=== PATIENT | female | born 1950 | race African-American/Black ===

== ENCOUNTER 2020-07-11 10:54 | Outpatient (REF) | payer MEDICARE, SELFPAY ==
[2020-07-11 14:04] LABS: Hematocrit 44.8 % (37-47); Hemoglobin 14.6 g/dl (12.0-16.0); Mean Corpuscular HGB Conc 32.6 g/dl (31.0-35.0); Mean Corpuscular Hemoglobin 30.6 pg (27.0-33.0); Mean Corpuscular Volume 93.9 fL (80-98); Platelet Count 224 X10*3/uL (160-400); Red Blood Count 4.77 X10*6/uL (4.20-5.50); Red Cell Distribution Width 13.9 % (11.0-16.0); White Blood Count 8.7 X10*3/uL (4.8-10.8)
[2020-07-11 14:27] LABS: Alanine Aminotransferase 22 U/L (0-31); Albumin Level 4.7 g/dL (3.5-5.0); Alkaline Phosphatase 96 U/L (39-117); Anion Gap 14 (12-20); Aspartate Amino Transferase 22 U/L (5-31); Bilirubin Direct 0.5 mg/dL (0.0-0.5); Bilirubin Total 1.2 mg/dL (0.0-1.0); Blood Urea Nitrogen 9 mg/dL (9-16); Calcium 9.6 mg/dL (8.4-10.2); Carbon Dioxide 29 mmol/L (22-29); Chloride 102 mmol/L (96-108); Estimated Glomerular Filt Rate 52; Glucose Fasting 119 mg/dL (60-99); Potassium 4.2 mmol/l (3.3-5.1); Sodium 141 mmol/L (135-145); Total Protein 7.4 g/dL (6.5-8.0)
== END 2020-07-11 10:55 | disposition home or self-care (01) ==
LOC: HO.HMGCLDS 10:54
PROVIDERS: PCP Physician Assistant; Visit Provider Physician Assistant
DX: Z01.818 Encounter for other preprocedural examination (principal)
CPT/HCPCS: 36415; 80048; 80053; 80076; 82248; 85027

== ENCOUNTER 2020-07-14 15:39 | Outpatient (REF) | payer MEDICARE, SELFPAY ==
[2020-07-14 15:48] LABS: Glucose Urine UA NEG (NEG); Leukocyte Esterase Urine NEG (NEG); Nitrite Urine NEG (NEG); Urine Blood NEG (NEG); Urine Ketones NEG (NEG); Urine Protein NEG (NEG-TRACE)
[2020-07-14 15:49] LABS: Appearance Urine CLEAR; Color Urine YELLOW
== END 2020-07-14 15:40 | disposition home or self-care (01) ==
LOC: HO.LNP 15:39
PROVIDERS: Physician Assistant; Visit Provider Internal Medicine
DX: R41.82 Altered mental status, unspecified (principal)
CPT/HCPCS: 81003

== ENCOUNTER 2020-07-25 12:09 | Day surgery (SDC) | payer MEDICARE, SELFPAY ==
[2020-07-15 10:04] VITALS: BMI 39.8
--- NOTE | 2020-07-18 14:45 | HO.ANESPROP2 ---
Documented by User: Alida Vazquez 07/18/20 14:46 HPI - Anesthesia Eval Consult details Narrative: 70yo F for Cataract Extraction No prev cataract PMFSH Past Medical History Medical History Bipolar 1 disorder Diabetes GERD (gastroesophageal reflux disease) Glaucoma Hyperlipidemia Schatzki's ring Family History Family History Father No problems noted. Mother No problems noted. Surgical History Surgical History History of section History of total abdominal hysterectomy Social History Social History Smoking Status: Former smoker Smoking Quit Date: > 10 yrs ago Use of substances other than those prescribed or required for medical reasons: No Advance Directives: No Advance Directives Information Provided: No Advance Directives on File: No Meds Allergies Allergy/AdvReac Type Severity Reaction Status Date / Time blueberry [Blueberry] Allergy Severe SWELLING Verified 07/06/20 11:45 mushroom Allergy Intermediate SWELLING Verified 07/06/20 11:45 shellfish derived Allergy Unknown UNKNOWN Verified 07/06/20 11:45 [SHELLFISH DERIVED] thioridazine Allergy Unknown Unknown Verified 07/06/20 11:45 tomato [TOMATO] Allergy Unknown UNKNOWN Verified 07/06/20 11:45 CHOCOLATE Allergy Intermediate ITCHING Uncoded 05/12/20 18:11 From MELLARIL Allergy Intermediate SHORTNESS Uncoded 05/12/20 18:11 OF BREATH From THORAZINE Allergy Intermediate SHORTNESS Uncoded 05/12/20 18:11 OF BREATH Home Medications Medication Instructions Recorded Confirmed Type hydralazine 10 mg tablet 10 mg PO BID 06/09/20 07/15/20 History aspirin 81 mg chewable tablet 1 tab PO DAILY 07/09/20 07/09/20 History atorvastatin 80 mg tablet 80 mg PO DAILY 07/09/20 07/15/20 History divalproex 250 mg tablet,delayed 250 mg PO DAILY 07/09/20 07/15/20 History release olanzapine 5 mg disintegrating 5 mg PO DAILY PRN 07/09/20 07/15/20 History tablet omeprazole 20 mg capsule,delayed 20 mg PO DAILY 07/09/20 07/15/20 History release nifedipine 1 tab PO DAILY 07/25/20 07/25/20 History Exam Exam Date and Time: July 18, 2020 1445 Height,Weight and Vital Signs: Height 5 ft 3 in Weight 102.058 kg Assessment and Plan Assessment Anesthesia Assessment: Chart Reviewed Documented by User: Mine Mueller 07/25/20 12:34 [facility] Past Medical History Medical History Bipolar 1 disorder Diabetes GERD (gastroesophageal reflux disease) Glaucoma Hyperlipidemia Schatzki's ring Family History Family History Father No problems noted. Mother No problems noted. Surgical History Surgical History History of section History of total abdominal hysterectomy Social History Social History Smoking Status: Former smoker Smoking Quit Date: > 10 yrs ago Use of substances other than those prescribed or required for medical reasons: No Advance Directives: No Advance Directives Information Provided: No Advance Directives on File: No Meds Allergies Allergy/AdvReac Type Severity Reaction Status Date / Time blueberry [Blueberry] Allergy Severe SWELLING Verified 07/06/20 11:45 mushroom Allergy Intermediate SWELLING Verified 07/06/20 11:45 shellfish derived Allergy Unknown UNKNOWN Verified 07/06/20 11:45 [SHELLFISH DERIVED] thioridazine Allergy Unknown Unknown Verified 07/06/20 11:45 tomato [TOMATO] Allergy Unknown UNKNOWN Verified 07/06/20 11:45 CHOCOLATE Allergy Intermediate ITCHING Uncoded 05/12/20 18:11 From MELLARIL Allergy Intermediate SHORTNESS Uncoded 05/12/20 18:11 OF BREATH From THORAZINE Allergy Intermediate SHORTNESS Uncoded 05/12/20 18:11 OF BREATH Home Medications Medication Instructions Recorded Confirmed Type hydralazine 10 mg tablet 10 mg PO BID 06/09/20 07/15/20 History aspirin 81 mg chewable tablet 1 tab PO DAILY 07/09/20 07/09/20 History atorvastatin 80 mg tablet 80 mg PO DAILY 07/09/20 07/15/20 History divalproex 250 mg tablet,delayed 250 mg PO DAILY 07/09/20 07/15/20 History release olanzapine 5 mg disintegrating 5 mg PO DAILY PRN 07/09/20 07/15/20 History tablet omeprazole 20 mg capsule,delayed 20 mg PO DAILY 07/09/20 07/15/20 History release nifedipine 1 tab PO DAILY 07/25/20 07/25/20 History Exam Airway Mallampati Class: II TM Dist: >3cm Loose/Missing/Broken Teeth: No Heart: RRR Lungs: CTA Assessment and Plan Assessment Anesthesia Assessment: Anesthesia Plan Discussed and Chart Reviewed Final Anesthetic Review NPO: Yes ASA Class: II Final Preanesthetic Review: Meds/Allgs Chart Reviewed and Consent Obtained/Reviewed Patient Risk: Low Procedure Risk: Low Anesthetic Plan Anesthetic Plan: MAC: Disposition: Standard PACU
--- NOTE | 2020-07-19 13:15 | MHC.SHP ---
Pre-Procedural Eval Section A The patient is an INPATIENT: No The History & Physical has been completed within 30 days and I have reviewed it.: Yes Section B Chief Complaint: Cataract Right Eye Allergies: Allergies Allergy/AdvReac Type Severity Reaction Status Date / Time blueberry [Blueberry] Allergy Severe SWELLING Verified 07/06/20 11:45 mushroom Allergy Intermediate SWELLING Verified 07/06/20 11:45 shellfish derived Allergy Unknown UNKNOWN Verified 07/06/20 11:45 [SHELLFISH DERIVED] thioridazine Allergy Unknown Unknown Verified 07/06/20 11:45 tomato [TOMATO] Allergy Unknown UNKNOWN Verified 07/06/20 11:45 CHOCOLATE Allergy Intermediate ITCHING Uncoded 05/12/20 18:11 From MELLARIL Allergy Intermediate SHORTNESS Uncoded 05/12/20 18:11 OF BREATH From THORAZINE Allergy Intermediate SHORTNESS Uncoded 05/12/20 18:11 OF BREATH Plan Diagnosis/Plan: Unchanged Patient has been examined and remains a candidate for the planned procedure
[2020-07-25 12:22] VITALS: BP 158/80; PULSE 70; RESP 16; TEMP 36.1; O2SAT 99
[2020-07-25 12:30] LABS: Glucose, Whole Blood 90 mg/dL (60-115)
[2020-07-25] MEDS: Tetracaine HCl/PF 0.5% Oph Sol 4 ML DROPS 1 DROP EYE-RIGHT (12:34)
[2020-07-25] MEDS: Tropicamide 1 % Ophth Sol 3 ML BTL 1 DROP EYE-RIGHT ×3 (12:37→12:42)
[2020-07-25] MEDS: Lactated Ringers 500 ML 50 ML IV (12:46)
[2020-07-25 13:15] VITALS: BP 141/82; PULSE 78; RESP 18; TEMP 36.1; O2SAT 99
--- NOTE | 2020-07-25 13:15 | HO.PNOPHT ---
Ophthalmology Procedure Procedure Date of Service: 07/25/20 Ophthalmology Viscoelastic: Healon Duet Dual Pack Pro Ophthalmology Lenses: TECCHRISTIE [id number] (18) Procedure Notes: PREOPERATIVE DIAGNOSIS: Decreased visual acuity right eye secondary to cataract POSTOPERATIVE DIAGNOSIS: Same PROCEDURE: Right cataract extraction with intraocular lens insertion SURGEON: Elias Worrell M.D. ANESTHESIA: Topical/MAC ESTIMATED BLOOD LOSS: None COMPLICATIONS: None After obtaining informed consent, the patient was brought to the operating room suite and placed in the supine position. After adequate sedation per anesthesia, topical drops of Tetracaine were given to the right eye. The eye was then prepped and draped in the usual sterile fashion. The operating room microscope was then positioned over the operative eye and a lid speculum placed. A paracentesis was created. Viscoelastic was then instilled into the anterior chamber. A three plane incision was then created temporally, utilizing a 2.85 mm keratome. Capsulotomy forceps were then utilized to create a circular tear capsulotomy. Hydrodissection and hydrodelineation were carried out until adequate mobilization of the nucleus occurred. Phacoemulsification was then utilized to remove the dense central nucleus followed by removal of the cortical material utilizing the automated aspiration irrigation unit. Viscoelastic was instilled into the posterior capsular bag followed by placement of a posterior chamber intraocular lens without difficulty. The residual Viscoelastic was then removed utilizing the automated IA machine. The wound was checked and found to be watertight. The patient tolerated the procedure well and the lid speculum was removed. Intracameral injection of Vigamox 0.1 mL followed by a subtenon injection of Kenalog-40 0.2 mL were administered. The patient will be seen in the a.m.
== END 2020-07-25 13:35 | disposition home or self-care (01) ==
PROVIDERS: PCP Physician Assistant; Visit Provider Ophthalmology
PROC: (CPT 66985; principal; 2020-07-25 14:00)
DX: H25.11 Age-related nuclear cataract, right eye (principal); E11.9 Type 2 diabetes mellitus without complications; I10 Essential (primary) hypertension; Z79.82 Long term (current) use of aspirin; Z79.899 Other long term (current) drug therapy
CPT/HCPCS: 66984; 82947; J2250; J3010; J3300; V2632

== ENCOUNTER 2020-08-08 08:49 | Day surgery (SDC) | payer MEDICARE, SELFPAY ==
[2020-07-15 10:10] VITALS: BMI 39.8
--- NOTE | 2020-08-04 08:06 | MHC.SHP ---
Pre-Procedural Eval Section A The patient is an INPATIENT: No The History & Physical has been completed within 30 days and I have reviewed it.: Yes Section B Chief Complaint: Cataract Left Eye Allergies: Allergies Allergy/AdvReac Type Severity Reaction Status Date / Time blueberry [Blueberry] Allergy Severe SWELLING Verified 08/02/20 10:43 mushroom Allergy Intermediate SWELLING Verified 08/02/20 10:43 shellfish derived Allergy Unknown UNKNOWN Verified 08/02/20 10:43 [SHELLFISH DERIVED] thioridazine Allergy Unknown Unknown Verified 08/02/20 10:43 tomato [TOMATO] Allergy Unknown UNKNOWN Verified 08/02/20 10:43 CHOCOLATE Allergy Intermediate ITCHING Uncoded 05/12/20 18:11 From MELLARIL Allergy Intermediate SHORTNESS Uncoded 05/12/20 18:11 OF BREATH From THORAZINE Allergy Intermediate SHORTNESS Uncoded 05/12/20 18:11 OF BREATH Plan Diagnosis/Plan: Unchanged Patient has been examined and remains a candidate for the planned procedure
--- NOTE | 2020-08-05 10:20 | HO.ANESPROP2 ---
Documented by User: Alida Vazquez 08/05/20 10:27 HPI - Anesthesia Eval Consult details Narrative: 70yo F for Cataract Extraction PCP cleared, over 30 days. Anesthesia to do preprocedural eval First cataract 07/25/20, Fent 25, Midaz 1 PMFSH Past Medical History Medical History Bipolar 1 disorder Diabetes GERD (gastroesophageal reflux disease) Glaucoma Hyperlipidemia Schatzki's ring Family History Family History Father No problems noted. Mother No problems noted. Surgical History Surgical History History of cataract surgery History of section History of total abdominal hysterectomy Social History Social History (Updated 08/02/20 @ 10:38 by Lillie Long) Alcohol intake: never Smoking Status: Former smoker Smoking Quit Date: > 10 yrs ago Use of substances other than those prescribed or required for medical reasons: No Advance Directives: No Advance Directives Information Provided: No Advance Directives on File: No Meds Allergies Allergy/AdvReac Type Severity Reaction Status Date / Time blueberry [Blueberry] Allergy Severe SWELLING Verified 08/02/20 10:43 mushroom Allergy Intermediate SWELLING Verified 08/02/20 10:43 shellfish derived Allergy Unknown UNKNOWN Verified 08/02/20 10:43 [SHELLFISH DERIVED] thioridazine Allergy Unknown Unknown Verified 08/02/20 10:43 tomato [TOMATO] Allergy Unknown UNKNOWN Verified 08/02/20 10:43 CHOCOLATE Allergy Intermediate ITCHING Uncoded 05/12/20 18:11 From MELLARIL Allergy Intermediate SHORTNESS Uncoded 05/12/20 18:11 OF BREATH From THORAZINE Allergy Intermediate SHORTNESS Uncoded 05/12/20 18:11 OF BREATH Home Medications Medication Instructions Recorded Confirmed Type hydralazine 10 mg tablet 10 mg PO BID 06/09/20 08/02/20 History aspirin 81 mg chewable tablet 1 tab PO DAILY 07/09/20 08/02/20 History atorvastatin 80 mg tablet 80 mg PO DAILY 07/09/20 08/02/20 History divalproex 250 mg tablet,delayed 250 mg PO DAILY 07/09/20 08/02/20 History release olanzapine 5 mg disintegrating 5 mg PO DAILY PRN 07/09/20 08/02/20 History tablet omeprazole 20 mg capsule,delayed 20 mg PO DAILY 07/09/20 08/02/20 History release nifedipine 1 tab PO DAILY 07/25/20 08/02/20 History Exam Exam Date and Time: August 05, 2020 1020 Height,Weight and Vital Signs: Height 5 ft 3 in Weight 102.058 kg Assessment and Plan Assessment Anesthesia Assessment: Chart Reviewed Documented by User: Edwige Bautista 08/08/20 10:07 [facility] Past Medical History Medical History Bipolar 1 disorder Diabetes GERD (gastroesophageal reflux disease) Glaucoma Hyperlipidemia Schatzki's ring Family History Family History Father No problems noted. Mother No problems noted. Surgical History Surgical History History of cataract surgery History of section History of total abdominal hysterectomy Social History Social History (Updated 08/02/20 @ 10:38 by Lillie Long) Alcohol intake: never Smoking Status: Former smoker Smoking Quit Date: > 10 yrs ago Use of substances other than those prescribed or required for medical reasons: No Advance Directives: No Advance Directives Information Provided: No Advance Directives on File: No Meds Allergies Allergy/AdvReac Type Severity Reaction Status Date / Time blueberry [Blueberry] Allergy Severe SWELLING Verified 08/02/20 10:43 mushroom Allergy Intermediate SWELLING Verified 08/02/20 10:43 shellfish derived Allergy Unknown UNKNOWN Verified 08/02/20 10:43 [SHELLFISH DERIVED] thioridazine Allergy Unknown Unknown Verified 08/02/20 10:43 tomato [TOMATO] Allergy Unknown UNKNOWN Verified 08/02/20 10:43 CHOCOLATE Allergy Intermediate ITCHING Uncoded 05/12/20 18:11 From MELLARIL Allergy Intermediate SHORTNESS Uncoded 05/12/20 18:11 OF BREATH From THORAZINE Allergy Intermediate SHORTNESS Uncoded 05/12/20 18:11 OF BREATH Home Medications Medication Instructions Recorded Confirmed Type hydralazine 10 mg tablet 10 mg PO BID 06/09/20 08/02/20 History aspirin 81 mg chewable tablet 1 tab PO DAILY 07/09/20 08/02/20 History atorvastatin 80 mg tablet 80 mg PO DAILY 07/09/20 08/02/20 History divalproex 250 mg tablet,delayed 250 mg PO DAILY 07/09/20 08/02/20 History release olanzapine 5 mg disintegrating 5 mg PO DAILY PRN 07/09/20 08/02/20 History tablet omeprazole 20 mg capsule,delayed 20 mg PO DAILY 07/09/20 08/02/20 History release nifedipine 1 tab PO DAILY 07/25/20 08/02/20 History Exam Airway Mallampati Class: II TM Dist: >3cm Neck ROM: Full Denture: Upper Partial: Upper Heart: RRR Lungs: TA BL Assessment and Plan Assessment Anesthesia Assessment: Anesthesia Plan Discussed and Chart Reviewed Final Anesthetic Review NPO: Yes (Sip water with meds) ASA Class: III Final Preanesthetic Review: Meds/Allgs Chart Reviewed and Consent Obtained/Reviewed Patient Risk: Low Procedure Risk: Low Anesthetic Plan Anesthetic Plan: MAC: Disposition: Standard PACU
--- NOTE | 2020-08-05 10:20 | MHC.SHP ---
Documented by User: Alida Vazquez 08/05/20 10:27 Pre-Procedural Eval Section B Chief Complaint: Cataract Left Eye Details of Present Illness: decreased vision in left eye Relevant Family History (Specify if Yes): No Relevant Social History: Tobacco Use (former smoker) Present Medications: see [place] [facility] assessment Medical History: Significant History (See [facility]) History of Previous Operations: Relevant previous surgery/procedure and date(s) (right eye cataract procedure performed 07/25/20 without issue) Allergies: Allergies Allergy/AdvReac Type Severity Reaction Status Date / Time blueberry [Blueberry] Allergy Severe SWELLING Verified 08/02/20 10:43 mushroom Allergy Intermediate SWELLING Verified 08/02/20 10:43 shellfish derived Allergy Unknown UNKNOWN Verified 08/02/20 10:43 [SHELLFISH DERIVED] thioridazine Allergy Unknown Unknown Verified 08/02/20 10:43 tomato [TOMATO] Allergy Unknown UNKNOWN Verified 08/02/20 10:43 CHOCOLATE Allergy Intermediate ITCHING Uncoded 05/12/20 18:11 From MELLARIL Allergy Intermediate SHORTNESS Uncoded 05/12/20 18:11 OF BREATH From THORAZINE Allergy Intermediate SHORTNESS Uncoded 05/12/20 18:11 OF BREATH Plan Patient has been examined and remains a candidate for the planned procedure Documented by User: Velasquez Kraft 08/08/20 10:27 Pre-Procedural Eval Section B Chief Complaint: Cataract Left Eye Relevant Family History (Specify if Yes): No Relevant Social History: None Present Medications: see [place] [facility] assessment Medical History: Significant History History of Previous Operations: Relevant previous surgery/procedure and date(s) Allergies: see chart Review of Systems Sugical H&P ROS: Negative: Constitution, Cardiovascular, Respiratory, Neurological, Psychiatric, Hem-Onc, Allergic/Immunologic, Gastrointestinal, Genitourinary, Musculoskeletal, Integumentary, Endocrine and Eyes/Ears/Nose/Throat Exam Surgical H&P Exam: Normal: HEENT, Normal: Heart, Normal: Lungs, Normal: Extremities, Normal: Abdomen, Normal: Skin and Normal: Neurological Plan Diagnosis/Plan: Unchanged
[2020-08-08 10:12] VITALS: BP 155/82; PULSE 79; RESP 16; TEMP 36.3; O2SAT 98
[2020-08-08 10:20] LABS: Glucose, Whole Blood 96 mg/dL (60-115)
[2020-08-08] MEDS: Tetracaine HCl/PF 0.5% Oph Sol 4 ML DROPS 1 DROP EYE-LEFT (10:29)
[2020-08-08] MEDS: Tropicamide 1 % Ophth Sol 3 ML BTL 1 DROP EYE-LEFT ×3 (10:32→10:40)
[2020-08-08] MEDS: Phenylephrine HCL 2.5% Oph SoL 2 ML BOTTLE 1 DROP EYE-LEFT ×3 (10:34→10:42)
[2020-08-08] MEDS: Lactated Ringers 500 ML 50 ML IV (10:36)
--- NOTE | 2020-08-08 11:14 | HO.PNOPHT ---
Ophthalmology Procedure Procedure Date of Service: 08/08/20 Ophthalmology Viscoelastic: Healon Duet Dual Pack Pro Ophthalmology Lenses: TECNIS [id number] (18.5) Procedure Notes: PREOPERATIVE DIAGNOSIS: Decreased visual acuity left eye secondary to cataract POSTOPERATIVE DIAGNOSIS: Same PROCEDURE: Left cataract extraction with intraocular lens insertion SURGEON: Elias Worrell M.D. ANESTHESIA: Topical/MAC ESTIMATED BLOOD LOSS: None COMPLICATIONS: None After obtaining informed consent, the patient was brought to the operation room suite and placed in the supine position. After adequate sedation per anesthesia, topical drops of Tetracaine were given to the left eye. The eye was then prepped and draped in the usual sterile fashion. The operating room microscope was then positioned over the operative eye and a lid speculum placed. A paracentesis was created. Viscoelastic was then instilled into the anterior chamber. A three plane incision was then created temporally, utilizing a 2.85 mm keratome. Capsulotomy forceps were then utilized to create a circular tear capsulotomy. Hydrodissection and hydrodelineation were carried out until adequate mobilization of the nucleus occurred. Phacoemulsification was then utilized to remove the dense central nucleus followed by removal of the cortical material utilizing the automated aspiration irrigation unit. Viscoat elastic was instilled into the posterior capsular bag followed by placement of a posterior chamber intraocular lens without difficulty. The residual Viscoat elastic was then removed utilizing the automated IA machine. The wound was check and found to be watertight. The patient tolerated the procedure well and the lid speculum was removed. Intracameral injection of Vigamox 0.1 mL followed by a subtenon injection of Kenalog-40 0.2 mL were administered. The patient will be seen in the a.m.
[2020-08-08 11:15] VITALS: BP 153/72; PULSE 88; RESP 12; TEMP 36.1; O2SAT 100
--- NOTE | 2020-08-08 11:17 | HO.POSTANES ---
Post Anesthesia Evaluation Post Anesthesia Evaluation Vital Signs: Vital Signs Temp Pulse Resp BP Pulse Ox 08/08/20 10:12 97.4 F 79 16 155/82 H 98 Anesthesia: Monitored Mental Status: Awake Pain Control: Satisfactory Nausea/Vomiting: None Hydration: Adequate Anesthesia-Related Issues: No Anes. Related Issues
[2020-08-08 11:30] VITALS: BP 145/77; PULSE 84; RESP 18; TEMP 36.2; O2SAT 96
== END 2020-08-08 11:55 | disposition home or self-care (01) ==
PROVIDERS: PCP Physician Assistant; Visit Provider Ophthalmology
PROC: (CPT 66985; principal; 2020-08-08 10:50)
DX: H25.12 Age-related nuclear cataract, left eye (principal); H54.7 Unspecified visual loss; H40.9 Unspecified glaucoma; E11.9 Type 2 diabetes mellitus without complications; I10 Essential (primary) hypertension; F31.9 Bipolar disorder, unspecified; Z96.1 Presence of intraocular lens; Z79.899 Other long term (current) drug therapy; Z79.82 Long term (current) use of aspirin; Z87.891 Personal history of nicotine dependence; Z88.8 Allergy status to other drugs, medicaments and biological substances
CPT/HCPCS: 66984; 82947; J2250; J3010; J3300; V2632

== ENCOUNTER 2020-11-04 09:41 | Outpatient (REF) | payer MEDICARE, SELFPAY ==
[2020-11-04 11:31] LABS: Alanine Aminotransferase 16 U/L (0-31); Albumin Level 4.5 g/dL (3.5-5.0); Alkaline Phosphatase 94 U/L (39-117); Anion Gap 11 (12-20); Aspartate Amino Transferase 18 U/L (5-31); Bilirubin Total 0.9 mg/dL (0.0-1.0); Blood Urea Nitrogen 12 mg/dL (9-16); Calcium 9.4 mg/dL (8.4-10.2); Carbon Dioxide 30 mmol/L (22-29); Chloride 105 mmol/L (96-108); Cholesterol 147 mg/dL; Estimated Glomerular Filt Rate 58; Glucose Fasting 106 mg/dL (60-99); HDL Cholesterol 37 mg/dL; LDL Cholesterol Calculated 84 mg/dl; Potassium 4.1 mmol/L (3.3-5.1); Sodium 142 mmol/L (135-145); Total Protein 7.1 g/dL (6.5-8.0); Triglycerides 133 mg/dL
[2020-11-04 11:44] LABS: Estimated Average Glucose 134 mg/dL; Hemoglobin A1c % 6.3 %
[2020-11-04 11:54] LABS: TSH reflex Free T4 2.24 uIU/mL (0.32-4.0)
== END 2020-11-04 09:42 | disposition home or self-care (01) ==
LOC: HO.HMGCLDS 09:41
PROVIDERS: PCP Physician Assistant; Visit Provider Physician Assistant
DX: I10 Essential (primary) hypertension (principal); E11.9 Type 2 diabetes mellitus without complications
CPT/HCPCS: 36415; 80053; 80061; 83036; 84443

== ENCOUNTER → 2020-12-14 10:41 | Outpatient (REF) | payer MEDICARE, SELFPAY | LOC: HO.SL 10:41 | PROVIDERS: PCP Internal Medicine; Visit Provider Internal Medicine | DX: G47.33 Obstructive sleep apnea (adult) (pediatric) (principal); R40.0 Somnolence; G25.81 Restless legs syndrome; E66.9 Obesity, unspecified | CPT/HCPCS: 95806 ==

== ENCOUNTER 2021-08-11 10:22 | Outpatient (REF) | payer MEDICARE, SELFPAY ==
[2021-08-11 14:35] LABS: Albumin Level 4.3 g/dL (3.5-5.0); Anion Gap 14 (12-20); Blood Urea Nitrogen 15 mg/dL (9-16); Calcium 9.7 mg/dL (8.4-10.2); Carbon Dioxide 27 mmol/L (22-29); Chloride 105 mmol/L (96-108); Estimated Glomerular Filt Rate 50; Glucose Random 90 mg/dL (60-115); Phosphorus 3.4 mg/dL (2.7-4.5); Potassium 3.7 mmol/L (3.3-5.1); Sodium 142 mmol/L (135-145)
== END 2021-08-11 10:23 | disposition home or self-care (01) ==
LOC: HO.HMGCLDS 10:22
PROVIDERS: Absent Provider Internal Medicine; PCP Internal Medicine; Visit Provider Internal Medicine Hypertension Specialist
DX: I10 Essential (primary) hypertension (principal)
CPT/HCPCS: 36415; 80051; 82040; 82310; 82565; 82947; 84100; 84520

== ENCOUNTER 2021-09-18 10:17 | Outpatient (REF) | payer MEDICARE, SELFPAY ==
[2021-09-18 12:23] LABS: Rheumatoid Factor < 15.0 IU/mL (<15.0)
== END 2021-09-18 10:18 | disposition home or self-care (01) ==
LOC: HO.HMGCLDS 10:17
PROVIDERS: Visit Provider Internal Medicine Hypertension Specialist
DX: I10 Essential (primary) hypertension (principal)
CPT/HCPCS: 36415; 86431

== ENCOUNTER 2021-10-31 11:27 | Outpatient (REF) | payer MEDICARE, SELFPAY ==
--- NOTE | ~2021-10-31 | XR_ITS ---
EXAMINATION: XR LUMBOSACRAL SPINE CLINICAL INFORMATION: Lower back pain COMPARISON: 07/14/2014 TECHNIQUE: Three views of the lumbosacral spine. FINDINGS: There is no acute fracture or subluxation. Vertebral body height and alignment maintained. Mild disc space narrowing of L4-L5. Small multilevel endplate osteophytes with facet arthropathy. The sacroiliac joints are symmetric. The sacrum is intact. XR/XR lumbar spine 2-3V IMPRESSION: Mild multilevel degenerative changes of the lumbar spine which have progressed from the 2014 study.
== END 2021-10-31 11:28 | disposition home or self-care (01) ==
LOC: HO.HMGCX 11:27
PROVIDERS: Visit Provider Internal Medicine
DX: M54.50 Low back pain, unspecified (principal)
CPT/HCPCS: 72100

== ENCOUNTER 2022-03-09 12:15 | Outpatient (REF) | payer MEDICARE, SELFPAY ==
--- NOTE | ~2022-03-09 | MM_ITS ---
EXAMINATION: MM SCREENING DIGITAL BREAST TOMOSYNTHESIS, BILATERAL CLINICAL INFORMATION: Screening. Asymptomatic. The lifetime risk of breast cancer based on the Tyrer-Cuzick Model is 8.9%. COMPARISON: Mammography: January 06, 2018 and studies dating back to December 22, 2014 TECHNIQUE: Digital breast tomosynthesis is performed in both the craniocaudal and mediolateral oblique views along with computer-aided detection (CAD). Synthesized 2D images are generated from the tomosynthesis. FINDINGS: The breasts are heterogeneously dense, which may obscure small masses (ACR BI-RADS breast composition Category c). There are no significant masses, abnormal calcifications, or other abnormalities. MM/MM tomosynthesis screening BI IMPRESSION: There are no significant changes from prior study. ASSESSMENT: BI-RADS 1: Negative RECOMMENDATION: Routine annual mammography screening. This patient's information was entered into a reminder system with a target due date for their next mammogram.
== END 2022-03-09 12:16 | disposition home or self-care (01) ==
LOC: HO.MAMMO 12:15
PROVIDERS: Visit Provider Internal Medicine
DX: Z12.31 Encounter for screening mammogram for malignant neoplasm of breast (principal)
CPT/HCPCS: 77063; 77067

== ENCOUNTER 2022-05-28 09:53 | Outpatient (REF) | payer MEDICARE, SELFPAY ==
[2022-05-28 12:10] LABS: Estimated Average Glucose 131 mg/dL; Hemoglobin A1c % 6.2 %
[2022-05-28 12:11] LABS: Free T4 (Free Thyroxine) 1.25 ng/dL (0.71-1.85); Thyroid Stimulating Hormone 2.04 uIU/mL (0.32-4.0)
[2022-05-28 12:20] LABS: Folate 12.7 ng/mL (> or = 4.0); Vitamin B12 938 pg/mL (200-900)
== END 2022-05-28 09:54 | disposition home or self-care (01) ==
LOC: HO.HMGCLDS 09:53
PROVIDERS: PCP Internal Medicine; Visit Provider Internal Medicine
DX: E11.65 Type 2 diabetes mellitus with hyperglycemia (principal)
CPT/HCPCS: 36415; 82306; 82607; 82746; 83036; 84439; 84443

== ENCOUNTER 2023-10-01 16:11 | Inpatient (IN) | payer MEDICARE, SELFPAY ==
[2023-10-01 16:40] VITALS: BP 186/83; PULSE 97; PULSE 98; RESP 18; TEMP 36.6; O2SAT 97; BMI 31.6
--- NOTE | 2023-10-01 16:47 | ECG_ITS ---
Test Reason : QHECK QTC Blood Pressure : / mmHG Vent. Rate : 082 BPM Atrial Rate : 082 BPM P-R Int : 174 ms QRS Dur : 072 ms QT Int : 378 ms P-R-T Axes : 049 004 036 degrees QTc Int : 441 ms Normal sinus rhythm Normal ECG When compared with ECG of 21-JAN-2019 12:08, IA interval has decreased Referred By: Floyd Romero Electronically Signed By:TRACEY NAZARIO
[2023-10-01 17:01] LABS: Appearance Urine Clear; Color Urine Yellow; Glucose Urine UA Negative (Negative); Leukocyte Esterase Urine Negative (Negative); Nitrite Urine Positive (Negative); PH 5.5 (5.0-9.0); UMIC TRIGGER UA YES; Urine Blood Negative (Negative); Urine Ketones Negative (Negative); Urine Protein Negative (Neg-Trace)
[2023-10-01 17:06] LABS: Amphetamine Screen Urine Not Detected (Not Detect); Barbiturates, Urine Not Detected (Not Detect); Benzodiazepines Screen Urine Not Detected (Not Detect); Cannabinoid Screen Urine Not Detected (Not Detect); Cocaine Screen Urine Not Detected (Not Detect); Fentanyl, urine Not Detected (Not Detect); Opiate Screen Urine Not Detected (Not Detect); Phencyclidine Screen Urine Not Detected (Not Detect)
[2023-10-01 17:11] LABS: MANUAL DIFF FLAG NO
[2023-10-01 17:12] LABS: Basophils Absolute Auto 0.1 X10*3/uL (0.0-0.2); Basophils Percent Auto 0.6 % (0-2); Eosinophils Absolute Auto 0.2 X10*3/uL (0.0-0.4); Eosinophils Percent Auto 2.7 % (0-4); Hematocrit 41.6 % (37.0-47.0); Hemoglobin 14.1 g/dl (12.0-16.0); Imm Gran Abs Auto 0.02 X10*3/uL (0.00-0.03); Imm Gran Pct Auto 0.2 % (0.0-0.4); Lymphocytes Absolute Auto 3.7 X10*3/uL (1.2-4.9); Lymphocytes Percent Auto 44.2 % (20-40); Mean Corpuscular HGB Conc 33.9 g/dl (31.0-35.0); Mean Corpuscular Hemoglobin 30.6 pg (27.0-33.0); Mean Corpuscular Volume 90.2 fL (80.0-98.0); Mean Platelet Volume 9.9 fL (9.4-12.3); Monocytes Absolute Auto 0.6 X10*3/uL (0.1-1.2); Monocytes Percent Auto 7.4 % (2-11); Neutrophils Absolute Auto 3.8 x10*3/uL (2.0-8.3); Neutrophils Percent Auto 44.9 % (45-73); Platelet Count 154 X10*3/uL (160-400); Red Blood Count 4.61 X10*6/uL (4.20-5.50); Red Cell Distribution Width 13.1 % (11.0-16.0); White Blood Count 8.5 X10*3/uL (4.8-10.8)
--- NOTE | 2023-10-01 17:12 | PC.NURSE ---
pt alert to self only, iv inserted, labs drawn, nasal swab obtained, ekg performed, pt denies pain/discomfort, pt section 12 has 1:1 sitter, denies si/hi, call borden within reach, will continue to monitor
[2023-10-01 17:14] LABS: Bacteria Urine 1+ (None Seen); Hyaline Casts Urine 0-2 /LPF (0-2); RBC Urine 0-2 /HPF (0-2); WBC Urine 0-5 /HPF (0-5)
--- NOTE | 2023-10-01 17:16 | ED_ITS ---
HPI - General Adult General Chief complaint: Altered Mental Status Stated complaint: from SNF, cc of erratic behavior, confusion Time Seen by Provider: 10/01/23 16:35 Source: patient, EMS, RN notes reviewed and old records reviewed Mode of arrival: EMS Limitations: altered mental status History of Present Illness HPI narrative: 73-year-old female with past medical history significant for diabetes, schizophrenia, depressive type, hypertension, history of GERD, hyperlipidemia presents for evaluation of erratic behavior. She arrives on a section 12 from a half-way facility Per the section 12 the patient has been standing in the hallway and yelling randomly, she has had broken glass in her room and is unable to manage her diabetes care In the ER the patient is calm and cooperative She states that she does not know why she is here or what she wants from us. She states that she has no pain but also complains of a headache She is ambulatory with a steady, even gait Related Data Home Medications Medication Instructions Recorded Confirmed divalproex 250 mg tablet,delayed 250 mg PO DAILY 07/09/20 02/16/22 release latanoprost (PF) 0.005 % eye drops 1 drp ophthalmic (eye) QPM 11/24/20 02/16/22 olanzapine 5 mg disintegrating 5 mg PO DAILY 08/16/21 02/16/22 tablet valsartan 80 1 tab PO DAILY 08/16/21 02/16/22 mg-hydrochlorothiazide 12.5 mg tablet brimonidine 0.2 % eye drops 1 drp ophthalmic (eye) TID 06/01/22 nifedipine 60 mg tablet,extended 60 mg PO DAILY 06/01/22 release olanzapine 20 mg disintegrating 15 mg PO BEDTIME 06/01/22 tablet Previous Rx's Medication Instructions Recorded blood-glucose meter (FreeStyle #1 ea 02/16/22 Lite Meter kit) meloxicam 7.5 mg tablet 7.5 mg PO DAILY #20 tabs 02/16/22 atorvastatin 20 mg tablet 20 mg PO DAILY #90 tabs 06/21/22 calcium carbonate 500 mg calcium 500 mg PO DAILY 90 days #90 tabs 12/18/22 (1,250 mg) tablet cholecalciferol (vitamin D3) 25 25 mcg PO DAILY #90 caps 12/18/22 mcg (1,000 unit) capsule docusate sodium 100 mg capsule 100 mg PO DAILY #90 caps 12/26/22 (Colace) alcohol swabs (Alcohol Pads) See Rx Instructions topical 02/20/23 DIRECTED for diabetes mellitus #100 pad blood sugar diagnostic (FreeStyle #50 strips 02/20/23 Lite Strips) lancets 28 gauge (FreeStyle ##100 03/29/23 Lancets) omeprazole 20 mg capsule,delayed 20 mg PO DAILY 90 days #90 caps 03/29/23 release Allergies Allergy/AdvReac Type Severity Reaction Status Date / Time blueberry [Blueberry] Allergy Severe SWELLING Verified 10/01/23 16:40 lisinopril Allergy Intermediate cough Verified 10/01/23 16:40 mushroom Allergy Intermediate SWELLING Verified 10/01/23 16:40 shellfish derived Allergy Unknown UNKNOWN Verified 10/01/23 16:40 [SHELLFISH DERIVED] thioridazine Allergy Unknown Unknown Verified 10/01/23 16:40 tomato [TOMATO] Allergy Unknown UNKNOWN Verified 10/01/23 16:40 CHOCOLATE Allergy Intermediate ITCHING Uncoded 01/25/23 10:42 From MELLARIL Allergy Intermediate SHORTNESS Uncoded 01/25/23 10:42 OF BREATH From THORAZINE Allergy Intermediate SHORTNESS Uncoded 01/25/23 10:42 OF BREATH Review of Systems 2 Constitutional: Constitutional: Denies chills, Denies fever(s) and Reports headache(s) ENT: Reports headache(s) Cardiovascular: Cardiovascular: Denies chest pain and Denies dyspnea Respiratory: Respiratory: Denies cough and Denies dyspnea Gastrointestinal: Gastrointestinal: Denies abdominal pain, Denies nausea and Denies vomiting Musculoskeletal: Musculoskeletal: Denies back pain Integumentary/Breasts: Skin/Breast: Denies rash Neurologic: Reports headache(s) and Denies focal weakness [facility] Past Medical History Medical History Bipolar 1 disorder GERD (gastroesophageal reflux disease) Glaucoma Hyperlipidemia Schatzki's ring Surgical History History of cataract surgery History of section History of total abdominal hysterectomy Family History Family History (Updated 01/25/23 @ 10:43 by Marley Black CMA) Father No problems noted. Mother No problems noted. Social History Social History Housing: Apartment Alcohol intake: never Patient Tobacco Use Status: Former Tobacco user Tobacco use type: Cigarette e-Cigarette/Vaping Use: Never Used Second Hand Smoke Exposure: No Advance Directives: No Advance Directives Information Provided: Yes service: No Current occupational status: disabled Cognitive needs: Yes Hearing needs: Yes Vision needs: Yes Physical Exam ED Vital Signs: Vital Signs - 24 hr 10/01/23 16:40 10/01/23 23:08 10/02/23 06:33 Temperature 97.8 F Pulse Rate 98 83 Respiratory Rate 18 14 18 Blood Pressure 186/83 H Pulse Oximetry 97 97 Oxygen Delivery Method Room Air Room Air BMI result Body Mass Index 31.6 Const General: healthy appearing, comfortable, no acute distress, alert and awake Nutritional Appearance: well nourished HENMT Head: Yes normocephalic and Yes atraumatic Eyes Eyelids: Yes eyelids normal Conjunctivae: conjunctivae normal Sclerae: sclerae normal Corneas: corneas normal Pupils: Equal, round and reactive pupils present EOM: EOMs intact bilaterally Neck Neck: Yes full ROM Resp Effort & Inspection: normal respiratory effort, able to speak in complete sentences and not labored Cardio Rate: regular rate Rhythm: regular rhythm GI Inspection: No distended Palpation (GI): Soft to palpation, not firm, nontender, no guarding and not rigid Skin General skin exam: elasticity normal Neuro Cranial nerves: Yes CN's II-XII intact bilaterally, Yes Equal, round and reactive pupils present and Yes Bilaterally intact EOM present Cognition (Neuro): normal cognition Extrem Other: Moving all extremities well without any obvious deformities Course Course Course Narrative: Physician observation continued. VS stable, on ceftin for UTI, currently given ODT zyprexa this AM she is [facility] inpatient bed search 837am 10/02/23. Medications Administered Generic Name Dose Route Start Last Admin Trade Name Freq PRN Reason Stop Dose Admin Cefuroxime Axetil 250 mg 10/01/23 23:45 10/02/23 08:09 Cefuroxime Axetil 250 Mg Tablet PO 10/06/23 09:01 250 mg BID EDIN Administration Discontinued Medications Generic Name Dose Route Start Last Admin Trade Name Freq PRN Reason Stop Dose Admin Acetaminophen 650 mg 10/01/23 22:49 10/01/23 23:05 Acetaminophen 325 Mg Tablet PO 10/01/23 22:50 Not Given ONCE ONE Olanzapine 10 mg 10/02/23 01:05 10/02/23 01:39 Olanzapine Odt 10 Mg [facility] 10/02/23 01:06 10 mg ONCE ONE Administration Olanzapine 10 mg 10/02/23 08:02 10/02/23 08:09 Olanzapine Odt 10 Mg Tab.[facility] 10/02/23 08:03 10 mg ONCE ONE Administration Medical Decision Making Medical Decision Making [facility] Narrative: Patient is well-appearing, in no acute distress. Given the reported altered mental status we will check basic labs, UA, CT scan the brain. The patient did complain of a headache, she does not appear to have any focal deficits, is ambulating with a steady, even gait. Likely plan for care team evaluation and likely psychiatry consultation in the morning pending medical clearance Differential Diagnosis Differential Diagnoses: The differential diagnosis associated with the presentation includes Schizophrenia Agitation UTI Acute delirium Diabetes Metabolic encephalopathy Intracranial hemorrhage less likely Lab Data 10/01/23 17:07 10/01/23 17:08 Labs: Lab Results 10/01/23 10/01/23 10/01/23 Range/Units 16:52 16:53 17:07 WBC 8.5 (4.8-10.8) X10*3/uL RBC 4.61 (4.20-5.50) X10*6/uL Hgb 14.1 (12.0-16.0) g/dl Hct 41.6 (37.0-47.0) % MCV 90.2 (80.0-98.0) fL MCH 30.6 (27.0-33.0) pg MCHC 33.9 (31.0-35.0) g/dl RDW 13.1 (11.0-16.0) % Plt Count 154 L (160-400) X10*3/uL MPV 9.9 (9.4-12.3) fL Immature Gran % (Auto) 0.2 (0.0-0.4) % Neut % (Auto) 44.9 L (45-73) % Lymph % (Auto) 44.2 H (20-40) % [place] % (Auto) 7.4 (2-11) % Eos % (Auto) 2.7 (0-4) % Baso % (Auto) 0.6 (0-2) % Lymph # (Auto) 3.7 (1.2-4.9) X10*3/uL [place] # (Auto) 0.6 (0.1-1.2) X10*3/uL Eos # (Auto) 0.2 (0.0-0.4) X10*3/uL Baso # (Auto) 0.1 (0.0-0.2) X10*3/uL Abs Immat Gran (auto) 0.02 (0.00-0.03) X10*3/uL Absolute Neuts (auto) 3.8 (2.0-8.3) x10*3/uL Absolute Nucleated RBC 0.000 (0.0-0.012) X10*3/uL Nucleated RBC % (auto) 0.0 (0.0-0.2) /100WBC Sodium (135-145) mmol/L Potassium (3.3-5.1) mmol/L Chloride (96-108) mmol/L Carbon Dioxide (22-29) mmol/L Anion Gap (12-20) BUN (9-16) mg/dL Creatinine (0.5-1.4) mg/dL Estim Creat Clear Calc Estimated GFR Random Glucose (60-115) mg/dL Calcium (8.4-10.2) mg/dL Total Bilirubin (0.0-1.0) mg/dL AST (5-31) U/L ALT (0-31) U/L Alkaline Phosphatase (39-117) U/L Total Protein (6.5-8.0) g/dL Albumin (3.5-5.0) g/dL Urine Color Yellow Urine Appearance Clear Urine pH 5.5 (5.0-9.0) Ur Specific [place] 1.010 (1.005-1.025) Urine Protein Negative (Neg-Trace) mg/dL Urine Glucose (UA) Negative (Negative) mg/dL Urine Ketones Negative (Negative) mg/dL Urine Blood Negative (Negative) Urine Nitrite Positive H (Negative) Ur Leukocyte Esterase Negative (Negative) Urine RBC 0-2 (0-2) /HPF Urine WBC 0-5 (0-5) /HPF Ur Squamous Epith Cells 3-5 (0-2) /HPF Urine Bacteria 1+ (None Seen) Hyaline Casts 0-2 (0-2) /LPF Urine Yeast Present Salicylates < 5.0 L (15-30) mg/dL Urine Opiates Screen Not Detected (Not Detect) Urine Fentanyl Screen Not Detected (Not Detect) Acetaminophen < 3 (<30) mcg/mL Ur Barbiturates Screen Not Detected (Not Detect) Ur Phencyclidine Scrn Not Detected (Not Detect) Ur Amphetamines Screen Not Detected (Not Detect) U Benzodiazepines Scrn Not Detected (Not Detect) Urine Cocaine Screen Not Detected (Not Detect) U Marijuana (THC) Screen Not Detected (Not Detect) Ethyl Alcohol mg/dL COVID-19 (MANNIE) (Negative) COVID-19 Clin Com 10/01/23 10/01/23 Range/Units 17:08 17:50 WBC (4.8-10.8) X10*3/uL RBC (4.20-5.50) X10*6/uL Hgb (12.0-16.0) g/dl Hct (37.0-47.0) % MCV (80.0-98.0) fL MCH (27.0-33.0) pg MCHC (31.0-35.0) g/dl RDW (11.0-16.0) % Plt Count (160-400) X10*3/uL MPV (9.4-12.3) fL Immature Gran % (Auto) (0.0-0.4) % Neut % (Auto) (45-73) % Lymph % (Auto) (20-40) % [place] % (Auto) (2-11) % Eos % (Auto) (0-4) % Baso % (Auto) (0-2) % Lymph # (Auto) (1.2-4.9) X10*3/uL [place] # (Auto) (0.1-1.2) X10*3/uL Eos # (Auto) (0.0-0.4) X10*3/uL Baso # (Auto) (0.0-0.2) X10*3/uL Abs Immat Gran (auto) (0.00-0.03) X10*3/uL Absolute Neuts (auto) (2.0-8.3) x10*3/uL Absolute Nucleated RBC (0.0-0.012) X10*3/uL Nucleated RBC % (auto) (0.0-0.2) /100WBC Sodium 142 (135-145) mmol/L Potassium 3.7 (3.3-5.1) mmol/L Chloride 107 (96-108) mmol/L Carbon Dioxide 23 (22-29) mmol/L Anion Gap 16 (12-20) BUN 13 (9-16) mg/dL Creatinine 0.93 (0.5-1.4) mg/dL Estim Creat Clear Calc 58.7 Estimated GFR 59 Random Glucose 103 (60-115) mg/dL Calcium 9.8 (8.4-10.2) mg/dL Total Bilirubin 1.0 (0.0-1.0) mg/dL AST 36 H (5-31) U/L ALT 22 (0-31) U/L Alkaline Phosphatase 81 (39-117) U/L Total Protein 7.2 (6.5-8.0) g/dL Albumin 4.3 (3.5-5.0) g/dL Urine Color Urine Appearance Urine pH (5.0-9.0) Ur Specific [place] (1.005-1.025) Urine Protein (Neg-Trace) mg/dL Urine Glucose (UA) (Negative) mg/dL Urine Ketones (Negative) mg/dL Urine Blood (Negative) Urine Nitrite (Negative) Ur Leukocyte Esterase (Negative) Urine RBC (0-2) /HPF Urine WBC (0-5) /HPF Ur Squamous Epith Cells (0-2) /HPF Urine Bacteria (None Seen) Hyaline Casts (0-2) /LPF Urine Yeast Salicylates (15-30) mg/dL Urine Opiates Screen (Not Detect) Urine Fentanyl Screen (Not Detect) Acetaminophen (<30) mcg/mL Ur Barbiturates Screen (Not Detect) Ur Phencyclidine Scrn (Not Detect) Ur Amphetamines Screen (Not Detect) U Benzodiazepines Scrn (Not Detect) Urine Cocaine Screen (Not Detect) U Marijuana (THC) Screen (Not Detect) Ethyl Alcohol < 10 mg/dL COVID-19 (MANNIE) Negative (Negative) COVID-19 Clin Com See Note Independent Interpretation I performed an independent interpretation of an: EKG (Normal sinus rhythm with a rate of [address] segment changes. QTC normal at 441) Discharge Plan Discharge Clinical Impression: Altered mental status, Delirium Patient Disposition: Still a Patient Prescriptions: No Action atorvastatin 20 mg tablet 20 mg PO DAILY Qty: 90 2RF cholecalciferol (vitamin D3) 25 mcg (1,000 unit) capsule 25 mcg PO DAILY Qty: 90 3RF calcium carbonate 500 mg calcium (1,250 mg) tablet 500 mg PO DAILY 90 Days Qty: 90 3RF docusate sodium [Colace] 100 mg capsule 100 mg PO DAILY Qty: 90 3RF (DME) FreeStyle Lite Strips Strip See Rx Instructions .ROUTE .COMPLEX Qty: 50 11RF Dose Instruction: USE TO TEST FINGER STICK BLOOD SUGAR ONCE DAILY Rx Instructions: USE TO TEST FINGER STICK BLOOD SUGAR ONCE DAILY alcohol swabs [Alcohol Pads] Pads, Medicated See Rx Instructions topical DIRECTED Qty: 100 11RF Rx Instructions: once daily topical as directed; (DME) lancets [FreeStyle Lancets] 28 gauge misc See Rx Instructions .ROUTE .COMPLEX Qty: 100 11RF Dose Instruction: USE TO TEST FINGER STICK BLOOD SUGAR ONCE DAILY Rx Instructions: USE TO TEST FINGER STICK BLOOD SUGAR ONCE DAILY omeprazole 20 mg capsule,delayed release(DR/EC) 20 mg PO DAILY 90 Days Qty: 90 2RF valsartan-hydrochlorothiazide 80-12.5 mg tablet 1 tab PO DAILY olanzapine 5 mg tablet,disintegrating 5 mg PO DAILY olanzapine 20 mg tablet,disintegrating 15 mg PO BEDTIME divalproex 250 mg tablet,delayed release (DR/EC) 250 mg PO DAILY latanoprost (PF) 0.005 % drops 1 drp ophthalmic (eye) QPM nifedipine 60 mg tablet extended release 60 mg PO DAILY brimonidine 0.2 % drops 1 drp ophthalmic (eye) TID Rx Instructions: administer approximately 8 hours apart (DME) blood-glucose meter [FreeStyle Lite Meter] Kit See Rx Instructions .ROUTE .MEDSUPPLY Qty: 1 0RF Rx Instructions: As directed meloxicam 7.5 mg tablet 7.5 mg PO DAILY Qty: 20 0RF
[2023-10-01 17:28] LABS: Alanine Aminotransferase 22 U/L (0-31); Albumin Level 4.3 g/dL (3.5-5.0); Alkaline Phosphatase 81 U/L (39-117); Anion Gap 16 (12-20); Aspartate Amino Transferase 36 U/L (5-31); Blood Urea Nitrogen 13 mg/dL (9-16); Calcium 9.8 mg/dL (8.4-10.2); Carbon Dioxide 23 mmol/L (22-29); Chloride 107 mmol/L (96-108); Creatinine Clr Calc Pharmacy 58.7; Estimated Glomerular Filt Rate 59; Ethanol < 10 mg/dL; Glucose Random 103 mg/dL (60-115); Potassium 3.7 mmol/L (3.3-5.1); Sodium 142 mmol/L (135-145); Total Protein 7.2 g/dL (6.5-8.0)
[2023-10-01 18:19] LABS: Acetaminophen LAB < 3 mcg/mL (<30); Salicylate < 5.0 mg/dL (15-30)
[2023-10-01 18:21] LABS: COVID-19 Test Negative (Negative); IDNOW Serial# 9DB6401D
--- NOTE | 2023-10-01 22:46 | PC.NURSE ---
Pt has been ambulating independently. Sheets were changed per pt request. Pt got bakc into bed and laid down, blankets given. Pt is requesting something for pain
--- NOTE | 2023-10-01 23:05 | PC.NURSE ---
When I went to medicate pt with tylenol, pt reported she didn't want any pain medicine and isn't in pain. I tried to talk to pt about CT scan, explained what happens and how long it would take. Pt still refusing to get scan done.
[2023-10-01 23:08] VITALS: PULSE 83; RESP 14; O2SAT 97
[2023-10-02] MEDS: cefuroxime axetiL 250 MG TABLET PO ×3 (00:15→21:24)
--- NOTE | 2023-10-02 00:19 | PC.NURSE ---
Attempted to get pt in the CT machine. Pt was nervous that the test was going to hurt her. I explained that it would not hurt and will only take a minute. Pt said she did not want to do it and would not listen when we tried to rationalize with pt. Pt went back to her room and laid down. Sitter at the bedside.
--- NOTE | 2023-10-02 01:22 | PC.NURSE ---
Pt has been walking with siter, she does not want to be in her room. A recliner was placed in the hallway and pt is sitting in recliner eating a snack. Pt has become very somber.
[2023-10-02] MEDS: OLANZapine ODT 10 MG TAB.RAPDIS TRANSLINGU ×2 (01:39→08:09)
--- NOTE | 2023-10-02 01:42 | PC.NURSE ---
Pt medicated per MAR. Pt currently sitting in recliner with sitter
--- NOTE | 2023-10-02 06:05 | PC.NURSE ---
Pt has been ambulating independently throughout the night with sitter, tech, exchange operator at her side. Pt wanted to sit in the recliner but when she went to do so, the wheels were not locked and the chair slid out from underneath her. Pt fell to the floor. No headstrike, no loss of consciousness, no injuries. Pt was assisted back into the chair with the wheels locked and is now sitting comfortably with sitter at the bedside. applications manager Jasmin and JAZZY Coy aware.
[2023-10-02 06:33] VITALS: RESP 18
--- NOTE | 2023-10-02 08:48 | MHC.CARE ---
Patient is not in a SNF, she lives alone in [facility]. Patient is [facility] / [facility] involved, sees Dr Elmore in the community for psychiatry. She is on a [facility] Order. Per Meena Castellanos with [facility], , patient has been heard self dialoguing, thinks someone is breaking into her apartment, disrobing and walking around in a bra in the hallway, yelling and screaming throughout the evening into the night. Police have been to the apartment. She has packed all her things and stated she was going to leave. She reportedly smashed a glass bowl and had been walking around on the shards until [facility] came and they cleaned it up. They suspect she is not medication compliant due to [facility] nurses having heard her throwing up right after medication administration. T/w attempted to meet with her, however she is not engaging in any questions asked and roaming around the ED. [facility] assessed her yesterday morning at the apartment and patient was able to calm down.
--- NOTE | 2023-10-02 08:53 | PHA.MEDREC ---
Pharmacy Consult ? Medication Reconciliation Pharmacy has completed the medication reconciliation, list sent from SNF.
--- NOTE | 2023-10-02 10:45 | PC.NURSE ---
patient has remained calm and cooperative since coming over to pod, patient has sitter 1:1. patient ambulates with steady gait. appears to be sad, does not want to engage in conversation with RN.
--- NOTE | 2023-10-02 12:12 | PC.NURSE ---
patient moved into 1 for comfort, patient appears to be asleep, respirations equal and unlabored has sitter 1:1 at bedside
[2023-10-02 13:39] VITALS: BP 196/116; PULSE 104; RESP 18; TEMP 36.4; O2SAT 97
[2023-10-02] MEDS: Valsartan 40 MG TABLET PO (14:09)
[2023-10-02 16:00] VITALS: BP 181/99; PULSE 104; RESP 20; TEMP 36.2; O2SAT 98; BMI 30.8
--- NOTE | 2023-10-02 17:52 | PC.ADMIT ---
Addendum entered and electronically signed by Sharon Monte RN 10/02/23 19:30: Pt difficult to understand, speech garbled with possible accent. Pt has hx fall while in ED pod, Slid from recliner chair to floor. High risk for falls due to hx fall, disorganization and impulsivity. Red socks provided and is currently holding them in her hand, fall risk band applied to wrist. Pt becomes irritated with 1:1 observation and PSA. Grabbed and pushed PSA this shift. Intrusive behaviors due to disorganization. Wanders/paces in phipps. Does not accept redirection well. Clonidine 0.1 mg given at 1859. Spit pill back out initially and then accepted pill. VS at 192 97.2-108-20 168/89 O2 sat 98% rm air; Dr Man informed. Original Note: This 73 y.o. female was referred by [facility] Care Team for Dx of Schizophrenia by history. Arrived on unit along with patient chief safety officer(PSA). Placed on 1:1 observation due to disorganization. Section 12b status. Pt has [facility], Jack order and Guardian. 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 Precipitating factors to admission: Brought in by ambulance on Section 12A due to erratic behavior in her apartment complex. Behaviors included: yelling and screaming into the night, wandering the phipps of her floor without a top on-only a bra, smashing glass bowls. Non-compliant with meds. Pt unable to participate during admission assessment due to mental status/disorganization. Able to respond to some questions, but accuracy of responses questionable. Looked through booklet provided upon admission back and forth, right side up and upside down while admission attempted. Refused to sit down, left room, returned with much encouragement and left again. Difficult to direct/redirect. Unable to fully assess for orientation. Does not always respond to name. Assessment completed with use of crisis evaluation. Unable to respond re: substances use. CHENG negative. Medical issues ED : Dx UTI in ED, Ceftin prescribed, HTN. List of medical issues: Type 2 diabetes with hyperglycemia, GERD, Glaucoma, Hyperlipidemia, Schatzki's ring, Hx Cataract Surgery, Hx hysterectomy. Difficulty responding to questions re: SI/HI, AH/VH due to mental status. Nurse to nurse done with ED nurse prior to admission. VS in ED at at 1340 196/116 P 104. Valsartan 40mg po given at 1410 in ED. VS upon admission to unit 181/ P104 temp 97.1 resp 20 O2 sat 98% rm air. Dr Man notified of VS. Clonidine 0.1 mg ordered.
[2023-10-02] MEDS: cloNIDine HCL 0.1 MG TABLET PO (18:59)
[2023-10-02 19:28] VITALS: BP 168/89; PULSE 108; RESP 20; TEMP 36.2; O2SAT 98
--- NOTE | 2023-10-02 20:22 | PC.NURSE ---
Pt refused lab draw to check depakote level.
[2023-10-02] MEDS: Divalproex Sodium 250 MG TABLET.DR PO (21:24)
[2023-10-02] MEDS: OLANZapine 7.5 MG TABLET 15 MG PO (21:24)
[2023-10-02] MEDS: Brimonidine Tartrate 0.2% Oph 5 ML BOTTLE 1 DROP EYE-BOTH (21:32)
[2023-10-02] MEDS: Latanoprost 0.005 % Ophth Sol 2.5 ML DROPS 1 DROP EYE-BOTH (21:32)
[2023-10-02 22:57] LABS: Glucose, Whole Blood 114 mg/dL (60-115)
[2023-10-03 06:00] VITALS: RESP 16
[2023-10-03] MEDS: cefuroxime axetiL 250 MG TABLET PO ×2 (09:41→21:59)
[2023-10-03] MEDS: Omeprazole 20 MG CAPSULE.DR PO (09:41)
--- NOTE | 2023-10-03 13:11 | HO.PSYADMNOT ---
HPI Date of Service: 10/03/23 Chief Complaint: Delirium HPI Narrative: BIBA due to concerning behaviors at her apartment building, such as yelling in the night, wandering the halls wearing only a bra for a top, smashing glass bowls, picking up the shards. it is unclear if she has been compliant with medication recently. she was unable to fully participate in CARE team eval due to her impaired mental status. per collateral obtained by CARE team, pt is significantly off of her baseline, as she normally is able to live independently with supports. on interview with MD, pt is sleeping but rousable. cogent communication is fraught, but MD does manage to understand that pt reports an improved mood and denies any safety concerns. psychotic Sx are unclear. pt is generally rambling, tangential, possibly delusional. she is able to remain focused for only the briefest periods to answer concrete questions. he substantial mental status change in the setting of UTI is supportive of delirium, but she has possibly also not been taking her psych medications consistently. pt is grossly not oriented and is considered a very poor historian. Past Psychiatric History: [facility] client, kev's order and guardian. Schizoaffective D/O Dx per [facility] hosps: [facility] 1988, [facility] [place], [facility] [place]. outpt: [facility] Medical Evaluation Reviewed: Yes [facility] Medical History Bipolar 1 disorder GERD (gastroesophageal reflux disease) Glaucoma Hyperlipidemia Schatzki's ring Narrative: DM obesity Surgical History History of cataract surgery History of section History of total abdominal hysterectomy Family History: unknown Social History: lives in her own apartment. 2 adult children. born in [place]. moved to [place] in 1997. Substance History: tox NEG, none reported Trauma History: unknown Diagnostics Vital Signs (24Hr): Vital Signs - 24 hr 10/02/23 13:39 10/02/23 16:00 10/02/23 19:28 Temperature 97.5 F 97.1 F 97.2 F Pulse Rate 104 H 104 H 108 H Respiratory Rate 18 20 20 Blood Pressure 196/116 H 181/99 H 168/89 H Pulse Oximetry 97 98 98 Oxygen Delivery Method Room Air Room Air Room Air 10/03/23 06:00 Temperature Pulse Rate Respiratory Rate 16 Blood Pressure Pulse Oximetry Oxygen Delivery Method BMI result Body Mass Index 30.8 Labs 10/01/23 17:07 10/01/23 17:08 Labs: Laboratory Results - last 48 hr 10/01/23 10/01/23 10/01/23 16:52 16:53 17:07 WBC 8.5 RBC 4.61 Hgb 14.1 Hct 41.6 MCV 90.2 MCH 30.6 MCHC 33.9 RDW 13.1 Plt Count 154 L MPV 9.9 Immature Gran % (Auto) 0.2 Neut % (Auto) 44.9 L Lymph % (Auto) 44.2 H Miller % (Auto) 7.4 Eos % (Auto) 2.7 Baso % (Auto) 0.6 Lymph # (Auto) 3.7 Miller # (Auto) 0.6 Eos # (Auto) 0.2 Baso # (Auto) 0.1 Abs Immat Gran (auto) 0.02 Absolute Neuts (auto) 3.8 Absolute Nucleated RBC 0.000 Nucleated RBC % (auto) 0.0 Sodium Potassium Chloride Carbon Dioxide Anion Gap BUN Creatinine Estim Creat Clear Calc Estimated GFR POC Glucose Random Glucose Calcium Total Bilirubin AST ALT Alkaline Phosphatase Total Protein Albumin Urine Color Yellow Urine Appearance Clear Urine pH 5.5 Ur Specific [place] 1.010 Urine Protein Negative Urine Glucose (UA) Negative Urine Ketones Negative Urine Blood Negative Urine Nitrite Positive H Ur Leukocyte Esterase Negative Urine RBC 0-2 Urine WBC 0-5 Ur Squamous Epith Cells 3-5 Urine Bacteria 1+ Hyaline Casts 0-2 Urine Yeast Present Salicylates < 5.0 L Urine Opiates Screen Not Detected Urine Fentanyl Screen Not Detected Acetaminophen < 3 Ur Barbiturates Screen Not Detected Ur Phencyclidine Scrn Not Detected Ur Amphetamines Screen Not Detected U Benzodiazepines Scrn Not Detected Urine Cocaine Screen Not Detected U Marijuana (THC) Screen Not Detected Ethyl Alcohol COVID-19 (MANINE) COVID-19 Clin Com 10/01/23 10/01/23 10/02/23 17:08 17:50 22:47 WBC RBC Hgb Hct MCV MCH MCHC RDW Plt Count MPV Immature Gran % (Auto) Neut % (Auto) Lymph % (Auto) Miller % (Auto) Eos % (Auto) Baso % (Auto) Lymph # (Auto) Miller # (Auto) Eos # (Auto) Baso # (Auto) Abs Immat Gran (auto) Absolute Neuts (auto) Absolute Nucleated RBC Nucleated RBC % (auto) Sodium 142 Potassium 3.7 Chloride 107 Carbon Dioxide 23 Anion Gap 16 BUN 13 Creatinine 0.93 Estim Creat Clear Calc 58.7 Estimated GFR 59 POC Glucose 114 Random Glucose 103 Calcium 9.8 Total Bilirubin 1.0 AST 36 H ALT 22 Alkaline Phosphatase 81 Total Protein 7.2 Albumin 4.3 Urine Color Urine Appearance Urine pH Ur Specific [place] Urine Protein Urine Glucose (UA) Urine Ketones Urine Blood Urine Nitrite Ur Leukocyte Esterase Urine RBC Urine WBC Ur Squamous Epith Cells Urine Bacteria Hyaline Casts Urine Yeast Salicylates Urine Opiates Screen Urine Fentanyl Screen Acetaminophen Ur Barbiturates Screen Ur Phencyclidine Scrn Ur Amphetamines Screen U Benzodiazepines Scrn Urine Cocaine Screen U Marijuana (THC) Screen Ethyl Alcohol < 10 COVID-19 (MANNIE) Negative COVID-19 Clin Com See Note Meds/Allergies Meds Home Medications Medication Instructions Recorded Confirmed Type divalproex 250 mg tablet,delayed 250 mg PO BEDTIME 07/09/20 10/02/23 History release latanoprost (PF) 0.005 % eye drops 1 drp ophthalmic (eye) BEDTIME 11/24/20 10/02/23 History brimonidine 0.2 % eye drops 1 drp ophthalmic (eye) BID 06/01/22 10/02/23 History nifedipine 60 mg tablet,extended 60 mg PO DAILY 06/01/22 10/02/23 History release atorvastatin 80 mg tablet 80 mg PO DAILY 10/02/23 10/02/23 History docusate sodium 100 mg capsule 100 mg PO DAILY PRN Constipation 10/02/23 10/02/23 History (Colace) olanzapine 15 mg disintegrating 15 mg PO BEDTIME 10/02/23 10/02/23 History tablet omeprazole 20 mg capsule,delayed 20 mg PO DAILY@0630 10/02/23 10/02/23 History release simethicone 80 mg chewable tablet 80 mg PO DAILY PRN Dyspepsia 10/02/23 10/02/23 History valsartan 80 mg tablet 80 mg PO DAILY 10/02/23 10/02/23 History Allergies Allergies Allergy/AdvReac Type Severity Reaction Status Date / Time blueberry [Blueberry] Allergy Severe SWELLING Verified 10/01/23 16:40 lisinopril Allergy Intermediate cough Verified 10/01/23 16:40 mushroom Allergy Intermediate SWELLING Verified 10/01/23 16:40 shellfish derived Allergy Unknown UNKNOWN Verified 10/01/23 16:40 [SHELLFISH DERIVED] thioridazine Allergy Unknown Unknown Verified 10/01/23 16:40 tomato [TOMATO] Allergy Unknown UNKNOWN Verified 10/01/23 16:40 CHOCOLATE Allergy Intermediate ITCHING Uncoded 01/25/23 10:42 From MELLARIL Allergy Intermediate SHORTNESS Uncoded 01/25/23 10:42 OF BREATH From THORAZINE Allergy Intermediate SHORTNESS Uncoded 01/25/23 10:42 OF BREATH Mental Status Exam Mental Status Exam Narrative: lying asleep in bed, rousable to loud voice. calm and cooperative. adequate hygiene, dressed in street clothes. speech incr rate and amount. decr loudness. dysarthric/mumbled. decr latency. thoughts tangential, content detail unclear, possible delusional. affect constricted, normo-intense, non-labile. mood much better. denies SI/SIBI/HI. re AVH, equivocal response. Assessment & Plan Assessment & Plan (1) Delirium: Status: Acute Code(s): R41.0 - Disorientation, unspecified (2) Schizophrenia: Status: Acute Qualifiers: Schizophrenia type: undifferentiated schizophrenia Qualified Code(s): F20.3 - Undifferentiated schizophrenia Code(s): F20.9 - Schizophrenia, unspecified Assessment and Plan: versus schizoaffective disorder Plan delirium - appears most likely related to UTI. continue course of antibx for UTI, follow delirium for improvement psychotic D/O schizophrenia V Schizoaffective D/O. unclear if pt had been compliant with medication in recent days, and how much of pt's presentation can be accounted for by psychotic Sx rather than delirium. restart/continue outpt psych regimen and follow for improvement in MS. Patient educated on: medication risk/benefits and medical condition Reason for continued inpatient stay Substantial Risk for: inability to function and rapid decompensation Statement Statement: I have reviewed the history and physical and performed a pertinent examination on my patient. No changes have occurred unless specified. If the History and Physical was not performed prior to admission, the Hospitalist's service will be consulted for completing the admission physical. Time Spent With Patient Time: Total time managing care of this patient today ____ minutes.
[2023-10-03 21:25] VITALS: RESP 16
[2023-10-03] MEDS: traZODone HCL 50 MG TABLET PO (21:59)
[2023-10-03] MEDS: Divalproex Sodium 250 MG TABLET.DR PO (21:59)
[2023-10-03] MEDS: OLANZapine 7.5 MG TABLET 15 MG PO (21:59)
[2023-10-03] MEDS: hydrOXYzine HCL 25 MG TABLET PO (21:59)
[2023-10-03] MEDS: Latanoprost 0.005 % Ophth Sol 2.5 ML DROPS 1 DROP EYE-BOTH (22:06)
[2023-10-03] MEDS: Brimonidine Tartrate 0.2% Oph 5 ML BOTTLE 1 DROP EYE-BOTH (22:06)
[2023-10-04 06:00] VITALS: RESP 16
[2023-10-04] MEDS: Atorvastatin Calcium 80 MG TABLET PO (08:07)
[2023-10-04] MEDS: cefuroxime axetiL 250 MG TABLET PO ×2 (08:08→20:18)
[2023-10-04] MEDS: Brimonidine Tartrate 0.2% Oph 5 ML BOTTLE 1 DROP EYE-BOTH ×2 (08:08→20:23)
[2023-10-04] MEDS: Omeprazole 20 MG CAPSULE.DR PO (08:08)
--- NOTE | 2023-10-04 08:36 | HO.PSYCHPN ---
Subjective Subjective Date of Service: 10/04/23 Reason For Visit: Delirium Interim History: Met with patient; discussed with team Patient difficult with which to engage, mostly sitting in the chair with her eyes closed and mumbling in audible answers as program writer asks questions. Patient would sometimes answer questions but other times seem to go back to sleep. She is however able to say her name, ERROL. Regarding where she is she says she knows she is in [place] but then says that she has on a ship. Business Machine Operator explains that she is in a hospital. Patient has been refusing vitals Patient's outreach team explain that at baseline she has tardive dyskinesia; she says that she is off her baseline which they think is due to UTI. Even at baseline however they say she has poor self-care. Zyprexa/Zydis 20mg qhs; COURT ordered (on [email or web address] [facility]); give IM if refuses PO Mental Status Exam Mental Status Exam Narrative: Sitting in chair on one-to-one; in and out of sleep;, arousable to loud voice. calm but not always cooperative, refusing vitals. adequate hygiene, dressed in street clothes. speech mumbled and hard to understand; decr loudness. dysarthric/mumbled. decr latency. thoughts tangential, content detail unclear, possible delusional. affect constricted, normo-intense, non-labile. mood not assessed; no SI/HI expressed; appears internally preoccupied; judgment/insight impaired Diagnostics Vital Signs (24Hr): Vital Signs - 24 hr 10/03/23 21:25 10/04/23 06:00 Respiratory Rate 16 16 BMI result Body Mass Index 30.8 Labs 10/01/23 17:07 10/01/23 17:08 Labs: Laboratory Results - last 48 hr 10/02/23 22:47 POC Glucose 114 Medications Medications Current Medications Acetaminophen (Acetaminophen 325 Mg Tablet) 650 mg PO Q6H PRN PRN Reason: Headache/Pain Mild Scale (1-3) Al Hydroxide/Mg Hydroxide (Magnesium Hydrox/Alum Hydrox 30 Ml Oral.Susp) 30 ml PO Q6H PRN PRN Reason: Heartburn/Nausea Atorvastatin Calcium (Atorvastatin Calcium 80 Mg Tablet) 80 mg PO DAILY EDIN Last Admin: 10/04/23 08:07 Dose: 80 mg Brimonidine Tartrate (Brimonidine Tartrate 0.2% Oph 5 Ml Bottle) 1 drop EYE-BOTH BID [facility] Last Admin: 10/04/23 08:08 Dose: 1 drop Cefuroxime Axetil (Cefuroxime Axetil 250 Mg Tablet) 250 mg PO BID [facility] Stop: 10/06/23 09:01 Last Admin: 10/04/23 08:08 Dose: 250 mg Clonidine HCl (Clonidine Hcl 0.1 Mg Tablet) 0.1 mg PO Q4H PRN; Protocol PRN Reason: SBP>160 or DBP>100 Divalproex Sodium (Divalproex Sodium 250 Mg Tablet.) 250 mg PO BEDTIME [facility] Last Admin: 10/03/23 21:59 Dose: 250 mg Docusate Sodium (Docusate Sodium 100 Mg Capsule) 100 mg PO DAILY PRN PRN Reason: Constipation Hydroxyzine HCl (Hydroxyzine Hcl 25 Mg Tablet) 25 mg PO Q6H PRN PRN Reason: Anxiety Last Admin: 10/03/23 21:59 Dose: 25 mg Latanoprost (Latanoprost 0.005 % Ophth Catie 2.5 Ml Drops) 1 drop EYE-BOTH BEDTIME [facility] Last Admin: 10/03/23 22:06 Dose: 1 drop Magnesium Hydroxide (Milk Of Magnesia 30 Ml Oral.Susp) 30 ml PO DAILY PRN PRN Reason: Constipation Nicotine Polacrilex (Nicotine Polacrilex 2 Mg Gum) 4 mg BUCCAL Q2H PRN PRN Reason: Nicotine Cravings Nifedipine (Nifedipine Er 60 Mg Tab.Er.24) 60 mg PO DAILY [facility] Last Admin: 10/04/23 08:13 Dose: Not Given Olanzapine (Olanzapine 7.5 Mg Tablet) 15 mg PO BEDTIME [facility] Last Admin: 10/03/23 21:59 Dose: 15 mg Omeprazole (Omeprazole 20 Mg Capsule.) 20 mg PO DAILY@0630 [facility] Last Admin: 10/04/23 08:08 Dose: 20 mg Simethicone (Simethicone 80 Mg Tab.Chew) 80 mg PO DAILY PRN PRN Reason: Dyspepsia Trazodone HCl (Trazodone Hcl 50 Mg Tablet) 50 mg PO BEDTIME MRX1 PRN PRN Reason: Insomnia Last Admin: 10/03/23 21:59 Dose: 50 mg Valsartan (Valsartan 80 Mg Tablet) 80 mg PO DAILY [facility]; Protocol Last Admin: 10/04/23 08:18 Dose: Not Given Allergies Allergies Allergy/AdvReac Type Severity Reaction Status Date / Time blueberry [Blueberry] Allergy Severe SWELLING Verified 10/01/23 16:40 lisinopril Allergy Intermediate cough Verified 10/01/23 16:40 mushroom Allergy Intermediate SWELLING Verified 10/01/23 16:40 shellfish derived Allergy Unknown UNKNOWN Verified 10/01/23 16:40 [SHELLFISH DERIVED] thioridazine Allergy Unknown Unknown Verified 10/01/23 16:40 tomato [TOMATO] Allergy Unknown UNKNOWN Verified 10/01/23 16:40 CHOCOLATE Allergy Intermediate ITCHING Uncoded 01/25/23 10:42 From MELLARIL Allergy Intermediate SHORTNESS Uncoded 01/25/23 10:42 OF BREATH From THORAZINE Allergy Intermediate SHORTNESS Uncoded 01/25/23 10:42 OF BREATH Assessment & Plan Assessment & Plan (1) Delirium: Status: Acute Code(s): R41.0 - Disorientation, unspecified (2) Schizophrenia: Qualifiers: Schizophrenia type: undifferentiated schizophrenia Qualified Code(s): F20.3 - Undifferentiated schizophrenia Status: Acute Code(s): F20.9 - Schizophrenia, unspecified Assessment and Plan: versus schizoaffective disorder Plan Patient is a 73-year-old female with history of psychotic illness, on a [email or web address] who presents with agitated behaviors in the community, likely due to delirium - related to UTI. continue course of antibx for UTI, follow delirium for improvement psychotic D/O schizophrenia V Schizoaffective D/O. unclear if pt had been compliant with medication in recent days, and how much of pt's presentation can be accounted for by psychotic Sx rather than delirium. restart/continue outpt psych regimen and follow for improvement in MS. Hospital course: 10/04 Patient remains with delirium secondary to UTI Patient difficult with which to engage, mostly sitting in the chair with her eyes closed and mumbling in audible answers as program writer asks questions. Patient would sometimes answer questions but other times seem to go back to sleep. She is however able to say her name, . Regarding where she is she says she knows she is in [place] but then says that she has on a ship. Business Machine Operator explains that she is in a hospital. Patient has been refusing vitals Patient's outreach team explain that at baseline she has tardive dyskinesia; she says that she is off her baseline which they think is due to UTI. Even at baseline however they say she has poor self-care. PLAN: q15 min continue Cefuroxime Axetil 250 mg PO BID EDIN -Increased to Zyprexa/Zydis 20mg qhs; give IM if refuses PO (Court ordered and on [facility] [place] [place]) -Zyprexa IM 20mg PRN if refuses PO/SL Zyprexa/Zydis (per court order) Patient educated on: diagnosis and medical condition Informed Consent: does not understand Reason for continued inpatient stay Substantial Risk for: inability to function Time Spent With Patient Time: Total time managing care of this patient today ____ minutes.
[2023-10-04] MEDS: OLANZapine ODT 10 MG TAB.RAPDIS 20 MG TRANSLINGU (20:18)
[2023-10-04] MEDS: Divalproex Sodium 250 MG TABLET.DR PO (20:18)
[2023-10-04] MEDS: Latanoprost 0.005 % Ophth Sol 2.5 ML DROPS 1 DROP EYE-BOTH (20:23)
[2023-10-04 20:25] VITALS: BP 186/96; PULSE 110; RESP 14; TEMP 36.9; O2SAT 96
[2023-10-05 06:11] VITALS: BP 135/71; PULSE 88; RESP 16; TEMP 37.1; O2SAT 96
[2023-10-05] MEDS: Acetaminophen 325 MG TABLET 650 MG PO (06:14)
[2023-10-05] MEDS: Omeprazole 20 MG CAPSULE.DR PO (06:16)
[2023-10-05] MEDS: Brimonidine Tartrate 0.2% Oph 5 ML BOTTLE 1 DROP EYE-BOTH ×2 (09:36→21:36)
--- NOTE | 2023-10-05 10:28 | P.PNPSI_ITS ---
Subjective Subjective Date of Service: 10/05/23 Reason For Visit: Delirium Subjective Notes: Section 12B Medical Problems Affecting Mental Status: Yes (UTI) Interim History: Had one incident of urinary incontinence. Slept OK but was agitated when she woke up during the night, stating that she wanted to go home. Noted to snore when lying on her back. Eating OK but requiring assistance. Got all meds in last couple of days except Valsartan yesterday. BP within normal range this morning. Side effects from medications: No Review of Systems Acute medical concerns: Yes UTI, hypertension Medical Review of Systems: unchanged Mental Status Exam Mental Status Exam Patient Appearance: Well Grooomed Patient Orientation: Person Level of Consciousness: Awake Patient Behavior: Isolative Mood Description: Withdrawn Affect Description: Blunted Patient Cognition Impaired: Yes Ability to Follow Directions: Fair Speech Pattern: Poor Articulation Memory Description: Recent Impaired Hallucinations: Auditory Delusions: Paranoid Ideation Thought Process: Linear Thought Content: positive for Poverty of Content Judgement: Fair Diagnostics Vital Signs (24Hr): Vital Signs - 24 hr 10/04/23 20:25 10/05/23 06:11 Temperature 98.5 F 98.8 F Pulse Rate 110 H 88 Respiratory Rate 14 16 Blood Pressure 186/96 H 135/71 Pulse Oximetry 96 96 Oxygen Delivery Method Room Air Room Air BMI result Body Mass Index 30.8 Labs 10/01/23 17:07 10/01/23 17:08 Medications Medications Current Medications Acetaminophen (Acetaminophen 325 Mg Tablet) 650 mg PO Q6H PRN PRN Reason: Headache/Pain Mild Scale (1-3) Last Admin: 10/05/23 06:14 Dose: 650 mg Al Hydroxide/Mg Hydroxide (Magnesium Hydrox/Alum Hydrox 30 Ml Oral.Susp) 30 ml PO Q6H PRN PRN Reason: Heartburn/Nausea Atorvastatin Calcium (Atorvastatin Calcium 80 Mg Tablet) 80 mg PO DAILY [facility] Last Admin: 10/05/23 09:37 Dose: 80 mg Brimonidine Tartrate (Brimonidine Tartrate 0.2% Oph 5 Ml Bottle) 1 drop EYE- BOTH BID [facility] Last Admin: 10/05/23 09:36 Dose: 1 drop Cefuroxime Axetil (Cefuroxime Axetil 250 Mg Tablet) 250 mg PO BID [facility] Stop: 10/06/23 09:01 Last Admin: 10/05/23 09:36 Dose: 250 mg Clonidine HCl (Clonidine Hcl 0.1 Mg Tablet) 0.1 mg PO Q4H PRN; Protocol PRN Reason: SBP>160 or DBP>100 Divalproex Sodium (Divalproex Sodium 250 Mg Tablet.Dr) 250 mg PO BEDTIME [facility] Last Admin: 10/04/23 20:18 Dose: 250 mg Docusate Sodium (Docusate Sodium 100 Mg Capsule) 100 mg PO DAILY PRN PRN Reason: Constipation Latanoprost (Latanoprost 0.005 % Ophth Catie 2.5 Ml Drops) 1 drop EYE-BOTH BEDTIME [facility] Last Admin: 10/04/23 20:23 Dose: 1 drop Magnesium Hydroxide (Milk Of Magnesia 30 Ml Oral.Susp) 30 ml PO DAILY PRN PRN Reason: Constipation Nicotine Polacrilex (Nicotine Polacrilex 2 Mg Gum) 4 mg BUCCAL Q2H PRN PRN Reason: Nicotine Cravings Nifedipine (Nifedipine Er 60 Mg Tab.Er.24) 60 mg PO DAILY [facility] Last Admin: 10/05/23 09:37 Dose: 60 mg Olanzapine (Olanzapine Odt 10 Mg Tab.Rapdis) 20 mg TRANSLINGU BEDTIME [facility] Last Admin: 10/04/23 20:18 Dose: 20 mg Olanzapine (Olanzapine 10 Mg Vial) 20 mg IM BEDTIME PRN PRN Reason: if refuses PO Zydis Omeprazole (Omeprazole 20 Mg Capsule.Dr) 20 mg PO DAILY@0630 [facility] Last Admin: 10/05/23 06:16 Dose: 20 mg Simethicone (Simethicone 80 Mg Tab.Chew) 80 mg PO DAILY PRN PRN Reason: Dyspepsia Trazodone HCl (Trazodone Hcl 50 Mg Tablet) 50 mg PO BEDTIME PRN PRN Reason: Insomnia Valsartan (Valsartan 80 Mg Tablet) 80 mg PO DAILY [facility]; Protocol Last Admin: 10/05/23 09:37 Dose: 80 mg Allergies Allergies Allergy/AdvReac Type Severity Reaction Status Date / Time blueberry [Blueberry] Allergy Severe SWELLING Verified 10/01/23 16:40 lisinopril Allergy Intermediate cough Verified 10/01/23 16:40 mushroom Allergy Intermediate SWELLING Verified 10/01/23 16:40 shellfish derived Allergy Unknown UNKNOWN Verified 10/01/23 16:40 [SHELLFISH DERIVED] thioridazine Allergy Unknown Unknown Verified 10/01/23 16:40 tomato [TOMATO] Allergy Unknown UNKNOWN Verified 10/01/23 16:40 CHOCOLATE Allergy Intermediate ITCHING Uncoded 01/25/23 10:42 From MELLARIL Allergy Intermediate SHORTNESS Uncoded 01/25/23 10:42 OF BREATH From THORAZINE Allergy Intermediate SHORTNESS Uncoded 01/25/23 10:42 OF BREATH Assessment & Plan Assessment & Plan (1) Delirium: Status: Acute Code(s): R41.0 - Disorientation, unspecified Assessment and Plan: probably delirium from UTI superimposed on dementia. Continue to treat UTI (2) Schizophrenia: Qualifiers: Schizophrenia type: undifferentiated schizophrenia Qualified Code(s): F 20.3 - Undifferentiated schizophrenia Status: Acute Code(s): F20.9 - Schizophrenia, unspecified Assessment and Plan: versus schizoaffective disorder. Continue current meds Plan Patient is a 73-year-old female with history of psychotic illness, on a [facility] who presents with agitated behaviors in the community, likely due to delirium - related to UTI. continue course of antibx for UTI, follow delirium for improvement psychotic D/O schizophrenia V Schizoaffective D/O. unclear if pt had been compliant with medication in recent days, and how much of pt's presentation can be accounted for by psychotic Sx rather than delirium. restart/continue outpt psych regimen and follow for improvement in MS. Hospital course: 10/04 Patient remains with delirium secondary to UTI Patient difficult with which to engage, mostly sitting in the chair with her eyes closed and mumbling in audible answers as television writer asks questions. Patient would sometimes answer questions but other times seem to go back to sleep. She is however able to say her name, . Regarding where she is she says she knows she is in [place] but then says that she has on a ship. Window Trimmer explains that she is in a hospital. Patient has been refusing vitals Patient's outreach team explain that at baseline she has tardive dyskinesia; she says that she is off her baseline which they think is due to UTI. Even at baseline however they say she has poor self-care. PLAN: q15 min continue Cefuroxime Axetil 250 mg PO BID [facility] -Increased to Zyprexa/Zydis 20mg qhs; give IM if refuses PO (Court ordered and on [facility]) -Zyprexa IM 20mg PRN if refuses PO/SL Zyprexa/Zydis (per court order) Reason for continued inpatient stay Substantial Risk for: inability to function Time Spent With Patient Time: Total time managing care of this patient today ____ minutes.
[2023-10-05] MEDS: OLANZapine ODT 10 MG TAB.RAPDIS 20 MG TRANSLINGU (21:35)
[2023-10-05] MEDS: Divalproex Sodium 250 MG TABLET.DR PO (21:35)
[2023-10-05] MEDS: cefuroxime axetiL 250 MG TABLET PO (21:35)
[2023-10-05] MEDS: Latanoprost 0.005 % Ophth Sol 2.5 ML DROPS 1 DROP EYE-BOTH (21:36)
[2023-10-05 21:46] VITALS: BP 137/78; PULSE 88; RESP 16; TEMP 36.4; O2SAT 95
--- NOTE | 2023-10-06 08:13 | P.PNPSI_ITS ---
Subjective Subjective Date of Service: 10/06/23 Reason For Visit: Delirium Subjective Notes: Section 12B Interim History: Patient was seen and discussed in rounds today. Records and plans were reviewed. She continues to be disorganized. No depression or anxiety. ADLs are improved. Affect is flat. She is medication compliant. Her 12 be expires tomorrow. No changes were made today Review of Systems Review of Systems Yes all other systems are reviewed and are negative Mental Status Exam Mental Status Exam Patient Appearance: Well Grooomed Patient Orientation: Person Level of Consciousness: Awake Patient Behavior: Isolative Mood Description: Withdrawn Affect Description: Blunted Patient Cognition Impaired: Yes Ability to Follow Directions: Fair Speech Pattern: Poor Articulation Memory Description: Recent Impaired Hallucinations: Auditory Delusions: Paranoid Ideation Thought Process: Linear Thought Content: positive for Poverty of Content Judgement: Fair Diagnostics Vital Signs (24Hr): Vital Signs - 24 hr 10/05/23 21:46 Temperature 97.6 F Pulse Rate 88 Respiratory Rate 16 Blood Pressure 137/78 Pulse Oximetry 95 Oxygen Delivery Method Room Air BMI result Body Mass Index 30.8 Labs 10/01/23 17:07 10/01/23 17:08 Medications Medications Current Medications Acetaminophen (Acetaminophen 325 Mg Tablet) 650 mg PO Q6H PRN PRN Reason: Headache/Pain Mild Scale (1-3) Last Admin: 10/05/23 06:14 Dose: 650 mg Al Hydroxide/Mg Hydroxide (Magnesium Hydrox/Alum Hydrox 30 Ml Oral.Susp) 30 ml PO Q6H PRN PRN Reason: Heartburn/Nausea Atorvastatin Calcium (Atorvastatin Calcium 80 Mg Tablet) 80 mg PO DAILY [facility] Last Admin: 10/05/23 11:16 Dose: Not Given Brimonidine Tartrate (Brimonidine Tartrate 0.2% Oph 5 Ml Bottle) 1 drop EYE- BOTH BID [facility] Last Admin: 10/05/23 21:36 Dose: 1 drop Cefuroxime Axetil (Cefuroxime Axetil 250 Mg Tablet) 250 mg PO BID [facility] Stop: 10/06/23 09:01 Last Admin: 10/05/23 21:35 Dose: 250 mg Clonidine HCl (Clonidine Hcl 0.1 Mg Tablet) 0.1 mg PO Q4H PRN; Protocol PRN Reason: SBP>160 or DBP>100 Divalproex Sodium (Divalproex Sodium 250 Mg Tablet.) 250 mg PO BEDTIME [facility] Last Admin: 10/05/23 21:35 Dose: 250 mg Docusate Sodium (Docusate Sodium 100 Mg Capsule) 100 mg PO DAILY PRN PRN Reason: Constipation Latanoprost (Latanoprost 0.005 % Ophth Catie 2.5 Ml Drops) 1 drop EYE-BOTH BEDTIME [facility] Last Admin: 10/05/23 21:36 Dose: 1 drop Magnesium Hydroxide (Milk Of Magnesia 30 Ml Oral.Susp) 30 ml PO DAILY PRN PRN Reason: Constipation Nicotine Polacrilex (Nicotine Polacrilex 2 Mg Gum) 4 mg BUCCAL Q2H PRN PRN Reason: Nicotine Cravings Nifedipine (Nifedipine Er 60 Mg Tab.Er.24) 60 mg PO DAILY [facility] Last Admin: 10/05/23 11:12 Dose: Not Given Olanzapine (Olanzapine Odt 10 Mg Tab.Rapdis) 20 mg TRANSLINGU BEDTIME [facility] Last Admin: 10/05/23 21:35 Dose: 20 mg Olanzapine (Olanzapine 10 Mg Vial) 20 mg IM BEDTIME PRN PRN Reason: if refuses PO Zydis Omeprazole (Omeprazole 20 Mg Capsule.Dr) 20 mg PO DAILY@0630 [facility] Last Admin: 10/05/23 06:16 Dose: 20 mg Simethicone (Simethicone 80 Mg Tab.Chew) 80 mg PO DAILY PRN PRN Reason: Dyspepsia Trazodone HCl (Trazodone Hcl 50 Mg Tablet) 50 mg PO BEDTIME PRN PRN Reason: Insomnia Valsartan (Valsartan 80 Mg Tablet) 80 mg PO DAILY [facility]; Protocol Last Admin: 10/05/23 11:12 Dose: Not Given Allergies Allergies Allergy/AdvReac Type Severity Reaction Status Date / Time blueberry [Blueberry] Allergy Severe SWELLING Verified 10/01/23 16:40 lisinopril Allergy Intermediate cough Verified 10/01/23 16:40 mushroom Allergy Intermediate SWELLING Verified 10/01/23 16:40 shellfish derived Allergy Unknown UNKNOWN Verified 10/01/23 16:40 [SHELLFISH DERIVED] thioridazine Allergy Unknown Unknown Verified 10/01/23 16:40 tomato [TOMATO] Allergy Unknown UNKNOWN Verified 10/01/23 16:40 CHOCOLATE Allergy Intermediate ITCHING Uncoded 01/25/23 10:42 From MELLARIL Allergy Intermediate SHORTNESS Uncoded 01/25/23 10:42 OF BREATH From THORAZINE Allergy Intermediate SHORTNESS Uncoded 01/25/23 10:42 OF BREATH Assessment & Plan Assessment & Plan (1) Delirium: Status: Acute Code(s): R41.0 - Disorientation, unspecified Assessment and Plan: probably delirium from UTI superimposed on dementia. Continue to treat UTI (2) Schizophrenia: Qualifiers: Schizophrenia type: undifferentiated schizophrenia Qualified Code(s): F 20.3 - Undifferentiated schizophrenia Status: Acute Code(s): F20.9 - Schizophrenia, unspecified Assessment and Plan: versus schizoaffective disorder. Continue current meds Plan Patient is a 73-year-old female with history of psychotic illness, on a Pending sale to [facility] who presents with agitated behaviors in the community, likely due to delirium - related to UTI. continue course of antibx for UTI, follow delirium for improvement psychotic D/O schizophrenia V Schizoaffective D/O. unclear if pt had been compliant with medication in recent days, and how much of pt's presentation can be accounted for by psychotic Sx rather than delirium. restart/continue outpt psych regimen and follow for improvement in MS. Hospital course: 10/04 Patient remains with delirium secondary to UTI Patient difficult with which to engage, mostly sitting in the chair with her eyes closed and mumbling in audible answers as insurance underwriter sales asks questions. Patient would sometimes answer questions but other times seem to go back to sleep. She is however able to say her name, . Regarding where she is she says she knows she is in [place] but then says that she has on a ship. Junior Graphic Designer explains that she is in a hospital. Patient has been refusing vitals Patient's outreach team explain that at baseline she has tardive dyskinesia; she says that she is off her baseline which they think is due to UTI. Even at baseline however they say she has poor self-care. PLAN: q15 min continue Cefuroxime Axetil 250 mg PO BID EDIN -Increased to Zyprexa/Zydis 20mg qhs; give IM if refuses PO (Court ordered and on [facility]) -Zyprexa IM 20mg PRN if refuses PO/SL Zyprexa/Zydis (per court order) 10/06: Continue current plans and regimen Reason for continued inpatient stay Substantial Risk for: med/psych decompensation Time Spent With Patient Time: Total time managing care of this patient today ____ minutes.
[2023-10-06] MEDS: cefuroxime axetiL 250 MG TABLET PO (08:21)
[2023-10-06] MEDS: Omeprazole 20 MG CAPSULE.DR PO (08:21)
[2023-10-06] MEDS: Brimonidine Tartrate 0.2% Oph 5 ML BOTTLE 1 DROP EYE-BOTH ×2 (08:27→23:19)
[2023-10-06 20:35] VITALS: BP 144/73; PULSE 95; RESP 16; TEMP 37.3; O2SAT 97
[2023-10-06] MEDS: OLANZapine ODT 10 MG TAB.RAPDIS 20 MG TRANSLINGU (23:19)
[2023-10-06] MEDS: Divalproex Sodium 250 MG TABLET.DR PO (23:20)
[2023-10-06] MEDS: Latanoprost 0.005 % Ophth Sol 2.5 ML DROPS 1 DROP EYE-BOTH (23:21)
[2023-10-07 06:00] VITALS: BP 130/87; PULSE 90; RESP 18; TEMP 36.8; O2SAT 94
[2023-10-07] MEDS: Omeprazole 20 MG CAPSULE.DR PO (08:32)
[2023-10-07] MEDS: Valsartan 80 MG TABLET PO (08:33)
[2023-10-07] MEDS: NIFEdipine ER 60 MG TAB.ER.24 PO (08:33)
[2023-10-07] MEDS: Brimonidine Tartrate 0.2% Oph 5 ML BOTTLE 1 DROP EYE-BOTH (08:36)
--- NOTE | 2023-10-07 11:11 | PM.PSYDC ---
DS: Providers Provider Date of Service: 10/07/23 Date of admission: 10/02/23 14:24 Primary care physician: Unknown Physician DS: Diagnosis Discharge Diagnosis (1) Delirium: Status: Acute (2) Schizophrenia: Status: Acute DS: Medications Discharge Medications Home Medications: Home Medications Medication Instructions Recorded Confirmed divalproex 250 mg tablet,delayed 250 mg PO BEDTIME 07/09/20 10/02/23 release latanoprost (PF) 0.005 % eye drops 1 drp ophthalmic (eye) BEDTIME 11/24/20 10/02/23 brimonidine 0.2 % eye drops 1 drp ophthalmic (eye) BID 06/01/22 10/02/23 nifedipine 60 mg tablet,extended 60 mg PO DAILY 06/01/22 10/02/23 release atorvastatin 80 mg tablet 80 mg PO DAILY 10/02/23 10/02/23 docusate sodium 100 mg capsule 100 mg PO DAILY PRN Constipation 10/02/23 10/02/23 (Colace) olanzapine 15 mg disintegrating 15 mg PO BEDTIME 10/02/23 10/02/23 tablet omeprazole 20 mg capsule,delayed 20 mg PO DAILY@0630 10/02/23 10/02/23 release simethicone 80 mg chewable tablet 80 mg PO DAILY PRN Dyspepsia 10/02/23 10/02/23 valsartan 80 mg tablet 80 mg PO DAILY 10/02/23 10/02/23 Previous Rx's Medication Instructions Recorded cefuroxime axetil 250 mg tablet 250 mg PO BID UTI 5 days #10 tabs 10/07/23 Mental Status Exam Mental Status Exam Patient Appearance: Well Grooomed Patient Orientation: Person Level of Consciousness: Awake Patient Behavior: Isolative Mood Description: Withdrawn Affect Description: Blunted Patient Cognition Impaired: Yes Ability to Follow Directions: Fair Speech Pattern: Poor Articulation Memory Description: Recent Impaired Hallucinations: Auditory Delusions: Paranoid Ideation Thought Process: Linear Thought Content: positive for Poverty of Content Judgement: Fair Data Data Completed and Pending Completed studies during hospitalization [Text1]: 10/01/23 10/01/23 10/01/23 16:52 16:53 17:07 WBC 8.5 RBC 4.61 Hgb 14.1 Hct 41.6 MCV 90.2 MCH 30.6 MCHC 33.9 RDW 13.1 Plt Count 154 L MPV 9.9 Immature Gran % (Auto) 0.2 Neut % (Auto) 44.9 L Lymph % (Auto) 44.2 H [place] % (Auto) 7.4 Eos % (Auto) 2.7 Baso % (Auto) 0.6 Lymph # (Auto) 3.7 [place] # (Auto) 0.6 Eos # (Auto) 0.2 Baso # (Auto) 0.1 Abs Immat Gran (auto) 0.02 Absolute Neuts (auto) 3.8 Absolute Nucleated RBC 0.000 Nucleated RBC % (auto) 0.0 Sodium Potassium Chloride Carbon Dioxide Anion Gap BUN Creatinine Estim Creat Clear Calc Estimated GFR POC Glucose Random Glucose Calcium Total Bilirubin AST ALT Alkaline Phosphatase Total Protein Albumin Urine Color Yellow Urine Appearance Clear Urine pH 5.5 Ur Specific [place] 1.010 Urine Protein Negative Urine Glucose (UA) Negative Urine Ketones Negative Urine Blood Negative Urine Nitrite Positive H Ur Leukocyte Esterase Negative Urine RBC 0-2 Urine WBC 0-5 Ur Squamous Epith Cells 3-5 Urine Bacteria 1+ Hyaline Casts 0-2 Urine Yeast Present Salicylates < 5.0 L Urine Opiates Screen Not Detected Urine Fentanyl Screen Not Detected Acetaminophen < 3 Ur Barbiturates Screen Not Detected Ur Phencyclidine Scrn Not Detected Ur Amphetamines Screen Not Detected U Benzodiazepines Scrn Not Detected Urine Cocaine Screen Not Detected U Marijuana (THC) Screen Not Detected Ethyl Alcohol COVID-19 (MANNIE) COVID-19 Clin Com 10/01/23 10/01/23 10/02/23 17:08 17:50 22:47 WBC RBC Hgb Hct MCV MCH MCHC RDW Plt Count MPV Immature Gran % (Auto) Neut % (Auto) Lymph % (Auto) [place] % (Auto) Eos % (Auto) Baso % (Auto) Lymph # (Auto) [place] # (Auto) Eos # (Auto) Baso # (Auto) Abs Immat Gran (auto) Absolute Neuts (auto) Absolute Nucleated RBC Nucleated RBC % (auto) Sodium 142 Potassium 3.7 Chloride 107 Carbon Dioxide 23 Anion Gap 16 BUN 13 Creatinine 0.93 Estim Creat Clear Calc 58.7 Estimated GFR 59 POC Glucose 114 Random Glucose 103 Calcium 9.8 Total Bilirubin 1.0 AST 36 H ALT 22 Alkaline Phosphatase 81 Total Protein 7.2 Albumin 4.3 Urine Color Urine Appearance Urine pH Ur Specific [place] Urine Protein Urine Glucose (UA) Urine Ketones Urine Blood Urine Nitrite Ur Leukocyte Esterase Urine RBC Urine WBC Ur Squamous Epith Cells Urine Bacteria Hyaline Casts Urine Yeast Salicylates Urine Opiates Screen Urine Fentanyl Screen Acetaminophen Ur Barbiturates Screen Ur Phencyclidine Scrn Ur Amphetamines Screen U Benzodiazepines Scrn Urine Cocaine Screen U Marijuana (THC) Screen Ethyl Alcohol < 10 COVID-19 (MANNIE) Negative COVID-19 Clin Com See Note DS: Summary Hospital Course Hospital Course: per 10/03 admission note: BIBA due to concerning behaviors at her apartment building, such as yelling in the night, wandering the halls wearing only a bra for a top, smashing glass bowls, picking up the shards. it is unclear if she has been compliant with medication recently. she was unable to fully participate in CARE team eval due to her impaired mental status. per collateral obtained by CARE team, pt is significantly off of her baseline, as she normally is able to live independently with supports. on interview with MD, pt is sleeping but rousable. cogent communication is fraught, but MD does manage to understand that pt reports an improved mood and denies any safety concerns. psychotic Sx are unclear. pt is generally rambling, tangential, possibly delusional. she is able to remain focused for only the briefest periods to answer concrete questions. he substantial mental status change in the setting of UTI is supportive of delirium, but she has possibly also not been taking her psych medications consistently. pt is grossly not oriented and is considered a very poor historian. Past Psychiatric History: [facility] client, kev's order and guardian. Schizoaffective D/O Dx per [facility]: [facility] [place], [facility] [place] 2013, [place] fall 2015. outpt: [facility] Medical Evaluation Reviewed: Yes [facility] Medical History Bipolar 1 disorder GERD (gastroesophageal reflux disease) Glaucoma Hyperlipidemia Schatzki's ring Narrative: DM [facility] Surgical History History of cataract surgery History of section History of total abdominal hysterectomy Family History: unknown Social History: lives in her own apartment. 2 adult children. born in [place]. moved to [place] in 1997. Substance History: tox NEG, none reported Trauma History: unknown Precis: 10/03: delirium - appears most likely related to UTI. continue course of antibx for UTI, follow delirium for improvement psychotic D/O schizophrenia V Schizoaffective D/O. unclear if pt had been compliant with medication in recent days, and how much of pt's presentation can be accounted for by psychotic Sx rather than delirium. restart/continue outpt psych regimen and follow for improvement in MS. 10/04: Patient remains with delirium secondary to UTI Patient difficult with which to engage, mostly sitting in the chair with her eyes closed and mumbling in audible answers as writer producer asks questions. Patient would sometimes answer questions but other times seem to go back to sleep. She is however able to say her name, . Regarding where she is she says she knows she is in [place] but then says that she has on a ship. Line Painting Machine Operator explains that she is in a hospital. Patient has been refusing vitals Patient's outreach team explain that at baseline she has tardive dyskinesia; she says that she is off her baseline which they think is due to UTI. Even at baseline however they say she has poor self-care. q15 min continue Cefuroxime Axetil 250 mg PO BID EDIN -Increased to Zyprexa/Zydis 20mg qhs; give IM if refuses PO (Court ordered and on [facility]) -Zyprexa IM 20mg PRN if refuses PO/SL Zyprexa/Zydis (per court order) 10/06: Continue current plans and regimen 10/07: clearer mental status. 12b up today. declines to sign in, states she would like to discharge home. cites numerous supports in her home. discharged as per patient preference. Time Spent with Patient Time attestation: Total time managing care of this patient today ____ minutes. Time spent: Greater than 30 minutes Discharge Plan Discharge Anticipated Discharge Date/Time: 10/07/23 13:30 Patient Disposition: Home, Self-Care Discharge Diagnosis: Delirium Schizophrenia Referrals: [facility] [Provider Group] - 1 Week Discharge Medications: New cefuroxime axetil 250 mg tablet 250 mg PO BID 5 Days Qty: 10 0RF Continued atorvastatin 80 mg Tablet 80 mg PO DAILY valsartan 80 mg Tablet 80 mg PO DAILY olanzapine 15 mg Tablet,Disintegrating 15 mg PO BEDTIME simethicone 80 mg Tablet,Chewable 80 mg PO DAILY PRN (Reason: Dyspepsia) docusate sodium [Colace] 100 mg capsule 100 mg PO DAILY PRN (Reason: Constipation) omeprazole 20 mg capsule,delayed release(DR/EC) 20 mg PO DAILY@0630 divalproex 250 mg tablet,delayed release (DR/EC) 250 mg PO BEDTIME latanoprost (PF) 0.005 % drops 1 drp ophthalmic (eye) BEDTIME Rx Instructions: both eyes nifedipine 60 mg tablet extended release 60 mg PO DAILY brimonidine 0.2 % drops 1 drp ophthalmic (eye) BID Rx Instructions: right eye Discharge Orders: Discharge Order (Routine); Ordered 10/07/23 Ordered By: Remy Galeano Diet: Advance to usual diet Activity on Discharge: As tolerated Stand Alone Forms: Patient Portal Discharge page Care Plan Goals: remain safe and stable in the outpatient treatment seting Health Concerns: Delirium UTI Plan of Treatment: take medications as prescribed, attend appointments as scheduled Assessment: not at imminent risk of harm to self or others
--- NOTE | 2023-10-07 13:32 | PC.NURSE ---
Patient easily engaged. Reports she is ready to go home, wants to go home. Reports mood is good today. Disoriented to day however aware of date. Denies SI/HI at this time. Pleasant on approach. No overt psychosis or expressed delusions. Discharge paperwork reviewed with patient, reports understanding. Made aware of [facility] if in need of immediate attention. Aware visiting nurse will resume tonight. Crisis numbers provided to patient. All belongings returned to patient.
== END 2023-10-07 13:20 | disposition home or self-care (01) | DRG 885 ==
LOC: HO.ED 10-02 08:44 → HO.PADLT16 10-02 14:33
PROVIDERS: Physician Assistant; Admitting Provider Psychiatry & Neurology Psychiatry; Emergency Provider Student in an Organized Health Care Education/Training Program; Visit Provider Psychiatry & Neurology Psychiatry
DX: F20.9 Schizophrenia, unspecified (principal); N39.0 Urinary tract infection, site not specified; F05 Delirium due to known physiological condition; K21.9 Gastro-esophageal reflux disease without esophagitis; E78.5 Hyperlipidemia, unspecified; G24.01 Drug induced subacute dyskinesia; Z20.822 Contact with and (suspected) exposure to COVID-19; Z91.148 Patient's other noncompliance with medication regimen for other reason; Z87.891 Personal history of nicotine dependence; Z79.899 Other long term (current) drug therapy
CPT/HCPCS: 80053; 80143; 80179; 80307; 81001; 81003; 82947; 85025; 87635; 93005; 99285; S9485

== ENCOUNTER → 2023-10-01 16:47 | Outpatient (BNV) | payer MEDICARE, SELFPAY | PROVIDERS: Admitting Provider Psychiatry & Neurology Psychiatry; Emergency Provider Student in an Organized Health Care Education/Training Program; Visit Provider Internal Medicine | DX: I45.89 Other specified conduction disorders (principal) | CPT/HCPCS: 93010 ==

== ENCOUNTER → 2023-10-02 14:24 | Outpatient (BNV) | payer MEDICARE, SELFPAY | PROVIDERS: Admitting Provider Psychiatry & Neurology Psychiatry; Emergency Provider Student in an Organized Health Care Education/Training Program; Visit Provider Psychiatry & Neurology Psychiatry | DX: F20.3 Undifferentiated schizophrenia (principal); R41.0 Disorientation, unspecified | CPT/HCPCS: 90792; 99231; 99232; 99239 ==

== ENCOUNTER 2023-11-21 09:12 | Outpatient (AMB) | payer MEDICARE, SELFPAY ==
[2023-11-21 09:16] VITALS: BP 142/84; PULSE 78; O2SAT 97; BMI 37.3
--- NOTE | 2023-11-21 09:16 | A.OFFPC_ITS ---
Vital Signs 11/21/23 09:16 Height 5 ft 2 in Weight 204 lb BMI 37.3 BP 142/84 H Blood Pressure Location Lt brachial Position Sitting Pulse 78 Pulse Source Pulse Oximeter Pulse Oximetry (%) 97 Oxygen Delivery Method Room Air Intake Visit Reasons: DM Intake Note: Patient is here to follow up on DM Hides And Skins Colorer Required: No Allergies blueberry [Blueberry] Allergy (Severe, Verified 11/21/23 09:26) SWELLING lisinopril Allergy (Intermediate, Verified 11/21/23 09:26) cough mushroom Allergy (Intermediate, Verified 11/21/23 09:26) SWELLING shellfish derived [SHELLFISH DERIVED] Allergy (Unknown, Verified 11/21/23 09:26) UNKNOWN thioridazine Allergy (Unknown, Verified 11/21/23 09:26) Unknown tomato [TOMATO] Allergy (Unknown, Verified 11/21/23 09:26) UNKNOWN CHOCOLATE Allergy (Intermediate, Uncoded 11/21/23 09:26) ITCHING From MELLARIL Allergy (Intermediate, Uncoded 11/21/23 09:26) SHORTNESS OF BREATH From THORAZINE Allergy (Intermediate, Uncoded 11/21/23 09:26) SHORTNESS OF BREATH Tobacco use date assessed: 11/21/23 Fall risk assessment: No Falls in past year Last assessed Fall Risk: 11/21/23 Dental Screening Dental Screen Date: 11/21/23 Did you have a dental visit in the last 12 months?: No Did you have a dental problem in the last 6 months where you did not have access to dental care?: No HPI DM HPI Details 73-year-old obese female with a history controlled diabetes mellitus hypercholesterolemia GERD hypertension and schizophrenia last seen in January and was advised mammogram and colonoscopy patient is here for follow-up. Patient was in the hospital recently for delirium and schizophrenia in September 2023 also had notes from Nephrology January 2023 hypertension ambulatory blood pressure monitor poorly-controlled hypertension on valsartan and hydrochlorothiazide and nifedipine well controlled now. [facility] Medical History Bipolar 1 disorder GERD (gastroesophageal reflux disease) Glaucoma Hyperlipidemia Schatzki's ring Surgical History History of cataract surgery History of section History of total abdominal hysterectomy Family History (Updated 01/25/23 @ 10:43 by Marley Black CMA) Father No problems noted. Mother No problems noted. Social History Household Members: None Housing: Apartment Do you presently have visiting nurse or other home services: Yes Unable to assess alcohol history related to: Unable to respond Alcohol intake: never Patient Tobacco Use Status: Former Tobacco user Quit Date: unwilling to respond Tobacco use type: Cigarette e-Cigarette/Vaping Use: Never Used service: No Current occupational status: disabled Sexual orientation: Straight/Heterosexual Cognitive needs: Yes Hearing needs: Yes Vision needs: Yes Questionnaire Thrive Questionnaire Date Thrive assessed: 10/03/23 AUDIT C Alcohol Use Questionnaire (AUDIT-C) 1. How often do you have a drink containing alcohol?: Never 3. How often do you have six or more drinks on one occasion?: Never Total Score: 0 DELFINO-7 AMB Questionnaire DELFINO-7 Date DELFINO - 7 assessed: 11/21/23 Source: Developed by Drs. Kevin Murray, Vivian Mclain, Henrique Elise and colleagues, with an educational ankit from [employer]. Physical exam (Primary Care) Vital Signs: Last Vital Signs Pulse 78 11/21/23 09:16 BP 142/84 H 11/21/23 09:16 Pulse Ox 97 11/21/23 09:16 Oxygen Delivery Method Room Air 11/21/23 09:16 BMI result Body Mass Index 37.3 Tobacco/Smoking Status: Tobacco use Status Tobacco use date assessed 11/21/23 11/21/23 09:18 Patient Tobacco Use Status Former Tobacco user 11/21/23 09:18 Tobacco use type Cigarette 11/21/23 09:18 e-Cigarette/Vaping Use Never Used 11/21/23 09:18 Thrive Assessment: Date of Thrive Assessment Date Thrive assessed 10/03/23 11/21/23 09:18 Const General: alert; No acute distress Eyes Conjunctivae: conjunctivae normal Resp Auscultation: clear to auscultation bilaterally Cardio Rate: regular rate Rhythm: regular rhythm GI Inspection: Yes normal to inspection Extrem General: Yes normal to inspection and No edema Results AMB Hemoglobin A1c AMB Hemoglobin A1c 5.9 % Last Edit by YULY Holm on 11/21/23 09:35 Results Reviewed Results Reviewed: Laboratory Last Values Hgb A1c (Clinic) 5.9 % (4.0-6.0) 11/21/23 09:04 Assessment and Plan Assessment & Plan (1) Obesity (BMI 30-39.9): Code(s): E66.9 - Obesity, unspecified Plan: Diet and exercise (2) Type 2 diabetes mellitus with hyperglycemia: Comment: DR. Simmons Code(s): E11.65 - Type 2 diabetes mellitus with hyperglycemia Qualifiers: Diabetes mellitus tube backer insulin use: without penitentiary use Qualified Code(s): E11.65 - Type 2 diabetes mellitus with hyperglycemia Plan: Decrease the amount of carbohydrate intake, pasta, bread, rice and potatoes are all sugar and that is aside from all the sweet stuff, remember that fruits are good but they are Sweet also. Him open A1c goal of less than 7.0 presently on diet control (3) Hyperlipidemia: Code(s): E78.5 - Hyperlipidemia, unspecified Qualifiers: Hyperlipidemia type: pure hypercholesterolemia Qualified Code(s): E78.00 - Pure hypercholesterolemia, unspecified Plan: Avoid fried foods, chicken skin, eggs, butter margarine, pastries and meat. Be it pork or beef they have a lot of cholesterol LDL goal of less than 100 and triglyceride of less than 150 patient on atorvastatin 80 mg once a day advised to get blood work done (4) HTN (hypertension): Code(s): I10 - Essential (primary) hypertension Qualifiers: Hypertension type: essential hypertension Qualified Code(s): I10 - Essential (primary) hypertension Plan: Continue with blood pressure medication. Decrease salt intake and exercise takes nifedipine 60 mg once a day valsartan 80 mg once a day. from nephrology need to be on Valsaran HCTZ 80/12.5 mg QD (5) GERD (gastroesophageal reflux disease): Code(s): K21.9 - Gastro-esophageal reflux disease without esophagitis Qualifiers: Esophagitis presence: without esophagitis Qualified Code(s): K21.9 - Gastro-esophageal reflux disease without esophagitis Plan: Avoid the foods that causes that usually spicy foods, tomato products, juices, coffee, soda and foods that your sensitive to. After eating do not lie down, allow 3-4 hours before in lie down. And keep the head of bed above 30 degrees to avoid the acid from going up. (6) Schizophrenia: Code(s): F20.9 - Schizophrenia, unspecified Qualifiers: Schizophrenia type: undifferentiated schizophrenia Qualified Code(s): F20.3 - Undifferentiated schizophrenia Plan: Advised to follow-up with psychiatry and continue with present medication (7) Breast cancer screening by mammogram: Code(s): Z12. - Encounter for screening mammogram for malignant neoplasm of breast Plan: Reminded about mammogram (8) Colon cancer screening: Code(s): Z12.11 - Encounter for screening for malignant neoplasm of colon Plan: Reminded about colonoscopy Orders: Orders AMB Hemoglobin A1c Today E11.65 - Type 2 diabetes mellitus with hyperglycemia Medications: New valsartan-hydrochlorothiazide 80-12.5 mg 1 tab PO DAILY 30 tabs 3RF E11.65 - Type 2 diabetes mellitus with hyperglycemia Coding Level of Care Code Est Pt Level 4 (26920) Diagnoses Obesity (BMI 30-39.9) E66.9 Type 2 diabetes mellitus with hyperglycemia, without long-term current use of insulin E11.65 Diabetes mellitus penitentiary insulin use: without tube backer use Pure hypercholesterolemia E78.00 Hyperlipidemia type: pure hypercholesterolemia Essential hypertension I10 Hypertension type: essential hypertension Gastroesophageal reflux disease without esophagitis K21.9 Esophagitis presence: without esophagitis 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 Breast cancer screening by mammogram Z. Colon cancer screening Z12.11
== END 2023-11-21 10:06 | disposition home or self-care (01) ==
PROVIDERS: PCP Internal Medicine; Visit Provider Internal Medicine
DX: E11.65 Type 2 diabetes mellitus with hyperglycemia (principal); F20.3 Undifferentiated schizophrenia; E66.9 Obesity, unspecified; Z68.37 Body mass index [BMI] 37.0-37.9, adult; E78.00 Pure hypercholesterolemia, unspecified; I10 Essential (primary) hypertension; K21.9 Gastro-esophageal reflux disease without esophagitis; Z12.31 Encounter for screening mammogram for malignant neoplasm of breast; Z12.11 Encounter for screening for malignant neoplasm of colon
CPT/HCPCS: 83036; 99214

== ENCOUNTER 2024-03-20 10:02 | Outpatient (AMB) | payer MEDICARE, SELFPAY ==
[2024-03-20 10:04] VITALS: BP 142/90; PULSE 78; O2SAT 98; BMI 37.3
--- NOTE | 2024-03-20 10:04 | MHC.PC.OV ---
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 Allergies blueberry [Blueberry] Allergy (Severe, Verified 03/20/24 10:09) SWELLING lisinopril Allergy (Intermediate, Verified 03/20/24 10:09) cough mushroom Allergy (Intermediate, Verified 03/20/24 10:09) SWELLING shellfish derived [SHELLFISH DERIVED] Allergy (Unknown, Verified 03/20/24 10:09) UNKNOWN thioridazine Allergy (Unknown, Verified 03/20/24 10:09) Unknown tomato [TOMATO] Allergy (Unknown, Verified 03/20/24 10:09) UNKNOWN CHOCOLATE Allergy (Intermediate, Uncoded 03/20/24 10:09) ITCHING From MELLARIL Allergy (Intermediate, Uncoded 03/20/24 10:09) SHORTNESS OF BREATH From THORAZINE Allergy (Intermediate, Uncoded 03/20/24 10:09) SHORTNESS OF BREATH Tobacco use date assessed: 11/21/23 Fall risk assessment: No Falls in past year Last assessed Fall Risk: 03/20/24 Dental Screening Dental Screen Date: 11/21/23 HPI 3 Month F/U HPI Details 74-year-old obese female with controlled diabetes mellitus hypercholesterolemia hypertension GERD has a history of schizophrenia last seen in October 2023. Patient was advised to get colonoscopy as well as mammogram. fall -last week, states dizzy states pain on the R hip and R 2nd finger. PAtient is hard to understand. states leaving town. PAtient states bloated withbabies. [facility] Medical History Bipolar 1 disorder GERD (gastroesophageal reflux disease) Glaucoma Hyperlipidemia Schatzki's ring Surgical History History of cataract surgery History of section History of total abdominal hysterectomy Family History (Updated 01/25/23 @ 10:43 by Marley Black CMA) Father No problems noted. Mother No problems noted. Social History Household Members: None Housing: Apartment Do you presently have visiting nurse or other home services: Yes Unable to assess alcohol history related to: Unable to respond Alcohol intake: never Patient Tobacco Use Status: Former Tobacco user Tobacco use type: Cigarette e-Cigarette/Vaping Use: Never Used service: No Current occupational status: disabled Sexual orientation: Straight/Heterosexual Cognitive needs: Yes Hearing needs: Yes Vision needs: Yes Questionnaire Thrive Questionnaire Date Thrive assessed: 10/03/23 AUDIT C Alcohol Use Questionnaire (AUDIT-C) 1. How often do you have a drink containing alcohol?: Never 3. How often do you have six or more drinks on one occasion?: Never Total Score: 0 DELFINO-7 AMB Questionnaire DELFINO-7 Date DELFINO - 7 assessed: 11/21/23 Source: Developed by Drs. Kevin Murray, Vivian Mclain, Henrique Elise and colleagues, with an educational ankit from [employer] Physical exam (Primary Care) Vital Signs: Oxygen Delivery Method Room Air 03/20/24 10:04 Tobacco/Smoking Status: Tobacco use Status Tobacco use date assessed 11/21/23 11/21/23 09:18 Patient Tobacco Use Status Former Tobacco user 11/21/23 09:18 Tobacco use type Cigarette 11/21/23 09:18 e-Cigarette/Vaping Use Never Used 11/21/23 09:18 Thrive Assessment: Date of Thrive Assessment Date Thrive assessed 10/03/23 11/21/23 09:18 Const General: alert; No acute distress Eyes Conjunctivae: conjunctivae normal Resp Auscultation: clear to auscultation bilaterally Cardio Rate: regular rate Rhythm: regular rhythm GI Inspection: Yes normal to inspection Extrem General: Yes normal to inspection and No edema Results AMB Hemoglobin A1c AMB Hemoglobin A1c 5.8 % Last Edit by YULY Holm on 03/20/24 10:15 Assessment and Plan Assessment & Plan (1) Type 2 diabetes mellitus with hyperglycemia: Comment: DR. Simmons Code(s): E11.65 - Type 2 diabetes mellitus with hyperglycemia Qualifiers: Diabetes mellitus half-way insulin use: without intermodal truck driver use Qualified Code(s): E11.65 - Type 2 diabetes mellitus with hyperglycemia Plan: Decrease the amount of carbohydrate intake, pasta, bread, rice and potatoes are all sugar and that is aside from all the sweet stuff, remember that fruits are good but they are Sweet also. Hemoglobin A1c goal of less than 7.0. Patient is diet controlled. (2) Obesity (BMI 30-39.9): Code(s): E66.9 - Obesity, unspecified Plan: Diet and exercise (3) HTN (hypertension): Code(s): I10 - Essential (primary) hypertension Qualifiers: Hypertension type: essential hypertension Qualified Code(s): I10 - Essential (primary) hypertension Plan: Continue with blood pressure medication. Decrease salt intake and exercise patient takes nifedipine ER 60 mg once a day valsartan hydrochlorothiazide 80/12.5 mg once a day concern that the blood pressure remains to be elevated. Request for blood work and an increase in valsartan (4) GERD (gastroesophageal reflux disease): Code(s): K21.9 - Gastro-esophageal reflux disease without esophagitis Qualifiers: Esophagitis presence: without esophagitis Qualified Code(s): K21.9 - Gastro-esophageal reflux disease without esophagitis Plan: Avoid the foods that causes that usually spicy foods, tomato products, juices, coffee, soda and foods that your sensitive to. After eating do not lie down, allow 3-4 hours before in lie down. And keep the head of bed above 30 degrees to avoid the acid from going up. (5) Hyperlipidemia: Code(s): E78.5 - Hyperlipidemia, unspecified Qualifiers: Hyperlipidemia type: pure hypercholesterolemia Qualified Code(s): E78.00 - Pure hypercholesterolemia, unspecified Plan: Avoid fried foods, chicken skin, eggs, butter margarine, pastries and meat. Be it pork or beef they have a lot of cholesterol patient needs blood work LDL goal of less than 100 and triglyceride of less than 150 on atorvastatin 80 mg once a day (6) Schizophrenia: Code(s): F20.9 - Schizophrenia, unspecified Qualifiers: Schizophrenia type: undifferentiated schizophrenia Qualified Code(s): F20.3 - Undifferentiated schizophrenia Plan: Patient is advised to follow-up with psychiatry and counseling (7) Breast cancer screening by mammogram: Code(s): Z12.31 - Encounter for screening mammogram for malignant neoplasm of breast Plan: Patient is reminded about the mammogram (8) Colon cancer screening: Code(s): Z12.11 - Encounter for screening for malignant neoplasm of colon Plan: Patient is reminded about colon cancer screening. (9) Fall: Comment: 02/2024 Code(s): W19.XXXA - Unspecified fall, initial encounter (10) Finger pain, right: Comment: R 2ng finger 02/2024 Code(s): M79.644 - Pain in right finger(s) Orders: Orders MM tomosynthesis screening BI Today Z12.31 - Encounter for screening mammogram for malignant neoplasm of breast AMB Hemoglobin A1c Today E11.65 - Type 2 diabetes mellitus with hyperglycemia XR hand RT 2V Today M79.644 - Pain in right finger(s) Medications: New valsartan-hydrochlorothiazide 160-12.5 mg 1 tab PO DAILY 30 tabs 5RF I10 - Essential (primary) hypertension Discontinued valsartan-hydrochlorothiazide 80-12.5 mg Discontinued Reason: Doctor's Order 1 tab PO DAILY 30 tabs 3RF E11.65 - Type 2 diabetes mellitus with hyperglycemia Coding Level of Care Code Est Pt Level 4 (66187) Diagnoses Type 2 diabetes mellitus with hyperglycemia, without long-term current use of insulin E11.65 Diabetes mellitus intermodal truck driver insulin use: without intermodal truck driver use Obesity (BMI 30-39.9) E66.9 Essential hypertension I10 Hypertension type: essential hypertension Gastroesophageal reflux disease without esophagitis K21.9 Esophagitis presence: without esophagitis Pure hypercholesterolemia E78.00 Hyperlipidemia type: pure hypercholesterolemia 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 Breast cancer screening by mammogram Z12.31 Colon cancer screening Z12.11 Fall W19.XXXA Finger pain, right M79.644
== END 2024-03-20 10:37 | disposition home or self-care (01) ==
PROVIDERS: Visit Provider Internal Medicine
DX: E11.65 Type 2 diabetes mellitus with hyperglycemia (principal); I10 Essential (primary) hypertension; K21.9 Gastro-esophageal reflux disease without esophagitis; E78.00 Pure hypercholesterolemia, unspecified
CPT/HCPCS: 83036; 99214

== ENCOUNTER 2024-05-12 11:16 | Inpatient (IN) | payer OTHER, SELFPAY ==
--- NOTE | ~2024-05-12 | CT_ITS ---
EXAMINATION: CT HEAD WITHOUT CONTRAST CLINICAL INFORMATION: Unwitnessed fall COMPARISON: None available. TECHNIQUE: Contiguous axial imaging was performed from the skull base to vertex without intravenous administration of contrast. This CT examination was performed using dose optimization techniques as appropriate, variously including the following: *Automated exposure control *Adjustment of mA and/or kV according to patient size (this includes techniques or standardized protocols for targeted exams where dose is matched to indication/reason for exam; i.e. extremities or head) *Use of iterative reconstruction technique DLP: 701.37 mGy-cm FINDINGS: CT Head: The ventricles, sulci and cisterns are age-appropriate. There is no mass-effect, midline shift, or space-occupying lesion. There is no acute intracranial hemorrhage or extra-axial fluid collection. There is no acute territorial infarct. The visualized paranasal sinuses are clear. The mastoid air cells are clear. The orbits and soft tissues are unremarkable. There is no displaced calvarial fracture. CT/CT head/brain wo IV con IMPRESSION: No acute intracranial pathology. Electronically signed by: Tierra Clemons MD 05/22/2024 12:08 PM EDT
--- NOTE | ~2024-05-12 | CT_ITS ---
EXAMINATION: CT PELVIS WITHOUT CONTRAST CLINICAL INFORMATION: Unwitnessed fall COMPARISON: None available. TECHNIQUE: Helical scanning was performed with submillimeter collimation through the pelvis. Sagittal and coronal multiplanar 2-D reconstructions were obtained. This CT examination was performed using dose optimization techniques as appropriate, variously including the following: *Automated exposure control *Adjustment of mA and/or kV according to patient size (this includes techniques or standardized protocols for targeted exams where dose is matched to indication/reason for exam; i.e. extremities or head) *Use of iterative reconstruction technique DLP: 574 mGy-cm FINDINGS: PELVIS: There is no pelvic mass. OSSEOUS STRUCTURES: There is no evidence of fractures. Patient demonstrates normal osseous mineralization. There are mild degenerative changes with subchondral cyst in the right acetabulum. There is no fluid in the pelvis. There is large amount of retained feces in the colon. There are no masses in the pelvis. Uterus is surgically absent. CT/CT pelvis wo IV con IMPRESSION: No fractures. Mild degenerative changes in the right hip joint. Constipation. Electronically signed by: Tierra Clemons MD 05/22/2024 11:40 AM EDT
--- NOTE | ~2024-05-12 | CT_ITS ---
EXAMINATION: CT CERVICAL SPINE WITHOUT CONTRAST CLINICAL INFORMATION: Unwitnessed fall COMPARISON: None available. TECHNIQUE: This CT examination was performed using dose optimization techniques as appropriate, variously including the following: *Automated exposure control *Adjustment of mA and/or kV according to patient size (this includes techniques or standardized protocols for targeted exams where dose is matched to indication/reason for exam; i.e. extremities or head) *Use of iterative reconstruction technique DLP: 265 mGy-cm FINDINGS: There is straightening of cervical lordosis and multilevel degenerative spondylosis with marginal spurring. No evidence of fractures or osseous destruction or spinal compression is identified. Soft tissues demonstrate prominence of the left lobe of the thyroid gland with multiple overlapping nodules. Lung bases are clear. CT/CT cervical spine wo IV con IMPRESSION: 1. Multilevel degenerative changes without evidence of fracture or subluxation. 2. Multinodular thyroid gland. Fleischner guidelines were followed. Electronically signed by: Tierra Clemons MD 05/22/2024 12:01 PM EDT
[2024-05-12 11:41] VITALS: BP 195/111; PULSE 111; RESP 20; TEMP 36.2; O2SAT 95; BMI 39.7
--- NOTE | 2024-05-12 11:49 | ED.PSYCH ---
HPI - Psych General Chief Complaint: General Medical Stated Complaint: SEC 12 PER EMS Time Seen by Provider: 05/12/24 11:48 Source: patient and EMS Mode of arrival: EMS Limitations: no limitations History of Present Illness ED Provider: Mac Chapin PA-C HPI Narrative: 74-year-old female with a history of schizophrenia, dementia, bipolar, diabetes, HTN, restless legs syndrome, GERD, obesity who presents to the ER from home on a section 12 from the community for concerns of not taking her medications. She is in a program where she lives alone, has visiting nurses come in to administer her meds. She has a Dario's order. She reportedly has not been allowing the visiting nurse to enter the home. There is report of aggressive and impulsive behavior. Section 12 is noting inability to care for self with concerns for on livable conditions. She reportedly has been hospitalized several times according to the Section 12. On arrival to the ER the patient is unwilling to answer any questions. Not participating in interview or examination. MD complaint: altered mental status Onset (ago): unknown Treatments prior to arrival: placed on mental health hold Related Data Home Medications ?Medication ?Instructions ?Recorded ?Confirmed divalproex 250 mg tablet,delayed 250 mg PO BEDTIME 07/09/20 05/12/24 release latanoprost (PF) 0.005 % eye drops 1 drp ophthalmic (eye) BEDTIME 11/24/20 05/12/24 brimonidine 0.2 % eye drops 1 drp ophthalmic (eye) BID 06/01/22 05/12/24 olanzapine 15 mg disintegrating 15 mg PO BEDTIME 10/02/23 05/12/24 tablet simethicone 80 mg chewable tablet 80 mg PO NEEDED PRN Dyspepsia 10/02/23 05/12/24 docusate sodium 100 mg capsule 100 mg PO NEEDED PRN 05/12/24 05/12/24 (Colace) Constipation olanzapine 5 mg tablet (Zyprexa) 5 mg PO DAILY 05/12/24 05/12/24 Previous Rx's ?Medication ?Instructions ?Recorded atorvastatin 80 mg tablet 80 mg PO DAILY #30 tabs 11/17/23 omeprazole 20 mg capsule,delayed 20 mg PO DAILY@0630 #90 caps 01/04/24 release valsartan 160 1 tab PO DAILY #30 tabs 03/20/24 mg-hydrochlorothiazide 12.5 mg tablet nifedipine 60 mg tablet,extended 60 mg PO DAILY #90 tabs 04/16/24 release Allergies Allergy/AdvReac Type Severity Reaction Status Date / Time blueberry [Blueberry] Allergy Severe SWELLING Verified 05/12/24 12:03 lisinopril Allergy Intermediate cough Verified 05/12/24 12:03 mushroom Allergy Intermediate SWELLING Verified 05/12/24 12:03 shellfish derived Allergy Unknown UNKNOWN Verified 05/12/24 12:03 [SHELLFISH DERIVED] thioridazine Allergy Unknown Unknown Verified 05/12/24 12:03 tomato [TOMATO] Allergy Unknown UNKNOWN Verified 05/12/24 12:03 CHOCOLATE Allergy Intermediate ITCHING Uncoded 03/20/24 10:09 From MELLARIL Allergy Intermediate SHORTNESS Uncoded 03/20/24 10:09 OF BREATH From THORAZINE Allergy Intermediate SHORTNESS Uncoded 03/20/24 10:09 OF BREATH Review of Systems Review of Systems: Yes Unobtainable due to mental condition and Unobtainable due to mental status [facility] Past Medical History Medical History Bipolar 1 disorder GERD (gastroesophageal reflux disease) Glaucoma Hyperlipidemia Schatzki's ring Surgical History History of cataract surgery History of section History of total abdominal hysterectomy Family History Family History (Updated 01/25/23 @ 10:43 by Marley Black CMA) Father No problems noted. Mother No problems noted. Social History Social History Household Members: None Housing: Apartment Do you presently have visiting nurse or other home services: Yes Unable to assess alcohol history related to: Unknown Alcohol intake: never Patient Tobacco Use Status: Former Tobacco user Tobacco use type: Cigarette e-Cigarette/Vaping Use: Never Used Use of substances other than those prescribed or required for medical reasons: Unknown Advance Directives: No Do you have a plan to hurt others: No Plan service: No Current occupational status: disabled Sexual orientation: Straight/Heterosexual Cognitive needs: Yes Hearing needs: Yes Vision needs: Yes Physical Exam Vital Signs: Vital Signs: Last Vital Signs Temp 97.2 F 05/12/24 11:41 Pulse 111 H 05/12/24 11:41 Resp 20 05/12/24 11:41 BP 157/55 H 05/12/24 13:08 Pulse Ox 95 05/12/24 11:41 O2 Del Method Room Air 05/12/24 11:41 BMI result Body Mass Index 39.7 Appearance: Alert elderly female, sitting up in the edge of the bed, rocking back and forth and rubbing her fingers together in her lap. Head: normocephalic, atraumatic. Eyes: Pupils equal, round and reactive to light. ENT: Normal external inspection Neck: Normal inspection. Neck supple. CVS: Normal heart rate and rhythm. Pulses normal. Respiratory: No respiratory distress. Breath sounds normal. Abdomen: Soft and nontender. +BS x4 Skin: Skin warm and dry. Normal skin color. Normal skin turgor. No rashes. Extremities: No lower extremity edema. No joint swelling. Neuro/psych: Awake, alert, unwilling to follow commands, answer questions or engage in interview or physical examination Course Reevaluation(s) Reevaluation #1: Physician observation started at 14:14. Patient placed in physician observation because patient is awaiting CARE team evaluation for the possible need of inpatient psych admission. She is medically cleared. Blood pressure improved without intervention. At the time observation was started patient's vital signs were stable. Patient is alert. CV: RRR and lungs are clear. Will continue to monitor. Time: 14:14 Reevaluation #2: Home medications restarted. She continues to refuse her oral medications. She is currently an inpatient psychiatric bed search. Time: 19:31 Medications Administered Generic Name Dose Route Start Last Admin Trade Name Divya PRN Reason Stop Dose Admin Atorvastatin Calcium 80 mg 05/12/24 15:15 05/12/24 18:07 Atorvastatin Calcium 80 Mg Tablet PO Not Given DAILY [facility] Olanzapine 5 mg 05/12/24 15:15 05/12/24 18:07 Olanzapine 5 Mg Tablet PO Not Given DAILY [facility] Omeprazole 20 mg 05/12/24 15:15 05/12/24 18:07 Omeprazole 20 Mg Capsule. PO Not Given DAILY@0630 [facility] Medical Decision Making Medical Decision Making MDM Narrative: 74-year-old female with history of schizophrenia, bipolar disorder, HTN, HLD, GERD, diabetes, obesity who presents to the ER for evaluation of medication noncompliance, behavior changes. She is reportedly monitored in the community, administered her medications from visiting nurse on Dario's order. She has been noncompliant for an unknown amount of time. On arrival to the ER she is guarded, unwilling to participate. Her initial blood pressure was extremely elevated and she was tachycardic. Did not answer if she had chest pain or headache. Repeat blood pressure was significantly improved without intervention, taken when she was calmer. She was agreeable to blood work. A CBC is normal, urinalysis does not show any evidence of urinary tract infection. Differential Diagnosis Differential Diagnoses: The differential diagnosis associated with the presentation includes substance induced mood disorder, acute psychosis, schizophrenia, schizoaffective disorder, PTSD, bipolar disorder, major depression with psychotic features Admission/Observation Consideration of admission/observation: Escalation of care including admission/observation considered Lab Data MDM Lab Attestation statement: I reviewed the patient's lab results. Normal CBC 05/12/24 13:21 05/12/24 13:21 Labs: Lab Results 05/12/24 05/12/24 Range/Units 12:18 13:21 WBC 6.6 (4.8-10.8) X10*3/uL RBC 4.64 (4.20-5.50) X10*6/uL Hgb 14.6 (12.0-16.0) g/dl Hct 42.5 (37.0-47.0) % MCV 91.6 (80.0-98.0) fL MCH 31.5 (27.0-33.0) pg MCHC 34.4 (31.0-35.0) g/dl RDW 13.2 (11.0-16.0) % Plt Count 165 (160-400) X10*3/uL MPV 9.7 (9.4-12.3) fL Immature Gran % (Auto) 0.3 (0.0-0.4) % Neut % (Auto) 52.7 (45-73) % Lymph % (Auto) 38.9 (20-40) % [place] % (Auto) 4.7 (2-11) % Eos % (Auto) 2.6 (0-4) % Baso % (Auto) 0.8 (0-2) % Lymph # (Auto) 2.6 (1.2-4.9) X10*3/uL [place] # (Auto) 0.3 (0.1-1.2) X10*3/uL Eos # (Auto) 0.2 (0.0-0.4) X10*3/uL Baso # (Auto) 0.1 (0.0-0.2) X10*3/uL Abs Immat Gran (auto) 0.02 (0.00-0.03) X10*3/uL Absolute Neuts (auto) 3.5 (2.0-8.3) x10*3/uL Absolute Nucleated RBC 0.000 (0.0-0.012) X10*3/uL Nucleated RBC % (auto) 0.0 (0.0-0.2) /100WBC Sodium 142 (135-145) mmol/L Potassium 3.6 (3.3-5.1) mmol/L Chloride 109 H (96-108) mmol/L Carbon Dioxide 25 (22-29) mmol/L Anion Gap 12 (12-20) BUN 15 (9-16) mg/dL Creatinine 0.93 (0.5-1.4) mg/dL Estim Creat Clear Calc 54.2 Estimated GFR 59 Random Glucose 100 (60-115) mg/dL Calcium 10.1 (8.4-10.2) mg/dL Magnesium 2.1 (1.6-2.6) mg/dL Total Bilirubin 0.7 (0.0-1.0) mg/dL Direct Bilirubin 0.2 (0.0-0.5) mg/dL AST 22 (5-31) U/L ALT 18 (0-31) U/L Alkaline Phosphatase 82 (39-117) U/L Total Protein 7.4 (6.5-8.0) g/dL Albumin 4.5 (3.5-5.0) g/dL Urine Color Yellow Urine Appearance Clear Urine pH 5.5 (5.0-9.0) Ur Specific [place] 1.010 (1.005-1.025) Urine Protein Trace (Neg-Trace) mg/dL Urine Glucose (UA) Negative (Negative) mg/dL Urine Ketones Negative (Negative) mg/dL Urine Blood Negative (Negative) Urine Nitrite Negative (Negative) Ur Leukocyte Esterase Negative (Negative) Urine Opiates Screen Not Detected (Not Detect) Ur Buprenorphine Scrn Not Detected (Not Detect) ng/mL Ur Oxycodone Screen Not Detected (Not Detect) ng/mL Urine Methadone Screen Not Detected (Not Detect) ng/mL Urine Fentanyl Screen Not Detected (Not Detect) Ur Barbiturates Screen Not Detected (Not Detect) Valproic Acid < 12.5 L (50.0-100.0) mcg/mL Ur Phencyclidine Scrn Not Detected (Not Detect) Ur Amphetamines Screen Not Detected (Not Detect) U Benzodiazepines Scrn Not Detected (Not Detect) Urine Cocaine Screen Not Detected (Not Detect) U Marijuana (THC) Screen Not Detected (Not Detect) Ethyl Alcohol < 10 mg/dL Independent Interpretation I performed an independent interpretation of an: EKG Interpretation: EKG with normal sinus rhythm, ventricular rate 71 beats per minute, normal QTC, no ST segment elevations or depressions. Independent Historian Clinical information obtained from an independent historian. History obtained from or confirmed by: EMS Tests considered The following testing was considered but not selected: Considered CT of the head however she has longstanding psychiatric diagnoses, history of similar presentations according to the Section 12 Prescription Management I considered prescription management with: Other (Antipsychotic, antihypertensive) Chronic Conditions Patient?s care impacted by: Diabetes, Hypertension and Other (Bipolar, schizophrenia) Social Determinants Patient?s care significantly limited by Social Determinants of Health including: Problems related to primary support group Critical Care Time Critical Care Time Critical Care Time: No Discharge Plan Discharge Clinical Impression: Noncompliance with medication regimen Schizophrenia Qualifiers: Schizophrenia type: undifferentiated schizophrenia Qualified Code(s): F20.3 - Undifferentiated schizophrenia Hypertension Qualifiers: Hypertension type: unspecified Qualified Code(s): I10 - Essential (primary) hypertension Patient Disposition: Still a Patient Prescriptions: No Action atorvastatin 80 mg tablet 80 mg PO DAILY Qty: 30 0RF omeprazole 20 mg capsule,delayed release(DR/EC) 20 mg PO DAILY@0630 Qty: 90 3RF nifedipine 60 mg tablet extended release 60 mg PO DAILY Qty: 90 1RF olanzapine 15 mg Tablet,Disintegrating 15 mg PO BEDTIME simethicone 80 mg Tablet,Chewable 80 mg PO NEEDED PRN (Reason: Dyspepsia) docusate sodium [Colace] 100 mg capsule 100 mg PO NEEDED PRN (Reason: Constipation) olanzapine [Zyprexa] 5 mg Tablet 5 mg PO DAILY divalproex 250 mg tablet,delayed release (DR/EC) 250 mg PO BEDTIME latanoprost (PF) 0.005 % drops 1 drp ophthalmic (eye) BEDTIME Rx Instructions: both eyes brimonidine 0.2 % drops 1 drp ophthalmic (eye) BID Rx Instructions: right eye valsartan-hydrochlorothiazide 160-12.5 mg tablet 1 tab PO DAILY Qty: 30 5RF Print Language: Italian
[2024-05-12 12:37] LABS: Appearance Urine Clear; Color Urine Yellow; Glucose Urine UA Negative (Negative); Leukocyte Esterase Urine Negative (Negative); Nitrite Urine Negative (Negative); PH 5.5 (5.0-9.0); Urine Blood Negative (Negative); Urine Ketones Negative (Negative); Urine Protein Trace mg/dL (Neg-Trace)
[2024-05-12 12:53] LABS: Amphetamine Screen Urine Not Detected (Not Detect); Barbiturates, Urine Not Detected (Not Detect); Benzodiazepines Screen Urine Not Detected (Not Detect); Buprenorphine Scr Not Detected (Not Detect); Cannabinoid Screen Urine Not Detected (Not Detect); Cocaine Screen Urine Not Detected (Not Detect); Fentanyl, urine Not Detected (Not Detect); Methadone Screen, Urine Not Detected (Not Detect); Opiate Screen Urine Not Detected (Not Detect); Oxycodone Screen Urine Not Detected (Not Detect); Phencyclidine Screen Urine Not Detected (Not Detect)
[2024-05-12 13:08] VITALS: BP 157/55
[2024-05-12 13:27] LABS: MANUAL DIFF FLAG NO
[2024-05-12 13:28] LABS: Basophils Absolute Auto 0.1 X10*3/uL (0.0-0.2); Basophils Percent Auto 0.8 % (0-2); Eosinophils Absolute Auto 0.2 X10*3/uL (0.0-0.4); Eosinophils Percent Auto 2.6 % (0-4); Hematocrit 42.5 % (37.0-47.0); Hemoglobin 14.6 g/dl (12.0-16.0); Imm Gran Abs Auto 0.02 X10*3/uL (0.00-0.03); Imm Gran Pct Auto 0.3 % (0.0-0.4); Lymphocytes Absolute Auto 2.6 X10*3/uL (1.2-4.9); Lymphocytes Percent Auto 38.9 % (20-40); Mean Corpuscular HGB Conc 34.4 g/dl (31.0-35.0); Mean Corpuscular Hemoglobin 31.5 pg (27.0-33.0); Mean Corpuscular Volume 91.6 fL (80.0-98.0); Mean Platelet Volume 9.7 fL (9.4-12.3); Monocytes Absolute Auto 0.3 X10*3/uL (0.1-1.2); Monocytes Percent Auto 4.7 % (2-11); Neutrophils Absolute Auto 3.5 x10*3/uL (2.0-8.3); Neutrophils Percent Auto 52.7 % (45-73); Platelet Count 165 X10*3/uL (160-400); Red Blood Count 4.64 X10*6/uL (4.20-5.50); Red Cell Distribution Width 13.2 % (11.0-16.0); White Blood Count 6.6 X10*3/uL (4.8-10.8)
--- NOTE | 2024-05-12 13:35 | ECG_ITS ---
Test Reason : TACHYCARDIA Blood Pressure : / mmHG Vent. Rate : 071 BPM Atrial Rate : 071 BPM P-R Int : 174 ms QRS Dur : 072 ms QT Int : 390 ms P-R-T Axes : 055 012 044 degrees QTc Int : 423 ms Normal sinus rhythm Normal ECG When compared with ECG of 01-OCT-2023 17:09, No significant change was found Referred By: Linn Chapin Electronically Signed By:ANTHONY WELCH
[2024-05-12 14:08] LABS: Ethanol < 10 mg/dL; Valproate < 12.5 mcg/mL (50.0-100.0)
[2024-05-12 14:09] LABS: Alanine Aminotransferase 18 U/L (0-31); Albumin Level 4.5 g/dL (3.5-5.0); Alkaline Phosphatase 82 U/L (39-117); Anion Gap 12 (12-20); Aspartate Amino Transferase 22 U/L (5-31); Bilirubin Direct 0.2 mg/dL (0.0-0.5); Bilirubin Total 0.7 mg/dL (0.0-1.0); Blood Urea Nitrogen 15 mg/dL (9-16); Calcium 10.1 mg/dL (8.4-10.2); Carbon Dioxide 25 mmol/L (22-29); Chloride 109 mmol/L (96-108); Creatinine Clr Calc Pharmacy 54.2; Estimated Glomerular Filt Rate 59; Glucose Random 100 mg/dL (60-115); Magnesium 2.1 mg/dL (1.6-2.6); Potassium 3.6 mmol/L (3.3-5.1); Sodium 142 mmol/L (135-145); Total Protein 7.4 g/dL (6.5-8.0)
--- NOTE | 2024-05-12 14:30 | PC.NURSE ---
pt's med rec completed and provider notified
--- NOTE | 2024-05-12 14:48 | PC.NURSE ---
care team is currently speaking with the pt
--- NOTE | 2024-05-12 15:32 | PC.NURSE ---
pt refusing her medications at this time, will try again
--- NOTE | 2024-05-12 16:49 | PC.NURSE ---
attempted to medicated the pt with her medication continuos on refusing
--- NOTE | 2024-05-12 19:27 | PC.NURSE ---
patient appears to remain able to get at least some of her needs met, tried to get a phone call done earlier, appears in no distress presently.
[2024-05-12 21:00] VITALS: BP 158/80; PULSE 75; RESP 16; TEMP 36.1; O2SAT 99
[2024-05-13 01:06] VITALS: BP 201/92; PULSE 77; RESP 18; TEMP 36.4; O2SAT 99
--- NOTE | 2024-05-13 01:35 | PC.NURSE ---
Vital @ 0106 hrs 201/92, HR 77, 16 non labored. Provider aware.
--- NOTE | 2024-05-13 05:39 | PC.NURSE ---
Addendum entered by Traci Martini RN 05/13/24 05:53: Safety checks are ongoing every 15 minutes. Original Note: Took report from off-going RN at 2300 hrs. Pt is a 74 y/o female who presented to the ED via EMS from a [facility] for evaluation of non-med compliance. Can become impulsive and aggressive at times. Is on a Dario's Order. At home, is not allowing VNA in the house and ? ability to care for herself. Pt has been restless and OOB frequently to sit in a chair near nurse's station. Pt is calm and cooperative, appropriate with staff. Independent with ambulation with a steady gait. Uses the bathroom as needed. Denies any needs or wants at this time. Initital section 12 indicates history of dementia, but not confirmed. Pt has been evaluated by care team, is on a section 12, and a bed search is ongoing. Will continue to monitor for any changes.
[2024-05-13 14:55] VITALS: BP 172/85; PULSE 79; RESP 20; TEMP 36.3; O2SAT 100
[2024-05-13 22:23] VITALS: RESP 20
--- NOTE | 2024-05-14 04:12 | MHC.EDTECH ---
pt incontinent with a small amount of urine. linen changed, pt showered.
[2024-05-14 05:52] VITALS: BP 192/72; PULSE 84; RESP 16; TEMP 36.2; O2SAT 98
--- NOTE | 2024-05-14 08:05 | PHA.MEDREC ---
Pharmacy Consult ? Medication Reconciliation Pharmacy has reviewed the medication reconciliation done by nursing.
--- NOTE | 2024-05-14 08:42 | PC.NURSE ---
Pt refusing all her meds, will not take them.
--- NOTE | 2024-05-14 09:38 | MHC.CARE ---
The RAD Team completed a [facility] wide [facility] bed search for this individual. The referral was faxed to [facility] (notified bed already filled). [facility], [facility], [facility], [place], [facility] and [facility] have no beds available. The bed search is exhausted for today. Care Team notified.
[2024-05-14 16:19] VITALS: RESP 16
--- NOTE | 2024-05-14 19:07 | MHC.EDTECH ---
Patient refused vitals ,RN aware .
[2024-05-14] MEDS: OLANZapine 7.5 MG TABLET 15 MG PO (20:30)
[2024-05-14 20:32] VITALS: BP 188/78; RESP 16
[2024-05-14] MEDS: Valsartan 160 MG TABLET PO (20:32)
[2024-05-14] MEDS: Brimonidine Tartrate 0.2% Oph 5 ML BOTTLE 1 DROP EYE-BOTH (20:33)
[2024-05-15] VITALS (7 sets, daily range): BP systolic 218; BP diastolic 88; PULSE 78; RESP 16–18; O2SAT 97
--- NOTE | 2024-05-15 07:48 | PC.NURSE ---
Assumed care of patient at 0645, patient appears to be in no apparent distress this am. Pt refusing vital signs and care from staff stating that she does not need anything. Pt educated on importance of monitoring her blood pressure, she continues to refuse. Continue plan of care for inpatient bedsearch at this time
--- NOTE | 2024-05-15 08:22 | PC.NURSE ---
Patient continue to refuse blood pressure and other vitals. requesting to leave
[2024-05-15] MEDS: Brimonidine Tartrate 0.2% Oph 5 ML BOTTLE 1 DROP EYE-BOTH (09:03)
--- NOTE | 2024-05-15 09:26 | PC.NURSE ---
patient refusing all medications at this time
--- NOTE | 2024-05-15 09:59 | MHC.CARE ---
[facility] bed search was conducted for this patient, however, due to her refusing medication intervention for her BP she has been declined by [facility]. Referral was faxed to [facility], [facility], and [facility]. This search will continue Saturday if deemed appropriate.
--- NOTE | 2024-05-15 12:00 | PC.NURSE ---
Pt continues to refuse medications and refuses all staff interventions at this time
--- NOTE | 2024-05-15 18:57 | PC.NURSE ---
Assumed care of pt. Pt sitting in chair in room, respirations even and unlabored, no acute distress at this time.
[2024-05-15] MEDS: hydroCHLOROthiazide 12.5 MG TABLET PO (19:32)
--- NOTE | 2024-05-15 19:34 | PC.NURSE ---
Per provider RAHEEM Huffman, ok to give meds for SBP off schedule d/t pt refusal to take at scheduled times.
--- NOTE | 2024-05-15 19:58 | PC.NURSE ---
Pt in bathroom, ambulating with steady gait.
[2024-05-15] MEDS: Valsartan 160 MG TABLET PO (20:31)
[2024-05-15] MEDS: Divalproex Sodium 250 MG TABLET.DR PO (20:31)
[2024-05-15] MEDS: NIFEdipine ER 60 MG TAB.ER.24 PO (20:31)
--- NOTE | 2024-05-15 20:45 | PC.NURSE ---
Pt refusing to take additional medications orderd besides Depakote and HCTZ. RAHEEM Huffman made aware.
[2024-05-16 05:35] VITALS: RESP 16
[2024-05-16 07:40] VITALS: BP 179/116; PULSE 96; RESP 16; TEMP 36.5; O2SAT 98
--- NOTE | 2024-05-16 08:20 | PC.NURSE ---
Pt continues to refused meds and eyedrops, remains HTN, Dr Valente notified. CARE team suggest psych consult for further eval, Dr Valente aware. Of note: prior RN documented meds given last night on this morning time slot (no meds were given today)
--- NOTE | 2024-05-16 10:24 | PC.NURSE ---
Psychiatry here to eval
--- NOTE | 2024-05-16 10:38 | P.CNPS_ITS ---
History of Present Illness Date of Service: 05/16/2024 Chief Complaint: SEC 12 PER EMS Reason for Consult: Refusal of medications. She is on a Dario's order Requesting physician: Nani Valente Discussed with referring provider: No (Discussed with nursing staff) Sources of Information: patient interviewed and chart reviewed HPI Narrative: 73-year-old female with past medical history significant for diabetes, schizophrenia, depressive type, hypertension, history of GERD, hyperlipidemia presents for evaluation of erratic behavior. She arrives on a section 12 from a assisted facility Per the section 12 the patient has been standing in the hallway and yelling randomly, she has had broken glass in her room and is unable to manage her diabetes care In the ER the patient is calm and cooperative She states that she does not know why she is here or what she wants from us. She states that she has no pain but also complains of a headache She is ambulatory with a steady, even gait She has been refusing her medications for the most part with very occasional intake and initially she was open to taking her antihypertensives but then refused. No major episodes of agitation or aggressive at BT. Past Psychiatric History: H client, dario's order and guardian. Schizoaffective D/O Dx per [facility]: [facility] in 1988, [facility] 2013, [facility] fall 2015. outpt: [facility] Medical Evaluation Reviewed: Yes Review of Systems Review of Systems Yes Unobtainable due to mental status [facility] Medical History Bipolar 1 disorder GERD (gastroesophageal reflux disease) Glaucoma Hyperlipidemia Schatzki's ring Surgical History History of cataract surgery History of section History of total abdominal hysterectomy Family History: unknown Social History: lives in her own apartment. 2 adult children. born in [place]. moved to [place] in 1997. Trauma History: unknown Diagnostics Vital Signs (24Hr): Vital Signs - 24 hr 05/15/24 14:00 05/15/24 19:12 05/15/24 19:32 Temperature Pulse Rate 78 Respiratory Rate 16 18 Blood Pressure 218/88 H 218/88 H Pulse Oximetry 97 Oxygen Delivery Method Room Air 05/15/24 20:31 05/15/24 20:31 05/15/24 21:59 Temperature Pulse Rate Respiratory Rate 18 Blood Pressure 218/88 H 218/88 H Pulse Oximetry Oxygen Delivery Method Room Air 05/16/24 05:35 05/16/24 07:40 Temperature 97.7 F Pulse Rate 96 Respiratory Rate 16 16 Blood Pressure 179/116 H Pulse Oximetry 98 Oxygen Delivery Method Room Air BMI result Body Mass Index 39.7 Labs 05/12/24 13:21 05/12/24 13:21 Mental Status Exam Mental Status Exam Narrative: Patient was seen in the Behavioral pot unit. She is alert and initially was pleasant and cooperative and interactive but quickly escalated into being irritable and angry and got up and left. She appears to be labile with no dangerous behaviors. No overt acute signs of psychosis or delusions but cognitively she appears to be impaired and judgment is impaired Medications Medications Current Medications Atorvastatin Calcium (Atorvastatin Calcium 80 Mg Tablet) 80 mg PO DAILY [facility] Last Admin: 05/16/24 08:18 Dose: Not Given Brimonidine Tartrate (Brimonidine Tartrate 0.2% Oph 5 Ml Bottle) 1 drop EYE- BOTH BID [facility] Last Admin: 05/16/24 08:18 Dose: Not Given Divalproex Sodium (Divalproex Sodium 250 Mg Tablet.) 250 mg PO BEDTIME [facility] Last Admin: 05/15/24 20:31 Dose: 250 mg Docusate Sodium (Docusate Sodium 100 Mg Capsule) 100 mg PO DAILY PRN PRN Reason: Constipation Hydrochlorothiazide (Hydrochlorothiazide 12.5 Mg Tablet) 12.5 mg PO DAILY [facility] Last Admin: 05/15/24 19:32 Dose: 12.5 mg Latanoprost (Latanoprost 0.005 % Ophth Catie 2.5 Ml Drops) 1 drop EYE-BOTH BEDTIME [facility] Last Admin: 05/15/24 20:45 Dose: Not Given Nifedipine (Nifedipine Er 60 Mg Tab.Er.24) 60 mg PO DAILY [facility] Last Admin: 05/15/24 20:31 Dose: 60 mg Olanzapine (Olanzapine 7.5 Mg Tablet) 15 mg PO BEDTIME [facility] Last Admin: 05/15/24 20:45 Dose: Not Given Olanzapine (Olanzapine 5 Mg Tablet) 5 mg PO DAILY [facility] Last Admin: 05/16/24 08:18 Dose: Not Given Omeprazole (Omeprazole 20 Mg Capsule.) 20 mg PO DAILY@0630 [facility] Last Admin: 05/16/24 06:05 Dose: Not Given Simethicone (Simethicone 80 Mg Tab.Chew) 80 mg PO DAILY PRN PRN Reason: Dyspepsia Valsartan (Valsartan 160 Mg Tablet) 160 mg PO DAILY [facility] Last Admin: 05/15/24 20:31 Dose: 160 mg Allergies Allergies Allergy/AdvReac Type Severity Reaction Status Date / Time blueberry [Blueberry] Allergy Severe SWELLING Verified 05/12/24 12:03 lisinopril Allergy Intermediate cough Verified 05/12/24 12:03 mushroom Allergy Intermediate SWELLING Verified 05/12/24 12:03 shellfish derived Allergy Unknown UNKNOWN Verified 05/12/24 12:03 [SHELLFISH DERIVED] thioridazine Allergy Unknown Unknown Verified 05/12/24 12:03 tomato [TOMATO] Allergy Unknown UNKNOWN Verified 05/12/24 12:03 CHOCOLATE Allergy Intermediate ITCHING Uncoded 03/20/24 10:09 From MELLARIL Allergy Intermediate SHORTNESS Uncoded 03/20/24 10:09 OF BREATH From THORAZINE Allergy Intermediate SHORTNESS Uncoded 03/20/24 10:09 OF BREATH Assessment & Plan Assessment & Plan (1) Schizophrenia: Qualifiers: Schizophrenia type: undifferentiated schizophrenia Qualified Code(s): F 20.3 - Undifferentiated schizophrenia Status: Acute Code(s): F20.9 - Schizophrenia, unspecified Plan She is awaiting a bed search. In the meanwhile if she exhibits major aggressive or behavioral problems Zyprexa 5 mg IM q.6 hours p.r.n. can be given. I would try to avoid using benzodiazepines but if necessary 0.5 mg Ativan q.4 hours p.r.n. can be tried. Total time managing care of this patient today _40___ minutes. Patient educated on: medication risk/benefits
--- NOTE | 2024-05-16 13:05 | PC.NURSE ---
pt yelling out asking for food, requesting to go home. pt redirectable at this time. Sect [address], plan for [facility] admission.
--- NOTE | 2024-05-16 15:04 | PC.NURSE ---
RN-RN report given, pt declined afternoon vitals stating they were taken this morning, pt educated on importance and cont'd to decline.
[2024-05-16 18:15] VITALS: BMI 36.2
[2024-05-16 18:16] VITALS: PULSE 111; RESP 18; TEMP 36.8; O2SAT 98
--- NOTE | 2024-05-16 18:27 | PC.ADMIT ---
Reji was admitted to at 1700 from the pod on a 12B or treatment of decompensated dementia/schizophrenia. She is unable to respond to admission questions due to her cognitive decline. She presents with largely nonsensical speech and is also extremely difficult to understand, due in part to her lack of teeth. She lives in a [facility] supported apartment with a community [place] order per crisis eval. She was not allowing her visiting nurse into her home and decompensated in the community. When presented with contraband list she circled the items she would like to have. She is somewhat cooperative with the admission process but is unable to respond appropriately to questions. Her tox screen is negative She denies current SI/HI/AVH, but generally says no when asked any questions. She ambulates independently and states that she needs to return home. Skin check was unremarkable. Patient is placed on 15 minute checks for safety.?
--- NOTE | 2024-05-16 18:33 | PC.NURSE ---
Contacted [facility] per pt request. Left voicemail with information about pt's admission to this afternoon.
[2024-05-16 21:55] LABS: Folate 13.7 ng/mL (> or = 4.0); Vitamin B12 1617 pg/mL (200-900)
--- NOTE | 2024-05-17 08:24 | HO.PSYADMNOT ---
HPI Date of Service: 05/17/24 Chief Complaint: decompensated dementia Sources of Information: patient interviewed, chart reviewed and crisis/core team assessment reviewed HPI Subjective Notes: Maeir Warning and Section 12B Narrative: Patient seen at 0900 Patient is a 74-year-old woman with history of schizoaffective disorder (versus schizophrenia), on a Community [facility], diabetes, hypertension, RLS, GERD who presents to the ED, sent by outpatient nurse for disorganized behavior, yelling in the hallway, broken glass in her room, unable to manage her diabetic care and concern for inability to care for self. It is unclear to what extent patient has been noncompliant with medication; she has been refusing medication here. Patient is a limited historian and difficult to understand, possibly due to accent verse edentulous. She tells commercial loan underwriter that she has been taking her medications and that she never stopped taking them. Patient says she has been living in [place] for 35 years and she knows she is currently at the [facility]. She denies any current SI; she reports a history of SI but says it was a long time ago. She endorses auditory hallucinations and says they do... But they don't do.. Patient says she does not want to be in the hospital; she wants to discharge tomorrow and says do you know I am not doing anything wrong? I am not dangerous.. And because she has court and on Saturday she has healthcare people that are coming to visit. Past Psychiatric History: [facility] client, kev's order and guardian. Schizoaffective D/O Dx per [facility]: [facility] in 1988, [facility] 2013, [place] fall 2015. outpt: [facility] for [facility] Medical Evaluation Reviewed: Yes [facility] Medical History Bipolar 1 disorder GERD (gastroesophageal reflux disease) Glaucoma Hyperlipidemia Schatzki's ring Surgical History History of cataract surgery History of section History of total abdominal hysterectomy Family History: unknown Social History: lives in her own apartment. 2 adult children. born in [place]. moved to [place] in 1997. Substance History: Deferred Trauma History: unknown Diagnostics Vital Signs (24Hr): Vital Signs - 24 hr 09/21/24 18:16 Temperature 98.2 F Pulse Rate 111 H Respiratory Rate 18 Pulse Oximetry 98 Oxygen Delivery Method Room Air BMI result Body Mass Index 36.2 Labs 05/12/24 13:21 05/12/24 13:21 Labs: Laboratory Results - last 48 hr 05/16/24 21:01 Vitamin B12 1617 H Folate 13.7 Meds/Allergies Meds Home Medications ?Medication ?Instructions ?Recorded ?Confirmed ?Type divalproex 250 mg tablet,delayed 250 mg PO BEDTIME 07/09/20 05/12/24 History release latanoprost (PF) 0.005 % eye drops 1 drp ophthalmic (eye) BEDTIME 11/24/20 05/12/24 History brimonidine 0.2 % eye drops 1 drp ophthalmic (eye) BID 06/01/22 05/12/24 History olanzapine 15 mg disintegrating 15 mg PO BEDTIME 10/02/23 05/12/24 History tablet simethicone 80 mg chewable tablet 80 mg PO NEEDED PRN Dyspepsia 10/02/23 05/12/24 History docusate sodium 100 mg capsule 100 mg PO DAILY PRN Constipation 05/12/24 05/14/24 History (Colace) olanzapine 5 mg tablet (Zyprexa) 5 mg PO DAILY 05/12/24 05/12/24 History Allergies Allergies Allergy/AdvReac Type Severity Reaction Status Date / Time blueberry [Blueberry] Allergy Severe SWELLING Verified 05/12/24 12:03 lisinopril Allergy Intermediate cough Verified 05/12/24 12:03 mushroom Allergy Intermediate SWELLING Verified 05/12/24 12:03 shellfish derived Allergy Unknown UNKNOWN Verified 05/12/24 12:03 [SHELLFISH DERIVED] thioridazine Allergy Unknown Unknown Verified 05/12/24 12:03 tomato [TOMATO] Allergy Unknown UNKNOWN Verified 05/12/24 12:03 CHOCOLATE Allergy Intermediate ITCHING Uncoded 03/20/24 10:09 From MELLARIL Allergy Intermediate SHORTNESS Uncoded 03/20/24 10:09 OF BREATH From THORAZINE Allergy Intermediate SHORTNESS Uncoded 03/20/24 10:09 OF BREATH Mental Status Exam Mental Status Exam Narrative: Pt is alert and oriented; behavior is cooperative, a little guarded but mostly friendly and calm; patient is not in distress; dressed in casual attire with overall adequate hygiene; mood is described as good and affect congruent, maybe a little constricted; eye contact appropriate; Speech is difficult to understand given accent (vs edentulous) but is spontaneous; seems to be normal rate, volume and prosody and not pressured; currently no psychomotor agitation/retardation present; thought process seems goal directed; Thought content is on discharge; not sure if delusional content present; denies any SI/HI. Reports AH Patients insight and judgment impaired Assessment & Plan Assessment & Plan (1) Schizophrenia: Status: Acute Qualifiers: Schizophrenia type: undifferentiated schizophrenia Qualified Code(s): F20.3 - Undifferentiated schizophrenia Code(s): F20.9 - Schizophrenia, unspecified (2) Type 2 diabetes mellitus with hyperglycemia: Status: Acute Qualifiers: Diabetes mellitus fdc insulin use: without predatory animal exterminator use Qualified Code(s): E11.65 - Type 2 diabetes mellitus with hyperglycemia Code(s): E11.65 - Type 2 diabetes mellitus with hyperglycemia (3) HTN (hypertension): Status: Acute Qualifiers: Hypertension type: essential hypertension Qualified Code(s): I10 - Essential (primary) hypertension Code(s): I10 - Essential (primary) hypertension Plan Patient is a 74-year-old woman with history of schizoaffective disorder (versus schizophrenia), on a [facility], diabetes, hypertension, RLS, GERD who presents to the ED, sent by outpatient nurse for disorganized behavior, yelling in the hallway, broken glass in her room, unable to manage her diabetic care and concern for inability to care for self. It is unclear to what extent patient has been noncompliant with medication; she has been refusing medication here. Patient is a limited historian and difficult to understand, possibly due to accent verse edentulous. She tells commercial loan underwriter that she has been taking her medications and that she never stopped taking them. Patient says she has been living in [place] for 35 years and she knows [facility]. She denies any current SI; she reports a history of SI but says it was a long time ago. She endorses auditory hallucinations and says they do... But they don't do.. Patient says she does not want to be in the hospital; she wants to discharge tomorrow and says do you know I am not doing anything wrong? I am not dangerous.. And because she has court and on Saturday she has healthcare people that are coming to visit. Formulation/clinical reasoning: Patient has long history of psychotic illness, works with [facility], history of past psychiatric hospitalizations. Community reports that patient has decompensated and is dysregulated. She mostly calm here but continues to refuse medications and SBP>200. She is on Jack order, however commercial loan underwriter does not have the document so will continue to offer her medications. Today, after she initially refused medication she later on agreed to take her Zyprexa and nifedipine. Will need collateral -tardive dyskinesia at baseline -at baseline still has poor self-care. Plan: Twelve B Q 15 minute checks Continue home medications Procure Jack order Gather collateral Patient educated on: diagnosis, medication risk/benefits and medical condition Informed Consent: does not understand Reason for continued inpatient stay Substantial Risk for: inability to function Statement Statement: I have reviewed the history and physical and performed a pertinent examination on my patient. No changes have occurred unless specified. If the History and Physical was not performed prior to admission, the Hospitalist's service will be consulted for completing the admission physical. Time Spent With Patient Time: Total time managing care of this patient today ____ minutes.
[2024-05-17 08:28] VITALS: BP 172/78; PULSE 97; RESP 16; TEMP 36.9; O2SAT 98
[2024-05-17] MEDS: NIFEdipine ER 60 MG TAB.ER.24 PO (10:02)
[2024-05-17] MEDS: OLANZapine 5 MG TABLET PO (10:02)
[2024-05-17] MEDS: Brimonidine Tartrate 0.2% Oph 5 ML BOTTLE 1 DROP EYE-BOTH (17:06)
[2024-05-17] MEDS: Divalproex Sodium 250 MG TABLET.DR PO (20:43)
[2024-05-17] MEDS: OLANZapine 7.5 MG TABLET 15 MG PO (20:44)
--- NOTE | 2024-05-18 06:45 | PC.NURSE ---
Patient refused a.m. Prilosec. However, she might take it later, when she is more awake.
[2024-05-18 08:00] VITALS: RESP 18
--- NOTE | 2024-05-18 12:02 | P.PNPSI_ITS ---
Subjective Subjective Date of Service: 05/18/24 Reason For Visit: decompensated dementia Interim History: met with patient; discussed with team Patient remains difficult with which to engage, hard to understand; says she wants to go; says she does not want medications and is refusing most, including antihypertensives and glaucoma eyedrops. Sometimes taking partial doses of Zyprexa Mental Status Exam Mental Status Exam Narrative: Pt is alert and oriented; behavior is mostly cooperative, a little guarded but is also friendly and calm; patient is not in distress; dressed in casual attire with overall adequate hygiene; mood is described as good and affect congruent, maybe a little constricted; eye contact appropriate; Speech is difficult to understand (given accent/edentulous/TD) but is spontaneous and normal rate, volume and prosody and not pressured; currently no psychomotor agitation/retardation present; thought process seems goal directed; Thought content is on discharge; not sure if delusional content present; denies any SI/HI. Reports AH Patients insight and judgment impaired Diagnostics Vital Signs (24Hr): BMI result Body Mass Index 36.2 Labs 05/12/24 13:21 05/12/24 13:21 Labs: Laboratory Results - last 48 hr 05/16/24 21:01 Vitamin B12 1617 H Folate 13.7 Medications Medications Current Medications Acetaminophen (Acetaminophen 325 Mg Tablet) 650 mg PO Q6H PRN PRN Reason: Headache/Pain Mild Scale (1-3) Al Hydroxide/Mg Hydroxide (Magnesium Hydrox/Alum Hydrox 30 Ml Oral.Susp) 30 ml PO Q6H PRN PRN Reason: Heartburn/Nausea Atorvastatin Calcium (Atorvastatin Calcium 80 Mg Tablet) 80 mg PO DAILY [facility] Last Admin: 05/18/24 09:14 Dose: Not Given Brimonidine Tartrate (Brimonidine Tartrate 0.2% Oph 5 Ml Bottle) 1 drop EYE- BOTH BID [facility] Last Admin: 05/18/24 09:14 Dose: Not Given Divalproex Sodium (Divalproex Sodium 250 Mg Tablet.) 250 mg PO BEDTIME [facility] Last Admin: 05/17/24 20:43 Dose: 125 mg Docusate Sodium (Docusate Sodium 100 Mg Capsule) 100 mg PO DAILY PRN PRN Reason: Constipation Hydrochlorothiazide (Hydrochlorothiazide 12.5 Mg Tablet) 12.5 mg PO DAILY [facility] Last Admin: 05/18/24 09:15 Dose: Not Given Latanoprost (Latanoprost 0.005 % Ophth Catie 2.5 Ml Drops) 1 drop EYE-BOTH BEDTIME [facility] Last Admin: 05/17/24 20:36 Dose: Not Given Magnesium Hydroxide (Milk Of Magnesia 30 Ml Oral.Susp) 30 ml PO DAILY PRN PRN Reason: Constipation Nicotine (Nicotine 21 Mg Patch.Td24) 21 mg TRANSDERMA DAILY PRN PRN Reason: smoking cessation Nicotine Polacrilex (Nicotine Polacrilex 2 Mg Gum) 4 mg BUCCAL Q2H PRN PRN Reason: Nicotine Cravings Nifedipine (Nifedipine Er 60 Mg Tab.Er.24) 60 mg PO DAILY [facility] Last Admin: 05/18/24 09:15 Dose: Not Given Olanzapine (Olanzapine 7.5 Mg Tablet) 15 mg PO BEDTIME [facility] Last Admin: 05/17/24 20:44 Dose: 7.5 mg Olanzapine (Olanzapine 5 Mg Tablet) 5 mg PO DAILY [facility] Last Admin: 05/18/24 09:15 Dose: Not Given Omeprazole (Omeprazole 20 Mg Capsule.Dr) 20 mg PO DAILY@0630 [facility] Last Admin: 05/18/24 06:45 Dose: Not Given Simethicone (Simethicone 80 Mg Tab.Chew) 80 mg PO DAILY PRN PRN Reason: Dyspepsia Trazodone HCl (Trazodone Hcl 50 Mg Tablet) 50 mg PO BEDTIME MRX1 PRN PRN Reason: Insomnia Valsartan (Valsartan 160 Mg Tablet) 160 mg PO DAILY [facility] Last Admin: 05/18/24 09:26 Dose: Not Given Allergies Allergies Allergy/AdvReac Type Severity Reaction Status Date / Time blueberry [Blueberry] Allergy Severe SWELLING Verified 05/12/24 12:03 lisinopril Allergy Intermediate cough Verified 05/12/24 12:03 mushroom Allergy Intermediate SWELLING Verified 05/12/24 12:03 shellfish derived Allergy Unknown UNKNOWN Verified 05/12/24 12:03 [SHELLFISH DERIVED] thioridazine Allergy Unknown Unknown Verified 05/12/24 12:03 tomato [TOMATO] Allergy Unknown UNKNOWN Verified 05/12/24 12:03 CHOCOLATE Allergy Intermediate ITCHING Uncoded 03/20/24 10:09 From MELLARIL Allergy Intermediate SHORTNESS Uncoded 03/20/24 10:09 OF BREATH From THORAZINE Allergy Intermediate SHORTNESS Uncoded 03/20/24 10:09 OF BREATH Assessment & Plan Assessment & Plan (1) Schizophrenia: Qualifiers: Schizophrenia type: undifferentiated schizophrenia Qualified Code(s): F 20.3 - Undifferentiated schizophrenia Status: Acute Code(s): F20.9 - Schizophrenia, unspecified (2) Type 2 diabetes mellitus with hyperglycemia: Qualifiers: 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[employer] insulin use: without prison use Q ualified Code(s): E11.65 - Type 2 diabetes mellitus with hyperglycemia Status: Acute Code(s): E11.65 - Type 2 diabetes mellitus with hyperglycemia (3) HTN (hypertension): Qualifiers: Hypertension type: essential hypertension Qualified Code(s): I10 - Essential (primary) hypertension Status: Acute Code(s): I10 - Essential (primary) hypertension Plan Patient is a 74-year-old woman with history of schizoaffective disorder (versus schizophrenia), on a [facility], diabetes, hypertension, RLS, GERD who presents to the ED, sent by outpatient nurse for disorganized behavior, yelling in the hallway, broken glass in her room, unable to manage her diabetic care and concern for inability to care for self. It is unclear to what extent patient has been noncompliant with medication; she has been refusing medication here. Patient is a limited historian and difficult to understand, possibly due to accent verse edentulous. She tells information writer that she has been taking her medications and that she never stopped taking them. Patient says she has been living in [place] for 35 years and she knows she is [facility]. She denies any current SI; she reports a history of SI but says it was a long time ago. She endorses auditory hallucinations and says they do... But they don't do.. Patient says she does not want to be in the hospital; she wants to discharge tomorrow and says do you know I am not doing anything wrong? I am not dangerous.. And because she has court and on Saturday she has healthcare people that are coming to visit. Formulation/clinical reasoning: Patient has long history of psychotic illness, works with [employer], history of past psychiatric hospitalizations. Community reports that patient has decompensated and is dysregulated. She mostly calm here but continues to refuse medications and SBP>200. She is on Jack order, however information writer does not have the document so will continue to offer her medications. Today, after she initially refused medication she later on agreed to take her Zyprexa and nifedipine. Will need collateral -tardive dyskinesia at baseline -at baseline still has poor self-care. Hospital course: 05/18 Patient remains difficult with which to engage, hard to understand; says she wants to go; says she does not want medications and is refusing most, including antihypertensives and glaucoma eyedrops. Sometimes taking partial doses of Zyprexa -obtain Jack order expires 09/07/2024 obtained which includes Zyprexa/Zydis home dose 20 mg; up to 50 mg daily; alternatives include Abilify up to 30, Seroquel up to 750, Saphris up to 20 mg -patient not at baseline, refusing essential medications for medical comorbidities; will likely need to file Plan: Twelve B Q 15 minute checks Continue home medications Gather collateral: reports off baseline Jack order (expires 09/07/2024) 1. Primary: Zyprexa/Zydis home dose 20 mg; up to 50 mg daily; 2.alternatives include: Abilify up to 30mg Seroquel up to 750mg Saphris up to 20 mg Patient educated on: diagnosis, medication risk/benefits and medical condition Informed Consent: does not understand Reason for continued inpatient stay Substantial Risk for: inability to function Time Spent With Patient Time: Total time managing care of this patient today ____ minutes.
--- NOTE | 2024-05-19 04:51 | PC.NURSE ---
Patient has full lower denture with her and tonight patient partial was found.
[2024-05-19 08:47] LABS: Ammonia 30 umol/L (13-55)
[2024-05-19 08:55] LABS: Cholesterol 264 mg/dL (<200); HDL Cholesterol 57 mg/dL (>40); LDL Cholesterol Calculated 171 mg/dL (<100); Triglycerides 181 mg/dL (<150)
[2024-05-19 09:42] VITALS: BP 176/81; PULSE 88; RESP 16; TEMP 36.1; O2SAT 99
[2024-05-19] MEDS: NIFEdipine ER 60 MG TAB.ER.24 PO (09:51)
[2024-05-19] MEDS: OLANZapine 5 MG TABLET PO (09:55)
--- NOTE | 2024-05-19 10:59 | PC.NURSE ---
Message received from [facility] UR nurse that Bridgett from [facility] left a message for pt. Pt was provided with contact information. With nurse present, pt called Bridgett from [facility] and left a message.
--- NOTE | 2024-05-19 17:35 | P.PNPSI_ITS ---
Subjective Subjective Date of Service: 05/19/24 Reason For Visit: decompensated dementia Interim History: Met with patient; discussed with team No change in presentation, taking Zyprexa but refusing essential medications for medical comorbidities; no capacity, no insight, insist wants to leave because she has people to see. Mental Status Exam Mental Status Exam Narrative: Pt is alert and oriented; behavior is mostly cooperative, a little guarded but is also friendly and calm; patient is not in distress; dressed in casual attire with overall adequate hygiene; mood is described as i want to go and affect constricted; eye contact appropriate; Speech is difficult to understand (given accent/edentulous/TD) but is spontaneous and normal rate, volume and prosody and not pressured; TD present which is baseline; no psychomotor agitation/retardation present; thought process seems goal directed; Thought content is on discharge; not sure if delusional content present; denies any SI/HI. Reports AH Patients insight and judgment impaired Diagnostics Vital Signs (24Hr): Vital Signs - 24 hr 05/19/24 09:42 Temperature 96.9 F Pulse Rate 88 Respiratory Rate 16 Blood Pressure 176/81 H Pulse Oximetry 99 Oxygen Delivery Method Room Air BMI result Body Mass Index 36.2 Labs 05/12/24 13:21 05/12/24 13:21 Labs: Laboratory Results - last 48 hr 05/19/24 08:16 Ammonia 30 Triglycerides 181 H Cholesterol 264 H LDL Cholesterol, Calc 171 H HDL Cholesterol 57 Medications Medications Current Medications Acetaminophen (Acetaminophen 325 Mg Tablet) 650 mg PO Q6H PRN PRN Reason: Headache/Pain Mild Scale (1-3) Al Hydroxide/Mg Hydroxide (Magnesium Hydrox/Alum Hydrox 30 Ml Oral.Susp) 30 ml PO Q6H PRN PRN Reason: Heartburn/Nausea Atorvastatin Calcium (Atorvastatin Calcium 80 Mg Tablet) 80 mg PO DAILY [facility] Last Admin: 05/19/24 09:48 Dose: Not Given Brimonidine Tartrate (Brimonidine Tartrate 0.2% Oph 5 Ml Bottle) 1 drop EYE- BOTH BID [facility] Last Admin: 05/19/24 09:48 Dose: Not Given Divalproex Sodium (Divalproex Sodium 250 Mg Tablet.Dr) 250 mg PO BEDTIME [facility] Last Admin: 05/18/24 22:04 Dose: Not Given Docusate Sodium (Docusate Sodium 100 Mg Capsule) 100 mg PO DAILY PRN PRN Reason: Constipation Hydrochlorothiazide (Hydrochlorothiazide 12.5 Mg Tablet) 12.5 mg PO DAILY [facility] Last Admin: 05/19/24 09:48 Dose: Not Given Latanoprost (Latanoprost 0.005 % Ophth Catie 2.5 Ml Drops) 1 drop EYE-BOTH BEDTIME [facility] Last Admin: 05/18/24 22:05 Dose: Not Given Magnesium Hydroxide (Milk Of Magnesia 30 Ml Oral.Susp) 30 ml PO DAILY PRN PRN Reason: Constipation Nicotine (Nicotine 21 Mg Patch.Td24) 21 mg TRANSDERMA DAILY PRN PRN Reason: smoking cessation Nicotine Polacrilex (Nicotine Polacrilex 2 Mg Gum) 4 mg BUCCAL Q2H PRN PRN Reason: Nicotine Cravings Nifedipine (Nifedipine Er 60 Mg Tab.Er.24) 60 mg PO DAILY [facility] Last Admin: 05/19/24 09:51 Dose: 60 mg Olanzapine (Olanzapine 7.5 Mg Tablet) 15 mg PO BEDTIME [facility] Last Admin: 05/18/24 22:05 Dose: Not Given Olanzapine (Olanzapine 5 Mg Tablet) 5 mg PO DAILY [facility] Last Admin: 05/19/24 09:55 Dose: 5 mg Omeprazole (Omeprazole 20 Mg Capsule.Dr) 20 mg PO DAILY@0630 [facility] Last Admin: 05/19/24 06:38 Dose: Not Given Simethicone (Simethicone 80 Mg Tab.Chew) 80 mg PO DAILY PRN PRN Reason: Dyspepsia Trazodone HCl (Trazodone Hcl 50 Mg Tablet) 50 mg PO BEDTIME MRX1 PRN PRN Reason: Insomnia Valsartan (Valsartan 160 Mg Tablet) 160 mg PO DAILY [facility] Last Admin: 05/19/24 09:49 Dose: Not Given Allergies Allergies Allergy/AdvReac Type Severity Reaction Status Date / Time blueberry [Blueberry] Allergy Severe SWELLING Verified 05/12/24 12:03 lisinopril Allergy Intermediate cough Verified 05/12/24 12:03 mushroom Allergy Intermediate SWELLING Verified 05/12/24 12:03 shellfish derived Allergy Unknown UNKNOWN Verified 05/12/24 12:03 [SHELLFISH DERIVED] thioridazine Allergy Unknown Unknown Verified 05/12/24 12:03 tomato [TOMATO] Allergy Unknown UNKNOWN Verified 05/12/24 12:03 CHOCOLATE Allergy Intermediate ITCHING Uncoded 03/20/24 10:09 From MELLARIL Allergy Intermediate SHORTNESS Uncoded 03/20/24 10:09 OF BREATH From THORAZINE Allergy Intermediate SHORTNESS Uncoded 03/20/24 10:09 OF BREATH Assessment & Plan Assessment & Plan (1) Schizophrenia: Qualifiers: Schizophrenia type: undifferentiated schizophrenia Qualified Code(s): F 20.3 - Undifferentiated schizophrenia Status: Acute Code(s): F20.9 - Schizophrenia, unspecified (2) Type 2 diabetes mellitus with hyperglycemia: Qualifiers: Diabetes mellitus 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 Q ualified Code(s): E11.65 - Type 2 diabetes mellitus with hyperglycemia Status: Acute Code(s): E11.65 - Type 2 diabetes mellitus with hyperglycemia (3) HTN (hypertension): Qualifiers: Hypertension type: essential hypertension Qualified Code(s): I10 - Essential (primary) hypertension Status: Acute Code(s): I10 - Essential (primary) hypertension Plan Patient is a 74-year-old woman with history of schizoaffective disorder (versus schizophrenia), on a [facility], diabetes, hypertension, RLS, GERD who presents to the ED, sent by outpatient nurse for disorganized behavior, yelling in the hallway, broken glass in her room, unable to manage her diabetic care and concern for inability to care for self. It is unclear to what extent patient has been noncompliant with medication; she has been refusing medication here. Patient is a limited historian and difficult to understand, possibly due to accent verse edentulous. She tells senior underwriter that she has been taking her medications and that she never stopped taking them. Patient says she has been living in [place] for 35 years and she knows she is currently at [facility]. She denies any current SI; she reports a history of SI but says it was a long time ago. She endorses auditory hallucinations and says they do... But they don't do.. Patient says she does not want to be in the hospital; she wants to discharge tomorrow and says do you know I am not doing anything wrong? I am not dangerous.. And because she has court and on Saturday she has healthcare people that are coming to visit. Formulation/clinical reasoning: Patient has long history of psychotic illness, works with [employer], history of past psychiatric hospitalizations. Community reports that patient has decompensated and is dysregulated. She mostly calm here but continues to refuse medications and SBP>200. She is on Jack order, however senior underwriter does not have the document so will continue to offer her medications. Today, after she initially refused medication she later on agreed to take her Zyprexa and nifedipine. Will need collateral -tardive dyskinesia at baseline -at baseline still has poor self-care. Hospital course: 05/18 Patient remains difficult with which to engage, hard to understand; says she wants to go; says she does not want medications and is refusing most, including antihypertensives and glaucoma eyedrops. Sometimes taking partial doses of Zyprexa -obtain Jack order expires 09/07/2024 obtained which includes Zyprexa/Zydis home dose 20 mg; up to 50 mg daily; alternatives include Abilify up to 30, Seroquel up to 750, Saphris up to 20 mg -patient not at baseline, refusing essential medications for medical comorbidities; will likely need to file 05/19 No change in presentation, slept only 2 hours last night taking Zyprexa but refusing essential medications for medical comorbidities; no capacity, no insight, insist wants to leave because she has people to see. -social work talked with LASHON who reports patient has been spitting out medications Remains in hypertensive urgency Plan: Twelve B Q 15 minute checks Zyprexa 5mg daily (court ordered/community Jack; give Zyprexa IM if refuses p.o.) Zyprexa/zydis 15mg qhs (court ordered/[facility]; give Zyprexa IM if refuses p.o.) Zyprexa IM 5mg (give if refuses PO Zyprexa) Otherwise Continue home medications Gather collateral: reports off baseline Jack order (expires 09/07/2024) 1. Primary: Zyprexa/Zydis total home dose 20 mg; up to 50 mg daily; 2.alternatives include: Abilify up to 30mg Seroquel up to 750mg Saphris up to 20 mg Patient educated on: diagnosis, medication risk/benefits and medical condition Informed Consent: does not understand Reason for continued inpatient stay Substantial Risk for: inability to function Time Spent With Patient Time: Total time managing care of this patient today ____ minutes.
[2024-05-19 20:00] VITALS: BP 169/87; PULSE 88; RESP 16; TEMP 36.4; O2SAT 98
[2024-05-19] MEDS: Divalproex Sodium 250 MG TABLET.DR PO (20:45)
[2024-05-19] MEDS: OLANZapine 7.5 MG TABLET 15 MG PO (20:49)
[2024-05-20] MEDS: Omeprazole 20 MG CAPSULE.DR PO (06:46)
[2024-05-20 08:00] VITALS: BP 184/96; PULSE 111; RESP 16; TEMP 36.4; O2SAT 97
[2024-05-20] MEDS: OLANZapine 5 MG TABLET PO (08:39)
[2024-05-20] MEDS: NIFEdipine ER 60 MG TAB.ER.24 PO (08:39)
--- NOTE | 2024-05-20 14:19 | PC.NURSE ---
As of 05/20/24 the pt is now a section 7.
--- NOTE | 2024-05-20 18:38 | P.PNPSI_ITS ---
Subjective Subjective Date of Service: 05/20/24 Reason For Visit: decompensated dementia Interim History: Met with patient; discussed with team Patient today said she needs to go home to meet someone. She tells speech writer that she is ... and has a baby in her belly...She then says God is telling her to get . [employer] discussed very concerning hypertension and refusal of glaucoma eye medications. She says that the blood pressure meds other wrong medications (she is only willing to take nifedipine, though she is on several other antihypertensives); she says that the glaucoma eyedrops make her eye sensitive and she does not like them. Stone Polisher Hand tried to provide education as to the risks of refusing these 2 categories of medications however patient was unable to understand. Mental Status Exam Mental Status Exam Narrative: Pt is alert and oriented; behavior is mostly cooperative, a little guarded but is also friendly and calm; patient is not in distress; dressed in casual attire with overall adequate hygiene; mood is described as good and affect constricted; eye contact appropriate; Speech is difficult to understand (given accent/edentulous/TD) but is spontaneous and normal rate, volume and prosody and not pressured; TD present which is baseline; no psychomotor agitation/retardation present; thought process seems goal directed; Thought content is on discharge; not sure if delusional content present; denies any SI/HI. Reports AH Patients insight and judgment impaired Diagnostics Vital Signs (24Hr): Vital Signs - 24 hr 05/19/24 20:00 05/20/24 08:00 Temperature 97.6 F 97.6 F Pulse Rate 88 111 H Respiratory Rate 16 16 Blood Pressure 169/87 H 184/96 H Pulse Oximetry 98 97 Oxygen Delivery Method Room Air Room Air BMI result Body Mass Index 36.2 Labs 05/12/24 13:21 05/12/24 13:21 Labs: Laboratory Results - last 48 hr 05/19/24 08:16 Ammonia 30 Triglycerides 181 H Cholesterol 264 H LDL Cholesterol, Calc 171 H HDL Cholesterol 57 Medications Medications Current Medications Acetaminophen (Acetaminophen 325 Mg Tablet) 650 mg PO Q6H PRN PRN Reason: Headache/Pain Mild Scale (1-3) Al Hydroxide/Mg Hydroxide (Magnesium Hydrox/Alum Hydrox 30 Ml Oral.Susp) 30 ml PO Q6H PRN PRN Reason: Heartburn/Nausea Atorvastatin Calcium (Atorvastatin Calcium 80 Mg Tablet) 80 mg PO DAILY [facility] Last Admin: 05/20/24 08:44 Dose: Not Given Brimonidine Tartrate (Brimonidine Tartrate 0.2% Oph 5 Ml Bottle) 1 drop EYE- BOTH BID [facility] Last Admin: 05/20/24 08:44 Dose: Not Given Divalproex Sodium (Divalproex Sodium 250 Mg Tablet.) 250 mg PO BEDTIME [facility] Last Admin: 05/19/24 20:45 Dose: 250 mg Docusate Sodium (Docusate Sodium 100 Mg Capsule) 100 mg PO DAILY PRN PRN Reason: Constipation Hydrochlorothiazide (Hydrochlorothiazide 12.5 Mg Tablet) 12.5 mg PO DAILY [facility] Last Admin: 05/20/24 08:44 Dose: Not Given Latanoprost (Latanoprost 0.005 % Ophth Catie 2.5 Ml Drops) 1 drop EYE-BOTH BEDTIME [facility] Last Admin: 05/19/24 22:26 Dose: Not Given Magnesium Hydroxide (Milk Of Magnesia 30 Ml Oral.Susp) 30 ml PO DAILY PRN PRN Reason: Constipation Nicotine (Nicotine 21 Mg Patch.Td24) 21 mg TRANSDERMA DAILY PRN PRN Reason: smoking cessation Nicotine Polacrilex (Nicotine Polacrilex 2 Mg Gum) 4 mg BUCCAL Q2H PRN PRN Reason: Nicotine Cravings Nifedipine (Nifedipine Er 60 Mg Tab.Er.24) 60 mg PO DAILY [facility] Last Admin: 05/20/24 08:39 Dose: 60 mg Olanzapine (Olanzapine Odt 10 Mg Tab.Rapdis) 15 mg TRANSLINGU BEDTIME [facility] Olanzapine (Olanzapine 5 Mg Tablet) 5 mg PO DAILY [facility] Last Admin: 05/20/24 08:39 Dose: 5 mg Olanzapine (Olanzapine 10 Mg Vial) 5 mg IM BID PRN PRN Reason: Give if refuses PO Zyprexa Omeprazole (Omeprazole 20 Mg Capsule.) 20 mg PO DAILY@0630 [facility] Last Admin: 05/20/24 06:46 Dose: 20 mg Simethicone (Simethicone 80 Mg Tab.Chew) 80 mg PO DAILY PRN PRN Reason: Dyspepsia Trazodone HCl (Trazodone Hcl 50 Mg Tablet) 50 mg PO BEDTIME MRX1 PRN PRN Reason: Insomnia Valsartan (Valsartan 160 Mg Tablet) 160 mg PO DAILY [facility] Last Admin: 05/20/24 08:44 Dose: Not Given Allergies Allergies Allergy/AdvReac Type Severity Reaction Status Date / Time blueberry [Blueberry] Allergy Severe SWELLING Verified 05/12/24 12:03 lisinopril Allergy Intermediate cough Verified 05/12/24 12:03 mushroom Allergy Intermediate SWELLING Verified 05/12/24 12:03 shellfish derived Allergy Unknown UNKNOWN Verified 05/12/24 12:03 [SHELLFISH DERIVED] thioridazine Allergy Unknown Unknown Verified 05/12/24 12:03 tomato [TOMATO] Allergy Unknown UNKNOWN Verified 05/12/24 12:03 CHOCOLATE Allergy Intermediate ITCHING Uncoded 03/20/24 10:09 From MELLARIL Allergy Intermediate SHORTNESS Uncoded 03/20/24 10:09 OF BREATH From THORAZINE Allergy Intermediate SHORTNESS Uncoded 03/20/24 10:09 OF BREATH Assessment & Plan Assessment & Plan (1) Schizophrenia: Qualifiers: Schizophrenia type: undifferentiated schizophrenia Qualified Code(s): F 20.3 - Undifferentiated schizophrenia Status: Acute Code(s): F20.9 - Schizophrenia, unspecified (2) Type 2 diabetes mellitus with hyperglycemia: Qualifiers: Diabetes mellitus remote computer terminal operator insulin use: without nursing home use Q ualified Code(s): E11.65 - Type 2 diabetes mellitus with hyperglycemia Status: Acute Code(s): E11.65 - Type 2 diabetes mellitus with hyperglycemia (3) HTN (hypertension): Qualifiers: Hypertension type: essential hypertension Qualified Code(s): I10 - Essential (primary) hypertension Status: Acute Code(s): I10 - Essential (primary) hypertension Plan Patient is a 74-year-old woman with history of schizoaffective disorder (versus schizophrenia), on a [employer], diabetes, hypertension, RLS, GERD who presents to the ED, sent by outpatient nurse for disorganized behavior, yelling in the hallway, broken glass in her room, unable to manage her diabetic care and concern for inability to care for self. It is unclear to what extent patient has been noncompliant with medication; she has been refusing medication here. Patient is a limited historian and difficult to understand, possibly due to accent verse edentulous. She tells speech writer that she has been taking her medications and that she never stopped taking them. Patient says she has been living in [place] for 35 years and she knows she is currently at the [facility]. She denies any current SI; she reports a history of SI but says it was a long time ago. She endorses auditory hallucinations and says they do... But they don't do.. Patient says she does not want to be in the hospital; she wants to discharge tomorrow and says do you know I am not doing anything wrong? I am not dangerous.. And because she has court and on Saturday she has healthcare people that are coming to visit. Formulation/clinical reasoning: Patient has long history of psychotic illness, works with [employer], history of past psychiatric hospitalizations. Community reports that patient has decompensated and is dysregulated. She mostly calm here but continues to refuse medications and SBP>200. She is on Fried order, however speech writer does not have the document so will continue to offer her medications. Today, after she initially refused medication she later on agreed to take her Zyprexa and nifedipine. Will need collateral -tardive dyskinesia at baseline -at baseline still has poor self-care. -chatman warning given on day of admission Hospital course: 05/18 Patient remains difficult with which to engage, hard to understand; says she wants to go; says she does not want medications and is refusing most, including antihypertensives and glaucoma eyedrops. Sometimes taking partial doses of Zyprexa -obtain Fried order expires 09/07/2024 obtained which includes Zyprexa/Zydis home dose 20 mg; up to 50 mg daily; alternatives include Abilify up to 30, Seroquel up to 750, Saphris up to 20 mg -patient not at baseline, refusing essential medications for medical comorbidities; will likely need to file 05/19 No change in presentation, slept only 2 hours last night taking Zyprexa but refusing essential medications for medical comorbidities; no capacity, no insight, insist wants to leave because she has people to see. -social work talked with LASHON who reports patient has been spitting out medications Remains in hypertensive urgency 05/20 Patient today said she needs to go home to meet someone. She tells speech writer that she is ... and has a baby in her belly...She then says God is telling her to get . Stone Polisher Hand discussed very concerning hypertension and refusal of glaucoma eye medications. She says that the blood pressure meds other wrong medications (she is only willing to take nifedipine, though she is on several other antihypertensives); she says that the glaucoma eyedrops make her eye sensitive and she does not like them. Stone Polisher Hand tried to provide education as to the risks of refusing these 2 categories of medications however patient was unable to understand. -speech writer explained that not ready to send her home out of safety; she refused to become a voluntary patient and told speech writer she will go to court then Team agrees that patient is unable to care of herself in the community and requires involuntary commitment Plan: Twelve B: File for involuntary commitment/substituted judgment due to patient's inability to care for self in the community Q 15 minute checks Zyprexa 5mg daily (court ordered/community Fried; give Zyprexa IM if refuses p.o.) Zyprexa/zydis 15mg qhs (court ordered/community Fried; give Zyprexa IM if refuses p.o.) Zyprexa IM 5mg (give if refuses PO Zyprexa) Continue Depkaote 250mg daily (not on fried); added since patient takes it at home and likely needs it stability Otherwise Continue home medications Gather collateral: reports off baseline Fried order (expires 09/07/2024) 1. Primary: Zyprexa/Zydis total home dose 20 mg; up to 50 mg daily; 2.alternatives include: Abilify up to 30mg Seroquel up to 750mg Saphris up to 20 mg Patient educated on: diagnosis, medication risk/benefits and medical condition Informed Consent: does not understand Reason for continued inpatient stay Substantial Risk for: inability to function Time Spent With Patient Time: Total time managing care of this patient today ____ minutes.
[2024-05-20 20:00] VITALS: RESP 16
[2024-05-21] MEDS: OLANZapine ODT 10 MG TAB.RAPDIS 15 MG TRANSLINGU ×2 (00:24→20:33)
[2024-05-21] MEDS: Divalproex Sodium 250 MG TABLET.DR PO ×2 (00:24→20:33)
[2024-05-21 08:00] VITALS: BP 137/96; PULSE 96; RESP 16; TEMP 36.9; O2SAT 97
[2024-05-21 09:14] VITALS: BP 137/96
[2024-05-21] MEDS: hydroCHLOROthiazide 12.5 MG TABLET PO (09:14)
[2024-05-21 09:20] VITALS: BP 137/96
[2024-05-21] MEDS: NIFEdipine ER 60 MG TAB.ER.24 PO (09:20)
[2024-05-21] MEDS: OLANZapine 5 MG TABLET PO (09:21)
--- NOTE | 2024-05-21 12:12 | P.PNPSI_ITS ---
Documented by User: Danika ArayaKalenMary Anne, MUSIC THERAPY TEACHER 05/22/24 10:46 Subjective Subjective Date of Service: 05/21/24 Reason For Visit: decompensated dementia Interim History: Team asks to facilitate transfer to geriatric psychiatry as pt will have greater benefit from [facility] offerings. Discussed with pt, who reports she is willing to transfer. Reviewed with team, Dr. Garcia. Pt will transition this afternoon. Today, prior to transfer, she is visable in [facility], receiving visitors (her OP team). She reports poor sleep, but does sleep in the milieu. The bed is too stiff and hard . She also reports feeling cold-team is bringing in warmer clothing today. She also likes to make calls on the phone- she calls the hospital and asks for the unit, and talks with the team on the phone. She denied pain today and is quietly interactive with peers and team. Medication Compliance: Yes Attending Groups: No Review of Systems Medical Review of Systems: unchanged Review of Systems Review of Systems Yes all other systems are reviewed and are negative Mental Status Exam Mental Status Exam Patient Appearance: Appropriate Patient Orientation: Person Level of Consciousness: Alert Patient Behavior: Talkative Mood Description: Flat Affect Description: Flat Patient Cognition Impaired: Yes Ability to Follow Directions: Fair Speech Pattern: Difficulty Finding Words, Spontaneous Speech and Soft-Spoken Memory Description: Remote Impaired Hallucinations: None Delusions: Not Present Thought Process: Distracted Thought Content: positive for [place], positive for Poverty of Content and positive for Suicidal Ideation (denies SI, plan or intent) Judgement: Poor Diagnostics Vital Signs (24Hr): Vital Signs - 24 hr 05/20/24 20:00 05/21/24 08:00 05/21/24 09:14 Temperature 98.4 F Pulse Rate 96 Respiratory Rate 16 16 Blood Pressure 137/96 H 137/96 H Pulse Oximetry 97 Oxygen Delivery Method Room Air 05/21/24 09:20 Temperature Pulse Rate Respiratory Rate Blood Pressure 137/96 H Pulse Oximetry Oxygen Delivery Method BMI result Body Mass Index 36.2 Labs 05/12/24 13:21 05/12/24 13:21 Medications Medications Current Medications Acetaminophen (Acetaminophen 325 Mg Tablet) 650 mg PO Q6H PRN PRN Reason: Headache/Pain Mild Scale (1-3) Al Hydroxide/Mg Hydroxide (Magnesium Hydrox/Alum Hydrox 30 Ml Oral.Susp) 30 ml PO Q6H PRN PRN Reason: Heartburn/Nausea Atorvastatin Calcium (Atorvastatin Calcium 80 Mg Tablet) 80 mg PO DAILY [facility] Last Admin: 05/21/24 09:20 Dose: Not Given Brimonidine Tartrate (Brimonidine Tartrate 0.2% Oph 5 Ml Bottle) 1 drop EYE- BOTH BID [facility] Last Admin: 05/21/24 09:20 Dose: Not Given Divalproex Sodium (Divalproex Sodium 250 Mg Tablet.) 250 mg PO BEDTIME [facility] Last Admin: 05/21/24 00:24 Dose: 250 mg Docusate Sodium (Docusate Sodium 100 Mg Capsule) 100 mg PO DAILY PRN PRN Reason: Constipation Hydrochlorothiazide (Hydrochlorothiazide 12.5 Mg Tablet) 12.5 mg PO DAILY [facility] Last Admin: 05/21/24 09:14 Dose: 12.5 mg Latanoprost (Latanoprost 0.005 % Ophth Catie 2.5 Ml Drops) 1 drop EYE-BOTH BEDTIME [facility] Last Admin: 05/21/24 00:25 Dose: Not Given Magnesium Hydroxide (Milk Of Magnesia 30 Ml Oral.Susp) 30 ml PO DAILY PRN PRN Reason: Constipation Nicotine (Nicotine 21 Mg Patch.Td24) 21 mg TRANSDERMA DAILY PRN PRN Reason: smoking cessation Nicotine Polacrilex (Nicotine Polacrilex 2 Mg Gum) 4 mg BUCCAL Q2H PRN PRN Reason: Nicotine Cravings Nifedipine (Nifedipine Er 60 Mg Tab.Er.24) 60 mg PO DAILY [facility] Last Admin: 05/21/24 09:20 Dose: 60 mg Olanzapine (Olanzapine Odt 10 Mg Tab.Rapdis) 15 mg TRANSLINGU BEDTIME [facility] Last Admin: 05/21/24 00:24 Dose: 15 mg Olanzapine (Olanzapine 5 Mg Tablet) 5 mg PO DAILY [facility] Last Admin: 05/21/24 09:21 Dose: 5 mg Olanzapine (Olanzapine 10 Mg Vial) 5 mg IM BID PRN PRN Reason: Give if refuses PO Zyprexa Omeprazole (Omeprazole 20 Mg Capsule.) 20 mg PO DAILY@0630 [facility] Last Admin: 05/21/24 09:19 Dose: Not Given Simethicone (Simethicone 80 Mg Tab.Chew) 80 mg PO DAILY PRN PRN Reason: Dyspepsia Trazodone HCl (Trazodone Hcl 50 Mg Tablet) 50 mg PO BEDTIME MRX1 PRN PRN Reason: Insomnia Valsartan (Valsartan 160 Mg Tablet) 160 mg PO DAILY [facility] Last Admin: 05/21/24 09:21 Dose: Not Given Allergies Allergies Allergy/AdvReac Type Severity Reaction Status Date / Time blueberry [Blueberry] Allergy Severe SWELLING Verified 05/12/24 12:03 lisinopril Allergy Intermediate cough Verified 05/12/24 12:03 mushroom Allergy Intermediate SWELLING Verified 05/12/24 12:03 shellfish derived Allergy Unknown UNKNOWN Verified 05/12/24 12:03 [SHELLFISH DERIVED] thioridazine Allergy Unknown Unknown Verified 05/12/24 12:03 tomato [TOMATO] Allergy Unknown UNKNOWN Verified 05/12/24 12:03 CHOCOLATE Allergy Intermediate ITCHING Uncoded 03/20/24 10:09 From MELLARIL Allergy Intermediate SHORTNESS Uncoded 03/20/24 10:09 OF BREATH From THORAZINE Allergy Intermediate SHORTNESS Uncoded 03/20/24 10:09 OF BREATH Assessment & Plan Assessment & Plan (1) Schizophrenia: Qualifiers: Schizophrenia type: undifferentiated schizophrenia Qualified Code(s): F 20.3 - Undifferentiated schizophrenia Status: Acute Code(s): F20.9 - Schizophrenia, unspecified (2) Type 2 diabetes mellitus with hyperglycemia: Qualifiers: Diabetes mellitus penitentiary insulin use: without extermination inspector use Q ualified Code(s): E11.65 - Type 2 diabetes mellitus with hyperglycemia Status: Deleted Code(s): E11.65 - Type 2 diabetes mellitus with hyperglycemia (3) HTN (hypertension): Qualifiers: Hypertension type: essential hypertension Qualified Code(s): I10 - Essential (primary) hypertension Status: Acute Code(s): I10 - Essential (primary) hypertension Plan Patient is a 74-year-old woman with history of schizoaffective disorder (versus schizophrenia), on a Community Fried, diabetes, hypertension, RLS, GERD who presents to the ED, sent by outpatient nurse for disorganized behavior, yelling in the hallway, broken glass in her room, unable to manage her diabetic care and concern for inability to care for self. It is unclear to what extent patient has been noncompliant with medication; she has been refusing medication here. Patient is a limited historian and difficult to understand, possibly due to accent verse edentulous. She tells science writer that she has been taking her medications and that she never stopped taking them. Patient says she has been living in [place] for 35 years and she knows she is [facility]. She denies any current SI; she reports a history of SI but says it was a long time ago. She endorses auditory hallucinations and says they do... But they don't do.. Patient says she does not want to be in the hospital; she wants to discharge tomorrow and says do you know I am not doing anything wrong? I am not dangerous.. And because she has court and on Saturday she has healthcare people that are coming to visit. Formulation/clinical reasoning: Patient has long history of psychotic illness, works with [employer], history of past psychiatric hospitalizations. Community reports that patient has decompensated and is dysregulated. She mostly calm here but continues to refuse medications and SBP>200. She is on Fried order, however science writer does not have the document so will continue to offer her medications. Today, after she initially refused medication she later on agreed to take her Zyprexa and nifedipine. Will need collateral -tardive dyskinesia at baseline -at baseline still has poor self-care. -chatman warning given on day of admission Hospital course: 05/18 Patient remains difficult with which to engage, hard to understand; says she wants to go; says she does not want medications and is refusing most, including antihypertensives and glaucoma eyedrops. Sometimes taking partial doses of Zyprexa -obtain Fried order expires 09/07/2024 obtained which includes Zyprexa/Zydis home dose 20 mg; up to 50 mg daily; alternatives include Abilify up to 30, Seroquel up to 750, Saphris up to 20 mg -patient not at baseline, refusing essential medications for medical comorbidities; will likely need to file 05/19 No change in presentation, slept only 2 hours last night taking Zyprexa but refusing essential medications for medical comorbidities; no capacity, no insight, insist wants to leave because she has people to see. -social work talked with LASHON who reports patient has been spitting out medications Remains in hypertensive urgency 05/20 Patient today said she needs to go home to meet someone. She tells science writer that she is ... and has a baby in her belly...She then says God is telling her to get . [employer] Assembly Repairer discussed very concerning hypertension and refusal of glaucoma eye medications. She says that the blood pressure meds other wrong medications (she is only willing to take nifedipine, though she is on several other antihypertensives); she says that the glaucoma eyedrops make her eye sensitive and she does not like them. [employer] Repairer tried to provide education as to the risks of refusing these 2 categories of medications however patient was unable to understand. -science writer explained that not ready to send her home out of safety; she refused to become a voluntary patient and told science writer she will go to court then 05/21: Pt to transfer to geriatric psychiatry per team request. -Team agrees that patient is unable to care of herself in the community and requires involuntary commitment Plan: Twelve B: File for involuntary commitment/substituted judgment due to patient's inability to care for self in the community Q 15 minute checks Zyprexa 5mg daily (court ordered/community Fried; give Zyprexa IM if refuses p.o.) Zyprexa/zydis 15mg qhs (court ordered/community Fried; give Zyprexa IM if refuses p.o.) Zyprexa IM 5mg (give if refuses PO Zyprexa) Continue Depkaote 250mg daily (not on fried); added since patient takes it at home and likely needs it stability Otherwise Continue home medications Gather collateral: reports off baseline Fried order (expires 09/07/2024) 1. Primary: Zyprexa/Zydis total home dose 20 mg; up to 50 mg daily; 2.alternatives include: Abilify up to 30mg Seroquel up to 750mg Saphris up to 20 mg Reason for continued inpatient stay Substantial Risk for: rapid decompensation Time Spent With Patient Time: Total time managing care of this patient today ____ minutes. Documented by User: Chevy Man MD 05/25/24 12:09 Subjective Subjective Reason For Visit: decompensated dementia Diagnostics Labs 05/12/24 13:21 05/12/24 13:21 Assessment & Plan Assessment & Plan (1) Schizophrenia: Qualifiers: Schizophrenia type: undifferentiated schizophrenia Qualified Code(s): F 20.3 - Undifferentiated schizophrenia Status: Acute Code(s): F20.9 - Schizophrenia, unspecified (2) Type 2 diabetes mellitus with hyperglycemia: Qualifiers: Diabetes mellitus penitentiary insulin use: without extermination inspector use Q ualified Code(s): E11.65 - Type 2 diabetes mellitus with hyperglycemia Status: Deleted Code(s): E11.65 - Type 2 diabetes mellitus with hyperglycemia (3) HTN (hypertension): Qualifiers: Hypertension type: essential hypertension Qualified Code(s): I10 - Essential (primary) hypertension Status: Acute Code(s): I10 - Essential (primary) hypertension Plan Patient is a 74-year-old woman with history of schizoaffective disorder (versus schizophrenia), on a Community Fried, diabetes, hypertension, RLS, GERD who presents to the ED, sent by outpatient nurse for disorganized behavior, yelling in the hallway, broken glass in her room, unable to manage her diabetic care and concern for inability to care for self. It is unclear to what extent patient has been noncompliant with medication; she has been refusing medication here. Patient is a limited historian and difficult to understand, possibly due to accent verse edentulous. She tells science writer that she has been taking her medications and that she never stopped taking them. Patient says she has been living in [place] for 35 years and she knows she is currently at [facility]. She denies any current SI; she reports a history of SI but says it was a long time ago. She endorses auditory hallucinations and says they do... But they don't do.. Patient says she does not want to be in the hospital; she wants to discharge tomorrow and says do you know I am not doing anything wrong? I am not dangerous.. And because she has court and on Saturday she has healthcare people that are coming to visit. Formulation/clinical reasoning: Patient has long history of psychotic illness, works with [employer], history of past psychiatric hospitalizations. Community reports that patient has decompensated and is dysregulated. She mostly calm here but continues to refuse medications and SBP>200. She is on Fried order, however science writer does not have the document so will continue to offer her medications. Today, after she initially refused medication she later on agreed to take her Zyprexa and nifedipine. Will need collateral -tardive dyskinesia at baseline -at baseline still has poor self-care. -chatman warning given on day of admission Hospital course: 05/18 Patient remains difficult with which to engage, hard to understand; says she wants to go; says she does not want medications and is refusing most, including antihypertensives and glaucoma eyedrops. Sometimes taking partial doses of Zyprexa -obtain Fried order expires 09/07/2024 obtained which includes Zyprexa/Zydis home dose 20 mg; up to 50 mg daily; alternatives include Abilify up to 30, Seroquel up to 750, Saphris up to 20 mg -patient not at baseline, refusing essential medications for medical comorbidities; will likely need to file 05/19 No change in presentation, slept only 2 hours last night taking Zyprexa but refusing essential medications for medical comorbidities; no capacity, no insight, insist wants to leave because she has people to see. -social work talked with LASHON who reports patient has been spitting out medications Remains in hypertensive urgency 05/20 Patient today said she needs to go home to meet someone. She tells science writer that she is ... and has a baby in her belly...She then says God is telling her to get . [employer] Repairer discussed very concerning hypertension and refusal of glaucoma eye medications. She says that the blood pressure meds other wrong medications (she is only willing to take nifedipine, though she is on several other antihypertensives); she says that the glaucoma eyedrops make her eye sensitive and she does not like them. [employer] Repairer tried to provide education as to the risks of refusing these 2 categories of medications however patient was unable to understand. -science writer explained that not ready to send her home out of safety; she refused to become a voluntary patient and told science writer she will go to court then -Team agrees that patient is unable to care of herself in the community and requires involuntary commitment Plan: Twelve B: File for involuntary commitment/substituted judgment due to patient's inability to care for self in the community Q 15 minute checks Zyprexa 5mg daily (court ordered/community Fried; give Zyprexa IM if refuses p.o.) Zyprexa/zydis 15mg qhs (court ordered/community Fried; give Zyprexa IM if refuses p.o.) Zyprexa IM 5mg (give if refuses PO Zyprexa) Continue Depkaote 250mg daily (not on fried); added since patient takes it at home and likely needs it stability Otherwise Continue home medications Gather collateral: reports off baseline Fried order (expires 09/07/2024) 1. Primary: Zyprexa/Zydis total home dose 20 mg; up to 50 mg daily; 2.alternatives include: Abilify up to 30mg Seroquel up to 750mg Saphris up to 20 mg
--- NOTE | 2024-05-21 13:33 | PC.NURSE ---
Report given to Tab Dorman RN on S1. Transfer orders are in. Preparing for transfer.
--- NOTE | 2024-05-21 14:25 | PC.NURSE ---
Pt transferred from . Pt declined VS assessment.
[2024-05-21 20:00] VITALS: RESP 18
[2024-05-22 09:23] LABS: Glucose, Whole Blood 128 mg/dL (60-115)
--- NOTE | 2024-05-22 09:35 | P.DS_ITS ---
DS: Providers Provider Date of Service: 05/22/24 Date of admission: 05/16/24 14:03 Date of discharge: 05/22/24 Primary care physician: Unknown Physician DS: Diagnosis Discharge Diagnosis (1) Schizophrenia: Status: Acute (2) Type 2 diabetes mellitus with hyperglycemia: Status: Acute (3) HTN (hypertension): Status: Acute DS: Medications Discharge Medications Home Medications: Home Medications ?Medication ?Instructions ?Recorded ?Confirmed divalproex 250 mg tablet,delayed 250 mg PO BEDTIME 07/09/20 05/12/24 release latanoprost (PF) 0.005 % eye drops 1 drp ophthalmic (eye) BEDTIME 11/24/20 05/12/24 brimonidine 0.2 % eye drops 1 drp ophthalmic (eye) BID 06/01/22 05/12/24 olanzapine 15 mg disintegrating 15 mg PO BEDTIME 10/02/23 05/12/24 tablet simethicone 80 mg chewable tablet 80 mg PO NEEDED PRN Dyspepsia 10/02/23 05/12/24 docusate sodium 100 mg capsule 100 mg PO DAILY PRN Constipation 05/12/24 05/14/24 (Colace) olanzapine 5 mg tablet (Zyprexa) 5 mg PO DAILY 05/12/24 05/12/24 Previous Rx's ?Medication ?Instructions ?Recorded atorvastatin 80 mg tablet 80 mg PO DAILY #30 tabs 11/17/23 omeprazole 20 mg capsule,delayed 20 mg PO DAILY@0630 #90 caps 01/04/24 release valsartan 160 1 tab PO DAILY #30 tabs 03/20/24 mg-hydrochlorothiazide 12.5 mg tablet nifedipine 60 mg tablet,extended 60 mg PO DAILY #90 tabs 04/16/24 release Mental Status Exam Mental Status Exam Patient Appearance: Appropriate Patient Orientation: Person Level of Consciousness: Lethargic Patient Behavior: Guarded Mood Description: Withdrawn Affect Description: Blunted Patient Cognition Impaired: Yes Ability to Follow Directions: Poor Speech Pattern: Soft-Spoken and Mumbled Hallucinations: None Delusions: Not Present Thought Process: Distracted Thought Content: positive for [place] and positive for Poverty of Content Judgement: Poor Data Data Completed and Pending Completed studies during hospitalization [Text1]: 05/16/24 05/19/24 05/22/24 21:01 08:16 09:19 POC Glucose 128 H Ammonia 30 Triglycerides 181 H Cholesterol 264 H LDL Cholesterol, Calc 171 H HDL Cholesterol 57 Vitamin B12 1617 H Folate 13.7 DS: Summary Hospital Course Hospital Course: PATIENT TRANSFERRRED FROM TO [facility], HX OF SCHIZOPHRENIA. HAD A FALL AT AM AND A CODE WAS ORDERED, TRANSFERRED TO MEDICINE PER MEDICAL TEAM Time spent discussing smoking cessation with patient: 3 to 10 minutes Status at Discharge Cognitive/behavioral status at discharge: At baseline Functional status at discharge: independent ambulation Overall status at discharge: patient is not back to baseline Time Spent with Patient Time attestation: Total time managing care of this patient today _20___ minutes. Time spent: Less than 30 minutes Discharge Plan Discharge Anticipated Discharge Date/Time: 05/22/24 09:37 Patient Disposition: Xfer Acute Care Hospital Discharge Diagnosis: AMS schizophrenia Referrals: Physician,Unknown J [Primary Care Provider] - 1 Week Discharge Medications: New latanoprost 0.005 % Drops 1 drp ophthalmic (eye) BEDTIME 30 Days Qty: 5 0RF trazodone 50 mg Tablet 50 mg PO BEDTIME MRX1 PRN (Reason: Insomnia) 30 Days Qty: 30 0RF nicotine (polacrilex) 2 mg Gum 4 mg buccal Q2H PRN (Reason: Nicotine Cravings) 7 Days Qty: 14 0RF olanzapine 5 mg Tablet 5 mg PO DAILY 30 Days Qty: 30 0RF nicotine 21 mg/24 hr Patch 24 Hour 21 mg transdermal DAILY PRN (Reason: smoking cessation) 7 Days Qty: 7 0RF olanzapine 10 mg Tablet,Disintegrating 15 mg translingual BEDTIME 30 Days Qty: 45 0RF Continued atorvastatin 80 mg tablet 80 mg PO DAILY Qty: 30 0RF divalproex 250 mg tablet,delayed release (DR/EC) 250 mg PO BEDTIME 30 Days Qty: 30 0RF valsartan-hydrochlorothiazide 160-12.5 mg tablet 1 tab PO DAILY 30 Days Qty: 30 5RF brimonidine 0.2 % drops 1 drp ophthalmic (eye) BID 30 Days Qty: 5 0RF Rx Instructions: right eye docusate sodium [Colace] 100 mg capsule 100 mg PO DAILY PRN (Reason: Constipation) 30 Days Qty: 30 0RF omeprazole 20 mg capsule,delayed release(DR/EC) 20 mg PO DAILY@0630 Qty: 90 3RF nifedipine 60 mg tablet extended release 60 mg PO DAILY Qty: 90 1RF simethicone 80 mg Tablet,Chewable 80 mg PO NEEDED PRN (Reason: Dyspepsia) 30 Days Qty: 30 0RF Discontinued olanzapine 15 mg Tablet,Disintegrating 15 mg PO BEDTIME olanzapine [Zyprexa] 5 mg Tablet 5 mg PO DAILY latanoprost (PF) 0.005 % drops 1 drp ophthalmic (eye) BEDTIME Rx Instructions: both eyes Discharge Orders: Discharge Order (Routine); Ordered 05/22/24 Ordered By: Bobo Garcia Diet: Advance to usual diet Activity on Discharge: As tolerated Stand Alone Forms: Patient Portal Discharge page Print Language: [place] Care Plan [facility]als: [email or web address] Concerns: [email or web address] Plan of Treatment: [email or web address] Assessment: PATIENT TRANSFERRED TO [facility] AFTER A FALL
--- NOTE | 2024-05-22 10:23 | PC.NURSE ---
Around 0920 an [facility] called for assistance, reported that they heard a Bang, and found patient on the floor. Upon approach Normala was on the floor, head against the wall, not responding to tag writer. BUILDING ESTIMATOR was called, VS obtained manually 102/60. Slight movement and speech as she was being assessed, neck brace was placed and she was transferred to medicine for further assessment.
== END 2024-05-22 09:30 | disposition short-term general hospital (02) | DRG 885 ==
LOC: HO.ED 05-16 15:03 → HO.PM5 05-16 16:40 → HO.PGERI 05-21 14:16
PROVIDERS: Physician Assistant; Admitting Provider Psychiatry & Neurology Psychiatry; Emergency Provider Emergency Medicine; Visit Provider Psychiatry & Neurology Psychiatry
DX: F20.9 Schizophrenia, unspecified (principal); F03.90 Unspecified dementia, unspecified severity, without behavioral disturbance, psychotic disturbance, mood disturbance, and anxiety; I10 Essential (primary) hypertension; G25.81 Restless legs syndrome; Z91.148 Patient's other noncompliance with medication regimen for other reason; Z87.891 Personal history of nicotine dependence; Z79.899 Other long term (current) drug therapy
CPT/HCPCS: 36415; 70450; 72125; 72192; 80048; 80061; 80076; 80164; 80307; 81003; 82140; 82607; 82746; 82947; 83735; 85025; 93005; 99285; S9485

== ENCOUNTER → 2024-05-12 13:03 | Outpatient (BNV) | payer MEDICARE, SELFPAY | PROVIDERS: Emergency Provider Emergency Medicine; Visit Provider Psychiatry & Neurology Psychiatry | DX: F20.3 Undifferentiated schizophrenia (principal); E11.65 Type 2 diabetes mellitus with hyperglycemia; I10 Essential (primary) hypertension | CPT/HCPCS: 90792; 99231; 99232; 99238; 99281 ==

== ENCOUNTER 2024-05-22 10:14 | Inpatient (IN) | payer OTHER, SELFPAY ==
--- NOTE | 2024-05-22 | ECG_ITS ---
Test Reason : UNWESSED FALL Blood Pressure : / mmHG Vent. Rate : 102 BPM Atrial Rate : 102 BPM P-R Int : 142 ms QRS Dur : 070 ms QT Int : 346 ms P-R-T Axes : 069 010 051 degrees QTc Int : 450 ms Sinus tachycardia Otherwise normal ECG When compared with ECG of 12-MAY-2024 14:15, No significant change was found Referred By: Primitivo Odonnell Electronically Signed By:ANTHONY WELCH
--- NOTE | 2024-05-22 10:13 | P.HPHOSP_ITS ---
History of Present Illness Date of Service: 05/22/24 Chief Complaint: syncope 74F PMH bipolar, schizophrenia, dementia unspecified, RLS, gerd, htn, obesity was in inpatient psychiatry for decompensation of schizoaffective disorder, rapid response called for unwitnessed fall in bathroom. No obvious trauma when seen, minimally responsive with a systolic blood pressure in 60s, heart rate normal, point of care normal, was minimally responsive for about 15 minutes until transferred to stretcher and started to wake up as blood pressure improved. Patient has trauma workup by CT head, cervical spine, pelvis pending. plan for transfer to monitor on medical floor. Review of Systems Review of Systems: Yes all other systems are reviewed and are negative [facility] Medical History Schatzki's ring Glaucoma GERD (gastroesophageal reflux disease) Hyperlipidemia Bipolar 1 disorder Family History Father No problems noted. Mother No problems noted. Surgical History History of cataract surgery History of total abdominal hysterectomy History of section Social History Household Members: None Housing: Apartment Do you presently have visiting nurse or other home services: Yes Unable to assess alcohol history related to: Unknown Alcohol intake: never Patient Tobacco Use Status: Former Tobacco user Tobacco use type: Cigarette e-Cigarette/Vaping Use: Never Used Second Hand Smoke Exposure: No service: No Current occupational status: disabled Sexual orientation: Straight/Heterosexual Cognitive needs: Yes Hearing needs: Yes Vision needs: Yes Meds Allergies Allergy/AdvReac Type Severity Reaction Status Date / Time blueberry [Blueberry] Allergy Severe SWELLING Verified 05/12/24 12:03 lisinopril Allergy Intermediate cough Verified 05/12/24 12:03 mushroom Allergy Intermediate SWELLING Verified 05/12/24 12:03 shellfish derived Allergy Unknown UNKNOWN Verified 05/12/24 12:03 [SHELLFISH DERIVED] thioridazine Allergy Unknown Unknown Verified 05/12/24 12:03 tomato [TOMATO] Allergy Unknown UNKNOWN Verified 05/12/24 12:03 CHOCOLATE Allergy Intermediate ITCHING Uncoded 03/20/24 10:09 From MELLARIL Allergy Intermediate SHORTNESS Uncoded 03/20/24 10:09 OF BREATH From THORAZINE Allergy Intermediate SHORTNESS Uncoded 03/20/24 10:09 OF BREATH Active Medications: Current Medications Acetaminophen (Acetaminophen 325 Mg Tablet) 650 mg PO Q6H PRN PRN Reason: Pain, Mild (Pain Scale 1-3), fever or headache Atorvastatin Calcium (Atorvastatin Calcium 80 Mg Tablet) 80 mg PO BEDTIME EDIN Brimonidine Tartrate (Brimonidine Tartrate 0.2% Oph 5 Ml Bottle) 1 drop EYE- BOTH BID EDIN Calcium Carbonate (Calcium Carbonate 750 Mg Tab.Chew) 750 mg PO Q4H PRN PRN Reason: Heartburn Divalproex Sodium (Divalproex Sodium 250 Mg Tablet.Dr) 250 mg PO BEDTIME EDIN Enoxaparin Sodium (Enoxaparin Sodium 40 Mg/0.4 Ml Syringe) 40 mg SUBCUT Q24H EDIN Latanoprost (Latanoprost 0.005 % Ophth Catie 2.5 Ml Drops) 1 drop EYE-BOTH BEDTIME EDIN Magnesium Hydroxide (Milk Of Magnesia 30 Ml Oral.Susp) 30 ml PO DAILY PRN PRN Reason: Constipation Melatonin (Melatonin 3 Mg Tablet) 6 mg PO BEDTIME PRN PRN Reason: Insomnia Nicotine Polacrilex (Nicotine Polacrilex 2 Mg Gum) 2 mg BUCCAL Q1H PRN PRN Reason: Nicotine Cravings Olanzapine (Olanzapine 5 Mg Tablet) 5 mg PO DAILY [facility] Olanzapine (Olanzapine Odt 10 Mg Tab.Rapdis) 15 mg TRANSLINGU BEDTIME EDIN Omeprazole (Omeprazole 20 Mg Capsule.Dr) 20 mg PO DAILY@0630 [facility] Sodium Chloride (0.9 % Sodium Chloride Flush 3 Ml Syringe) 3 ml IVFLUSH QSHIFT EDIN Trazodone HCl (Trazodone Hcl 50 Mg Tablet) 50 mg PO BEDTIME PRN PRN Reason: Insomnia Physical Exam Vital Signs and Narrative: lethargic, disoriented, no gross trauma, lungs clear, heart sounds normal Assessment and Plan (1) Syncope: Status: Acute Plan 74F PMH bipolar, schizophrenia, dementia unspecified, RLS, gerd, htn, obesity Syncope Most likely vasovagal, monitor on telemetry Hold antihypertensives for now Follow-up trauma workup, CBC BMP troponin, EKG Schizoaffective disorder Continue olanzapine, Depakote DVT prophylaxis with Lovenox Full Code Quality Stroke Does the patient have a stroke diagnosis?: No VTE Prior VTE?: No VTE Risk Level:: Medical - moderate - high VTE Device Contraindication: Treatment Not Indicated VTE Drug Contraindication: N/A - Med Ordered
--- NOTE | 2024-05-22 10:15 | PHA.MEDREC ---
Pharmacy Consult ? Medication Reconciliation Med Rec completed 05/14/24 by nursing. Patient transferred from psych floor.
[2024-05-22 11:12] LABS: Hematocrit 44.7 % (37.0-47.0); Hemoglobin 14.8 g/dl (12.0-16.0); Mean Corpuscular HGB Conc 33.1 g/dl (31.0-35.0); Mean Corpuscular Hemoglobin 30.8 pg (27.0-33.0); Mean Corpuscular Volume 93.1 fL (80.0-98.0); Mean Platelet Volume 10.2 fL (9.4-12.3); Platelet Count 174 X10*3/uL (160-400); Red Cell Distribution Width 13.7 % (11.0-16.0); White Blood Count 10.3 X10*3/uL (4.8-10.8)
[2024-05-22 11:28] LABS: Anion Gap 14 (12-20); Blood Urea Nitrogen 21 mg/dL (9-16); Calcium 10.2 mg/dL (8.4-10.2); Carbon Dioxide 25 mmol/L (22-29); Chloride 109 mmol/L (96-108); Estimated Glomerular Filt Rate 45; Glucose Random 117 mg/dL (60-115); Potassium 4.1 mmol/L (3.3-5.1); Sodium 144 mmol/L (135-145)
[2024-05-22 11:36] LABS: Troponin-I High Sensitivity 5.5 ng/L (<3.5-17.0)
[2024-05-22 11:54] VITALS: BP 153/72; PULSE 101; RESP 18; TEMP 36.8; O2SAT 95
--- NOTE | 2024-05-22 15:44 | PC.NURSE ---
Patient refusing to let staff take her vitals, stating you do not work here . States that she wants to be left alone to sleep. All other needs met at this time and call borden/camera in place.
[2024-05-22] MEDS: OLANZapine ODT 10 MG TAB.RAPDIS 15 MG TRANSLINGU (21:15)
[2024-05-22] MEDS: traZODone HCL 50 MG TABLET PO (21:15)
[2024-05-22] MEDS: Divalproex Sodium 250 MG TABLET.DR PO (21:15)
[2024-05-22] MEDS: 0.9 % Sodium Chloride Flush 3 ML SYRINGE IVFLUSH (21:16)
[2024-05-23 04:00] VITALS: BP 149/68; PULSE 78; RESP 20; TEMP 36.6; O2SAT 94
[2024-05-23] MEDS: 0.9 % Sodium Chloride Flush 3 ML SYRINGE IVFLUSH (08:42)
[2024-05-23] MEDS: OLANZapine 5 MG TABLET PO (08:43)
--- NOTE | 2024-05-23 09:19 | HO.PM.IMPN ---
Subjective Subjective Date of Service: 05/23/24 Interval History: no complaints Physical Exam Vital Signs: Vital Signs: Last Vital Signs Temp 97.8 F 05/23/24 04:00 Pulse 78 05/23/24 04:00 Resp 20 05/23/24 04:00 BP 149/68 H 05/23/24 04:00 Pulse Ox 94 05/23/24 04:00 O2 Del Method Room Air 05/23/24 04:00 alert, confused, lungs clear Objective Data Active Medications Acetaminophen (Acetaminophen 325 Mg Tablet) 650 mg PO Q6H PRN PRN Reason: Pain, Mild (Pain Scale 1-3), fever or headache Atorvastatin Calcium (Atorvastatin Calcium 80 Mg Tablet) 80 mg PO BEDTIME [facility] Last Admin: 05/22/24 21:21 Dose: Not Given Documented By: MELINDA Non-Admin Reason: Patient Refused Brimonidine Tartrate (Brimonidine Tartrate 0.2% Oph 5 Ml Bottle) 1 drop EYE-BOTH BID [facility] Last Admin: 05/23/24 08:42 Dose: Not Given Documented By: DAYANARA Non-Admin Reason: Patient Refused Calcium Carbonate (Calcium Carbonate 750 Mg Tab.Chew) 750 mg PO Q4H PRN PRN Reason: Heartburn Divalproex Sodium (Divalproex Sodium 250 Mg Tablet.Dr) 250 mg PO BEDTIME [facility] Last Admin: 05/22/24 21:15 Dose: 250 mg Documented By: MELINDA Enoxaparin Sodium (Enoxaparin Sodium 40 Mg/0.4 Ml Syringe) 40 mg SUBCUT Q24H [facility] Last Admin: 05/23/24 08:42 Dose: Not Given Documented By: DAYANARA Non-Admin Reason: Patient Refused Latanoprost (Latanoprost 0.005 % Ophth Catie 2.5 Ml Drops) 1 drop EYE-BOTH BEDTIME [facility] Last Admin: 05/22/24 21:16 Dose: Not Given Documented By: MELINDA Non-Admin Reason: Med Not Available Magnesium Hydroxide (Milk Of Magnesia 30 Ml Oral.Susp) 30 ml PO DAILY PRN PRN Reason: Constipation Melatonin (Melatonin 3 Mg Tablet) 6 mg PO BEDTIME PRN PRN Reason: Insomnia Nicotine Polacrilex (Nicotine Polacrilex 2 Mg Gum) 2 mg BUCCAL Q1H PRN PRN Reason: Nicotine Cravings Olanzapine (Olanzapine 5 Mg Tablet) 5 mg PO DAILY [facility] Last Admin: 05/23/24 08:43 Dose: 5 mg Documented By: DAYANARA Olanzapine (Olanzapine Odt 10 Mg Tab.Rapdis) 15 mg TRANSLINGU BEDTIME [facility] Last Admin: 05/22/24 21:15 Dose: 15 mg Documented By: MELINDA Omeprazole (Omeprazole 20 Mg Capsule.Dr) 20 mg PO DAILY@0630 [facility] Last Admin: 05/23/24 05:44 Dose: Not Given Documented By: MELINDA Non-Admin Reason: Patient Refused Sodium Chloride (0.9 % Sodium Chloride Flush 3 Ml Syringe) 3 ml IVFLUSH QSHIFT [facility] Last Admin: 05/23/24 08:42 Dose: 3 ml Documented By: DAYANARA Trazodone HCl (Trazodone Hcl 50 Mg Tablet) 50 mg PO BEDTIME PRN PRN Reason: Insomnia Last Admin: 05/22/24 21:15 Dose: 50 mg Documented By: MELINDA Labs 05/22/24 10:52 05/22/24 10:52 Labs: Laboratory Results - last 24 hr 05/22/24 10:52 MCV 93.1 MCH 30.8 MCHC 33.1 RDW 13.7 Plt Count 174 MPV 10.2 Absolute Nucleated RBC 0.000 Nucleated RBC % (auto) 0.0 Anion Gap 14 Estim Creat Clear Calc TNP Estimated GFR 45 Random Glucose 117 H Calcium 10.2 Troponin I High Sens 5.5 Assessment and Plan (1) Syncope: Status: Acute Plan 74F PMH bipolar, schizophrenia, dementia unspecified, RLS, gerd, htn, obesity Syncope Most likely vasovagal, no events on tele no signs of trauma medically cleared for discharge back to [facility] htn will reduce to just nifedipine 30mg daily for now, monitor and adjust as needed Schizoaffective disorder Continue olanzapine, Depakote DVT prophylaxis with Lovenox Full Code reason for continued hospitalization:awaiting care team eval Quality Stroke Does the patient have a stroke diagnosis?: No VTE Prior VTE?: No VTE Risk Level:: Medical - moderate - high VTE Device Contraindication: Treatment Not Indicated VTE Drug Contraindication: N/A - Med Ordered
[2024-05-23 11:27] VITALS: BP 137/76; PULSE 116; RESP 20; TEMP 36.4; O2SAT 97
--- NOTE | 2024-05-23 16:48 | P.DS_ITS ---
DS: Providers Provider Date of Service: 05/23/24 Date of admission: 05/22/24 10:14 Date of discharge: 05/23/24 Primary care physician: Unknown Physician Consults: 05/23/24 08:34 Consult to Care Team Routine Comment: Reason for consultation: psychosis, medically cleared DS: Diagnosis Discharge Diagnosis (1) Syncope: Status: Acute DS: Summary Hospital Course Hospital Course: from initial hpi: 74F PMH bipolar, schizophrenia, dementia unspecified, RLS, gerd, htn, obesity was in inpatient psychiatry for decompensation of schizoaffective disorder, rapid response called for unwitnessed fall in bathroom. No obvious trauma when seen, minimally responsive with a systolic blood pressure in 60s, heart rate normal, point of care normal, was minimally responsive for about 15 minutes until transferred to [facility] and started to wake up as blood pressure improved. Patient has trauma workup by CT head, cervical spine, pelvis pending. plan for transfer to monitor on medical floor. hospital course: Patient was admitted for syncope. This is most likely vasovagal, she was monitored on telemetry and no significant events. Trauma workup was negative. For history of hypertension, with recent blood pressures above 200 in the ER prior to [facility] admission, she has been having low normal blood pressures on minimal medications, her blood pressure medications have been reduced to just nifedipine er 30 mg daily. Her blood pressures should be monitored closely and medications adjusted as needed. For schizoaffective disorder was continued on olanzapine and Depakote and has been seen by care team who recommended transferred back to [facility]. Time Attestation Discharge Coordination Time (in mins): 37 Quality: Safe Use of Opioids Does Pt have an Active Cancer Diagnosis on the Problem List?: No Quality: Stroke Does the patient have a stroke diagnosis?: No Physical Exam Vital Signs: Vital Signs: Last Vital Signs Temp 97.6 F 05/23/24 11:27 Pulse 116 H 05/23/24 11:27 Resp 20 05/23/24 11:27 BP 137/76 05/23/24 11:27 Pulse Ox 97 05/23/24 11:27 O2 Del Method Room Air 05/23/24 11:27 alert, confused, lungs clear Discharge Plan Discharge Anticipated Discharge Date/Time: 05/23/24 16:45 Patient Disposition: Xfer Other Discharge Diagnosis: vasovagal syncope Referrals: Physician,Unknown J [Primary Care Provider] - 1 Week Discharge Medications: New nifedipine 30 mg Tablet Extended Release 24hr 30 mg PO DAILY Qty: 0 0RF Protocol: Hold for SBP< HOLD for SBP < : 90 Continued latanoprost 0.005 % Drops 1 drp ophthalmic (eye) BEDTIME 30 Days Qty: 5 0RF trazodone 50 mg Tablet 50 mg PO BEDTIME MRX1 PRN (Reason: Insomnia) 30 Days Qty: 30 0RF nicotine (polacrilex) 2 mg Gum 4 mg buccal Q2H PRN (Reason: Nicotine Cravings) 7 Days Qty: 14 0RF olanzapine 5 mg Tablet 5 mg PO DAILY 30 Days Qty: 30 0RF nicotine 21 mg/24 hr Patch 24 Hour 21 mg transdermal DAILY PRN (Reason: smoking cessation) 7 Days Qty: 7 0RF olanzapine 10 mg Tablet,Disintegrating 15 mg translingual BEDTIME 30 Days Qty: 45 0RF atorvastatin 80 mg tablet 80 mg PO DAILY Qty: 30 0RF divalproex 250 mg tablet,delayed release (DR/EC) 250 mg PO BEDTIME 30 Days Qty: 30 0RF brimonidine 0.2 % drops 1 drp ophthalmic (eye) BID 30 Days Qty: 5 0RF Rx Instructions: right eye docusate sodium [Colace] 100 mg capsule 100 mg PO DAILY PRN (Reason: Constipation) 30 Days Qty: 30 0RF omeprazole 20 mg capsule,delayed release(DR/EC) 20 mg PO DAILY@0630 Qty: 90 3RF simethicone 80 mg Tablet,Chewable 80 mg PO NEEDED PRN (Reason: Dyspepsia) 30 Days Qty: 30 0RF Discontinued valsartan-hydrochlorothiazide 160-12.5 mg tablet 1 tab PO DAILY 30 Days Qty: 30 5RF nifedipine 60 mg tablet extended release 60 mg PO DAILY Qty: 90 1RF Discharge Orders: Discharge Order (Routine); Ordered 05/23/24 Ordered By: Primitivo Odonnell Diet: Advance to usual diet Activity on Discharge: As tolerated Stand Alone Forms: Patient Portal Discharge page Print Language: Macedonian Care Plan Goals: avoid syncope Health Concerns: syncope, labile blood pressures Plan of Treatment: bp meds have been decreased to nifedipine 30mg only, was recently hypertensive to 200s, so this should be monitored Assessment: see above
--- NOTE | 2024-05-23 17:21 | HO.PSYEVENT2 ---
Event Note Date of Service: 05/23/24 Psych On-Call Event Note: Doc to doc transfer discussion completed with Dr. Flood,. Antihypertensives were lowered she had had a hypotensive episode since stabilized. Patient was able to go through the conditional voluntary and after careful thought was willing to sign and appeared to understand the ramifications of signing the conditional voluntary Time Spent With Patient Time: Total time managing care of this patient today 15____ minutes.
== END 2024-05-23 17:57 | disposition other institution (70) | DRG 312 ==
PROVIDERS: Admitting Provider Family Medicine; Visit Provider Internal Medicine
DX: R55 Syncope and collapse (principal); F03.90 Unspecified dementia, unspecified severity, without behavioral disturbance, psychotic disturbance, mood disturbance, and anxiety; G25.81 Restless legs syndrome; I10 Essential (primary) hypertension; F25.9 Schizoaffective disorder, unspecified; Z79.899 Other long term (current) drug therapy
CPT/HCPCS: 36415; 80048; 84484; 85027; 93005; 99222; S9485

== ENCOUNTER → 2024-05-22 10:14 | Outpatient (BNV) | payer OTHER, SELFPAY | PROVIDERS: Admitting Provider Family Medicine; Visit Provider Internal Medicine | DX: R55 Syncope and collapse (principal) | CPT/HCPCS: 99223; 99239 ==

== ENCOUNTER 2024-05-23 17:23 | Inpatient (IN) | payer OTHER, SELFPAY ==
[2024-05-23 18:31] VITALS: RESP 16
--- NOTE | 2024-05-23 18:49 | PC.ADMIT ---
Reji is a 74-year-old female with a history of schizophrenia, dementia, bipolar, diabetes, HTN, restless legs syndrome, GERD, obesity who came from [facility] as a transfer at 1827. She was sent to [facility] yesterday after a syncopal episode on S1. She was brought down to the unit and was calm and cooperative. She is very disorganized and denied thoughts to harm self or others. Belongings given. Reji was shown her room and oriented to the unit. She denied auditory/visual hallucinations however she is overheard to self-dialogue. She was placed on five minute checks for safety. She ambulates independently. Will continue to monitor for safety and changes in behavior.
[2024-05-23 20:00] VITALS: BP 171/74; PULSE 88; RESP 16; TEMP 37.1; O2SAT 98
[2024-05-23] MEDS: OLANZapine ODT 10 MG TAB.RAPDIS 15 MG TRANSLINGU (21:45)
[2024-05-24 02:36] VITALS: BMI 30.2
--- NOTE | 2024-05-24 07:23 | PC.NURSE ---
[id number] attempted to interview pt for safety tool and perform intake interview. unfortunately, pt became agitated and screamed out just leave me alone .
--- NOTE | 2024-05-24 10:29 | P.HPPS_ITS ---
HPI Date of Service: 05/24/24 Chief Complaint: Schizophrenia Sources of Information: patient interviewed and chart reviewed Additional Sources of Information: Case reviewed with medical staff patient seen in full evaluation at 14:00 case reviewed with Medical team prior to transfer HPI Subjective Notes: Guero Order and Conditional Voluntary Narrative: The patient is readmitted to the geriatric unit she had been transferred to the medical floor after a hypotensive event. She has been medically stable on the medical floor her antihypertensives have been significantly changed and sugges tion has been to monitor patient's blood pressure and may need re-evaluation to restart any of it discontinued antihypertensives the patient did sign a conditional voluntary after thoroughly reading the CV she did agree to be transferred back to the geriatric unit and continued care. The patient reportedly lives in a supportive apartment had become increasingly erratic in behavior and refusing medication she has a history of reported schizophrenia has been living on her own in apartment but with the help of in a [facility] team [facility] patient was cooperative on the medical floor Past Psychiatric History: [facility] client, kev's order and guardian. Schizoaffective D/O Dx per [facility]osps: [facility] [place] [facility], [place]. outpt: [facility] Medical Evaluation Reviewed: Yes Antihypertensives were adjusted follow blood pressure ongoing to see if needs further adjustment and restarting PMFSH Medical History Schatzki's ring Glaucoma GERD (gastroesophageal reflux disease) Hyperlipidemia Bipolar 1 disorder Surgical History History of cataract surgery History of total abdominal hysterectomy History of section Family History: unknown Social History: lives in her own apartment. 2 adult children. born in [place]. moved to [place] in [place]. Trauma History: unknown Diagnostics Vital Signs (24Hr): Vital Signs - 24 hr 05/23/24 18:31 05/23/24 20:00 Temperature 98.7 F Pulse Rate 88 Respiratory Rate 16 16 Blood Pressure 171/74 H Pulse Oximetry 98 Oxygen Delivery Method Room Air BMI result Body Mass Index 30.2 Meds/Allergies Meds Home Medications ?Medication ?Instructions ?Recorded ?Confirmed ?Type Lovenox 40 mg subcut DAILY 05/23/24 05/23/24 History Maalox 30 ml PO QID PRN Heartburn 05/23/24 05/23/24 History Milk of Magnesia 30 ml PO DAILY PRN Constipation 05/23/24 05/23/24 History hydroxyzine HCl 25 mg tablet 25 mg PO PRN Anxiety 05/23/24 History latanoprost 0.005 % eye drops 1 drp ophthalmic (eye) BEDTIME 05/23/24 05/23/24 History omeprazole 20 mg PO DAILY@0630 05/23/24 05/23/24 History Allergies Allergies Allergy/AdvReac Type Severity Reaction Status Date / Time blueberry [Blueberry] Allergy Severe SWELLING Verified 05/12/24 12:03 lisinopril Allergy Intermediate cough Verified 05/12/24 12:03 mushroom Allergy Intermediate SWELLING Verified 05/12/24 12:03 shellfish derived Allergy Unknown UNKNOWN Verified 05/12/24 12:03 [SHELLFISH DERIVED] thioridazine Allergy Unknown Unknown Verified 05/12/24 12:03 tomato [TOMATO] Allergy Unknown UNKNOWN Verified 05/12/24 12:03 CHOCOLATE Allergy Intermediate ITCHING Uncoded 03/20/24 10:09 From MELLARIL Allergy Intermediate SHORTNESS Uncoded 03/20/24 10:09 OF BREATH From THORAZINE Allergy Intermediate SHORTNESS Uncoded 03/20/24 10:09 OF BREATH Mental Status Exam Mental Status Exam Narrative: Pt is alert and oriented; behavior is mostly cooperative dressed in casual attire with overall adequate hygiene; mood is described as good and affect constricted; eye contact appropriate; Speech is difficult to understand (given accent/edentulous/TD) but is spontaneous and normal rate, volume and prosody and not pressured; TD present which is baseline; no psychomotor agitation/retardation present; thought process seems goal directed concrete poorly informational; Thought content difficult to understand able to give information regarding living situation some of her medication; denies any SI/HI. Accepted transfer to psychiatric unit does not want long stay some concerns that were difficult to understand Patients insight and judgment impaired not aggressive or agitated no SI or HI Assessment & Plan Assessment & Plan (1) Schizophrenia: Status: Acute Qualifiers: Schizophrenia type: undifferentiated schizophrenia Qualified Code(s): F20.3 - Undifferentiated schizophrenia Code(s): F20.9 - Schizophrenia, unspecified (2) HTN (hypertension): Status: Acute Qualifiers: Hypertension type: essential hypertension Qualified Code(s): I10 - Essential (primary) hypertension Code(s): I10 - Essential (primary) hypertension Plan Restart olanzapine and Depakote check labs follow blood pressure coordinate care with outpatient team patient may have had a pending court hearing this will need to be re-evaluated she does have a Jack order Patient educated on: diagnosis, medication risk/benefits and medical condition Reason for continued inpatient stay Substantial Risk for: inability to function, rapid decompensation and med/psych decompensation Statement Statement: I have reviewed the history and physical and performed a pertinent examination on my patient. No changes have occurred unless specified. If the History and Physical was not performed prior to admission, the Hospitalist's service will be consulted for completing the admission physical. Time Spent With Patient Time: Total time managing care of this patient today ____ minutes.
[2024-05-24 15:40] VITALS: BP 144/68; PULSE 86
[2024-05-24 15:50] VITALS: BP 135/73; PULSE 90
[2024-05-24 16:02] VITALS: BP 135/85; PULSE 100
[2024-05-24 20:00] VITALS: RESP 16
[2024-05-24] MEDS: Divalproex Sodium 250 MG TABLET.DR PO (20:06)
[2024-05-24] MEDS: OLANZapine ODT 10 MG TAB.RAPDIS 15 MG TRANSLINGU (20:07)
--- NOTE | 2024-05-25 08:00 | ECG_ITS ---
Test Reason : Syncope Blood Pressure : / mmHG Vent. Rate : 094 BPM Atrial Rate : 094 BPM P-R Int : 148 ms QRS Dur : 068 ms QT Int : 350 ms P-R-T Axes : 068 008 058 degrees QTc Int : 437 ms Normal sinus rhythm Normal ECG When compared with ECG of 22-MAY-2024 10:15, No significant change was found Referred By: Shashank Roberts Electronically Signed By:ANTHONY WELCH
[2024-05-25 09:38] VITALS: RESP 20
--- NOTE | 2024-05-25 12:12 | HO.PSYCHPN ---
Subjective Subjective Date of Service: 05/25/24 Reason For Visit: Schizophrenia Subjective Notes: Conditional Voluntary Interim History: Pt slept through the night. Pt visible on the unit, social with select peers. She denies SI/HI. Improved hygiene. Medication Compliance: Intermittent Side effects from medications: No Attending Groups: No Mental Status Exam Mental Status Exam Narrative: behavior is mostly cooperative dressed in casual attire with overall adequate hygiene; mood is described as good and affect constricted; eye contact appropriate; Speech is difficult to understand (given accent/edentulous/TD) but is spontaneous and normal rate, volume and prosody and not pressured; TD present which is baseline; no psychomotor agitation/retardation present; thought process seems goal directed concrete poorly informational; Thought content difficult to understand able to give information regarding living situation some of her medication; denies any SI/HI. Accepted transfer to psychiatric unit does not want long stay some concerns that were difficult to understand Patients insight and judgment impaired not aggressive or agitated no SI or HI Diagnostics Vital Signs (24Hr): Vital Signs - 24 hr 05/24/24 15:40 05/24/24 15:50 05/24/24 16:02 Pulse Rate 86 90 100 Respiratory Rate Blood Pressure 144/68 H 135/73 135/85 05/24/24 20:00 05/25/24 09:38 Pulse Rate Respiratory Rate 16 20 Blood Pressure BMI result Body Mass Index 30.2 Medications Medications Current Medications Acetaminophen (Acetaminophen 325 Mg Tablet) 650 mg PO Q6H PRN PRN Reason: Headache/Pain Mild Scale (1-3) Al Hydroxide/Mg Hydroxide (Magnesium Hydrox/Alum Hydrox 30 Ml Oral.Susp) 30 ml PO Q6H PRN PRN Reason: Heartburn/Nausea Atorvastatin Calcium (Atorvastatin Calcium 80 Mg Tablet) 80 mg PO DAILY [facility] Last Admin: 05/25/24 09:37 Dose: Not Given Brimonidine Tartrate (Brimonidine Tartrate 0.2% Oph 5 Ml Bottle) 1 drop EYE-BOTH BID [facility] Last Admin: 05/25/24 09:37 Dose: Not Given Divalproex Sodium (Divalproex Sodium 250 Mg Tablet.Dr) 250 mg PO BEDTIME [facility] Last Admin: 05/24/24 20:06 Dose: 250 mg Docusate Sodium (Docusate Sodium 100 Mg Capsule) 100 mg PO BID PRN PRN Reason: Constipation Hydroxyzine HCl (Hydroxyzine Hcl 25 Mg Tablet) 25 mg PO Q6H PRN PRN Reason: Anxiety Latanoprost (Latanoprost 0.005 % Ophth Catie 2.5 Ml Drops) 1 drop EYE-BOTH BEDTIME [facility] Last Admin: 05/24/24 20:58 Dose: Not Given Magnesium Hydroxide (Milk Of Magnesia 30 Ml Oral.Susp) 30 ml PO DAILY PRN PRN Reason: Constipation Olanzapine (Olanzapine Odt 10 Mg Tab.Rapdis) 15 mg TRANSLINGU BEDTIME [facility] Last Admin: 05/24/24 20:07 Dose: 15 mg Trazodone HCl (Trazodone Hcl 50 Mg Tablet) 50 mg PO BEDTIME MRX1 PRN PRN Reason: Insomnia Allergies Allergies Allergy/AdvReac Type Severity Reaction Status Date / Time blueberry [Blueberry] Allergy Severe SWELLING Verified 05/12/24 12:03 lisinopril Allergy Intermediate cough Verified 05/12/24 12:03 mushroom Allergy Intermediate SWELLING Verified 05/12/24 12:03 shellfish derived Allergy Unknown UNKNOWN Verified 05/12/24 12:03 [SHELLFISH DERIVED] thioridazine Allergy Unknown Unknown Verified 05/12/24 12:03 tomato [TOMATO] Allergy Unknown UNKNOWN Verified 05/12/24 12:03 CHOCOLATE Allergy Intermediate ITCHING Uncoded 03/20/24 10:09 From MELLARIL Allergy Intermediate SHORTNESS Uncoded 03/20/24 10:09 OF BREATH From THORAZINE Allergy Intermediate SHORTNESS Uncoded 03/20/24 10:09 OF BREATH Assessment & Plan Assessment & Plan (1) Schizophrenia: Qualifiers: Schizophrenia type: undifferentiated schizophrenia Qualified Code(s): F20.3 - Undifferentiated schizophrenia Status: Acute Code(s): F20.9 - Schizophrenia, unspecified (2) HTN (hypertension): Qualifiers: Hypertension type: essential hypertension Qualified Code(s): I10 - Essential (primary) hypertension Status: Acute Code(s): I10 - Essential (primary) hypertension Plan Restart olanzapine and Depakote check labs follow blood pressure coordinate care with outpatient team patient may have had a pending court hearing this will need to be re-evaluated she does have a Jack order 05/25 continue tx. Reason for continued inpatient stay Substantial Risk for: inability to function Time Spent With Patient Time: Total time managing care of this patient today ____ minutes.
--- NOTE | 2024-05-25 13:04 | PC.NURSE ---
Pt signed a three day notice on 05/25/24, up on 05/28/24.
[2024-05-25 20:00] VITALS: RESP 16
[2024-05-25] MEDS: OLANZapine ODT 10 MG TAB.RAPDIS 15 MG TRANSLINGU (20:26)
[2024-05-25] MEDS: Divalproex Sodium 250 MG TABLET.DR PO (20:27)
[2024-05-26] MEDS: Melatonin 3 MG TABLET PO (01:19)
--- NOTE | 2024-05-26 08:58 | HO.PSYCHPN ---
Subjective Subjective Date of Service: 05/26/24 Reason For Visit: Schizophrenia Subjective Notes: 3 Day Interim History: Pt slept through the night. Pt visible on the unit, social with select peers. She denies SI/HI. She is eating well. still declines eye drops for glaucoma, does not have capacity to make medical decisions. mumbles, states she wants to go back home. SW trying to contact OP providers and supports with no luck. No aggression on the unit. Mental Status Exam Mental Status Exam Narrative: behavior is mostly cooperative dressed in casual attire with overall adequate hygiene; mood is described as good and affect constricted; eye contact appropriate; Speech is difficult to understand (given accent/edentulous/TD) but is spontaneous and normal rate, volume and prosody and not pressured; TD present which is baseline; no psychomotor agitation/retardation present; thought process seems goal directed concrete poorly informational; Thought content difficult to understand able to give information regarding living situation some of her medication; denies any SI/HI. Accepted transfer to psychiatric unit does not want long stay some concerns that were difficult to understand Patients insight and judgment impaired not aggressive or agitated no SI or HI Diagnostics Vital Signs (24Hr): Vital Signs - 24 hr 05/25/24 09:38 05/25/24 20:00 Respiratory Rate 20 16 BMI result Body Mass Index 30.2 Medications Medications Current Medications Acetaminophen (Acetaminophen 325 Mg Tablet) 650 mg PO Q6H PRN PRN Reason: Headache/Pain Mild Scale (1-3) Al Hydroxide/Mg Hydroxide (Magnesium Hydrox/Alum Hydrox 30 Ml Oral.Susp) 30 ml PO Q6H PRN PRN Reason: Heartburn/Nausea Atorvastatin Calcium (Atorvastatin Calcium 80 Mg Tablet) 80 mg PO DAILY [facility] Last Admin: 05/25/24 09:37 Dose: Not Given Brimonidine Tartrate (Brimonidine Tartrate 0.2% Oph 5 Ml Bottle) 1 drop EYE-BOTH BID [facility] Last Admin: 05/25/24 20:27 Dose: Not Given Divalproex Sodium (Divalproex Sodium 250 Mg Tablet.Dr) 250 mg PO BEDTIME [facility] Last Admin: 05/25/24 20:27 Dose: 250 mg Docusate Sodium (Docusate Sodium 100 Mg Capsule) 100 mg PO BID PRN PRN Reason: Constipation Hydroxyzine HCl (Hydroxyzine Hcl 25 Mg Tablet) 25 mg PO Q6H PRN PRN Reason: Anxiety Latanoprost (Latanoprost 0.005 % Ophth Catie 2.5 Ml Drops) 1 drop EYE-BOTH BEDTIME [facility] Last Admin: 05/25/24 20:27 Dose: Not Given Magnesium Hydroxide (Milk Of Magnesia 30 Ml Oral.Susp) 30 ml PO DAILY PRN PRN Reason: Constipation Melatonin (Melatonin 3 Mg Tablet) 3 mg PO BEDTIME PRN PRN Reason: Insomnia Last Admin: 05/26/24 01:19 Dose: 3 mg Olanzapine (Olanzapine Odt 10 Mg Tab.Rapdis) 15 mg TRANSLINGU BEDTIME [facility] Last Admin: 05/25/24 20:26 Dose: 15 mg Trazodone HCl (Trazodone Hcl 50 Mg Tablet) 50 mg PO BEDTIME MRX1 PRN PRN Reason: Insomnia Allergies Allergies Allergy/AdvReac Type Severity Reaction Status Date / Time blueberry [Blueberry] Allergy Severe SWELLING Verified 05/12/24 12:03 lisinopril Allergy Intermediate cough Verified 05/12/24 12:03 mushroom Allergy Intermediate SWELLING Verified 05/12/24 12:03 shellfish derived Allergy Unknown UNKNOWN Verified 05/12/24 12:03 [SHELLFISH DERIVED] thioridazine Allergy Unknown Unknown Verified 05/12/24 12:03 tomato [TOMATO] Allergy Unknown UNKNOWN Verified 05/12/24 12:03 CHOCOLATE Allergy Intermediate ITCHING Uncoded 03/20/24 10:09 From MELLARIL Allergy Intermediate SHORTNESS Uncoded 03/20/24 10:09 OF BREATH From THORAZINE Allergy Intermediate SHORTNESS Uncoded 03/20/24 10:09 OF BREATH Assessment & Plan Assessment & Plan (1) Schizophrenia: Qualifiers: Schizophrenia type: undifferentiated schizophrenia Qualified Code(s): F20.3 - Undifferentiated schizophrenia Status: Acute Code(s): F20.9 - Schizophrenia, unspecified (2) HTN (hypertension): Qualifiers: Hypertension type: essential hypertension Qualified Code(s): I10 - Essential (primary) hypertension Status: Acute Code(s): I10 - Essential (primary) hypertension Plan Restart olanzapine and Depakote check labs follow blood pressure coordinate care with outpatient team patient may have had a pending court hearing this will need to be re-evaluated she does have a Jack order 05/25 continue tx. 05/26 continue tx. Reason for continued inpatient stay Substantial Risk for: inability to function Time Spent With Patient Time: Total time managing care of this patient today ____ minutes.
[2024-05-26] MEDS: Atorvastatin Calcium 80 MG TABLET PO (09:22)
[2024-05-26 20:00] VITALS: BP 161/83; PULSE 83; RESP 17; TEMP 36.1; O2SAT 98
[2024-05-26] MEDS: traZODone HCL 50 MG TABLET PO (20:16)
[2024-05-26] MEDS: Divalproex Sodium 250 MG TABLET.DR PO (20:16)
[2024-05-26] MEDS: OLANZapine ODT 10 MG TAB.RAPDIS 15 MG TRANSLINGU (20:17)
[2024-05-26] MEDS: Latanoprost 0.005 % Ophth Sol 2.5 ML DROPS 1 DROP EYE-BOTH (20:17)
[2024-05-27] VITALS: BP 131/62; PULSE 98
[2024-05-27] MEDS: Melatonin 3 MG TABLET PO (00:34)
[2024-05-27 01:27] VITALS: BP 154/74; PULSE 101
[2024-05-27] MEDS: Atorvastatin Calcium 80 MG TABLET PO (08:18)
--- NOTE | 2024-05-27 10:03 | P.PNPSI_ITS ---
Subjective Subjective Date of Service: 05/27/24 Reason For Visit: Schizophrenia Subjective Notes: Conditional Voluntary and 3 Day Interim History: Pt slept through the night. No SI/HI. Visible on the unit, social with select peers. No aggression towards self or others. OP providers were contacted and they did not report any concern. At baseline, she does not have capacity to make medical decisions, has a guardian. Diagnostics Vital Signs (24Hr): Vital Signs - 24 hr 05/26/24 20:00 05/27/24 00:00 05/27/24 01:27 Temperature 97 F Pulse Rate 83 98 101 H Respiratory Rate 17 Blood Pressure 161/83 H 131/62 154/74 H Pulse Oximetry 98 Oxygen Delivery Method Room Air BMI result Body Mass Index 30.2 Medications Medications Current Medications Acetaminophen (Acetaminophen 325 Mg Tablet) 650 mg PO Q6H PRN PRN Reason: Headache/Pain Mild Scale (1-3) Al Hydroxide/Mg Hydroxide (Magnesium Hydrox/Alum Hydrox 30 Ml Oral.Susp) 30 ml PO Q6H PRN PRN Reason: Heartburn/Nausea Atorvastatin Calcium (Atorvastatin Calcium 80 Mg Tablet) 80 mg PO DAILY [facility] Last Admin: 05/27/24 08:18 Dose: 80 mg Brimonidine Tartrate (Brimonidine Tartrate 0.2% Oph 5 Ml Bottle) 1 drop EYE- BOTH BID [facility] Last Admin: 05/27/24 08:19 Dose: Not Given Divalproex Sodium (Divalproex Sodium 250 Mg Tablet.Dr) 250 mg PO BEDTIME [facility] Last Admin: 05/26/24 20:16 Dose: 250 mg Docusate Sodium (Docusate Sodium 100 Mg Capsule) 100 mg PO BID PRN PRN Reason: Constipation Hydroxyzine HCl (Hydroxyzine Hcl 25 Mg Tablet) 25 mg PO Q6H PRN PRN Reason: Anxiety Latanoprost (Latanoprost 0.005 % Ophth Catie 2.5 Ml Drops) 1 drop EYE-BOTH BEDTIM E [facility] Last Admin: 05/26/24 20:17 Dose: 1 drop Magnesium Hydroxide (Milk Of Magnesia 30 Ml Oral.Susp) 30 ml PO DAILY PRN PRN Reason: Constipation Melatonin (Melatonin 3 Mg Tablet) 3 mg PO BEDTIME PRN PRN Reason: Insomnia Last Admin: 05/27/24 00:34 Dose: 3 mg Olanzapine (Olanzapine Odt 10 Mg Tab.Rapdis) 15 mg TRANSLINGU BEDTIME [facility] Last Admin: 05/26/24 20:17 Dose: 15 mg Trazodone HCl (Trazodone Hcl 50 Mg Tablet) 50 mg PO BEDTIME MRX1 PRN PRN Reason: Insomnia Last Admin: 05/26/24 20:16 Dose: 50 mg Allergies Allergies Allergy/AdvReac Type Severity Reaction Status Date / Time blueberry [Blueberry] Allergy Severe SWELLING Verified 05/12/24 12:03 lisinopril Allergy Intermediate cough Verified 05/12/24 12:03 mushroom Allergy Intermediate SWELLING Verified 05/12/24 12:03 shellfish derived Allergy Unknown UNKNOWN Verified 05/12/24 12:03 [SHELLFISH DERIVED] thioridazine Allergy Unknown Unknown Verified 05/12/24 12:03 tomato [TOMATO] Allergy Unknown UNKNOWN Verified 05/12/24 12:03 CHOCOLATE Allergy Intermediate ITCHING Uncoded 03/20/24 10:09 From MELLARIL Allergy Intermediate SHORTNESS Uncoded 03/20/24 10:09 OF BREATH From THORAZINE Allergy Intermediate SHORTNESS Uncoded 03/20/24 10:09 OF BREATH Assessment & Plan Assessment & Plan (1) Schizophrenia: Qualifiers: Schizophrenia type: undifferentiated schizophrenia Qualified Code(s): F20.3 - Undifferentiated schizophrenia Status: Acute Code(s): F20.9 - Schizophrenia, unspecified (2) HTN (hypertension): Qualifiers: Hypertension type: essential hypertension Qualified Code(s): I10 - Essential (primary) hypertension Status: Acute Code(s): I10 - Essential (primary) hypertension Plan Restart olanzapine and Depakote check labs follow blood pressure coordinate care with outpatient team patient may have had a pending court hearing this will need to be re-evaluated she does have a Jack order 05/25 continue tx. 05/26 continue tx. 05/27 continue tx. Reason for continued inpatient stay Substantial Risk for: inability to function Time Spent With Patient Time: Total time managing care of this patient today ____ minutes.
[2024-05-27 19:39] VITALS: RESP 18
[2024-05-27] MEDS: Latanoprost 0.005 % Ophth Sol 2.5 ML DROPS 1 DROP EYE-BOTH (20:06)
[2024-05-27] MEDS: OLANZapine ODT 10 MG TAB.RAPDIS 15 MG TRANSLINGU (20:08)
[2024-05-27] MEDS: Divalproex Sodium 250 MG TABLET.DR PO (20:09)
[2024-05-27] MEDS: traZODone HCL 50 MG TABLET PO (20:10)
--- NOTE | 2024-05-28 09:15 | PC.NURSE ---
Reji refused her morning lipitor and eye drops.
--- NOTE | 2024-05-28 09:15 | PM.PSYDC ---
DS: Providers Provider Date of Service: 05/28/24 Date of admission: 05/23/24 17:23 Date of discharge: 05/28/24 Primary care physician: Unknown Physician DS: Diagnosis Discharge Diagnosis (1) Schizophrenia: Status: Acute (2) HTN (hypertension): Status: Acute DS: Medications Discharge Medications Home Medications: Home Medications ?Medication ?Instructions ?Recorded ?Confirmed latanoprost 0.005 % eye drops 1 drp ophthalmic (eye) BEDTIME 05/23/24 05/23/24 Previous Rx's ?Medication ?Instructions ?Recorded brimonidine 0.2 % eye drops 1 drp ophthalmic (eye) BID 30 days 05/22/24 #5 mL omeprazole 20 mg capsule,delayed 20 mg PO DAILY@0630 #90 caps 05/22/24 release simethicone 80 mg chewable tablet 80 mg PO NEEDED PRN Dyspepsia 05/22/24 30 days #30 tabs atorvastatin 80 mg tablet 80 mg PO DAILY #30 tabs 05/28/24 divalproex 250 mg tablet,delayed 250 mg PO BEDTIME #30 tabs 05/28/24 release melatonin 3 mg tablet 3 mg PO BEDTIME PRN Insomnia #30 05/28/24 tabs olanzapine 15 mg tablet 15 mg PO BEDTIME #30 tabs 05/28/24 trazodone 50 mg tablet 50 mg PO BEDTIME PRN Insomnia #30 05/28/24 tabs Mental Status Exam Mental Status Exam Narrative: Appearance: wearing casual clothing, good hygiene, in NAD Behavior: cooperative Psychomotor: no agitation or retardation noted Speech: mumbling, difficult to understand, spontaneous TP: disorganized, TC: wanting to go home Mood: okay' Affect: bright, non labile. SI: none HI: none VH/AH: no overt signs Delusions: none Insight/judgment: impaired x 2. DS: Summary Hospital Course Hospital Course: Patient seen at 0900 Patient is a 74-year-old woman with history of schizoaffective disorder (versus schizophrenia), on a [facility], diabetes, hypertension, RLS, GERD who presents to the ED, sent by outpatient nurse for disorganized behavior, yelling in the hallway, broken glass in her room, unable to manage her diabetic care and concern for inability to care for self. It is unclear to what extent patient has been noncompliant with medication; she has been refusing medication here. Patient is a limited historian and difficult to understand, possibly due to accent verse edentulous. She tells news writer that she has been taking her medications and that she never stopped taking them. Patient says she has been living in [place] for 35 years and she knows she [facility]. She denies any current SI; she reports a history of SI but says it was a long time ago. She endorses auditory hallucinations and says they do... But they don't do.. Patient says she does not want to be in the hospital; she wants to discharge tomorrow and says do you know I am not doing anything wrong? I am not dangerous.. And because she has court and on Saturday she has healthcare people that are coming to visit. HOSPITAL COURSE On the unit, pt was admitted initially to [facility] under the care of Dr. Chevy Man. Please referred to his notes for further detail. In brief, pt was restarted on Olanzapine at bedtime. She was also continued on depakote 250mg po qhs. She declined medication for glaucoma. She does not show understanding of medical conditions, nor appreciation of risks versus benefits of accepting or refusing treatment. She does not have capacity to make medical decisions. She has a guardian and a kev. While on the unit, she gradually presented as calmer, more visible, social with select peers. No aggression towards self or others. She was sleeping and eating well. Her hygiene is good. She took olanzapine and depakote. No SI/HI. Collateral information gathered from her outpatient team, who denied any safety concerns and will picker feeder pt at end of 3 day notice. During this admission, pt had syncopal episode. She was in the bathroom and had unwitnessed fall. Her SBP at the time was in the 60's, HR wnl. She was transferred to medicine. No physical trauma from fall. However, BP medication Nifedipine 30mg po daily was discontinued. She needs to follow up with PCP for BP as when she first arrived to ED her SBP was in 200's. Status at Discharge Cognitive/behavioral status at discharge: Pt is bright, non labile. No SI/HI. No overt psychosis or delusions. no aggression towards self or others. Sleeping and eating well. Functional status at discharge: independent ambulation Overall status at discharge: patient is progressing back to baseline Time Spent with Patient Time attestation: Total time managing care of this patient today ___35_ minutes. Time spent: Greater than 30 minutes Discharge Plan Discharge Anticipated Discharge Date/Time: 05/28/24 09:04 Patient Disposition: Home, Self-Care Discharge Diagnosis: schizophrenia Referrals: [facility] [Other] - 1 Day (Your nursing will start once you get home. If there are any questions or concerns please call the number above.) Terrell Martin [Other] - 06/02/24 9:45 am (Your services will continue on SaturdayJun.02 as scheduled. Your nurse will be there from 9:45-12:45 every saturday. If any questions or concerns please call the number listed above.) Goran,Bradley Farris MD [Physician] - 1 Week Discharge Medications: New atorvastatin 80 mg Tablet 80 mg PO DAILY Qty: 30 0RF divalproex 250 mg Tablet,Delayed Release (Dr/Ec) 250 mg PO BEDTIME Qty: 30 0RF olanzapine 15 mg tablet 15 mg PO BEDTIME Qty: 30 0RF trazodone 50 mg Tablet 50 mg PO BEDTIME PRN (Reason: Insomnia) Qty: 30 0RF melatonin 3 mg Tablet 3 mg PO BEDTIME PRN (Reason: Insomnia) Qty: 30 0RF Continued latanoprost 0.005 % drops 1 drp ophthalmic (eye) BEDTIME brimonidine 0.2 % drops 1 drp ophthalmic (eye) BID 30 Days Qty: 5 0RF omeprazole 20 mg capsule,delayed release(DR/EC) 20 mg PO DAILY@0630 Qty: 90 3RF simethicone 80 mg Tablet,Chewable 80 mg PO NEEDED PRN (Reason: Dyspepsia) 30 Days Qty: 30 0RF Discontinued hydroxyzine HCl [Atarax] 25 mg Tablet 25 mg PO PRN (Reason: Anxiety) Lovenox 40 mg subcut DAILY Maalox 30 ml PO QID PRN (Reason: Heartburn) Milk of Magnesia liquid 30 ml PO DAILY PRN (Reason: Constipation) omeprazole 20 mg PO DAILY@0630 trazodone 50 mg Tablet 50 mg PO BEDTIME MRX1 PRN (Reason: Insomnia) 30 Days Qty: 30 0RF nicotine (polacrilex) 2 mg Gum 4 mg buccal Q2H PRN (Reason: Nicotine Cravings) 7 Days Qty: 14 0RF olanzapine 5 mg Tablet 5 mg PO DAILY 30 Days Qty: 30 0RF nicotine 21 mg/24 hr Patch 24 Hour 21 mg transdermal DAILY PRN (Reason: smoking cessation) 7 Days Qty: 7 0RF olanzapine 10 mg Tablet,Disintegrating 15 mg translingual BEDTIME 30 Days Qty: 45 0RF atorvastatin 80 mg tablet 80 mg PO DAILY Qty: 30 0RF divalproex 250 mg tablet,delayed release (DR/EC) 250 mg PO BEDTIME 30 Days Qty: 30 0RF docusate sodium [Colace] 100 mg capsule 100 mg PO DAILY PRN (Reason: Constipation) 30 Days Qty: 30 0RF nifedipine 30 mg Tablet Extended Release 24hr 30 mg PO DAILY Qty: 0 0RF Protocol: Hold for SBP< HOLD for SBP < : 90 Discharge Orders: Discharge Order (Routine); Ordered 05/28/24 Ordered By: Swathi Moe Diet: Regular diet Activity on Discharge: As tolerated Stand Alone Forms: Patient Portal Discharge page Print Language: Welsh Care Plan Goals: 1. maintain mood 2. No SI/HI 3. less psychosis or delusions 4. No aggression towards self or others. Health Concerns: Follow up PCP Plan of Treatment: 1. Take medications as prescribed 2. Go to nearest ED or call 911 in event of emergency Assessment: Pt with less labile affect. No SI/HI. No overt psychosis or delusional content. Sleeping and eating well.
--- NOTE | 2024-05-28 09:15 | PC.NURSE ---
pt refused morning vital signs
== END 2024-05-28 14:10 | disposition home or self-care (01) | DRG 885 ==
PROVIDERS: Admitting Provider Psychiatry & Neurology Psychiatry; Visit Provider Psychiatry & Neurology Psychiatry
DX: F20.3 Undifferentiated schizophrenia (principal); Z87.891 Personal history of nicotine dependence; Z79.899 Other long term (current) drug therapy
CPT/HCPCS: 93005

== ENCOUNTER → 2024-05-23 17:23 | Outpatient (BNV) | payer OTHER, SELFPAY | PROVIDERS: Admitting Provider Psychiatry & Neurology Psychiatry; Visit Provider Social Worker | DX: F20.3 Undifferentiated schizophrenia (principal); I10 Essential (primary) hypertension | CPT/HCPCS: 99231; 99239 ==

== ENCOUNTER → 2024-05-23 17:23 | Outpatient (BNV) | payer OTHER, SELFPAY | PROVIDERS: Admitting Provider Psychiatry & Neurology Psychiatry; Visit Provider Psychiatry & Neurology Psychiatry | DX: F20.3 Undifferentiated schizophrenia (principal); I10 Essential (primary) hypertension | CPT/HCPCS: 90792 ==

== ENCOUNTER 2024-06-10 14:07 | Outpatient (AMB) | payer OTHER, SELFPAY ==
[2024-06-10 14:08] VITALS: BP 144/78; PULSE 84; O2SAT 96; BMI 37.7
--- NOTE | 2024-06-10 14:08 | A.OFFPC_ITS ---
Vital Signs 06/10/24 14:08 Height 5 ft 2 in Weight 206 lb BMI 37.7 BP 144/78 H Blood Pressure Location Lt brachial Position Sitting Pulse 84 Pulse Source Pulse Oximeter Pulse Oximetry (%) 96 Oxygen Delivery Method Room Air Intake Visit Reasons: [facility] 05/28 Intake Note: Patient is here for hospital discharge follow up. Patient was discharged on 05/28/24 Special Events Coordinator Required: No Allergies blueberry [Blueberry] Allergy (Severe, Verified 06/10/24 14:09) SWELLING lisinopril Allergy (Intermediate, Verified 06/10/24 14:09) cough mushroom Allergy (Intermediate, Verified 06/10/24 14:09) SWELLING shellfish derived [SHELLFISH DERIVED] Allergy (Unknown, Verified 06/10/24 14:09) UNKNOWN thioridazine Allergy (Unknown, Verified 06/10/24 14:09) Unknown tomato [TOMATO] Allergy (Unknown, Verified 06/10/24 14:09) UNKNOWN CHOCOLATE Allergy (Intermediate, Uncoded 06/10/24 14:09) ITCHING From MELLARIL Allergy (Intermediate, Uncoded 06/10/24 14:09) SHORTNESS OF BREATH From THORAZINE Allergy (Intermediate, Uncoded 06/10/24 14:09) SHORTNESS OF BREATH Medication List - Last Reconciled 06/10/24 by Violeta James PA-C atorvastatin 80 mg PO DAILY brimonidine 0.2% 1 drp ophthalmic (eye) BID 30 days divalproex 250 mg PO BEDTIME latanoprost 0.005% 1 drp ophthalmic (eye) BEDTIME melatonin 3 mg PO BEDTIME PRN olanzapine 15 mg PO BEDTIME omeprazole 20 mg PO DAILY@0630 simethicone 80 mg PO NEEDED PRN 30 days trazodone 50 mg PO BEDTIME PRN Tobacco use date assessed: 11/21/23 Fall risk assessment: No Falls in past year Last assessed Fall Risk: 06/10/24 Dental Screening Dental Screen Date: 11/21/[address] [facility] 05/28 HPI Details 74-year-old obese female with past medic al history of controlled diabetes mellitus, hypercholesterolemia, hypertension, GERD, and schizophrenia last seen by Dr. Zimmer February 2024 coming in for hospital discharge follow up. In review of the notes, patient presented to the ED after being sent by outpatient nurse for disorganized behavior and medication noncompliance. Patient was admitted to psychiatric floor patient was restarted on olanzapine and Depakote and mood eventually stabilized. Admission was complicated by syncopal episode secondary to hypotension and nifedipine 30 mg was discontinued. Patient presents alone to the office today and has no acute concerns. She does mentioned she has bloating which began about 6 months ago and she takes Gas-X for which helps. She is scheduled to follow with her psychiatric provider in early June regarding recent hospitalization. She has been monitoring her blood pressures at home which she mentions have all been within the normal range and never above 130 systolic. Denies any chest pain or shortness of breath and has not not had any further syncopal episodes. Denies any side effects from the medications. [facility] Medical History Schatzki's ring Glaucoma GERD (gastroesophageal reflux disease) Hyperlipidemia Bipolar 1 disorder Surgical History History of cataract surgery History of total abdominal hysterectomy History of section Family History Father No problems noted. Mother No problems noted. Social History Household Members: Unknown / Unable to assess Household Members Other:: patient refusing to respond Housing: Unknown / Unable to assess Housing Other:: patient refusing to respond Unable to assess alcohol history related to: Unknown Alcohol intake: never Patient Tobacco Use Status: Former Tobacco user Tobacco use type: Cigarette e-Cigarette/Vaping Use: Never Used Second Hand Smoke Exposure: No service: No Current occupational status: disabled Sexual orientation: Straight/Heterosexual Cognitive needs: Yes Hearing needs: Yes Vision needs: Yes Questionnaire Thrive Questionnaire Date Thrive assessed: 10/03/23 I am a: Patient What is your living situation today?: I have a steady place to live Within the past 12 months, did the food you bought not last and you didn't have the money to get more?: Never true Within the past 12 months, did you worry whether your food would run out before you got money to buy more?: Never true Do you have trouble paying for medicines?: No Do you have trouble getting transportation to medical appointments?: No Do you have trouble paying your heating and electricity bill?: No Do you have trouble taking care of your child, family member or friend?: No Do you have trouble with day-to-day activities such as bathing, preparing meals, shopping, managing finances, etc.?: No Are you currently unemployed and looking for a job?: Yes Are you interested in more education?: No Please select the resources that you would like help with: None Currently or been in a relationship where the following occur: No concerns re ported THRIVE Score: 0 AUDIT C Alcohol Use Questionnaire (AUDIT-C) 1. How often do you have a drink containing alcohol?: Never 3. How often do you have six or more drinks on one occasion?: Never Total Score: 0 DELFINO-7 AMB Questionnaire DELFINO-7 Date DELFINO - 7 assessed: 11/21/23 Source: Developed by Drs. Kevin Murray, Vivian Mclain, Henrique Elise and colleagues, with an educational ankit from [employer]. Review of Systems Const Denies chills, Denies fever(s) and Denies headache(s) Eyes Reports no additional complaints ENT Denies dizziness and Denies headache(s) Card Denies chest pain, Denies syncope, Denies lightheadedness and Denies dyspnea Resp Denies dyspnea GI Denies abdominal pain and Reports bloating Details: Urinary incontinence for the last several months Musc Reports no additional complaints and Denies abnormal gait Skin/Breast Reports system reviewed and no additional complaints, except as documented Neuro Denies abnormal gait, Denies dizziness, Denies syncope and Denies headache(s) Psych Reports no additional complaints Physical exam (Primary Care) Vital Signs: Last Vital Signs Pulse 84 06/10/24 14:08 BP 144/78 H 06/10/24 14:08 Pulse Ox 96 06/10/24 14:08 Oxygen Delivery Method Room Air 06/10/24 14:08 BMI result Body Mass Index 37.7 Tobacco/Smoking Status: Tobacco use Status Tobacco use date assessed 11/21/23 06/10/24 14:09 Patient Tobacco Use Status Former Tobacco user 06/10/24 14:09 Tobacco use type Cigarette 06/10/24 14:09 e-Cigarette/Vaping Use Never Used 06/10/24 14:09 Thrive Assessment: Date of Thrive Assessment Date Thrive assessed 10/03/23 06/10/24 14:09 Currently or been in a relationship where the following occur: No concerns reported Const General: cooperative, healthy appearing, comfortable and no acute distress Orientation/consciousness: patient oriented x3 [facility] Head: Yes normocephalic Ears: hearing grossly normal bilaterally General nose exam: Normal external nose present Eyes General: appearance normal, both eyes and all related structures Conjunctivae: conjunctivae normal Neck Neck: Yes full ROM and Yes no lymphadenopathy Resp Effort & Inspection: normal respiratory effort Auscultation: clear to auscultation bilaterally, no crackles, no rales, no rhonchi and no wheezes Cardio Rate: regular rate Rhythm: regular rhythm GI Palpation (GI): Soft to palpation, not firm and nontender General: Yes no CVA tenderness Back/Spine/Pelvis Back: no CVA tenderness Skin General skin exam: no rashes or lesions noted Neuro General: patient oriented x3 Gait exam (Neuro): Normal gait present Extrem General: Yes normal to inspection, Yes full ROM and No edema Psych Affect: normal affect Attitude: cooperative Insight: Good insight present (Psych) Judgement: Good judgement present (Psych) Coding Level of Care Code Est Pt Level 3 (43736) Diagnoses Pure hypercholesterolemia E78.00 Hyperlipidemia type: pure hypercholesterolemia 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 Triglyceride goal of less than 150 and LDL goal of less than 100. (2) Schizophrenia: Code(s): F20.9 - Schizophrenia, unspecified Category: Medical Qualifiers: Schizophrenia type: undifferentiated schizophrenia Qualified Code(s): F20.3 - Undifferentiated schizophrenia Plan: Continue on present medication. Patient has follow up with psychiatric provider in June. (3) GERD (gastroesophageal reflux disease): Code(s): K21.9 - Gastro-esophageal reflux disease without esophagitis Category: Medical Qualifiers: Esophagitis presence: without esophagitis Qualified Code(s): K21.9 - Gastro-esophageal reflux disease without esophagitis Plan: Avoid trigger foods such as citrus, tomato products, soda, caffeine, spicy foods and other foods that may be irritating to your stomach. Avoid laying flat 3-4 hours after eating and elevate the head of the bed 30 degrees to prevent acid from moving into the esophagus. (4) HTN (hypertension): Code(s): I10 - Essential (primary) hypertension Category: Medical Qualifiers: Hypertension type: essential hypertension Qualified Code(s): I10 - Essential (primary) hypertension Plan: Continue on current blood pressure medication. Avoid salt intake and encourage healthy diet and regular exercise. Nifedipine was discontinued while in the hospital and reported blood pressures have been within normal limits. Blood pressure slightly elevated in the office today follow up in 2 months for repeat evaluation. Advised patient to reach out sooner if blood pressures at home are persistently over 140/90. (5) Obesity (BMI 30-39.9): Code(s): E66.9 - Obesity, unspecified Category: Medical Plan: Healthy diet and regular exercise is encouraged. Plan This note was constructed using voice recognition software. While every effort has been made to ensure accuracy and group practice pediatrician, still areas may have been included sometimes these areas may affect the content or meeting of the given symptoms. Total time spent caring for the patient today was 30 minutes. This includes time spent before the visit reviewing the chart, time spent during the visit, and time spent after the visit and documentation.
== END 2024-06-10 14:52 | disposition home or self-care (01) ==
PROVIDERS: PCP Internal Medicine
DX: E78.00 Pure hypercholesterolemia, unspecified (principal); F20.3 Undifferentiated schizophrenia; E66.812 Obesity, class 2; Z68.37 Body mass index [BMI] 37.0-37.9, adult; K21.9 Gastro-esophageal reflux disease without esophagitis; I10 Essential (primary) hypertension

== ENCOUNTER → 2024-06-10 14:07 | Outpatient (BNVA) | payer OTHER, SELFPAY | PROVIDERS: PCP Internal Medicine | DX: E78.00 Pure hypercholesterolemia, unspecified (principal); F20.3 Undifferentiated schizophrenia; K21.9 Gastro-esophageal reflux disease without esophagitis; I10 Essential (primary) hypertension; E66.9 Obesity, unspecified; Z68.37 Body mass index [BMI] 37.0-37.9, adult; Z79.899 Other long term (current) drug therapy | CPT/HCPCS: 99212 ==

== ENCOUNTER 2024-09-04 12:17 | Inpatient (IN) | payer OTHER, SELFPAY ==
--- NOTE | 2024-09-04 12:29 | ED_ITS ---
HPI - General Adult General Chief complaint: Psychiatric Symptoms Stated complaint: SECTION 12,NOT TAKING MEDS Time Seen by Provider: 09/04/24 12:29 Source: patient and EMS Mode of arrival: EMS Limitations: other (severely disorganized) History of Present Illness ED Provider: Soraya Palumbo PA-C HPI narrative: Patient is a 74 year old assigned female at with a history of schizophren ia, HTN, and HLD presenting to the emergency department today severely disorganized. Patient is rambling - clearly paranoid. Making claims we are trying to poison her and ruin her life. Patient refusing to answer questions or participate in care. Related Data Home Medications ?Medication ?Instructions ?Recorded ?Confirmed latanoprost 0.005 % eye drops 1 drp ophthalmic (eye) BEDTIME 05/23/24 06/10/24 Previous Rx's ?Medication ?Instructions ?Recorded brimonidine 0.2 % eye drops 1 drp ophthalmic (eye) BID 30 days 05/22/24 #5 mL omeprazole 20 mg capsule,delayed 20 mg PO DAILY@0630 #90 caps 05/22/24 release simethicone 80 mg chewable tablet 80 mg PO NEEDED PRN Dyspepsia 05/22/24 30 days #30 tabs atorvastatin 80 mg tablet 80 mg PO DAILY #30 tabs 05/28/24 divalproex 250 mg tablet,delayed 250 mg PO BEDTIME #30 tabs 05/28/24 release melatonin 3 mg tablet 3 mg PO BEDTIME PRN Insomnia #30 05/28/24 tabs olanzapine 15 mg tablet 15 mg PO BEDTIME #30 tabs 05/28/24 trazodone 50 mg tablet 50 mg PO BEDTIME PRN Insomnia #30 05/28/24 tabs Allergies Allergy/AdvReac Type Severity Reaction Status Date / Time blueberry [Blueberry] Allergy Severe SWELLING Verified 09/04/24 12:35 lisinopril Allergy Intermediate cough Verified 09/04/24 12:35 mushroom Allergy Intermediate SWELLING Verified 09/04/24 12:35 shellfish derived Allergy Unknown UNKNOWN Verified 09/04/24 12:35 [SHELLFISH DERIVED] thioridazine Allergy Unknown Unknown Verified 09/04/24 12:35 tomato [TOMATO] Allergy Unknown UNKNOWN Verified 09/04/24 12:35 CHOCOLATE Allergy Intermediate ITCHING Uncoded 09/04/24 12:35 From MELLARIL Allergy Intermediate SHORTNESS Uncoded 09/04/24 12:35 OF BREATH From THORAZINE Allergy Intermediate SHORTNESS Uncoded 09/04/24 12:35 OF BREATH Review of Systems Review of Systems: Yes Other (patient refused to participate in ROS) Psychiatric: Psychiatric: Reports paranoia PMFSH Past Medical History Attestation statement: The following information was validated with the patient. Source: old records reviewed and nursing notes reviewed Medical History Schatzki's ring Glaucoma GERD (gastroesophageal reflux disease) Hyperlipidemia Bipolar 1 disorder Surgical History History of cataract surgery History of total abdominal hysterectomy History of section Family History Family History Father No problems noted. Mother No problems noted. Social History Social History Household Members: Unknown / Unable to assess Household Members Other:: patient refusing to respond Housing: Unknown / Unable to assess Housing Other:: patient refusing to respond Unable to assess alcohol history related to: Unknown Alcohol intake: never Patient Tobacco Use Status: Former Tobacco user Tobacco use type: Cigarette Smoked in Last 30 Days: No e-Cigarette/Vaping Use: Never Used Second Hand Smoke Exposure: No Use of substances other than those prescribed or required for medical reasons: No service: No Current occupational status: disabled Sexual orientation: Straight/Heterosexual Cognitive needs: Yes Hearing needs: Yes Vision needs: Yes Physical Exam ED Vital Signs: Vital Signs - 24 hr 09/04/24 12:30 09/04/24 12:36 09/04/24 14:08 Pulse Rate 67 Respiratory Rate 16 16 14 Pulse Oximetry 97 Oxygen Delivery Method Room Air BMI result Body Mass Index 26.6 Const General: alert and awake Nutritional Appearance: well nourished Orientation/consciousness: oriented to person and oriented to place Limitations: behavioral limitations HENMT Head: Yes normal to inspection and Yes atraumatic Ears: hearing grossly normal bilaterally and external ears normal General nose exam: Normal external nose present, no nasal discharge noted and no epistaxis Face and sinus: Yes normal facial exam, No abrasion and No laceration Mouth: Normal oral and palatal mucosa present, no drooling and no muffled voice Eyes General: appearance normal, both eyes and all related structures Periorbital: periorbital findings normal Eyelids: Yes eyelids normal Conjunctivae: conjunctivae normal Pupils: Equal, round and reactive pupils present EOM: EOMs intact bilaterally Neck Neck: Yes normal visual inspection, Yes full ROM and Yes no lymphadenopathy Chest Chest palpation & inspection: normal inspection of the chest Resp Effort & Inspection: normal respiratory effort and able to speak in complete sentences GI Inspection: Yes normal to inspection Neuro General: oriented to person, oriented to place and moves all extremities Cranial nerves: Yes Equal, round and reactive pupils present Cognition (Neuro): normal cognition Extrem General: Yes normal to inspection, Yes full ROM and Yes capillary refill normal Psych Appearance: grossly normal Affect: Labile affect present Attitude: Belligerent attititude/behavior present Thought process: Confabulating thought process present Thought content: Paranoid delusions present Insight: Poor insight present (Psych) Judgement: Poor judgement present (Psych) Medications Administered Discontinued Medications Generic Name Dose Route Start Last Admin Trade Name Freq PRN Reason Stop Dose Admin Lorazepam 2 mg 09/04/24 12:42 09/04/24 12:50 Lorazepam 2 Mg/Ml Vial IM 09/04/24 12:43 2 mg ONCE ONE Administration Olanzapine 5 mg 09/04/24 12:42 09/04/24 12:50 Olanzapine 10 Mg Vial IM 09/04/24 12:43 5 mg ONCE ONE Administration Medical Decision Making Medical Decision Making MDM Narrative: Patient is a 74 year old assigned female at with a history of schizophrenia, HTN, and HLD presenting to the emergency department today severely disorganized. Patient's physical exam showed a very psychiatricly decompensated individual. Patient refusing all labs. Patient willingly accepted IM Zyprexa and Ativan. CARE team evaluated the patient and recommended inpatient level of psychiatric care. Differential Diagnosis Differential Diagnoses: The differential diagnosis associated with the presentation includes Psychosis Paranoia Decompensation Admission/Observation Consideration of admission/observation: Escalation of care including admission/observation considered Patient to be admitted for inpatient psychiatric care. Consult Healthcare Provider Management of the patient was discussed with: Behavioral Health Provider (spoke to the CARE team as noted in the MDM Rationale portion of this note.) Independent Historian Clinical information obtained from an independent historian. History obtained from or confirmed by: EMS (EMS provided additional history) Discharge Plan Discharge Clinical Impression: Schizophrenia Patient Disposition: Still a Patient Prescriptions: No Action latanoprost 0.005 % drops 1 drp ophthalmic (eye) BEDTIME atorvastatin 80 mg Tablet 80 mg PO DAILY Qty: 30 0RF divalproex 250 mg Tablet,Delayed Release (Dr/Ec) 250 mg PO BEDTIME Qty: 30 0RF olanzapine 15 mg tablet 15 mg PO BEDTIME Qty: 30 0RF trazodone 50 mg Tablet 50 mg PO BEDTIME PRN (Reason: Insomnia) Qty: 30 0RF melatonin 3 mg Tablet 3 mg PO BEDTIME PRN (Reason: Insomnia) Qty: 30 0RF brimonidine 0.2 % drops 1 drp ophthalmic (eye) BID 30 Days Qty: 5 0RF omeprazole 20 mg capsule,delayed release(DR/EC) 20 mg PO DAILY@0630 Qty: 90 3RF simethicone 80 mg Tablet,Chewable 80 mg PO NEEDED PRN (Reason: Dyspepsia) 30 Days Qty: 30 0RF Interventions: Dickson-Suicide Risk Severity Scale Last Done: 09/04/24 12:36 Print Language: Ethiopian
[2024-09-04 12:30] VITALS: PULSE 67; PULSE 86; RESP 16; O2SAT 94; O2SAT 97; BMI 26.6
[2024-09-04 12:36] VITALS: RESP 16
[2024-09-04] MEDS: LORazepam 2 MG/ML VIAL IM (12:50)
[2024-09-04] MEDS: OLANZapine 10 MG VIAL 5 MG IM (12:50)
--- NOTE | 2024-09-04 13:01 | PC.NURSE ---
Reji comes in from home after EMS found her barricading herself in her house. Her primary care called in a section 12 because she hasnt left the house in over a week and she has not been compliant with her medications. Pt has a history of being non-compliant with medications. Pt was agitated upon arrival to the ED, yelling at staff, refusing to foreign exchange position clerk. Pt was willing to change top but was unwilling to change bottoms. This RN originally offered PO medications, pt declined but continued to be verbally and occasionally physical aggressive. Pt did ultimately receive IM Zyprexa and IM Ativan which she took willingly in her gluteal muscles. Patient is now resting on her bed in BH 1, respirations even and unlabored, no apparent distress noted
--- NOTE | 2024-09-04 13:31 | MHC.CARE ---
Pt will be a [facility]
[2024-09-04 14:08] VITALS: RESP 14
--- NOTE | 2024-09-04 14:09 | PC.NURSE ---
Patient continues to refuse to allow this RN to touch her for blood work, vitals or other patient care. Patient is now resting on bed, respirations even and unlabored, no apparent distress is noted
--- NOTE | 2024-09-05 01:21 | MHC.EDTECH ---
Patient continues to refuse all labs, urine sample, EKG and vitals. Several attempts have been made.
--- NOTE | 2024-09-05 07:01 | PC.NURSE ---
assumed care of patient at 0645, patient appears to be sleeping, respirations even and unlabored, no apparent distress noted. Continue plan of care for [facility] psych bedsearch
[2024-09-05 07:03] VITALS: RESP 14
--- NOTE | 2024-09-05 07:58 | PHA.MEDREC ---
Pharmacy Consult ? Medication Reconciliation RN has completed the medication reconciliation, [facility] reviewed
--- NOTE | 2024-09-05 13:12 | PC.NURSE ---
patient continues to refuse EKG, vtials, and other care. Pt did however stop to talk with this RN and a positive interaction was had rather than yelling
[2024-09-05 15:24] VITALS: PULSE 94; RESP 18; O2SAT 98
--- NOTE | 2024-09-05 15:47 | PC.NURSE ---
Pt was agreeable to vital signs, did refuse blood pressure. Continues to refuse labs
[2024-09-05 23:55] LABS: Appearance Urine Clear; Color Urine Yellow; Glucose Urine UA Negative (Negative); Leukocyte Esterase Urine Negative (Negative); Nitrite Urine Negative (Negative); Specific Gravity - Urine 1.015 (1.005-1.025); Urine Blood Negative (Negative); Urine Ketones Negative (Negative); Urine Protein Negative (Neg-Trace)
[2024-09-06 00:04] LABS: Amphetamine Screen Urine Not Detected (Not Detect); Barbiturates, Urine Not Detected (Not Detect); Benzodiazepines Screen Urine Not Detected (Not Detect); Buprenorphine Scr Not Detected (Not Detect); Cannabinoid Screen Urine Not Detected (Not Detect); Cocaine Screen Urine Not Detected (Not Detect); Fentanyl, urine Not Detected (Not Detect); Methadone Screen, Urine Not Detected (Not Detect); Opiate Screen Urine Not Detected (Not Detect); Oxycodone Screen Urine Not Detected (Not Detect); Phencyclidine Screen Urine Not Detected (Not Detect)
[2024-09-06 04:43] VITALS: BP 175/108; PULSE 89; RESP 16; TEMP 36.5; O2SAT 99
[2024-09-06 05:18] VITALS: BP 175/108
[2024-09-06] MEDS: NIFEdipine ER 60 MG TAB.ER.24 PO (05:18)
--- NOTE | 2024-09-06 05:59 | PC.NURSE ---
Patient slept most part of the night, patient has been refusing all cares, however agreed to VS and in providing urine sample, UA negative, BP 175/108, provider notified/ordered to administer AM scheduled Nifedipine 60 mg early, patient with multiple education attempt, agreed to take it, patient was assessed by care team, disposition sec-12 inpatient bed search, will continue to monitor
[2024-09-06 06:57] VITALS: RESP 16
--- NOTE | 2024-09-06 06:58 | PC.NURSE ---
Assumed care of patient at 0645, patient appears to be sleeping, respirations even and unlabored, no apparent distress noted. Continue plan of care for [facility] bedsearch
--- NOTE | 2024-09-06 13:12 | PC.NURSE ---
Pt up eating lunch at this time, offering no complaints to this RN at this time
[2024-09-06 17:48] VITALS: PULSE 71; RESP 16; O2SAT 97
--- NOTE | 2024-09-06 19:24 | PC.NURSE ---
patient appears to remain at rest presently respirations are even and unlabored patient appears in no distress.
[2024-09-06 20:08] VITALS: RESP 18
[2024-09-07 06:08] VITALS: RESP 14
--- NOTE | 2024-09-07 06:08 | MHC.EDTECH ---
PT refused AM vital signs. Respirations counted and documented. RN aware
--- NOTE | 2024-09-07 09:28 | PC.NURSE ---
pt refusing all medications. encouraged to take meds for BP bc her BP was high
[2024-09-07 16:00] VITALS: BMI 31.9
[2024-09-07 16:15] VITALS: BP 210/80; PULSE 98; RESP 18; TEMP 37; O2SAT 99
--- NOTE | 2024-09-07 17:36 | PC.NURSE ---
Patient arrived from ED Pod via w/c. Sec 12B. Pt is 74 y.o., living at home alone. Pt is alert, oriented to self, not sure if oriented to place, refusing respond. She is known for previous care. She was noncompliant with meds for extended period of time, still refusing to take. Paranoid, believing she is being poisoned. Hx of Schizophrenia, Bipolar D/o, GERD, Glaucoma, Hyperlipidemia, Esophageal obstruction. Speech hard to understand, muffled, pressured. Pt signed one release paper for her daughter, took her almost an hour to do so. Focused on reading one piece of paper, not responding to questions. Brief moments of impulsiveness, loudness and agitation. Concentration, insight impaired. Patient is ambulatory/ without device. Skin check completed and intact. Blood pressure increased, new order obtained for Nifedipine, patient refusng to take medication. airworthiness inspector DR Garcia notified. Will continue to monitor.
--- NOTE | 2024-09-07 18:23 | PC.NURSE ---
Reji is refusing BP re-check and meds. Says she is fine. Denies headache. No pain, no symptoms noted. sales representative facility services DR Beatty notified by sara. Will continue to monitor.
[2024-09-07 20:00] VITALS: RESP 18
[2024-09-07] MEDS: Divalproex Sodium 250 MG TABLET.DR PO (20:21)
[2024-09-07] MEDS: OLANZapine 7.5 MG TABLET 15 MG PO (20:21)
[2024-09-08 08:00] VITALS: BP 188/102; PULSE 91; RESP 18; TEMP 36.6; O2SAT 98
[2024-09-08 08:45] VITALS: BP 188/102
[2024-09-08] MEDS: NIFEdipine ER 60 MG TAB.ER.24 PO (08:45)
--- NOTE | 2024-09-08 08:55 | PC.NURSE ---
Patient took her Nifedipine this am, BP 188/102, P 91. Refused Olanzapine 5 mg, stated, at home she was taking 3 mg. Looking forward to talk to MD. DR Garcia notified.
--- NOTE | 2024-09-08 13:01 | PC.NURSE ---
Patient not cooperative with admission risk assessment. Muffled, pressured, loud speech. Answered only some questions, refusing Influenza vaccine.
--- NOTE | 2024-09-08 14:21 | HO.PSYADMNOT ---
HPI Date of Service: 09/08/24 Chief Complaint: psychosis Sources of Information: patient interviewed, chart reviewed and crisis/core team assessment reviewed HPI Subjective Notes: Section 12B Healthcare Proxy: Yes Guardianship: Yes Narrative: The patient is a 74-year-old female with a past history of schizoaffective disorder bipolar type, high blood pressure, GERD, hyperlipidemia, obesity, very well known by this team since she was in this unit last May. According to the crisis assessment, the patient had been noncompliant with medications and she relapsed in her psychotic symptoms we disorganized behavior, noncompliance and irritability. She was rushed to the emergency room, assessed by the care team and transferring to this facility for psychiatric stabilization. On admission, the patient has refused blood work, EKG and other lab work. She stated that they have been trying to poison her and she does not want to take any medications. The patient has been seen responding to internal stimuli, grossly disorganized with poor hygiene. She refused to provide any information during the intake intake. We will try to gather more collateral information, apparently she has been under [facility] case managing and she has a court order for treatment in the community over objection. Also she has a guardian and we will try to contact his providers. Past Psychiatric History: [facility] client, kev's order and guardian. Schizoaffective D/O Dx per [facility] hosps: [facility], [facility] [place], [place] fall 2015. outpt: [facility] Medical Evaluation Reviewed: Yes [facility] Medical History Schatzki's ring Glaucoma GERD (gastroesophageal reflux disease) Hyperlipidemia Bipolar 1 disorder Surgical History History of cataract surgery History of total abdominal hysterectomy History of section Family History: unknown Social History: lives in her own apartment. 2 adult children. born in [place]. moved to [place] in 1997. Trauma History: unknown Diagnostics Vital Signs (24Hr): Vital Signs - 24 hr 09/07/24 16:15 09/07/24 20:00 09/08/24 08:00 Temperature 98.6 F 97.9 F Pulse Rate 98 91 Respiratory Rate 18 18 18 Blood Pressure 210/80 H 188/102 H Pulse Oximetry 99 98 Oxygen Delivery Method Room Air Room Air 09/08/24 08:45 Temperature Pulse Rate Respiratory Rate Blood Pressure 188/102 H Pulse Oximetry Oxygen Delivery Method BMI result Body Mass Index 31.9 Meds/Allergies Meds Home Medications ?Medication ?Instructions ?Recorded ?Confirmed ?Type docusate sodium 100 mg capsule 100 mg PO DAILY PRN constipation 09/04/24 09/04/24 History nifedipine 60 mg tablet,extended 60 mg PO DAILY 09/04/24 09/04/24 History release olanzapine 5 mg disintegrating 5 mg PO DAILY 09/04/24 09/04/24 History tablet Allergies Allergies Allergy/AdvReac Type Severity Reaction Status Date / Time blueberry [Blueberry] Allergy Severe SWELLING Verified 09/04/24 12:35 lisinopril Allergy Intermediate cough Verified 09/04/24 12:35 mushroom Allergy Intermediate SWELLING Verified 09/04/24 12:35 shellfish derived Allergy Unknown UNKNOWN Verified 09/04/24 12:35 [SHELLFISH DERIVED] thioridazine Allergy Unknown Unknown Verified 09/04/24 12:35 tomato [TOMATO] Allergy Unknown UNKNOWN Verified 09/04/24 12:35 CHOCOLATE Allergy Intermediate ITCHING Uncoded 09/04/24 12:35 From MELLARIL Allergy Intermediate SHORTNESS Uncoded 09/04/24 12:35 OF BREATH From THORAZINE Allergy Intermediate SHORTNESS Uncoded 09/04/24 12:35 OF BREATH Mental Status Exam Mental Status Exam Patient Appearance: Unkempt Patient Orientation: Person and Situation Level of Consciousness: Awake Patient Behavior: Guarded Mood Description: Withdrawn and Constricted Affect Description: Blunted Patient Cognition Impaired: Yes Ability to Follow Directions: Poor Speech Pattern: Impoverished and Difficulty Finding Words Hallucinations: Auditory Delusions: Paranoid Ideation and Ideas of Reference Thought Process: Illogical and Slowed Thinking Thought Content: positive for [place] and positive for Loose Associations Judgement: Poor Assessment & Plan Assessment & Plan (1) Schizophrenia: Status: Acute Qualifiers: Schizophrenia type: undifferentiated schizophrenia Qualified Code(s): F20.3 - Undifferentiated schizophrenia Code(s): F20.9 - Schizophrenia, unspecified Plan The patient is an elderly female with a past history of schizophrenia, with several services provided by [facility] with the court order to follow treatment, guardianship and other ancillary services who had been noncompliant with treatment. She is grossly disorganized paranoid, unable to provide any details. At this moment we will try to continue treatment. Plan 1. Gather collateral information. We will try to contact the guardian and the court order monitor for treatment over objection. 2. Restart Zyprexa as per med reconciliation form. 3. Continue with nifedipine and other medications for blood pressure. 4. Blood work and EKG. 5. Reassessment with results. 6. 5 minutes checks for safety. Patient educated on: diagnosis, medication risk/benefits, therapeutic strategies and medical condition Reason for continued inpatient stay Substantial Risk for: inability to function, rapid decompensation and med/psych decompensation Statement Statement: I have reviewed the history and physical and performed a pertinent examination on my patient. No changes have occurred unless specified. If the History and Physical was not performed prior to admission, the Hospitalist's service will be consulted for completing the admission physical. Time Spent With Patient Time: Total time managing care of this patient today __45__ minutes.
[2024-09-08 20:00] VITALS: BP 168/84; PULSE 83; RESP 16; TEMP 36.4; O2SAT 100
[2024-09-08] MEDS: Divalproex Sodium 250 MG TABLET.DR PO (20:15)
[2024-09-08] MEDS: traZODone HCL 50 MG TABLET PO (20:15)
[2024-09-08] MEDS: OLANZapine 7.5 MG TABLET 15 MG PO (20:16)
[2024-09-09] MEDS: Omeprazole 20 MG CAPSULE.DR PO (06:14)
--- NOTE | 2024-09-09 12:12 | P.PNPSI_ITS ---
Subjective Subjective Date of Service: 09/09/24 Reason For Visit: psychosis Subjective Notes: Section 12B Interim History: The nursing staff reported the patient had been uncooperative and anxious, she has refused her medications she slept 6 hours. The social media content specialist reported that the outpatient social media content specialist from [facility] reported that she was noncompliant for at least [address] order was renewed. We are going to get information about that. On interview the patient states that she is not taking any medications. Mental Status Exam Mental Status Exam Patient Appearance: Unkempt Patient Orientation: Person and Situation Level of Consciousness: Awake Patient Behavior: Guarded and Passive Mood Description: Withdrawn Affect Description: Blunted Patient Cognition Impaired: Yes Ability to Follow Directions: Fair Speech Pattern: Clear Hallucinations: None Delusions: Paranoid Ideation and Ideas of Reference Thought Process: Illogical, Distracted and Slowed Thinking Thought Content: positive for [place] and positive for Poverty of Content Judgement: Poor Diagnostics Vital Signs (24Hr): Vital Signs - 24 hr 09/08/24 20:00 Temperature 97.6 F Pulse Rate 83 Respiratory Rate 16 Blood Pressure 168/84 H Pulse Oximetry 100 Oxygen Delivery Method Room Air BMI result Body Mass Index 31.9 Medications Medications Current Medications Acetaminophen (Acetaminophen 325 Mg Tablet) 650 mg PO Q6H PRN PRN Reason: Headache/Pain Mild Scale (1-3) Al Hydroxide/Mg Hydroxide (Magnesium Hydrox/Alum Hydrox 30 Ml Oral.Susp) 30 ml PO Q6H PRN PRN Reason: Heartburn/Nausea Divalproex Sodium (Divalproex Sodium 250 Mg Tablet.Dr) 250 mg PO BEDTIME [facility] Last Admin: 09/08/24 20:15 Dose: 250 mg Docusate Sodium (Docusate Sodium 100 Mg Capsule) 100 mg PO DAILY PRN PRN Reason: constipation Hydroxyzine HCl (Hydroxyzine Hcl 25 Mg Tablet) 25 mg PO Q6H PRN PRN Reason: Anxiety Magnesium Hydroxide (Milk Of Magnesia 30 Ml Oral.Susp) 30 ml PO DAILY PRN PRN Reason: Constipation Nifedipine (Nifedipine Er 60 Mg Tab.Er.24) 60 mg PO DAILY [facility] Last Admin: 09/09/24 08:27 Dose: Not Given Olanzapine (Olanzapine 5 Mg Tablet) 5 mg PO DAILY [facility] Last Admin: 09/09/24 08:28 Dose: Not Given Olanzapine (Olanzapine 7.5 Mg Tablet) 15 mg PO BEDTIME [facility] Last Admin: 09/08/24 20:16 Dose: 15 mg Omeprazole (Omeprazole 20 Mg Capsule.) 20 mg PO DAILY@0630 [facility] Last Admin: 09/09/24 06:14 Dose: 20 mg Trazodone HCl (Trazodone Hcl 50 Mg Tablet) 50 mg PO BEDTIME MRX1 PRN PRN Reason: Insomnia Last Admin: 09/08/24 20:15 Dose: 50 mg Allergies Allergies Allergy/AdvReac Type Severity Reaction Status Date / Time blueberry [Blueberry] Allergy Severe SWELLING Verified 09/04/24 12:35 lisinopril Allergy Intermediate cough Verified 09/04/24 12:35 mushroom Allergy Intermediate SWELLING Verified 09/04/24 12:35 shellfish derived Allergy Unknown UNKNOWN Verified 09/04/24 12:35 [SHELLFISH DERIVED] thioridazine Allergy Unknown Unknown Verified 09/04/24 12:35 tomato [TOMATO] Allergy Unknown UNKNOWN Verified 09/04/24 12:35 CHOCOLATE Allergy Intermediate ITCHING Uncoded 09/04/24 12:35 From MELLARIL Allergy Intermediate SHORTNESS Uncoded 09/04/24 12:35 OF BREATH From THORAZINE Allergy Intermediate SHORTNESS Uncoded 09/04/24 12:35 OF BREATH Assessment & Plan Assessment & Plan (1) Schizophrenia: Qualifiers: Schizophrenia type: undifferentiated schizophrenia Qualified Code(s): F20.3 - Undifferentiated schizophrenia Status: Acute Code(s): F20.9 - Schizophrenia, unspecified Plan The patient is an elderly female with a past history of schizophrenia, with several services provided by [facility] with the court order to follow treatment, guardianship and other ancillary services who had been noncompliant with treatment. She is grossly disorganized paranoid, unable to provide any details. At this moment we will try to continue treatment. Plan 1. Gather collateral information. We will try to contact the guardian and the court order monitor for treatment over objection. 2. Restart Zyprexa as per med reconciliation form. 3. Continue with nifedipine and other medications for blood pressure. 4. Blood work and EKG. 5. Reassessment with results. 6. 5 minutes checks for safety. 7. We will get the legal court order for treatment over objection and reinforced it with IM. Reason for continued inpatient stay Substantial Risk for: inability to function, rapid decompensation and med/psych decompensation Time Spent With Patient Time: Total time managing care of this patient today ___20_ minutes.
[2024-09-10] MEDS: OLANZapine 5 MG TABLET PO (09:35)
--- NOTE | 2024-09-10 16:42 | P.PNPSI_ITS ---
Subjective Subjective Date of Service: 09/10/24 Reason For Visit: psychosis Subjective Notes: Section 12B Interim History: The nursing staff reported the patient had refused vital signs medications and care. She had been agitated but redirectable she was seen self dialogue in. We receive the treatment over objection community order then we are going to add PRNs Zyprexa as per court order. Today we are filing for Section 7 and 8. On interview the patient refused to engage. Mental Status Exam Mental Status Exam Patient Appearance: Unkempt Patient Orientation: Person Level of Consciousness: Awake Patient Behavior: Guarded and Passive Mood Description: Calm Affect Description: Constricted Patient Cognition Impaired: Yes Ability to Follow Directions: Good Speech Pattern: Clear Hallucinations: Auditory Delusions: Paranoid Ideation and Ideas of Reference Thought Process: Illogical, Distracted and Slowed Thinking Judgement: Poor Diagnostics Vital Signs (24Hr): BMI result Body Mass Index 31.9 Medications Medications Current Medications Acetaminophen (Acetaminophen 325 Mg Tablet) 650 mg PO Q6H PRN PRN Reason: Headache/Pain Mild Scale (1-3) Al Hydroxide/Mg Hydroxide (Magnesium Hydrox/Alum Hydrox 30 Ml Oral.Susp) 30 ml PO Q6H PRN PRN Reason: Heartburn/Nausea Divalproex Sodium (Divalproex Sodium 250 Mg Tablet.Dr) 250 mg PO BEDTIME [facility] Last Admin: 09/09/24 22:17 Dose: Not Given Docusate Sodium (Docusate Sodium 100 Mg Capsule) 100 mg PO DAILY PRN PRN Reason: constipation Hydroxyzine HCl (Hydroxyzine Hcl 25 Mg Tablet) 25 mg PO Q6H PRN PRN Reason: Anxiety Magnesium Hydroxide (Milk Of Magnesia 30 Ml Oral.Susp) 30 ml PO DAILY PRN PRN Reason: Constipation Nifedipine (Nifedipine Er 60 Mg Tab.Er.24) 60 mg PO DAILY [facility] Last Admin: 09/10/24 08:51 Dose: Not Given Olanzapine (Olanzapine 5 Mg Tablet) 5 mg PO DAILY [facility] Last Admin: 09/10/24 09:35 Dose: 5 mg Olanzapine (Olanzapine 7.5 Mg Tablet) 15 mg PO BEDTIME [facility] Last Admin: 09/09/24 22:17 Dose: Not Given Olanzapine (Olanzapine 10 Mg Vial) 5 mg IM DAILY PRN PRN Reason: Refusal PO Olanzapine (Olanzapine 10 Mg Vial) 15 mg IM BEDTIME PRN PRN Reason: Refusal PO Omeprazole (Omeprazole 20 Mg Capsule.) 20 mg PO DAILY@0630 [facility] Last Admin: 09/10/24 06:23 Dose: Not Given Trazodone HCl (Trazodone Hcl 50 Mg Tablet) 50 mg PO BEDTIME MRX1 PRN PRN Reason: Insomnia Last Admin: 09/08/24 20:15 Dose: 50 mg Allergies Allergies Allergy/AdvReac Type Severity Reaction Status Date / Time blueberry [Blueberry] Allergy Severe SWELLING Verified 09/04/24 12:35 lisinopril Allergy Intermediate cough Verified 09/04/24 12:35 mushroom Allergy Intermediate SWELLING Verified 09/04/24 12:35 shellfish derived Allergy Unknown UNKNOWN Verified 09/04/24 12:35 [SHELLFISH DERIVED] thioridazine Allergy Unknown Unknown Verified 09/04/24 12:35 tomato [TOMATO] Allergy Unknown UNKNOWN Verified 09/04/24 12:35 CHOCOLATE Allergy Intermediate ITCHING Uncoded 09/04/24 12:35 From MELLARIL Allergy Intermediate SHORTNESS Uncoded 09/04/24 12:35 OF BREATH From THORAZINE Allergy Intermediate SHORTNESS Uncoded 09/04/24 12:35 OF BREATH Assessment & Plan Assessment & Plan (1) Schizophrenia: Qualifiers: Schizophrenia type: undifferentiated schizophrenia Qualified Code(s): F20.3 - Undifferentiated schizophrenia Status: Acute Code(s): F20.9 - Schizophrenia, unspecified Plan The patient is an elderly female with a past history of schizophrenia, with several services provided by [facility] with the court order to follow treatment, guardianship and other ancillary services who had been noncompliant with treatment. She is grossly disorganized paranoid, unable to provide any details. At this moment we will try to continue treatment. Plan 1. Gather collateral information. We will try to contact the guardian and the court order monitor for treatment over objection. 2. Restart Zyprexa as per med reconciliation form. 3. Continue with nifedipine and other medications for blood pressure. 4. Blood work and EKG. 5. Reassessment with results. 6. 5 minutes checks for safety. 7. We will get the legal court order for treatment over objection and reinforced it with IM. We have just added the backup p.r.n. IM Zyprexa as per court order. Reason for continued inpatient stay Substantial Risk for: inability to function, rapid decompensation and med/psych decompensation Time Spent With Patient Time: Total time managing care of this patient today __20__ minutes.
[2024-09-10 20:00] VITALS: RESP 16
[2024-09-10] MEDS: OLANZapine 7.5 MG TABLET 15 MG PO (20:19)
[2024-09-10] MEDS: Divalproex Sodium 250 MG TABLET.DR PO (20:20)
[2024-09-11] MEDS: OLANZapine ODT 10 MG TAB.RAPDIS 5 MG TRANSLINGU (09:21)
--- NOTE | 2024-09-11 10:17 | P.PNPSI_ITS ---
Subjective Subjective Date of Service: 09/11/24 Reason For Visit: psychosis Subjective Notes: Section 7 and Section 8 Interim History: The nursing staff reported that the patient tried to cheek her medications last night. Now she is aware that if she does not take her Zyprexa she will have an IM backup. She was very angry, the nursing staff requested to change her Zyprexa p.o. to Zyprexa Zydis. On interview the patient was very angry that we are forcing her to take medications, unable to process that she has a court order for treatment over her objection. Mental Status Exam Mental Status Exam Patient Appearance: Unkempt Patient Orientation: Person and Situation Level of Consciousness: Awake and Appropriate Patient Behavior: Guarded Mood Description: Suspicious and Withdrawn Affect Description: Constricted Patient Cognition Impaired: Yes Ability to Follow Directions: Good Speech Pattern: Pressured Hallucinations: Auditory Delusions: Paranoid Ideation and Ideas of Reference Thought Process: Illogical and Distracted Thought Content: positive for [place], positive for Poverty of Content and positive for Loose Associations Judgement: Poor Diagnostics Vital Signs (24Hr): Vital Signs - 24 hr 09/10/24 20:00 Respiratory Rate 16 BMI result Body Mass Index 31.9 Medications Medications Current Medications Acetaminophen (Acetaminophen 325 Mg Tablet) 650 mg PO Q6H PRN PRN Reason: Headache/Pain Mild Scale (1-3) Al Hydroxide/Mg Hydroxide (Magnesium Hydrox/Alum Hydrox 30 Ml Oral.Susp) 30 ml PO Q6H PRN PRN Reason: Heartburn/Nausea Divalproex Sodium (Divalproex Sodium 250 Mg Tablet.Dr) 250 mg PO BEDTIME [facility] Last Admin: 09/10/24 20:20 Dose: 250 mg Docusate Sodium (Docusate Sodium 100 Mg Capsule) 100 mg PO DAILY PRN PRN Reason: constipation Hydroxyzine HCl (Hydroxyzine Hcl 25 Mg Tablet) 25 mg PO Q6H PRN PRN Reason: Anxiety Magnesium Hydroxide (Milk Of Magnesia 30 Ml Oral.Susp) 30 ml PO DAILY PRN PRN Reason: Constipation Nifedipine (Nifedipine Er 60 Mg Tab.Er.24) 60 mg PO DAILY [facility] Last Admin: 09/11/24 09:23 Dose: Not Given Olanzapine (Olanzapine 10 Mg Vial) 5 mg IM DAILY PRN PRN Reason: Refusal PO Olanzapine (Olanzapine 10 Mg Vial) 15 mg IM BEDTIME PRN PRN Reason: Refusal PO Olanzapine (Olanzapine Odt 10 Mg Tab.Rapdis) 5 mg TRANSLINGU DAILY [facility] Last Admin: 09/11/24 09:21 Dose: 5 mg Olanzapine (Olanzapine Odt 10 Mg Tab.Rapdis) 15 mg TRANSLINGU BEDTIME [facility] Omeprazole (Omeprazole 20 Mg Capsule.Dr) 20 mg PO DAILY@0630 [facility] Last Admin: 09/11/24 05:55 Dose: Not Given Trazodone HCl (Trazodone Hcl 50 Mg Tablet) 50 mg PO BEDTIME MRX1 PRN PRN Reason: Insomnia Last Admin: 09/08/24 20:15 Dose: 50 mg Allergies Allergies Allergy/AdvReac Type Severity Reaction Status Date / Time blueberry [Blueberry] Allergy Severe SWELLING Verified 09/04/24 12:35 lisinopril Allergy Intermediate cough Verified 09/04/24 12:35 mushroom Allergy Intermediate SWELLING Verified 09/04/24 12:35 shellfish derived Allergy Unknown UNKNOWN Verified 09/04/24 12:35 [SHELLFISH DERIVED] thioridazine Allergy Unknown Unknown Verified 09/04/24 12:35 tomato [TOMATO] Allergy Unknown UNKNOWN Verified 09/04/24 12:35 CHOCOLATE Allergy Intermediate ITCHING Uncoded 09/04/24 12:35 From MELLARIL Allergy Intermediate SHORTNESS Uncoded 09/04/24 12:35 OF BREATH From THORAZINE Allergy Intermediate SHORTNESS Uncoded 09/04/24 12:35 OF BREATH Assessment & Plan Assessment & Plan (1) Schizophrenia: Qualifiers: Schizophrenia type: undifferentiated schizophrenia Qualified Code(s): F20.3 - Undifferentiated schizophrenia Status: Acute Code(s): F20.9 - Schizophrenia, unspecified Plan The patient is an elderly female with a past history of schizophrenia, with several services provided by [facility] with the court order to follow treatment, guardianship and other ancillary services who had been noncompliant with treatment. She is grossly disorganized paranoid, unable to provide any details. At this moment we will try to continue treatment. Plan 1. Gather collateral information. We will try to contact the guardian and the court order monitor for treatment over objection. 2. Restart Zyprexa as per med reconciliation form. 3. Continue with nifedipine and other medications for blood pressure. 4. Blood work and EKG. 5. Reassessment with results. 6. 5 minutes checks for safety. 7. We will get the legal court order for treatment over objection and reinforced it with IM. We have just added the backup p.r.n. IM Zyprexa as per court order. We change the Zyprexa to Zyprexa Zydis to assure compliance on September 11. Reason for continued inpatient stay Substantial Risk for: inability to function, rapid decompensation and med/psych decompensation Time Spent With Patient Time: Total time managing care of this patient today __20__ minutes.
[2024-09-11 20:00] VITALS: RESP 16
[2024-09-11] MEDS: OLANZapine ODT 10 MG TAB.RAPDIS 15 MG TRANSLINGU (20:16)
[2024-09-11] MEDS: Artificial Tears 15 ML DROPS 2 DROP EYE-BOTH (21:38)
[2024-09-12 09:10] VITALS: BP 236/135; PULSE 130; RESP 16; TEMP 36.4; O2SAT 100
[2024-09-12] MEDS: NIFEdipine ER 60 MG TAB.ER.24 PO (09:13)
[2024-09-12] MEDS: OLANZapine ODT 10 MG TAB.RAPDIS 5 MG TRANSLINGU (09:21)
--- NOTE | 2024-09-12 13:07 | P.PNPSI_ITS ---
Subjective Subjective Date of Service: 09/12/24 Reason For Visit: psychosis Subjective Notes: Section 7 and Section 8 Interim History: Patient was seen and discussed in rounds today. Records and plans were reviewed. She has been taking a Zyprexa however spitting out her blood pressure medication. Were monitoring her blood pressure. She did eat some chocolate at lunch but does have hydroxyzine ordered in case we need to use that Review of Systems Review of Systems Yes all other systems are reviewed and are negative Mental Status Exam Mental Status Exam Patient Appearance: Unkempt Patient Orientation: Person and Situation Level of Consciousness: Awake and Appropriate Patient Behavior: Guarded Mood Description: Suspicious and Withdrawn Affect Description: Constricted Patient Cognition Impaired: Yes Ability to Follow Directions: Good Speech Pattern: Pressured Hallucinations: Auditory Delusions: Paranoid Ideation and Ideas of Reference Thought Process: Illogical and Distracted Thought Content: positive for [place], positive for Poverty of Content and positive for Loose Associations Judgement: Poor Diagnostics Vital Signs (24Hr): Vital Signs - 24 hr 09/11/24 20:00 09/12/24 09:10 Temperature 97.5 F Pulse Rate 130 H Respiratory Rate 16 16 Blood Pressure 236/135 H Pulse Oximetry 100 Oxygen Delivery Method Room Air BMI result Body Mass Index 31.9 Medications Medications Current Medications Acetaminophen (Acetaminophen 325 Mg Tablet) 650 mg PO Q6H PRN PRN Reason: Headache/Pain Mild Scale (1-3) Al Hydroxide/Mg Hydroxide (Magnesium Hydrox/Alum Hydrox 30 Ml Oral.Susp) 30 ml PO Q6H PRN PRN Reason: Heartburn/Nausea Artificial Tears (Artificial Tears 15 Ml Drops) 2 drop EYE-BOTH Q4H PRN PRN Reason: Dry Eyes Last Admin: 09/11/24 21:38 Dose: 2 drop Divalproex Sodium (Divalproex Sodium 250 Mg Tablet.Dr) 250 mg PO BEDTIME [facility] Last Admin: 09/11/24 20:19 Dose: Not Given Docusate Sodium (Docusate Sodium 100 Mg Capsule) 100 mg PO DAILY PRN PRN Reason: constipation Hydroxyzine HCl (Hydroxyzine Hcl 25 Mg Tablet) 25 mg PO Q6H PRN PRN Reason: Anxiety Magnesium Hydroxide (Milk Of Magnesia 30 Ml Oral.Susp) 30 ml PO DAILY PRN PRN Reason: Constipation Nifedipine (Nifedipine Er 60 Mg Tab.Er.24) 60 mg PO DAILY [facility] Last Admin: 09/12/24 09:13 Dose: 60 mg Olanzapine (Olanzapine 10 Mg Vial) 5 mg IM DAILY PRN PRN Reason: Refusal PO Olanzapine (Olanzapine 10 Mg Vial) 15 mg IM BEDTIME PRN PRN Reason: Refusal PO Olanzapine (Olanzapine Odt 10 Mg Tab.Rapdis) 5 mg TRANSLINGU DAILY [facility] Last Admin: 09/12/24 09:21 Dose: 5 mg Olanzapine (Olanzapine Odt 10 Mg Tab.Rapdis) 15 mg TRANSLINGU BEDTIME [facility] Last Admin: 09/11/24 20:16 Dose: 15 mg Omeprazole (Omeprazole 20 Mg Capsule.Dr) 20 mg PO DAILY@0630 [facility] Last Admin: 09/12/24 05:53 Dose: Not Given Trazodone HCl (Trazodone Hcl 50 Mg Tablet) 50 mg PO BEDTIME MRX1 PRN PRN Reason: Insomnia Last Admin: 09/08/24 20:15 Dose: 50 mg Allergies Allergies Allergy/AdvReac Type Severity Reaction Status Date / Time blueberry [Blueberry] Allergy Severe SWELLING Verified 09/04/24 12:35 lisinopril Allergy Intermediate cough Verified 09/04/24 12:35 mushroom Allergy Intermediate SWELLING Verified 09/04/24 12:35 shellfish derived Allergy Unknown UNKNOWN Verified 09/04/24 12:35 [SHELLFISH DERIVED] thioridazine Allergy Unknown Unknown Verified 09/04/24 12:35 tomato [TOMATO] Allergy Unknown UNKNOWN Verified 09/04/24 12:35 CHOCOLATE Allergy Intermediate ITCHING Uncoded 09/04/24 12:35 From MELLARIL Allergy Intermediate SHORTNESS Uncoded 09/04/24 12:35 OF BREATH From THORAZINE Allergy Intermediate SHORTNESS Uncoded 09/04/24 12:35 OF BREATH Assessment & Plan Assessment & Plan (1) Schizophrenia: Qualifiers: Schizophrenia type: undifferentiated schizophrenia Qualified Code(s): F20.3 - Undifferentiated schizophrenia Status: Acute Code(s): F20.9 - Schizophrenia, unspecified Plan The patient is an elderly female with a past history of schizophrenia, with several services provided by [facility] with the court order to follow treatment, guardianship and other ancillary services who had been noncompliant with treatment. She is grossly disorganized paranoid, unable to provide any details. At this moment we will try to continue treatment. Plan 1. Gather collateral information. We will try to contact the guardian and the court order monitor for treatment over objection. 2. Restart Zyprexa as per med reconciliation form. 3. Continue with nifedipine and other medications for blood pressure. 4. Blood work and EKG. 5. Reassessment with results. 6. 5 minutes checks for safety. 7. We will get the legal court order for treatment over objection and reinforced it with IM. We have just added the backup p.r.n. IM Zyprexa as per court order. We change the Zyprexa to Zyprexa Zydis to assure compliance on September 11. 09/12/2024: Continue current regimen and plans Reason for continued inpatient stay Substantial Risk for: med/psych decompensation Time Spent With Patient Time: Total time managing care of this patient today ____ minutes.
[2024-09-12 13:10] VITALS: PULSE 93; RESP 16; O2SAT 99
--- NOTE | 2024-09-12 13:22 | ECG_ITS ---
Test Reason : cp Blood Pressure : */* mmHG Vent. Rate : 86 BPM Atrial Rate : 86 BPM P-R Int : 162 ms QRS Dur : 68 ms QT Int : 370 ms P-R-T Axes : 62 16 49 degrees QTcB Int : 442 ms Normal sinus rhythm Normal ECG When compared with ECG of 25-May-2024 09:56, No significant change was found Referred By: Bobo Garcia Electronically Signed By: Luciano Joaquin
[2024-09-12 20:00] VITALS: RESP 16
[2024-09-12] MEDS: OLANZapine ODT 10 MG TAB.RAPDIS 15 MG TRANSLINGU (20:57)
[2024-09-12] MEDS: Artificial Tears 15 ML DROPS 2 DROP EYE-BOTH (21:04)
[2024-09-13 08:20] VITALS: PULSE 91; RESP 18; TEMP 36.4; O2SAT 99
[2024-09-13] MEDS: OLANZapine ODT 10 MG TAB.RAPDIS 5 MG TRANSLINGU (08:48)
--- NOTE | 2024-09-13 12:12 | P.PNPSI_ITS ---
Subjective Subjective Date of Service: 09/13/24 Reason For Visit: psychosis Subjective Notes: Section 7 and Section 8 Interim History: Patient was seen and discussed in rounds today. Records and plans were reviewed. she has only been taking the court order Zyprexa and nothing else. Continues to be confused and hard to understand. No behavioral issues or dangerous behaviors. No changes Review of Systems Review of Systems Yes Unobtainable due to mental status Mental Status Exam Mental Status Exam Patient Appearance: Unkempt Patient Orientation: Person and Situation Level of Consciousness: Awake and Appropriate Patient Behavior: Guarded Mood Description: Suspicious and Withdrawn Affect Description: Constricted Patient Cognition Impaired: Yes Ability to Follow Directions: Good Speech Pattern: Pressured Hallucinations: Auditory Delusions: Paranoid Ideation and Ideas of Reference Thought Process: Illogical and Distracted Thought Content: positive for [place], positive for Poverty of Content and positive for Loose Associations Judgement: Poor Diagnostics Vital Signs (24Hr): Vital Signs - 24 hr 09/12/24 13:10 09/12/24 20:00 09/13/24 08:20 Temperature 97.5 F Pulse Rate 93 91 Respiratory Rate 16 16 18 Pulse Oximetry 99 99 Oxygen Delivery Method Room Air Room Air BMI result Body Mass Index 31.9 Medications Medications Current Medications Acetaminophen (Acetaminophen 325 Mg Tablet) 650 mg PO Q6H PRN PRN Reason: Headache/Pain Mild Scale (1-3) Al Hydroxide/Mg Hydroxide (Magnesium Hydrox/Alum Hydrox 30 Ml Oral.Susp) 30 ml PO Q6H PRN PRN Reason: Heartburn/Nausea Artificial Tears (Artificial Tears 15 Ml Drops) 2 drop EYE-BOTH Q4H PRN PRN Reason: Dry Eyes Last Admin: 09/12/24 21:04 Dose: 2 drop Divalproex Sodium (Divalproex Sodium 250 Mg Tablet.Dr) 250 mg PO BEDTIME [facility] Last Admin: 09/12/24 21:09 Dose: Not Given Docusate Sodium (Docusate Sodium 100 Mg Capsule) 100 mg PO DAILY PRN PRN Reason: constipation Hydroxyzine HCl (Hydroxyzine Hcl 25 Mg Tablet) 25 mg PO Q6H PRN PRN Reason: Anxiety Magnesium Hydroxide (Milk Of Magnesia 30 Ml Oral.Susp) 30 ml PO DAILY PRN PRN Reason: Constipation Nifedipine (Nifedipine Er 60 Mg Tab.Er.24) 60 mg PO DAILY [facility] Last Admin: 09/13/24 08:51 Dose: Not Given Olanzapine (Olanzapine 10 Mg Vial) 5 mg IM DAILY PRN PRN Reason: Refusal PO Olanzapine (Olanzapine 10 Mg Vial) 15 mg IM BEDTIME PRN PRN Reason: Refusal PO Olanzapine (Olanzapine Odt 10 Mg Tab.Rapdis) 5 mg TRANSLINGU DAILY [facility] Last Admin: 09/13/24 08:48 Dose: 5 mg Olanzapine (Olanzapine Odt 10 Mg Tab.Rapdis) 15 mg TRANSLINGU BEDTIME [facility] Last Admin: 09/12/24 20:57 Dose: 15 mg Omeprazole (Omeprazole 20 Mg Capsule.Dr) 20 mg PO DAILY@0630 [facility] Last Admin: 09/13/24 06:40 Dose: Not Given Trazodone HCl (Trazodone Hcl 50 Mg Tablet) 50 mg PO BEDTIME MRX1 PRN PRN Reason: Insomnia Last Admin: 09/08/24 20:15 Dose: 50 mg Allergies Allergies Allergy/AdvReac Type Severity Reaction Status Date / Time blueberry [Blueberry] Allergy Severe SWELLING Verified 09/04/24 12:35 lisinopril Allergy Intermediate cough Verified 09/04/24 12:35 mushroom Allergy Intermediate SWELLING Verified 09/04/24 12:35 shellfish derived Allergy Unknown UNKNOWN Verified 09/04/24 12:35 [SHELLFISH DERIVED] thioridazine Allergy Unknown Unknown Verified 09/04/24 12:35 tomato [TOMATO] Allergy Unknown UNKNOWN Verified 09/04/24 12:35 CHOCOLATE Allergy Intermediate ITCHING Uncoded 09/04/24 12:35 From MELLARIL Allergy Intermediate SHORTNESS Uncoded 09/04/24 12:35 OF BREATH From THORAZINE Allergy Intermediate SHORTNESS Uncoded 09/04/24 12:35 OF BREATH Assessment & Plan Assessment & Plan (1) Schizophrenia: Qualifiers: Schizophrenia type: undifferentiated schizophrenia Qualified Code(s): F20.3 - Undifferentiated schizophrenia Status: Acute Code(s): F20.9 - Schizophrenia, unspecified Plan The patient is an elderly female with a past history of schizophrenia, with several services provided by [facility] with the court order to follow treatment, guardianship and other ancillary services who had been noncompliant with treatment. She is grossly disorganized paranoid, unable to provide any details. At this moment we will try to continue treatment. Plan 1. Gather collateral information. We will try to contact the guardian and the court order monitor for treatment over objection. 2. Restart Zyprexa as per med reconciliation form. 3. Continue with nifedipine and other medications for blood pressure. 4. Blood work and EKG. 5. Reassessment with results. 6. 5 minutes checks for safety. 7. We will get the legal court order for treatment over objection and reinforced it with IM. We have just added the backup p.r.n. IM Zyprexa as per court ord er. We change the Zyprexa to Zyprexa Zydis to assure compliance on September 11. 09/12/2024: Continue current regimen and plans 09/13/2024: Continue current regimen and plans Reason for continued inpatient stay Substantial Risk for: inability to function Time Spent With Patient Time: Total time managing care of this patient today ____ minutes.
[2024-09-13] MEDS: Artificial Tears 15 ML DROPS 2 DROP EYE-BOTH (17:57)
[2024-09-13 20:00] VITALS: RESP 18
[2024-09-13] MEDS: OLANZapine ODT 10 MG TAB.RAPDIS 15 MG TRANSLINGU (20:13)
[2024-09-14] MEDS: OLANZapine ODT 10 MG TAB.RAPDIS 5 MG TRANSLINGU (08:38)
[2024-09-14] MEDS: Artificial Tears 15 ML DROPS 2 DROP EYE-BOTH ×2 (08:41→20:57)
--- NOTE | 2024-09-14 13:27 | HO.PSYCHPN ---
Subjective Subjective Date of Service: 09/14/24 Reason For Visit: psychosis Subjective Notes: Conditional Voluntary Interim History: The nursing staff reported the patient slept 7 hours, he had been compliant with medications since she scored order. On interview the patient reported that she does not like to take her medications she is very difficult to understand because she is very slurred speech. No evidence of EPS on physical exam. Mental Status Exam Mental Status Exam Patient Appearance: Unkempt Patient Orientation: Person Level of Consciousness: Awake Patient Behavior: Guarded and Passive Mood Description: Withdrawn Affect Description: Blunted Patient Cognition Impaired: Yes Ability to Follow Directions: Good Speech Pattern: Impoverished and Garbled Hallucinations: None Delusions: Ideas of Reference Thought Process: Distracted and Slowed Thinking Thought Content: positive for [place], positive for Poverty of Content and positive for Thought Blocking Judgement: Poor Diagnostics Vital Signs (24Hr): Vital Signs - 24 hr 09/13/24 20:00 Respiratory Rate 18 BMI result Body Mass Index 31.9 Medications Medications Current Medications Acetaminophen (Acetaminophen 325 Mg Tablet) 650 mg PO Q6H PRN PRN Reason: Headache/Pain Mild Scale (1-3) Al Hydroxide/Mg Hydroxide (Magnesium Hydrox/Alum Hydrox 30 Ml Oral.Susp) 30 ml PO Q6H PRN PRN Reason: Heartburn/Nausea Artificial Tears (Artificial Tears 15 Ml Drops) 2 drop EYE-BOTH Q4H PRN PRN Reason: Dry Eyes Last Admin: 09/14/24 08:41 Dose: 2 drop Divalproex Sodium (Divalproex Sodium 250 Mg Tablet.Dr) 250 mg PO BEDTIME [facility] Last Admin: 09/13/24 20:15 Dose: Not Given Docusate Sodium (Docusate Sodium 100 Mg Capsule) 100 mg PO DAILY PRN PRN Reason: constipation Hydroxyzine HCl (Hydroxyzine Hcl 25 Mg Tablet) 25 mg PO Q6H PRN PRN Reason: Anxiety Magnesium Hydroxide (Milk Of Magnesia 30 Ml Oral.Susp) 30 ml PO DAILY PRN PRN Reason: Constipation Nifedipine (Nifedipine Er 60 Mg Tab.Er.24) 60 mg PO DAILY [facility] Last Admin: 09/14/24 10:05 Dose: Not Given Olanzapine (Olanzapine 10 Mg Vial) 5 mg IM DAILY PRN PRN Reason: Refusal PO Olanzapine (Olanzapine 10 Mg Vial) 15 mg IM BEDTIME PRN PRN Reason: Refusal PO Olanzapine (Olanzapine Odt 10 Mg Tab.Rapdis) 5 mg TRANSLINGU DAILY [facility] Last Admin: 09/14/24 08:38 Dose: 5 mg Olanzapine (Olanzapine Odt 10 Mg Tab.Rapdis) 15 mg TRANSLINGU BEDTIME [facility] Last Admin: 09/13/24 20:13 Dose: 15 mg Omeprazole (Omeprazole 20 Mg Capsule.Dr) 20 mg PO DAILY@0630 [facility] Last Admin: 09/14/24 05:46 Dose: Not Given Trazodone HCl (Trazodone Hcl 50 Mg Tablet) 50 mg PO BEDTIME MRX1 PRN PRN Reason: Insomnia Last Admin: 09/08/24 20:15 Dose: 50 mg Allergies Allergies Allergy/AdvReac Type Severity Reaction Status Date / Time blueberry [Blueberry] Allergy Severe SWELLING Verified 09/04/24 12:35 lisinopril Allergy Intermediate cough Verified 09/04/24 12:35 mushroom Allergy Intermediate SWELLING Verified 09/04/24 12:35 shellfish derived Allergy Unknown UNKNOWN Verified 09/04/24 12:35 [SHELLFISH DERIVED] thioridazine Allergy Unknown Unknown Verified 09/04/24 12:35 tomato [TOMATO] Allergy Unknown UNKNOWN Verified 09/04/24 12:35 CHOCOLATE Allergy Intermediate ITCHING Uncoded 09/04/24 12:35 From MELLARIL Allergy Intermediate SHORTNESS Uncoded 09/04/24 12:35 OF BREATH From THORAZINE Allergy Intermediate SHORTNESS Uncoded 09/04/24 12:35 OF BREATH Assessment & Plan Assessment & Plan (1) Schizophrenia: Qualifiers: Schizophrenia type: undifferentiated schizophrenia Qualified Code(s): F20.3 - Undifferentiated schizophrenia Status: Acute Code(s): F20.9 - Schizophrenia, unspecified Plan The patient is an elderly female with a past history of schizophrenia, with several services provided by [facility] with the court order to follow treatment, guardianship and other ancillary services who had been noncompliant with treatment. She is grossly disorganized paranoid, unable to provide any details. At this moment we will try to continue treatment. Plan 1. Gather collateral information. We will try to contact the guardian and the court order monitor for treatment over objection. 2. Restart Zyprexa as per med reconciliation form. 3. Continue with nifedipine and other medications for blood pressure. 4. Blood work and EKG. 5. Reassessment with results. 6. 5 minutes checks for safety. 7. We will get the legal court order for treatment over objection and reinforced it with IM. We have just added the backup p.r.n. IM Zyprexa as per court order. We change the Zyprexa to Zyprexa Zydis to assure compliance on September 11. Reason for continued inpatient stay Substantial Risk for: inability to function, rapid decompensation and med/psych decompensation Time Spent With Patient Time: Total time managing care of this patient today __20__ minutes.
[2024-09-14 20:00] VITALS: RESP 17
[2024-09-14] MEDS: OLANZapine ODT 10 MG TAB.RAPDIS 15 MG TRANSLINGU (20:20)
[2024-09-15 08:00] VITALS: RESP 17
[2024-09-15] MEDS: OLANZapine ODT 10 MG TAB.RAPDIS 5 MG TRANSLINGU (09:02)
--- NOTE | 2024-09-15 09:30 | PC.NURSE ---
Patient refused vital signs and Nifedipine even after given education about BP meds and VS monitoring.
--- NOTE | 2024-09-15 09:37 | PC.NURSE ---
Dr Garcia notified of the refusal. Pt took her Olanzapine as ordered.
--- NOTE | 2024-09-15 11:03 | HO.PSYCHPN ---
Subjective Subjective Date of Service: 09/15/24 Reason For Visit: psychosis Subjective Notes: Section 7 and Section 8 Interim History: The nursing staff reported the patient had been flat, with good appetite only her Zyprexa. She was seen self dialogue in difficult to understand. She slept only 4 hours. On interview she was very difficult to understand due to her intonation and disorganized thought process. Mental Status Exam Mental Status Exam Patient Appearance: Appropriate Patient Orientation: Person and Situation Level of Consciousness: Awake Patient Behavior: Guarded and Passive Mood Description: Withdrawn Affect Description: Constricted Patient Cognition Impaired: Yes Ability to Follow Directions: Good Speech Pattern: Clear Hallucinations: None Delusions: Paranoid Ideation and Ideas of Reference Thought Process: Illogical and Distracted Thought Content: positive for [place] and positive for Poverty of Content Judgement: Fair Diagnostics Vital Signs (24Hr): Vital Signs - 24 hr 09/14/24 20:00 09/15/24 08:00 Respiratory Rate 17 17 BMI result Body Mass Index 31.9 Medications Medications Current Medications Acetaminophen (Acetaminophen 325 Mg Tablet) 650 mg PO Q6H PRN PRN Reason: Headache/Pain Mild Scale (1-3) Al Hydroxide/Mg Hydroxide (Magnesium Hydrox/Alum Hydrox 30 Ml Oral.Susp) 30 ml PO Q6H PRN PRN Reason: Heartburn/Nausea Artificial Tears (Artificial Tears 15 Ml Drops) 2 drop EYE-BOTH Q4H PRN PRN Reason: Dry Eyes Last Admin: 09/14/24 20:57 Dose: 2 drop Divalproex Sodium (Divalproex Sodium 250 Mg Tablet.Dr) 250 mg PO BEDTIME [facility] Last Admin: 09/14/24 20:22 Dose: Not Given Docusate Sodium (Docusate Sodium 100 Mg Capsule) 100 mg PO DAILY PRN PRN Reason: constipation Hydroxyzine HCl (Hydroxyzine Hcl 25 Mg Tablet) 25 mg PO Q6H PRN PRN Reason: Anxiety Magnesium Hydroxide (Milk Of Magnesia 30 Ml Oral.Susp) 30 ml PO DAILY PRN PRN Reason: Constipation Nifedipine (Nifedipine Er 60 Mg Tab.Er.24) 60 mg PO DAILY [facility] Last Admin: 09/15/24 09:28 Dose: Not Given Olanzapine (Olanzapine 10 Mg Vial) 5 mg IM DAILY PRN PRN Reason: Refusal PO Olanzapine (Olanzapine 10 Mg Vial) 15 mg IM BEDTIME PRN PRN Reason: Refusal PO Olanzapine (Olanzapine Odt 10 Mg Tab.Rapdis) 5 mg TRANSLINGU DAILY [facility] Last Admin: 09/15/24 09:02 Dose: 5 mg Olanzapine (Olanzapine Odt 10 Mg Tab.Rapdis) 15 mg TRANSLINGU BEDTIME [facility] Last Admin: 09/14/24 20:20 Dose: 15 mg Omeprazole (Omeprazole 20 Mg Capsule.Dr) 20 mg PO DAILY@0630 [facility] Last Admin: 09/15/24 05:48 Dose: Not Given Trazodone HCl (Trazodone Hcl 50 Mg Tablet) 50 mg PO BEDTIME MRX1 PRN PRN Reason: Insomnia Last Admin: 09/08/24 20:15 Dose: 50 mg Allergies Allergies Allergy/AdvReac Type Severity Reaction Status Date / Time blueberry [Blueberry] Allergy Severe SWELLING Verified 09/04/24 12:35 lisinopril Allergy Intermediate cough Verified 09/04/24 12:35 mushroom Allergy Intermediate SWELLING Verified 09/04/24 12:35 shellfish derived Allergy Unknown UNKNOWN Verified 09/04/24 12:35 [SHELLFISH DERIVED] thioridazine Allergy Unknown Unknown Verified 09/04/24 12:35 tomato [TOMATO] Allergy Unknown UNKNOWN Verified 09/04/24 12:35 CHOCOLATE Allergy Intermediate ITCHING Uncoded 09/04/24 12:35 From MELLARIL Allergy Intermediate SHORTNESS Uncoded 09/04/24 12:35 OF BREATH From THORAZINE Allergy Intermediate SHORTNESS Uncoded 09/04/24 12:35 OF BREATH Assessment & Plan Assessment & Plan (1) Schizophrenia: Qualifiers: Schizophrenia type: undifferentiated schizophrenia Qualified Code(s): F20.3 - Undifferentiated schizophrenia Status: Acute Code(s): F20.9 - Schizophrenia, unspecified Plan The patient is an elderly female with a past history of schizophrenia, with several services provided by [facility] with the court order to follow treatment, guardianship and other ancillary services who had been noncompliant with treatment. She is grossly disorganized paranoid, unable to provide any details. At this moment we will try to continue treatment. Plan 1. Gather collateral information. We will try to contact the guardian and the court order monitor for treatment over objection. 2. Restart Zyprexa as per med reconciliation form. 3. Continue with nifedipine and other medications for blood pressure. 4. Blood work and EKG. 5. Reassessment with results. 6. 5 minutes checks for safety. 7. We will get the legal court order for treatment over objection and reinforced it with IM. We have just added the backup p.r.n. IM Zyprexa as per court order. We change the Zyprexa to Zyprexa Zydis to assure compliance on September 11. Reason for continued inpatient stay Substantial Risk for: inability to function, rapid decompensation and med/psych decompensation Time Spent With Patient Time: Total time managing care of this patient today _20__ minutes.
[2024-09-15] MEDS: Artificial Tears 15 ML DROPS 2 DROP EYE-BOTH (15:37)
[2024-09-15] MEDS: Divalproex Sodium 250 MG TABLET.DR PO (19:52)
[2024-09-15 19:53] VITALS: BP 190/86
[2024-09-15] MEDS: NIFEdipine ER 60 MG TAB.ER.24 PO ×2 (19:53→20:30)
[2024-09-15] MEDS: OLANZapine ODT 10 MG TAB.RAPDIS 15 MG TRANSLINGU (19:53)
[2024-09-15 20:00] VITALS: BP 190/86; PULSE 100; RESP 16; TEMP 36.6; O2SAT 97
[2024-09-15 20:30] VITALS: BP 190/86
[2024-09-16] MEDS: OLANZapine 10 MG VIAL 5 MG IM (09:19)
--- NOTE | 2024-09-16 14:32 | HO.PSYCHPN ---
Subjective Subjective Date of Service: 09/16/24 Reason For Visit: psychosis Subjective Notes: Conditional Voluntary Interim History: The nursing staff reported the patient took only her Zyprexa, she refused vital signs and the other medications. On interview the patient reported that she wants to go back home. Still internally preoccupied and psychotic. Initially she refused her medications in the morning but whenever remained her that we need to use her IM backup she took it p.o. only Zyprexa. Mental Status Exam Mental Status Exam Patient Appearance: Appropriate Patient Orientation: Person and Situation Level of Consciousness: Awake Patient Behavior: Guarded and Passive Mood Description: Withdrawn Affect Description: Constricted Patient Cognition Impaired: Yes Ability to Follow Directions: Good Speech Pattern: Clear Hallucinations: Auditory Delusions: Paranoid Ideation and Ideas of Reference Thought Process: Distracted and Slowed Thinking Thought Content: positive for [place] and positive for Poverty of Content Judgement: Poor Diagnostics Vital Signs (24Hr): Vital Signs - 24 hr 09/15/24 19:53 09/15/24 20:00 09/15/24 20:30 Temperature 97.8 F Pulse Rate 100 Respiratory Rate 16 Blood Pressure 190/86 H 190/86 H 190/86 H Pulse Oximetry 97 Oxygen Delivery Method Room Air BMI result Body Mass Index 31.9 Medications Medications Current Medications Acetaminophen (Acetaminophen 325 Mg Tablet) 650 mg PO Q6H PRN PRN Reason: Headache/Pain Mild Scale (1-3) Al Hydroxide/Mg Hydroxide (Magnesium Hydrox/Alum Hydrox 30 Ml Oral.Susp) 30 ml PO Q6H PRN PRN Reason: Heartburn/Nausea Artificial Tears (Artificial Tears 15 Ml Drops) 2 drop EYE-BOTH Q4H PRN PRN Reason: Dry Eyes Last Admin: 09/15/24 15:37 Dose: 2 drop Divalproex Sodium (Divalproex Sodium 250 Mg Tablet.Dr) 250 mg PO BEDTIME [facility] Last Admin: 09/15/24 19:52 Dose: 250 mg Docusate Sodium (Docusate Sodium 100 Mg Capsule) 100 mg PO DAILY PRN PRN Reason: constipation Hydroxyzine HCl (Hydroxyzine Hcl 25 Mg Tablet) 25 mg PO Q6H PRN PRN Reason: Anxiety Magnesium Hydroxide (Milk Of Magnesia 30 Ml Oral.Susp) 30 ml PO DAILY PRN PRN Reason: Constipation Nifedipine (Nifedipine Er 60 Mg Tab.Er.24) 60 mg PO DAILY [facility] Last Admin: 09/15/24 20:30 Dose: 60 mg Olanzapine (Olanzapine 10 Mg Vial) 5 mg IM DAILY PRN PRN Reason: Refusal PO Last Admin: 09/16/24 09:19 Dose: 5 mg Olanzapine (Olanzapine 10 Mg Vial) 15 mg IM BEDTIME PRN PRN Reason: Refusal PO Olanzapine (Olanzapine Odt 10 Mg Tab.Rapdis) 5 mg TRANSLINGU DAILY [facility] Last Admin: 09/16/24 08:48 Dose: Not Given Olanzapine (Olanzapine Odt 10 Mg Tab.Rapdis) 15 mg TRANSLINGU BEDTIME [facility] Last Admin: 09/15/24 19:53 Dose: 15 mg Omeprazole (Omeprazole 20 Mg Capsule.Dr) 20 mg PO DAILY@0630 [facility] Last Admin: 09/16/24 06:01 Dose: Not Given Trazodone HCl (Trazodone Hcl 50 Mg Tablet) 50 mg PO BEDTIME MRX1 PRN PRN Reason: Insomnia Last Admin: 09/08/24 20:15 Dose: 50 mg Allergies Allergies Allergy/AdvReac Type Severity Reaction Status Date / Time blueberry [Blueberry] Allergy Severe SWELLING Verified 09/04/24 12:35 lisinopril Allergy Intermediate cough Verified 09/04/24 12:35 mushroom Allergy Intermediate SWELLING Verified 09/04/24 12:35 shellfish derived Allergy Unknown UNKNOWN Verified 09/04/24 12:35 [SHELLFISH DERIVED] thioridazine Allergy Unknown Unknown Verified 09/04/24 12:35 tomato [TOMATO] Allergy Unknown UNKNOWN Verified 09/04/24 12:35 CHOCOLATE Allergy Intermediate ITCHING Uncoded 09/04/24 12:35 From MELLARIL Allergy Intermediate SHORTNESS Uncoded 09/04/24 12:35 OF BREATH From THORAZINE Allergy Intermediate SHORTNESS Uncoded 09/04/24 12:35 OF BREATH Assessment & Plan Assessment & Plan (1) Schizophrenia: Qualifiers: Schizophrenia type: undifferentiated schizophrenia Qualified Code(s): F20.3 - Undifferentiated schizophrenia Status: Acute Code(s): F20.9 - Schizophrenia, unspecified Plan The patient is an elderly female with a past history of schizophrenia, with several services provided by [facility] with the court order to follow treatment, guardianship and other ancillary services who had been noncompliant with treatment. She is grossly disorganized paranoid, unable to provide any details. At this moment we will try to continue treatment. Plan 1. Gather collateral information. We will try to contact the guardian and the court order monitor for treatment over objection. 2. Restart Zyprexa as per med reconciliation form. 3. Continue with nifedipine and other medications for blood pressure. 4. Blood work and EKG. 5. Reassessment with results. 6. 5 minutes checks for safety. 7. We will get the legal court order for treatment over objection and reinforced it with IM. We have just added the backup p.r.n. IM Zyprexa as per court order. We change the Zyprexa to Zyprexa Zydis to assure compliance on September 11. Reason for continued inpatient stay Substantial Risk for: inability to function, rapid decompensation and med/psych decompensation Time Spent With Patient Time: Total time managing care of this patient today _20___ minutes.
[2024-09-16] MEDS: Artificial Tears 15 ML DROPS 2 DROP EYE-BOTH ×2 (18:00→22:03)
[2024-09-16 20:00] VITALS: BP 158/72; PULSE 90; RESP 16; TEMP 37; O2SAT 97
[2024-09-16] MEDS: Divalproex Sodium 250 MG TABLET.DR PO (20:01)
[2024-09-16] MEDS: OLANZapine ODT 10 MG TAB.RAPDIS 15 MG TRANSLINGU (20:01)
[2024-09-17] MEDS: Omeprazole 20 MG CAPSULE.DR PO (06:37)
[2024-09-17 07:55] VITALS: BP 160/72; PULSE 89; RESP 18; TEMP 36.8; O2SAT 97
[2024-09-17] MEDS: NIFEdipine ER 60 MG TAB.ER.24 PO (08:57)
[2024-09-17] MEDS: OLANZapine ODT 10 MG TAB.RAPDIS 5 MG TRANSLINGU (08:57)
[2024-09-17 14:52] VITALS: BMI 34.2
--- NOTE | 2024-09-17 16:20 | HO.PSYCHPN ---
Subjective Subjective Date of Service: 09/17/24 Reason For Visit: psychosis Subjective Notes: Section 7 and Section 8 Interim History: The nursing staff reported no changes in mental status, she took Zyprexa IM since he refused the p.o.. On interview the patient denies new symptoms she is internally preoccupied still psychotic. Mental Status Exam Mental Status Exam Patient Appearance: Unkempt Patient Orientation: Person and Situation Level of Consciousness: Awake Patient Behavior: Guarded and Passive Mood Description: Withdrawn Affect Description: Constricted Patient Cognition Impaired: Yes Ability to Follow Directions: Good Speech Pattern: Clear Hallucinations: Auditory Delusions: Paranoid Ideation and Ideas of Reference Thought Process: Distracted and Slowed Thinking Thought Content: positive for [place] and positive for Poverty of Content Judgement: Fair Diagnostics Vital Signs (24Hr): Vital Signs - 24 hr 09/16/24 20:00 09/17/24 07:55 Temperature 98.6 F 98.2 F Pulse Rate 90 89 Respiratory Rate 16 18 Blood Pressure 158/72 H 160/72 H Pulse Oximetry 97 97 Oxygen Delivery Method Room Air Room Air BMI result Body Mass Index 34.2 Medications Medications Current Medications Acetaminophen (Acetaminophen 325 Mg Tablet) 650 mg PO Q6H PRN PRN Reason: Headache/Pain Mild Scale (1-3) Al Hydroxide/Mg Hydroxide (Magnesium Hydrox/Alum Hydrox 30 Ml Oral.Susp) 30 ml PO Q6H PRN PRN Reason: Heartburn/Nausea Artificial Tears (Artificial Tears 15 Ml Drops) 2 drop EYE-BOTH Q4H PRN PRN Reason: Dry Eyes Last Admin: 09/16/24 22:03 Dose: 2 drop Divalproex Sodium (Divalproex Sodium 250 Mg Tablet.Dr) 250 mg PO BEDTIME [facility] Last Admin: 09/16/24 20:01 Dose: 250 mg Docusate Sodium (Docusate Sodium 100 Mg Capsule) 100 mg PO DAILY PRN PRN Reason: constipation Hydroxyzine HCl (Hydroxyzine Hcl 25 Mg Tablet) 25 mg PO Q6H PRN PRN Reason: Anxiety Magnesium Hydroxide (Milk Of Magnesia 30 Ml Oral.Susp) 30 ml PO DAILY PRN PRN Reason: Constipation Nifedipine (Nifedipine Er 60 Mg Tab.Er.24) 60 mg PO DAILY [facility] Last Admin: 09/17/24 08:57 Dose: 60 mg Olanzapine (Olanzapine 10 Mg Vial) 5 mg IM DAILY PRN PRN Reason: Refusal PO Last Admin: 09/16/24 09:19 Dose: 5 mg Olanzapine (Olanzapine 10 Mg Vial) 15 mg IM BEDTIME PRN PRN Reason: Refusal PO Olanzapine (Olanzapine Odt 10 Mg Tab.Rapdis) 5 mg TRANSLINGU DAILY [facility] Last Admin: 09/17/24 08:57 Dose: 5 mg Olanzapine (Olanzapine Odt 10 Mg Tab.Rapdis) 15 mg TRANSLINGU BEDTIME [facility] Last Admin: 09/16/24 20:01 Dose: 15 mg Omeprazole (Omeprazole 20 Mg Capsule.Dr) 20 mg PO DAILY@0630 [facility] Last Admin: 09/17/24 06:37 Dose: 20 mg Trazodone HCl (Trazodone Hcl 50 Mg Tablet) 50 mg PO BEDTIME MRX1 PRN PRN Reason: Insomnia Last Admin: 09/08/24 20:15 Dose: 50 mg Allergies Allergies Allergy/AdvReac Type Severity Reaction Status Date / Time blueberry [Blueberry] Allergy Severe SWELLING Verified 09/04/24 12:35 lisinopril Allergy Intermediate cough Verified 09/04/24 12:35 mushroom Allergy Intermediate SWELLING Verified 09/04/24 12:35 shellfish derived Allergy Unknown UNKNOWN Verified 09/04/24 12:35 [SHELLFISH DERIVED] thioridazine Allergy Unknown Unknown Verified 09/04/24 12:35 tomato [TOMATO] Allergy Unknown UNKNOWN Verified 09/04/24 12:35 CHOCOLATE Allergy Intermediate ITCHING Uncoded 09/04/24 12:35 From MELLARIL Allergy Intermediate SHORTNESS Uncoded 09/04/24 12:35 OF BREATH From THORAZINE Allergy Intermediate SHORTNESS Uncoded 09/04/24 12:35 OF BREATH Assessment & Plan Assessment & Plan (1) Schizophrenia: Qualifiers: Schizophrenia type: undifferentiated schizophrenia Qualified Code(s): F20.3 - Undifferentiated schizophrenia Status: Acute Code(s): F20.9 - Schizophrenia, unspecified Plan The patient is an elderly female with a past history of schizophrenia, with several services provided by [facility] with the court order to follow treatment, guardianship and other ancillary services who had been noncompliant with treatment. She is grossly disorganized paranoid, unable to provide any details. At this moment we will try to continue treatment. Plan 1. Gather collateral information. We will try to contact the guardian and the court order monitor for treatment over objection. 2. Restart Zyprexa as per med reconciliation form. 3. Continue with nifedipine and other medications for blood pressure. 4. Blood work and EKG. 5. Reassessment with results. 6. 5 minutes checks for safety. 7. We will get the legal court order for treatment over objection and reinforced it with IM. We have just added the backup p.r.n. IM Zyprexa as per court order. We change the Zyprexa to Zyprexa Zydis to assure compliance on September 11. Reason for continued inpatient stay Substantial Risk for: inability to function, rapid decompensation and med/psych decompensation Time Spent With Patient Time: Total time managing care of this patient today __20__ minutes.
[2024-09-17] MEDS: Divalproex Sodium 250 MG TABLET.DR PO (19:57)
[2024-09-17] MEDS: OLANZapine ODT 10 MG TAB.RAPDIS 15 MG TRANSLINGU (19:57)
[2024-09-17 20:00] VITALS: BP 148/75; PULSE 100; RESP 16; TEMP 36.6; O2SAT 98
[2024-09-17] MEDS: Artificial Tears 15 ML DROPS 2 DROP EYE-BOTH (20:22)
[2024-09-18] MEDS: Omeprazole 20 MG CAPSULE.DR PO (06:14)
[2024-09-18] MEDS: OLANZapine ODT 10 MG TAB.RAPDIS 5 MG TRANSLINGU (08:22)
--- NOTE | 2024-09-18 09:57 | P.PNPSI_ITS ---
Subjective Subjective Date of Service: 09/18/24 Reason For Visit: psychosis Subjective Notes: Section 7 Interim History: Pt visible on the unit. She reports she wants to go home and reports it is her worker keeping her here. She denies SI/HI. She is taking medications with back up IM per [facility]. No behavioral concerns. Medication Compliance: Yes Review of Systems Review of Systems Yes all other systems are reviewed and are negative, Unobtainable due to mental status and Other (patient refused to participate in ROS) Psychiatric: Reports paranoia Mental Status Exam Mental Status Exam Narrative: Pt with improved hygiene, casually groomed, in NAD Patient Orientation: Person and Place Level of Consciousness: Awake Patient Behavior: Guarded and Passive Mood Description: Withdrawn Affect Description: Constricted Patient Cognition Impaired: Yes Ability to Follow Directions: Good Speech Pattern: Clear Diagnostics Vital Signs (24Hr): Vital Signs - 24 hr 09/17/24 20:00 Temperature 98 F Pulse Rate 100 Respiratory Rate 16 Blood Pressure 148/75 H Pulse Oximetry 98 Oxygen Delivery Method Room Air BMI result Body Mass Index 34.2 Medications Medications Current Medications Acetaminophen (Acetaminophen 325 Mg Tablet) 650 mg PO Q6H PRN PRN Reason: Headache/Pain Mild Scale (1-3) Al Hydroxide/Mg Hydroxide (Magnesium Hydrox/Alum Hydrox 30 Ml Oral.Susp) 30 ml PO Q6H PRN PRN Reason: Heartburn/Nausea Artificial Tears (Artificial Tears 15 Ml Drops) 2 drop EYE-BOTH Q4H PRN PRN Reason: Dry Eyes Last Admin: 09/17/24 20:22 Dose: 2 drop Divalproex Sodium (Divalproex Sodium 250 Mg Tablet.) 250 mg PO BEDTIME [facility] Last Admin: 09/17/24 19:57 Dose: 250 mg Docusate Sodium (Docusate Sodium 100 Mg Capsule) 100 mg PO DAILY PRN PRN Reason: constipation Hydroxyzine HCl (Hydroxyzine Hcl 25 Mg Tablet) 25 mg PO Q6H PRN PRN Reason: Anxiety Magnesium Hydroxide (Milk Of Magnesia 30 Ml Oral.Susp) 30 ml PO DAILY PRN PRN Reason: Constipation Nifedipine (Nifedipine Er 60 Mg Tab.Er.24) 60 mg PO DAILY [facility] Last Admin: 09/18/24 08:22 Dose: Not Given Olanzapine (Olanzapine 10 Mg Vial) 5 mg IM DAILY PRN PRN Reason: Refusal PO Last Admin: 09/16/24 09:19 Dose: 5 mg Olanzapine (Olanzapine 10 Mg Vial) 15 mg IM BEDTIME PRN PRN Reason: Refusal PO Olanzapine (Olanzapine Odt 10 Mg Tab.Rapdis) 5 mg TRANSLINGU DAILY [facility] Last Admin: 09/18/24 08:22 Dose: 5 mg Olanzapine (Olanzapine Odt 10 Mg Tab.Rapdis) 15 mg TRANSLINGU BEDTIME [facility] Last Admin: 09/17/24 19:57 Dose: 15 mg Omeprazole (Omeprazole 20 Mg Capsule.Dr) 20 mg PO DAILY@0630 [facility] Last Admin: 09/18/24 06:14 Dose: 20 mg Trazodone HCl (Trazodone Hcl 50 Mg Tablet) 50 mg PO BEDTIME MRX1 PRN PRN Reason: Insomnia Last Admin: 09/08/24 20:15 Dose: 50 mg Allergies Allergies Allergy/AdvReac Type Severity Reaction Status Date / Time blueberry [Blueberry] Allergy Severe SWELLING Verified 09/04/24 12:35 lisinopril Allergy Intermediate cough Verified 09/04/24 12:35 mushroom Allergy Intermediate SWELLING Verified 09/04/24 12:35 shellfish derived Allergy Unknown UNKNOWN Verified 09/04/24 12:35 [SHELLFISH DERIVED] thioridazine Allergy Unknown Unknown Verified 09/04/24 12:35 tomato [TOMATO] Allergy Unknown UNKNOWN Verified 09/04/24 12:35 CHOCOLATE Allergy Intermediate ITCHING Uncoded 09/04/24 12:35 From MELLARIL Allergy Intermediate SHORTNESS Uncoded 09/04/24 12:35 OF BREATH From THORAZINE Allergy Intermediate SHORTNESS Uncoded 09/04/24 12:35 OF BREATH Assessment & Plan Assessment & Plan (1) Schizophrenia: Qualifiers: Schizophrenia type: undifferentiated schizophrenia Qualified Code(s): F20.3 - Undifferentiated schizophrenia Status: Acute Code(s): F20.9 - Schizophrenia, unspecified Plan The patient is an elderly female with a past history of schi zophrenia, with several services provided by [facility] with the court order to follow treatment, guardianship and other ancillary services who had been noncompliant with treatment. She is grossly disorganized paranoid, unable to provide any details. At this moment we will try to continue treatment. Plan 1. Gather collateral information. We will try to contact the guardian and the court order monitor for treatment over objection. 2. Restart Zyprexa as per med reconciliation form. 3. Continue with nifedipine and other medications for blood pressure. 4. Blood work and EKG. 5. Reassessment with results. 6. 5 minutes checks for safety. 7. We will get the legal court order for treatment over objection and reinforced it with IM. We have just added the backup p.r.n. IM Zyprexa as per court order. We change the Zyprexa to Zyprexa Zydis to assure compliance on September 11. Reason for continued inpatient stay Substantial Risk for: inability to function Time Spent With Patient Time: Total time managing care of this patient today ____ minutes.
[2024-09-18] MEDS: Artificial Tears 15 ML DROPS 2 DROP EYE-BOTH (12:51)
[2024-09-18 20:00] VITALS: RESP 18
[2024-09-18] MEDS: OLANZapine ODT 10 MG TAB.RAPDIS 15 MG TRANSLINGU (20:28)
[2024-09-18] MEDS: Divalproex Sodium 250 MG TABLET.DR PO (20:28)
[2024-09-19 09:41] VITALS: BP 148/104; PULSE 85; RESP 16; TEMP 36.3; O2SAT 98
[2024-09-19] MEDS: OLANZapine ODT 10 MG TAB.RAPDIS 5 MG TRANSLINGU (09:46)
[2024-09-19] MEDS: NIFEdipine ER 60 MG TAB.ER.24 PO (09:46)
[2024-09-19] MEDS: Omeprazole 20 MG CAPSULE.DR PO (09:46)
--- NOTE | 2024-09-19 10:33 | P.PNPSI_ITS ---
Subjective Subjective Date of Service: 09/19/24 Reason For Visit: psychosis Interim History: Pt visible on the unit. Patient has been adherent to medications. She has not exhibited behavioral challenges. Compliant with care. She denies SI/HI. She is taking medications with back up IM per [facility]. She continues to self dialogue. Review of Systems Review of Systems Yes all other systems are reviewed and are negative, Unobtainable due to mental status and Other (patient refused to participate in ROS) Psychiatric: Reports paranoia Mental Status Exam Mental Status Exam Narrative: Pt with improved hygiene, casually groomed, in NAD Patient Appearance: Unkempt Patient Orientation: Person and Place Level of Consciousness: Awake Patient Behavior: Guarded and Passive Mood Description: Withdrawn Affect Description: Constricted Patient Cognition Impaired: Yes Ability to Follow Directions: Good Speech Pattern: Clear Diagnostics Vital Signs (24Hr): Vital Signs - 24 hr 09/18/24 20:00 09/19/24 09:41 Temperature 97.4 F Pulse Rate 85 Respiratory Rate 18 16 Blood Pressure 148/104 H Pulse Oximetry 98 Oxygen Delivery Method Room Air BMI result Body Mass Index 34.2 Medications Medications Current Medications Acetaminophen (Acetaminophen 325 Mg Tablet) 650 mg PO Q6H PRN PRN Reason: Headache/Pain Mild Scale (1-3) Al Hydroxide/Mg Hydroxide (Magnesium Hydrox/Alum Hydrox 30 Ml Oral.Susp) 30 ml PO Q6H PRN PRN Reason: Heartburn/Nausea Artificial Tears (Artificial Tears 15 Ml Drops) 2 drop EYE-BOTH Q4H PRN PRN Reason: Dry Eyes Last Admin: 09/18/24 12:51 Dose: 2 drop Divalproex Sodium (Divalproex Sodium 250 Mg Tablet.Dr) 250 mg PO BEDTIME [facility] Last Admin: 09/18/24 20:28 Dose: 250 mg Docusate Sodium (Docusate Sodium 100 Mg Capsule) 100 mg PO DAILY PRN PRN Reason: constipation Hydroxyzine HCl (Hydroxyzine Hcl 25 Mg Tablet) 25 mg PO Q6H PRN PRN Reason: Anxiety Magnesium Hydroxide (Milk Of Magnesia 30 Ml Oral.Susp) 30 ml PO DAILY PRN PRN Reason: Constipation Nifedipine (Nifedipine Er 60 Mg Tab.Er.24) 60 mg PO DAILY [facility] Last Admin: 09/19/24 09:46 Dose: 60 mg Olanzapine (Olanzapine 10 Mg Vial) 5 mg IM DAILY PRN PRN Reason: Refusal PO Last Admin: 09/16/24 09:19 Dose: 5 mg Olanzapine (Olanzapine 10 Mg Vial) 15 mg IM BEDTIME PRN PRN Reason: Refusal PO Olanzapine (Olanzapine Odt 10 Mg Tab.Rapdis) 5 mg TRANSLINGU DAILY [facility] Last Admin: 09/19/24 09:46 Dose: 5 mg Olanzapine (Olanzapine Odt 10 Mg Tab.Rapdis) 15 mg TRANSLINGU BEDTIME [facility] Last Admin: 09/18/24 20:28 Dose: 15 mg Omeprazole (Omeprazole 20 Mg Capsule.Dr) 20 mg PO DAILY@0630 [facility] Last Admin: 09/19/24 09:46 Dose: 20 mg Trazodone HCl (Trazodone Hcl 50 Mg Tablet) 50 mg PO BEDTIME MRX1 PRN PRN Reason: Insomnia Last Admin: 09/08/24 20:15 Dose: 50 mg Allergies Allergies Allergy/AdvReac Type Severity Reaction Status Date / Time blueberry [Blueberry] Allergy Severe SWELLING Verified 09/04/24 12:35 lisinopril Allergy Intermediate cough Verified 09/04/24 12:35 mushroom Allergy Intermediate SWELLING Verified 09/04/24 12:35 shellfish derived Allergy Unknown UNKNOWN Verified 09/04/24 12:35 [SHELLFISH DERIVED] thioridazine Allergy Unknown Unknown Verified 09/04/24 12:35 tomato [TOMATO] Allergy Unknown UNKNOWN Verified 09/04/24 12:35 CHOCOLATE Allergy Intermediate ITCHING Uncoded 09/04/24 12:35 From MELLARIL Allergy Intermediate SHORTNESS Uncoded 09/04/24 12:35 OF BREATH From THORAZINE Allergy Intermediate SHORTNESS Uncoded 09/04/24 12:35 OF BREATH Assessment & Plan Assessment & Plan (1) Schizophrenia: Qualifiers: Schizophrenia type: undifferentiated schizophrenia Qualified Code(s): F20.3 - Undifferentiated schizophrenia Status: Acute Code(s): F20.9 - Schizophrenia, unspecified Plan The patient is an elderly female with a past history of schizophrenia, with several services provided by [facility] with the court order to follow treatment, guardianship and other ancillary services who had been noncompliant with treatment. She is grossly disorganized paranoid, unable to provide any details. At this moment we will try to continue treatment. Plan 1. Gather collateral information. We will try to contact the guardian and the court order monitor for treatment over objection. 2. Restart Zyprexa as per med reconciliation form. 3. Continue with nifedipine and other medications for blood pressure. 4. Blood work and EKG. 5. Reassessment with results. 6. 5 minutes checks for safety. 7. We will get the legal court order for treatment over objection and reinforced it with IM. We have just added the backup p.r.n. IM Zyprexa as per court order. We change the Zyprexa to Zyprexa Zydis to assure compliance on September 11. 09/19: continue current management and treatment plan. Reason for continued inpatient stay Substantial Risk for: inability to function and rapid decompensation Time Spent With Patient Time: Total time managing care of this patient today ____ minutes.
[2024-09-19] MEDS: Divalproex Sodium 250 MG TABLET.DR PO (20:09)
[2024-09-19] MEDS: OLANZapine ODT 10 MG TAB.RAPDIS 15 MG TRANSLINGU (20:09)
[2024-09-19] MEDS: Artificial Tears 15 ML DROPS 2 DROP EYE-BOTH (20:25)
[2024-09-20] MEDS: hydrOXYzine HCL 25 MG TABLET PO (03:04)
[2024-09-20] MEDS: Acetaminophen 325 MG TABLET 650 MG PO (03:04)
[2024-09-20 08:00] VITALS: RESP 18
[2024-09-20] MEDS: OLANZapine ODT 10 MG TAB.RAPDIS 5 MG TRANSLINGU (09:12)
--- NOTE | 2024-09-20 10:20 | P.PNPSI_ITS ---
Subjective Subjective Date of Service: 09/20/24 Reason For Visit: psychosis Interim History: Pt visible on the unit. Refused VS today. Patient has been adherent to court ordered medications. She has not exhibited behavioral challenges. She denies SI/HI. She is taking medications with back up IM per [facility]. She continues to self dialogue. +AH of voices coming through the wall. Review of Systems Review of Systems Yes all other systems are reviewed and are negative, Unobtainable due to mental status and Other (patient refused to participate in ROS) Psychiatric: Reports paranoia Mental Status Exam Mental Status Exam Narrative: Pt with improved hygiene, casually groomed, in NAD Patient Appearance: Unkempt Patient Orientation: Person and Place Level of Consciousness: Awake Patient Behavior: Guarded and Passive Mood Description: Withdrawn Affect Description: Constricted Patient Cognition Impaired: Yes Ability to Follow Directions: Good Speech Pattern: Clear Diagnostics Vital Signs (24Hr): Vital Signs - 24 hr 09/20/24 08:00 Respiratory Rate 18 BMI result Body Mass Index 34.2 Medications Medications Current Medications Acetaminophen (Acetaminophen 325 Mg Tablet) 650 mg PO Q6H PRN PRN Reason: Headache/Pain Mild Scale (1-3) Last Admin: 09/20/24 03:04 Dose: 650 mg Al Hydroxide/Mg Hydroxide (Magnesium Hydrox/Alum Hydrox 30 Ml Oral.Susp) 30 ml PO Q6H PRN PRN Reason: Heartburn/Nausea Artificial Tears (Artificial Tears 15 Ml Drops) 2 drop EYE-BOTH Q4H PRN PRN Reason: Dry Eyes Last Admin: 09/19/24 20:25 Dose: 2 drop Divalproex Sodium (Divalproex Sodium 250 Mg Tablet.Dr) 250 mg PO BEDTIME [facility] Last Admin: 09/19/24 20:09 Dose: 250 mg Docusate Sodium (Docusate Sodium 100 Mg Capsule) 100 mg PO DAILY PRN PRN Reason: constipation Hydroxyzine HCl (Hydroxyzine Hcl 25 Mg Tablet) 25 mg PO Q6H PRN PRN Reason: Anxiety Last Admin: 09/20/24 03:04 Dose: 25 mg Magnesium Hydroxide (Milk Of Magnesia 30 Ml Oral.Susp) 30 ml PO DAILY PRN PRN Reason: Constipation Nifedipine (Nifedipine Er 60 Mg Tab.Er.24) 60 mg PO DAILY [facility] Last Admin: 09/19/24 09:46 Dose: 60 mg Olanzapine (Olanzapine 10 Mg Vial) 5 mg IM DAILY PRN PRN Reason: Refusal PO Last Admin: 09/16/24 09:19 Dose: 5 mg Olanzapine (Olanzapine 10 Mg Vial) 15 mg IM BEDTIME PRN PRN Reason: Refusal PO Olanzapine (Olanzapine Odt 10 Mg Tab.Rapdis) 5 mg TRANSLINGU DAILY [facility] Last Admin: 09/20/24 09:12 Dose: 5 mg Olanzapine (Olanzapine Odt 10 Mg Tab.Rapdis) 15 mg TRANSLINGU BEDTIME [facility] Last Admin: 09/19/24 20:09 Dose: 15 mg Omeprazole (Omeprazole 20 Mg Capsule.Dr) 20 mg PO DAILY@0630 [facility] Last Admin: 09/20/24 06:34 Dose: Not Given Trazodone HCl (Trazodone Hcl 50 Mg Tablet) 50 mg PO BEDTIME MRX1 PRN PRN Reason: Insomnia Last Admin: 09/08/24 20:15 Dose: 50 mg Allergies Allergies Allergy/AdvReac Type Severity Reaction Status Date / Time blueberry [Blueberry] Allergy Severe SWELLING Verified 09/04/24 12:35 lisinopril Allergy Intermediate cough Verified 09/04/24 12:35 mushroom Allergy Intermediate SWELLING Verified 09/04/24 12:35 shellfish derived Allergy Unknown UNKNOWN Verified 09/04/24 12:35 [SHELLFISH DERIVED] thioridazine Allergy Unknown Unknown Verified 09/04/24 12:35 tomato [TOMATO] Allergy Unknown UNKNOWN Verified 09/04/24 12:35 CHOCOLATE Allergy Intermediate ITCHING Uncoded 09/04/24 12:35 From MELLARIL Allergy Intermediate SHORTNESS Uncoded 09/04/24 12:35 OF BREATH From THORAZINE Allergy Intermediate SHORTNESS Uncoded 09/04/24 12:35 OF BREATH Assessment & Plan Assessment & Plan (1) Schizophrenia: Qualifiers: Schizophrenia type: undifferentiated schizophrenia Qualified Code(s): F20.3 - Undifferentiated schizophrenia Status: Acute Code(s): F20.9 - Schizophrenia, unspecified Plan The patient is an elderly female with a past history of schizophrenia, with several services provided by [facility] with the court order to follow treatment, guardianship and other ancillary services who had been noncompliant with treatment. She is grossly disorganized paranoid, unable to provide any details. At this moment we will try to continue treatment. Plan 1. Gather collateral information. We will try to contact the guardian and the court order monitor for treatment over objection. 2. Restart Zyprexa as per med reconciliation form. 3. Continue with nifedipine and other medications for blood pressure. 4. Blood work and EKG. 5. Reassessment with results. 6. 5 minutes checks for safety. 7. We will get the legal court order for treatment over objection and reinforced it with IM. We have just added the backup p.r.n. IM Zyprexa as per court order. We change the Zyprexa to Zyprexa Zydis to assure compliance on September 11. 09/19: continue current management and treatment plan. 09/20: Continue current management and treatment plan. Reason for continued inpatient stay Substantial Risk for: inability to function, rapid decompensation and med/psych decompensation Time Spent With Patient Time: Total time managing care of this patient today ____ minutes.
[2024-09-20] MEDS: Artificial Tears 15 ML DROPS 2 DROP EYE-BOTH ×2 (10:26→21:01)
[2024-09-20 20:00] VITALS: RESP 17
[2024-09-20] MEDS: OLANZapine ODT 10 MG TAB.RAPDIS 15 MG TRANSLINGU (21:00)
[2024-09-20] MEDS: Divalproex Sodium 250 MG TABLET.DR PO (21:00)
[2024-09-21] MEDS: Acetaminophen 325 MG TABLET 650 MG PO (03:35)
[2024-09-21 08:40] VITALS: BP 177/87
[2024-09-21] MEDS: NIFEdipine ER 60 MG TAB.ER.24 PO (08:40)
[2024-09-21] MEDS: OLANZapine ODT 10 MG TAB.RAPDIS 5 MG TRANSLINGU (08:42)
[2024-09-21] MEDS: Omeprazole 20 MG CAPSULE.DR PO (08:42)
--- NOTE | 2024-09-21 10:12 | HO.PSYCHPN ---
Subjective Subjective Date of Service: 09/21/24 Reason For Visit: psychosis Subjective Notes: Conditional Voluntary Interim History: The nursing staff reported the patient had been disorganized, but compliant with Zyprexa since she does not want to have IM. On interview the patient was disorganized, difficult to understand. Mental Status Exam Mental Status Exam Patient Appearance: Appropriate Patient Orientation: Person and Situation Level of Consciousness: Awake and Appropriate Patient Behavior: Guarded and Passive Mood Description: Withdrawn Affect Description: Labile Patient Cognition Impaired: Yes Ability to Follow Directions: Good Speech Pattern: Clear Hallucinations: Auditory Delusions: Paranoid Ideation and Ideas of Reference Thought Process: Distracted and Slowed Thinking Thought Content: positive for [place] and positive for Poverty of Content Judgement: Fair Diagnostics Vital Signs (24Hr): Vital Signs - 24 hr 09/20/24 20:00 09/21/24 08:40 Respiratory Rate 17 Blood Pressure 177/87 H BMI result Body Mass Index 34.2 Medications Medications Current Medications Acetaminophen (Acetaminophen 325 Mg Tablet) 650 mg PO Q6H PRN PRN Reason: Headache/Pain Mild Scale (1-3) Last Admin: 09/21/24 03:35 Dose: 325 mg Al Hydroxide/Mg Hydroxide (Magnesium Hydrox/Alum Hydrox 30 Ml Oral.Susp) 30 ml PO Q6H PRN PRN Reason: Heartburn/Nausea Artificial Tears (Artificial Tears 15 Ml Drops) 2 drop EYE-BOTH Q4H PRN PRN Reason: Dry Eyes Last Admin: 09/20/24 21:01 Dose: 2 drop Divalproex Sodium (Divalproex Sodium 250 Mg Tablet.Dr) 250 mg PO BEDTIME [facility] Last Admin: 09/20/24 21:00 Dose: 250 mg Docusate Sodium (Docusate Sodium 100 Mg Capsule) 100 mg PO DAILY PRN PRN Reason: constipation Hydroxyzine HCl (Hydroxyzine Hcl 25 Mg Tablet) 25 mg PO Q6H PRN PRN Reason: Anxiety Last Admin: 09/20/24 03:04 Dose: 25 mg Magnesium Hydroxide (Milk Of Magnesia 30 Ml Oral.Susp) 30 ml PO DAILY PRN PRN Reason: Constipation Nifedipine (Nifedipine Er 60 Mg Tab.Er.24) 60 mg PO DAILY [facility] Last Admin: 09/21/24 08:40 Dose: 60 mg Olanzapine (Olanzapine 10 Mg Vial) 5 mg IM DAILY PRN PRN Reason: Refusal PO Last Admin: 09/16/24 09:19 Dose: 5 mg Olanzapine (Olanzapine Odt 10 Mg Tab.Rapdis) 5 mg TRANSLINGU DAILY [facility] Last Admin: 09/21/24 08:42 Dose: 5 mg Olanzapine (Olanzapine Odt 10 Mg Tab.Rapdis) 20 mg TRANSLINGU BEDTIME [facility] Olanzapine (Olanzapine 10 Mg Vial) 20 mg IM BEDTIME PRN PRN Reason: Refusal PO Omeprazole (Omeprazole 20 Mg Capsule.Dr) 20 mg PO DAILY@0630 [facility] Last Admin: 09/21/24 08:42 Dose: 20 mg Trazodone HCl (Trazodone Hcl 50 Mg Tablet) 50 mg PO BEDTIME MRX1 PRN PRN Reason: Insomnia Last Admin: 09/08/24 20:15 Dose: 50 mg Allergies Allergies Allergy/AdvReac Type Severity Reaction Status Date / Time blueberry [Blueberry] Allergy Severe SWELLING Verified 09/04/24 12:35 lisinopril Allergy Intermediate cough Verified 09/04/24 12:35 mushroom Allergy Intermediate SWELLING Verified 09/04/24 12:35 shellfish derived Allergy Unknown UNKNOWN Verified 09/04/24 12:35 [SHELLFISH DERIVED] thioridazine Allergy Unknown Unknown Verified 09/04/24 12:35 tomato [TOMATO] Allergy Unknown UNKNOWN Verified 09/04/24 12:35 CHOCOLATE Allergy Intermediate ITCHING Uncoded 09/04/24 12:35 From MELLARIL Allergy Intermediate SHORTNESS Uncoded 09/04/24 12:35 OF BREATH From THORAZINE Allergy Intermediate SHORTNESS Uncoded 09/04/24 12:35 OF BREATH Assessment & Plan Assessment & Plan (1) Schizophrenia: Qualifiers: Schizophrenia type: undifferentiated schizophrenia Qualified Code(s): F20.3 - Undifferentiated schizophrenia Status: Acute Code(s): F20.9 - Schizophrenia, unspecified Plan The patient is an elderly female with a past history of schizophrenia, with several services provided by [facility] with the court order to follow treatment, guardianship and other ancillary services who had been noncompliant with treatment. She is grossly disorganized paranoid, unable to provide any details. At this moment we will try to continue treatment. Plan 1. Gather collateral information. We will try to contact the guardian and the court order monitor for treatment over objection. 2. Restart Zyprexa as per med reconciliation form. 3. Continue with nifedipine and other medications for blood pressure. 4. Blood work and EKG. 5. Reassessment with results. 6. 5 minutes checks for safety. 7. We will get the legal court order for treatment over objection and reinforced it with IM. We have just added the backup p.r.n. IM Zyprexa as per court order. We change the Zyprexa to Zyprexa Zydis to assure compliance on September 11. Reason for continued inpatient stay Substantial Risk for: inability to function, rapid decompensation and med/psych decompensation Time Spent With Patient Time: Total time managing care of this patient today __20__ minutes.
[2024-09-21 20:00] VITALS: BP 188/89; PULSE 88; RESP 16; TEMP 36.1; O2SAT 97
[2024-09-21] MEDS: OLANZapine ODT 10 MG TAB.RAPDIS 20 MG TRANSLINGU (21:01)
[2024-09-22] MEDS: Acetaminophen 325 MG TABLET 650 MG PO (03:22)
[2024-09-22 08:57] VITALS: PULSE 83; RESP 18; TEMP 36.2; O2SAT 97
[2024-09-22] MEDS: OLANZapine ODT 10 MG TAB.RAPDIS 5 MG TRANSLINGU (08:58)
[2024-09-22] MEDS: Omeprazole 20 MG CAPSULE.DR PO (08:59)
[2024-09-22] MEDS: Artificial Tears 15 ML DROPS 2 DROP EYE-BOTH ×2 (09:03→20:22)
--- NOTE | 2024-09-22 11:59 | HO.PSYCHPN ---
Subjective Subjective Date of Service: 09/22/24 Reason For Visit: psychosis Subjective Notes: Conditional Voluntary Interim History: The nursing staff reported the patient had been compliant only with Zyprexa, she was seen spitting her Depakote out. She slept 6 hours. She wrote a compliant to human rights officer where she wrote a lot of delusive thoughts with sexual content. On interview the patient remains disorganized, psychotic. Mental Status Exam Mental Status Exam Patient Appearance: Disheveled and Unkempt Patient Orientation: Person and Situation Level of Consciousness: Awake Patient Behavior: Guarded and Passive Mood Description: Withdrawn Affect Description: Constricted Patient Cognition Impaired: Yes Ability to Follow Directions: Fair Speech Pattern: Perseverating, Impoverished and Poor Articulation Hallucinations: Auditory Delusions: Paranoid Ideation and Ideas of Reference Thought Process: Illogical, Distracted and Slowed Thinking Thought Content: positive for [place] and positive for Poverty of Content Judgement: Poor Diagnostics Vital Signs (24Hr): Vital Signs - 24 hr 09/21/24 20:00 09/22/24 08:57 Temperature 97 F 97.1 F Pulse Rate 88 83 Respiratory Rate 16 18 Blood Pressure 188/89 H Pulse Oximetry 97 97 Oxygen Delivery Method Room Air Room Air BMI result Body Mass Index 34.2 Medications Medications Current Medications Acetaminophen (Acetaminophen 325 Mg Tablet) 650 mg PO Q6H PRN PRN Reason: Headache/Pain Mild Scale (1-3) Last Admin: 09/22/24 03:22 Dose: 650 mg Al Hydroxide/Mg Hydroxide (Magnesium Hydrox/Alum Hydrox 30 Ml Oral.Susp) 30 ml PO Q6H PRN PRN Reason: Heartburn/Nausea Artificial Tears (Artificial Tears 15 Ml Drops) 2 drop EYE-BOTH Q4H PRN PRN Reason: Dry Eyes Last Admin: 09/22/24 09:03 Dose: 2 drop Divalproex Sodium (Divalproex Sodium 250 Mg Tablet.Dr) 250 mg PO BEDTIME [facility] Last Admin: 09/21/24 21:09 Dose: Not Given Docusate Sodium (Docusate Sodium 100 Mg Capsule) 100 mg PO DAILY PRN PRN Reason: constipation Hydroxyzine HCl (Hydroxyzine Hcl 25 Mg Tablet) 25 mg PO Q6H PRN PRN Reason: Anxiety Last Admin: 09/20/24 03:04 Dose: 25 mg Magnesium Hydroxide (Milk Of Magnesia 30 Ml Oral.Susp) 30 ml PO DAILY PRN PRN Reason: Constipation Nifedipine (Nifedipine Er 60 Mg Tab.Er.24) 60 mg PO DAILY [facility] Last Admin: 09/22/24 10:50 Dose: Not Given Olanzapine (Olanzapine 10 Mg Vial) 5 mg IM DAILY PRN PRN Reason: Refusal PO Last Admin: 09/16/24 09:19 Dose: 5 mg Olanzapine (Olanzapine Odt 10 Mg Tab.Rapdis) 5 mg TRANSLINGU DAILY [facility] Last Admin: 09/22/24 08:58 Dose: 5 mg Olanzapine (Olanzapine Odt 10 Mg Tab.Rapdis) 20 mg TRANSLINGU BEDTIME [facility] Last Admin: 09/21/24 21:01 Dose: 20 mg Olanzapine (Olanzapine 10 Mg Vial) 20 mg IM BEDTIME PRN PRN Reason: Refusal PO Omeprazole (Omeprazole 20 Mg Capsule.Dr) 20 mg PO DAILY@0630 [facility] Last Admin: 09/22/24 08:59 Dose: 20 mg Trazodone HCl (Trazodone Hcl 50 Mg Tablet) 50 mg PO BEDTIME MRX1 PRN PRN Reason: Insomnia Last Admin: 09/08/24 20:15 Dose: 50 mg Allergies Allergies Allergy/AdvReac Type Severity Reaction Status Date / Time blueberry [Blueberry] Allergy Severe SWELLING Verified 09/04/24 12:35 lisinopril Allergy Intermediate cough Verified 09/04/24 12:35 mushroom Allergy Intermediate SWELLING Verified 09/04/24 12:35 shellfish derived Allergy Unknown UNKNOWN Verified 09/04/24 12:35 [SHELLFISH DERIVED] thioridazine Allergy Unknown Unknown Verified 09/04/24 12:35 tomato [TOMATO] Allergy Unknown UNKNOWN Verified 09/04/24 12:35 CHOCOLATE Allergy Intermediate ITCHING Uncoded 09/04/24 12:35 From MELLARIL Allergy Intermediate SHORTNESS Uncoded 09/04/24 12:35 OF BREATH From THORAZINE Allergy Intermediate SHORTNESS Uncoded 09/04/24 12:35 OF BREATH Assessment & Plan Assessment & Plan (1) Schizophrenia: Qualifiers: Schizophrenia type: undifferentiated schizophrenia Qualified Code(s): F20.3 - Undifferentiated schizophrenia Status: Acute Code(s): F20.9 - Schizophrenia, unspecified Plan The patient is an elderly female with a past history of schizophrenia, with several services provided by [facility] with the court order to follow treatment, guardianship and other ancillary services who had been noncompliant with treatment. She is grossly disorganized paranoid, unable to provide any details. At this moment we will try to continue treatment. Plan 1. Gather collateral information. We will try to contact the guardian and the court order monitor for treatment over objection. 2. Restart Zyprexa as per med reconciliation form. 3. Continue with nifedipine and other medications for blood pressure. 4. Blood work and EKG. 5. Reassessment with results. 6. 5 minutes checks for safety. 7. We will get the legal court order for treatment over objection and reinforced it with IM. We have just added the backup p.r.n. IM Zyprexa as per court order. We change the Zyprexa to Zyprexa Zydis to assure compliance on September 11. Reason for continued inpatient stay Substantial Risk for: inability to function, rapid decompensation and med/psych decompensation Time Spent With Patient Time: Total time managing care of this patient today __20__ minutes.
[2024-09-22 20:00] VITALS: BP 180/98; PULSE 94; RESP 17; TEMP 36.9; O2SAT 99
[2024-09-22] MEDS: Divalproex Sodium 250 MG TABLET.DR PO (20:22)
[2024-09-22] MEDS: OLANZapine ODT 10 MG TAB.RAPDIS 20 MG TRANSLINGU (20:22)
[2024-09-23 08:00] VITALS: RESP 18
[2024-09-23] MEDS: Artificial Tears 15 ML DROPS 2 DROP EYE-BOTH ×2 (10:25→20:53)
[2024-09-23] MEDS: OLANZapine ODT 10 MG TAB.RAPDIS 5 MG TRANSLINGU (10:30)
[2024-09-23] MEDS: Omeprazole 20 MG CAPSULE.DR PO (10:34)
--- NOTE | 2024-09-23 15:37 | P.PNPSI_ITS ---
Subjective Subjective Date of Service: 09/23/24 Reason For Visit: psychosis Subjective Notes: Conditional Voluntary Interim History: The nursing staff reported the patient had been delusional stating that there is a voice that she has fibroids. On interview the patient reported that she wants to go home, she had been compliant with treatment. Mental Status Exam Mental Status Exam Patient Appearance: Unkempt Patient Orientation: Person and Situation Level of Consciousness: Awake Patient Behavior: Guarded and Passive Mood Description: Calm Affect Description: Labile Patient Cognition Impaired: Yes Ability to Follow Directions: Fair Speech Pattern: Clear Hallucinations: Auditory Delusions: Paranoid Ideation and Ideas of Reference Thought Process: Distracted and Slowed Thinking Thought Content: positive for [place] and positive for Poverty of Content Judgement: Poor Diagnostics Vital Signs (24Hr): Vital Signs - 24 hr 09/22/24 20:00 09/23/24 08:00 Temperature 98.5 F Pulse Rate 94 Respiratory Rate 17 18 Blood Pressure 180/98 H Pulse Oximetry 99 Oxygen Delivery Method Room Air BMI result Body Mass Index 34.2 Medications Medications Current Medications Acetaminophen (Acetaminophen 325 Mg Tablet) 650 mg PO Q6H PRN PRN Reason: Headache/Pain Mild Scale (1-3) Last Admin: 09/22/24 03:22 Dose: 650 mg Al Hydroxide/Mg Hydroxide (Magnesium Hydrox/Alum Hydrox 30 Ml Oral.Susp) 30 ml PO Q6H PRN PRN Reason: Heartburn/Nausea Artificial Tears (Artificial Tears 15 Ml Drops) 2 drop EYE-BOTH Q4H PRN PRN Reason: Dry Eyes Last Admin: 09/23/24 10:25 Dose: 2 drop Divalproex Sodium (Divalproex Sodium 250 Mg Tablet.Dr) 250 mg PO BEDTIME [facility] Last Admin: 09/22/24 20:22 Dose: 250 mg Docusate Sodium (Docusate Sodium 100 Mg Capsule) 100 mg PO DAILY PRN PRN Reason: constipation Hydroxyzine HCl (Hydroxyzine Hcl 25 Mg Tablet) 25 mg PO Q6H PRN PRN Reason: Anxiety Last Admin: 09/20/24 03:04 Dose: 25 mg Magnesium Hydroxide (Milk Of Magnesia 30 Ml Oral.Susp) 30 ml PO DAILY PRN PRN Reason: Constipation Nifedipine (Nifedipine Er 60 Mg Tab.Er.24) 60 mg PO DAILY [facility] Last Admin: 09/23/24 10:36 Dose: Not Given Olanzapine (Olanzapine 10 Mg Vial) 5 mg IM DAILY PRN PRN Reason: Refusal PO Last Admin: 09/16/24 09:19 Dose: 5 mg Olanzapine (Olanzapine Odt 10 Mg Tab.Rapdis) 5 mg TRANSLINGU DAILY [facility] Last Admin: 09/23/24 10:30 Dose: 5 mg Olanzapine (Olanzapine Odt 10 Mg Tab.Rapdis) 20 mg TRANSLINGU BEDTIME [facility] Last Admin: 09/22/24 20:22 Dose: 20 mg Olanzapine (Olanzapine 10 Mg Vial) 20 mg IM BEDTIME PRN PRN Reason: Refusal PO Omeprazole (Omeprazole 20 Mg Capsule.Dr) 20 mg PO DAILY@0630 [facility] Last Admin: 09/23/24 10:34 Dose: 20 mg Trazodone HCl (Trazodone Hcl 50 Mg Tablet) 50 mg PO BEDTIME MRX1 PRN PRN Reason: Insomnia Last Admin: 09/08/24 20:15 Dose: 50 mg Allergies Allergies Allergy/AdvReac Type Severity Reaction Status Date / Time blueberry [Blueberry] Allergy Severe SWELLING Verified 09/04/24 12:35 lisinopril Allergy Intermediate cough Verified 09/04/24 12:35 mushroom Allergy Intermediate SWELLING Verified 09/04/24 12:35 shellfish derived Allergy Unknown UNKNOWN Verified 09/04/24 12:35 [SHELLFISH DERIVED] thioridazine Allergy Unknown Unknown Verified 09/04/24 12:35 tomato [TOMATO] Allergy Unknown UNKNOWN Verified 09/04/24 12:35 CHOCOLATE Allergy Intermediate ITCHING Uncoded 09/04/24 12:35 From MELLARIL Allergy Intermediate SHORTNESS Uncoded 09/04/24 12:35 OF BREATH From THORAZINE Allergy Intermediate SHORTNESS Uncoded 09/04/24 12:35 OF BREATH Assessment & Plan Assessment & Plan (1) Schizophrenia: Qualifiers: Schizophrenia type: undifferentiated schizophrenia Qualified Code(s): F20.3 - Undifferentiated schizophrenia Status: Acute Code(s): F20.9 - Schizophrenia, unspecified Plan The patient is an elderly female with a past history of schizophrenia, with several services provided by [facility] with the court order to follow treatment, guardianship and other ancillary services who had been noncompliant with treatment. She is grossly disorganized paranoid, unable to provide any details. At this moment we will try to continue treatment. Plan 1. Gather collateral information. We will try to contact the guardian and the court order monitor for treatment over objection. 2. Restart Zyprexa as per med reconciliation form. 3. Continue with nifedipine and other medications for blood pressure. 4. Blood work and EKG. 5. Reassessment with results. 6. 5 minutes checks for safety. 7. We will get the legal court order for treatment over objection and reinforced it with IM. We have just added the backup p.r.n. IM Zyprexa as per court order. We change the Zyprexa to Zyprexa Zydis to assure compliance on September 11. Reason for continued inpatient stay Substantial Risk for: inability to function, rapid decompensation and med/psych decompensation Time Spent With Patient Time: Total time managing care of this patient today __20__ minutes.
--- NOTE | 2024-09-23 18:07 | PC.NURSE ---
Patient declined VS, Nifidipine held.
[2024-09-23] MEDS: Divalproex Sodium 250 MG TABLET.DR PO (20:54)
[2024-09-23] MEDS: OLANZapine ODT 10 MG TAB.RAPDIS 20 MG TRANSLINGU (20:54)
[2024-09-24] MEDS: Omeprazole 20 MG CAPSULE.DR PO (06:12)
[2024-09-24] MEDS: OLANZapine ODT 10 MG TAB.RAPDIS 5 MG TRANSLINGU (09:06)
[2024-09-24 14:58] VITALS: BMI 34.4
--- NOTE | 2024-09-24 16:27 | HO.PSYCHPN ---
Subjective Subjective Date of Service: 09/24/24 Reason For Visit: psychosis Subjective Notes: Conditional Voluntary Interim History: The nursing staff reported the patient had been compliant only with Zyprexa. No behavioral disturbances. On interview the patient remains disorganized at times but easily redirectable. Mental Status Exam Mental Status Exam Patient Appearance: Unkempt Patient Orientation: Person and Situation Level of Consciousness: Awake Patient Behavior: Guarded and Passive Mood Description: Withdrawn Affect Description: Constricted Patient Cognition Impaired: Yes Ability to Follow Directions: Good Speech Pattern: Clear Hallucinations: Auditory Delusions: Paranoid Ideation and Ideas of Reference Thought Process: Distracted and Slowed Thinking Thought Content: positive for [place] and positive for Poverty of Content Judgement: Fair Diagnostics Vital Signs (24Hr): BMI result Body Mass Index 34.4 Medications Medications Current Medications Acetaminophen (Acetaminophen 325 Mg Tablet) 650 mg PO Q6H PRN PRN Reason: Headache/Pain Mild Scale (1-3) Last Admin: 09/22/24 03:22 Dose: 650 mg Al Hydroxide/Mg Hydroxide (Magnesium Hydrox/Alum Hydrox 30 Ml Oral.Susp) 30 ml PO Q6H PRN PRN Reason: Heartburn/Nausea Artificial Tears (Artificial Tears 15 Ml Drops) 2 drop EYE-BOTH Q4H PRN PRN Reason: Dry Eyes Last Admin: 09/23/24 20:53 Dose: 2 drop Divalproex Sodium (Divalproex Sodium 250 Mg Tablet.Dr) 250 mg PO BEDTIME [facility] Last Admin: 09/23/24 20:54 Dose: 250 mg Docusate Sodium (Docusate Sodium 100 Mg Capsule) 100 mg PO DAILY PRN PRN Reason: constipation Hydroxyzine HCl (Hydroxyzine Hcl 25 Mg Tablet) 25 mg PO Q6H PRN PRN Reason: Anxiety Last Admin: 09/20/24 03:04 Dose: 25 mg Magnesium Hydroxide (Milk Of Magnesia 30 Ml Oral.Susp) 30 ml PO DAILY PRN PRN Reason: Constipation Nifedipine (Nifedipine Er 60 Mg Tab.Er.24) 60 mg PO DAILY [facility] Last Admin: 09/24/24 13:59 Dose: Not Given Olanzapine (Olanzapine 10 Mg Vial) 5 mg IM DAILY PRN PRN Reason: Refusal PO Last Admin: 09/16/24 09:19 Dose: 5 mg Olanzapine (Olanzapine Odt 10 Mg Tab.Rapdis) 5 mg TRANSLINGU DAILY [facility] Last Admin: 09/24/24 09:06 Dose: 5 mg Olanzapine (Olanzapine Odt 10 Mg Tab.Rapdis) 20 mg TRANSLINGU BEDTIME [facility] Last Admin: 09/23/24 20:54 Dose: 20 mg Olanzapine (Olanzapine 10 Mg Vial) 20 mg IM BEDTIME PRN PRN Reason: Refusal PO Omeprazole (Omeprazole 20 Mg Capsule.Dr) 20 mg PO DAILY@0630 [facility] Last Admin: 09/24/24 06:12 Dose: 20 mg Trazodone HCl (Trazodone Hcl 50 Mg Tablet) 50 mg PO BEDTIME MRX1 PRN PRN Reason: Insomnia Last Admin: 09/08/24 20:15 Dose: 50 mg Allergies Allergies Allergy/AdvReac Type Severity Reaction Status Date / Time blueberry [Blueberry] Allergy Severe SWELLING Verified 09/04/24 12:35 lisinopril Allergy Intermediate cough Verified 09/04/24 12:35 mushroom Allergy Intermediate SWELLING Verified 09/04/24 12:35 shellfish derived Allergy Unknown UNKNOWN Verified 09/04/24 12:35 [SHELLFISH DERIVED] thioridazine Allergy Unknown Unknown Verified 09/04/24 12:35 tomato [TOMATO] Allergy Unknown UNKNOWN Verified 09/04/24 12:35 CHOCOLATE Allergy Intermediate ITCHING Uncoded 09/04/24 12:35 From MELLARIL Allergy Intermediate SHORTNESS Uncoded 09/04/24 12:35 OF BREATH From THORAZINE Allergy Intermediate SHORTNESS Uncoded 09/04/24 12:35 OF BREATH Assessment & Plan Assessment & Plan (1) Schizophrenia: Qualifiers: Schizophrenia type: undifferentiated schizophrenia Qualified Code(s): F20.3 - Undifferentiated schizophrenia Status: Acute Code(s): F20.9 - Schizophrenia, unspecified Plan The patient is an elderly female with a past history of schizophrenia, with several services provided by [facility] with the court order to follow treatment, guardianship and other ancillary services who had been noncompliant with treatment. She is grossly disorganized paranoid, unable to provide any details. At this moment we will try to continue treatment. Plan 1. Gather collateral information. We will try to contact the guardian and the court order monitor for treatment over objection. 2. Restart Zyprexa as per med reconciliation form. 3. Continue with nifedipine and other medications for blood pressure. 4. Blood work and EKG. 5. Reassessment with results. 6. 5 minutes checks for safety. 7. We will get the legal court order for treatment over objection and reinforced it with IM. We have just added the backup p.r.n. IM Zyprexa as per court order. We change the Zyprexa to Zyprexa Zydis to assure compliance on September 11. Reason for continued inpatient stay Substantial Risk for: inability to function, rapid decompensation and med/psych decompensation Time Spent With Patient Time: Total time managing care of this patient today __20__ minutes.
[2024-09-24 20:00] VITALS: RESP 16
[2024-09-24] MEDS: OLANZapine ODT 10 MG TAB.RAPDIS 20 MG TRANSLINGU (20:18)
[2024-09-25] MEDS: NIFEdipine ER 60 MG TAB.ER.24 PO (09:58)
[2024-09-25] MEDS: OLANZapine ODT 10 MG TAB.RAPDIS 5 MG TRANSLINGU (09:59)
--- NOTE | 2024-09-25 14:15 | HO.PSYCHPN ---
Subjective Subjective Date of Service: 09/25/24 Reason For Visit: psychosis Subjective Notes: Section 7 and Section 8 Interim History: The nursing staff reported the patient has refused her vital signs she was seen self dialogue in [facility] and she took only her Zyprexa as per court order. On interview the patient reported that she wants to go home I explained her that we will discuss discharge planning if she continues to have compliance with her treatment. Mental Status Exam Mental Status Exam Patient Appearance: Appropriate Patient Orientation: Person and Situation Level of Consciousness: Awake and Appropriate Patient Behavior: Guarded and Passive Mood Description: Withdrawn Affect Description: Constricted Patient Cognition Impaired: Yes Ability to Follow Directions: Good Speech Pattern: Clear Hallucinations: None Delusions: Paranoid Ideation and Ideas of Reference Thought Process: Distracted and Slowed Thinking Thought Content: positive for [place] and positive for Poverty of Content Judgement: Fair Diagnostics Vital Signs (24Hr): Vital Signs - 24 hr 09/24/24 20:00 Respiratory Rate 16 BMI result Body Mass Index 34.4 Medications Medications Current Medications Acetaminophen (Acetaminophen 325 Mg Tablet) 650 mg PO Q6H PRN PRN Reason: Headache/Pain Mild Scale (1-3) Last Admin: 09/22/24 03:22 Dose: 650 mg Al Hydroxide/Mg Hydroxide (Magnesium Hydrox/Alum Hydrox 30 Ml Oral.Susp) 30 ml PO Q6H PRN PRN Reason: Heartburn/Nausea Artificial Tears (Artificial Tears 15 Ml Drops) 2 drop EYE-BOTH Q4H PRN PRN Reason: Dry Eyes Last Admin: 09/23/24 20:53 Dose: 2 drop Divalproex Sodium (Divalproex Sodium 250 Mg Tablet.Dr) 250 mg PO BEDTIME [facility] Last Admin: 09/24/24 20:31 Dose: Not Given Docusate Sodium (Docusate Sodium 100 Mg Capsule) 100 mg PO DAILY PRN PRN Reason: constipation Hydroxyzine HCl (Hydroxyzine Hcl 25 Mg Tablet) 25 mg PO Q6H PRN PRN Reason: Anxiety Last Admin: 09/20/24 03:04 Dose: 25 mg Magnesium Hydroxide (Milk Of Magnesia 30 Ml Oral.Susp) 30 ml PO DAILY PRN PRN Reason: Constipation Nifedipine (Nifedipine Er 60 Mg Tab.Er.24) 60 mg PO DAILY [facility] Last Admin: 09/25/24 09:58 Dose: 60 mg Olanzapine (Olanzapine 10 Mg Vial) 5 mg IM DAILY PRN PRN Reason: Refusal PO Last Admin: 09/16/24 09:19 Dose: 5 mg Olanzapine (Olanzapine Odt 10 Mg Tab.Rapdis) 5 mg TRANSLINGU DAILY [facility] Last Admin: 09/25/24 09:59 Dose: 5 mg Olanzapine (Olanzapine Odt 10 Mg Tab.Rapdis) 20 mg TRANSLINGU BEDTIME [facility] Last Admin: 09/24/24 20:18 Dose: 20 mg Olanzapine (Olanzapine 10 Mg Vial) 20 mg IM BEDTIME PRN PRN Reason: Refusal PO Omeprazole (Omeprazole 20 Mg Capsule.Dr) 20 mg PO DAILY@0630 [facility] Last Admin: 09/25/24 06:04 Dose: Not Given Trazodone HCl (Trazodone Hcl 50 Mg Tablet) 50 mg PO BEDTIME MRX1 PRN PRN Reason: Insomnia Last Admin: 09/08/24 20:15 Dose: 50 mg Allergies Allergies Allergy/AdvReac Type Severity Reaction Status Date / Time blueberry [Blueberry] Allergy Severe SWELLING Verified 09/04/24 12:35 lisinopril Allergy Intermediate cough Verified 09/04/24 12:35 mushroom Allergy Intermediate SWELLING Verified 09/04/24 12:35 shellfish derived Allergy Unknown UNKNOWN Verified 09/04/24 12:35 [SHELLFISH DERIVED] thioridazine Allergy Unknown Unknown Verified 09/04/24 12:35 tomato [TOMATO] Allergy Unknown UNKNOWN Verified 09/04/24 12:35 CHOCOLATE Allergy Intermediate ITCHING Uncoded 09/04/24 12:35 From MELLARIL Allergy Intermediate SHORTNESS Uncoded 09/04/24 12:35 OF BREATH From THORAZINE Allergy Intermediate SHORTNESS Uncoded 09/04/24 12:35 OF BREATH Assessment & Plan Assessment & Plan (1) Schizophrenia: Qualifiers: Schizophrenia type: undifferentiated schizophrenia Qualified Code(s): F20.3 - Undifferentiated schizophrenia Status: Acute Code(s): F20.9 - Schizophrenia, unspecified Plan The patient is an elderly female with a past history of schizophrenia, with several services provided by [facility] with the court order to follow treatment, guardianship and other ancillary services who had been noncompliant with treatment. She is grossly disorganized paranoid, unable to provide any details. At this moment we will try to continue treatment. Plan 1. Gather collateral information. We will try to contact the guardian and the court order monitor for treatment over objection. 2. Restart Zyprexa as per med reconciliation form. 3. Continue with nifedipine and other medications for blood pressure. 4. Blood work and EKG. 5. Reassessment with results. 6. 5 minutes checks for safety. 7. We will get the legal court order for treatment over objection and reinforced it with IM. We have just added the backup p.r.n. IM Zyprexa as per court order. We change the Zyprexa to Zyprexa Zydis to assure compliance on September 11. Reason for continued inpatient stay Substantial Risk for: inability to function, rapid decompensation and med/psych decompensation Time Spent With Patient Time: Total time managing care of this patient today __20__ minutes.
[2024-09-25 19:22] VITALS: BP 145/85; PULSE 88; TEMP 36.4; O2SAT 97
[2024-09-25] MEDS: OLANZapine ODT 10 MG TAB.RAPDIS 20 MG TRANSLINGU (20:18)
[2024-09-26] MEDS: OLANZapine ODT 10 MG TAB.RAPDIS 5 MG TRANSLINGU (09:16)
--- NOTE | 2024-09-26 19:05 | P.PNPSI_ITS ---
Subjective Subjective Date of Service: 09/26/24 Reason For Visit: psychosis Subjective Notes: Section 8 Interim History: pt flat withdrawn PI cooperative with olanzapine Mental Status Exam Mental Status Exam Patient Appearance: Appropriate Patient Orientation: Person and Situation Level of Consciousness: Awake and Appropriate Patient Behavior: Guarded and Passive Mood Description: Withdrawn Affect Description: Constricted Patient Cognition Impaired: Yes Ability to Follow Directions: Good Speech Pattern: Clear Hallucinations: None Delusions: Paranoid Ideation and Ideas of Reference Thought Process: Distracted and Slowed Thinking Thought Content: positive for [place] and positive for Poverty of Content Judgement: Fair Judgement and Insight: minimally engaged when seen withdrawn Diagnostics Vital Signs (24Hr): Vital Signs - 24 hr 09/25/24 19:22 Temperature 97.5 F Pulse Rate 88 Blood Pressure 145/85 H Pulse Oximetry 97 Oxygen Delivery Method Room Air BMI result Body Mass Index 34.4 Medications Medications Current Medications Acetaminophen (Acetaminophen 325 Mg Tablet) 650 mg PO Q6H PRN PRN Reason: Headache/Pain Mild Scale (1-3) Last Admin: 09/22/24 03:22 Dose: 650 mg Al Hydroxide/Mg Hydroxide (Magnesium Hydrox/Alum Hydrox 30 Ml Oral.Susp) 30 ml PO Q6H PRN PRN Reason: Heartburn/Nausea Artificial Tears (Artificial Tears 15 Ml Drops) 2 drop EYE-BOTH Q4H PRN PRN Reason: Dry Eyes Last Admin: 09/23/24 20:53 Dose: 2 drop Divalproex Sodium (Divalproex Sodium 250 Mg Tablet.Dr) 250 mg PO BEDTIME [facility] Last Admin: 09/25/24 20:21 Dose: Not Given Docusate Sodium (Docusate Sodium 100 Mg Capsule) 100 mg PO DAILY PRN PRN Reason: constipation Hydroxyzine HCl (Hydroxyzine Hcl 25 Mg Tablet) 25 mg PO Q6H PRN PRN Reason: Anxiety Last Admin: 09/20/24 03:04 Dose: 25 mg Magnesium Hydroxide (Milk Of Magnesia 30 Ml Oral.Susp) 30 ml PO DAILY PRN PRN Reason: Constipation Nifedipine (Nifedipine Er 60 Mg Tab.Er.24) 60 mg PO DAILY [facility] Last Admin: 09/26/24 09:21 Dose: Not Given Olanzapine (Olanzapine 10 Mg Vial) 5 mg IM DAILY PRN PRN Reason: Refusal PO Last Admin: 09/16/24 09:19 Dose: 5 mg Olanzapine (Olanzapine Odt 10 Mg Tab.Rapdis) 5 mg TRANSLINGU DAILY [facility] Last Admin: 09/26/24 09:16 Dose: 5 mg Olanzapine (Olanzapine Odt 10 Mg Tab.Rapdis) 20 mg TRANSLINGU BEDTIME [facility] Last Admin: 09/25/24 20:18 Dose: 20 mg Olanzapine (Olanzapine 10 Mg Vial) 20 mg IM BEDTIME PRN PRN Reason: Refusal PO Omeprazole (Omeprazole 20 Mg Capsule.Dr) 20 mg PO DAILY@0630 [facility] Last Admin: 09/26/24 06:23 Dose: Not Given Trazodone HCl (Trazodone Hcl 50 Mg Tablet) 50 mg PO BEDTIME MRX1 PRN PRN Reason: Insomnia Last Admin: 09/08/24 20:15 Dose: 50 mg Allergies Allergies Allergy/AdvReac Type Severity Reaction Status Date / Time blueberry [Blueberry] Allergy Severe SWELLING Verified 09/04/24 12:35 lisinopril Allergy Intermediate cough Verified 09/04/24 12:35 mushroom Allergy Intermediate SWELLING Verified 09/04/24 12:35 shellfish derived Allergy Unknown UNKNOWN Verified 09/04/24 12:35 [SHELLFISH DERIVED] thioridazine Allergy Unknown Unknown Verified 09/04/24 12:35 tomato [TOMATO] Allergy Unknown UNKNOWN Verified 09/04/24 12:35 CHOCOLATE Allergy Intermediate ITCHING Uncoded 09/04/24 12:35 From MELLARIL Allergy Intermediate SHORTNESS Uncoded 09/04/24 12:35 OF BREATH From THORAZINE Allergy Intermediate SHORTNESS Uncoded 09/04/24 12:35 OF BREATH Assessment & Plan Assessment & Plan (1) Schizophrenia: Qualifiers: Schizophrenia type: undifferentiated schizophrenia Qualified Code(s): F20.3 - Undifferentiated schizophrenia Status: Acute Code(s): F20.9 - Schizophrenia, unspecified Plan The patient is an elderly female with a past history of schi zophrenia, with several services provided by [facility] with the court order to follow treatment, guardianship and other ancillary services who had been noncompliant with treatment. She is grossly disorganized paranoid, unable to provide any details. At this moment we will try to continue treatment. Plan 1. Gather collateral information. We will try to contact the guardian and the court order monitor for treatment over objection. 2. Restart Zyprexa as per med reconciliation form. 3. Continue with nifedipine and other medications for blood pressure. 4. Blood work and EKG. 5. Reassessment with results. 6. 5 minutes checks for safety. 7. We will get the legal court order for treatment over objection and reinforced it with IM. We have just added the backup p.r.n. IM Zyprexa as per court order. We change the Zyprexa to Zyprexa Zydis to assure compliance on September 11. 09/26/23 Cont olanzapine encourage oob Reason for continued inpatient stay Substantial Risk for: inability to function and rapid decompensation Time Spent With Patient Time: Total time managing care of this patient today ____ minutes.
[2024-09-26] MEDS: OLANZapine ODT 10 MG TAB.RAPDIS 20 MG TRANSLINGU (19:50)
[2024-09-26] MEDS: Artificial Tears 15 ML DROPS 2 DROP EYE-BOTH (19:50)
[2024-09-26 20:00] VITALS: RESP 16
[2024-09-27] MEDS: OLANZapine ODT 10 MG TAB.RAPDIS 5 MG TRANSLINGU (09:29)
[2024-09-27] MEDS: OLANZapine ODT 10 MG TAB.RAPDIS 20 MG TRANSLINGU (19:59)
[2024-09-27] MEDS: Artificial Tears 15 ML DROPS 2 DROP EYE-BOTH (19:59)
[2024-09-27] MEDS: Divalproex Sodium 250 MG TABLET.DR PO (19:59)
[2024-09-27 20:00] VITALS: RESP 18
--- NOTE | 2024-09-27 21:41 | P.PNPSI_ITS ---
Subjective Subjective Date of Service: 09/27/24 Reason For Visit: psychosis Subjective Notes: Section 8 Interim History: Patient cooperative with treatment order asking to be discharged mostly in bed at times somewhat pressured. Patient takes olanzapine at bedtime has not wanted take the Procardia Attending Groups: No Review of Systems Acute medical concerns: No Mental Status Exam Mental Status Exam Patient Appearance: Appropriate Patient Orientation: Person, Place and Situation Level of Consciousness: Awake and Appropriate Patient Behavior: Guarded, Passive and Suspicious Mood Description: Withdrawn Affect Description: Constricted and Blunted Patient Cognition Impaired: Yes Ability to Follow Directions: Good Speech Pattern: Slurred Hallucinations: None Delusions: Paranoid Ideation and Ideas of Reference Thought Process: Distracted and Slowed Thinking Thought Content: positive for [place] and positive for Poverty of Content Judgement: Fair Judgement and Insight: Patient focused on discharge suspicious regarding the color of the Procardia she has been given Diagnostics Vital Signs (24Hr): Vital Signs - 24 hr 09/27/24 20:00 Respiratory Rate 18 BMI result Body Mass Index 34.4 Medications Medications Current Medications Acetaminophen (Acetaminophen 325 Mg Tablet) 650 mg PO Q6H PRN PRN Reason: Headache/Pain Mild Scale (1-3) Last Admin: 09/22/24 03:22 Dose: 650 mg Al Hydroxide/Mg Hydroxide (Magnesium Hydrox/Alum Hydrox 30 Ml Oral.Susp) 30 ml PO Q6H PRN PRN Reason: Heartburn/Nausea Artificial Tears (Artificial Tears 15 Ml Drops) 2 drop EYE-BOTH Q4H PRN PRN Reason: Dry Eyes Last Admin: 09/27/24 19:59 Dose: 2 drop Divalproex Sodium (Divalproex Sodium 250 Mg Tablet.) 250 mg PO BEDTIME [facility] Last Admin: 09/27/24 19:59 Dose: 250 mg Docusate Sodium (Docusate Sodium 100 Mg Capsule) 100 mg PO DAILY PRN PRN Reason: constipation Hydroxyzine HCl (Hydroxyzine Hcl 25 Mg Tablet) 25 mg PO Q6H PRN PRN Reason: Anxiety Last Admin: 09/20/24 03:04 Dose: 25 mg Magnesium Hydroxide (Milk Of Magnesia 30 Ml Oral.Susp) 30 ml PO DAILY PRN PRN Reason: Constipation Nifedipine (Nifedipine Er 60 Mg Tab.Er.24) 60 mg PO DAILY [facility] Last Admin: 09/27/24 09:31 Dose: Not Given Olanzapine (Olanzapine 10 Mg Vial) 5 mg IM DAILY PRN PRN Reason: Refusal PO Last Admin: 09/16/24 09:19 Dose: 5 mg Olanzapine (Olanzapine Odt 10 Mg Tab.Rapdis) 5 mg TRANSLINGU DAILY [facility] Last Admin: 09/27/24 09:29 Dose: 5 mg Olanzapine (Olanzapine Odt 10 Mg Tab.Rapdis) 20 mg TRANSLINGU BEDTIME [facility] Last Admin: 09/27/24 19:59 Dose: 20 mg Olanzapine (Olanzapine 10 Mg Vial) 20 mg IM BEDTIME PRN PRN Reason: Refusal PO Omeprazole (Omeprazole 20 Mg Capsule.Dr) 20 mg PO DAILY@0630 [facility] Last Admin: 09/27/24 06:24 Dose: Not Given Trazodone HCl (Trazodone Hcl 50 Mg Tablet) 50 mg PO BEDTIME MRX1 PRN PRN Reason: Insomnia Last Admin: 09/08/24 20:15 Dose: 50 mg Allergies Allergies Allergy/AdvReac Type Severity Reaction Status Date / Time blueberry [Blueberry] Allergy Severe SWELLING Verified 09/04/24 12:35 lisinopril Allergy Intermediate cough Verified 09/04/24 12:35 mushroom Allergy Intermediate SWELLING Verified 09/04/24 12:35 shellfish derived Allergy Unknown UNKNOWN Verified 09/04/24 12:35 [SHELLFISH DERIVED] thioridazine Allergy Unknown Unknown Verified 09/04/24 12:35 tomato [TOMATO] Allergy Unknown UNKNOWN Verified 09/04/24 12:35 CHOCOLATE Allergy Intermediate ITCHING Uncoded 09/04/24 12:35 From MELLARIL Allergy Intermediate SHORTNESS Uncoded 09/04/24 12:35 OF BREATH From THORAZINE Allergy Intermediate SHORTNESS Uncoded 09/04/24 12:35 OF BREATH Assessment & Plan Assessment & Plan (1) Schizophrenia: Qualifiers: Schizophrenia type: undifferentiated schizophrenia Qualified Code(s): F20.3 - Undifferentiated schizophrenia Status: Acute Code(s): F20.9 - Schizophrenia, unspecified Plan The patient is an elderly female with a past history of schizophrenia, with several services provided by [facility] with the court order to follow treatment, guardianship and other ancillary services who had been noncompliant with treatment. She is grossly disorganized paranoid, unable to provide any details. At this moment we will try to continue treatment. Plan 1. Gather collateral information. We will try to contact the guardian and the court order monitor for treatment over objection. 2. Restart Zyprexa as per med reconciliation form. 3. Continue with nifedipine and other medications for blood pressure. 4. Blood work and EKG. 5. Reassessment with results. 6. 5 minutes checks for safety. 7. We will get the legal court order for treatment over objection and reinforced it with IM. We have just added the backup p.r.n. IM Zyprexa as per court order. We change the Zyprexa to Zyprexa Zydis to assure compliance on September 11. 09/26/24 Cont olanzapine encourage oob 09/27/24 Continue plan of care Patient educated on: diagnosis, medication risk/benefits and medical condition Informed Consent: does not understand Reason for continued inpatient stay Substantial Risk for: inability to function, rapid decompensation and med/psych decompensation Time Spent With Patient Time: Total time managing care of this patient today ____ minutes.
[2024-09-28 08:00] VITALS: BP 183/84; PULSE 82; RESP 20; TEMP 36.7; O2SAT 95
[2024-09-28] MEDS: NIFEdipine ER 60 MG TAB.ER.24 PO (08:53)
[2024-09-28] MEDS: OLANZapine ODT 10 MG TAB.RAPDIS 5 MG TRANSLINGU (08:54)
--- NOTE | 2024-09-28 15:06 | HO.PSYCHPN ---
Subjective Subjective Date of Service: 09/28/24 Reason For Visit: psychosis Subjective Notes: Conditional Voluntary Interim History: The nursing staff reported the patient had been compliant with treatment, she reported that she is ready to be discharged. The social organization professor reported near going to contact the alf so they can assess her. On interview the patient denies new symptoms. Mental Status Exam Mental Status Exam Patient Appearance: Appropriate and Unkempt Patient Orientation: Person and Situation Level of Consciousness: Awake and Appropriate Patient Behavior: Guarded Mood Description: Withdrawn Affect Description: Constricted Patient Cognition Impaired: Yes Ability to Follow Directions: Good Speech Pattern: Clear Hallucinations: None Delusions: Paranoid Ideation and Ideas of Reference Thought Process: Distracted and Slowed Thinking Thought Content: positive for [place] and positive for Poverty of Content Judgement: Poor Diagnostics Vital Signs (24Hr): Vital Signs - 24 hr 09/27/24 20:00 09/28/24 08:00 Temperature 98.1 F Pulse Rate 82 Respiratory Rate 18 20 Blood Pressure 183/84 H Pulse Oximetry 95 Oxygen Delivery Method Room Air BMI result Body Mass Index 34.4 Medications Medications Current Medications Acetaminophen (Acetaminophen 325 Mg Tablet) 650 mg PO Q6H PRN PRN Reason: Headache/Pain Mild Scale (1-3) Last Admin: 09/22/24 03:22 Dose: 650 mg Al Hydroxide/Mg Hydroxide (Magnesium Hydrox/Alum Hydrox 30 Ml Oral.Susp) 30 ml PO Q6H PRN PRN Reason: Heartburn/Nausea Artificial Tears (Artificial Tears 15 Ml Drops) 2 drop EYE-BOTH Q4H PRN PRN Reason: Dry Eyes Last Admin: 09/27/24 19:59 Dose: 2 drop Divalproex Sodium (Divalproex Sodium 250 Mg Tablet.Dr) 250 mg PO BEDTIME [facility] Last Admin: 09/27/24 19:59 Dose: 250 mg Docusate Sodium (Docusate Sodium 100 Mg Capsule) 100 mg PO DAILY PRN PRN Reason: constipation Hydroxyzine HCl (Hydroxyzine Hcl 25 Mg Tablet) 25 mg PO Q6H PRN PRN Reason: Anxiety Last Admin: 09/20/24 03:04 Dose: 25 mg Magnesium Hydroxide (Milk Of Magnesia 30 Ml Oral.Susp) 30 ml PO DAILY PRN PRN Reason: Constipation Nifedipine (Nifedipine Er 60 Mg Tab.Er.24) 60 mg PO DAILY [facility] Last Admin: 09/28/24 08:53 Dose: 60 mg Olanzapine (Olanzapine 10 Mg Vial) 5 mg IM DAILY PRN PRN Reason: Refusal PO Last Admin: 09/16/24 09:19 Dose: 5 mg Olanzapine (Olanzapine Odt 10 Mg Tab.Rapdis) 5 mg TRANSLINGU DAILY [facility] Last Admin: 09/28/24 08:54 Dose: 5 mg Olanzapine (Olanzapine Odt 10 Mg Tab.Rapdis) 20 mg TRANSLINGU BEDTIME [facility] Last Admin: 09/27/24 19:59 Dose: 20 mg Olanzapine (Olanzapine 10 Mg Vial) 20 mg IM BEDTIME PRN PRN Reason: Refusal PO Omeprazole (Omeprazole 20 Mg Capsule.Dr) 20 mg PO DAILY@0630 [facility] Last Admin: 09/28/24 06:03 Dose: Not Given Trazodone HCl (Trazodone Hcl 50 Mg Tablet) 50 mg PO BEDTIME MRX1 PRN PRN Reason: Insomnia Last Admin: 09/08/24 20:15 Dose: 50 mg Allergies Allergies Allergy/AdvReac Type Severity Reaction Status Date / Time blueberry [Blueberry] Allergy Severe SWELLING Verified 09/04/24 12:35 lisinopril Allergy Intermediate cough Verified 09/04/24 12:35 mushroom Allergy Intermediate SWELLING Verified 09/04/24 12:35 shellfish derived Allergy Unknown UNKNOWN Verified 09/04/24 12:35 [SHELLFISH DERIVED] thioridazine Allergy Unknown Unknown Verified 09/04/24 12:35 tomato [TOMATO] Allergy Unknown UNKNOWN Verified 09/04/24 12:35 CHOCOLATE Allergy Intermediate ITCHING Uncoded 09/04/24 12:35 From MELLARIL Allergy Intermediate SHORTNESS Uncoded 09/04/24 12:35 OF BREATH From THORAZINE Allergy Intermediate SHORTNESS Uncoded 09/04/24 12:35 OF BREATH Assessment & Plan Assessment & Plan (1) Schizophrenia: Qualifiers: Schizophrenia type: undifferentiated schizophrenia Qualified Code(s): F20.3 - Undifferentiated schizophrenia Status: Acute Code(s): F20.9 - Schizophrenia, unspecified Plan The patient is an elderly female with a past history of schizophrenia, with several services provided by [facility] with the court order to follow treatment, guardianship and other ancillary services who had been noncompliant with treatment. She is grossly disorganized paranoid, unable to provide any details. At this moment we will try to continue treatment. Plan 1. Gather collateral information. We will try to contact the guardian and the court order monitor for treatment over objection. 2. Restart Zyprexa as per med reconciliation form. 3. Continue with nifedipine and other medications for blood pressure. 4. Blood work and EKG. 5. Reassessment with results. 6. 5 minutes checks for safety. 7. We will get the legal court order for treatment over objection and reinforced it with IM. We have just added the backup p.r.n. IM Zyprexa as per court order. We change the Zyprexa to Zyprexa Zydis to assure compliance on September 11. 8. We will try to get staff from the skilled nursing to reassess her now that she is compliant with treatment. Reason for continued inpatient stay Substantial Risk for: inability to function, rapid decompensation and med/psych decompensation Time Spent With Patient Time: Total time managing care of this patient today __20__ minutes.
[2024-09-28] MEDS: Divalproex Sodium 250 MG TABLET.DR PO (20:08)
[2024-09-28] MEDS: OLANZapine ODT 10 MG TAB.RAPDIS 20 MG TRANSLINGU (20:08)
[2024-09-28] MEDS: Artificial Tears 15 ML DROPS 2 DROP EYE-BOTH (20:09)
[2024-09-29] MEDS: Omeprazole 20 MG CAPSULE.DR PO (06:12)
[2024-09-29 08:00] VITALS: BP 192/91; PULSE 87; RESP 18; TEMP 36; O2SAT 95
[2024-09-29] MEDS: Artificial Tears 15 ML DROPS 2 DROP EYE-BOTH ×2 (08:38→20:34)
[2024-09-29] MEDS: OLANZapine ODT 10 MG TAB.RAPDIS 5 MG TRANSLINGU (09:30)
[2024-09-29 09:33] VITALS: BP 192/91
[2024-09-29] MEDS: NIFEdipine ER 60 MG TAB.ER.24 PO (09:33)
--- NOTE | 2024-09-29 16:28 | HO.PSYCHPN ---
Subjective Subjective Date of Service: 09/29/24 Reason For Visit: psychosis Subjective Notes: Conditional Voluntary Interim History: The nursing staff reported the patient to her medications in the morning she tried to refused her olanzapine and we remind her that we will enforce the role years so she took all her medications. The transition social worker will contact a [facility] so they can assess her. On interview the patient denies new symptoms still chronically psychotic but more redirectable. Mental Status Exam Mental Status Exam Patient Appearance: Appropriate Patient Orientation: Person and Situation Level of Consciousness: Awake and Appropriate Patient Behavior: Guarded and Passive Mood Description: Withdrawn Affect Description: Constricted Patient Cognition Impaired: Yes Ability to Follow Directions: Good Speech Pattern: Clear Hallucinations: Auditory Delusions: Paranoid Ideation and Ideas of Reference Thought Process: Distracted and Slowed Thinking Thought Content: positive for [place] and positive for Poverty of Content Judgement: Fair Diagnostics Vital Signs (24Hr): Vital Signs - 24 hr 09/29/24 08:00 09/29/24 09:33 Temperature 96.8 F Pulse Rate 87 Respiratory Rate 18 Blood Pressure 192/91 H 192/91 H Pulse Oximetry 95 Oxygen Delivery Method Room Air BMI result Body Mass Index 34.4 Medications Medications Current Medications Acetaminophen (Acetaminophen 325 Mg Tablet) 650 mg PO Q6H PRN PRN Reason: Headache/Pain Mild Scale (1-3) Last Admin: 09/22/24 03:22 Dose: 650 mg Al Hydroxide/Mg Hydroxide (Magnesium Hydrox/Alum Hydrox 30 Ml Oral.Susp) 30 ml PO Q6H PRN PRN Reason: Heartburn/Nausea Artificial Tears (Artificial Tears 15 Ml Drops) 2 drop EYE-BOTH Q4H PRN PRN Reason: Dry Eyes Last Admin: 09/29/24 08:38 Dose: 2 drop Divalproex Sodium (Divalproex Sodium 250 Mg Tablet.Dr) 250 mg PO BEDTIME EDIN Last Admin: 09/28/24 20:08 Dose: 250 mg Docusate Sodium (Docusate Sodium 100 Mg Capsule) 100 mg PO DAILY PRN PRN Reason: constipation Hydroxyzine HCl (Hydroxyzine Hcl 25 Mg Tablet) 25 mg PO Q6H PRN PRN Reason: Anxiety Last Admin: 09/20/24 03:04 Dose: 25 mg Magnesium Hydroxide (Milk Of Magnesia 30 Ml Oral.Susp) 30 ml PO DAILY PRN PRN Reason: Constipation Nifedipine (Nifedipine Er 60 Mg Tab.Er.24) 60 mg PO DAILY [facility] Last Admin: 09/29/24 09:33 Dose: 60 mg Olanzapine (Olanzapine 10 Mg Vial) 5 mg IM DAILY PRN PRN Reason: Refusal PO Last Admin: 09/16/24 09:19 Dose: 5 mg Olanzapine (Olanzapine Odt 10 Mg Tab.Rapdis) 5 mg TRANSLINGU DAILY [facility] Last Admin: 09/29/24 09:30 Dose: 5 mg Olanzapine (Olanzapine Odt 10 Mg Tab.Rapdis) 20 mg TRANSLINGU BEDTIME [facility] Last Admin: 09/28/24 20:08 Dose: 20 mg Olanzapine (Olanzapine 10 Mg Vial) 20 mg IM BEDTIME PRN PRN Reason: Refusal PO Omeprazole (Omeprazole 20 Mg Capsule.Dr) 20 mg PO DAILY@0630 [facility] Last Admin: 09/29/24 06:12 Dose: 20 mg Trazodone HCl (Trazodone Hcl 50 Mg Tablet) 50 mg PO BEDTIME MRX1 PRN PRN Reason: Insomnia Last Admin: 09/08/24 20:15 Dose: 50 mg Allergies Allergies Allergy/AdvReac Type Severity Reaction Status Date / Time blueberry [Blueberry] Allergy Severe SWELLING Verified 09/04/24 12:35 lisinopril Allergy Intermediate cough Verified 09/04/24 12:35 mushroom Allergy Intermediate SWELLING Verified 09/04/24 12:35 shellfish derived Allergy Unknown UNKNOWN Verified 09/04/24 12:35 [SHELLFISH DERIVED] thioridazine Allergy Unknown Unknown Verified 09/04/24 12:35 tomato [TOMATO] Allergy Unknown UNKNOWN Verified 09/04/24 12:35 CHOCOLATE Allergy Intermediate ITCHING Uncoded 09/04/24 12:35 From MELLARIL Allergy Intermediate SHORTNESS Uncoded 09/04/24 12:35 OF BREATH From THORAZINE Allergy Intermediate SHORTNESS Uncoded 09/04/24 12:35 OF BREATH Assessment & Plan Assessment & Plan (1) Schizophrenia: Qualifiers: Schizophrenia type: undifferentiated schizophrenia Qualified Code(s): F20.3 - Undifferentiated schizophrenia Status: Acute Code(s): F20.9 - Schizophrenia, unspecified Plan The patient is an elderly female with a past history of schizophrenia, with several services provided by [facility] with the court order to follow treatment, guardianship and other ancillary services who had been noncompliant with treatment. She is grossly disorganized paranoid, unable to provide any details. At this moment we will try to continue treatment. Plan 1. Gather collateral information. We will try to contact the guardian and the court order monitor for treatment over objection. 2. Restart Zyprexa as per med reconciliation form. 3. Continue with nifedipine and other medications for blood pressure. 4. Blood work and EKG. 5. Reassessment with results. 6. 5 minutes checks for safety. 7. We will get the legal court order for treatment over objection and reinforced it with IM. We have just added the backup p.r.n. IM Zyprexa as per court order. We change the Zyprexa to Zyprexa Zydis to assure compliance on September 11. 8. We will try to get staff from the custodial to reassess her now that she is compliant with treatment. Reason for continued inpatient stay Substantial Risk for: inability to function, rapid decompensation and med/psych decompensation Time Spent With Patient Time: Total time managing care of this patient today __20__ minutes.
[2024-09-29] MEDS: Divalproex Sodium 250 MG TABLET.DR PO (20:34)
[2024-09-29] MEDS: OLANZapine ODT 10 MG TAB.RAPDIS 20 MG TRANSLINGU (20:34)
[2024-09-30] MEDS: Omeprazole 20 MG CAPSULE.DR PO (05:04)
[2024-09-30] MEDS: OLANZapine ODT 10 MG TAB.RAPDIS 5 MG TRANSLINGU (08:15)
[2024-09-30] MEDS: NIFEdipine ER 60 MG TAB.ER.24 PO (08:15)
--- NOTE | 2024-09-30 16:01 | P.PNPSI_ITS ---
Subjective Subjective Date of Service: 09/30/24 Reason For Visit: psychosis Subjective Notes: Conditional Voluntary Interim History: The nursing staff reported the patient had been compliant with medications. Seclusive, internally preoccupied. On interview the patient asked for her discharge, we are going to coordinate with the [facility] team. Mental Status Exam Mental Status Exam Patient Appearance: Well Grooomed Patient Orientation: Person and Situation Level of Consciousness: Awake and Appropriate Patient Behavior: Guarded and Passive Mood Description: Withdrawn Affect Description: Constricted Patient Cognition Impaired: Yes Ability to Follow Directions: Good Speech Pattern: Clear Hallucinations: None Delusions: Paranoid Ideation and Ideas of Reference Thought Process: Distracted and Slowed Thinking Thought Content: positive for [place] and positive for Poverty of Content Judgement: Fair Diagnostics Vital Signs (24Hr): BMI result Body Mass Index 34.4 Medications Medications Current Medications Acetaminophen (Acetaminophen 325 Mg Tablet) 650 mg PO Q6H PRN PRN Reason: Headache/Pain Mild Scale (1-3) Last Admin: 09/22/24 03:22 Dose: 650 mg Al Hydroxide/Mg Hydroxide (Magnesium Hydrox/Alum Hydrox 30 Ml Oral.Susp) 30 ml PO Q6H PRN PRN Reason: Heartburn/Nausea Artificial Tears (Artificial Tears 15 Ml Drops) 2 drop EYE-BOTH Q4H PRN PRN Reason: Dry Eyes Last Admin: 09/29/24 20:34 Dose: 2 drop Divalproex Sodium (Divalproex Sodium 250 Mg Tablet.Dr) 250 mg PO BEDTIME EDIN Last Admin: 09/29/24 20:34 Dose: 250 mg Docusate Sodium (Docusate Sodium 100 Mg Capsule) 100 mg PO DAILY PRN PRN Reason: constipation Hydroxyzine HCl (Hydroxyzine Hcl 25 Mg Tablet) 25 mg PO Q6H PRN PRN Reason: Anxiety Last Admin: 09/20/24 03:04 Dose: 25 mg Magnesium Hydroxide (Milk Of Magnesia 30 Ml Oral.Susp) 30 ml PO DAILY PRN PRN Reason: Constipation Nifedipine (Nifedipine Er 60 Mg Tab.Er.24) 60 mg PO DAILY [facility] Last Admin: 09/30/24 08:15 Dose: 60 mg Olanzapine (Olanzapine 10 Mg Vial) 5 mg IM DAILY PRN PRN Reason: Refusal PO Last Admin: 09/16/24 09:19 Dose: 5 mg Olanzapine (Olanzapine Odt 10 Mg Tab.Rapdis) 5 mg TRANSLINGU DAILY [facility] Last Admin: 09/30/24 08:15 Dose: 5 mg Olanzapine (Olanzapine Odt 10 Mg Tab.Rapdis) 20 mg TRANSLINGU BEDTIME [facility] Last Admin: 09/29/24 20:34 Dose: 20 mg Olanzapine (Olanzapine 10 Mg Vial) 20 mg IM BEDTIME PRN PRN Reason: Refusal PO Omeprazole (Omeprazole 20 Mg Capsule.Dr) 20 mg PO DAILY@0630 [facility] Last Admin: 09/30/24 05:04 Dose: 20 mg Trazodone HCl (Trazodone Hcl 50 Mg Tablet) 50 mg PO BEDTIME MRX1 PRN PRN Reason: Insomnia Last Admin: 09/08/24 20:15 Dose: 50 mg Allergies Allergies Allergy/AdvReac Type Severity Reaction Status Date / Time blueberry [Blueberry] Allergy Severe SWELLING Verified 09/04/24 12:35 lisinopril Allergy Intermediate cough Verified 09/04/24 12:35 mushroom Allergy Intermediate SWELLING Verified 09/04/24 12:35 shellfish derived Allergy Unknown UNKNOWN Verified 09/04/24 12:35 [SHELLFISH DERIVED] thioridazine Allergy Unknown Unknown Verified 09/04/24 12:35 tomato [TOMATO] Allergy Unknown UNKNOWN Verified 09/04/24 12:35 CHOCOLATE Allergy Intermediate ITCHING Uncoded 09/04/24 12:35 From MELLARIL Allergy Intermediate SHORTNESS Uncoded 09/04/24 12:35 OF BREATH From THORAZINE Allergy Intermediate SHORTNESS Uncoded 09/04/24 12:35 OF BREATH Assessment & Plan Assessment & Plan (1) Schizophrenia: Qualifiers: Schizophrenia type: undifferentiated schizophrenia Qualified Code(s): F20.3 - Undifferentiated schizophrenia Status: Acute Code(s): F20.9 - Schizophrenia, unspecified Plan The patient is an elderly female with a past history of schizophrenia, with several services provided by [facility] with the court order to follow treatment, guardianship and other ancillary services who had been noncompliant with treatment. She is grossly disorganized paranoid, unable to provide any details. At this moment we will try to continue treatment. Plan 1. Gather collateral information. We will try to contact the guardian and the court order monitor for treatment over objection. 2. Restart Zyprexa as per med reconciliation form. 3. Continue with nifedipine and other medications for blood pressure. 4. Blood work and EKG. 5. Reassessment with results. 6. 5 minutes checks for safety. 7. We will get the legal court order for treatment over objection and reinforced it with IM. We have just added the backup p.r.n. IM Zyprexa as per court order. We change the Zyprexa to Zyprexa Zydis to assure compliance on September 11. 8. We will try to get staff from the skilled nursing to reassess her now that she is compliant with treatment. Reason for continued inpatient stay Substantial Risk for: inability to function, rapid decompensation and med/psych decompensation Time Spent With Patient Time: Total time managing care of this patient today __20__ minutes.
[2024-09-30 20:00] VITALS: RESP 16
[2024-09-30] MEDS: OLANZapine ODT 10 MG TAB.RAPDIS 20 MG TRANSLINGU (20:39)
[2024-09-30] MEDS: Artificial Tears 15 ML DROPS 2 DROP EYE-BOTH (20:39)
[2024-10-01 08:34] VITALS: BP 183/103; PULSE 92; RESP 18; TEMP 36.3; O2SAT 95
[2024-10-01 10:33] VITALS: BP 187/89
[2024-10-01] MEDS: NIFEdipine ER 60 MG TAB.ER.24 PO (10:33)
[2024-10-01] MEDS: OLANZapine ODT 10 MG TAB.RAPDIS 5 MG TRANSLINGU (10:34)
[2024-10-01] MEDS: Artificial Tears 15 ML DROPS 2 DROP EYE-BOTH (10:36)
[2024-10-01 15:21] VITALS: BMI 29.5
--- NOTE | 2024-10-01 15:52 | HO.PSYCHPN ---
Subjective Subjective Date of Service: 10/01/24 Reason For Visit: psychosis Subjective Notes: Conditional Voluntary Healthcare Proxy: Yes Guardianship: Yes Interim History: The nursing staff reported the patient took only Zyprexa since she is aware that it is scored order. She slept 7 hours. The social work lecturer reported that she contact her outpatient team and they will meet her soon. On interview the patient denies new symptoms she wants to go back home Mental Status Exam Mental Status Exam Patient Appearance: Appropriate Patient Orientation: Person and Situation Level of Consciousness: Awake Patient Behavior: Guarded and Passive Mood Description: Withdrawn Affect Description: Constricted Patient Cognition Impaired: Yes Ability to Follow Directions: Good Speech Pattern: Poor Articulation Hallucinations: None Delusions: Paranoid Ideation and Ideas of Reference Thought Process: Distracted and Slowed Thinking Thought Content: positive for [place] and positive for Poverty of Content Judgement: Fair Diagnostics Vital Signs (24Hr): Vital Signs - 24 hr 09/30/24 20:00 10/01/24 08:34 10/01/24 10:33 Temperature 97.3 F Pulse Rate 92 Respiratory Rate 16 18 Blood Pressure 183/103 H 187/89 H Pulse Oximetry 95 Oxygen Delivery Method Room Air BMI result Body Mass Index 29.5 Medications Medications Current Medications Acetaminophen (Acetaminophen 325 Mg Tablet) 650 mg PO Q6H PRN PRN Reason: Headache/Pain Mild Scale (1-3) Last Admin: 09/22/24 03:22 Dose: 650 mg Al Hydroxide/Mg Hydroxide (Magnesium Hydrox/Alum Hydrox 30 Ml Oral.Susp) 30 ml PO Q6H PRN PRN Reason: Heartburn/Nausea Artificial Tears (Artificial Tears 15 Ml Drops) 2 drop EYE-BOTH Q4H PRN PRN Reason: Dry Eyes Last Admin: 10/01/24 10:36 Dose: 2 drop Divalproex Sodium (Divalproex Sodium 250 Mg Tablet.Dr) 250 mg PO BEDTIME EDIN Last Admin: 09/30/24 20:39 Dose: Not Given Docusate Sodium (Docusate Sodium 100 Mg Capsule) 100 mg PO DAILY PRN PRN Reason: constipation Hydroxyzine HCl (Hydroxyzine Hcl 25 Mg Tablet) 25 mg PO Q6H PRN PRN Reason: Anxiety Last Admin: 09/20/24 03:04 Dose: 25 mg Magnesium Hydroxide (Milk Of Magnesia 30 Ml Oral.Susp) 30 ml PO DAILY PRN PRN Reason: Constipation Nifedipine (Nifedipine Er 60 Mg Tab.Er.24) 60 mg PO DAILY [facility] Last Admin: 10/01/24 10:33 Dose: 60 mg Olanzapine (Olanzapine 10 Mg Vial) 5 mg IM DAILY PRN PRN Reason: Refusal PO Last Admin: 09/16/24 09:19 Dose: 5 mg Olanzapine (Olanzapine Odt 10 Mg Tab.Rapdis) 5 mg TRANSLINGU DAILY [facility] Last Admin: 10/01/24 10:34 Dose: 5 mg Olanzapine (Olanzapine Odt 10 Mg Tab.Rapdis) 20 mg TRANSLINGU BEDTIME [facility] Last Admin: 09/30/24 20:39 Dose: 20 mg Olanzapine (Olanzapine 10 Mg Vial) 20 mg IM BEDTIME PRN PRN Reason: Refusal PO Omeprazole (Omeprazole 20 Mg Capsule.Dr) 20 mg PO DAILY@0630 [facility] Last Admin: 10/01/24 06:25 Dose: Not Given Trazodone HCl (Trazodone Hcl 50 Mg Tablet) 50 mg PO BEDTIME MRX1 PRN PRN Reason: Insomnia Last Admin: 09/08/24 20:15 Dose: 50 mg Allergies Allergies Allergy/AdvReac Type Severity Reaction Status Date / Time blueberry [Blueberry] Allergy Severe SWELLING Verified 09/04/24 12:35 lisinopril Allergy Intermediate cough Verified 09/04/24 12:35 mushroom Allergy Intermediate SWELLING Verified 09/04/24 12:35 shellfish derived Allergy Unknown UNKNOWN Verified 09/04/24 12:35 [SHELLFISH DERIVED] thioridazine Allergy Unknown Unknown Verified 09/04/24 12:35 tomato [TOMATO] Allergy Unknown UNKNOWN Verified 09/04/24 12:35 CHOCOLATE Allergy Intermediate ITCHING Uncoded 09/04/24 12:35 From MELLARIL Allergy Intermediate SHORTNESS Uncoded 09/04/24 12:35 OF BREATH From THORAZINE Allergy Intermediate SHORTNESS Uncoded 09/04/24 12:35 OF BREATH Assessment & Plan Assessment & Plan (1) Schizophrenia: Qualifiers: Schizophrenia type: undifferentiated schizophrenia Qualified Code(s): F20.3 - Undifferentiated schizophrenia Status: Acute Code(s): F20.9 - Schizophrenia, unspecified Plan The patient is an elderly female with a past history of schizophrenia, with several services provided by [facility] with the court order to follow treatment, guardianship and other ancillary services who had been noncompliant with treatment. She is grossly disorganized paranoid, unable to provide any details. At this moment we will try to continue treatment. Plan 1. Gather collateral information. We will try to contact the guardian and the court order monitor for treatment over objection. 2. Restart Zyprexa as per med reconciliation form. 3. Continue with nifedipine and other medications for blood pressure. 4. Blood work and EKG. 5. Reassessment with results. 6. 5 minutes checks for safety. 7. We will get the legal court order for treatment over objection and reinforced it with IM. We have just added the backup p.r.n. IM Zyprexa as per court order. We change the Zyprexa to Zyprexa Zydis to assure compliance on September 11. 8. We will try to get staff from the assisted to reassess her now that she is compliant with treatment. Reason for continued inpatient stay Substantial Risk for: inability to function, rapid decompensation and med/psych decompensation Time Spent With Patient Time: Total time managing care of this patient today __20__ minutes.
[2024-10-01 20:00] VITALS: RESP 16
[2024-10-01] MEDS: OLANZapine ODT 10 MG TAB.RAPDIS 20 MG TRANSLINGU (21:15)
[2024-10-02] MEDS: Artificial Tears 15 ML DROPS 2 DROP EYE-BOTH ×2 (09:01→20:33)
[2024-10-02] MEDS: OLANZapine ODT 10 MG TAB.RAPDIS 5 MG TRANSLINGU (09:02)
[2024-10-02] MEDS: Omeprazole 20 MG CAPSULE.DR PO (09:04)
--- NOTE | 2024-10-02 10:55 | HO.PSYCHPN ---
Subjective Subjective Date of Service: 10/02/24 Reason For Visit: psychosis Subjective Notes: Conditional Voluntary Interim History: Pt slept all night. Would refuse medications, unless reminded she has kev's. 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 Pt reminded dc is not due to but Saturday. No behavioral concerns. VS stable. Medication Compliance: Yes Review of Systems Review of Systems Yes all other systems are reviewed and are negative, Unobtainable due to mental status and Other (patient refused to participate in ROS) Psychiatric: Reports paranoia Mental Status Exam Mental Status Exam Narrative: Pt with improved hygiene, casually groomed, in NAD Patient Appearance: Appropriate Patient Orientation: Person and Situation Level of Consciousness: Awake Patient Behavior: Guarded and Passive Mood Description: Withdrawn Affect Description: Constricted Patient Cognition Impaired: Yes Ability to Follow Directions: Good Speech Pattern: Poor Articulation Diagnostics Vital Signs (24Hr): Vital Signs - 24 hr 10/01/24 20:00 Respiratory Rate 16 BMI result Body Mass Index 29.5 Medications Medications Current Medications Acetaminophen (Acetaminophen 325 Mg Tablet) 650 mg PO Q6H PRN PRN Reason: Headache/Pain Mild Scale (1-3) Last Admin: 09/22/24 03:22 Dose: 650 mg Al Hydroxide/Mg Hydroxide (Magnesium Hydrox/Alum Hydrox 30 Ml Oral.Susp) 30 ml PO Q6H PRN PRN Reason: Heartburn/Nausea Artificial Tears (Artificial Tears 15 Ml Drops) 2 drop EYE-BOTH Q4H PRN PRN Reason: Dry Eyes Last Admin: 10/02/24 09:01 Dose: 2 drop Divalproex Sodium (Divalproex Sodium 250 Mg Tablet.Dr) 250 mg PO BEDTIME [facility] Last Admin: 10/01/24 22:05 Dose: Not Given Docusate Sodium (Docusate Sodium 100 Mg Capsule) 100 mg PO DAILY PRN PRN Reason: constipation Hydroxyzine HCl (Hydroxyzine Hcl 25 Mg Tablet) 25 mg PO Q6H PRN PRN Reason: Anxiety Last Admin: 09/20/24 03:04 Dose: 25 mg Magnesium Hydroxide (Milk Of Magnesia 30 Ml Oral.Susp) 30 ml PO DAILY PRN PRN Reason: Constipation Nifedipine (Nifedipine Er 60 Mg Tab.Er.24) 60 mg PO DAILY [facility] Last Admin: 10/02/24 10:33 Dose: Not Given Olanzapine (Olanzapine 10 Mg Vial) 5 mg IM DAILY PRN PRN Reason: Refusal PO Last Admin: 09/16/24 09:19 Dose: 5 mg Olanzapine (Olanzapine Odt 10 Mg Tab.Rapdis) 5 mg TRANSLINGU DAILY [facility] Last Admin: 10/02/24 09:02 Dose: 5 mg Olanzapine (Olanzapine Odt 10 Mg Tab.Rapdis) 20 mg TRANSLINGU BEDTIME [facility] Last Admin: 10/01/24 21:15 Dose: 20 mg Olanzapine (Olanzapine 10 Mg Vial) 20 mg IM BEDTIME PRN PRN Reason: Refusal PO Omeprazole (Omeprazole 20 Mg Capsule.Dr) 20 mg PO DAILY@0630 [facility] Last Admin: 10/02/24 09:04 Dose: 20 mg Trazodone HCl (Trazodone Hcl 50 Mg Tablet) 50 mg PO BEDTIME MRX1 PRN PRN Reason: Insomnia Last Admin: 09/08/24 20:15 Dose: 50 mg Allergies Allergies Allergy/AdvReac Type Severity Reaction Status Date / Time blueberry [Blueberry] Allergy Severe SWELLING Verified 09/04/24 12:35 lisinopril Allergy Intermediate cough Verified 09/04/24 12:35 mushroom Allergy Intermediate SWELLING Verified 09/04/24 12:35 shellfish derived Allergy Unknown UNKNOWN Verified 09/04/24 12:35 [SHELLFISH DERIVED] thioridazine Allergy Unknown Unknown Verified 09/04/24 12:35 tomato [TOMATO] Allergy Unknown UNKNOWN Verified 09/04/24 12:35 CHOCOLATE Allergy Intermediate ITCHING Uncoded 09/04/24 12:35 From MELLARIL Allergy Intermediate SHORTNESS Uncoded 09/04/24 12:35 OF BREATH From THORAZINE Allergy Intermediate SHORTNESS Uncoded 09/04/24 12:35 OF BREATH Assessment & Plan Assessment & Plan (1) Schizophrenia: Qualifiers: Schizophrenia type: undifferentiated schizophrenia Qualified Code(s): F20.3 - Undifferentiated schizophrenia Status: Acute Code(s): F20.9 - Schizophrenia, unspecified Plan The patient is an elderly female with a past history of schizophrenia, with several services provided by [facility] with the court order to follow treatment, guardianship and other ancillary services who had been noncompliant with treatment. She is grossly disorganized paranoid, unable to provide any details. At this moment we will try to continue treatment. Plan 2/7 continue current medications. back IM if refuses oral antipsychotic per court order. Reason for continued inpatient stay Substantial Risk for: inability to function Time Spent With Patient Time: Total time managing care of this patient today ____ minutes.
[2024-10-02 19:36] VITALS: BP 129/61; PULSE 86; RESP 14; TEMP 37; O2SAT 93
[2024-10-02] MEDS: OLANZapine ODT 10 MG TAB.RAPDIS 20 MG TRANSLINGU (20:34)
[2024-10-02] MEDS: Divalproex Sodium 250 MG TABLET.DR PO (20:34)
[2024-10-03] MEDS: Omeprazole 20 MG CAPSULE.DR PO (06:18)
--- NOTE | 2024-10-03 08:32 | HO.PSYCHPN ---
Subjective Subjective Date of Service: 10/03/24 Reason For Visit: psychosis Subjective Notes: Section 7 and Section 8 Interim History: 74 yo AAF lying in bed, cooperative with interview- says she is fine now- back on medications- focused on her bp and recent headache- though nursing says she is intermittently refusing bp meds and taking fried meds seems better on her psych meds- they are following bps Medication Compliance: Intermittent Side effects from medications: No Attending Groups: No Review of Systems Acute medical concerns: No Medical Review of Systems: unchanged Mental Status Exam Mental Status Exam Patient Appearance: Appropriate Patient Orientation: Person and Place Level of Consciousness: Awake Patient Behavior: Appropriate Mood Description: Calm Affect Description: Blunted Ability to Follow Directions: Fair Speech Pattern: Clear Thought Process: Intact Thought Content: positive for [place] and positive for [place] of Content Judgement: Poor Diagnostics Vital Signs (24Hr): Vital Signs - 24 hr 10/02/24 19:36 Temperature 98.6 F Pulse Rate 86 Respiratory Rate 14 Blood Pressure 129/61 Pulse Oximetry 93 Oxygen Delivery Method Room Air BMI result Body Mass Index 29.5 Medications Medications Current Medications Acetaminophen (Acetaminophen 325 Mg Tablet) 650 mg PO Q6H PRN PRN Reason: Headache/Pain Mild Scale (1-3) Last Admin: 09/22/24 03:22 Dose: 650 mg Al Hydroxide/Mg Hydroxide (Magnesium Hydrox/Alum Hydrox 30 Ml Oral.Susp) 30 ml PO Q6H PRN PRN Reason: Heartburn/Nausea Artificial Tears (Artificial Tears 15 Ml Drops) 2 drop EYE-BOTH Q4H PRN PRN Reason: Dry Eyes Last Admin: 10/02/24 20:33 Dose: 2 drop Divalproex Sodium (Divalproex Sodium 250 Mg Tablet.Dr) 250 mg PO BEDTIME [facility] Last Admin: 10/02/24 20:34 Dose: 250 mg Docusate Sodium (Docusate Sodium 100 Mg Capsule) 100 mg PO DAILY PRN PRN Reason: constipation Hydroxyzine HCl (Hydroxyzine Hcl 25 Mg Tablet) 25 mg PO Q6H PRN PRN Reason: Anxiety Last Admin: 09/20/24 03:04 Dose: 25 mg Magnesium Hydroxide (Milk Of Magnesia 30 Ml Oral.Susp) 30 ml PO DAILY PRN PRN Reason: Constipation Nifedipine (Nifedipine Er 60 Mg Tab.Er.24) 60 mg PO DAILY [facility] Last Admin: 10/02/24 10:33 Dose: Not Given Olanzapine (Olanzapine 10 Mg Vial) 5 mg IM DAILY PRN PRN Reason: Refusal PO Last Admin: 09/16/24 09:19 Dose: 5 mg Olanzapine (Olanzapine Odt 10 Mg Tab.Rapdis) 5 mg TRANSLINGU DAILY [facility] Last Admin: 10/02/24 09:02 Dose: 5 mg Olanzapine (Olanzapine Odt 10 Mg Tab.Rapdis) 20 mg TRANSLINGU BEDTIME [facility] Last Admin: 10/02/24 20:34 Dose: 20 mg Olanzapine (Olanzapine 10 Mg Vial) 20 mg IM BEDTIME PRN PRN Reason: Refusal PO Omeprazole (Omeprazole 20 Mg Capsule.Dr) 20 mg PO DAILY@0630 [facility] Last Admin: 10/03/24 06:18 Dose: 20 mg Trazodone HCl (Trazodone Hcl 50 Mg Tablet) 50 mg PO BEDTIME MRX1 PRN PRN Reason: Insomnia Last Admin: 09/08/24 20:15 Dose: 50 mg Allergies Allergies Allergy/AdvReac Type Severity Reaction Status Date / Time blueberry [Blueberry] Allergy Severe SWELLING Verified 09/04/24 12:35 lisinopril Allergy Intermediate cough Verified 09/04/24 12:35 mushroom Allergy Intermediate SWELLING Verified 09/04/24 12:35 shellfish derived Allergy Unknown UNKNOWN Verified 09/04/24 12:35 [SHELLFISH DERIVED] thioridazine Allergy Unknown Unknown Verified 09/04/24 12:35 tomato [TOMATO] Allergy Unknown UNKNOWN Verified 09/04/24 12:35 CHOCOLATE Allergy Intermediate ITCHING Uncoded 09/04/24 12:35 From MELLARIL Allergy Intermediate SHORTNESS Uncoded 09/04/24 12:35 OF BREATH From THORAZINE Allergy Intermediate SHORTNESS Uncoded 09/04/24 12:35 OF BREATH Assessment & Plan Assessment & Plan (1) Schizophrenia: Qualifiers: Schizophrenia type: undifferentiated schizophrenia Qualified Code(s): F20.3 - Undifferentiated schizophrenia Status: Acute Code(s): F20.9 - Schizophrenia, unspecified Plan The patient is an elderly female with a past history of schizophrenia, with several services provided by [facility] with the court order to follow treatment, guardianship and other ancillary services who had been noncompliant with treatment. She is grossly disorganized paranoid, unable to provide any details. At this moment we will try to continue treatment. Plan 2/7 continue current medications. back IM if refuses oral antipsychotic per court order. 10/03 CTP give IM if refuses po - per sec8 , monitor bp - encourage bp meds Patient educated on: medical condition Informed Consent: does not understand (thinks she is taking her bp meds) Reason for continued inpatient stay Substantial Risk for: inability to function and med/psych decompensation Time Spent With Patient Time: Total time managing care of this patient today ____ minutes.
[2024-10-03] MEDS: OLANZapine ODT 10 MG TAB.RAPDIS 5 MG TRANSLINGU (08:48)
[2024-10-03 20:00] VITALS: RESP 16
[2024-10-03] MEDS: Divalproex Sodium 250 MG TABLET.DR PO (20:13)
[2024-10-03] MEDS: OLANZapine ODT 10 MG TAB.RAPDIS 20 MG TRANSLINGU (20:14)
[2024-10-03] MEDS: Artificial Tears 15 ML DROPS 2 DROP EYE-BOTH (20:15)
[2024-10-04] MEDS: Omeprazole 20 MG CAPSULE.DR PO (06:14)
[2024-10-04] MEDS: OLANZapine ODT 10 MG TAB.RAPDIS 5 MG TRANSLINGU (09:57)
--- NOTE | 2024-10-04 11:41 | HO.PSYCHPN ---
Subjective Subjective Date of Service: 10/04/24 Reason For Visit: psychosis Subjective Notes: Section 7 and Section 8 Healthcare Proxy: No Guardianship: No Medical Problems Affecting Mental Status: No Interim History: 74 AA with psychosis refusing vital signs so not getting her bp med- but we don't know her bp - and has been high- so will drop parameters for bp to give bp med regardless- Pt denying all problems , says no headache and fine- wants to go home. Just lies in bed most of the day Medication Compliance: Yes Side effects from medications: No Attending Groups: No Review of Systems Acute medical concerns: Yes off bp med Review of Systems: denies headache Mental Status Exam Mental Status Exam Narrative: lying in bed with pjs?robe and covers over her head with just her face out Patient Orientation: Person (responds to name) Level of Consciousness: Awake Patient Behavior: Passive and Isolative Mood Description: Withdrawn Affect Description: Flat Patient Cognition Impaired: Yes Ability to Follow Directions: Poor Speech Pattern: Impoverished and Poor Articulation ([place] may not be first language though) Thought Process: Intact and Confusion Thought Content: positive for [place] Depressive Symptoms: Sleeping More Than Usual Judgement: Poor Diagnostics Vital Signs (24Hr): Vital Signs - 24 hr 10/03/24 20:00 Respiratory Rate 16 BMI result Body Mass Index 29.5 Medications Medications Current Medications Acetaminophen (Acetaminophen 325 Mg Tablet) 650 mg PO Q6H PRN PRN Reason: Headache/Pain Mild Scale (1-3) Last Admin: 09/22/24 03:22 Dose: 650 mg Al Hydroxide/Mg Hydroxide (Magnesium Hydrox/Alum Hydrox 30 Ml Oral.Susp) 30 ml PO Q6H PRN PRN Reason: Heartburn/Nausea Artificial Tears (Artificial Tears 15 Ml Drops) 2 drop EYE-BOTH Q4H PRN PRN Reason: Dry Eyes Last Admin: 10/03/24 20:15 Dose: 2 drop Divalproex Sodium (Divalproex Sodium 250 Mg Tablet.Dr) 250 mg PO BEDTIME [facility] Last Admin: 10/03/24 20:13 Dose: 250 mg Docusate Sodium (Docusate Sodium 100 Mg Capsule) 100 mg PO DAILY PRN PRN Reason: constipation Hydroxyzine HCl (Hydroxyzine Hcl 25 Mg Tablet) 25 mg PO Q6H PRN PRN Reason: Anxiety Last Admin: 09/20/24 03:04 Dose: 25 mg Magnesium Hydroxide (Milk Of Magnesia 30 Ml Oral.Susp) 30 ml PO DAILY PRN PRN Reason: Constipation Nifedipine (Nifedipine Er 60 Mg Tab.Er.24) 60 mg PO DAILY [facility] Last Admin: 10/04/24 09:58 Dose: Not Given Olanzapine (Olanzapine 10 Mg Vial) 5 mg IM DAILY PRN PRN Reason: Refusal PO Last Admin: 09/16/24 09:19 Dose: 5 mg Olanzapine (Olanzapine Odt 10 Mg Tab.Rapdis) 5 mg TRANSLINGU DAILY [facility] Last Admin: 10/04/24 09:57 Dose: 5 mg Olanzapine (Olanzapine Odt 10 Mg Tab.Rapdis) 20 mg TRANSLINGU BEDTIME [facility] Last Admin: 10/03/24 20:14 Dose: 20 mg Olanzapine (Olanzapine 10 Mg Vial) 20 mg IM BEDTIME PRN PRN Reason: Refusal PO Omeprazole (Omeprazole 20 Mg Capsule.Dr) 20 mg PO DAILY@0630 [facility] Last Admin: 10/04/24 06:14 Dose: 20 mg Trazodone HCl (Trazodone Hcl 50 Mg Tablet) 50 mg PO BEDTIME MRX1 PRN PRN Reason: Insomnia Last Admin: 09/08/24 20:15 Dose: 50 mg Allergies Allergies Allergy/AdvReac Type Severity Reaction Status Date / Time blueberry [Blueberry] Allergy Severe SWELLING Verified 09/04/24 12:35 lisinopril Allergy Intermediate cough Verified 09/04/24 12:35 mushroom Allergy Intermediate SWELLING Verified 09/04/24 12:35 shellfish derived Allergy Unknown UNKNOWN Verified 09/04/24 12:35 [SHELLFISH DERIVED] thioridazine Allergy Unknown Unknown Verified 09/04/24 12:35 tomato [TOMATO] Allergy Unknown UNKNOWN Verified 09/04/24 12:35 CHOCOLATE Allergy Intermediate ITCHING Uncoded 09/04/24 12:35 From MELLARIL Allergy Intermediate SHORTNESS Uncoded 09/04/24 12:35 OF BREATH From THORAZINE Allergy Intermediate SHORTNESS Uncoded 09/04/24 12:35 OF BREATH Assessment & Plan Assessment & Plan (1) Schizophrenia: Qualifiers: Schizophrenia type: undifferentiated schizophrenia Qualified Code(s): F20.3 - Undifferentiated schizophrenia Status: Acute Code(s): F20.9 - Schizophrenia, unspecified Plan The patient is an elderly female with a past history of schizophrenia, with several services provided by [facility] with the court order to follow treatment, guardianship and other ancillary services who had been noncompliant with treatment. She is grossly disorganized paranoid, unable to provide any details. At this moment we will try to continue treatment. Plan 10/02 continue current medications. back IM if refuses oral antipsychotic per court order. 10/03 CTP give IM if refuses po - per sec8 , monitor bp - encourage bp meds 10/04 please give bp meds regardless of allowing vs Reason for continued inpatient stay Substantial Risk for: rapid decompensation and med/psych decompensation Time Spent With Patient Time: Total time managing care of this patient today ____ minutes.
[2024-10-04 20:00] VITALS: RESP 16
[2024-10-04] MEDS: OLANZapine ODT 10 MG TAB.RAPDIS 20 MG TRANSLINGU (21:09)
[2024-10-04] MEDS: Artificial Tears 15 ML DROPS 2 DROP EYE-BOTH (21:11)
[2024-10-05] MEDS: OLANZapine ODT 10 MG TAB.RAPDIS 5 MG TRANSLINGU (09:22)
[2024-10-05] MEDS: NIFEdipine ER 60 MG TAB.ER.24 PO (09:22)
--- NOTE | 2024-10-05 10:12 | PM.PSYDC ---
DS: Providers Provider Date of Service: 10/05/24 Date of admission: 09/07/24 14:20 Date of discharge: 10/05/24 Primary care physician: Unknown Physician Admitting clinician: Bobo Garcia Attending physician on admission: Bobo Garcia Discharging clinician: Shashank Roberts DS: Diagnosis Discharge Diagnosis (1) Schizophrenia: Status: Acute DS: Medications Discharge Medications Home Medications: Previous Rx's ?Medication ?Instructions ?Recorded divalproex 250 mg tablet,delayed 250 mg PO BEDTIME 30 days #30 tabs 10/05/24 release docusate sodium 100 mg capsule 100 mg PO DAILY PRN constipation 10/05/24 30 days #30 caps nifedipine 60 mg tablet,extended 60 mg PO DAILY 30 days #30 tabs 10/05/24 release olanzapine 20 mg disintegrating 20 mg PO BEDTIME #30 tabs 10/05/24 tablet olanzapine 5 mg disintegrating 5 mg PO DAILY 30 days #30 tabs 10/05/24 tablet omeprazole 20 mg capsule,delayed 20 mg PO DAILY@0630 #90 caps 10/05/24 release peg [id number] 1 2 drp ophthalmic (eye) Q4H PRN Dry 10/05/24 %-0.2 %-0.2 % eye drops Eyes 30 days #15 mL (Artificial Tears ([id number])) Mental Status Exam Mental Status Exam Patient Appearance: Appropriate Patient Orientation: Person and Place Level of Consciousness: Awake Patient Behavior: Appropriate Mood Description: Calm Affect Description: Blunted Ability to Follow Directions: Fair Speech Pattern: Garbled Thought Process: Intact Thought Content: positive for Hayti and positive for Poverty of Content Judgement: Poor Judgement and Insight: Her speech at times is garbled at other times is more understandable she is future oriented not combative no SI no HI would not elaborate regarding current concerns or fears was comfortable future oriented DS: Summary Hospital Course Hospital Course: Psychiatry Admission Note (In) Signed Patient: eRji Smith MR#: [id number] : 1950 Acct:[id number] Age/Sex: 74 / F Loc: HO.PGERI 185-[address]: Bobo Garcia MD cc: Bobo Garcia MD~ HPI Date of Service: 09/08/24 Chief Complaint: psychosis Sources of Information: patient interviewed, chart reviewed and crisis/core team assessment reviewed HPI Subjective Notes: Section 12B Healthcare Proxy: Yes Guardianship: Yes Narrative: The patient is a 74-year-old female with a past history of schizoaffective disorder bipolar type, high blood pressure, GERD, hyperlipidemia, obesity, very well known by this team since she was in this unit last May. According to the crisis assessment, the patient had been noncompliant with medications and she relapsed in her psychotic symptoms we disorganized behavior, noncompliance and irritability. She was rushed to the emergency room, assessed by the care team and transferring to this facility for psychiatric stabilization. On admission, the patient has refused blood work, EKG and other lab work. She stated that they have been trying to poison her and she does not want to take any medications. The patient has been seen responding to internal stimuli, grossly disorganized with poor hygiene. She refused to provide any information during the intake intake. We will try to gather more collateral information, apparently she has been under [facility] case managing and she has a court order for treatment in the community over objection. Also she has a guardian and we will try to contact his providers. Past Psychiatric History: [facility] client, kev's order and guardian. Schizoaffective D/O [place] [facility] [place] [facility] [place] [facility] [place]. outpt: [facility] Medical Evaluation Reviewed: Yes [facility] Medical History Schatzki's ring Glaucoma GERD (gastroesophageal reflux disease) Hyperlipidemia Bipolar 1 disorder Surgical History History of cataract surgery History of total abdominal hysterectomy History of section Family History: unknown Social History: lives in her own apartment. 2 adult children. born in [place]. moved to [place] in 1997. Trauma History: unknown Diagnostics Vital Signs (24Hr): Vital Signs - 24 hr 09/07/24 16:15 09/07/24 20:00 09/08/24 08:00 Temperature 98.6 F 97.9 F Pulse Rate 98 91 Respiratory Rate 18 18 18 Blood Pressure 210/80 H 188/102 H Pulse Oximetry 99 98 Oxygen Delivery Method Room Air Room Air 09/08/24 08:45 Temperature Pulse Rate Respiratory Rate Blood Pressure 188/102 H Pulse Oximetry Oxygen Delivery Method BMI result Body Mass Index 31.9 Meds/Allergies Meds Home Medications Medication Instructions Recorded Confirmed Type docusate sodium 100 mg capsule 100 mg PO DAILY PRN constipation 09/04/24 09/04/24 History nifedipine 60 mg tablet,extended 60 mg PO DAILY 09/04/24 09/04/24 History release olanzapine 5 mg disintegrating 5 mg PO DAILY 09/04/24 09/04/24 History tablet Allergies Allergies Allergy/AdvReac Type Severity Reaction Status Date / Time blueberry [Blueberry] Allergy Severe SWELLING Verified 09/04/24 12:35 lisinopril Allergy Intermediate cough Verified 09/04/24 12:35 mushroom Allergy Intermediate SWELLING Verified 09/04/24 12:35 shellfish derived Allergy Unknown UNKNOWN Verified 09/04/24 12:35 [SHELLFISH DERIVED] thioridazine Allergy Unknown Unknown Verified 09/04/24 12:35 tomato [TOMATO] Allergy Unknown UNKNOWN Verified 09/04/24 12:35 CHOCOLATE Allergy Intermediate ITCHING Uncoded 09/04/24 12:35 From MELLARIL Allergy Intermediate SHORTNESS Uncoded 09/04/24 12:35 OF BREATH From THORAZINE Allergy Intermediate SHORTNESS Uncoded 09/04/24 12:35 OF BREATH Mental Status Exam Mental Status Exam Patient Appearance: Unkempt Patient Orientation: Person and Situation Level of Consciousness: Awake Patient Behavior: Guarded Mood Description: Withdrawn and Constricted Affect Description: Blunted Patient Cognition Impaired: Yes Ability to Follow Directions: Poor Speech Pattern: Impoverished and Difficulty Finding Words Hallucinations: Auditory Delusions: Paranoid Ideation and Ideas of Reference Thought Process: Illogical and Slowed Thinking Thought Content: positive for Hayti and positive for Loose Associations Judgement: Poor Assessment & Plan Assessment & Plan (1) Schizophrenia: Status: Acute Qualifiers: Schizophrenia type: undifferentiated schizophrenia Qualified Code(s): F20.3 - Undifferentiated schizophrenia Code(s): F20.9 - Schizophrenia, unspecified Plan The patient is an elderly female with a past history of schizophrenia, with several services provided by [facility] with the court order to follow treatment, guardianship and other ancillary services who had been noncompliant with treatment. She is grossly disorganized paranoid, unable to provide any details. At this moment we will try to continue treatment. Plan 1. Gather collateral information. We will try to contact the guardian and the court order monitor for treatment over objection. 2. Restart Zyprexa as per med reconciliation form. 3. Continue with nifedipine and other medications for blood pressure. 4. Blood work and EKG. 5. Reassessment with results. 6. 5 minutes checks for safety. Patient educated on: diagnosis, medication risk/benefits, therapeutic strategies and medical condition Reason for continued inpatient stay Substantial Risk for: inability to function, rapid decompensation and med/psych decompensation Statement Statement: I have reviewed the history and physical and performed a pertinent examination on my patient. No changes have occurred unless specified. If the History and Physical was not performed prior to admission, the Hospitalist's service will be consulted for completing the admission physical. Time Spent With Patient Time: Total time managing care of this patient today __45__ minutes. Dictated By: Bobo Garcia MD Signed By: <Electronically signed by Bobo Garcia MD> 09/08/24 1503 DD/ 1421 TD/TT: 09/08/24 1421 Seasonal Customer Service Associate: HOSPITAL COURSE The patient was admitted by Dr. Garcia for paranoid agitation in the context of noncompliance with outpatient treatment with a diagnosis of schizophrenia. The patient does have a Jack order and guardian she was initially on a section 12 B . Patient was generally flat often spending much of her time in her room her speech was often dysarthric and difficult to understand which is a longstanding issue. She would intermittently have paranoid delusional concerns auditory hallucinations would frequently not elaborate. Tended to refuse her antihypertensive medication intermittently. Olanzapine was gradually changed to Zydis and with the Jack order the patient was eventually compliant treatment not needing IM medication.. She would intermittently refuse nifedipine despite repeated education at times her systolic would run into the 160s 180s and she would intermittently refuse vital signs. She was accepting of treatment with olanzapine dissolving she was not overly aggressive was taking care of herself not combative and was maintaining nutrition. The patient was discharge prior to court hearing for civil commitment. She might benefit from conversion to a long-acting injectable. Was resistant to education regarding her medical condition particularly hypertension. Would not allow blood work did try to discuss with patient biologic effects of medication and intermittently refusing medication for hypertension did not seem to be able to process this information. Status at Discharge Cognitive/behavioral status at discharge: Patient was pleasant cooperative at the time of discharge not verbalizing any grossly delusional material was calm cooperative and looking forward to going home continues to have limited insight regarding her condition and treatment Functional status at discharge: independent ambulation Overall status at discharge: patient is progressing back to baseline Time Spent with Patient Time attestation: Total time managing care of this patient today ____ minutes. Time spent: Greater than 30 minutes Discharge Plan Discharge Anticipated Discharge Date/Time: 10/05/24 10:00 Patient Disposition: Home Health Service Discharge Diagnosis: schizophrenia hypertension Referrals: Terrell OATES [Other] - 10/05/24 (Medication management x2 a day to resume at time of discharge.) Dr. Iyer (Psychiatrist) [Other] - 1 Week ([facility] team will be making your Psych appointment with Dr. Iyer. any questions or concerns can be directed to Kallie at [phone]) [facility] [employer] ([facility]) [Other] - 1 Week (Your workers Kallie ([phone]) and Meena ([phone]) will be able to answer any questions that you ahve about appointment or your daily routine. please call either of them if there are any issues. ) Bradley Zimmer MD [Physician] - 1 Week ([facility] team will be making your PCP appointment with Dr. Zimmer. any questions or concerns can be directed to Kallie at [phone]) Discharge Medications: New olanzapine 5 mg tablet,disintegrating 5 mg PO DAILY 30 Days Qty: 30 1RF olanzapine 20 mg tablet,disintegrating 20 mg PO BEDTIME Qty: 30 1RF Artificial Tears(jr-[id number]-[id number]) 1-0.2-0.2 % Drops 2 drp ophthalmic (eye) Q4H PRN (Reason: Dry Eyes) 30 Days Qty: 15 0RF Continued divalproex 250 mg Tablet,Delayed Release (Dr/Ec) 250 mg PO BEDTIME 30 Days Qty: 30 0RF docusate sodium 100 mg capsule 100 mg PO DAILY PRN (Reason: constipation) 30 Days Qty: 30 0RF omeprazole 20 mg capsule,delayed release(DR/EC) 20 mg PO DAILY@0630 Qty: 90 3RF nifedipine 60 mg tablet extended release 60 mg PO DAILY 30 Days Qty: 30 0RF Discontinued olanzapine 15 mg tablet 15 mg PO BEDTIME Qty: 30 0RF olanzapine 5 mg tablet,disintegrating 5 mg PO DAILY Discharge Orders: Discharge Order (Routine); Ordered 10/05/24 Ordered By: Shashank Roberts Diet: Advance to usual diet Activity on Discharge: As tolerated Stand Alone Forms: Patient Portal Discharge page, Community Support Print Language: Pashto Care Plan Goals: you have vna take medications as prescribed for schizophrenia and hypertension stabilize mood decrease paranoia accept medical treatment Health Concerns: hypertension schizophrenia Plan of Treatment: medication take meds as prescribed vna psychiatry outreach team Assessment: not agitated future oriented not combative taking medication Discharge Date/Time: 10/05/24 10:45
== END 2024-10-05 10:45 | disposition home health service (06) | DRG 885 ==
LOC: HO.ED 14:40 → HO.PGERI 09-07 14:25
PROVIDERS: Physician Assistant Medical; Admitting Provider Psychiatry & Neurology Psychiatry; Emergency Provider Emergency Medicine; Visit Provider Psychiatry & Neurology Psychiatry
DX: F20.3 Undifferentiated schizophrenia (principal); E78.5 Hyperlipidemia, unspecified; K21.9 Gastro-esophageal reflux disease without esophagitis; Z87.891 Personal history of nicotine dependence; Z79.899 Other long term (current) drug therapy
CPT/HCPCS: 80307; 81003; 93005; 99285; J2060; J2359; S9485

== ENCOUNTER 2024-09-07 14:20 | Outpatient (BNV) | payer OTHER, SELFPAY | END 2024-09-12 13:22 | PROVIDERS: Admitting Provider Psychiatry & Neurology Psychiatry; Emergency Provider Emergency Medicine; Visit Provider Internal Medicine Cardiovascular Disease | DX: R07.9 Chest pain, unspecified (principal) | CPT/HCPCS: 93010 ==

== ENCOUNTER → 2024-09-07 14:20 | Outpatient (BNV) | payer OTHER, SELFPAY | PROVIDERS: Admitting Provider Psychiatry & Neurology Psychiatry; Emergency Provider Emergency Medicine; Visit Provider Psychiatry & Neurology Psychiatry | DX: F20.3 Undifferentiated schizophrenia (principal) | CPT/HCPCS: 90792; 99231; 99232 ==

== ENCOUNTER → 2024-09-07 14:20 | Outpatient (BNV) | payer OTHER, SELFPAY | PROVIDERS: Admitting Provider Psychiatry & Neurology Psychiatry; Emergency Provider Emergency Medicine; Visit Provider Psychiatry & Neurology Psychiatry | DX: F20.3 Undifferentiated schizophrenia (principal) | CPT/HCPCS: 99231 ==

== ENCOUNTER 2024-12-25 12:53 | Inpatient (IN) | payer OTHER, SELFPAY ==
[2024-12-25] VITALS (10 sets, daily range): BP systolic 182–239; BP diastolic 83–133; PULSE 79–123; RESP 18–20; TEMP 36.8; O2SAT 97–98; BMI 37.2
--- NOTE | 2024-12-25 14:10 | MHC.EDTECH ---
Patient is confused and agitated and is refusing vitals, EKG and labs. RN aware.
--- NOTE | 2024-12-25 14:12 | ED.PSYCH ---
HPI - Psych General Chief Complaint: Psychiatric Symptoms Stated Complaint: AGITATED, SEC 12, BEHAVIORAL EPISODE PER EMS Time Seen by Provider: 12/25/24 13:25 Source: RN notes reviewed and old records reviewed Mode of arrival: EMS Limitations: altered mental status History of Present Illness ED Provider: STEVEN PERDOMO Narrative: 74 year old female with PMHx of schizophrenia, HTN, and HLD presents to the ED by ambulance as a section 12 with PD. EMS reports patient has not been med compliant. Patient is agitated and refusing to narrate or answer any questions. She is not taking her medicaitons. She will not answer any questions. S12 from [facility] plan for inpatient. Hx of same in past MD complaint: other Onset (ago): unknown Duration: constant History of same: Yes Relieving factors: none Exacerbating factors: other Context: not taking psychiatric medications Associated psychiatric symptoms: none Associated symptoms: denies other symptoms Treatments prior to arrival: placed on mental health hold Related Data Previous Rx's ?Medication ?Instructions ?Recorded divalproex 250 mg tablet,delayed 250 mg PO BEDTIME 30 days #30 tabs 10/05/24 release docusate sodium 100 mg capsule 100 mg PO DAILY PRN constipation 10/05/24 30 days #30 caps nifedipine 60 mg tablet,extended 60 mg PO DAILY 30 days #30 tabs 10/05/24 release olanzapine 20 mg disintegrating 20 mg PO BEDTIME #30 tabs 10/05/24 tablet olanzapine 5 mg disintegrating 5 mg PO DAILY 30 days #30 tabs 10/05/24 tablet omeprazole 20 mg capsule,delayed 20 mg PO DAILY@0630 #90 caps 10/05/24 release peg [id number] 1 2 drp ophthalmic (eye) Q4H PRN Dry 10/05/24 %-0.2 %-0.2 % eye drops Eyes 30 days #15 mL (Artificial Tears ([id number])) atorvastatin 80 mg tablet 80 mg PO DAILY #90 tabs 11/08/24 Allergies Allergy/AdvReac Type Severity Reaction Status Date / Time blueberry [Blueberry] Allergy Severe SWELLING Verified 12/25/24 13:30 lisinopril Allergy Intermediate cough Verified 12/25/24 13:30 mushroom Allergy Intermediate SWELLING Verified 12/25/24 13:30 shellfish derived Allergy Unknown UNKNOWN Verified 12/25/24 13:30 [SHELLFISH DERIVED] thioridazine Allergy Unknown Unknown Verified 12/25/24 13:30 tomato [TOMATO] Allergy Unknown UNKNOWN Verified 12/25/24 13:30 CHOCOLATE Allergy Intermediate ITCHING Uncoded 09/04/24 12:35 From MELLARIL Allergy Intermediate SHORTNESS Uncoded 09/04/24 12:35 OF BREATH From THORAZINE Allergy Intermediate SHORTNESS Uncoded 09/04/24 12:35 OF BREATH Review of Systems Review of Systems: ROS limited as patient is agitated, delusional, and refusing to answer questions Yes all other systems are reviewed and are negative [facility] Past Medical History Attestation statement: The following information was validated with the patient. Source: old records reviewed and other (EMS ) Medical History Schatzki's ring Glaucoma GERD (gastroesophageal reflux disease) Hyperlipidemia Bipolar 1 disorder Surgical History History of cataract surgery History of total abdominal hysterectomy History of section Family History Family History Father No problems noted. Mother No problems noted. Social History Social History Household Members: None Household Members Other:: patient refusing to respond Housing: Apartment Housing Other:: patient refusing to respond Do you presently have visiting nurse or other home services: No Unable to assess alcohol history related to: Refusing to respond Alcohol intake: never Comment: 02/2024 Patient Tobacco Use Status: Former Tobacco user Tobacco use type: Cigarette e-Cigarette/Vaping Use: Never Used Second Hand Smoke Exposure: No Advance Directives: Yes Advance Directives Information Provided: Yes Advance Directives on File: No Nutrition Risks: No Nutritional Risk service: No Current occupational status: disabled Sexual orientation: Straight/Heterosexual Cognitive needs: Yes Hearing needs: Yes Vision needs: Yes Physical Exam Vital Signs: Vital Signs: Last Vital Signs Temp 98.2 F 12/25/24 13:22 Pulse 112 H 12/26/24 12:19 Resp 16 12/26/24 12:19 BP 164/74 H 12/26/24 12:19 Pulse Ox 96 12/26/24 12:19 O2 Del Method Room Air 12/26/24 12:19 BMI result Body Mass Index 37.2 Appearance: Alert. won't speak or engage, mildly agitated, delusional, unable to answer questions. Eyes: Pupils equal, round and reactive to light. ENT: Pharynx normal. atraumatic Neck: Normal inspection. Neck supple. CVS: Pulses normal. Respiratory: No respiratory distress. Abdomen: atraumatic Skin: Skin warm and dry. Normal skin color. Extremities: will not allow a leg exam at this time but no obvious trauma and moving ext Neuro: moving all ext but won't answer questions or follow commands Course Course Course Narrative: 12/25/24 317pm patikanchan refusing BP medications and oral zyprexa at this time given her HTN I am concerned for serious issues I will give IM medications in order to better treat her and start her on therapy so I can hopefully start giving her oral medications. She is agitated at times up and down. Reevaluation(s) Reevaluation #1: signed out to Dr. Tee pending monitoring and lab results Reevaluation #2: doing better Reevaluation #3: Time: 07:59 Date: 12/26/24 Provider: Paulino Lopez MD Patient in physician observation for psychiatric evaluation.? No acute events reported overnight. No current complaints. VS stable.? Patient is pending CARE team evaluation. Will continue to monitor. Additional Reevaluation(s): 12/26/2024 13:17 Patient will be admitted to psych unit this end of the observation status Medications Administered Generic Name Dose Route Start Last Admin Trade Name Freq PRN Reason Stop Dose Admin Atorvastatin Calcium 80 mg 12/26/24 09:00 12/26/24 08:56 Atorvastatin Calcium 80 Mg Tablet PO Not Given DAILY EDIN Nifedipine 60 mg 12/26/24 09:00 12/26/24 08:57 Nifedipine Er 60 Mg Tab.Er.24 PO Not Given DAILY EDIN Olanzapine 5 mg 12/26/24 09:00 12/26/24 08:57 Olanzapine 5 Mg Tablet PO Not Given DAILY EDIN Omeprazole 20 mg 12/26/24 06:30 12/26/24 06:45 Omeprazole 20 Mg Capsule.Dr PO Not Given DAILY@0630 EDIN Discontinued Medications Generic Name Dose Route Start Last Admin Trade Name Freq PRN Reason Stop Dose Admin Nifedipine 60 mg 12/25/24 13:33 05/02/25 18:34 Nifedipine Er 30 Mg Tab.Er.24 PO 12/25/24 13:34 60 mg ONCE ONE Administration Protocol Olanzapine 5 mg 12/25/24 13:33 12/25/24 14:40 Olanzapine 5 Mg Tablet PO 12/25/24 13:34 Not Given ONCE ONE Olanzapine 5 mg 12/25/24 15:14 12/25/24 16:00 Olanzapine 10 Mg Vial IM 12/25/24 15:15 5 mg STAT STA Administration Medical Decision Making Medical Decision Making MDM Narrative: 74 year old female with PMHx of schizophrenia, HTN, and HLD presents to the ED by ambulance as a section 12 with PD. EMS reports patient has not been med compliant. Patients vital signs significant for elevated BP of 231/123. Patient is refusing to narrate, is delusional and refuses to answer questions. Patient is writhing on hospital bed and has withdrawn affect. Will obtain lab work including Depakote serum level, ETOH, UA drug screen. Will obtain EKG. Will start patient on 60mg nifedipine to manage hypertension. Will give 5mg zyprexa to manage schizophrenia and anxiety while in the department. Care team consult placed. Physician observation started at 14:23, currently awaiting CARE team consult. I received sign-out from my colleague Dr. Archibald I was informed by the patient's nurses the patient's blood pressure is elevated. Patient does have history of hypertension. However, patient is very anxious restless when they take the blood pressure, unclear if this is a reliable blood pressure. Patient does have history of hypertension, takes nifedipine. At 18:30, patient's blood pressure was taken, blood pressure 228/133. Patient received nifedipine. Since then, patient has refused to have her blood pressure taken, patient becomes very violent. We will attempt to give patient's medication to get her sleepy since it is getting close to her bedtime, and we will attempt getting her blood pressure again. Differential Diagnosis Differential Diagnoses: The differential diagnosis associated with the presentation includes schizophrenia, ETOH intoxication, substance intoxication, electrolyte imbalance, arrhythmia Admission/Observation Consideration of admission/observation: Escalation of care including admission/observation considered physician observation started at 245pm pending CARE team Consult Healthcare Provider Management of the patient was discussed with: Behavioral Health Provider Lab Data [facility] Lab Attestation statement: I reviewed the patient's lab results. Labs: Lab Results 12/25/24 Range/Units 14:39 Urine Color Yellow Urine Appearance Clear Urine pH 6.0 (5.0-9.0) Ur Specific Pruden <= 1.005 (1.005-1.025) Urine Protein 30 (1+) H (Neg-Trace) mg/dL Urine Glucose (UA) Negative (Negative) mg/dL Urine Ketones Negative (Negative) mg/dL Urine Blood Negative (Negative) Urine Nitrite Negative (Negative) Ur Leukocyte Esterase Negative (Negative) Urine RBC 0-2 (0-2) /HPF Urine WBC 0-5 (0-5) /HPF Ur Squamous Epith Cells 0-2 (0-2) /HPF Urine Bacteria None Seen (None Seen) Hyaline Casts 0-2 (0-2) /LPF Urine Opiates Screen Not Detected (Not Detect) Ur Buprenorphine Scrn Not Detected (Not Detect) ng/mL Ur Oxycodone Screen Not Detected (Not Detect) ng/mL Urine Methadone Screen Not Detected (Not Detect) ng/mL Urine Fentanyl Screen Not Detected (Not Detect) Ur Barbiturates Screen Not Detected (Not Detect) Ur Phencyclidine Scrn Not Detected (Not Detect) Ur Amphetamines Screen Not Detected (Not Detect) U Benzodiazepines Scrn Not Detected (Not Detect) Urine Cocaine Screen Not Detected (Not Detect) U Marijuana (THC) Screen Not Detected (Not Detect) Independent Interpretation I performed an independent interpretation of an: EKG Interpretation: Rate: Rhythm: Harmans: Normal P waves. Normal HANNAH. Normal QRS complex. ST T wave : qTC: prior studies: The study has been interpreted contemporaneously by me. . Independent Historian Clinical information obtained from an independent historian. History obtained from or confirmed by: EMS External Record Review External record reviewed: Inpatient record and Outpatient record Chronic Conditions Patient?s care impacted by: Hypertension Discharge Plan Discharge Clinical Impression: Schizophrenia Qualifiers: Schizophrenia type: undifferentiated schizophrenia Qualified Code(s): F20.3 - Undifferentiated schizophrenia Patient Disposition: Admitted As Inpatient Interventions: [place]-Suicide Risk Severity Scale Last Done: 12/25/24 16:19 Print Language: German
--- NOTE | 2024-12-25 14:40 | PC.NURSE ---
patient spit out zyprexa tablet, 2nd tablet removed from pyxis and attempted to medicated patient again, patient refused. physician aware.
[2024-12-25 14:49] LABS: Appearance Urine Clear; Color Urine Yellow; Glucose Urine UA Negative (Negative); Leukocyte Esterase Urine Negative (Negative); Nitrite Urine Negative (Negative); Specific Gravity - Urine <= 1.005 (1.005-1.025); UMIC TRIGGER UACC YES; Urine Blood Negative (Negative); Urine Ketones Negative (Negative); Urine Protein 30 (1+) mg/dL (Neg-Trace)
[2024-12-25 14:51] LABS: Bacteria Urine None Seen (None Seen); Hyaline Casts Urine 0-2 /LPF (0-2); RBC Urine 0-2 /HPF (0-2); Squamous Epithelial Cell Urine 0-2 /HPF (0-2); WBC Urine 0-5 /HPF (0-5)
--- NOTE | 2024-12-25 14:59 | MHC.EDTECH ---
Second attempted at labs, vitals and EKG unsuccessful. Patient still confused and agitated. RN aware.
[2024-12-25 15:01] LABS: Amphetamine Screen Urine Not Detected (Not Detect); Barbiturates, Urine Not Detected (Not Detect); Benzodiazepines Screen Urine Not Detected (Not Detect); Buprenorphine Scr Not Detected (Not Detect); Cannabinoid Screen Urine Not Detected (Not Detect); Cocaine Screen Urine Not Detected (Not Detect); Fentanyl, urine Not Detected (Not Detect); Methadone Screen, Urine Not Detected (Not Detect); Opiate Screen Urine Not Detected (Not Detect); Oxycodone Screen Urine Not Detected (Not Detect); Phencyclidine Screen Urine Not Detected (Not Detect)
--- OUTSIDE RECORDS SUMMARY | 2024-12-25 15:01 | XMS_ITS | Encounter Summary ---
Author Organization [facility] Address [address] [facility] 7[address] [place] [address] Care Team Providers Care Sustainable Development Policy Analyst Name Role Phone Unavailable Primary Care Provider Unavailabl e Encounter Details Date Type Department Care Team (Latest Contact Info) Description 03/25/2019 Abstract [facility] CONVERSIONS Dental, Provider, DDS Social History Tobacco Use Types Packs/Day Years Used Date Smoking Tobacco: Never Assessed Comments Unknown Sex and Gender Information Value Date Recorded Sex Assigned at Female 06/25/2022 10:23 AM EDT Legal Sex Female 10:23 AM EDT Gender Identity Female 06/25/2022 10:23 AM EDT Sexual Orientation Straight 06/25/2022 10 :23 AM EDT documented as of this encounter Plan of Treatment Not on file documented as of this encounter Visit Diagnoses Not on filedocumented in this encounter
--- OUTSIDE RECORDS SUMMARY | 2024-12-25 15:01 | XMS_ITS | Clinical Summary ---
Author Organization [facility] Address [address] [facility] [address] [place] [address] Phone Care Team Providers Care Train Planner Name Role Phone Bradley Zimmer MD Primary Care Provider [phone] Allergies Active Allergy Reactions Criticality Noted Date Comments Lisinopril 05/22/2021 Thioridazine 05/22/2021 Medications aspirin (ST JASMINE) 81 MG EC tablet Take 81 mg by mouth 1 (one) time each day Active divalproex (DEPAKOTE) 250 MG EC tablet Take 250 mg by mouth 1 (one) time each day Do not crush, chew, or split. Active docusate sodium (COLACE) 100 MG capsule Take 100 mg by mouth 2 (two) times a day Active OLANZapine (ZyPREXA) 5 MG tablet Take 5 mg by mouth every night Active omeprazole (PriLOSEC) [address] capsule Take 20 mg by mouth 1 (one) time each day Do not crush or chew. Active atorvastatin (LIPITOR) 20 MG tablet Take 20 mg by mouth 1 (one) time each day 1 Active D3-1000 25 MCG (1000 UT) capsule Take 1,000 Units by mouth 1 (one) time each day 1 Active Oyster Shell Calcium 500 MG tablet Take 1 tablet by mouth 1 (one) time each day 1 Active NIFEDIPINE ER PO Take 100 mg by mouth daily Active simethicone (MYLICON) 80 MG chewable tablet Chew 80 mg every 6 (six) hours if needed for flatulence Active valsartan-hydro CHLOROthiazide (DIOVAN-HCT) 80-12.5 MG per tablet TAKE ONE TABLET BY MOUTH ONCE EACH DAY 30 tablet 11 2 Active Active Problems Problem Noted Date Diagnosed Date Hypertension 05/22/2021 Resolved Problems Problem Noted Date Diagnosed Date Resolved Date Bipolar disorder 05/22/2021 09/05/2021 Gastroesophageal reflux disease 05/22/2021 05/22/2021 Glaucoma 05/22/2021 09/05/2021 Hyperlipidemia 05/22/2021 09/05/2021 History of Schatzkis ring 05/22/2021 Diabetes mellitus 05/22/2021 09/05/2021 Obesity 05/22/2021 09/05/2021 Social History Tobacco Use Types Packs/Day Years Used Date Smoking Tobacco: Never Smokeless Tobacco: Never Alcohol Use Standard Drinks/Week Comments Never 0 (1 standard drink = 0.6 oz pur e alcohol) Comments Unknown Sex and Gender Information Value Date Recorded Sex Assigned at Not on file Legal Sex Female 9:01 AM EDT Gender Identity Not on file Sexual Orientation Not on file Last Filed Vital Signs Vital Sign Reading Time Taken Comments Blood Pressure 140/80 02/04/2023 2:26 PM EDT Pulse 71 02/04/2023 2:26 PM EDT Temperature - - Respiratory Rate - - Oxygen Saturation 96% 02/04/2023 2:26 PM EDT Inhaled Oxygen Concentration - - Weight 97.3 kg (214 lb 9.6 oz) 02/04/2023 2:26 P M EDT Height 160 cm (5' 3 ) 02/04/2023 2:26 PM EDT Body Mass Index 38.01 02/04/2023 2:26 PM EDT Plan of Treatment Health Maintenance Due Date Last Done Comments Pneumococcal Vaccine: 50+ Ye ars (1 of 2 - PCV) 02/09/1967 Influenza Vaccine (Season Ended) 2025 Hepatitis B Vaccine Aged Out No longe r eligible based on patient's age to complete this topic Insurance [facility] ([id number]) [facility] ([id number]) Care Teams Train Planner Relationship Specialty Start Date End Date Bradley Zimmer MD [facility] [address] [place], [place] PCP - General Internal Medicine 12/23/20
--- OUTSIDE RECORDS SUMMARY | 2024-12-25 15:01 | XMS_ITS | Encounter Summary ---
Author Organization [facility] Address [address] 7[address] [place] [address] Care Team Providers Care Senior Javascript Engineer Name Role Phone Unavailable Primary Care Provider Unavailabl e Encounter Details Date Type Department Care Team (Latest Contact Info) Description 10/30/2021 Abstract [facility] CONVERSIONS Dental, Provider, DDS Social History [...]
--- OUTSIDE RECORDS SUMMARY | 2024-12-25 15:01 | XMS_ITS | Clinical Summary ---
Author Organization [employer] [facility] Address [address] [place] [address] Care Team Providers Care Stock Hanger Name Role Phone Unavailable Primary Care Provider Unavailabl e Social History Tobacco Use Types Packs/Day Years Used Date Smoking Tobacco: Never Assessed Comments Unknown Sex and Gender Information Value Date Recorded Sex Assigned at Female 06/25/2022 10:23 AM EDT Legal Sex Female 10:23 AM EDT Gender Identity Female 06/25/2022 10:23 AM EDT Sexual Orientation Straight 06/25/2022 10 :23 AM EDT Last Filed Vital Signs Vital Sign Reading Time Taken Comments Blood Pressure 125/70 09/28/2019 12:02 AM EST Pulse 82 09/28/2019 12:02 AM EST Temperature - - Respiratory Rate - - Oxygen Saturation - - Inhaled Oxygen Concentration - - Weight - - Height - - Body Mass Index - - Plan of Treatment Health Maintenance Due Date Last Done Comments Depression Screening 1948 Alcohol/Substance Use Screening 1960 Tobacco Screening 1962 DTaP/Tdap/Td Vaccines (1 - Tdap) 02/09/1967 Pneumococcal Vaccine: 50+ Years (1 of 1 - PCV) 02/09/1998 Zoster Vaccines (1 of 2) 02/09/1998 RSV Patients and Patients Aged 60 years or older (1 - 1-dose 75+ series) 02/09/2023 COVID-19 Vaccine (2023-2 5 season) 2024 01/16/2021, 12/19/2020 Influenza Vaccine (#1) 2024 HIB Vaccines Aged Out No longer eligi ble based on patient's age to complete this topic HPV Vaccines Aged Out No longer eligi ble based on patient's age to complete this topic Hepatitis A Vaccines Aged Out No long er eligible based on patient's age to complete this topic Hepatitis B Vaccines Aged Out No long er eligible based on patient's age to complete this topic IPV Vaccines Aged Out No longer eligi ble based on patient's age to complete this topic Meningococcal Vaccine Aged Out No fercho kyra eligible based on patient's age to complete this topic RSV under 20 months Aged Out No longe r eligible based on patient's age to complete this topic Rotavirus Vaccines Aged Out No longer eligible based on patient's age to complete this topic
[2024-12-25] MEDS: OLANZapine 10 MG VIAL 5 MG IM (16:00)
--- NOTE | 2024-12-25 16:00 | PC.NURSE ---
Patient continues to refuse treatment, refusing meds, refusing blood work, EKG and vitals, also refusing repeat vitals despite elevated blood pressure during initial triage. When this RN attempts to take vitals and explain things to patient she becomes increasingly agitated and restless. physician aware. patient medicated w/ IM zyprexa per order.
--- NOTE | 2024-12-25 18:02 | PC.NURSE ---
patient currently talking to CARE team
[2024-12-25] MEDS: NIFEdipine ER 30 MG TAB.ER.24 60 MG PO (18:34)
--- NOTE | 2024-12-25 19:19 | PC.NURSE ---
patient appears to remain at rest presently seated in common area, appears in no distress
--- NOTE | 2024-12-25 19:35 | PC.NURSE ---
adryan KIRBY states she'll get pneumonia if we take her labs. calling out from rest room
--- NOTE | 2024-12-25 21:08 | PC.NURSE ---
another attempt at vs, client attempted to batter staff and yelling.
--- NOTE | 2024-12-25 23:34 | PC.NURSE ---
This teletypewriter installer assumed care of this Pt at 2300. Pt awake, calm and cooperative, ambulating independently with steady gait. Given sandwich and drink per request.
--- NOTE | 2024-12-26 | ECG_ITS ---
Test Reason : syncope Blood Pressure : */* mmHG Vent. Rate : 71 BPM Atrial Rate : 71 BPM P-R Int : 176 ms QRS Dur : 70 ms QT Int : 424 ms P-R-T Axes : 54 4 61 degrees QTcB Int : 460 ms Normal sinus rhythm Possible Left atrial enlargement Borderline ECG No previous ECGs available Referred By: Maren Mathew Electronically Signed By:
--- NOTE | 2024-12-26 06:29 | PC.NURSE ---
Pt laying in bed, refused vitals multiple times.
[2024-12-26 06:30] VITALS: RESP 18
--- NOTE | 2024-12-26 07:24 | PC.NURSE ---
Assumed care of patient at 0645, patient appears to be in no apparent distress this am, sitting up in room eating breakfast. Continue plan of care for IPLOC
--- NOTE | 2024-12-26 08:19 | PHA.MEDREC ---
Pharmacy Consult ? Medication Reconciliation Pharmacy has REVIEWED the medication reconciliation DONE BY NURSING.
--- NOTE | 2024-12-26 09:56 | PC.NURSE ---
patient refusing lab work and ekgs
[2024-12-26 12:19] VITALS: BP 164/74; PULSE 112; RESP 16; O2SAT 96
--- NOTE | 2024-12-26 12:46 | PC.NURSE ---
pt allowed this RN to take her BP, pt did become agitated while cuff was inflating. Pt now pacing around BH pod, redirectable
--- NOTE | 2024-12-26 13:49 | PC.NURSE ---
report given to Ty Lopez
[2024-12-26 14:17] VITALS: PULSE 110; RESP 18; TEMP 36.5; O2SAT 99
[2024-12-26 14:18] VITALS: BMI 35.1
--- NOTE | 2024-12-26 17:08 | PC.ADMIT ---
74 y/o female admitted to [facility] via wheelchair on a 12b from [facility] POD at 1350. Pt was BIBA on 12/25/24 on a section 12 after pt's ACCS team expressed concern for pt's safety. Per report pt had stopped taking medications for past two weeks ago, as well as refusal to attend appointments. Pt's ACCS team also expressed concern that pt was not attending to ADLs or eating adequate meals. Per report pt lives in a [facility] managed apartment with one other roommate, and may have received an eviction notice. Pt has VNA services twice per week, as well as CALCINER OPERATOR assistance for house hold help. Pt also has a [facility] rep payee, a legal guardian, and an active Jack order. On arrival to ED pt was disorganized, delusional, and agitated. Per ED report, pt was hypertensive on arrival, however was yelling through blood pressure readings. Per report pt refused PO meds in the ED, and received Olanzapine 10 mg IM to order to reduce agitation. Pt accepted one dose of Nifedipine PO after IM medication but refused repeat BP reading. Per report, pt was delusional, nonsensical, and disorganized today in the POD. Pt allowed one BP check today which was improved compared to previous day. Pt refused all scheduled medications today. On arrival to [facility] unit, pt was confused and intermittently agitated. Pt was resistive to safety check and minimally cooperative with skin check. Despite attempts made by two RNs during the skin check, pt would not remove bra, or compression underwear that went down to pt's lower thigh, prohibiting full inspection of covered areas. No significant findings on visible skin. Pt also refused to remove bracelet, and two rings. Pt became agitated with attempts made. Pt loud at times, and difficult to understand due to speech impediment. Pt refused to allow blood pressure reading, refused to participate in full admission process, and refused to sign releases. Pt was provided space in room, and was able to de-escalate herself when given space. Pt spent time quietly sitting in bed after arrival. However, pt irritable and agitated easily when approached. Pt placed on 5 minute checks for safety.
[2024-12-26 20:37] VITALS: BP 142/93
[2024-12-26] MEDS: OLANZapine ODT 10 MG TAB.RAPDIS 20 MG TRANSLINGU (20:37)
[2024-12-26] MEDS: NIFEdipine ER 60 MG TAB.ER.24 PO (20:37)
[2024-12-26 22:27] VITALS: BP 84/50; PULSE 63
[2024-12-26 22:28] LABS: Glucose, Whole Blood 161 mg/dL (60-115)
--- NOTE | 2024-12-26 22:35 | PC.NURSE ---
At approximately 2215, [facility] alerted staff that patient had slumped over in chair. Upon further assessment, patient unresponsive to voice, responsive to sternal rub only. Rapid Response called. Patient appears diaphoretic. Automatic BP 84/50, manual BP 90/48. Patient slowly more arrousable over time. Patient transferred to stretcher. BP recheck at 2240 145/68 HR 75. Patient will be transferring to medical floor for further evaluation.
--- NOTE | 2024-12-26 22:37 | HO.PSYADMNOT ---
HPI Date of Service: 12/26/24 Chief Complaint: Psychosis HPI Narrative: per 12/25 ED note: HPI Narrative: 74 year old female with PMHx of schizophrenia, HTN, and HLD presents to the ED by ambulance as a section 12 with PD. EMS reports patient has not been med compliant. Patient is agitated and refusing to narrate or answer any questions. She is not taking her medicaitons. She will not answer any questions. S12 [facility] plan for inpatient. Hx of same in past Course Course Narrative: 12/25/24 317pm patinet refusing BP medications and oral zyprexa at this time given her HTN I am concerned for serious issues I will give IM medications in order to better treat her and start her on therapy so I can hopefully start giving her oral medications. She is agitated at times up and down. Reevaluation(s) Reevaluation #1: signed out to Dr. Tee pending monitoring and lab results Reevaluation #2: doing better Reevaluation #3: Time: 07:59 Date: 12/26/24 Provider: Paulino Lopez MD Patient in physician observation for psychiatric evaluation.? No acute events reported overnight. No current complaints. VS stable.? Patient is pending CARE team evaluation. Will continue to monitor. Additional Reevaluation(s): 12/26/2024 13:17 Patient will be admitted to psych unit this end of the observation status Medical Decision Making MDM Narrative: 74 year old female with PMHx of schizophrenia, HTN, and HLD presents to the ED by ambulance as a section 12 with PD. EMS reports patient has not been med compliant. Patients vital signs significant for elevated BP of 231/123. Patient is refusing to narrate, is delusional and refuses to answer questions. Patient is writhing on hospital bed and has withdrawn affect. Will obtain lab work including Depakote serum level, ETOH, UA drug screen. Will obtain EKG. Will start patient on 60mg nifedipine to manage hypertension. Will give 5mg zyprexa to manage schizophrenia and anxiety while in the department. Care team consult placed. Physician observation started at 14:23, currently awaiting CARE team consult. I received sign-out from my colleague Dr. Archibald I was informed by the patient's nurses the patient's blood pressure is elevated. Patient does have history of hypertension. However, patient is very anxious restless when they take the blood pressure, unclear if this is a reliable blood pressure. Patient does have history of hypertension, takes nifedipine. At 18:30, patient's blood pressure was taken, blood pressure 228/133. Patient received nifedipine. Since then, patient has refused to have her blood pressure taken, patient becomes very violent. We will attempt to give patient's medication to get her sleepy since it is getting close to her bedtime, and we will attempt getting her blood pressure again. pt's BP was checked later and came down to 160s systolic. she was felt to be appropriate for admission to [facility] and so was. once on [facility] she again accepted medications. while seated she appeared to have a syncopal episode. her systolic BP was recorded in the 80's and she was transferred to medicine within hours of arriving on [facility] floor. pt was seen briefly in the POD by this fiction writer for the purpose of section 12b examination. history is otherwise taken from chart. Past Psychiatric History: [facility] client, kev's order and guardian. Schizoaffective D/O Dx per [facility]: [facility], [facility], [place] fall 2015. outpt: [facility] Medical Evaluation Reviewed: Yes [facility] Medical History (Updated 12/26/24 @ 23:34 by ISAURA Castillo) Schizophrenia Diabetes 1.5, managed as type 2 Schatzki's ring Glaucoma GERD (gastroesophageal reflux disease) Hyperlipidemia Bipolar 1 disorder Surgical History History of cataract surgery History of total abdominal hysterectomy History of section Family History: unknown Social History: lives in her own apartment. 2 adult children. born in [place]. moved to [place] in 1997. Substance History: none relevant Trauma History: unknown Diagnostics Vital Signs (24Hr): Vital Signs - 24 hr 12/26/24 06:30 12/26/24 12:19 12/26/24 14:17 Temperature 97.7 F Pulse Rate 112 H 110 H Respiratory Rate 18 16 18 Blood Pressure 164/74 H Pulse Oximetry 96 99 Oxygen Delivery Method Room Air Room Air 12/26/24 20:37 12/26/24 22:27 Temperature Pulse Rate 63 Respiratory Rate Blood Pressure 142/93 H 84/50 L Pulse Oximetry Oxygen Delivery Method BMI result Body Mass Index 35.1 Labs Labs: Laboratory Results - last 48 hr 12/25/24 12/26/24 14:39 22:24 POC Glucose 161 H Urine Color Yellow Urine Appearance Clear Urine pH 6.0 Ur Specific Momence <= 1.005 Urine Protein 30 (1+) H Urine Glucose (UA) Negative Urine Ketones Negative Urine Blood Negative Urine Nitrite Negative Ur Leukocyte Esterase Negative Urine RBC 0-2 Urine WBC 0-5 Ur Squamous Epith Cells 0-2 Urine Bacteria None Seen Hyaline Casts 0-2 Urine Opiates Screen Not Detected Ur Buprenorphine Scrn Not Detected Ur Oxycodone Screen Not Detected Urine Methadone Screen Not Detected Urine Fentanyl Screen Not Detected Ur Barbiturates Screen Not Detected Ur Phencyclidine Scrn Not Detected Ur Amphetamines Screen Not Detected U Benzodiazepines Scrn Not Detected Urine Cocaine Screen Not Detected U Marijuana (THC) Screen Not Detected Meds/Allergies Meds Home Medications ?Medication ?Instructions ?Recorded ?Confirmed ?Type olanzapine 5 mg disintegrating 5 mg DAILY 12/27/24 12/27/24 History tablet Allergies Allergies Allergy/AdvReac Type Severity Reaction Status Date / Time blueberry [Blueberry] Allergy Severe SWELLING Verified 12/25/24 13:30 lisinopril Allergy Intermediate cough Verified 12/25/24 13:30 mushroom Allergy Intermediate SWELLING Verified 12/25/24 13:30 shellfish derived Allergy Unknown UNKNOWN Verified 12/25/24 13:30 [SHELLFISH DERIVED] thioridazine Allergy Unknown Unknown Verified 12/25/24 13:30 tomato [TOMATO] Allergy Unknown UNKNOWN Verified 12/25/24 13:30 CHOCOLATE Allergy Intermediate ITCHING Uncoded 09/04/24 12:35 From MELLARIL Allergy Intermediate SHORTNESS Uncoded 09/04/24 12:35 OF BREATH From THORAZINE Allergy Intermediate SHORTNESS Uncoded 09/04/24 12:35 OF BREATH Mental Status Exam Mental Status Exam Narrative: hospital attire, adequately groomed. cooperative with staff. no PMA/PMR. hyperverbal. thoughts disorganized. affect constricted, hyper-intense. mood not assessed. SI/HI/AVH not assessed. Assessment & Plan Assessment & Plan (1) Schizophrenia: Status: Acute Qualifiers: Schizophrenia type: undifferentiated schizophrenia Qualified Code(s): F20.3 - Undifferentiated schizophrenia Code(s): F20.9 - Schizophrenia, unspecified Plan discharge to medicine Patient educated on: other Reason for continued inpatient stay Substantial Risk for: inability to function Statement Statement: I have reviewed the history and physical and performed a pertinent examination on my patient. No changes have occurred unless specified. If the History and Physical was not performed prior to admission, the Hospitalist's service will be consulted for completing the admission physical. Time Spent With Patient Time: Total time managing care of this patient today __55__ minutes.
--- NOTE | 2024-12-27 17:12 | P.DS_ITS ---
DS: Providers Provider Date of Service: 12/26/24 Date of admission: 12/26/24 12:28 Date of discharge: 12/26/24 Primary care physician: Bradley Zimmer MD DS: Diagnosis Discharge Diagnosis (1) Schizophrenia: Status: Acute DS: Medications Discharge Medications Home Medications: Home Medications ?Medication ?Instructions ?Recorded ?Confirmed olanzapine 5 mg disintegrating 5 mg DAILY 12/27/24 12/27/24 tablet Previous Rx's ?Medication ?Instructions ?Recorded divalproex 250 mg tablet,delayed 250 mg PO BEDTIME 30 days #30 tabs 10/05/24 release docusate sodium 100 mg capsule 100 mg PO DAILY PRN constipation 10/05/24 30 days #30 caps olanzapine 20 mg disintegrating 20 mg PO BEDTIME #30 tabs 10/05/24 tablet omeprazole 20 mg capsule,delayed 20 mg PO DAILY@0630 #90 caps 10/05/24 release peg [id number] 1 2 drp ophthalmic (eye) Q4H PRN Dry 10/05/24 %-0.2 %-0.2 % eye drops Eyes 30 days #15 mL (Artificial Tears ([id number])) atorvastatin 80 mg tablet 80 mg PO DAILY #90 tabs 11/08/24 acetaminophen 325 mg tablet 650 mg (2 x 325 mg) PO Q6H PRN 12/26/24 Headache/Pain, Scale 1-10 #0 tabs trazodone 50 mg tablet 50 mg PO BEDTIME MRX1 PRN Insomnia 12/26/24 #0 tabs Mental Status Exam Mental Status Exam Narrative: hospital attire, adequately groomed. cooperative with staff. no PMA/PMR. hyperverbal. thoughts disorganized. affect constricted, hyper-intense. mood not assessed. SI/HI/AVH not assessed. Data Data Completed and Pending Completed studies during hospitalization [Text1]: 12/25/24 12/26/24 14:39 22:24 POC Glucose 161 H Urine Color Yellow Urine Appearance Clear Urine pH 6.0 Ur Specific [place] <= 1.005 Urine Protein 30 (1+) H Urine Glucose (UA) Negative Urine Ketones Negative Urine Blood Negative Urine Nitrite Negative Ur Leukocyte Esterase Negative Urine RBC 0-2 Urine WBC 0-5 Ur Squamous Epith Cells 0-2 Urine Bacteria None Seen Hyaline Casts 0-2 Urine Opiates Screen Not Detected Ur Buprenorphine Scrn Not Detected Ur Oxycodone Screen Not Detected Urine Methadone Screen Not Detected Urine Fentanyl Screen Not Detected Ur Barbiturates Screen Not Detected Ur Phencyclidine Scrn Not Detected Ur Amphetamines Screen Not Detected U Benzodiazepines Scrn Not Detected Urine Cocaine Screen Not Detected U Marijuana (THC) Screen Not Detected DS: Summary Hospital Course Hospital Course: per 12/26 admission note: HPI Narrative: per 12/25 ED note: HPI Narrative: 74 year old female with PMHx of schizophrenia, HTN, and HLD presents to the ED by ambulance as a section 12 with PD. EMS reports patient has not been med compliant. Patient is agitated and refusing to narrate or answer any questions. She is not taking her medicaitons. She will not answer any questions. S12 from [facility] plan for inpatient. Hx of same in past Course Course Narrative: 12/25/24 317pm patinet refusing BP medications and oral zyprexa at this time given her HTN I am concerned for serious issues I will give IM medications in order to better treat her and start her on therapy so I can hopefully start giving her oral medications. She is agitated at times up and down. Reevaluation(s) Reevaluation #1: signed out to Dr. Tee pending monitoring and lab results Reevaluation #2: doing better Reevaluation #3: Time: 07:59 Date: 12/26/24 Provider: Paulino Lopez MD Patient in physician observation for psychiatric evaluation.? No acute events reported overnight. No current complaints. VS stable.? Patient is pending CARE team evaluation. Will continue to monitor. Additional Reevaluation(s): 12/26/2024 13:17 Patient will be admitted to psych unit this end of the observation status Medical Decision Making MDM Narrative: 74 year old female with PMHx of schizophrenia, HTN, and HLD presents to the ED by ambulance as a section 12 with PD. EMS reports patient has not been med compliant. Patients vital signs significant for elevated BP of 231/123. Patient is refusing to narrate, is delusional and refuses to answer questions. Patient is writhing on hospital bed and has withdrawn affect. Will obtain lab work including Depakote serum level, ETOH, UA drug screen. Will obtain EKG. Will start patient on 60mg nifedipine to manage hypertension. Will give 5mg zyprexa to manage schizophrenia and anxiety while in the department. Care team consult placed. Physician observation started at 14:23, currently awaiting CARE team consult. I received sign-out from my colleague Dr. Archibald I was informed by the patient's nurses the patient's blood pressure is elevated. Patient does have history of hypertension. However, patient is very anxious restless when they take the blood pressure, unclear if this is a reliable blood pressure. Patient does have history of hypertension, takes nifedipine. At 18:30, patient's blood pressure was taken, blood pressure 228/133. Patient received nifedipine. Since then, patient has refused to have her blood pressure taken, patient becomes very violent. We will attempt to give patient's medication to get her sleepy since it is gett ing close to her bedtime, and we will attempt getting her blood pressure again. pt's BP was checked later and came down to 160s systolic. she was felt to be appropriate for admission to [facility] and so was. once on [facility] she again accepted medications. while seated she appeared to have a syncopal episode. her systolic BP was recorded in the 80's and she was transferred to medicine within hours of arriving on [facility] floor. pt was seen briefly in the POD by this development writer for the purpose of section 12b examination. history is otherwise taken from chart. Past Psychiatric History: [facility] client, kev's order and guardian. Schizoaffective D/O Dx per [facility]osps: [facility] in 1988, [facility] [place], [facility] [place]. outpt: [facility] Medical Evaluation Reviewed: Yes [facility] Medical History (Updated 12/26/24 @ 23:34 by Rosita Riley, HEMATOLOGY TECHNOLOGIST-) Schizophrenia Diabetes 1.5, managed as type 2 Schatzki's ring Glaucoma GERD (gastroesophageal reflux disease) Hyperlipidemia Bipolar 1 disorder Surgical History History of cataract surgery History of total abdominal hysterectomy History of section Family History: unknown Social History: lives in her own apartment. 2 adult children. born in [place]. moved to [place] in 1997. Substance History: none relevant Trauma History: unknown Assessment & Plan (1) Schizophrenia: Status: Acute Qualifiers: Schizophrenia type: undifferentiated schizophrenia Qualified Code(s): F20.3 - Undifferentiated schizophrenia Code(s): F20.9 - Schizophrenia, unspecified Plan discharge to medicine Time Spent with Patient Time attestation: Total time managing care of this patient today __55__ minutes. Discharge Plan Discharge Anticipated Discharge Date/Time: 12/26/24 22:31 Patient Disposition: er [facility] Hospital Discharge Diagnosis: schizophrenia Referrals: Goran,Bradley Farris MD [Primary Care Provider] - 1 Week Discharge Medications: New acetaminophen 325 mg Tablet 650 mg PO Q6H PRN (Reason: Headache/Pain, Scale 1-10) Qty: 0 0RF trazodone 50 mg Tablet 50 mg PO BEDTIME MRX1 PRN (Reason: Insomnia) Qty: 0 0RF Continued atorvastatin 80 mg tablet 80 mg PO DAILY Qty: 90 0RF olanzapine 20 mg tablet,disintegrating 20 mg PO BEDTIME Qty: 30 1RF Artificial Tears([id number]-anhk-qksv) 1-0.2-0.2 % Drops 2 drp ophthalmic (eye) Q4H PRN (Reason: Dry Eyes) 30 Days Qty: 15 0RF divalproex 250 mg Tablet,Delayed Release (Dr/Ec) 250 mg PO BEDTIME 30 Days Qty: 30 0RF docusate sodium 100 mg capsule 100 mg PO DAILY PRN (Reason: constipation) 30 Days Qty: 30 0RF omeprazole 20 mg capsule,delayed release(DR/EC) 20 mg PO DAILY@0630 Qty: 90 3RF No Action olanzapine 5 mg tablet,disintegrating 5 mg DAILY Discharge Orders: Discharge Order (Routine); Ordered 12/26/24 Ordered By: Remy Galeano Diet: Advance to usual diet Activity on Discharge: transfer to medical floor Stand Alone Forms: Patient Portal Discharge page Print Language: Montenegrin Care Plan Goals: achieve medical stability Health Concerns: HTN Plan of Treatment: as per medical unit MD Assessment: medically and psychiatrically unstable Discharge Date/Time: 12/26/24 22:35
[2024-12-28 12:47] LABS: Glucose, Whole Blood 105 mg/dL (60-115)
== END 2024-12-26 22:35 | disposition short-term general hospital (02) | DRG 885 ==
LOC: HO.ED 12-26 13:16 → HO.PGERI 12-26 13:18
PROVIDERS: Emergency Medicine; Admitting Provider Psychiatry & Neurology Psychiatry; Emergency Provider Emergency Medicine; PCP Internal Medicine; Visit Provider Psychiatry & Neurology Psychiatry
DX: F29 Unspecified psychosis not due to a substance or known physiological condition (principal); Z87.891 Personal history of nicotine dependence; Z91.148 Patient's other noncompliance with medication regimen for other reason; Z79.899 Other long term (current) drug therapy
CPT/HCPCS: 80307; 81001; 82947; 93005; 99285; J2359; S9485

== ENCOUNTER 2024-12-26 12:28 | Outpatient (BNV) | payer OTHER, SELFPAY | END 2024-12-26 22:26 | PROVIDERS: Admitting Provider Psychiatry & Neurology Psychiatry; Emergency Provider Emergency Medicine; PCP Internal Medicine; Visit Provider Internal Medicine | DX: R94.31 Abnormal electrocardiogram [ECG] [EKG] (principal) | CPT/HCPCS: 93010 ==

== ENCOUNTER → 2024-12-26 12:28 | Outpatient (BNV) | payer OTHER, SELFPAY | PROVIDERS: Admitting Provider Psychiatry & Neurology Psychiatry; Emergency Provider Emergency Medicine; PCP Internal Medicine; Visit Provider Psychiatry & Neurology Psychiatry | DX: F20.3 Undifferentiated schizophrenia (principal) | CPT/HCPCS: 90792; 99499 ==

== ENCOUNTER 2024-12-26 23:05 | Outpatient (BNV) | payer OTHER, SELFPAY | END 2024-12-28 07:00 | PROVIDERS: Admitting Provider Psychiatry & Neurology Psychiatry; Visit Provider Internal Medicine | DX: I42.2 Other hypertrophic cardiomyopathy (principal); I51.89 Other ill-defined heart diseases; R41.89 Other symptoms and signs involving cognitive functions and awareness | CPT/HCPCS: 93306 ==

== ENCOUNTER 2024-12-26 23:05 | Observation (INO) | payer OTHER, SELFPAY ==
[2024-12-26 22:50] VITALS: BP 141/77; PULSE 83; RESP 20; O2SAT 97
--- NOTE | 2024-12-26 23:05 | P.HPHOSP_ITS ---
History of Present Illness Date of Service: 12/26/24 Attending physician on admission: Maren Mathew Chief Complaint: syncope Patient is a 74-year-old black female past medical history schizophrenia, hypertension, diabetes mellitus, hyperlipidemia, GERD, Schatzki's ring, glaucoma, hysterectomy and was seen during a rapid response for witnessed syncopal episode with no reported seizure activity. 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 Upon arrival patient was seen sitting in a chair with her head slumped over, respirations were 20, patient was diaphoretic and manual blood pressure was reading 89/46. Pt was not incontinent of urine or stool. Manual blood pressure was 90 systolic. Patient was groggy and minimally responsive. Blood glucose level was 140. Patient was moved immediately to a stretcher and became more arousable. Neuro exam was also reassuring. Lungs clear to auscultation bilaterally, patient noted to be regular with no murmur. No obvious edema on exam. Patient not willing to answer most questions asked during the interview. EKG was completed but not available for review by this fiction and nonfiction writer prose. Patient did receive her nifedipine and olanzapine this evening prior to tonight's event. Dr. Taylor present and decision was made to transfer patient to telemetry for observation noting the syncopal episode. Patient has further refused IV placement for IV fluids which were ordered. Blood pressure has improved to the 140 systolic. Upon review patient was seen by primary care in May of 2024 and was noted to have a syncopal episode back then which was felt to be secondary to her nifedipine and this was discontinued at that time. Patient does have a Jack order and guardian and is a [facility] client. Psychiatry consulted to help manage patient's psychiatric medications and care. Review of Systems 2 Review of Systems: Yes Unobtainable due to mental condition (Somnolent) [facility] Medical History (Updated 12/26/24 @ 23:34 by ISAURA Castillo) Schizophrenia Diabetes 1.5, managed as type 2 Schatzki's ring Glaucoma GERD (gastroesophageal reflux disease) Hyperlipidemia Bipolar 1 disorder Cognitive capacity: Somnolent unable to assess patient later found agitated refusing CT of the head Functional capacity: bed bound Family History Father No problems noted. Mother No problems noted. Surgical History History of cataract surgery History of total abdominal hysterectomy History of section Social History Household Members: None Household Members Other:: Per ED pt lives with one roommate in [facility] managed apartment. Housing: Apartment Housing Other:: patient refusing to respond Do you presently have visiting nurse or other home services: Yes Unable to assess alcohol history related to: Refusing to respond Alcohol intake: never Comment: 02/2024 Patient Tobacco Use Status: Former Tobacco user Tobacco use type: Cigarette e-Cigarette/Vaping Use: Never Used Second Hand Smoke Exposure: No Advance Directives: No Advance Directives Information Provided: Yes service: No Current occupational status: disabled Sexual orientation: Straight/Heterosexual Cognitive needs: Yes Hearing needs: Yes Vision needs: Yes Ebola Risk: Travel/Contact With Anyone From Affected Area/s: No Has Patient Experienced Ebola Symptoms: No Meds Allergies Allergy/AdvReac Type Severity Reaction Status Date / Time blueberry [Blueberry] Allergy Severe SWELLING Verified 12/25/24 13:30 lisinopril Allergy Intermediate cough Verified 12/25/24 13:30 mushroom Allergy Intermediate SWELLING Verified 12/25/24 13:30 shellfish derived Allergy Unknown UNKNOWN Verified 12/25/24 13:30 [SHELLFISH DERIVED] thioridazine Allergy Unknown Unknown Verified 12/25/24 13:30 tomato [TOMATO] Allergy Unknown UNKNOWN Verified 12/25/24 13:30 CHOCOLATE Allergy Intermediate ITCHING Uncoded 09/04/24 12:35 From MELLARIL Allergy Intermediate SHORTNESS Uncoded 09/04/24 12:35 OF BREATH From THORAZINE Allergy Intermediate SHORTNESS Uncoded 09/04/24 12:35 OF BREATH Active Medications: Current Medications Diazepam (Diazepam 10 Mg/2 Ml Cartridge) 5 mg IM STAT STA Stop: 12/26/24 23:03 Physical Exam 2 Vital Signs and Narrative: Pt mildly somnolent, not answering questions but opening eyes to verbal stimulation Neuro: unable to assess EYES: PERRLA ENT: hearing intact, lips moist, nares patent no epistaxis Cardiac: S1 S2 RRR, no murmur, no JVD, no edema in Lower ext Pulmonary: lungs dimiminshed B Abdominal: BS active in all 4 quadrants, no guarding, tenderness, rebounding, obese MSK: unable to assess : did not assess pt not incontinent of urine Extremities: no edema in lower extremities, PT and DP pulses palpable +2 Psych: unable to assess Skin: no open wounds noted on upper and lower ext, unable to assess backside Results Labs 12/26/24 23:59 12/27/24 00:38 Assessment and Plan (1) Syncope: Qualifiers: Syncope type: vasovagal syncope Qualified Code(s): R55 - Syncope and collapse Status: Acute Plan Patient is a 74-year-old black female past medical history schizophrenia, hypertension, diabetes mellitus, hyperlipidemia, GERD, Schatzki's ring, glaucoma, hysterectomy and seen for a rapid response related to syncope noting low blood pressure, diaphoresis and minimal response. Patient had just received her nifedipine and olanzapine. Syncopal episode was witnessed by staff. No hit to the head noted. Plan was for transfer to for telemetry, orthostatics, IV fluids and CT of the head. Syncope -orthostatics in the a.m. -telemetry -IV fluids (patient initially refused the IV) -CT of the head which patient was too agitated to tolerate is not currently indicated because patient did not make contact with her head and neuro exam is within normal limits. Can consider in the a.m. for any mental status changes or concerns. -stopping the nifedipine, correlating with the primary care note from May of 2024 where nifedipine was discontinued due to a previous syncopal episode -consider cardiology consultation if needed -consider echo -Labs ordered for AM, CBC diff, CMP, MG, TSH, A1C, LIpid panel (no recent labs noted) HTN -holding nifedipine noting low blood pressures resulting in a syncopal episode witnessed with no hit to the head -low-sodium diet -monitor blood pressures -check TSH and magnesium in the morning Gwh-lnlaubz-hmnkxmunt diabetic -A1c pending noting elevated blood sugars -sliding scale insulin -can consider metformin if needed HLD -checking LFTs in the a.m., if normal can resume atorvastatin 80 mg at HS -lipid panel pending GERD -omeprazole -avoid food triggers Obesity -patient not receptive to counseling at this time -encourage healthy lifestyle, exercise as tolerated Schizophrenia -psychiatric consultation to help manage medications and behaviors -patient does have a Jack, guardian -patient does not currently need a one-to-one on the medical floor DVT prophylaxis: Lovenox PPI prophylaxis: Omeprazole Full code status Quality Stroke Does the patient have a stroke diagnosis?: No Reason for No Anti-thrombotic by Day Two: N/A - Med Ordered VTE Prior VTE?: No VTE Risk Level:: Medical - moderate - high VTE Device Contraindication: Treatment Not Tolerated VTE Drug Contraindication: N/A - Med Ordered
--- OUTSIDE RECORDS SUMMARY | 2024-12-26 23:08 | XMS_ITS | Encounter Summary ---
Author Organization [facility] Address [address] [place] [address] Care Team Providers Care Asian Studies Professor Name Role Phone Unavailable Primary Care Provider Unavailabl e Encounter Details Date Type Department Care Team (Latest Contact Info) Description 10/30/2021 Abstract [facility] CONVERSIONS Dental, Provider, DDS Social History [...]
--- OUTSIDE RECORDS SUMMARY | 2024-12-26 23:09 | XMS_ITS | Clinical Summary ---
Author Organization [employer] [facility] Address [address] [place] [address] Care Team Providers Care Thiokol Operator Name Role Phone Unavailable Primary Care Provider [...]
--- OUTSIDE RECORDS SUMMARY | 2024-12-26 23:09 | XMS_ITS | Clinical Summary ---
Author Organization [facility] Address [address] [facility] [place] [address] Phone Care Team Providers Care Manager Oracle Database Name Role Phone Bradley Zimmer MD Primary Care Provider [phone] Allergies Active Allergy Reactions Criticality Noted Date [...] patient's age to complete this topic Insurance [facility] ([id number]) [facility] ([id number]) Care Teams Manager Oracle Database Relationship Specialty Start Date End Date Bradley Zimmer MD [facility] [place] [address] [place], [place] PCP - General Internal Medicine 12/23/20
[2024-12-26] MEDS: diazePAM 10 MG/2 ML CARTRIDGE 5 MG IM (23:12)
[2024-12-26 23:30] VITALS: BP 142/90; PULSE 102; RESP 20; TEMP 36.8; O2SAT 96
[2024-12-26 23:32] VITALS: BMI 33.3
[2024-12-27] VITALS: BP 142/90; PULSE 102; RESP 20; TEMP 36.8; O2SAT 96
[2024-12-27] MEDS: OLANZapine 10 MG VIAL IM (00:16)
[2024-12-27 00:48] LABS: MANUAL DIFF FLAG NO
[2024-12-27 00:51] LABS: Basophils Absolute Auto 0.1 X10*3/uL (0.0-0.2); Basophils Percent Auto 0.6 % (0-2); Eosinophils Absolute Auto 0.1 X10*3/uL (0.0-0.4); Eosinophils Percent Auto 1.3 % (0-4); Hematocrit 46.8 % (37.0-47.0); Imm Gran Abs Auto 0.01 X10*3/uL (0.00-0.03); Imm Gran Pct Auto 0.1 % (0.0-0.4); Lymphocytes Absolute Auto 3.8 X10*3/uL (1.2-4.9); Lymphocytes Percent Auto 42.7 % (20-40); Mean Corpuscular HGB Conc 34.2 g/dl (31.0-35.0); Mean Corpuscular Hemoglobin 30.5 pg (27.0-33.0); Mean Corpuscular Volume 89.1 fL (80.0-98.0); Mean Platelet Volume 9.7 fL (9.4-12.3); Monocytes Absolute Auto 0.5 X10*3/uL (0.1-1.2); Neutrophils Absolute Auto 4.4 x10*3/uL (2.0-8.3); Neutrophils Percent Auto 49.3 % (45-73); Platelet Count 193 X10*3/uL (160-400); Red Blood Count 5.25 X10*6/uL (4.20-5.50); Red Cell Distribution Width 13.7 % (11.0-16.0); White Blood Count 8.9 X10*3/uL (4.8-10.8)
[2024-12-27 00:52] LABS: Venous Blood Gas Refer to POC result
[2024-12-27 00:54] LABS: VBG Base Excess 4.6 mmol/L; VBG HCO3 27 mmol/L (22-26); VBG pCO2 36 mmHg; VBG pH 7.48 (7.32-7.43); VBG pO2 41 mmHg
[2024-12-27 01:04] LABS: Lactic Acid 1.2 mmol/L (0.5-2.0)
[2024-12-27 01:11] LABS: Cholesterol 268 mg/dL (<200); HDL Cholesterol 49 mg/dL (>40); LDL Cholesterol Calculated 188 mg/dL (<100); Magnesium 2.1 mg/dL (1.6-2.6); Triglycerides 158 mg/dL (<150); Troponin-I High Sensitivity 9.4 ng/L (<3.5-17.0)
[2024-12-27 01:17] LABS: Alanine Aminotransferase 22 U/L (0-31); Albumin Level 4.7 g/dL (3.5-5.0); Alkaline Phosphatase 90 U/L (39-117); Anion Gap 16 (12-20); Aspartate Amino Transferase 42 U/L (5-31); Bilirubin Total 0.9 mg/dL (0.0-1.0); Blood Urea Nitrogen 14 mg/dL (9-16); Calcium 10.5 mg/dL (8.4-10.2); Carbon Dioxide 25 mmol/L (22-29); Chloride 105 mmol/L (96-108); Creatinine Clr Calc Pharmacy 47.9; Estimated Glomerular Filt Rate 46; Glucose Random 146 mg/dL (60-115); Potassium 4.4 mmol/L (3.3-5.1); Sodium 142 mmol/L (135-145); Total Protein 8.1 g/dL (6.5-8.0)
[2024-12-27 01:18] LABS: B Type Natriuretic Peptide 23 pg/mL (<100)
[2024-12-27 01:26] LABS: Thyroid Stimulating Hormone 1.14 uIU/mL (0.32-4.0)
[2024-12-27 03:41] VITALS: BP 166/90; PULSE 103; RESP 18; TEMP 36.2; O2SAT 95
[2024-12-27 07:19] LABS: Glucose, Whole Blood 142 mg/dL (60-115)
[2024-12-27 07:29] VITALS: PULSE 87; RESP 20; TEMP 36.9; O2SAT 97
[2024-12-27 07:39] LABS: Estimated Average Glucose 120 mg/dL; Hemoglobin A1C 160.0009 umol/L; Hemoglobin A1c % 5.8 % (<6.0); Total Hemoglobin (HGBA1C) 4003.4153 umol/L
--- NOTE | 2024-12-27 08:42 | MHC.CM.PN ---
Addendum entered by Anushka Andrade 12/27/24 08:50: CM was unable to get the call to go through to [employer] @ [phone], to address IMM; CM will mail the original IMM, certified mail to [employer], and a copy will be placed on the chart. Original Note: Patient is admitted to the medical floor from [facility] and the goal is to return there pending Care Team Eval, once Patient is medically cleared for dc. CM has initiated and will follow for dc planning. Patient lives alone in a [facility] managed apartment, has [employer] for a [employer]OR and [facility] BID. David Ro is the Guardian and the IMM will be addressed with him over the phone @ [phone]. PCP is Dr. Bradley Zimmer and Patient may need assist with transport, pending final dc plan. Patient's Primary Outreach Contact is Kallie @ [phone].
--- NOTE | 2024-12-27 10:37 | PHA.MEDREC ---
Addendum entered by Wanda Bradshaw RPh 12/27/24 11:39: [facility] reviewed Original Note: Pharmacy Consult ? Medication Reconciliation Pharmacy has completed the medication reconciliation. Patient unable to engage in conversation regarding med rec and actively refusing to answer questions. Utilized patient's claim history form pharmacy to confirm meds. Of note, nifedipine last filled 10/05/24 for 30DS only, so was left off med rec.
[2024-12-27 10:53] LABS: Glucose, Whole Blood 176 mg/dL (60-115)
[2024-12-27] MEDS: OLANZapine 5 MG TABLET PO (11:19)
--- NOTE | 2024-12-27 12:37 | P.PNIM_ITS ---
Subjective Subjective Date of Service: 12/27/24 Interval History: Seen and examined this morning Initially patient would not wake up to talk to me, followed up a few hours later and she is awake, alert but difficult to understand Answers some questions sporadically but answers do not make sense She has been declining vital signs specifically blood pressure monitoring unable to obtain ROS due to lack of patient cooperation Physical Exam 2 Vital Signs: Vital Signs: Last Vital Signs Temp 98.5 F 12/27/24 07:29 Pulse 87 12/27/24 07:29 Resp 20 12/27/24 07:29 BP 166/90 H 12/27/24 03:41 Pulse Ox 97 12/27/24 07:29 O2 Del Method Room Air 12/27/24 07:29 BMI result Body Mass Index 33.3 Const: Other: exam limited; initially she told me not to touch her, she then did allow a brief cardiac exam General: comfortable, no acute distress, alert, awake and Physically active Nutritional Appearance: overweight Resp: Effort & Inspection: normal respiratory effort, able to speak in complete sentences, no respiratory distress and no use of accessory muscles Cardio: Rate: regular rate GI: Inspection: No distended Palpation (GI): Soft to palpation Objective Data Active Medications Acetaminophen (Acetaminophen 325 Mg Tablet) 650 mg PO Q6H PRN PRN Reason: Pain, Mild 1-3,fever,headache Artificial Tears (Artificial Tears 15 Ml Drops) 2 drop EYE-BOTH Q4H PRN PRN Reason: Dry Eyes Calcium Carbonate (Calcium Carbonate 750 Mg Tab.Chew) 750 mg PO Q4H PRN PRN Reason: Heartburn Dextrose (Dextrose 50 % 25 Gm/50 Ml Syringe) 25 gm IVPUSH Q15M PRN; Protocol PRN Reason: per Hypoglycemia Standing Ord. Divalproex Sodium (Divalproex Sodium 250 Mg Tablet.Dr) 250 mg PO BEDTIME EDIN Docusate Sodium (Docusate Sodium 100 Mg Capsule) 100 mg PO DAILY PRN PRN Reason: constipation Enoxaparin Sodium (Enoxaparin Sodium 40 Mg/0.4 Ml Syringe) 40 mg SUBCUT Q24H EDIN Last Admin: 12/27/24 10:12 Dose: Not Given Documented By: NATHAN Non-Admin Reason: Patient Refused Glucose (Glucose Gel 15 Gm Gel..Gram.) 15 gm PO Q15M PRN; Protocol PRN Reason: per Hypoglycemia Standing Ord. Insulin Human Lispro (Insulin Lispro 100 Unit/Ml 3 Ml Vial) 0 unit SUBCUT QIDACHS [facility]; Protocol Last Admin: 12/27/24 11:24 Dose: Not Given Documented By: NATHAN Non-Admin Reason: Patient Refused Magnesium Hydroxide (Milk Of Magnesia 30 Ml Oral.Susp) 30 ml PO DAILY PRN PRN Reason: Constipation Olanzapine (Olanzapine 5 Mg Tablet) 5 mg PO DAILY [facility] Last Admin: 12/27/24 11:19 Dose: 5 mg Documented By: NATHAN Olanzapine (Olanzapine Odt 10 Mg Tab.Rapdis) 20 mg TRANSLINGU BEDTIME EDIN Omeprazole (Omeprazole 20 Mg Capsule.Dr) 20 mg PO DAILY@0630 [facility] Senna (Sennosides 8.6 Mg Tablet) 17.2 mg PO BEDTIME EDIN Sodium Chloride (0.9 % Sodium Chloride Flush 3 Ml Syringe) 3 ml IVFLUSH QSHIFT [facility] Last Admin: 12/27/24 10:12 Dose: Not Given Documented By: ANTHAN Non-Admin Reason: no iv Trazodone HCl (Trazodone Hcl 50 Mg Tablet) 50 mg PO BEDTIME MRX1 PRN PRN Reason: Insomnia Labs 12/26/24 23:59 12/27/24 00:38 Labs: Laboratory Results - last 24 hr 12/26/24 12/27/24 12/27/24 23:59 00:38 00:50 MCV 89.1 MCH 30.5 MCHC 34.2 RDW 13.7 Plt Count 193 MPV 9.7 Immature Gran % (Auto) 0.1 Neut % (Auto) 49.3 Lymph % (Auto) 42.7 H Person % (Auto) 6.0 Eos % (Auto) 1.3 Baso % (Auto) 0.6 Lymph # (Auto) 3.8 Person # (Auto) 0.5 Eos # (Auto) 0.1 Baso # (Auto) 0.1 Abs Immat Gran (auto) 0.01 Absolute Neuts (auto) 4.4 Absolute Nucleated RBC 0.000 Nucleated RBC % (auto) 0.0 VBG pH 7.48 H VBG pCO2 36 VBG pO2 41 VBG HCO3 27 H VBG O2 Saturation 71.0 VBG Base Excess 4.6 Anion Gap 16 Estim Creat Clear Calc 47.9 Estimated GFR 46 POC Glucose Random Glucose 146 H Estimat Average Glucose 120 Hemoglobin A1c % 5.8 Lactic Acid 1.2 Calcium 10.5 H Magnesium 2.1 Total Bilirubin 0.9 AST 42 H ALT 22 Alkaline Phosphatase 90 B-Natriuretic Peptide 23 Total Protein 8.1 H Albumin 4.7 Triglycerides 158 H Cholesterol 268 H LDL Cholesterol, Calc 188 H HDL Cholesterol 49 TSH 1.14 12/27/24 12/27/24 07:11 10:47 MCV MCH MCHC RDW Plt Count MPV Immature Gran % (Auto) Neut % (Auto) Lymph % (Auto) Person % (Auto) Eos % (Auto) Baso % (Auto) Lymph # (Auto) Person # (Auto) Eos # (Auto) Baso # (Auto) Abs Immat Gran (auto) Absolute Neuts (auto) Absolute Nucleated RBC Nucleated RBC % (auto) VBG pH VBG pCO2 VBG pO2 VBG HCO3 VBG O2 Saturation VBG Base Excess Anion Gap Estim Creat Clear Calc Estimated GFR POC Glucose 142 H 176 H Random Glucose Estimat Average Glucose Hemoglobin A1c % Lactic Acid Calcium Magnesium Total Bilirubin AST ALT Alkaline Phosphatase B-Natriuretic Peptide Total Protein Albumin Triglycerides Cholesterol LDL Cholesterol, Calc HDL Cholesterol TSH Assessment and Plan (1) Schizophrenia: Status: Acute (2) Syncope: Status: Acute Plan This is a 74-year-old female with past medical history of schizophrenia, HTN, DM, HLD, GERD, Schatzki's ring, glaucoma, hysterectomy and seen for a rapid response related to syncope noting low blood pressure, diaphoresis and minimal response. Documented to have just received her nifedipine and olanzapine (discussed with pharmacy, they do not have an administration of nifedipine documented). Syncopal episode was witnessed by staff. No hit to the head noted. Syncope pt not-cooperative for orthostatics or blood pressure in general So far no adverse events on monitor s/p IVF Unclear if this is related at all to nifedipine, discussed with pharmacy and per their record last administration of nifedipine was December 25 at 18:30 although it was documented that she received prior to syncope event echo pending (unclear if pt will allow) HTN Received nifedipine in the emergency department Has not been feeling nifedipine regularly as an outpatient. Unclear if she has been taking at home Patient refusing blood pressure checks Fqg-xzcxkuy-jixmfzsur diabetic hba1c 5.8, can stop checking blood sugar HLD can resume atorvastatin on discharge GERD omeprazole Class 1 obesity patient not receptive to counseling at this time Schizophrenia psychiatric consultation to help manage medications and behaviors patient does have a Jack, guardian DVT prophylaxis: Lovenox PPI prophylaxis: Omeprazole Full code status Dispo-likely returned to inpatient psych when medically cleared Continue overnight telemetry monitoring Quality Stroke Does the patient have a stroke diagnosis?: No Reason for No Anti-thrombotic by Day Two: N/A - Med Ordered VTE Prior VTE?: No VTE Risk Level:: Medical - moderate - high VTE Device Contraindication: Treatment Not Tolerated VTE Drug Contraindication: N/A - Med Ordered
--- NOTE | 2024-12-27 15:37 | PC.NURSE ---
patient has refused vital signs throughout shift today, according to industrial court magistrate, patient ripped cuff off when she attempted to obtain blood pressure, refuses thermometer stating that 'I don't have a fever . provider notified
--- NOTE | 2024-12-27 17:14 | PM.PSYCN ---
History of Present Illness Date of Service: 12/27/2024 Chief Complaint: Syncope Reason for Consult: psychiatric medication management HPI Narrative: per 12/26 hospitalist admission note: Chief Complaint: syncope Patient is a 74-year-old black female past medical history schizophrenia, hypertension, diabetes mellitus, hyperlipidemia, GERD, Schatzki's ring, glaucoma, hysterectomy and was seen during a rapid response for witnessed syncopal episode with no reported seizure activity. 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 Upon arrival patient was seen sitting in a chair with her head slumped over, respirations were 20, patient was diaphoretic and manual blood pressure was reading 89/46. Pt was not incontinent of urine or stool. Manual blood pressure was 90 systolic. Patient was groggy and minimally responsive. Blood glucose level was 140. Patient was moved immediately to a stretcher and became more arousable. Neuro exam was also reassuring. Lungs clear to auscultation bilaterally, patient noted to be regular with no murmur. No obvious edema on exam. Patient not willing to answer most questions asked during the interview. EKG was completed but not available for review by this medical underwriter. Patient did receive her nifedipine and olanzapine this evening prior to tonight's event. Dr. Taylor present and decision was made to transfer patient to telemetry for observation noting the syncopal episode. Patient has further refused IV placement for IV fluids which were ordered. Blood pressure has improved to the 140 systolic. Upon review patient was seen by primary care in May of 2024 and was noted to have a syncopal episode back then which was felt to be secondary to her nifedipine and this was discontinued at that time. Patient does have a Jack order and guardian and is a [facility] client. Psychiatry consulted to help manage patient's psychiatric medications and care. pt was seen in her room on the medical floor. she was sleeping supine in her bed and was rousable to loud voice. she was edentulous and difficult to understand as a result. some of her responses seemed they might have been relevant to the questions, while others were non-sequiturs, such as on being asked her mood, her reply was, my knees aren't bothering me so much as my ankles. she went on to discuss swelling in her ankles. she requested discharge to home so she she could be comfy. she did not appear to appreciate the reasons for her being in the hospital. she was generally unable to cogently answer questions. encouraged her to comply with medication as prescribed. Past Psychiatric History: [facility] client, kev's order and guardian. Schizoaffective D/O Dx per [facility] [place]os[place] [facility] [place], [facility] [place], [facility] fall 2015. outpt: [facility] Medical History (Updated 12/26/24 @ 23:34 by ISAURA Castillo) Schizophrenia Diabetes 1.5, managed as type 2 Schatzki's ring Glaucoma GERD (gastroesophageal reflux disease) Hyperlipidemia Bipolar 1 disorder Surgical History History of cataract surgery History of total abdominal hysterectomy History of section Family History: unknown Social History: lives in her own apartment. 2 adult children. born in [place]. moved to [place] in 1997. Substance History: none relevant Trauma History: unknown Diagnostics Vital Signs (24Hr): Vital Signs - 24 hr 12/26/24 22:50 12/26/24 23:30 12/27/24 00:00 Temperature 98.3 F 98.3 F Pulse Rate 83 102 H 102 H Respiratory Rate 20 20 20 Blood Pressure 141/77 H 142/90 H 142/90 H Pulse Oximetry 97 96 96 Oxygen Delivery Method Room Air Room Air Room Air 12/27/24 03:41 12/27/24 07:29 Temperature 97.2 F 98.5 F Pulse Rate 103 H 87 Respiratory Rate 18 20 Blood Pressure 166/90 H Pulse Oximetry 95 97 Oxygen Delivery Method Room Air Room Air BMI result Body Mass Index 33.3 Labs 12/26/24 23:59 12/27/24 00:38 Labs: Laboratory Results - last 48 hr 12/26/24 12/27/24 12/27/24 23:59 00:38 00:50 WBC 8.9 RBC 5.25 Hgb 16.0 Hct 46.8 MCV 89.1 MCH 30.5 MCHC 34.2 RDW 13.7 Plt Count 193 MPV 9.7 Immature Gran % (Auto) 0.1 Neut % (Auto) 49.3 Lymph % (Auto) 42.7 H [place] % (Auto) 6.0 Eos % (Auto) 1.3 Baso % (Auto) 0.6 Lymph # (Auto) 3.8 [place] # (Auto) 0.5 Eos # (Auto) 0.1 Baso # (Auto) 0.1 Abs Immat Gran (auto) 0.01 Absolute Neuts (auto) 4.4 Absolute Nucleated RBC 0.000 Nucleated RBC % (auto) 0.0 VBG pH 7.48 H VBG pCO2 36 VBG pO2 41 VBG HCO3 27 H VBG O2 Saturation 71.0 VBG Base Excess 4.6 Sodium 142 Potassium 4.4 Chloride 105 Carbon Dioxide 25 Anion Gap 16 BUN 14 Creatinine 1.15 Estim Creat Clear Calc 47.9 Estimated GFR 46 POC Glucose Random Glucose 146 H Estimat Average Glucose 120 Hemoglobin A1c % 5.8 Lactic Acid 1.2 Calcium 10.5 H Magnesium 2.1 Total Bilirubin 0.9 AST 42 H ALT 22 Alkaline Phosphatase 90 Troponin I High Sens 9.4 D B-Natriuretic Peptide 23 Total Protein 8.1 H Albumin 4.7 Triglycerides 158 H Cholesterol 268 H LDL Cholesterol, Calc 188 H HDL Cholesterol 49 TSH 1.14 12/27/24 12/27/24 07:11 10:47 WBC RBC Hgb Hct MCV MCH MCHC RDW Plt Count MPV Immature Gran % (Auto) Neut % (Auto) Lymph % (Auto) [place] % (Auto) Eos % (Auto) Baso % (Auto) Lymph # (Auto) [place] # (Auto) Eos # (Auto) Baso # (Auto) Abs Immat Gran (auto) Absolute Neuts (auto) Absolute Nucleated RBC Nucleated RBC % (auto) VBG pH VBG pCO2 VBG pO2 VBG HCO3 VBG O2 Saturation VBG Base Excess Sodium Potassium Chloride Carbon Dioxide Anion Gap BUN Creatinine Estim Creat Clear Calc Estimated GFR POC Glucose 142 H 176 H Random Glucose Estimat Average Glucose Hemoglobin A1c % Lactic Acid Calcium Magnesium Total Bilirubin AST ALT Alkaline Phosphatase Troponin I High Sens B-Natriuretic Peptide Total Protein Albumin Triglycerides Cholesterol LDL Cholesterol, Calc HDL Cholesterol TSH Mental Status Exam Mental Status Exam Narrative: hospital attire, adequately groomed. not cooperative with staff. no PMA/PMR. hyperverbal. thoughts disorganized. affect constricted, hyper-intense. mood my knees aren't bothering me so much as my ankles. SI/HI/AVH not assessed. Medications Medications Current Medications Acetaminophen (Acetaminophen 325 Mg Tablet) 650 mg PO Q6H PRN PRN Reason: Pain, Mild 1-3,fever,headache Artificial Tears (Artificial Tears 15 Ml Drops) 2 drop EYE-BOTH Q4H PRN PRN Reason: Dry Eyes Calcium Carbonate (Calcium Carbonate 750 Mg Tab.Chew) 750 mg PO Q4H PRN PRN Reason: Heartburn Dextrose (Dextrose 50 % 25 Gm/50 Ml Syringe) 25 gm IVPUSH Q15M PRN; Protocol PRN Reason: per Hypoglycemia Standing Ord. Divalproex Sodium (Divalproex Sodium 250 Mg Tablet.) 250 mg PO BEDTIME [facility] Docusate Sodium (Docusate Sodium 100 Mg Capsule) 100 mg PO DAILY PRN PRN Reason: constipation Enoxaparin Sodium (Enoxaparin Sodium 40 Mg/0.4 Ml Syringe) 40 mg SUBCUT Q24H [facility] Last Admin: 12/27/24 10:12 Dose: Not Given Glucose (Glucose Gel 15 Gm Gel..Gram.) 15 gm PO Q15M PRN; Protocol PRN Reason: per Hypoglycemia Standing Ord. Magnesium Hydroxide (Milk Of Magnesia 30 Ml Oral.Susp) 30 ml PO DAILY PRN PRN Reason: Constipation Olanzapine (Olanzapine 5 Mg Tablet) 5 mg PO DAILY [facility] Last Admin: 12/27/24 11:19 Dose: 5 mg Olanzapine (Olanzapine Odt 10 Mg Tab.Rapdis) 20 mg TRANSLINGU BEDTIME [facility] Omeprazole (Omeprazole 20 Mg Capsule.) 20 mg PO DAILY@0630 [facility] Senna (Sennosides 8.6 Mg Tablet) 17.2 mg PO BEDTIME [facility] Sodium Chloride (0.9 % Sodium Chloride Flush 3 Ml Syringe) 3 ml IVFLUSH QSHIFT [facility] Last Admin: 12/27/24 10:12 Dose: Not Given Trazodone HCl (Trazodone Hcl 50 Mg Tablet) 50 mg PO BEDTIME MRX1 PRN PRN Reason: Insomnia Allergies Allergies Allergy/AdvReac Type Severity Reaction Status Date / Time blueberry [Blueberry] Allergy Severe SWELLING Verified 12/25/24 13:30 lisinopril Allergy Intermediate cough Verified 12/25/24 13:30 mushroom Allergy Intermediate SWELLING Verified 12/25/24 13:30 shellfish derived Allergy Unknown UNKNOWN Verified 12/25/24 13:30 [SHELLFISH DERIVED] thioridazine Allergy Unknown Unknown Verified 12/25/24 13:30 tomato [TOMATO] Allergy Unknown UNKNOWN Verified 12/25/24 13:30 CHOCOLATE Allergy Intermediate ITCHING Uncoded 09/04/24 12:35 From MELLARIL Allergy Intermediate SHORTNESS Uncoded 09/04/24 12:35 OF BREATH From THORAZINE Allergy Intermediate SHORTNESS Uncoded 09/04/24 12:35 OF BREATH Assessment & Plan Assessment & Plan (1) Schizophrenia: Qualifiers: Schizophrenia type: undifferentiated schizophrenia Qualified Code(s): F20.3 - Undifferentiated schizophrenia Status: Acute Code(s): F20.9 - Schizophrenia, unspecified (2) Syncope: Qualifiers: Syncope type: vasovagal syncope Qualified Code(s): R55 - Syncope and collapse Status: Acute Code(s): R55 - Syncope and collapse Plan encourage compliance with psychiatric medication as prescribed and as contained in kev's order (now ). kev's order, as it is, does not appear to be enforceable via IM back-up, as PO route is expressly mentioned to the exclusion of any other route. may give zyprexa 2.5-5 mg IM and ativan 1 mg IM for agitation threatening safety. return to [facility] once medically stabilized. Total time managing care of this patient today __35__ minutes.
[2024-12-27 20:37] VITALS: BP 145/74; PULSE 93; RESP 18; TEMP 36.4; O2SAT 96
[2024-12-27] MEDS: Sennosides 8.6 MG TABLET 17.2 MG PO (20:48)
[2024-12-27] MEDS: OLANZapine ODT 10 MG TAB.RAPDIS 20 MG TRANSLINGU (20:48)
[2024-12-28] VITALS: PULSE 96; RESP 20; TEMP 36.6
--- NOTE | 2024-12-28 07:00 | CA_ITS ---
Transthoracic Echocardiogram Patient (Last, First, Middle): Reji Smith, Gender: Female Date of : 1950 Age: 74 Procedure Date: 12/28/2024 Procedure Type: Transthoracic Echocardiogram Location: [facility] Height: 167.64 cm Weight: 93.44 kg BSA: 2.03 m2 Heart Rate: bpm BP: 145 / 74 mmHg Primer [employer] Operator: Referring MD: Marley MACIEL Symptoms: syncope Study Quality: Technically Difficult, no IV access ECG Rhythm: Sinus Conclusions: - The left ventricular systolic function is hyperdynamic. The visually estimated ejection fraction is >70%. - [id number] concentric left ventricular hypertrophy. - No obvious valvular pathology seen on this study. - Patient confused and unco-operative (per tech). Findings Procedure Information The study quality is limited by an uncooperative patient. Left Ventricle Normal left ventricular cavity size. The left ventricular systolic function is hyperdynamic. The visually estimated ejection fraction is >70%. There is no evidence of regional wall motion abnormalities. Evidence suggests grade I (mild) diastolic dysfunction. Nkqpuzsl-rg-[id number] concentric left ventricular hypertrophy. Right Ventricle Normal right ventricular cavity size and systolic function. Atria Both atria are normal in size. Aortic Valve The aortic valve was not well visualized. There is no aortic valve stenosis. There is no aortic valve regurgitation. Mitral Valve The mitral valve appears normal. There is no mitral valve regurgitation. There is no mitral valve stenosis. Pulmonic Valve The pulmonic valve was not well visualized. Tricuspid Valve There is trace tricuspid valve regurgitation. There is no evidence of pulmonary hypertension. Great Vessels The asc aorta is normal in size. Venous The inferior vena cava was not well visualized. Pericardium/Pleural There is no evidence of pericardial effusion. Prior Study Comparison No prior study available for comparison. Recommendations, Care & Conclusions No obvious valvular pathology seen on this study. Measurements 2D Linear Measurements IVSd: 1.47 0.6-0.9/0.6-1.0 cm LVIDd: 2.65 3.9-5.3/4.2-5.9 cm LVIDd Index: 1.31 2.4-3.2/2.2-3.1 cm/m2 LVIDs: 1.49 2.0-3.6 cm LVPWd: 1.47 0.7-1.1 cm LA Diam: 3.90 2.7-3.8/3.0-4.0 cm LAIDs Index: 1.92 1.5-2.3 cm/m2 LV Mass: 162.31 67-162/88-224 g LV Mass Index: 79.96 43-95/49-115 g/m2 LVOT Diam: 2.30 3.0+(-)1.3 cm 2D Systolic Function EF 4C: 73.90 >55% EF 2C: 68.90 >55% EF BiP: 71.50 >55% Mitral Valve MV Pk E: 0.46 MV PK A: 0.77 MV Decel Time: 137.00 E/A: 0.60 E'Lateral: 6.53 E'Medial: 3.37 E/E' Med: 13.60 E/E' Lat: 7.00 PHT: 40.00 MVA PHT: 5.50 Decel [place]: 3.34 Aortic Valve AoV Pk Donaldo: 1.21 AoV Mn Donaldo: 0.82 AoV VTI: 0.18 AoV Pk Grad: 6.00 Aov Mn Grad: 3.00 KARISSA Cont.VTI: 2.94 LVOT LVOT Pk Donaldo: 0.80 LVOT Mn Donaldo: 0.52 LVOT VTI: 0.13 LVOT Pk Grad: 3.00 LVOT Mn Grad: 1.00 LVOT Diam: 2.30 LVOT Area: 4.15 Diastolic Function MV Pk E: 0.46 MV Pk A: 0.77 E/A: 0.60 E'Medial: 3.37 E/E' Med: 13.60 E' Laterial: 6.53 E/E' Lat: 7.00 Right Ventricle TAPSE (mm): 27.90 TVS' Donaldo: 23.00 Tricuspid Valve TR Pk Donaldo: 1.56 TR Pk Grad: 10.00 Great Vessels Aorta Sinus of Valsalva: 2.70 2.0-3.5 cm Ao Asc: 3.20 2.1-3.4 cm Updated in Other Vendor System with Status of Final Cas Allen MD electronically signed on 12/28/2024 12:35:26 PM with status of Final
[2024-12-28 11:28] VITALS: BP 146/76
--- NOTE | 2024-12-28 11:31 | P.PNIM_ITS ---
Subjective Subjective Date of Service: 12/28/24 Interval History: Seen and examined this morning Answers some questions sporadically but answers do not make sense She has been declining vital signs specifically blood pressure monitoring Physical Exam 2 Vital Signs: Vital Signs: Last Vital Signs Temp 97.8 F 12/28/24 00:00 Pulse 96 12/28/24 00:00 Resp 20 12/28/24 00:00 BP 145/74 H 12/27/24 20:37 Pulse Ox 96 12/27/24 20:37 O2 Del Method Room Air 12/27/24 20:37 BMI result Body Mass Index 33.3 Declined Objective Data Active Medications Acetaminophen (Acetaminophen 325 Mg Tablet) 650 mg PO Q6H PRN PRN Reason: Pain, Mild 1-3,fever,headache Artificial Tears (Artificial Tears 15 Ml Drops) 2 drop EYE-BOTH Q4H PRN PRN Reason: Dry Eyes Calcium Carbonate (Calcium Carbonate 750 Mg Tab.Chew) 750 mg PO Q4H PRN PRN Reason: Heartburn Dextrose (Dextrose 50 % 25 Gm/50 Ml Syringe) 25 gm IVPUSH Q15M PRN; Protocol PRN Reason: per Hypoglycemia Standing Ord. Divalproex Sodium (Divalproex Sodium 250 Mg Tablet.Dr) 250 mg PO BEDTIME [facility] Last Admin: 12/27/24 21:56 Dose: Not Given Documented By: ASHU Non-Admin Reason: Patient Refused Docusate Sodium (Docusate Sodium 100 Mg Capsule) 100 mg PO DAILY PRN PRN Reason: constipation Enoxaparin Sodium (Enoxaparin Sodium 40 Mg/0.4 Ml Syringe) 40 mg SUBCUT Q24H [facility] Last Admin: 12/28/24 10:52 Dose: Not Given Documented By: JEREMY Non-Admin Reason: Patient Refused Glucose (Glucose Gel 15 Gm Gel..Gram.) 15 gm PO Q15M PRN; Protocol PRN Reason: per Hypoglycemia Standing Ord. Magnesium Hydroxide (Milk Of Magnesia 30 Ml Oral.Susp) 30 ml PO DAILY PRN PRN Reason: Constipation Olanzapine (Olanzapine 5 Mg Tablet) 5 mg PO DAILY [facility] Last Admin: 12/28/24 10:53 Dose: Not Given Documented By: JEREMY Non-Admin Reason: Patient Refused Olanzapine (Olanzapine Odt 10 Mg Tab.Rapdis) 20 mg TRANSLINGU BEDTIME [facility] Last Admin: 12/27/24 20:48 Dose: 20 mg Documented By: ASHU Omeprazole (Omeprazole 20 Mg Capsule.) 20 mg PO DAILY@0630 [facility] Last Admin: 12/28/24 05:39 Dose: Not Given Documented By: ASHU Non-Admin Reason: Patient Refused Senna (Sennosides 8.6 Mg Tablet) 17.2 mg PO BEDTIME [facility] Last Admin: 12/27/24 20:48 Dose: 17.2 mg Documented By: ASHU Sodium Chloride (0.9 % Sodium Chloride Flush 3 Ml Syringe) 3 ml IVFLUSH QSHIFT [facility] Last Admin: 12/28/24 10:52 Dose: Not Given Documented By: JEREMY Non-Admin Reason: No Access Trazodone HCl (Trazodone Hcl 50 Mg Tablet) 50 mg PO BEDTIME MRX1 PRN PRN Reason: Insomnia Labs 12/26/24 23:59 12/27/24 00:38 Assessment and Plan (1) Schizophrenia: Status: Acute (2) Syncope: Status: Acute Plan 74-year-old female with past medical history of schizophrenia, HTN, DM, HLD, GERD, Schatzki's ring, glaucoma, hysterectomy and seen for a rapid response related to syncope noting low blood pressure, diaphoresis and minimal response. Documented to have just received her nifedipine and olanzapine (discussed with pharmacy, they do not have an administration of nifedipine documented). Syncopal episode was witnessed by staff. No hit to the head noted. Syncope likely secondary to hypotension pt not-cooperative for orthostatics or blood pressure in general So far no adverse events on monitor s/p IVF nifedipine stopped echo pending HTN Received nifedipine in the emergency department Has not been feeling nifedipine regularly as an outpatient. Unclear if she has been taking at home Patient refusing blood pressure checks Ogv-slfspwo-xlkppwstq diabetic hba1c 5.8, can stop checking blood sugar HLD can resume atorvastatin on discharge GERD omeprazole Class 1 obesity patient not receptive to counseling at this time Schizophrenia psychiatric consultation to help manage medications and behaviors patient does have a Jack, guardian DVT prophylaxis: Lovenox PPI prophylaxis: Omeprazole Full code status Dispo-likely returned to inpatient psych when medically cleared Continue overnight telemetry monitoring Quality Stroke Does the patient have a stroke diagnosis?: No Reason for No Anti-thrombotic by Day Two: N/A - Med Ordered VTE Prior VTE?: No VTE Risk Level:: Medical - moderate - high VTE Device Contraindication: Treatment Not Tolerated VTE Drug Contraindication: N/A - Med Ordered
[2024-12-28 12:00] VITALS: PULSE 88; RESP 18; TEMP 36.8; O2SAT 94
--- NOTE | 2024-12-28 12:03 | PC.NURSE ---
pt refused am meds: Olanzpine and lovenox, refused orthostatoc BP , Petra SIM notifed
[2024-12-28 12:04] LABS: Glucose, Whole Blood 115 mg/dL (60-115)
--- NOTE | 2024-12-28 14:54 | MHC.CM.PN ---
Per rounds, pt. to have a Care team eval to help determine disposition.
[2024-12-28 16:39] LABS: Glucose, Whole Blood 196 mg/dL (60-115)
[2024-12-28 20:00] VITALS: BP 138/67; PULSE 84; RESP 16; TEMP 36.6; O2SAT 96
[2024-12-28] MEDS: Sennosides 8.6 MG TABLET 17.2 MG PO (21:01)
[2024-12-28] MEDS: Divalproex Sodium 250 MG TABLET.DR PO (21:02)
[2024-12-28] MEDS: OLANZapine ODT 10 MG TAB.RAPDIS 20 MG TRANSLINGU (21:02)
[2024-12-28] MEDS: traZODone HCL 50 MG TABLET PO (21:02)
--- NOTE | 2024-12-29 09:56 | HO.PM.IMPN ---
Subjective Subjective Date of Service: 12/29/24 Interval History: Seen and examined this morning Answers some questions sporadically but answers do not make sense She has been declining vital signs specifically blood pressure monitoring Physical Exam Vital Signs: Vital Signs: Last Vital Signs Temp 97.8 F 12/28/24 20:00 Pulse 84 12/28/24 20:00 Resp 16 12/28/24 20:00 BP 138/67 12/28/24 20:00 Pulse Ox 96 12/28/24 20:00 O2 Del Method Room Air 12/28/24 20:00 BMI result Body Mass Index 33.3 Appearing in no acute distress lung sounds are clear to auscultation heart regular rate rhythm, clear S1, S2 positive bowel sounds, abdomen is soft, nontender neuro patient is alert Objective Data Active Medications Acetaminophen (Acetaminophen 325 Mg Tablet) 650 mg PO Q6H PRN PRN Reason: Pain, Mild 1-3,fever,headache Artificial Tears (Artificial Tears 15 Ml Drops) 2 drop EYE-BOTH Q4H PRN PRN Reason: Dry Eyes Calcium Carbonate (Calcium Carbonate 750 Mg Tab.Chew) 750 mg PO Q4H PRN PRN Reason: Heartburn Dextrose (Dextrose 50 % 25 Gm/50 Ml Syringe) 25 gm IVPUSH Q15M PRN; Protocol PRN Reason: per Hypoglycemia Standing Ord. Divalproex Sodium (Divalproex Sodium 250 Mg Tablet.Dr) 250 mg PO BEDTIME [facility] Last Admin: 12/28/24 21:02 Dose: 250 mg Documented By: LONG Docusate Sodium (Docusate Sodium 100 Mg Capsule) 100 mg PO DAILY PRN PRN Reason: constipation Enoxaparin Sodium (Enoxaparin Sodium 40 Mg/0.4 Ml Syringe) 40 mg SUBCUT Q24H [facility] Last Admin: 12/28/24 10:52 Dose: Not Given Documented By: JEREMY Non-Admin Reason: Patient Refused Glucose (Glucose Gel 15 Gm Gel..Gram.) 15 gm PO Q15M PRN; Protocol PRN Reason: per Hypoglycemia Standing Ord. Magnesium Hydroxide (Milk Of Magnesia 30 Ml Oral.Susp) 30 ml PO DAILY PRN PRN Reason: Constipation Olanzapine (Olanzapine 5 Mg Tablet) 5 mg PO DAILY [facility] Last Admin: 12/28/24 10:53 Dose: Not Given Documented By: JEREMY Non-Admin Reason: Patient Refused Olanzapine (Olanzapine Odt 10 Mg Tab.Rapdis) 20 mg TRANSLINGU BEDTIME [facility] Last Admin: 12/28/24 21:02 Dose: 20 mg Documented By: LONG Omeprazole (Omeprazole 20 Mg Capsule.) 20 mg PO DAILY@0630 [facility] Last Admin: 12/29/24 06:00 Dose: Not Given Documented By: LONG Non-Admin Reason: Patient Refused Senna (Sennosides 8.6 Mg Tablet) 17.2 mg PO BEDTIME [facility] Last Admin: 12/28/24 21:01 Dose: 17.2 mg Documented By: LONG Sodium Chloride (0.9 % Sodium Chloride Flush 3 Ml Syringe) 3 ml IVFLUSH QSHIFT [facility] Last Admin: 12/29/24 02:10 Dose: Not Given Documented By: LONG Non-Admin Reason: no iv access Trazodone HCl (Trazodone Hcl 50 Mg Tablet) 50 mg PO BEDTIME MRX1 PRN PRN Reason: Insomnia Last Admin: 12/28/24 21:02 Dose: 50 mg Documented By: LONG Labs 12/26/24 23:59 12/27/24 00:38 Labs: Laboratory Results - last 24 hr 12/28/24 12/28/24 11:33 16:35 POC Glucose 115 196 H Assessment and Plan (1) Schizophrenia: Status: Acute (2) Syncope: Status: Acute Plan 74-year-old female with past medical history of schizophrenia, HTN, DM, HLD, GERD, Schatzki's ring, glaucoma, hysterectomy and seen for a rapid response related to syncope noting low blood pressure, diaphoresis and minimal response. Documented to have just received her nifedipine and olanzapine (discussed with pharmacy, they do not have an administration of nifedipine documented). Syncopal episode was witnessed by staff. No hit to the head noted. Schizophrenia psychiatric consultation to help manage medications and behaviors patient does have a Jack, guardian Syncope likely secondary to hypotension pt not-cooperative for orthostatics or blood pressure in general So far no adverse events on monitor s/p IVF nifedipine stopped echo ED 70% HTN Received nifedipine in the emergency department Has not been feeling nifedipine regularly as an outpatient. Unclear if she has been taking at home Patient refusing blood pressure checks Gse-bgdpakq-jmldhggwy diabetic hba1c 5.8, can stop checking blood sugar HLD can resume atorvastatin on discharge GERD omeprazole Class 1 obesity patient not receptive to counseling at this time DVT prophylaxis: Lovenox Full code status Dispo-likely returned to inpatient psych when medically cleared Continue overnight telemetry monitoring Quality Stroke Does the patient have a stroke diagnosis?: No Reason for No Anti-thrombotic by Day Two: N/A - Med Ordered VTE Prior VTE?: No VTE Risk Level:: Medical - moderate - high VTE Device Contraindication: Treatment Not Tolerated VTE Drug Contraindication: N/A - Med Ordered
[2024-12-29] MEDS: OLANZapine 5 MG TABLET PO (09:59)
[2024-12-29 12:00] VITALS: PULSE 84; RESP 18; TEMP 37; O2SAT 96
--- NOTE | 2024-12-29 13:11 | P.DS_ITS ---
DS: Providers Provider Date of Service: 12/29/24 Date of admission: 12/26/24 23:05 Date of discharge: 12/29/24 Primary care physician: Bradley Zimmer MD Consults: 12/26/24 23:11 Consult to Psychiatry Routine Consulting Provider: [facility] [place] [place] Psych Covering Reason for consultation: psychaitric medication mgmt 12/28/24 11:30 In CARE Team Crisis Consult Routine Comment: Reason for consultation: medically clear DS: Diagnosis Discharge Diagnosis (1) Schizophrenia: Status: Acute (2) Syncope: Status: Acute DS: Summary Hospital Course Hospital Course: Patient is a 74-year-old black female past medical history schizophrenia, hypertension, diabetes mellitus, hyperlipidemia, GERD, Schatzki's ring, glaucoma, hysterectomy and was seen during a rapid response for witnessed syncopal episode with no reported seizure activity. 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 Upon arrival patient was seen sitting in a chair with her head slumped over, respirations were 20, patient was diaphoretic and manual blood pressure was reading 89/46. Pt was not incontinent of urine or stool. Manual blood pressure was 90 systolic. Patient was groggy and minimally responsive. Blood glucose level was 140. Patient was moved immediately to a stretcher and became more arousable. Neuro exam was also reassuring. Lungs clear to auscultation bilaterally, patient noted to be regular with no murmur. No obvious edema on exam. Patient not willing to answer most questions asked during the interview. EKG was completed but not available for review by this keno writer. Patient did receive her nifedipine and olanzapine this evening prior to tonight's event. Dr. Taylor present and decision was made to transfer patient to telemetry for observation noting the syncopal episode. Patient has further refused IV placement for IV fluids which were ordered. Blood pressure has improved to the 140 systolic. Upon review patient was seen by primary care in May of 2024 and was noted to have a syncopal episode back then which was felt to be secondary to her nifedipine and this was discontinued at that time. Patient does have a Jack order and guardian and is a [facility] client. Psychiatry consulted to help manage patient's psychiatric medications and care. 74-year-old woman transferred from [facility] due to an episode of syncope likely secondary to hypotension. Patient was likely not taking her nifedipine and this was restarted and patient became hypotensive and this is likely the cause of her syncope. She did have echocardiogram which showed EF of 70% no acute valvular abnormalities. She received IV fluids while inpatient. She was mostly non cooperative regarding orthostatic blood pressures or blood pressures in general but patient has been sitting up in her bed without any complaints of dizziness or headache. So far blood pressure has remained stable and she will remain off any antihypertensive medications. This can be monitored and if at some point in the future she requires them this can be reassessed. Uza-jrotdmq-ghhveoary diabetes. Hemoglobin A1c 5.8, prediabetic Hyperlipidemia. Statin GERD. Omeprazole Class 1 obesity. BMI 33.3. Discussed importance of weight management as this may be contributing to worsening of other comorbidities Time Attestation Discharge Coordination Time (in mins): 40 Quality: Safe Use of Opioids Does Pt have an Active Cancer Diagnosis on the Problem List?: No Quality: Stroke Does the patient have a stroke diagnosis?: No Physical Exam Vital Signs: Vital Signs: Last Vital Signs Temp 98.6 F 12/29/24 12:00 Pulse 84 12/29/24 12:00 Resp 18 12/29/24 12:00 BP 138/67 12/28/24 20:00 Pulse Ox 96 12/29/24 12:00 O2 Del Method Room Air 12/29/24 12:00 BMI result Body Mass Index 33.3 Appearing in no acute distress head is normocephalic atraumatic eyes pupils are PERRLA sclera is anicteric mouth throat mucous membranes are intact and moist neck is supple no lymphadenopathy, no JVD noted lung sounds are clear to auscultation heart regular rate rhythm, clear S1, S2 positive bowel sounds, abdomen is soft, nontender neuro patient is alert DS: Data Data Completed and Pending Labs on day of discharge: Laboratory Results - last 24 hr 12/28/24 16:35 POC Glucose 196 H Discharge Plan Discharge Anticipated Discharge Date/Time: 12/29/24 13:05 Patient Disposition: Xfer Psychiatric Hosp Discharge Diagnosis: Schizophrenia Syncope Referrals: Po,Bradley Farris MD [Primary Care Provider] - 1 Week Discharge Medications: Continued atorvastatin 80 mg tablet 80 mg PO DAILY Qty: 90 0RF acetaminophen 325 mg Tablet 650 mg PO Q6H PRN (Reason: Headache/Pain, Scale 1-10) Qty: 0 0RF trazodone 50 mg Tablet 50 mg PO BEDTIME MRX1 PRN (Reason: Insomnia) Qty: 0 0RF olanzapine 5 mg tablet,disintegrating 5 mg DAILY olanzapine 20 mg tablet,disintegrating 20 mg PO BEDTIME Qty: 30 1RF Artificial Tears(vk-[id number]) 1-0.2-0.2 % Drops 2 drp ophthalmic (eye) Q4H PRN (Reason: Dry Eyes) 30 Days Qty: 15 0RF divalproex 250 mg Tablet,Delayed Release (Dr/Ec) 250 mg PO BEDTIME 30 Days Qty: 30 0RF docusate sodium 100 mg capsule 100 mg PO DAILY PRN (Reason: constipation) 30 Days Qty: 30 0RF omeprazole 20 mg capsule,delayed release(DR/EC) 20 mg PO DAILY@0630 Qty: 90 3RF Discharge Orders: Discharge Order (Routine); Ordered 12/29/24 Ordered By: Petra Padron Diet: Advance to usual diet Activity on Discharge: As tolerated Stand Alone Forms: Patient Portal Discharge page Print Language: Faroese Care Plan Goals: Transferred to inpatient psychiatric floor Health Concerns: Follow up with primary care provider as needed Take all medications as prescribed Plan of Treatment: Schizophrenia Syncope Assessment: See discharge summary
--- NOTE | 2024-12-29 14:48 | MHC.CM.PN ---
Pt is being transferred to inpatient psych unit.
== END 2024-12-29 15:35 ==
LOC: HO.EDOVER 23:07 → HO.IMC 12-27 00:01
PROVIDERS: Nurse Practitioner Family; Physician Assistant Medical; Student in an Organized Health Care Education/Training Program; Admitting Provider Psychiatry & Neurology Psychiatry; PCP Internal Medicine; Visit Provider Nurse Practitioner Acute Care
DX: R55 Syncope and collapse (principal); I10 Essential (primary) hypertension; E11.9 Type 2 diabetes mellitus without complications; E78.5 Hyperlipidemia, unspecified; K21.9 Gastro-esophageal reflux disease without esophagitis; F20.9 Schizophrenia, unspecified; K22.2 Esophageal obstruction; E66.811 Obesity, class 1; Z68.33 Body mass index [BMI] 33.0-33.9, adult
CPT/HCPCS: 36415; 80053; 80061; 82803; 82947; 83036; 83605; 83735; 83880; 84443; 84484; 85025; 93306; 96372; 99222; J2359; J3360; Q9957; S9485

== ENCOUNTER → 2024-12-26 23:05 | Outpatient (BNV) | payer OTHER, SELFPAY | PROVIDERS: Admitting Provider Psychiatry & Neurology Psychiatry; Visit Provider Nurse Practitioner Family | DX: R55 Syncope and collapse (principal); F20.3 Undifferentiated schizophrenia | CPT/HCPCS: 99222; 99232; 99239 ==

== ENCOUNTER → 2024-12-26 23:05 | Outpatient (BNV) | payer OTHER, SELFPAY | PROVIDERS: Admitting Provider Psychiatry & Neurology Psychiatry; Visit Provider Psychiatry & Neurology Psychiatry | DX: F20.3 Undifferentiated schizophrenia (principal); R55 Syncope and collapse | CPT/HCPCS: 99232 ==

== ENCOUNTER 2024-12-29 14:24 | Outpatient (BNV) | payer OTHER, SELFPAY | END 2025-01-06 16:35 | PROVIDERS: Admitting Provider Social Worker; PCP Internal Medicine; Visit Provider Radiology Diagnostic Radiology | DX: K56.41 Fecal impaction (principal) | CPT/HCPCS: 74018 ==

== ENCOUNTER 2024-12-29 14:24 | Outpatient (BNV) | payer OTHER, SELFPAY | END 2025-01-17 13:40 | PROVIDERS: Admitting Provider Social Worker; PCP Internal Medicine; Visit Provider Radiology Diagnostic Radiology | DX: S62.666A Nondisplaced fracture of distal phalanx of right little finger, initial encounter for closed fracture (principal); S52.611A Displaced fracture of right ulna styloid process, initial encounter for closed fracture; M18.11 Unilateral primary osteoarthritis of first carpometacarpal joint, right hand; W22.8XXA Striking against or struck by other objects, initial encounter | CPT/HCPCS: 73120 ==

== ENCOUNTER 2024-12-29 14:24 | Inpatient (IN) | payer OTHER, SELFPAY ==
--- NOTE | ~2024-12-29 | XR_ITS ---
EXAMINATION: XR ABDOMEN 1 VIEW (KUB) HISTORY: constipation COMPARISON: There are no prior studies for comparison. FINDINGS: Two supine views of the abdomen are submitted. The bowel gas pattern is unremarkable, without evidence of mechanical obstruction. There is a moderate to large amount of stool throughout the colon. No abnormal calcifications are identified. There are no abnormal soft tissue masses. There is degenerative disc disease of the spine. 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 XR/XR KUB IMPRESSION: Moderate to large amount of stool throughout the colon. Electronically signed by: Kevin Leonard MD 01/07/2025 07:59 AM EDT
--- NOTE | ~2024-12-29 | XR_ITS ---
CLINICAL HISTORY: door closed on 5th finger Three views of the right hand. COMPARISON: None FINDINGS: Distal radius and ulna appear intact. Well corticated ossification present along the tip of the ulnar styloid process consistent with remote injury. Carpal bones appear intact. Degenerative changes of the 1st CMC joints with osteophytes and joint space narrowing. Metacarpals appear intact. Small osteophytes present along the heads of the 2nd through 4th metacarpals. Nondisplaced oblique fracture of the diaphysis of the 5th distal phalanx, seen best on lateral imaging. Remaining phalanges appear intact. Interphalangeal joint space narrowing with prominent osteophytes. IMPRESSION: 1. Nondisplaced oblique fracture of the diaphysis of the 5th distal phalanx 2. 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 3. Chronic nonunited ulnar styloid process fracture. This document has been electronically signed by: Robert Crawford MD on 01/17/2025 14:50:56
[2024-12-29 15:45] VITALS: BP 143/71; PULSE 103; RESP 18; TEMP 36.3; O2SAT 97
--- OUTSIDE RECORDS SUMMARY | 2024-12-29 16:48 | XMS_ITS | Encounter Summary ---
Author Organization [employer] [facility] Address [address] [place] [address] Care Team Providers Care Skill Labor Name Role Phone Unavailable Primary Care Provider Unavailabl e Encounter Details Date Type Department Care Team (Latest Contact Info) Description 03/25/2019 Abstract [facility] CONVERSIONS Dental, Provider, DDS Social History [...]
--- OUTSIDE RECORDS SUMMARY | 2024-12-29 16:48 | XMS_ITS | Encounter Summary ---
Author Organization [employer] [facility] Address [address] [place] [address] Care Team Providers Care Finance Broker Name Role Phone Unavailable Primary Care Provider Unavailabl e Encounter Details Date Type Department Care Team (Latest Contact Info) Description 10/30/2021 Abstract [facility] CONVERSIONS Dental, Provider, DDS Social History [...]
--- OUTSIDE RECORDS SUMMARY | 2024-12-29 16:48 | XMS_ITS | Clinical Summary ---
Author Organization [employer] Address [address] [place] [address] Care Team Providers Care Sales Representative Graphic Art Name Role Phone Unavailable Primary Care Provider [...]
--- OUTSIDE RECORDS SUMMARY | 2024-12-29 16:48 | XMS_ITS | Clinical Summary ---
Author Organization [facility] Address [address] [place] [address] Phone Care Team Providers Care Ex Assistant/Program Director Name Role Phone Bradley Zimmer MD Primary Care Provider [phone] Allergies Active Allergy Reactions Criticality Noted Date [...] Pneumococcal Vaccine: 50+ Ye ars (1 of 1 - PCV) 02/09/1998 Influenza Vaccine (Season Ended) 2025 Hepatitis B Vaccine Aged Out No longe r eligible based on patient's age to complete this topic Insurance [facility] ([id number]) [facility] ([id number]) Care Teams Ex Assistant/Program Director Relationship Specialty Start Date End Date Bradley Zimmer MD [facility] [place] [address] [place], [place] PCP - General Internal Medicine 12/23/20
[2024-12-29 17:07] VITALS: BMI 32.5
--- NOTE | 2024-12-29 17:43 | PC.ADMIT ---
74 year old black female admitted to room 177-1 at 1542 from [facility] 479 via wheelchair on a 12b. She has diagnoses of Schizophrenia and unspecified Psychosis. Patient initially was brought to the ED secondary to noncompliance with her medication for at least 2 weeks, poor self care and risk for unintentional self harm. She was not doing self care or grocery shopping and was also missing her psychiatric appointments. She had been on the unit December 26 when she had a Syncopal episode with diaphoresis and went to [facility]. She also has diagnoses of HTN and DM. Pt is able to respond to some questions, suspicious of others w/o a response. Pt account goes from past to present with fluidity. She got agitated by the number of questions and the amount of time for the intake interview. Pt. was unable to provide information regarding a meal order during assessment. Pt doesn't believe that she shouldn't be here and doesn't want to be here. Pt is admitted on a 12b. Affect is a bit animated and later became agitated. She had moments of cooperation, shutting down and uncooperative. She later got up and left the assessment interview. Safety checks were completed. Vital signs [id number] 143/71 and O2 Sat 97% on room air. Weight 201.2 pounds standing, height 5'6 . Skin was clear to ulcers, lacerations, rashes or contusions with multiple nevi of various sizes scattered on her body except upper and lower limbs. Pt has limited insight into her current situation, denies perceptual disturbances w/ self dialoging. Pt focused on getting her eye drops and eating. Pt provided limited information during 1on1 and safety tool. Patient has a legal guardian David Dexter [phone] and a [employer] Order which appears to be . Patient unable to sign VIRGILIO's due to MS. Belongings list completed. Patient signed some paperwork but was unable to sign most due to MS.
--- NOTE | 2024-12-29 20:13 | PHA.MEDREC ---
Pharmacy Consult ? Medication Reconciliation Pharmacy has completed the medication reconciliation. MED REC WAS DONE ON 12/27 USING CLAIMS. [place] [facility] [place]SF[place] [facility] ALL DISCONTINUED SO MED REC DONE USING PREVIOUS ORDER HISTORY.
[2024-12-29] MEDS: Divalproex Sodium 250 MG TABLET.DR PO (21:07)
[2024-12-29] MEDS: OLANZapine ODT 10 MG TAB.RAPDIS 20 MG TRANSLINGU (21:09)
--- NOTE | 2024-12-30 08:43 | HO.PSYADMNOT ---
HPI Date of Service: 12/30/24 Chief Complaint: psychosis Sources of Information: patient interviewed, chart reviewed and crisis/core team assessment reviewed HPI Subjective Notes: Maier Warning and Section 12B Narrative: Ms. Smith is a 74 year-old woman with hx of schizophrenia who was assessed in the community by [facility] due to concerns in terms of increase paranoid, agitation, refusing medications. Pt was brought on a sect 12a. In the ED, pt presented as combative with staff. Her blood pressure was elevated with SBP in the ED of 231/123, refusing medications. She was started on Nifedipine 60mg po daily in the ED. However, when she was transferred to the psychiatric unit on 12/26, she had syncopal episode and BP found to be 89/46, BS 140. She was transferred to medical floor. Nifedipine was stopped. On the unit, pt presents as calmer. She reports she does not know why outpatient team brought her to the hospital. She reports she was doing fine. She reports she may be and she does not know who the father is. She talks about several years ago being in the back of the car with a male. She denies SI/HI. She denies any physical concerns. She reports she is sleeping and eating well. She does not provide explanation as to why she stopped her medications. She asks if she can go home soon as she reports she has medical appointments and boyfriend waiting for her. She does have a kev's which has been extended until 2025 that includes: olanzapine Past Psychiatric History: [facility] client, kev's order and guardian. Schizoaffective D/O Dx per [facility] hosps: [facility] in 1988, [facility] 2013, [place] fall 2015. outpt: [facility] for [facility] Medical Evaluation Reviewed: Yes [facility] Medical History (Updated 12/26/24 @ 23:34 by ISAURA Castillo) Schizophrenia Diabetes 1.5, managed as type 2 Schatzki's ring Glaucoma GERD (gastroesophageal reflux disease) Hyperlipidemia Bipolar 1 disorder Surgical History History of cataract surgery History of total abdominal hysterectomy History of section Family History: unknown Social History: lives in her own apartment. 2 adult children. born in [place]. moved [place] in [place]. Substance History: none Trauma History: none reported. Diagnostics Vital Signs (24Hr): Vital Signs - 24 hr 12/29/24 15:45 Temperature 97.3 F Pulse Rate 103 H Respiratory Rate 18 Blood Pressure 143/71 H Pulse Oximetry 97 Oxygen Delivery Method Room Air BMI result Body Mass Index 32.5 Meds/Allergies Meds Home Medications ?Medication ?Instructions ?Recorded ?Confirmed ?Type olanzapine 5 mg disintegrating 5 mg PO DAILY 12/27/24 12/29/24 History tablet Allergies Allergies Allergy/AdvReac Type Severity Reaction Status Date / Time blueberry [Blueberry] Allergy Severe SWELLING Verified 12/25/24 13:30 lisinopril Allergy Intermediate cough Verified 12/25/24 13:30 mushroom Allergy Intermediate SWELLING Verified 12/25/24 13:30 shellfish derived Allergy Unknown UNKNOWN Verified 12/25/24 13:30 [SHELLFISH DERIVED] thioridazine Allergy Unknown Unknown Verified 12/25/24 13:30 tomato [TOMATO] Allergy Unknown UNKNOWN Verified 12/25/24 13:30 CHOCOLATE Allergy Intermediate ITCHING Uncoded 09/04/24 12:35 From MELLARIL Allergy Intermediate SHORTNESS Uncoded 09/04/24 12:35 OF BREATH From THORAZINE Allergy Intermediate SHORTNESS Uncoded 09/04/24 12:35 OF BREATH Mental Status Exam Mental Status Exam Narrative: Appearance: wearing casual clothing, fair hygiene, in NAD Behavior: cooperative Psychomotor: no agitation or retardation noted Speech: mumbles, difficult to understand at times, regular tone, spontaneous TP: disorganized at times TC: wanting to go home Mood: fine Affect: slightly expansive SI: denies HI: denies VH/AH: internally preoccupied Delusions: delusions of being , Insight/judgment: impaired x 2. Memory/cog: alert, oriented to place, month year not situation. Assessment & Plan Assessment & Plan (1) Schizophrenia: Status: Acute Qualifiers: Schizophrenia type: undifferentiated schizophrenia Qualified Code(s): F20.3 - Undifferentiated schizophrenia Code(s): F20.9 - Schizophrenia, unspecified Plan Ms. Smith is a 74 year-old woman with hx of schizophrenia. She was initially assessed by [facility] in the community due to refusing medications, not accepting support for grocery shopping from ACCS team. In the ED, pt found to be hypertensive SBP 230/110, she was started on nifedipine. She was admitted to on 5/3 but had episode of syncope with BP of 89/46, admitted medically, off ani-hypertensive medications now. She does have a kev's and a guardian. Will restart olanzapine with back IM per fariha. PLAN 1. admit to S1, sect 12b, 15 minutes checks 2. continue olanzapine 20mg po qhs with back IM per kev's 3. obtain collateral information 4. aftercare planning. Patient educated on: diagnosis and medication risk/benefits Reason for continued inpatient stay Substantial Risk for: inability to function Statement Statement: I have reviewed the history and physical and performed a pertinent examination on my patient. No changes have occurred unless specified. If the History and Physical was not performed prior to admission, the Hospitalist's service will be consulted for completing the admission physical. Time Spent With Patient Time: Total time managing care of this patient today ____ minutes.
--- NOTE | 2024-12-30 09:33 | PC.NURSE ---
Pt refused vital signs to be obtained and refused morning meds: lipitor and olanzapine. Provider aware.
[2024-12-30] MEDS: OLANZapine 5 MG TABLET PO (12:35)
[2024-12-30] MEDS: OLANZapine ODT 10 MG TAB.RAPDIS 20 MG TRANSLINGU (21:01)
[2024-12-30] MEDS: Divalproex Sodium 250 MG TABLET.DR PO (21:01)
[2024-12-30] MEDS: Artificial Tears 15 ML DROPS 2 DROP EYE-BOTH (21:03)
[2024-12-31] MEDS: Artificial Tears 15 ML DROPS 2 DROP EYE-BOTH (06:27)
[2024-12-31 09:29] VITALS: PULSE 86; RESP 18; TEMP 36.4; O2SAT 94
--- NOTE | 2024-12-31 16:06 | HO.PSYCHPN ---
Subjective Subjective Date of Service: 12/31/24 Reason For Visit: psychosis Subjective Notes: Section 7 Interim History: Pt slept through the night. She declined olanzapine, given IM olanzapine per kev's Pt reports she has to go home as she has appointment to go to. No SI/HI. She reports she hears voices but thinks this is due to blockage to her ear and asks for something to clean it. No aggression on the unit. Mental Status Exam Mental Status Exam Narrative: Appearance: wearing casual clothing, fair hygiene, in NAD Behavior: cooperative Psychomotor: no agitation or retardation noted Speech: mumbles, difficult to understand at times, regular tone, spontaneous TP: disorganized at times TC: wanting to go home Mood: fine Affect: slightly expansive SI: denies HI: denies VH/AH: internally preoccupied Delusions: delusions of being , Insight/judgment: impaired x 2. Memory/cog: alert, oriented to place, month year not situation. Diagnostics Vital Signs (24Hr): Vital Signs - 24 hr 12/31/24 09:29 Temperature 97.5 F Pulse Rate 86 Respiratory Rate 18 Pulse Oximetry 94 Oxygen Delivery Method Room Air BMI result Body Mass Index 32.5 Medications Medications Current Medications Acetaminophen (Acetaminophen 325 Mg Tablet) 650 mg PO Q6H PRN PRN Reason: Headache/Pain, Scale 1-10 Al Hydroxide/Mg Hydroxide (Magnesium Hydrox/Alum Hydrox 30 Ml Oral.Susp) 30 ml PO Q6H PRN PRN Reason: Heartburn/Nausea Artificial Tears (Artificial Tears 15 Ml Drops) 2 drop EYE-BOTH Q4H PRN PRN Reason: Dry Eyes Last Admin: 12/31/24 06:27 Dose: 2 drop Atorvastatin Calcium (Atorvastatin Calcium 80 Mg Tablet) 80 mg PO DAILY [facility] Last Admin: 12/31/24 10:19 Dose: Not Given Divalproex Sodium (Divalproex Sodium 250 Mg Tablet.Dr) 250 mg PO BEDTIME [facility] Last Admin: 12/30/24 21:01 Dose: 250 mg Docusate Sodium (Docusate Sodium 100 Mg Capsule) 100 mg PO DAILY PRN PRN Reason: constipation Hydroxyzine HCl (Hydroxyzine Hcl 25 Mg Tablet) 25 mg PO Q6H PRN PRN Reason: mild anxiety Magnesium Hydroxide (Milk Of Magnesia 30 Ml Oral.Susp) 30 ml PO DAILY PRN PRN Reason: Constipation Olanzapine (Olanzapine 5 Mg Tablet) 5 mg PO DAILY [facility] Last Admin: 12/31/24 10:19 Dose: Not Given Olanzapine (Olanzapine Odt 10 Mg Tab.Rapdis) 20 mg TRANSLINGU BEDTIME [facility] Last Admin: 12/30/24 21:01 Dose: 20 mg Olanzapine (Olanzapine 10 Mg Vial) 10 mg IM BID PRN PRN Reason: if refuses oral per court Omeprazole (Omeprazole 20 Mg Capsule.Dr) 20 mg PO DAILY@0630 [facility] Last Admin: 12/31/24 06:12 Dose: Not Given Trazodone HCl (Trazodone Hcl 50 Mg Tablet) 50 mg PO BEDTIME MRX1 PRN PRN Reason: Insomnia Allergies Allergies Allergy/AdvReac Type Severity Reaction Status Date / Time blueberry [Blueberry] Allergy Severe SWELLING Verified 12/25/24 13:30 lisinopril Allergy Intermediate cough Verified 12/25/24 13:30 mushroom Allergy Intermediate SWELLING Verified 12/25/24 13:30 shellfish derived Allergy Unknown UNKNOWN Verified 12/25/24 13:30 [SHELLFISH DERIVED] thioridazine Allergy Unknown Unknown Verified 12/25/24 13:30 tomato [TOMATO] Allergy Unknown UNKNOWN Verified 12/25/24 13:30 CHOCOLATE Allergy Intermediate ITCHING Uncoded 09/04/24 12:35 From MELLARIL Allergy Intermediate SHORTNESS Uncoded 09/04/24 12:35 OF BREATH From THORAZINE Allergy Intermediate SHORTNESS Uncoded 09/04/24 12:35 OF BREATH Assessment & Plan Assessment & Plan (1) Schizophrenia: Qualifiers: Schizophrenia type: undifferentiated schizophrenia Qualified Code(s): F20.3 - Undifferentiated schizophrenia Status: Acute Code(s): F20.9 - Schizophrenia, unspecified Plan Ms. Smith is a 74 year-old woman with hx of schizophrenia. She was initially assessed by [facility] in the community due to refusing medications, not accepting support for grocery shopping from ACCS team. In the ED, pt found to be hypertensive SBP 230/110, she was started on nifedipine. She was admitted to S1 on 12/26 but had episode of syncope with BP of 89/46, admitted medically, off ani-hypertensive medications now. She does have a kev's and a guardian. Will restart olanzapine with back IM per fariha. PLAN 1. admit to S1, sect 12b, 15 minutes checks 2. continue olanzapine 20mg po qhs with back IM per kev's 3. obtain collateral information 4. aftercare planning. Reason for continued inpatient stay Substantial Risk for: inability to function Time Spent With Patient Time: Total time managing care of this patient today ____ minutes.
[2024-12-31] MEDS: Divalproex Sodium 250 MG TABLET.DR PO (20:18)
[2024-12-31] MEDS: OLANZapine ODT 10 MG TAB.RAPDIS 20 MG TRANSLINGU (20:18)
[2024-12-31 20:25] VITALS: BP 183/112; PULSE 92; RESP 18; TEMP 36.6; O2SAT 100
[2025-01-01] MEDS: Acetaminophen 325 MG TABLET 650 MG PO (00:25)
[2025-01-01 08:13] VITALS: BP 213/94; PULSE 111; RESP 18; TEMP 36.9; O2SAT 94
[2025-01-01 09:08] VITALS: BMI 33.5
[2025-01-01] MEDS: OLANZapine ODT 10 MG TAB.RAPDIS 5 MG TRANSLINGU (10:56)
--- NOTE | 2025-01-01 12:25 | P.CONHOSP_ITS ---
History of Present Illness Data of Consult Service Date: 01/01/25 Requesting physician: Swathi Moe Primary Care Provider: Bradley Zimmer MD [facility] Reason for consult: Hypertension 74-year-old female with past medical history of schizophrenia, hypertension, diabetes, hyperlipidemia, GERD, Schatzki's ring, glaucoma is seen today for hypertension. She recently had a rapid response related to a syncopal episode with low blood pressure diaphoresis and a minimal response. She had a recent echo that showed EF of 70%. Per staff she frequently refuses blood pressure checks as well as medications, the only medications that she does take are ones that are under Dario 's orders. Review of Systems Review of Systems: Patient appears to be in no apparent distress skin warm and dry PMFSH Medical History (Updated 12/26/24 @ 23:34 by ISAURA Castillo) Schizophrenia Diabetes 1.5, managed as type 2 Schatzki's ring Glaucoma GERD (gastroesophageal reflux disease) Hyperlipidemia Bipolar 1 disorder Family History Father No problems noted. Mother No problems noted. Surgical History History of cataract surgery History of total abdominal hysterectomy History of section Social History Household Members: None Household Members Other:: Per ED pt lives with one roommate in [facility] managed apartment. Housing: Apartment Housing Other:: question of an eviction notice Do you presently have visiting nurse or other home services: Yes Unable to assess alcohol history related to: Refusing to respond Alcohol intake: never Comment: 02/2024 Patient Tobacco Use Status: Former Tobacco user Tobacco use type: Cigarette Smoked in Last 30 Days: No e-Cigarette/Vaping Use: Former Use Patient Interested in Nicotine Replacement: No Patient Given Instructions on How to Stop Smoking: No Second Hand Smoke Exposure: No Use of substances other than those prescribed or required for medical reasons: No Currently Displaying Signs/Symptoms of Drug Intoxication Withdrawal: No Any prior treatment program specific to substance use: No Have you been hit, kicked, punched, or otherwise hurt by someone within the past year? If so, by whom?: No Do you feel safe in your current relationship?: No Current Relationship Is there a partner from a previous relationship who is making you feel unsafe now?: No Are you made to feel afraid or neglected: No Mormonism Healthcare Practices: Tenriism Advance Directives: No Advance Directives Information Provided: No Do you have thoughts of harming others: None Do you have a plan to hurt others: No Plan Recently lost weight without trying: No How much weight loss: Not applicable Eating poorly because of decreased appetite: No Nutrition screen score: 0 Nutrition Risks: No Nutritional Risk Patient : No : No Poor oral hygiene: No service: No Current occupational status: disabled Sexual orientation: Straight/Heterosexual Cognitive needs: Yes Hearing needs: Yes Vision needs: Yes Meds Allergies Allergy/AdvReac Type Severity Reaction Status Date / Time blueberry [Blueberry] Allergy Severe SWELLING Verified 12/25/24 13:30 lisinopril Allergy Intermediate cough Verified 12/25/24 13:30 mushroom Allergy Intermediate SWELLING Verified 12/25/24 13:30 shellfish derived Allergy Unknown UNKNOWN Verified 12/25/24 13:30 [SHELLFISH DERIVED] thioridazine Allergy Unknown Unknown Verified 12/25/24 13:30 tomato [TOMATO] Allergy Unknown UNKNOWN Verified 12/25/24 13:30 CHOCOLATE Allergy Intermediate ITCHING Uncoded 09/04/24 12:35 From MELLARIL Allergy Intermediate SHORTNESS Uncoded 09/04/24 12:35 OF BREATH From THORAZINE Allergy Intermediate SHORTNESS Uncoded 09/04/24 12:35 OF BREATH Active Medications: Current Medications Acetaminophen (Acetaminophen 325 Mg Tablet) 650 mg PO Q6H PRN PRN Reason: Headache/Pain, Scale 1-10 Last Admin: 01/01/25 00:25 Dose: 650 mg Al Hydroxide/Mg Hydroxide (Magnesium Hydrox/Alum Hydrox 30 Ml Oral.Susp) 30 ml PO Q6H PRN PRN Reason: Heartburn/Nausea Artificial Tears (Artificial Tears 15 Ml Drops) 2 drop EYE-BOTH Q4H PRN PRN Reason: Dry Eyes Last Admin: 12/31/24 06:27 Dose: 2 drop Atorvastatin Calcium (Atorvastatin Calcium 80 Mg Tablet) 80 mg PO DAILY [facility] Last Admin: 01/01/25 10:56 Dose: Not Given Divalproex Sodium (Divalproex Sodium 250 Mg Tablet.Dr) 250 mg PO BEDTIME [facility] Last Admin: 12/31/24 20:18 Dose: 250 mg Docusate Sodium (Docusate Sodium 100 Mg Capsule) 100 mg PO DAILY PRN PRN Reason: constipation Hydroxyzine HCl (Hydroxyzine Hcl 25 Mg Tablet) 25 mg PO Q6H PRN PRN Reason: mild anxiety Magnesium Hydroxide (Milk Of Magnesia 30 Ml Oral.Susp) 30 ml PO DAILY PRN PRN Reason: Constipation Olanzapine (Olanzapine Odt 10 Mg Tab.Rapdis) 20 mg TRANSLINGU BEDTIME [facility] Last Admin: 12/31/24 20:18 Dose: 20 mg Olanzapine (Olanzapine 10 Mg Vial) 10 mg IM BID PRN PRN Reason: if refuses oral per court Olanzapine (Olanzapine Odt 10 Mg Tab.Rapdis) 5 mg TRANSLINGU DAILY [facility] Last Admin: 01/01/25 10:56 Dose: 5 mg Omeprazole (Omeprazole 20 Mg Capsule.) 20 mg PO DAILY@0630 [facility] Last Admin: 01/01/25 05:12 Dose: Not Given Trazodone HCl (Trazodone Hcl 50 Mg Tablet) 50 mg PO BEDTIME MRX1 PRN PRN Reason: Insomnia Home Medications ?Medication ?Instructions ?Recorded ?Confirmed ?Last Taken ?Type olanzapine 5 mg disintegrating 5 mg PO DAILY 12/27/24 12/29/24 12/29/24 History tablet Physical Exam Vital Signs and Narrative: Vital Signs: Last Vital Signs Temp 98.4 F 01/01/25 08:13 Pulse 111 H 01/01/25 08:13 Resp 18 01/01/25 08:13 BP 213/94 H 01/01/25 08:13 Pulse Ox 94 01/01/25 08:13 O2 Del Method Room Air 01/01/25 08:13 BMI result Body Mass Index 33.5 She refused physical exam Her respiratory rate is even and regular She does not appear to be in any respiratory distress Appears to be near baseline mentation Skin warm and dry Assessment and Plan (1) HTN (hypertension): Qualifiers: Hypertension type: essential hypertension Qualified Code(s): I10 - Essential (primary) hypertension Status: Acute Plan 74-year-old female with past medical history of schizophrenia, hypertension, diabetes, hyperlipidemia, GERD, Schatzki's ring, glaucoma is seen today for hypertension. Patient with recent transferred to the medical floor for syncopal episode. All hypertensive medications were discontinued at that time Hypertension Monitor blood pressure twice a day as patient allows Please notify hospitalist service if her blood pressure is elevated SBP >180 Consider starting a low-dose of lisinopril. Patient does not cooperate with any medications or assessments most of the time
[2025-01-01] MEDS: Artificial Tears 15 ML DROPS 2 DROP EYE-BOTH (15:53)
[2025-01-01] MEDS: OLANZapine ODT 10 MG TAB.RAPDIS 20 MG TRANSLINGU (20:09)
[2025-01-01] MEDS: Divalproex Sodium 250 MG TABLET.DR PO (20:14)
[2025-01-02 08:00] VITALS: PULSE 90; RESP 16; TEMP 36.8; O2SAT 97
[2025-01-02] MEDS: OLANZapine ODT 10 MG TAB.RAPDIS 5 MG TRANSLINGU (09:11)
--- NOTE | 2025-01-02 12:46 | HO.PSYCHPN ---
Subjective Subjective Date of Service: 01/02/25 Reason For Visit: psychosis Subjective Notes: Conditional Voluntary Interim History: Patient was seen and discussed in rounds today. Records and plans were reviewed. She has been refusing to have her blood pressure taken and it usually runs quite high rapid response was called yesterday. Not taking her blood pressure medications. I will order a clonidine patch for now that she can not remove. Review of Systems Review of Systems Yes all other systems are reviewed and are negative Mental Status Exam Mental Status Exam Narrative: Appearance: wearing casual clothing, fair hygiene, in NAD Behavior: cooperative Psychomotor: no agitation or retardation noted Speech: mumbles, difficult to understand at times, regular tone, spontaneous TP: disorganized at times TC: wanting to go home Mood: fine Affect: slightly expansive SI: denies HI: denies VH/AH: internally preoccupied Delusions: delusions of being , Insight/judgment: impaired x 2. Memory/cog: alert, oriented to place, month year not situation. Diagnostics Vital Signs (24Hr): Vital Signs - 24 hr 01/02/25 08:00 Temperature 98.2 F Pulse Rate 90 Respiratory Rate 16 Pulse Oximetry 97 Oxygen Delivery Method Room Air BMI result Body Mass Index 33.5 Medications Medications Current Medications Acetaminophen (Acetaminophen 325 Mg Tablet) 650 mg PO Q6H PRN PRN Reason: Headache/Pain, Scale 1-10 Last Admin: 01/01/25 00:25 Dose: 650 mg Al Hydroxide/Mg Hydroxide (Magnesium Hydrox/Alum Hydrox 30 Ml Oral.Susp) 30 ml PO Q6H PRN PRN Reason: Heartburn/Nausea Artificial Tears (Artificial Tears 15 Ml Drops) 2 drop EYE-BOTH Q4H PRN PRN Reason: Dry Eyes Last Admin: 01/01/25 15:53 Dose: 2 drop Atorvastatin Calcium (Atorvastatin Calcium 80 Mg Tablet) 80 mg PO DAILY [facility] Last Admin: 01/02/25 09:59 Dose: Not Given Divalproex Sodium (Divalproex Sodium 250 Mg Tablet.) 250 mg PO BEDTIME [facility] Last Admin: 01/01/25 20:14 Dose: 250 mg Docusate Sodium (Docusate Sodium 100 Mg Capsule) 100 mg PO DAILY PRN PRN Reason: constipation Hydroxyzine HCl (Hydroxyzine Hcl 25 Mg Tablet) 25 mg PO Q6H PRN PRN Reason: mild anxiety Magnesium Hydroxide (Milk Of Magnesia 30 Ml Oral.Susp) 30 ml PO DAILY PRN PRN Reason: Constipation Olanzapine (Olanzapine Odt 10 Mg Tab.Rapdis) 20 mg TRANSLINGU BEDTIME [facility] Last Admin: 01/01/25 20:09 Dose: 20 mg Olanzapine (Olanzapine 10 Mg Vial) 10 mg IM BID PRN PRN Reason: if refuses oral per court Olanzapine (Olanzapine Odt 10 Mg Tab.Rapdis) 5 mg TRANSLINGU DAILY [facility] Last Admin: 01/02/25 09:11 Dose: 5 mg Omeprazole (Omeprazole 20 Mg Capsule.Dr) 20 mg PO DAILY@0630 [facility] Last Admin: 01/01/25 05:12 Dose: Not Given Trazodone HCl (Trazodone Hcl 50 Mg Tablet) 50 mg PO BEDTIME MRX1 PRN PRN Reason: Insomnia Allergies Allergies Allergy/AdvReac Type Severity Reaction Status Date / Time blueberry [Blueberry] Allergy Severe SWELLING Verified 12/25/24 13:30 lisinopril Allergy Intermediate cough Verified 12/25/24 13:30 mushroom Allergy Intermediate SWELLING Verified 12/25/24 13:30 shellfish derived Allergy Unknown UNKNOWN Verified 12/25/24 13:30 [SHELLFISH DERIVED] thioridazine Allergy Unknown Unknown Verified 12/25/24 13:30 tomato [TOMATO] Allergy Unknown UNKNOWN Verified 12/25/24 13:30 CHOCOLATE Allergy Intermediate ITCHING Uncoded 09/04/24 12:35 From MELLARIL Allergy Intermediate SHORTNESS Uncoded 09/04/24 12:35 OF BREATH From THORAZINE Allergy Intermediate SHORTNESS Uncoded 09/04/24 12:35 OF BREATH Assessment & Plan Assessment & Plan (1) HTN (hypertension): Qualifiers: Hypertension type: essential hypertension Qualified Code(s): I10 - Essential (primary) hypertension Status: Acute Code(s): I10 - Essential (primary) hypertension Plan 74-year-old female with past medical history of schizophrenia, hypertension, diabetes, hyperlipidemia, GERD, Schatzki's ring, glaucoma is seen today for hypertension. Patient with recent transferred to the medical floor for syncopal episode. All hypertensive medications were discontinued at that time Hypertension Monitor blood pressure twice a day as patient allows Please notify hospitalist service if her blood pressure is elevated SBP >180 Consider starting a low-dose of lisinopril. Patient does not cooperate with any medications or assessments most of the time 01/02: Continue current regimen and plans. Clonidine 0.1 mg patch Reason for continued inpatient stay Substantial Risk for: inability to function and med/psych decompensation Time Spent With Patient Time: Total time managing care of this patient today ____ minutes.
[2025-01-02] MEDS: cloNIDine 0.1 MG PATCH.TDWK TRANSDERMA (16:40)
[2025-01-02] MEDS: Artificial Tears 15 ML DROPS 2 DROP EYE-BOTH (17:22)
[2025-01-02 20:00] VITALS: RESP 18
[2025-01-02] MEDS: OLANZapine ODT 10 MG TAB.RAPDIS 20 MG TRANSLINGU ×2 (20:53→20:58)
[2025-01-02] MEDS: Divalproex Sodium 250 MG TABLET.DR PO ×2 (20:53→20:58)
--- NOTE | 2025-01-03 01:23 | PC.NURSE ---
Pt declined VS.
[2025-01-03 08:00] VITALS: PULSE 89; RESP 14; TEMP 36.8; O2SAT 97
[2025-01-03] MEDS: Artificial Tears 15 ML DROPS 2 DROP EYE-BOTH (08:22)
[2025-01-03] MEDS: OLANZapine ODT 10 MG TAB.RAPDIS 5 MG TRANSLINGU (08:23)
[2025-01-03] MEDS: cloNIDine 0.1 MG PATCH.TDWK TRANSDERMA (09:46)
--- NOTE | 2025-01-03 10:39 | P.PNPSI_ITS ---
Subjective Subjective Date of Service: 01/02/25 Reason For Visit: psychosis Subjective Notes: Conditional Voluntary Interim History: Patient was seen and discussed in rounds today. Records and plans were reviewed. She continues to refuse care. She did accept the clonidine patch yesterday but does not allow us to get her blood pressure!. Eating adequately. Redirectable but hard to deal with at times.. Review of Systems Review of Systems Yes Unobtainable due to mental status Mental Status Exam Mental Status Exam Narrative: Appearance: wearing casual clothing, fair hygiene, in NAD Behavior: cooperative Psychomotor: no agitation or retardation noted Speech: mumbles, difficult to understand at times, regular tone, spontaneous TP: disorganized at times TC: wanting to go home Mood: fine Affect: slightly expansive SI: denies HI: denies VH/AH: internally preoccupied Delusions: delusions of being , Insight/judgment: impaired x 2. Memory/cog: alert, oriented to place, month year not situation. Diagnostics Vital Signs (24Hr): Vital Signs - 24 hr 01/02/25 20:00 01/03/25 08:00 Temperature 98.2 F Pulse Rate 89 Respiratory Rate 18 14 Pulse Oximetry 97 Oxygen Delivery Method Room Air BMI result Body Mass Index 33.5 Medications Medications Current Medications Acetaminophen (Acetaminophen 325 Mg Tablet) 650 mg PO Q6H PRN PRN Reason: Headache/Pain, Scale 1-10 Last Admin: 01/01/25 00:25 Dose: 650 mg Al Hydroxide/Mg Hydroxide (Magnesium Hydrox/Alum Hydrox 30 Ml Oral.Susp) 30 ml PO Q6H PRN PRN Reason: Heartburn/Nausea Artificial Tears (Artificial Tears 15 Ml Drops) 2 drop EYE-BOTH Q4H PRN PRN Reason: Dry Eyes Last Admin: 01/03/25 08:22 Dose: 2 drop Atorvastatin Calcium (Atorvastatin Calcium 80 Mg Tablet) 80 mg PO DAILY ON LICENSE OF [facility] Last Admin: 01/02/25 09:59 Dose: Not Given Clonidine (Clonidine 0.1 Mg Patch.Tdwk) 0.1 mg TRANSDERMA DAILY ON LICENSE OF [facility]; Protocol Last Admin: 01/03/25 09:46 Dose: 0.1 mg Divalproex Sodium (Divalproex Sodium 250 Mg Tablet.Dr) 250 mg PO BEDTIME ON LICENSE OF [facility] Last Admin: 01/02/25 20:58 Dose: 250 mg Docusate Sodium (Docusate Sodium 100 Mg Capsule) 100 mg PO DAILY PRN PRN Reason: constipation Hydroxyzine HCl (Hydroxyzine Hcl 25 Mg Tablet) 25 mg PO Q6H PRN PRN Reason: mild anxiety Magnesium Hydroxide (Milk Of Magnesia 30 Ml Oral.Susp) 30 ml PO DAILY PRN PRN Reason: Constipation Olanzapine (Olanzapine Odt 10 Mg Tab.Rapdis) 20 mg TRANSLINGU BEDTIME ON LICENSE OF [facility] Last Admin: 01/02/25 20:58 Dose: 20 mg Olanzapine (Olanzapine 10 Mg Vial) 10 mg IM BID PRN PRN Reason: if refuses oral per court Olanzapine (Olanzapine Odt 10 Mg Tab.Rapdis) 5 mg TRANSLINGU DAILY ON LICENSE OF [facility] Last Admin: 01/03/25 08:23 Dose: 5 mg Omeprazole (Omeprazole 20 Mg Capsule.Dr) 20 mg PO DAILY@0630 ON LICENSE OF [facility] Last Admin: 01/03/25 05:38 Dose: Not Given Trazodone HCl (Trazodone Hcl 50 Mg Tablet) 50 mg PO BEDTIME MRX1 PRN PRN Reason: Insomnia Allergies Allergies Allergy/AdvReac Type Severity Reaction Status Date / Time blueberry [Blueberry] Allergy Severe SWELLING Verified 12/25/24 13:30 lisinopril Allergy Intermediate cough Verified 12/25/24 13:30 mushroom Allergy Intermediate SWELLING Verified 12/25/24 13:30 shellfish derived Allergy Unknown UNKNOWN Verified 12/25/24 13:30 [SHELLFISH DERIVED] thioridazine Allergy Unknown Unknown Verified 12/25/24 13:30 tomato [TOMATO] Allergy Unknown UNKNOWN Verified 12/25/24 13:30 CHOCOLATE Allergy Intermediate ITCHING Uncoded 09/04/24 12:35 From MELLARIL Allergy Intermediate SHORTNESS Uncoded 09/04/24 12:35 OF BREATH From THORAZINE Allergy Intermediate SHORTNESS Uncoded 09/04/24 12:35 OF BREATH Assessment & Plan Assessment & Plan (1) HTN (hypertension): Qualifiers: Hypertension type: essential hypertension Qualified Code(s): I10 - Es sential (primary) hypertension Status: Acute Code(s): I10 - Essential (primary) hypertension Plan 74-year-old female with past medical history of schizophrenia, hypertension, diabetes, hyperlipidemia, GERD, Schatzki's ring, glaucoma is seen today for hypertension. Patient with recent transferred to the medical floor for syncopal episode. All hypertensive medications were discontinued at that time Hypertension Monitor blood pressure twice a day as patient allows Please notify hospitalist service if her blood pressure is elevated SBP >180 Consider starting a low-dose of lisinopril. Patient does not cooperate with any medications or assessments most of the time 01/02: Continue current regimen and plans. Clonidine 0.1 mg patch 01/03: Continue current regimen and plans Reason for continued inpatient stay Substantial Risk for: med/psych decompensation Time Spent With Patient Time: Total time managing care of this patient today ____ minutes.
[2025-01-03 20:00] VITALS: BP 139/86; PULSE 103; RESP 18; TEMP 36.3; O2SAT 97
[2025-01-03] MEDS: OLANZapine ODT 10 MG TAB.RAPDIS 20 MG TRANSLINGU (21:19)
[2025-01-03] MEDS: Divalproex Sodium 250 MG TABLET.DR PO (21:19)
[2025-01-04] MEDS: Artificial Tears 15 ML DROPS 2 DROP EYE-BOTH (06:38)
[2025-01-04 08:00] VITALS: BP 179/90; PULSE 84; RESP 16; TEMP 36.7; O2SAT 99
[2025-01-04] MEDS: cloNIDine 0.1 MG PATCH.TDWK TRANSDERMA (08:59)
[2025-01-04] MEDS: Omeprazole 20 MG CAPSULE.DR PO (09:01)
[2025-01-04] MEDS: Atorvastatin Calcium 80 MG TABLET PO (09:01)
[2025-01-04] MEDS: OLANZapine ODT 10 MG TAB.RAPDIS 5 MG TRANSLINGU (09:01)
--- NOTE | 2025-01-04 11:20 | P.PNPSI_ITS ---
Subjective Subjective Date of Service: 01/01/25 Reason For Visit: psychosis Subjective Notes: Section 7 Interim History: Late entry 01/01/25: Pt slept through the night, needs a lot of encouragement to take kev's medications. She did take them. She is well groomed, no aggression. Delusions of being and wanting to leave. She also does not believe she has hypertension. No SI/HI. Review of Systems Review of Systems Patient appears to be in no apparent distress skin warm and dry Yes all other systems are reviewed and are negative and Unobtainable due to mental status Mental Status Exam Mental Status Exam Narrative: Appearance: wearing casual clothing, fair hygiene, in NAD Behavior: cooperative Psychomotor: no agitation or retardation noted Speech: mumbles, difficult to understand at times, regular tone, spontaneous TP: disorganized at times TC: wanting to go home Mood: fine Affect: slightly expansive SI: denies HI: denies VH/AH: internally preoccupied Delusions: delusions of being , Insight/judgment: impaired x 2. Memory/cog: alert, oriented to place, month year not situation. Diagnostics Vital Signs (24Hr): Vital Signs - 24 hr 01/03/25 20:00 01/04/25 08:00 Temperature 97.3 F 98.1 F Pulse Rate 103 H 84 Respiratory Rate 18 16 Blood Pressure 139/86 179/90 H Pulse Oximetry 97 99 Oxygen Delivery Method Room Air Room Air BMI result Body Mass Index 33.5 Medications Medications Current Medications Acetaminophen (Acetaminophen 325 Mg Tablet) 650 mg PO Q6H PRN PRN Reason: Headache/Pain, Scale 1-10 Last Admin: 01/01/25 00:25 Dose: 650 mg Al Hydroxide/Mg Hydroxide (Magnesium Hydrox/Alum Hydrox 30 Ml Oral.Susp) 30 ml PO Q6H PRN PRN Reason: Heartburn/Nausea Artificial Tears (Artificial Tears 15 Ml Drops) 2 drop EYE-BOTH Q4H PRN PRN Reason: Dry Eyes Last Admin: 01/04/25 06:38 Dose: 2 drop Atorvastatin Calcium (Atorvastatin Calcium 80 Mg Tablet) 80 mg PO DAILY EDIN Last Admin: 01/04/25 09:01 Dose: 80 mg Clonidine (Clonidine 0.1 Mg Patch.Tdwk) 0.1 mg TRANSDERMA DAILY ED[facility]; Protocol Last Admin: 01/04/25 08:59 Dose: 0.1 mg Divalproex Sodium (Divalproex Sodium 250 Mg Tablet.Dr) 250 mg PO BEDTIME [facility] Last Admin: 01/03/25 21:19 Dose: 250 mg Docusate Sodium (Docusate Sodium 100 Mg Capsule) 100 mg PO DAILY PRN PRN Reason: constipation Hydroxyzine HCl (Hydroxyzine Hcl 25 Mg Tablet) 25 mg PO Q6H PRN PRN Reason: mild anxiety Magnesium Hydroxide (Milk Of Magnesia 30 Ml Oral.Susp) 30 ml PO DAILY PRN PRN Reason: Constipation Olanzapine (Olanzapine Odt 10 Mg Tab.Rapdis) 20 mg TRANSLINGU BEDTIME [facility] Last Admin: 01/03/25 21:19 Dose: 20 mg Olanzapine (Olanzapine 10 Mg Vial) 10 mg IM BID PRN PRN Reason: if refuses oral per court Olanzapine (Olanzapine Odt 10 Mg Tab.Rapdis) 5 mg TRANSLINGU DAILY [facility] Last Admin: 01/04/25 09:01 Dose: 5 mg Omeprazole (Omeprazole 20 Mg Capsule.Dr) 20 mg PO DAILY@0630 [facility] Last Admin: 01/04/25 09:01 Dose: 20 mg Trazodone HCl (Trazodone Hcl 50 Mg Tablet) 50 mg PO BEDTIME MRX1 PRN PRN Reason: Insomnia Allergies Allergies Allergy/AdvReac Type Severity Reaction Status Date / Time blueberry [Blueberry] Allergy Severe SWELLING Verified 12/25/24 13:30 lisinopril Allergy Intermediate cough Verified 12/25/24 13:30 mushroom Allergy Intermediate SWELLING Verified 12/25/24 13:30 shellfish derived Allergy Unknown UNKNOWN Verified 12/25/24 13:30 [SHELLFISH DERIVED] thioridazine Allergy Unknown Unknown Verified 12/25/24 13:30 tomato [TOMATO] Allergy Unknown UNKNOWN Verified 12/25/24 13:30 CHOCOLATE Allergy Intermediate ITCHING Uncoded 09/04/24 12:35 From MELLARIL Allergy Intermediate SHORTNESS Uncoded 09/04/24 12:35 OF BREATH From THORAZINE Allergy Intermediate SHORTNESS Uncoded 09/04/24 12:35 OF BREATH Assessment & Plan Assessment & Plan (1) HTN (hypertension): Qualifiers: Hypertension type: essential hypertension Qualified Code(s): I10 - Essential (primary) hypertension Status: Acute Code(s): I10 - Essential (primary) hypertension (2) Schizophrenia: Qualifiers: Schizophrenia type: undifferentiated schizophrenia Qualified Code(s): F20.3 - Undifferentiated schizophrenia Status: Acute Code(s): F20.9 - Schizophrenia, unspecified Plan Ms. Smith is a 74 year-old woman with hx of schizophrenia. She was initially assessed by [facility] in the community due to refusing medications, not accepting support for grocery shopping from ACCS team. In the ED, pt found to be hypertensive SBP 230/110, she was started on nifedipine. She was admitted to [facility] on 12/26 but had episode of syncope with BP of 89/46, admitted medically, off ani- hypertensive medications now. She does have a kev's and a guardian. Will restart olanzapine with back IM per fariha. PLAN 01/01 continue tx. BP elevated this AM, seen by hospitalist. Reason for continued inpatient stay Substantial Risk for: med/psych decompensation Time Spent With Patient Time: Total time managing care of this patient today ____ minutes.
--- NOTE | 2025-01-04 11:34 | HO.PSYCHPN ---
Subjective Subjective Date of Service: 01/04/25 Reason For Visit: psychosis Subjective Notes: Section 7 Interim History: Pt slept through the night. She reports she has to go back home, people awaiting for her. She is taking medications as prescribed, including olanzapine without need for IM per kev's Continues to report that she is . No behavioral concerns. Review of Systems Review of Systems Patient appears to be in no apparent distress skin warm and dry Yes all other systems are reviewed and are negative and Unobtainable due to mental status Mental Status Exam Mental Status Exam Narrative: Appearance: wearing casual clothing, fair hygiene, in NAD Behavior: cooperative Psychomotor: no agitation or retardation noted Speech: mumbles, difficult to understand at times, regular tone, spontaneous TP: disorganized at times TC: wanting to go home Mood: fine Affect: slightly expansive SI: denies HI: denies VH/AH: internally preoccupied Delusions: delusions of being , Insight/judgment: impaired x 2. Memory/cog: alert, oriented to place, month year not situation. Diagnostics Vital Signs (24Hr): Vital Signs - 24 hr 01/03/25 20:00 01/04/25 08:00 Temperature 97.3 F 98.1 F Pulse Rate 103 H 84 Respiratory Rate 18 16 Blood Pressure 139/86 179/90 H Pulse Oximetry 97 99 Oxygen Delivery Method Room Air Room Air BMI result Body Mass Index 33.5 Medications Medications Current Medications Acetaminophen (Acetaminophen 325 Mg Tablet) 650 mg PO Q6H PRN PRN Reason: Headache/Pain, Scale 1-10 Last Admin: 01/01/25 00:25 Dose: 650 mg Al Hydroxide/Mg Hydroxide (Magnesium Hydrox/Alum Hydrox 30 Ml Oral.Susp) 30 ml PO Q6H PRN PRN Reason: Heartburn/Nausea Artificial Tears (Artificial Tears 15 Ml Drops) 2 drop EYE-BOTH Q4H PRN PRN Reason: Dry Eyes Last Admin: 01/04/25 06:38 Dose: 2 drop Atorvastatin Calcium (Atorvastatin Calcium 80 Mg Tablet) 80 mg PO DAILY EDIN Last Admin: 01/04/25 09:01 Dose: 80 mg Clonidine (Clonidine 0.1 Mg Patch.Tdwk) 0.1 mg TRANSDERMA DAILY ED[facility]; Protocol Last Admin: 01/04/25 08:59 Dose: 0.1 mg Divalproex Sodium (Divalproex Sodium 250 Mg Tablet.) 250 mg PO BEDTIME [facility] Last Admin: 01/03/25 21:19 Dose: 250 mg Docusate Sodium (Docusate Sodium 100 Mg Capsule) 100 mg PO DAILY PRN PRN Reason: constipation Hydroxyzine HCl (Hydroxyzine Hcl 25 Mg Tablet) 25 mg PO Q6H PRN PRN Reason: mild anxiety Magnesium Hydroxide (Milk Of Magnesia 30 Ml Oral.Susp) 30 ml PO DAILY PRN PRN Reason: Constipation Olanzapine (Olanzapine Odt 10 Mg Tab.Rapdis) 20 mg TRANSLINGU BEDTIME [facility] Last Admin: 01/03/25 21:19 Dose: 20 mg Olanzapine (Olanzapine 10 Mg Vial) 10 mg IM BID PRN PRN Reason: if refuses oral per court Olanzapine (Olanzapine Odt 10 Mg Tab.Rapdis) 5 mg TRANSLINGU DAILY [facility] Last Admin: 01/04/25 09:01 Dose: 5 mg Omeprazole (Omeprazole 20 Mg Capsule.) 20 mg PO DAILY@0630 [facility] Last Admin: 01/04/25 09:01 Dose: 20 mg Trazodone HCl (Trazodone Hcl 50 Mg Tablet) 50 mg PO BEDTIME MRX1 PRN PRN Reason: Insomnia Allergies Allergies Allergy/AdvReac Type Severity Reaction Status Date / Time blueberry [Blueberry] Allergy Severe SWELLING Verified 12/25/24 13:30 lisinopril Allergy Intermediate cough Verified 12/25/24 13:30 mushroom Allergy Intermediate SWELLING Verified 12/25/24 13:30 shellfish derived Allergy Unknown UNKNOWN Verified 12/25/24 13:30 [SHELLFISH DERIVED] thioridazine Allergy Unknown Unknown Verified 12/25/24 13:30 tomato [TOMATO] Allergy Unknown UNKNOWN Verified 12/25/24 13:30 CHOCOLATE Allergy Intermediate ITCHING Uncoded 09/04/24 12:35 From MELLARIL Allergy Intermediate SHORTNESS Uncoded 09/04/24 12:35 OF BREATH From THORAZINE Allergy Intermediate SHORTNESS Uncoded 09/04/24 12:35 OF BREATH Assessment & Plan Assessment & Plan (1) Schizophrenia: Qualifiers: Schizophrenia type: undifferentiated schizophrenia Qualified Code(s): F20.3 - Undifferentiated schizophrenia Status: Acute Code(s): F20.9 - Schizophrenia, unspecified (2) HTN (hypertension): Qualifiers: Hypertension type: essential hypertension Qualified Code(s): I10 - Essential (primary) hypertension Status: Acute Code(s): I10 - Essential (primary) hypertension Plan Ms. Smith is a 74 year-old woman with hx of schizophrenia. She was initially assessed by [facility] in the community due to refusing medications, not accepting support for grocery shopping from ACCS team. In the ED, pt found to be hypertensive SBP 230/110, she was started on nifedipine. She was admitted to on 12/26 but had episode of syncope with BP of 89/46, admitted medically, off ani-hypertensive medications now. She does have a kev's and a guardian. Will restart olanzapine with back IM per fariha. PLAN 01/01 continue tx. BP elevated this AM, seen by hospitalist. 01/04 continue tx. Reason for continued inpatient stay Substantial Risk for: inability to function Time Spent With Patient Time: Total time managing care of this patient today ____ minutes.
[2025-01-04 20:00] VITALS: TEMP 36.7; O2SAT 97
[2025-01-04] MEDS: OLANZapine ODT 10 MG TAB.RAPDIS 20 MG TRANSLINGU (20:07)
[2025-01-05] MEDS: Omeprazole 20 MG CAPSULE.DR PO (06:01)
[2025-01-05] MEDS: Atorvastatin Calcium 80 MG TABLET PO (09:23)
[2025-01-05 09:32] VITALS: BP 187/85; PULSE 79; RESP 16; TEMP 36.9; O2SAT 97
[2025-01-05] MEDS: cloNIDine 0.1 MG PATCH.TDWK TRANSDERMA (09:39)
[2025-01-05] MEDS: OLANZapine ODT 10 MG TAB.RAPDIS 5 MG TRANSLINGU (09:40)
[2025-01-05] MEDS: Artificial Tears 15 ML DROPS 2 DROP EYE-BOTH (09:53)
--- NOTE | 2025-01-05 10:17 | P.PNPSI_ITS ---
Subjective Subjective Date of Service: 01/05/25 Reason For Visit: psychosis Subjective Notes: Section 7 Interim History: Pt slept through the night. She reports she has to go back home, people awaiting for her. She is taking medications as prescribed, includes been taking medications more consistently. She continues to report she is . She reports feels baby moving. She denies constipation or abdominal pain. She reports she wants to be discharged. No behavioral concerns. Review of Systems Review of Systems Patient appears to be in no apparent distress skin warm and dry Yes all other systems are reviewed and are negative and Unobtainable due to mental status Mental Status Exam Mental Status Exam Narrative: Appearance: wearing casual clothing, fair hygiene, in NAD Behavior: cooperative Psychomotor: no agitation or retardation noted Speech: mumbles, difficult to understand at times, regular tone, spontaneous TP: disorganized at times TC: wanting to go home Mood: fine Affect: slightly expansive SI: denies HI: denies VH/AH: internally preoccupied Delusions: delusions of being , Insight/judgment: impaired x 2. Memory/cog: alert, oriented to place, month year not situation. Diagnostics Vital Signs (24Hr): Vital Signs - 24 hr 01/04/25 20:00 01/05/25 09:32 Temperature 98.1 F 98.4 F Pulse Rate 79 Respiratory Rate 16 Blood Pressure 187/85 H Pulse Oximetry 97 97 Oxygen Delivery Method Room Air BMI result Body Mass Index 33.5 Medications Medications Current Medications Acetaminophen (Acetaminophen 325 Mg Tablet) 650 mg PO Q6H PRN PRN Reason: Headache/Pain, Scale 1-10 Last Admin: 01/01/25 00:25 Dose: 650 mg Al Hydroxide/Mg Hydroxide (Magnesium Hydrox/Alum Hydrox 30 Ml Oral.Susp) 30 ml PO Q6H PRN PRN Reason: Heartburn/Nausea Artificial Tears (Artificial Tears 15 Ml Drops) 2 drop EYE-BOTH Q4H PRN PRN Reason: Dry Eyes Last Admin: 01/05/25 09:53 Dose: 2 drop Atorvastatin Calcium (Atorvastatin Calcium 80 Mg Tablet) 80 mg PO DAILY EDIN Last Admin: 01/05/25 09:40 Dose: 80 mg Clonidine (Clonidine 0.1 Mg Patch.Tdwk) 0.1 mg TRANSDERMA DAILY EDIN; Protocol Last Admin: 01/05/25 09:39 Dose: 0.1 mg Divalproex Sodium (Divalproex Sodium 250 Mg Tablet.Dr) 250 mg PO BEDTIME [facility] Last Admin: 01/04/25 20:14 Dose: Not Given Docusate Sodium (Docusate Sodium 100 Mg Capsule) 100 mg PO DAILY PRN PRN Reason: constipation Hydroxyzine HCl (Hydroxyzine Hcl 25 Mg Tablet) 25 mg PO Q6H PRN PRN Reason: mild anxiety Magnesium Hydroxide (Milk Of Magnesia 30 Ml Oral.Susp) 30 ml PO DAILY PRN PRN Reason: Constipation Olanzapine (Olanzapine Odt 10 Mg Tab.Rapdis) 20 mg TRANSLINGU BEDTIME [facility] Last Admin: 01/04/25 20:07 Dose: 20 mg Olanzapine (Olanzapine 10 Mg Vial) 10 mg IM BID PRN PRN Reason: if refuses oral per court Olanzapine (Olanzapine Odt 10 Mg Tab.Rapdis) 5 mg TRANSLINGU DAILY [facility] Last Admin: 01/05/25 09:40 Dose: 5 mg Omeprazole (Omeprazole 20 Mg Capsule.) 20 mg PO DAILY@0630 [facility] Last Admin: 01/05/25 06:01 Dose: 20 mg Trazodone HCl (Trazodone Hcl 50 Mg Tablet) 50 mg PO BEDTIME MRX1 PRN PRN Reason: Insomnia Allergies Allergies Allergy/AdvReac Type Severity Reaction Status Date / Time blueberry [Blueberry] Allergy Severe SWELLING Verified 12/25/24 13:30 lisinopril Allergy Intermediate cough Verified 12/25/24 13:30 mushroom Allergy Intermediate SWELLING Verified 12/25/24 13:30 shellfish derived Allergy Unknown UNKNOWN Verified 12/25/24 13:30 [SHELLFISH DERIVED] thioridazine Allergy Unknown Unknown Verified 12/25/24 13:30 tomato [TOMATO] Allergy Unknown UNKNOWN Verified 12/25/24 13:30 CHOCOLATE Allergy Intermediate ITCHING Uncoded 09/04/24 12:35 From MELLARIL Allergy Intermediate SHORTNESS Uncoded 09/04/24 12:35 OF BREATH From THORAZINE Allergy Intermediate SHORTNESS Uncoded 09/04/24 12:35 OF BREATH Assessment & Plan Assessment & Plan (1) Schizophrenia: Qualifiers: Schizophrenia type: undifferentiated schizophrenia Qualified Code(s): F20.3 - Undifferentiated schizophrenia Status: Acute Code(s): F20.9 - Schizophrenia, unspecified (2) HTN (hypertension): Qualifiers: Hypertension type: essential hypertension Qualified Code(s): I10 - Essential (primary) hypertension Status: Acute Code(s): I10 - Essential (primary) hypertension Plan Ms. Smith is a 74 year-old woman with hx of schizophrenia. She was initially assessed by [facility] in the community due to refusing medications, not accepting support for grocery shopping from ACCS team. In the ED, pt found to be hypertensive SBP 230/110, she was started on nifedipine. She was admitted to on 12/26 but had episode of syncope with BP of 89/46, admitted medically, off ani- hypertensive medications now. She does have a kev's and a guardian. Will restart olanzapine with back IM per fariha. PLAN 01/01 continue tx. BP elevated this AM, seen by hospitalist. 01/04 continue tx. 01/05 continue tx. Reason for continued inpatient stay Substantial Risk for: inability to function Time Spent With Patient Time: Total time managing care of this patient today ____ minutes.
--- NOTE | 2025-01-05 12:51 | PM.EVENT ---
Event Note Date of Service: 01/05/25 Event Note: Patient continues with elevated BP readings. Today will start Norvasc 2.5 mgs at hs due to history of DM and allergy to Lisinopril. Nursing to document refusals. Time Spent With Patient Time: Total time managing care of this patient today ____ minutes.
--- NOTE | 2025-01-05 15:26 | PC.NURSE ---
This software writer approached pt 1 hour after initial medication pass this morning. Perinatal Technician wanted to follow up with BP recheck. Pt declined this recommendation.
[2025-01-05 20:00] VITALS: BP 179/90; PULSE 94; RESP 18; TEMP 36.3; O2SAT 97
[2025-01-05] MEDS: Divalproex Sodium 250 MG TABLET.DR PO (21:15)
[2025-01-05] MEDS: OLANZapine ODT 10 MG TAB.RAPDIS 20 MG TRANSLINGU (21:15)
[2025-01-05] MEDS: amLODIPine Besylate 2.5 MG TABLET PO (21:20)
[2025-01-06] MEDS: Omeprazole 20 MG CAPSULE.DR PO (06:35)
[2025-01-06 08:30] VITALS: PULSE 81; RESP 18; TEMP 36.3; O2SAT 98
[2025-01-06] MEDS: OLANZapine ODT 10 MG TAB.RAPDIS 5 MG TRANSLINGU (09:20)
--- NOTE | 2025-01-06 10:17 | P.PNPSI_ITS ---
Subjective Subjective Date of Service: 01/06/25 Reason For Visit: psychosis Subjective Notes: Section 7 Interim History: Pt slept through the night. She continues to report that she is and that worries that medications will harm the baby. Informed there is no evidence of her being . She reports feeling tired. Some abdominal pain. unclear if constipation, will add KUB. Review of Systems Review of Systems Patient appears to be in no apparent distress skin warm and dry Yes all other systems are reviewed and are negative and Unobtainable due to mental status Mental Status Exam Mental Status Exam Narrative: Appearance: wearing casual clothing, fair hygiene, in NAD Behavior: cooperative Psychomotor: no agitation or retardation noted Speech: mumbles, difficult to understand at times, regular tone, spontaneous TP: disorganized at times TC: wanting to go home Mood: fine Affect: slightly expansive SI: denies HI: denies VH/AH: internally preoccupied Delusions: delusions of being , Insight/judgment: impaired x 2. Memory/cog: alert, oriented to place, month year not situation. Diagnostics Vital Signs (24Hr): Vital Signs - 24 hr 01/05/25 20:00 01/06/25 08:30 Temperature 97.3 F 97.4 F Pulse Rate 94 81 Respiratory Rate 18 18 Blood Pressure 179/90 H Pulse Oximetry 97 98 Oxygen Delivery Method Room Air Room Air BMI result Body Mass Index 33.5 Medications Medications Current Medications Acetaminophen (Acetaminophen 325 Mg Tablet) 650 mg PO Q6H PRN PRN Reason: Headache/Pain, Scale 1-10 Last Admin: 01/01/25 00:25 Dose: 650 mg Al Hydroxide/Mg Hydroxide (Magnesium Hydrox/Alum Hydrox 30 Ml Oral.Susp) 30 ml PO Q6H PRN PRN Reason: Heartburn/Nausea Amlodipine Besylate (Amlodipine Besylate 2.5 Mg Tablet) 2.5 mg PO BEDTIME [facility]; Protocol Last Admin: 01/05/25 21:20 Dose: 2.5 mg Artificial Tears (Artificial Tears 15 Ml Drops) 2 drop EYE-BOTH Q4H PRN PRN Reason: Dry Eyes Last Admin: 01/05/25 09:53 Dose: 2 drop Atorvastatin Calcium (Atorvastatin Calcium 80 Mg Tablet) 80 mg PO DAILY [facility] Last Admin: 01/06/25 09:24 Dose: Not Given Divalproex Sodium (Divalproex Sodium 250 Mg Tablet.) 250 mg PO BEDTIME [facility] Last Admin: 01/05/25 21:15 Dose: 250 mg Docusate Sodium (Docusate Sodium 100 Mg Capsule) 100 mg PO DAILY PRN PRN Reason: constipation Hydroxyzine HCl (Hydroxyzine Hcl 25 Mg Tablet) 25 mg PO Q6H PRN PRN Reason: mild anxiety Magnesium Hydroxide (Milk Of Magnesia 30 Ml Oral.Susp) 30 ml PO DAILY PRN PRN Reason: Constipation Olanzapine (Olanzapine Odt 10 Mg Tab.Rapdis) 20 mg TRANSLINGU BEDTIME [facility] Last Admin: 01/05/25 21:15 Dose: 20 mg Olanzapine (Olanzapine 10 Mg Vial) 10 mg IM BID PRN PRN Reason: if refuses oral per court Olanzapine (Olanzapine Odt 10 Mg Tab.Rapdis) 5 mg TRANSLINGU DAILY [facility] Last Admin: 01/06/25 09:20 Dose: 5 mg Omeprazole (Omeprazole 20 Mg Capsule.) 20 mg PO DAILY@0630 [facility] Last Admin: 01/06/25 06:35 Dose: 20 mg Trazodone HCl (Trazodone Hcl 50 Mg Tablet) 50 mg PO BEDTIME MRX1 PRN PRN Reason: Insomnia Allergies Allergies Allergy/AdvReac Type Severity Reaction Status Date / Time blueberry [Blueberry] Allergy Severe SWELLING Verified 12/25/24 13:30 lisinopril Allergy Intermediate cough Verified 12/25/24 13:30 mushroom Allergy Intermediate SWELLING Verified 12/25/24 13:30 shellfish derived Allergy Unknown UNKNOWN Verified 12/25/24 13:30 [SHELLFISH DERIVED] thioridazine Allergy Unknown Unknown Verified 12/25/24 13:30 tomato [TOMATO] Allergy Unknown UNKNOWN Verified 12/25/24 13:30 CHOCOLATE Allergy Intermediate ITCHING Uncoded 09/04/24 12:35 From MELLARIL Allergy Intermediate SHORTNESS Uncoded 09/04/24 12:35 OF BREATH From THORAZINE Allergy Intermediate SHORTNESS Uncoded 09/04/24 12:35 OF BREATH Assessment & Plan Assessment & Plan (1) Schizophrenia: Qualifiers: Schizophrenia type: undifferentiated schizophrenia Qualified Code(s): F20.3 - Undifferentiated schizophrenia Status: Acute Code(s): F20.9 - Schizophrenia, unspecified (2) HTN (hypertension): Qualifiers: Hypertension type: essential hypertension Qualified Code(s): I10 - Essential (primary) hypertension Status: Acute Code(s): I10 - Essential (primary) hypertension Plan Ms. Smith is a 74 year-old woman with hx of schizophrenia. She was initially assessed by [facility] in the community due to refusing medications, not accepting support for grocery shopping from ACCS team. In the ED, pt found to be hypertensive SBP 230/110, she was started on nifedipine. She was admitted to on 12/26 but had episode of syncope with BP of 89/46, admitted medically, off ani- hypertensive medications now. She does have a kev's and a guardian. Will restart olanzapine with back IM per fariha. PLAN 01/01 continue tx. BP elevated this AM, seen by hospitalist. 01/04 continue tx. 01/05 continue tx. 01/06 continues with delusions of being . No aggression. reports some abdominal discomfort, will add KUB to r/o constipation. Reason for continued inpatient stay Substantial Risk for: inability to function Time Spent With Patient Time: Total time managing care of this patient today ____ minutes.
[2025-01-06] MEDS: Artificial Tears 15 ML DROPS 2 DROP EYE-BOTH (13:56)
[2025-01-06 20:00] VITALS: RESP 18; TEMP 36.3
[2025-01-06 20:14] VITALS: BP 148/78
[2025-01-06] MEDS: OLANZapine ODT 10 MG TAB.RAPDIS 20 MG TRANSLINGU (20:14)
[2025-01-06] MEDS: amLODIPine Besylate 2.5 MG TABLET PO (20:14)
[2025-01-07] MEDS: Omeprazole 20 MG CAPSULE.DR PO (06:10)
[2025-01-07 08:00] VITALS: BP 143/78; PULSE 82; RESP 18; TEMP 36.6; O2SAT 99
[2025-01-07] MEDS: Artificial Tears 15 ML DROPS 2 DROP EYE-BOTH (09:44)
[2025-01-07] MEDS: OLANZapine ODT 10 MG TAB.RAPDIS 5 MG TRANSLINGU (09:46)
--- NOTE | 2025-01-07 15:59 | HO.PSYCHPN ---
Subjective Subjective Date of Service: 01/07/25 Reason For Visit: psychosis Interim History: bored, taking a nap. asking about her xray. no other complaints or requests. Mental Status Exam Mental Status Exam Narrative: Appearance: wearing casual clothing, fair hygiene, in NAD Behavior: cooperative Psychomotor: no agitation or retardation noted Speech: mumbles, difficult to understand at times, regular tone, spontaneous TP: disorganized at times TC: wanting to go home Mood: fine Affect: slightly expansive SI: none expressed HI: none expressed VH/AH: internally preoccupied Delusions: delusions of being , Insight/judgment: impaired x 2. Memory/cog: alert, oriented to place, month year not situation. Diagnostics Vital Signs (24Hr): Vital Signs - 24 hr 01/06/25 20:00 01/06/25 20:14 01/07/25 08:00 Temperature 97.4 F 97.9 F Pulse Rate 82 Respiratory Rate 18 18 Blood Pressure 148/78 H 143/78 H Pulse Oximetry 99 Oxygen Delivery Method Room Air BMI result Body Mass Index 33.5 Imaging Radiology Impressions: ITS Impressions KUB X-Ray 01/06/25 16:35 IMPRESSION: Moderate to large amount of stool throughout the colon. Electronically signed by: Kevin Leonard MD 01/07/2025 07:59 AM EDT RP Medications Medications Current Medications Acetaminophen (Acetaminophen 325 Mg Tablet) 650 mg PO Q6H PRN PRN Reason: Headache/Pain, Scale 1-10 Last Admin: 01/01/25 00:25 Dose: 650 mg Al Hydroxide/Mg Hydroxide (Magnesium Hydrox/Alum Hydrox 30 Ml Oral.Susp) 30 ml PO Q6H PRN PRN Reason: Heartburn/Nausea Amlodipine Besylate (Amlodipine Besylate 2.5 Mg Tablet) 2.5 mg PO BEDTIME [facility]; Protocol Last Admin: 01/06/25 20:14 Dose: 2.5 mg Artificial Tears (Artificial Tears 15 Ml Drops) 2 drop EYE-BOTH Q4H PRN PRN Reason: Dry Eyes Last Admin: 01/07/25 09:44 Dose: 2 drop Atorvastatin Calcium (Atorvastatin Calcium 80 Mg Tablet) 80 mg PO DAILY EDIN Last Admin: 01/07/25 09:48 Dose: Not Given Divalproex Sodium (Divalproex Sodium 250 Mg Tablet.) 250 mg PO BEDTIME [facility] Last Admin: 01/06/25 20:24 Dose: Not Given Docusate Sodium (Docusate Sodium 100 Mg Capsule) 100 mg PO DAILY PRN PRN Reason: constipation Hydroxyzine HCl (Hydroxyzine Hcl 25 Mg Tablet) 25 mg PO Q6H PRN PRN Reason: mild anxiety Magnesium Hydroxide (Milk Of Magnesia 30 Ml Oral.Susp) 30 ml PO DAILY PRN PRN Reason: Constipation Olanzapine (Olanzapine Odt 10 Mg Tab.Rapdis) 20 mg TRANSLINGU BEDTIME [facility] Last Admin: 01/06/25 20:14 Dose: 20 mg Olanzapine (Olanzapine 10 Mg Vial) 10 mg IM BID PRN PRN Reason: if refuses oral per court Olanzapine (Olanzapine Odt 10 Mg Tab.Rapdis) 5 mg TRANSLINGU DAILY [facility] Last Admin: 01/07/25 09:46 Dose: 5 mg Omeprazole (Omeprazole 20 Mg Capsule.Dr) 20 mg PO DAILY@0630 [facility] Last Admin: 01/07/25 06:10 Dose: 20 mg Trazodone HCl (Trazodone Hcl 50 Mg Tablet) 50 mg PO BEDTIME MRX1 PRN PRN Reason: Insomnia Allergies Allergies Allergy/AdvReac Type Severity Reaction Status Date / Time blueberry [Blueberry] Allergy Severe SWELLING Verified 12/25/24 13:30 lisinopril Allergy Intermediate cough Verified 12/25/24 13:30 mushroom Allergy Intermediate SWELLING Verified 12/25/24 13:30 shellfish derived Allergy Unknown UNKNOWN Verified 12/25/24 13:30 [SHELLFISH DERIVED] thioridazine Allergy Unknown Unknown Verified 12/25/24 13:30 tomato [TOMATO] Allergy Unknown UNKNOWN Verified 12/25/24 13:30 CHOCOLATE Allergy Intermediate ITCHING Uncoded 09/04/24 12:35 From MELLARIL Allergy Intermediate SHORTNESS Uncoded 09/04/24 12:35 OF BREATH From THORAZINE Allergy Intermediate SHORTNESS Uncoded 09/04/24 12:35 OF BREATH Assessment & Plan Assessment & Plan (1) Schizophrenia: Qualifiers: Schizophrenia type: undifferentiated schizophrenia Qualified Code(s): F20.3 - Undifferentiated schizophrenia Status: Acute Code(s): F20.9 - Schizophrenia, unspecified (2) HTN (hypertension): Qualifiers: Hypertension type: essential hypertension Qualified Code(s): I10 - Essential (primary) hypertension Status: Acute Code(s): I10 - Essential (primary) hypertension Plan Ms. Smith is a 74 year-old woman with hx of schizophrenia. She was initially assessed by [facility] in the community due to refusing medications, not accepting support for grocery shopping from ACCS team. In the ED, pt found to be hypertensive SBP 230/110, she was started on nifedipine. She was admitted to [facility] on 12/26 but had episode of syncope with BP of 89/46, admitted medically, off ani-hypertensive medications now. She does have a kev's and a guardian. Will restart olanzapine with back IM per fariha. PLAN 01/01 continue tx. BP elevated this AM, seen by hospitalist. 01/04 continue tx. 01/05 continue tx. 01/06 continues with delusions of being . No aggression. reports some abdominal discomfort, will add KUB to r/o constipation. 01/07: mod/severe stool burden per XRAY. miralax daily PRN, one dose NOW. otherwise continue current mgmt. Reason for continued inpatient stay Substantial Risk for: harm to others and inability to function Time Spent With Patient Time: Total time managing care of this patient today ____ minutes.
[2025-01-07 20:00] VITALS: TEMP 36.6
[2025-01-07] MEDS: OLANZapine ODT 10 MG TAB.RAPDIS 20 MG TRANSLINGU (21:10)
[2025-01-08 08:00] VITALS: PULSE 84; RESP 14; TEMP 36.3; O2SAT 97
[2025-01-08] MEDS: OLANZapine ODT 10 MG TAB.RAPDIS 5 MG TRANSLINGU (09:42)
[2025-01-08] MEDS: polyethylene glycoL 3350 17 GM POWD.PACK PO (09:43)
--- NOTE | 2025-01-08 13:34 | P.PNPSI_ITS ---
Subjective Subjective Date of Service: 01/08/25 Reason For Visit: psychosis Interim History: active, in milieu, amie CROUCH from across the room. asking for discharge, states she has a dental appointment next week and also an eye appointment. MD declines, redirects to speak with team on saturday. on being asked if she has any other questions or concerns, she makes a statement about wanting to have sex but not being allowed to. confirms that is not allowed on the unit. per staff, refused VPA but took zyprexa. attended 1 group yesterday. refused vital signs. Mental Status Exam Mental Status Exam Narrative: Appearance: wearing casual clothing, fair hygiene, in NAD Behavior: cooperative Psychomotor: no agitation or retardation noted Speech: mumbles, difficult to understand at times, regular tone, spontaneous, loud TP: disorganized at times TC: wanting to go home, wanting sex Mood: not assessed Affect: slightly expansive SI: none expressed HI: none expressed VH/AH: internally preoccupied Delusions: none expressed Insight/judgment: impaired x 2. Memory/cog: alert, oriented to place, month year not situation. Diagnostics Vital Signs (24Hr): Vital Signs - 24 hr 01/07/25 20:00 01/08/25 08:00 Temperature 97.8 F 97.4 F Pulse Rate 84 Respiratory Rate 14 Pulse Oximetry 97 Oxygen Delivery Method Room Air BMI result Body Mass Index 33.5 Imaging Radiology Impressions: ITS Impressions KUB X-Ray 01/06/25 16:35 IMPRESSION: Moderate to large amount of stool throughout the colon. Electronically signed by: Kevin Leonard MD 01/07/2025 07:59 AM EDT Medications Medications Current Medications Acetaminophen (Acetaminophen 325 Mg Tablet) 650 mg PO Q6H PRN PRN Reason: Headache/Pain, Scale 1-10 Last Admin: 01/01/25 00:25 Dose: 650 mg Al Hydroxide/Mg Hydroxide (Magnesium Hydrox/Alum Hydrox 30 Ml Oral.Susp) 30 ml PO Q6H PRN PRN Reason: Heartburn/Nausea Amlodipine Besylate (Amlodipine Besylate 2.5 Mg Tablet) 2.5 mg PO BEDTIME [facility]; Protocol Last Admin: 01/07/25 21:35 Dose: Not Given Artificial Tears (Artificial Tears 15 Ml Drops) 2 drop EYE-BOTH Q4H PRN PRN Reason: Dry Eyes Last Admin: 01/07/25 09:44 Dose: 2 drop Atorvastatin Calcium (Atorvastatin Calcium 80 Mg Tablet) 80 mg PO DAILY [facility] Last Admin: 01/08/25 09:45 Dose: Not Given Divalproex Sodium (Divalproex Sodium 250 Mg Tablet.Dr) 250 mg PO BEDTIME [facility] Last Admin: 01/07/25 21:37 Dose: Not Given Docusate Sodium (Docusate Sodium 100 Mg Capsule) 100 mg PO BID [facility] Last Admin: 01/08/25 09:45 Dose: Not Given Hydroxyzine HCl (Hydroxyzine Hcl 25 Mg Tablet) 25 mg PO Q6H PRN PRN Reason: mild anxiety Magnesium Hydroxide (Milk Of Magnesia 30 Ml Oral.Susp) 30 ml PO DAILY PRN PRN Reason: Constipation Olanzapine (Olanzapine Odt 10 Mg Tab.Rapdis) 20 mg TRANSLINGU BEDTIME [facility] Last Admin: 01/07/25 21:10 Dose: 20 mg Olanzapine (Olanzapine 10 Mg Vial) 10 mg IM BID PRN PRN Reason: if refuses oral per court Olanzapine (Olanzapine Odt 10 Mg Tab.Rapdis) 5 mg TRANSLINGU DAILY [facility] Last Admin: 01/08/25 09:42 Dose: 5 mg Omeprazole (Omeprazole 20 Mg Capsule.Dr) 20 mg PO DAILY@0630 [facility] Last Admin: 01/08/25 06:00 Dose: Not Given Polyethylene Glycol (Polyethylene Glycol 3350 17 Gm Powd.Pack) 17 gm PO DAILY [facility] Last Admin: 01/08/25 09:43 Dose: 17 gm Trazodone HCl (Trazodone Hcl 50 Mg Tablet) 50 mg PO BEDTIME MRX1 PRN PRN Reason: Insomnia Allergies Allergies Allergy/AdvReac Type Severity Reaction Status Date / Time blueberry [Blueberry] Allergy Severe SWELLING Verified 12/25/24 13:30 lisinopril Allergy Intermediate cough Verified 12/25/24 13:30 mushroom Allergy Intermediate SWELLING Verified 12/25/24 13:30 shellfish derived Allergy Unknown UNKNOWN Verified 12/25/24 13:30 [SHELLFISH DERIVED] thioridazine Allergy Unknown Unknown Verified 12/25/24 13:30 tomato [TOMATO] Allergy Unknown UNKNOWN Verified 12/25/24 13:30 CHOCOLATE Allergy Intermediate ITCHING Uncoded 09/04/24 12:35 From MELLARIL Allergy Intermediate SHORTNESS Uncoded 09/04/24 12:35 OF BREATH From THORAZINE Allergy Intermediate SHORTNESS Uncoded 09/04/24 12:35 OF BREATH Assessment & Plan Assessment & Plan (1) Schizophrenia: Qualifiers: Schizophrenia type: undifferentiated schizophrenia Qualified Code(s): F20.3 - Undifferentiated schizophrenia Status: Acute Code(s): F20.9 - Schizophrenia, unspecified (2) HTN (hypertension): Qualifiers: Hypertension type: essential hypertension Qualified Code(s): I10 - Essential (primary) hypertension Status: Acute Code(s): I10 - Essential (primary) hypertension Plan Ms. Smith is a 74 year-old woman with hx of schizophrenia. She was initially assessed by [facility] in the community due to refusing medications, not accepting support for grocery shopping from ACCS team. In the ED, pt found to be hypertensive SBP 230/110, she was started on nifedipine. She was admitted to on 12/26 but had episode of syncope with BP of 89/46, admitted medically, off ani- hypertensive medications now. She does have a kve's and a guardian. Will restart olanzapine with back IM per fariha. PLAN 01/01 continue tx. BP elevated this AM, seen by hospitalist. 01/04 continue tx. 01/05 continue tx. 01/06 continues with delusions of being . No aggression. reports some abdominal discomfort, will add KUB to r/o constipation. 01/07: mod/severe stool burden per XRAY. miralax daily PRN, one dose NOW. otherwise continue current mgmt. 01/08: refused VPA. hypersexual. took zyprexa. continue current mgmt. Reason for continued inpatient stay Substantial Risk for: inability to function and rapid decompensation Time Spent With Patient Time: Total time managing care of this patient today ____ minutes.
[2025-01-08] MEDS: Divalproex Sodium 250 MG TABLET.DR PO (20:14)
[2025-01-08] MEDS: OLANZapine ODT 10 MG TAB.RAPDIS 20 MG TRANSLINGU (20:14)
[2025-01-08] MEDS: Docusate Sodium 100 MG CAPSULE PO (20:15)
[2025-01-09] MEDS: Omeprazole 20 MG CAPSULE.DR PO (06:11)
--- NOTE | 2025-01-09 07:43 | HO.PSYCHPN ---
Subjective Subjective Date of Service: 01/09/25 Reason For Visit: psychosis Subjective Notes: Section 7 Interim History: Would not engage with blurb writer. As per nursing has been declining vitals. Refusing medications but excepting Jack ordered medications. Medication Compliance: Yes ( As per Fariha) Side effects from medications: No Attending Groups: No Review of Systems Acute medical concerns: No Review of Systems Review of Systems Yes Unobtainable due to mental status Mental Status Exam Mental Status Exam Narrative: in bed. Appropriately dressed. Fair hygiene. Would not engage with blurb writer Diagnostics Vital Signs (24Hr): Vital Signs - 24 hr 01/08/25 08:00 Temperature 97.4 F Pulse Rate 84 Respiratory Rate 14 Pulse Oximetry 97 Oxygen Delivery Method Room Air BMI result Body Mass Index 33.5 Imaging Radiology Impressions: ITS Impressions KUB X-Ray 01/06/25 16:35 IMPRESSION: Moderate to large amount of stool throughout the colon. Electronically signed by: Kevin Leonard MD 01/07/2025 07:59 AM EDT RP Medications Medications Current Medications Acetaminophen (Acetaminophen 325 Mg Tablet) 650 mg PO Q6H PRN PRN Reason: Headache/Pain, Scale 1-10 Last Admin: 01/01/25 00:25 Dose: 650 mg Al Hydroxide/Mg Hydroxide (Magnesium Hydrox/Alum Hydrox 30 Ml Oral.Susp) 30 ml PO Q6H PRN PRN Reason: Heartburn/Nausea Amlodipine Besylate (Amlodipine Besylate 2.5 Mg Tablet) 2.5 mg PO BEDTIME [facility]; Protocol Last Admin: 01/08/25 22:23 Dose: Not Given Artificial Tears (Artificial Tears 15 Ml Drops) 2 drop EYE-BOTH Q4H PRN PRN Reason: Dry Eyes Last Admin: 01/07/25 09:44 Dose: 2 drop Atorvastatin Calcium (Atorvastatin Calcium 80 Mg Tablet) 80 mg PO DAILY [facility] Last Admin: 01/08/25 09:45 Dose: Not Given Divalproex Sodium (Divalproex Sodium 250 Mg Tablet.Dr) 250 mg PO BEDTIME EDIN Last Admin: 01/08/25 20:14 Dose: 250 mg Docusate Sodium (Docusate Sodium 100 Mg Capsule) 100 mg PO BID [facility] Last Admin: 01/08/25 20:15 Dose: 100 mg Hydroxyzine HCl (Hydroxyzine Hcl 25 Mg Tablet) 25 mg PO Q6H PRN PRN Reason: mild anxiety Magnesium Hydroxide (Milk Of Magnesia 30 Ml Oral.Susp) 30 ml PO DAILY PRN PRN Reason: Constipation Olanzapine (Olanzapine Odt 10 Mg Tab.Rapdis) 20 mg TRANSLINGU BEDTIME [facility] Last Admin: 01/08/25 20:14 Dose: 20 mg Olanzapine (Olanzapine 10 Mg Vial) 10 mg IM BID PRN PRN Reason: if refuses oral per court Olanzapine (Olanzapine Odt 10 Mg Tab.Rapdis) 5 mg TRANSLINGU DAILY [facility] Last Admin: 01/08/25 09:42 Dose: 5 mg Omeprazole (Omeprazole 20 Mg Capsule.Dr) 20 mg PO DAILY@0630 [facility] Last Admin: 01/09/25 06:11 Dose: 20 mg Polyethylene Glycol (Polyethylene Glycol 3350 17 Gm Powd.Pack) 17 gm PO DAILY [facility] Last Admin: 01/08/25 09:43 Dose: 17 gm Trazodone HCl (Trazodone Hcl 50 Mg Tablet) 50 mg PO BEDTIME MRX1 PRN PRN Reason: Insomnia Allergies Allergies Allergy/AdvReac Type Severity Reaction Status Date / Time blueberry [Blueberry] Allergy Severe SWELLING Verified 12/25/24 13:30 lisinopril Allergy Intermediate cough Verified 12/25/24 13:30 mushroom Allergy Intermediate SWELLING Verified 12/25/24 13:30 shellfish derived Allergy Unknown UNKNOWN Verified 12/25/24 13:30 [SHELLFISH DERIVED] thioridazine Allergy Unknown Unknown Verified 12/25/24 13:30 tomato [TOMATO] Allergy Unknown UNKNOWN Verified 12/25/24 13:30 CHOCOLATE Allergy Intermediate ITCHING Uncoded 09/04/24 12:35 From MELLARIL Allergy Intermediate SHORTNESS Uncoded 09/04/24 12:35 OF BREATH From THORAZINE Allergy Intermediate SHORTNESS Uncoded 09/04/24 12:35 OF BREATH Assessment & Plan Assessment & Plan (1) Schizophrenia: Qualifiers: Schizophrenia type: undifferentiated schizophrenia Qualified Code(s): F20.3 - Undifferentiated schizophrenia Status: Acute Code(s): F20.9 - Schizophrenia, unspecified (2) HTN (hypertension): Qualifiers: Hypertension type: essential hypertension Qualified Code(s): I10 - Essential (primary) hypertension Status: Acute Code(s): I10 - Essential (primary) hypertension Plan Ms. Smith is a 74 year-old woman with hx of schizophrenia. She was initially assessed by [facility] in the community due to refusing medications, not accepting support for grocery shopping from ACCS team. In the ED, pt found to be hypertensive SBP 230/110, she was started on nifedipine. She was admitted to [facility] on 12/26 but had episode of syncope with BP of 89/46, admitted medically, off ani-hypertensive medications now. She does have a kev's and a guardian. Will restart olanzapine with back IM per fariha. PLAN 01/01 continue tx. BP elevated this AM, seen by hospitalist. 01/04 continue tx. 01/05 continue tx. 01/06 continues with delusions of being . No aggression. reports some abdominal discomfort, will add KUB to r/o constipation. 01/07: mod/severe stool burden per XRAY. miralax daily PRN, one dose NOW. otherwise continue current mgmt. 01/08: refused VPA. hypersexual. took zyprexa. continue current mgmt. 01/09/2025: No changes to primary team treatment plan Reason for continued inpatient stay Substantial Risk for: inability to function Time Spent With Patient Time: Total time managing care of this patient today ____ minutes.
[2025-01-09 08:00] VITALS: RESP 18
[2025-01-09] MEDS: OLANZapine ODT 10 MG TAB.RAPDIS 5 MG TRANSLINGU (08:39)
[2025-01-09] MEDS: Artificial Tears 15 ML DROPS 2 DROP EYE-BOTH (14:53)
--- NOTE | 2025-01-09 15:22 | PC.NURSE ---
Patient pleasant on approach, however, refusing vital signs and most of am medications. Pt accepted Olanzapine, refused Atorvastatin, Colace and Miralax. DR Hardy notified. Pt stated she is feeling good . Denies anxiety and depression. Sometimes she hears voices but did not hear any today or recent days. Mostly calm, relaxed. At times verbalizing wanting to go home. Visible in a milieu, keeping to self or resting in her bed. Consumes full meals. PRN eye drops. Will continue to monitor.
[2025-01-09] MEDS: Docusate Sodium 100 MG CAPSULE PO (20:26)
[2025-01-09] MEDS: Divalproex Sodium 250 MG TABLET.DR PO (20:26)
[2025-01-09] MEDS: OLANZapine ODT 10 MG TAB.RAPDIS 20 MG TRANSLINGU (20:27)
[2025-01-09 21:14] VITALS: BP 188/84; PULSE 87
[2025-01-09] MEDS: amLODIPine Besylate 2.5 MG TABLET PO (21:45)
[2025-01-10] MEDS: Omeprazole 20 MG CAPSULE.DR PO (05:46)
[2025-01-10] MEDS: Artificial Tears 15 ML DROPS 2 DROP EYE-BOTH (06:37)
[2025-01-10] MEDS: OLANZapine ODT 10 MG TAB.RAPDIS 5 MG TRANSLINGU (09:38)
[2025-01-10] MEDS: Atorvastatin Calcium 80 MG TABLET PO (09:38)
[2025-01-10] MEDS: Docusate Sodium 100 MG CAPSULE PO (09:39)
[2025-01-10] MEDS: polyethylene glycoL 3350 17 GM POWD.PACK PO (09:39)
--- NOTE | 2025-01-10 17:23 | HO.PSYCHPN ---
Subjective Subjective Date of Service: 01/10/25 Reason For Visit: psychosis Subjective Notes: Section 12B (commitment hearing pending) Medical Problems Affecting Mental Status: No Interim History: Engaging frequently with staff. Reports eating and sleeping OK. Concerned about her right index finger which she says was broken by being crushed in a door. Wants a cream for it. Obvious deformity from old injury. No open areas, no erythema. Asked me if she thought it was possible that she might have more children. Stated that she is 49 years old. No hypersexuality. Medication Compliance: Yes Side effects from medications: Yes (tired) Attending Groups: Yes Review of Systems Acute medical concerns: No Medical Review of Systems: unchanged Mental Status Exam Mental Status Exam Patient Appearance: Well Grooomed Patient Orientation: Person, Place, Time and Situation Level of Consciousness: Alert Patient Behavior: Appropriate and Talkative Affect Description: Cheerful Patient Cognition Impaired: No Ability to Follow Directions: Good Speech Pattern: Poor Articulation Memory Description: Intact Hallucinations: None (denies but may be internally stimulated) Delusions: Paranoid Ideation (fears that her enemies want to kill her) Thought Process: Intact Thought Content: positive for Circumstantial and positive for Perseveration Depressive Symptoms: Increased Fatigue Judgement: Fair Diagnostics Vital Signs (24Hr): Vital Signs - 24 hr 01/09/25 21:14 Pulse Rate 87 Blood Pressure 188/84 H BMI result Body Mass Index 33.5 Imaging Radiology Impressions: ITS Impressions KUB X-Ray 01/06/25 16:35 IMPRESSION: Moderate to large amount of stool throughout the colon. Electronically signed by: Kevin Leonard MD 01/07/2025 07:59 AM EDT Medications Medications Current Medications Acetaminophen (Acetaminophen 325 Mg Tablet) 650 mg PO Q6H PRN PRN Reason: Headache/Pain, Scale 1-10 Last Admin: 01/01/25 00:25 Dose: 650 mg Al Hydroxide/Mg Hydroxide (Magnesium Hydrox/Alum Hydrox 30 Ml Oral.Susp) 30 ml PO Q6H PRN PRN Reason: Heartburn/Nausea Amlodipine Besylate (Amlodipine Besylate 2.5 Mg Tablet) 2.5 mg PO BEDTIME EDIN; Protocol Last Admin: 01/09/25 21:45 Dose: 2.5 mg Artificial Tears (Artificial Tears 15 Ml Drops) 2 drop EYE-BOTH Q4H PRN PRN Reason: Dry Eyes Last Admin: 01/10/25 06:37 Dose: 2 drop Atorvastatin Calcium (Atorvastatin Calcium 80 Mg Tablet) 80 mg PO DAILY [facility] Last Admin: 01/10/25 09:38 Dose: 80 mg Divalproex Sodium (Divalproex Sodium 250 Mg Tablet.Dr) 250 mg PO BEDTIME [facility] Last Admin: 01/09/25 20:26 Dose: 250 mg Docusate Sodium (Docusate Sodium 100 Mg Capsule) 100 mg PO BID [facility] Last Admin: 01/10/25 09:39 Dose: 100 mg Hydroxyzine HCl (Hydroxyzine Hcl 25 Mg Tablet) 25 mg PO Q6H PRN PRN Reason: mild anxiety Magnesium Hydroxide (Milk Of Magnesia 30 Ml Oral.Susp) 30 ml PO DAILY PRN PRN Reason: Constipation Olanzapine (Olanzapine Odt 10 Mg Tab.Rapdis) 20 mg TRANSLINGU BEDTIME [facility] Last Admin: 01/09/25 20:27 Dose: 20 mg Olanzapine (Olanzapine 10 Mg Vial) 10 mg IM BID PRN PRN Reason: if refuses oral per court Olanzapine (Olanzapine Odt 10 Mg Tab.Rapdis) 5 mg TRANSLINGU DAILY [facility] Last Admin: 01/10/25 09:38 Dose: 5 mg Omeprazole (Omeprazole 20 Mg Capsule.Dr) 20 mg PO DAILY@0630 [facility] Last Admin: 01/10/25 05:46 Dose: 20 mg Polyethylene Glycol (Polyethylene Glycol 3350 17 Gm Powd.Pack) 17 gm PO DAILY [facility] Last Admin: 01/10/25 09:39 Dose: 17 gm Trazodone HCl (Trazodone Hcl 50 Mg Tablet) 50 mg PO BEDTIME MRX1 PRN PRN Reason: Insomnia Allergies Allergies Allergy/AdvReac Type Severity Reaction Status Date / Time blueberry [Blueberry] Allergy Severe SWELLING Verified 12/25/24 13:30 lisinopril Allergy Intermediate cough Verified 12/25/24 13:30 mushroom Allergy Intermediate SWELLING Verified 12/25/24 13:30 shellfish derived Allergy Unknown UNKNOWN Verified 12/25/24 13:30 [SHELLFISH DERIVED] thioridazine Allergy Unknown Unknown Verified 12/25/24 13:30 tomato [TOMATO] Allergy Unknown UNKNOWN Verified 12/25/24 13:30 CHOCOLATE Allergy Intermediate ITCHING Uncoded 09/04/24 12:35 From MELLARIL Allergy Intermediate SHORTNESS Uncoded 09/04/24 12:35 OF BREATH From THORAZINE Allergy Intermediate SHORTNESS Uncoded 09/04/24 12:35 OF BREATH Assessment & Plan Assessment & Plan (1) Schizophrenia: Qualifiers: Schizophrenia type: undifferentiated schizophrenia Qualified Code(s): F20.3 - Undifferentiated schizophrenia Status: Acute Code(s): F20.9 - Schizophrenia, unspecified (2) HTN (hypertension): Qualifiers: Hypertension type: essential hypertension Qualified Code(s): I10 - Essential (primary) hypertension Status: Acute Code(s): I10 - Essential (primary) hypertension Plan Ms. Smith is a 74 year-old woman with hx of schizophrenia. She was initially assessed by [facility] in the community due to refusing medications, not accepting support for grocery shopping from ACCS team. In the ED, pt found to be hypertensive SBP 230/110, she was started on nifedipine. She was admitted to [facility] on 12/26 but had episode of syncope with BP of 89/46, admitted medically, off ani-hypertensive medications now. She does have a kev's and a guardian. Will restart olanzapine with back IM per fariha. PLAN 01/01 continue tx. BP elevated this AM, seen by hospitalist. 01/04 continue tx. 01/05 continue tx. 01/06 continues with delusions of being . No aggression. reports some abdominal discomfort, will add KUB to r/o constipation. 01/07: mod/severe stool burden per XRAY. miralax daily PRN, one dose NOW. otherwise continue current mgmt. 01/08: refused VPA. hypersexual. took zyprexa. continue current mgmt. 01/09/2025: No changes to primary team treatment plan 01/10: increase depakote to 500 mg nightly Reason for continued inpatient stay Substantial Risk for: inability to function Time Spent With Patient Time: Total time managing care of this patient today ____ minutes.
[2025-01-10 20:00] VITALS: BP 185/80; PULSE 85; RESP 16; TEMP 36.6; O2SAT 98
[2025-01-10 20:15] VITALS: BP 185/80
[2025-01-10] MEDS: amLODIPine Besylate 2.5 MG TABLET PO (20:15)
[2025-01-10] MEDS: OLANZapine ODT 10 MG TAB.RAPDIS 20 MG TRANSLINGU (20:15)
--- NOTE | 2025-01-10 21:01 | PC.NURSE ---
Patient took her HS meds except for Colace which she refused. As for Divalproex she took half of the ordered dose, multiple attempts. pairer Craig Diego notified by sara.
[2025-01-11] MEDS: Omeprazole 20 MG CAPSULE.DR PO (05:54)
[2025-01-11] MEDS: Artificial Tears 15 ML DROPS 2 DROP EYE-BOTH ×2 (06:00→09:04)
--- NOTE | 2025-01-11 08:56 | HO.PSYCHPN ---
Subjective Subjective Date of Service: 01/11/25 Reason For Visit: psychosis Subjective Notes: Section 7 Interim History: Slept all night. She continues to report that she is . She reports pain on right index finger, will order capsaisan. No SI/HI. wanting to leave. declined depakote. but does take olanzapine. No behavioral concerns. Medication Compliance: Intermittent Review of Systems Review of Systems Patient appears to be in no apparent distress skin warm and dry Yes all other systems are reviewed and are negative and Unobtainable due to mental status Diagnostics Vital Signs (24Hr): Vital Signs - 24 hr 01/10/25 20:00 01/10/25 20:15 Temperature 97.9 F Pulse Rate 85 Respiratory Rate 16 Blood Pressure 185/80 H 185/80 H Pulse Oximetry 98 Oxygen Delivery Method Room Air BMI result Body Mass Index 33.5 Imaging Radiology Impressions: ITS Impressions KUB X-Ray 01/06/25 16:35 IMPRESSION: Moderate to large amount of stool throughout the colon. Electronically signed by: Kevin Leonard MD 01/07/2025 07:59 AM EDT RP Medications Medications Current Medications Acetaminophen (Acetaminophen 325 Mg Tablet) 650 mg PO Q6H PRN PRN Reason: Headache/Pain, Scale 1-10 Last Admin: 01/01/25 00:25 Dose: 650 mg Al Hydroxide/Mg Hydroxide (Magnesium Hydrox/Alum Hydrox 30 Ml Oral.Susp) 30 ml PO Q6H PRN PRN Reason: Heartburn/Nausea Amlodipine Besylate (Amlodipine Besylate 2.5 Mg Tablet) 2.5 mg PO BEDTIME EDIN; Protocol Last Admin: 01/10/25 20:15 Dose: 2.5 mg Artificial Tears (Artificial Tears 15 Ml Drops) 2 drop EYE-BOTH Q4H PRN PRN Reason: Dry Eyes Last Admin: 01/11/25 06:00 Dose: 2 drop Atorvastatin Calcium (Atorvastatin Calcium 80 Mg Tablet) 80 mg PO DAILY [facility] Last Admin: 01/10/25 09:38 Dose: 80 mg Divalproex Sodium (Divalproex Sodium 500 Mg Tablet.) 500 mg PO BEDTIME EDIN Docusate Sodium (Docusate Sodium 100 Mg Capsule) 100 mg PO BID [facility] Last Admin: 01/10/25 20:25 Dose: Not Given Hydroxyzine HCl (Hydroxyzine Hcl 25 Mg Tablet) 25 mg PO Q6H PRN PRN Reason: mild anxiety Magnesium Hydroxide (Milk Of Magnesia 30 Ml Oral.Susp) 30 ml PO DAILY PRN PRN Reason: Constipation Olanzapine (Olanzapine Odt 10 Mg Tab.Rapdis) 20 mg TRANSLINGU BEDTIME [facility] Last Admin: 01/10/25 20:15 Dose: 20 mg Olanzapine (Olanzapine 10 Mg Vial) 10 mg IM BID PRN PRN Reason: if refuses oral per court Olanzapine (Olanzapine Odt 10 Mg Tab.Rapdis) 5 mg TRANSLINGU DAILY [facility] Last Admin: 01/10/25 09:38 Dose: 5 mg Omeprazole (Omeprazole 20 Mg Capsule.Dr) 20 mg PO DAILY@0630 [facility] Last Admin: 01/11/25 05:54 Dose: 20 mg Polyethylene Glycol (Polyethylene Glycol 3350 17 Gm Powd.Pack) 17 gm PO DAILY [facility] Last Admin: 01/10/25 09:39 Dose: 17 gm Trazodone HCl (Trazodone Hcl 50 Mg Tablet) 50 mg PO BEDTIME MRX1 PRN PRN Reason: Insomnia Allergies Allergies Allergy/AdvReac Type Severity Reaction Status Date / Time blueberry [Blueberry] Allergy Severe SWELLING Verified 12/25/24 13:30 lisinopril Allergy Intermediate cough Verified 12/25/24 13:30 mushroom Allergy Intermediate SWELLING Verified 12/25/24 13:30 shellfish derived Allergy Unknown UNKNOWN Verified 12/25/24 13:30 [SHELLFISH DERIVED] thioridazine Allergy Unknown Unknown Verified 12/25/24 13:30 tomato [TOMATO] Allergy Unknown UNKNOWN Verified 12/25/24 13:30 CHOCOLATE Allergy Intermediate ITCHING Uncoded 09/04/24 12:35 From MELLARIL Allergy Intermediate SHORTNESS Uncoded 09/04/24 12:35 OF BREATH From THORAZINE Allergy Intermediate SHORTNESS Uncoded 09/04/24 12:35 OF BREATH Assessment & Plan Assessment & Plan (1) Schizophrenia: Qualifiers: Schizophrenia type: undifferentiated schizophrenia Qualified Code(s): F20.3 - Undifferentiated schizophrenia Status: Acute Code(s): F20.9 - Schizophrenia, unspecified (2) HTN (hypertension): Qualifiers: Hypertension type: essential hypertension Qualified Code(s): I10 - Essential (primary) hypertension Status: Acute Code(s): I10 - Essential (primary) hypertension Plan Ms. Smith is a 74 year-old woman with hx of schizophrenia. She was initially assessed by [facility] in the community due to refusing medications, not accepting support for grocery shopping from ACCS team. In the ED, pt found to be hypertensive SBP 230/110, she was started on nifedipine. She was admitted to [facility] on 12/26 but had episode of syncope with BP of 89/46, admitted medically, off ani-hypertensive medications now. She does have a kev's and a guardian. Will restart olanzapine with back IM per fariha. PLAN 01/01 continue tx. BP elevated this AM, seen by hospitalist. 01/04 continue tx. 01/05 continue tx. 01/06 continues with delusions of being . No aggression. reports some abdominal discomfort, will add KUB to r/o constipation. 01/07: mod/severe stool burden per XRAY. miralax daily PRN, one dose NOW. otherwise continue current mgmt. 01/08: refused VPA. hypersexual. took zyprexa. continue current mgmt. 01/09/2025: No changes to primary team treatment plan 01/10: increase depakote to 500 mg nightly 01/11 continue tx. capsaisin for right index finger pain. Reason for continued inpatient stay Substantial Risk for: inability to function Time Spent With Patient Time: Total time managing care of this patient today ____ minutes.
[2025-01-11] MEDS: OLANZapine ODT 10 MG TAB.RAPDIS 5 MG TRANSLINGU (09:04)
[2025-01-11] MEDS: Atorvastatin Calcium 80 MG TABLET PO (09:04)
[2025-01-11] MEDS: Docusate Sodium 100 MG CAPSULE PO ×2 (09:05→22:01)
[2025-01-11 09:09] VITALS: PULSE 106; RESP 18; TEMP 36.7; O2SAT 96
[2025-01-11] MEDS: OLANZapine ODT 10 MG TAB.RAPDIS 20 MG TRANSLINGU (22:01)
[2025-01-11 22:10] VITALS: BP 193/92
[2025-01-11] MEDS: amLODIPine Besylate 2.5 MG TABLET PO (22:10)
[2025-01-11] MEDS: Divalproex Sodium 500 MG TABLET.DR PO (22:11)
[2025-01-12] MEDS: Omeprazole 20 MG CAPSULE.DR PO (05:49)
[2025-01-12] MEDS: OLANZapine ODT 10 MG TAB.RAPDIS 5 MG TRANSLINGU (09:45)
--- NOTE | 2025-01-12 11:56 | PM.EVENT ---
Event Note Date of Service: 01/12/25 Event Note: Blood pressure continued to be elevated, we will increase Norvasc to 5 mg at HS. Time Spent With Patient Time: Total time managing care of this patient today ____ minutes.
--- NOTE | 2025-01-12 14:21 | P.PNPSI_ITS ---
Subjective Subjective Date of Service: 01/12/25 Reason For Visit: psychosis Subjective Notes: Conditional Voluntary Interim History: Pt sleeping and eating well. She continues to report that she is . She thinks she is having triplets. She denies SI/HI. She does not think she needs to receive psychiatric treatment. No behavioral concerns. Medication Compliance: Yes Side effects from medications: No Mental Status Exam Mental Status Exam Narrative: Appearance: wearing casual clothing, fair hygiene, in NAD Behavior: cooperative Psychomotor: no agitation or retardation noted Speech: mumbles, difficult to understand at times, regular tone, spontaneous TP: disorganized at times TC: wanting to go home Mood: fine Affect: slightly expansive SI: denies HI: denies VH/AH: internally preoccupied Delusions: delusions of being , Insight/judgment: impaired x 2. Memory/cog: alert, oriented to place, month year not situation. Diagnostics Vital Signs (24Hr): Vital Signs - 24 hr 01/11/25 22:10 Blood Pressure 193/92 H BMI result Body Mass Index 33.5 Imaging Radiology Impressions: ITS Impressions KUB X-Ray 01/06/25 16:35 IMPRESSION: Moderate to large amount of stool throughout the colon. Electronically signed by: Kevin Leonard MD 01/07/2025 07:59 AM EDT RP Medications Medications Current Medications Acetaminophen (Acetaminophen 325 Mg Tablet) 650 mg PO Q6H PRN PRN Reason: Headache/Pain, Scale 1-10 Last Admin: 01/01/25 00:25 Dose: 650 mg Al Hydroxide/Mg Hydroxide (Magnesium Hydrox/Alum Hydrox 30 Ml Oral.Susp) 30 ml PO Q6H PRN PRN Reason: Heartburn/Nausea Amlodipine Besylate (Amlodipine Besylate 5 Mg Tablet) 5 mg PO BEDTIME EDIN; Protocol Artificial Tears (Artificial Tears 15 Ml Drops) 2 drop EYE-BOTH Q4H PRN PRN Reason: Dry Eyes Last Admin: 01/11/25 09:04 Dose: 2 drop Atorvastatin Calcium (Atorvastatin Calcium 80 Mg Tablet) 80 mg PO DAILY EDIN Last Admin: 01/12/25 09:50 Dose: Not Given Capsaicin (Capsaicin 0.025% Cream 60 Gm Tube) 1 appl TOPICAL TID PRN; Protocol PRN Reason: right index Divalproex Sodium (Divalproex Sodium 500 Mg Tablet.) 500 mg PO BEDTIME EDIN Last Admin: 01/11/25 22:14 Dose: Not Given Docusate Sodium (Docusate Sodium 100 Mg Capsule) 100 mg PO BID [facility] Last Admin: 01/12/25 09:50 Dose: Not Given Hydroxyzine HCl (Hydroxyzine Hcl 25 Mg Tablet) 25 mg PO Q6H PRN PRN Reason: mild anxiety Magnesium Hydroxide (Milk Of Magnesia 30 Ml Oral.Susp) 30 ml PO DAILY PRN PRN Reason: Constipation Olanzapine (Olanzapine Odt 10 Mg Tab.Rapdis) 20 mg TRANSLINGU BEDTIME [facility] Last Admin: 01/11/25 22:01 Dose: 20 mg Olanzapine (Olanzapine 10 Mg Vial) 10 mg IM BID PRN PRN Reason: if refuses oral per court Olanzapine (Olanzapine Odt 10 Mg Tab.Rapdis) 5 mg TRANSLINGU DAILY [facility] Last Admin: 01/12/25 09:45 Dose: 5 mg Omeprazole (Omeprazole 20 Mg Capsule.) 20 mg PO DAILY@0630 [facility] Last Admin: 01/12/25 05:49 Dose: 20 mg Polyethylene Glycol (Polyethylene Glycol 3350 17 Gm Powd.Pack) 17 gm PO DAILY [facility] Last Admin: 01/12/25 09:48 Dose: Not Given Trazodone HCl (Trazodone Hcl 50 Mg Tablet) 50 mg PO BEDTIME MRX1 PRN PRN Reason: Insomnia Allergies Allergies Allergy/AdvReac Type Severity Reaction Status Date / Time blueberry [Blueberry] Allergy Severe SWELLING Verified 12/25/24 13:30 lisinopril Allergy Intermediate cough Verified 12/25/24 13:30 mushroom Allergy Intermediate SWELLING Verified 12/25/24 13:30 shellfish derived Allergy Unknown UNKNOWN Verified 12/25/24 13:30 [SHELLFISH DERIVED] thioridazine Allergy Unknown Unknown Verified 12/25/24 13:30 tomato [TOMATO] Allergy Unknown UNKNOWN Verified 12/25/24 13:30 CHOCOLATE Allergy Intermediate ITCHING Uncoded 09/04/24 12:35 From MELLARIL Allergy Intermediate SHORTNESS Uncoded 09/04/24 12:35 OF BREATH From THORAZINE Allergy Intermediate SHORTNESS Uncoded 09/04/24 12:35 OF BREATH Assessment & Plan Assessment & Plan (1) Schizophrenia: Qualifiers: Schizophrenia type: undifferentiated schizophrenia Qualified Code(s): F20.3 - Undifferentiated schizophrenia Status: Acute Code(s): F20.9 - Schizophrenia, unspecified (2) HTN (hypertension): Qualifiers: Hypertension type: essential hypertension Qualified Code(s): I10 - Essential (primary) hypertension Status: Acute Code(s): I10 - Essential (primary) hypertension Plan Ms. Smith is a 74 year-old woman with hx of schizophrenia. She was initially assessed by [facility] in the community due to refusing medications, not accepting support for grocery shopping from ACCS team. In the ED, pt found to be hypertensive SBP 230/110, she was started on nifedipine. She was admitted to [facility] on 12/26 but had episode of syncope with BP of 89/46, admitted medically, off ani- hypertensive medications now. She does have a kev's and a guardian. Will restart olanzapine with back IM per fariha. PLAN 01/01 continue tx. BP elevated this AM, seen by hospitalist. 01/04 continue tx. 01/05 continue tx. 01/06 continues with delusions of being . No aggression. reports some abdominal discomfort, will add KUB to r/o constipation. 01/07: mod/severe stool burden per XRAY. miralax daily PRN, one dose NOW. otherwise continue current mgmt. 01/08: refused VPA. hypersexual. took zyprexa. continue current mgmt. 01/09/2025: No changes to primary team treatment plan 01/10: increase depakote to 500 mg nightly 01/11 continue tx. capsaisin for right index finger pain. 01/12 continue tx. Reason for continued inpatient stay Substantial Risk for: inability to function Time Spent With Patient Time: Total time managing care of this patient today ____ minutes.
[2025-01-12 19:55] VITALS: BP 182/101
[2025-01-12] MEDS: amLODIPine Besylate 5 MG TABLET PO (19:55)
[2025-01-12] MEDS: Docusate Sodium 100 MG CAPSULE PO (19:55)
[2025-01-12] MEDS: OLANZapine ODT 10 MG TAB.RAPDIS 20 MG TRANSLINGU (19:55)
[2025-01-12] MEDS: Divalproex Sodium 500 MG TABLET.DR PO (19:56)
[2025-01-12 20:00] VITALS: BP 182/101; PULSE 94; RESP 18; TEMP 37.2; O2SAT 96
[2025-01-13] MEDS: Omeprazole 20 MG CAPSULE.DR PO (05:35)
[2025-01-13] MEDS: OLANZapine ODT 10 MG TAB.RAPDIS 5 MG TRANSLINGU (09:27)
[2025-01-13] MEDS: Docusate Sodium 100 MG CAPSULE PO (09:28)
[2025-01-13] MEDS: Artificial Tears 15 ML DROPS 2 DROP EYE-BOTH (09:33)
--- NOTE | 2025-01-13 11:08 | P.PNPSI_ITS ---
Subjective Subjective Date of Service: 01/13/25 Reason For Visit: psychosis Subjective Notes: Section 7 Interim History: Pt sleeping and eating well. She continues to report that she is . She thinks she is having triplets. She denies SI/HI. She does not think she needs to receive psychiatric treatment. No behavioral concerns. She refuses medications for HTN, thinks this is not the case. Review of Systems Review of Systems Patient appears to be in no apparent distress skin warm and dry Yes all other systems are reviewed and are negative and Unobtainable due to me ntal status Mental Status Exam Mental Status Exam Narrative: Appearance: wearing casual clothing, fair hygiene, in NAD Behavior: cooperative Psychomotor: no agitation or retardation noted Speech: mumbles, difficult to understand at times, regular tone, spontaneous TP: disorganized at times TC: wanting to go home Mood: fine Affect: slightly expansive SI: denies HI: denies VH/AH: internally preoccupied Delusions: delusions of being , Insight/judgment: impaired x 2. Memory/cog: alert, oriented to place, month year not situation. Diagnostics Vital Signs (24Hr): Vital Signs - 24 hr 01/12/25 19:55 01/12/25 20:00 Temperature 98.9 F Pulse Rate 94 Respiratory Rate 18 Blood Pressure 182/101 H 182/101 H Pulse Oximetry 96 Oxygen Delivery Method Room Air BMI result Body Mass Index 33.5 Imaging Radiology Impressions: ITS Impressions KUB X-Ray 01/06/25 16:35 IMPRESSION: Moderate to large amount of stool throughout the colon. Electronically signed by: Kevin Leonard MD 01/07/2025 07:59 AM EDT Medications Medications Current Medications Acetaminophen (Acetaminophen 325 Mg Tablet) 650 mg PO Q6H PRN PRN Reason: Headache/Pain, Scale 1-10 Last Admin: 01/01/25 00:25 Dose: 650 mg Al Hydroxide/Mg Hydroxide (Magnesium Hydrox/Alum Hydrox 30 Ml Oral.Susp) 30 ml PO Q6H PRN PRN Reason: Heartburn/Nausea Amlodipine Besylate (Amlodipine Besylate 5 Mg Tablet) 5 mg PO BEDTIME EDIN; Protocol Last Admin: 01/12/25 19:55 Dose: 5 mg Artificial Tears (Artificial Tears 15 Ml Drops) 2 drop EYE-BOTH Q4H PRN PRN Reason: Dry Eyes Last Admin: 01/13/25 09:33 Dose: 2 drop Atorvastatin Calcium (Atorvastatin Calcium 80 Mg Tablet) 80 mg PO DAILY [facility] Last Admin: 01/13/25 09:54 Dose: Not Given Capsaicin (Capsaicin 0.025% Cream 60 Gm Tube) 1 appl TOPICAL TID PRN; Protocol PRN Reason: right index Divalproex Sodium (Divalproex Sodium 500 Mg Tablet.Dr) 500 mg PO BEDTIME [facility] Last Admin: 01/12/25 19:56 Dose: 500 mg Docusate Sodium (Docusate Sodium 100 Mg Capsule) 100 mg PO BID [facility] Last Admin: 01/13/25 09:28 Dose: 100 mg Hydroxyzine HCl (Hydroxyzine Hcl 25 Mg Tablet) 25 mg PO Q6H PRN PRN Reason: mild anxiety Magnesium Hydroxide (Milk Of Magnesia 30 Ml Oral.Susp) 30 ml PO DAILY PRN PRN Reason: Constipation Olanzapine (Olanzapine Odt 10 Mg Tab.Rapdis) 20 mg TRANSLINGU BEDTIME [facility] Last Admin: 01/12/25 19:55 Dose: 20 mg Olanzapine (Olanzapine 10 Mg Vial) 10 mg IM BID PRN PRN Reason: if refuses oral per court Olanzapine (Olanzapine Odt 10 Mg Tab.Rapdis) 5 mg TRANSLINGU DAILY [facility] Last Admin: 01/13/25 09:27 Dose: 5 mg Omeprazole (Omeprazole 20 Mg Capsule.) 20 mg PO DAILY@0630 [facility] Last Admin: 01/13/25 05:35 Dose: 20 mg Polyethylene Glycol (Polyethylene Glycol 3350 17 Gm Powd.Pack) 17 gm PO DAILY [facility] Last Admin: 01/13/25 09:54 Dose: Not Given Trazodone HCl (Trazodone Hcl 50 Mg Tablet) 50 mg PO BEDTIME MRX1 PRN PRN Reason: Insomnia Allergies Allergies Allergy/AdvReac Type Severity Reaction Status Date / Time blueberry [Blueberry] Allergy Severe SWELLING Verified 12/25/24 13:30 lisinopril Allergy Intermediate cough Verified 12/25/24 13:30 mushroom Allergy Intermediate SWELLING Verified 12/25/24 13:30 shellfish derived Allergy Unknown UNKNOWN Verified 12/25/24 13:30 [SHELLFISH DERIVED] thioridazine Allergy Unknown Unknown Verified 12/25/24 13:30 tomato [TOMATO] Allergy Unknown UNKNOWN Verified 12/25/24 13:30 CHOCOLATE Allergy Intermediate ITCHING Uncoded 09/04/24 12:35 From MELLARIL Allergy Intermediate SHORTNESS Uncoded 09/04/24 12:35 OF BREATH From THORAZINE Allergy Intermediate SHORTNESS Uncoded 09/04/24 12:35 OF BREATH Assessment & Plan Assessment & Plan (1) Schizophrenia: Qualifiers: Schizophrenia type: undifferentiated schizophrenia Qualified Code(s): F20.3 - Undifferentiated schizophrenia Status: Acute Code(s): F20.9 - Schizophrenia, unspecified (2) HTN (hypertension): Qualifiers: Hypertension type: essential hypertension Qualified Code(s): I10 - Essential (primary) hypertension Status: Acute Code(s): I10 - Essential (primary) hypertension Plan Ms. Smith is a 74 year-old woman with hx of schizophrenia. She was initially assessed by [facility] in the community due to refusing medications, not accepting support for grocery shopping from ACCS team. In the ED, pt found to be hypertensive SBP 230/110, she was started on nifedipine. She was admitted to on 12/26 but had episode of syncope with BP of 89/46, admitted medically, off ani- hypertensive medications now. She does have a kev's and a guardian. Will restart olanzapine with back IM per fariha. PLAN 01/01 continue tx. BP elevated this AM, seen by hospitalist. 01/04 continue tx. 01/05 continue tx. 01/06 continues with delusions of being . No aggression. reports some abdominal discomfort, will add KUB to r/o constipation. 01/07: mod/severe stool burden per XRAY. miralax daily PRN, one dose NOW. otherwise continue current mgmt. 01/08: refused VPA. hypersexual. took zyprexa. continue current mgmt. 01/09/2025: No changes to primary team treatment plan 01/10: increase depakote to 500 mg nightly 01/11 continue tx. capsaisin for right index finger pain. 01/12 continue tx. 01/13 sent email to [facility] toggle press folder and feeder to andres fried to include CINTRON. Reason for continued inpatient stay Substantial Risk for: inability to function Time Spent With Patient Time: Total time managing care of this patient today ____ minutes.
--- NOTE | 2025-01-13 11:29 | PM.EVENT ---
Event Note Date of Service: 01/13/25 Event Note: Blood pressures remain elevated. DC Norvasc due to patient not taking consistently. Start Clonidine Patch weekly, Titrate up as necessary based on response. Time Spent With Patient Time: Total time managing care of this patient today ____ minutes.
[2025-01-13 20:00] VITALS: PULSE 100; RESP 16; TEMP 37; O2SAT 97
[2025-01-13] MEDS: OLANZapine ODT 10 MG TAB.RAPDIS 20 MG TRANSLINGU (20:48)
[2025-01-14 08:00] VITALS: BP 184/97; PULSE 89; RESP 16; TEMP 36.3; O2SAT 98
[2025-01-14] MEDS: OLANZapine ODT 10 MG TAB.RAPDIS 5 MG TRANSLINGU (08:31)
[2025-01-14 12:51] VITALS: BMI 34.1
[2025-01-14] MEDS: cloNIDine 0.1 MG PATCH.TDWK TRANSDERMA (12:55)
--- NOTE | 2025-01-14 13:13 | PC.NURSE ---
New order from Swathi Holbrook NP for Clonidine patch for increased BP. Pt accepted med after multiple trials. Pt denies headache, dizziness, SOB or nausea. Will continue to monitor.
[2025-01-14] MEDS: Artificial Tears 15 ML DROPS 2 DROP EYE-BOTH (15:28)
--- NOTE | 2025-01-14 16:47 | P.PNPSI_ITS ---
Subjective Subjective Date of Service: 01/14/25 Reason For Visit: psychosis Subjective Notes: Section 7 Interim History: Pt sleeping and eating well. She continues to report that she is . She thinks she is having triplets. She denies SI/HI. She does not think she needs to receive psychiatric treatment. No behavioral concerns. She refuses medications for HTN, thinks this is not the case. Review of Systems Review of Systems Patient appears to be in no apparent distress skin warm and dry Yes all other systems are reviewed and are negative and Unobtainable due to me ntal status Mental Status Exam Mental Status Exam Narrative: Appearance: wearing casual clothing, fair hygiene, in NAD Behavior: cooperative Psychomotor: no agitation or retardation noted Speech: mumbles, difficult to understand at times, regular tone, spontaneous TP: disorganized at times TC: wanting to go home Mood: fine Affect: slightly expansive SI: denies HI: denies VH/AH: internally preoccupied Delusions: delusions of being , Insight/judgment: impaired x 2. Memory/cog: alert, oriented to place, month year not situation. Diagnostics Vital Signs (24Hr): Vital Signs - 24 hr 01/13/25 20:00 01/14/25 08:00 Temperature 98.6 F 97.3 F Pulse Rate 100 89 Respiratory Rate 16 16 Blood Pressure 184/97 H Pulse Oximetry 97 98 Oxygen Delivery Method Room Air Room Air BMI result Body Mass Index 34.1 Imaging Radiology Impressions: ITS Impressions KUB X-Ray 01/06/25 16:35 IMPRESSION: Moderate to large amount of stool throughout the colon. Electronically signed by: Kevin Leonard MD 01/07/2025 07:59 AM EDT Medications Medications Current Medications Acetaminophen (Acetaminophen 325 Mg Tablet) 650 mg PO Q6H PRN PRN Reason: Headache/Pain, Scale 1-10 Last Admin: 01/01/25 00:25 Dose: 650 mg Al Hydroxide/Mg Hydroxide (Magnesium Hydrox/Alum Hydrox 30 Ml Oral.Susp) 30 ml PO Q6H PRN PRN Reason: Heartburn/Nausea Artificial Tears (Artificial Tears 15 Ml Drops) 2 drop EYE-BOTH Q4H PRN PRN Reason: Dry Eyes Last Admin: 01/14/25 15:28 Dose: 2 drop Atorvastatin Calcium (Atorvastatin Calcium 80 Mg Tablet) 80 mg PO DAILY EDIN Last Admin: 01/14/25 08:33 Dose: Not Given Capsaicin (Capsaicin 0.025% Cream 60 Gm Tube) 1 appl TOPICAL TID PRN; Protocol PRN Reason: right index Clonidine (Clonidine 0.1 Mg Patch.Tdwk) 0.1 mg TRANSDERMA Th@0900 [facility]; Protocol Last Admin: 01/14/25 12:55 Dose: 0.1 mg Divalproex Sodium (Divalproex Sodium 500 Mg Tablet.) 500 mg PO BEDTIME [facility] Last Admin: 01/13/25 20:53 Dose: Not Given Docusate Sodium (Docusate Sodium 100 Mg Capsule) 100 mg PO BID [facility] Last Admin: 01/14/25 08:33 Dose: Not Given Hydroxyzine HCl (Hydroxyzine Hcl 25 Mg Tablet) 25 mg PO Q6H PRN PRN Reason: mild anxiety Magnesium Hydroxide (Milk Of Magnesia 30 Ml Oral.Susp) 30 ml PO DAILY PRN PRN Reason: Constipation Olanzapine (Olanzapine Odt 10 Mg Tab.Rapdis) 20 mg TRANSLINGU BEDTIME [facility] Last Admin: 01/13/25 20:48 Dose: 20 mg Olanzapine (Olanzapine 10 Mg Vial) 10 mg IM BID PRN PRN Reason: if refuses oral per court Olanzapine (Olanzapine Odt 10 Mg Tab.Rapdis) 5 mg TRANSLINGU DAILY [facility] Last Admin: 01/14/25 08:31 Dose: 5 mg Omeprazole (Omeprazole 20 Mg Capsule.) 20 mg PO DAILY@0630 [facility] Last Admin: 01/14/25 06:02 Dose: Not Given Polyethylene Glycol (Polyethylene Glycol 3350 17 Gm Powd.Pack) 17 gm PO DAILY [facility] Last Admin: 01/14/25 08:33 Dose: Not Given Trazodone HCl (Trazodone Hcl 50 Mg Tablet) 50 mg PO BEDTIME MRX1 PRN PRN Reason: Insomnia Allergies Allergies Allergy/AdvReac Type Severity Reaction Status Date / Time blueberry [Blueberry] Allergy Severe SWELLING Verified 12/25/24 13:30 lisinopril Allergy Intermediate cough Verified 12/25/24 13:30 mushroom Allergy Intermediate SWELLING Verified 12/25/24 13:30 shellfish derived Allergy Unknown UNKNOWN Verified 12/25/24 13:30 [SHELLFISH DERIVED] thioridazine Allergy Unknown Unknown Verified 12/25/24 13:30 tomato [TOMATO] Allergy Unknown UNKNOWN Verified 12/25/24 13:30 CHOCOLATE Allergy Intermediate ITCHING Uncoded 09/04/24 12:35 From MELLARIL Allergy Intermediate SHORTNESS Uncoded 09/04/24 12:35 OF BREATH From THORAZINE Allergy Intermediate SHORTNESS Uncoded 09/04/24 12:35 OF BREATH Assessment & Plan Assessment & Plan (1) Schizophrenia: Qualifiers: Schizophrenia type: undifferentiated schizophrenia Qualified Code(s): F20.3 - Undifferentiated schizophrenia Status: Acute Code(s): F20.9 - Schizophrenia, unspecified (2) HTN (hypertension): Qualifiers: Hypertension type: essential hypertension Qualified Code(s): I10 - Essential (primary) hypertension Status: Acute Code(s): I10 - Essential (primary) hypertension Plan Ms. Smith is a 74 year-old woman with hx of schizophrenia. She was initially assessed by [facility] in the community due to refusing medications, not accepting support for grocery shopping from ACCS team. In the ED, pt found to be hypertensive SBP 230/110, she was started on nifedipine. She was admitted to on 12/26 but had episode of syncope with BP of 89/46, admitted medically, off ani- hypertensive medications now. She does have a kev's and a guardian. Will restart olanzapine with back IM per fariha. PLAN 01/01 continue tx. BP elevated this AM, seen by hospitalist. 01/04 continue tx. 01/05 continue tx. 01/06 continues with delusions of being . No aggression. reports some abdominal discomfort, will add KUB to r/o constipation. 01/07: mod/severe stool burden per XRAY. miralax daily PRN, one dose NOW. otherwise continue current mgmt. 01/08: refused VPA. hypersexual. took zyprexa. continue current mgmt. 01/09/2025: No changes to primary team treatment plan 01/10: increase depakote to 500 mg nightly 01/11 continue tx. capsaisin for right index finger pain. 01/12 continue tx. 01/13 sent email to [facility] divorce attorney to amend fariha to include CINTRON. 01/14 continue tx. Reason for continued inpatient stay Substantial Risk for: inability to function Time Spent With Patient Time: Total time managing care of this patient today ____ minutes.
[2025-01-14 20:00] VITALS: PULSE 98; RESP 16; TEMP 36.6; O2SAT 98
[2025-01-14] MEDS: OLANZapine ODT 10 MG TAB.RAPDIS 20 MG TRANSLINGU (20:56)
[2025-01-15 08:00] VITALS: RESP 16
[2025-01-15] MEDS: OLANZapine ODT 10 MG TAB.RAPDIS 5 MG TRANSLINGU (09:21)
[2025-01-15] MEDS: Docusate Sodium 100 MG CAPSULE PO (09:21)
[2025-01-15] MEDS: Artificial Tears 15 ML DROPS 2 DROP EYE-BOTH ×2 (09:22→21:34)
--- NOTE | 2025-01-15 11:08 | HO.PSYCHPN ---
Subjective Subjective Date of Service: 01/15/25 Reason For Visit: psychosis Subjective Notes: Conditional Voluntary Interim History: Pt sleeping and eating well. She continues to report that she is . She asks about discharge, which is planned for Saturday. She thinks she is having triplets. She denies SI/HI. She does not think she needs to receive psychiatric treatment. No behavioral concerns. She refuses medications for HTN, thinks this is not the case. Review of Systems Review of Systems Patient appears to be in no apparent distress skin warm and dry Yes all other systems are reviewed and are negative and Unobtainable due to mental status Mental Status Exam Mental Status Exam Narrative: Appearance: wearing casual clothing, fair hygiene, in NAD Behavior: cooperative Psychomotor: no agitation or retardation noted Speech: mumbles, difficult to understand at times, regular tone, spontaneous TP: disorganized at times TC: wanting to go home Mood: fine Affect: slightly expansive SI: denies HI: denies VH/AH: internally preoccupied Delusions: delusions of being , Insight/judgment: impaired x 2. Memory/cog: alert, oriented to place, month year not situation. Diagnostics Vital Signs (24Hr): Vital Signs - 24 hr 01/14/25 20:00 01/15/25 08:00 Temperature 98 F Pulse Rate 98 Respiratory Rate 16 16 Pulse Oximetry 98 Oxygen Delivery Method Room Air BMI result Body Mass Index 34.1 Imaging Radiology Impressions: ITS Impressions KUB X-Ray 01/06/25 16:35 IMPRESSION: Moderate to large amount of stool throughout the colon. Electronically signed by: Kevin Leonard MD 01/07/2025 07:59 AM EDT Medications Medications Current Medications Acetaminophen (Acetaminophen 325 Mg Tablet) 650 mg PO Q6H PRN PRN Reason: Headache/Pain, Scale 1-10 Last Admin: 01/01/25 00:25 Dose: 650 mg Al Hydroxide/Mg Hydroxide (Magnesium Hydrox/Alum Hydrox 30 Ml Oral.Susp) 30 ml PO Q6H PRN PRN Reason: Heartburn/Nausea Artificial Tears (Artificial Tears 15 Ml Drops) 2 drop EYE-BOTH Q4H PRN PRN Reason: Dry Eyes Last Admin: 01/15/25 09:22 Dose: 2 drop Atorvastatin Calcium (Atorvastatin Calcium 80 Mg Tablet) 80 mg PO DAILY EDIN Last Admin: 01/15/25 09:25 Dose: Not Given Capsaicin (Capsaicin 0.025% Cream 60 Gm Tube) 1 appl TOPICAL TID PRN; Protocol PRN Reason: right index Clonidine (Clonidine 0.1 Mg Patch.Tdwk) 0.1 mg TRANSDERMA Th@0900 [facility]PL[facility]; Protocol Last Admin: 01/14/25 12:55 Dose: 0.1 mg Divalproex Sodium (Divalproex Sodium 500 Mg Tablet.) 500 mg PO BEDTIME REPLACED BY [facility] Last Admin: 01/14/25 20:59 Dose: Not Given Docusate Sodium (Docusate Sodium 100 Mg Capsule) 100 mg PO BID [facility]PL[facility] BY [facility] Last Admin: 01/15/25 09:21 Dose: 100 mg Hydroxyzine HCl (Hydroxyzine Hcl 25 Mg Tablet) 25 mg PO Q6H PRN PRN Reason: mild anxiety Magnesium Hydroxide (Milk Of Magnesia 30 Ml Oral.Susp) 30 ml PO DAILY PRN PRN Reason: Constipation Olanzapine (Olanzapine Odt 10 Mg Tab.Rapdis) 20 mg TRANSLINGU BEDTIME [facility]PL[facility]ED [facility] Last Admin: 01/14/25 20:56 Dose: 20 mg Olanzapine (Olanzapine 10 Mg Vial) 10 mg IM BID PRN PRN Reason: if refuses oral per court Olanzapine (Olanzapine Odt 10 Mg Tab.Rapdis) 5 mg TRANSLINGU DAILY [facility]PL[facility] Last Admin: 01/15/25 09:21 Dose: 5 mg Omeprazole (Omeprazole 20 Mg Capsule.) 20 mg PO DAILY@0630 REPLACED BY [facility] Last Admin: 01/15/25 06:02 Dose: Not Given Polyethylene Glycol (Polyethylene Glycol 3350 17 Gm Powd.Pack) 17 gm PO DAILY REPLACED BY [facility] Last Admin: 01/15/25 09:25 Dose: Not Given Trazodone HCl (Trazodone Hcl 50 Mg Tablet) 50 mg PO BEDTIME MRX1 PRN PRN Reason: Insomnia Allergies Allergies Allergy/AdvReac Type Severity Reaction Status Date / Time blueberry [Blueberry] Allergy Severe SWELLING Verified 12/25/24 13:30 lisinopril Allergy Intermediate cough Verified 12/25/24 13:30 mushroom Allergy Intermediate SWELLING Verified 12/25/24 13:30 shellfish derived Allergy Unknown UNKNOWN Verified 12/25/24 13:30 [SHELLFISH DERIVED] thioridazine Allergy Unknown Unknown Verified 12/25/24 13:30 tomato [TOMATO] Allergy Unknown UNKNOWN Verified 12/25/24 13:30 CHOCOLATE Allergy Intermediate ITCHING Uncoded 09/04/24 12:35 From MELLARIL Allergy Intermediate SHORTNESS Uncoded 09/04/24 12:35 OF BREATH From THORAZINE Allergy Intermediate SHORTNESS Uncoded 09/04/24 12:35 OF BREATH Assessment & Plan Assessment & Plan (1) Schizophrenia: Qualifiers: Schizophrenia type: undifferentiated schizophrenia Qualified Code(s): F20.3 - Undifferentiated schizophrenia Status: Acute Code(s): F20.9 - Schizophrenia, unspecified (2) HTN (hypertension): Qualifiers: Hypertension type: essential hypertension Qualified Code(s): I10 - Essential (primary) hypertension Status: Acute Code(s): I10 - Essential (primary) hypertension Plan Ms. Smith is a 74 year-old woman with hx of schizophrenia. She was initially assessed by [facility] community due to refusing medications, not accepting support for grocery shopping from ACCS team. In the ED, pt found to be hypertensive SBP 230/110, she was started on nifedipine. She was admitted to on 12/26 but had episode of syncope with BP of 89/46, admitted medically, off ani-hypertensive medications now. She does have a kev's and a guardian. Will restart olanzapine with back IM per fariha. PLAN 01/01 continue tx. BP elevated this AM, seen by hospitalist. 01/04 continue tx. 01/05 continue tx. 01/06 continues with delusions of being . No aggression. reports some abdominal discomfort, will add KUB to r/o constipation. 01/07: mod/severe stool burden per XRAY. miralax daily PRN, one dose NOW. otherwise continue current mgmt. 01/08: refused VPA. hypersexual. took zyprexa. continue current mgmt. 01/09/2025: No changes to primary team treatment plan 01/10: increase depakote to 500 mg nightly 01/11 continue tx. capsaisin for right index finger pain. 01/12 continue tx. 01/13 sent email to [facility] ip attorney to amend fried to include CINTRON. 01/14 continue tx. 01/15 continue tx. d/c 01/19/25 Reason for continued inpatient stay Substantial Risk for: inability to function Time Spent With Patient Time: Total time managing care of this patient today ____ minutes.
[2025-01-15] MEDS: Magnesium Hydrox/Alum Hydrox 30 ML ORAL.SUSP PO (17:06)
[2025-01-15 20:00] VITALS: BP 189/98; PULSE 96; TEMP 36.6; O2SAT 98
[2025-01-15] MEDS: OLANZapine ODT 10 MG TAB.RAPDIS 20 MG TRANSLINGU (21:28)
[2025-01-16] MEDS: Omeprazole 20 MG CAPSULE.DR PO (06:45)
[2025-01-16 09:14] VITALS: PULSE 87; RESP 12; TEMP 36.6; O2SAT 97
[2025-01-16] MEDS: polyethylene glycoL 3350 17 GM POWD.PACK PO (09:19)
[2025-01-16] MEDS: OLANZapine ODT 10 MG TAB.RAPDIS 5 MG TRANSLINGU (09:19)
--- NOTE | 2025-01-16 10:01 | P.PNPSI_ITS ---
Subjective Subjective Date of Service: 01/16/25 Reason For Visit: psychosis Interim History: Pt sleeping and eating well. She is taking her Zyprexa but declines other medications. Appears internally preoccupied at times per nursing. Inquiring about discharge. Denies SI/HI. No behavioral concerns. Review of Systems Review of Systems Patient appears to be in no apparent distress skin warm and dry Yes all other systems are reviewed and are negative and Unobtainable due to mental status Mental Status Exam Mental Status Exam Narrative: Appearance: wearing casual clothing, fair hygiene, in NAD Behavior: cooperative Psychomotor: no agitation or retardation noted Speech: mumbles, difficult to understand at times, regular tone, spontaneous TP: disorganized at times TC: wanting to go home Mood: fine Affect: slightly expansive SI: denies HI: denies VH/AH: internally preoccupied Delusions: delusions of being , Insight/judgment: impaired x 2. Memory/cog: alert, oriented to place, month year not situation. Patient Appearance: Well Grooomed Patient Orientation: Person, Place, Time and Situation Level of Consciousness: Alert Patient Behavior: Appropriate and Talkative Affect Description: Cheerful Patient Cognition Impaired: No Ability to Follow Directions: Good Speech Pattern: Poor Articulation Memory Description: Intact Diagnostics Vital Signs (24Hr): Vital Signs - 24 hr 01/15/25 20:00 01/16/25 09:14 Temperature 97.9 F 97.9 F Pulse Rate 96 87 Respiratory Rate 12 Blood Pressure 189/98 H Pulse Oximetry 98 97 Oxygen Delivery Method Room Air BMI result Body Mass Index 34.1 Imaging Radiology Impressions: ITS Impressions KUB X-Ray 01/06/25 16:35 IMPRESSION: Moderate to large amount of stool throughout the colon. Electronically signed by: Kevin Leonard MD 01/07/2025 07:59 AM EDT Medications Medications Current Medications Acetaminophen (Acetaminophen 325 Mg Tablet) 650 mg PO Q6H PRN PRN Reason: Headache/Pain, Scale 1-10 Last Admin: 01/01/25 00:25 Dose: 650 mg Al Hydroxide/Mg Hydroxide (Magnesium Hydrox/Alum Hydrox 30 Ml Oral.Susp) 30 ml PO Q6H PRN PRN Reason: Heartburn/Nausea Last Admin: 01/15/25 17:06 Dose: 30 ml Artificial Tears (Artificial Tears 15 Ml Drops) 2 drop EYE-BOTH Q4H PRN PRN Reason: Dry Eyes Last Admin: 01/15/25 21:34 Dose: 2 drop Atorvastatin Calcium (Atorvastatin Calcium 80 Mg Tablet) 80 mg PO DAILY [facility] Last Admin: 01/16/25 09:29 Dose: Not Given Capsaicin (Capsaicin 0.025% Cream 60 Gm Tube) 1 appl TOPICAL TID PRN; Protocol PRN Reason: right index Clonidine (Clonidine 0.1 Mg Patch.Tdwk) 0.1 mg TRANSDERMA Th@0900 [facility]; Protocol Last Admin: 01/14/25 12:55 Dose: 0.1 mg Divalproex Sodium (Divalproex Sodium 500 Mg Tablet.) 500 mg PO BEDTIME [facility] Last Admin: 01/15/25 21:33 Dose: Not Given Docusate Sodium (Docusate Sodium 100 Mg Capsule) 100 mg PO BID [facility] Last Admin: 01/16/25 09:29 Dose: Not Given Hydroxyzine HCl (Hydroxyzine Hcl 25 Mg Tablet) 25 mg PO Q6H PRN PRN Reason: mild anxiety Magnesium Hydroxide (Milk Of Magnesia 30 Ml Oral.Susp) 30 ml PO DAILY PRN PRN Reason: Constipation Olanzapine (Olanzapine Odt 10 Mg Tab.Rapdis) 20 mg TRANSLINGU BEDTIME [facility] Last Admin: 01/15/25 21:28 Dose: 20 mg Olanzapine (Olanzapine 10 Mg Vial) 10 mg IM BID PRN PRN Reason: if refuses oral per court Olanzapine (Olanzapine Odt 10 Mg Tab.Rapdis) 5 mg TRANSLINGU DAILY [facility] Last Admin: 01/16/25 09:19 Dose: 5 mg Omeprazole (Omeprazole 20 Mg Capsule.) 20 mg PO DAILY@0630 [facility] Last Admin: 01/16/25 06:45 Dose: 20 mg Polyethylene Glycol (Polyethylene Glycol 3350 17 Gm Powd.Pack) 17 gm PO DAILY [facility] Last Admin: 01/16/25 09:19 Dose: 17 gm Trazodone HCl (Trazodone Hcl 50 Mg Tablet) 50 mg PO BEDTIME MRX1 PRN PRN Reason: Insomnia Allergies Allergies Allergy/AdvReac Type Severity Reaction Status Date / Time blueberry [Blueberry] Allergy Severe SWELLING Verified 12/25/24 13:30 lisinopril Allergy Intermediate cough Verified 12/25/24 13:30 mushroom Allergy Intermediate SWELLING Verified 12/25/24 13:30 shellfish derived Allergy Unknown UNKNOWN Verified 12/25/24 13:30 [SHELLFISH DERIVED] thioridazine Allergy Unknown Unknown Verified 12/25/24 13:30 tomato [TOMATO] Allergy Unknown UNKNOWN Verified 12/25/24 13:30 CHOCOLATE Allergy Intermediate ITCHING Uncoded 09/04/24 12:35 From MELLARIL Allergy Intermediate SHORTNESS Uncoded 09/04/24 12:35 OF BREATH From THORAZINE Allergy Intermediate SHORTNESS Uncoded 09/04/24 12:35 OF BREATH Assessment & Plan Assessment & Plan (1) Schizophrenia: Qualifiers: Schizophrenia type: undifferentiated schizophrenia Qualified Code(s): F20.3 - Undifferentiated schizophrenia Status: Acute Code(s): F20.9 - Schizophrenia, unspecified (2) HTN (hypertension): Qualifiers: Hypertension type: essential hypertension Qualified Code(s): I10 - Essential (primary) hypertension Status: Acute Code(s): I10 - Essential (primary) hypertension Plan Ms. Smith is a 74 year-old woman with hx of schizophrenia. She was initially assessed by [facility] community due to refusing medications, not accepting support for grocery shopping from ACCS team. In the ED, pt found to be hypertensive SBP 230/110, she was started on nifedipine. She was admitted to on 12/26 but had episode of syncope with BP of 89/46, admitted medically, off ani- hypertensive medications now. She does have a kev's and a guardian. Will restart olanzapine with back IM per fariha. PLAN 01/01 continue tx. BP elevated this AM, seen by hospitalist. 01/04 continue tx. 01/05 continue tx. 01/06 continues with delusions of being . No aggression. reports some abdominal discomfort, will add KUB to r/o constipation. 01/07: mod/severe stool burden per XRAY. miralax daily PRN, one dose NOW. otherwise continue current mgmt. 01/08: refused VPA. hypersexual. took zyprexa. continue current mgmt. 01/09/2025: No changes to primary team treatment plan 01/10: increase depakote to 500 mg nightly 01/11 continue tx. capsaisin for right index finger pain. 01/12 continue tx. 01/13 sent email to [facility] admitted attorneys to amend fried to include CINTRON. 01/14 continue tx. 01/15 continue tx. d/c 01/19/2501/16: continue current management and treatment plan. Reason for continued inpatient stay Substantial Risk for: inability to function and rapid decompensation Time Spent With Patient Time: Total time managing care of this patient today ____ minutes.
--- NOTE | 2025-01-16 20:07 | PC.NURSE ---
It was reported to this ticket writer that Ms. Mendoza was taking a shower and when staff tried to open the door she hurried to close it accidentally closing the tip of her right 5th finger in the door. Finger tip is bruised and mildly swollen. ice pack provided. Pt denies pain or other issue and states it is fine. scant amt of blood noted in the nail edge but no active bleeding noted. Md Morel aware.
[2025-01-16] MEDS: Docusate Sodium 100 MG CAPSULE PO (21:17)
[2025-01-16] MEDS: OLANZapine ODT 10 MG TAB.RAPDIS 20 MG TRANSLINGU (21:17)
[2025-01-16] MEDS: Artificial Tears 15 ML DROPS 2 DROP EYE-BOTH (21:18)
[2025-01-17 08:00] VITALS: RESP 16
[2025-01-17] MEDS: polyethylene glycoL 3350 17 GM POWD.PACK PO (12:44)
[2025-01-17] MEDS: OLANZapine ODT 10 MG TAB.RAPDIS 5 MG TRANSLINGU (12:45)
--- NOTE | 2025-01-17 14:42 | HO.PSYCHPN ---
Subjective Subjective Date of Service: 01/17/25 Reason For Visit: psychosis Interim History: Pt sleeping and eating well. She was closing a door yesterday and it caught her right 5th finger. Fifth finger is painful and purple. She is taking her Zyprexa but declines other medications. Appears internally preoccupied at times per nursing. Denies SI/HI. No behavioral concerns. Review of Systems Review of Systems Patient appears to be in no apparent distress skin warm and dry Yes all other systems are reviewed and are negative and Unobtainable due to mental status Mental Status Exam Mental Status Exam Narrative: Appearance: wearing casual clothing, fair hygiene, in NAD Behavior: cooperative Psychomotor: no agitation or retardation noted Speech: mumbles, difficult to understand at times, regular tone, spontaneous TP: disorganized at times TC: wanting to go home Mood: fine Affect: slightly expansive SI: denies HI: denies VH/AH: internally preoccupied Delusions: delusions of being , Insight/judgment: impaired x 2. Memory/cog: alert, oriented to place, month year not situation. Patient Appearance: Well Grooomed Patient Orientation: Person, Place, Time and Situation Level of Consciousness: Alert Patient Behavior: Appropriate and Talkative Affect Description: Cheerful Patient Cognition Impaired: No Ability to Follow Directions: Good Speech Pattern: Poor Articulation Memory Description: Intact Diagnostics Vital Signs (24Hr): Vital Signs - 24 hr 01/17/25 08:00 Respiratory Rate 16 BMI result Body Mass Index 34.1 Imaging Radiology Impressions: ITS Impressions KUB X-Ray 01/06/25 16:35 IMPRESSION: Moderate to large amount of stool throughout the colon. Electronically signed by: Kevin Leonard MD 01/07/2025 07:59 AM EDT Medications Medications Current Medications Acetaminophen (Acetaminophen 325 Mg Tablet) 650 mg PO Q6H PRN PRN Reason: Headache/Pain, Scale 1-10 Last Admin: 01/01/25 00:25 Dose: 650 mg Al Hydroxide/Mg Hydroxide (Magnesium Hydrox/Alum Hydrox 30 Ml Oral.Susp) 30 ml PO Q6H PRN PRN Reason: Heartburn/Nausea Last Admin: 01/15/25 17:06 Dose: 30 ml Artificial Tears (Artificial Tears 15 Ml Drops) 2 drop EYE-BOTH Q4H PRN PRN Reason: Dry Eyes Last Admin: 01/16/25 21:18 Dose: 2 drop Atorvastatin Calcium (Atorvastatin Calcium 80 Mg Tablet) 80 mg PO DAILY [facility] Last Admin: 01/17/25 12:49 Dose: Not Given Capsaicin (Capsaicin 0.025% Cream 60 Gm Tube) 1 appl TOPICAL TID PRN; Protocol PRN Reason: right index Clonidine (Clonidine 0.1 Mg Patch.Tdwk) 0.1 mg TRANSDERMA Th@0900 [facility]; Protocol Last Admin: 01/14/25 12:55 Dose: 0.1 mg Divalproex Sodium (Divalproex Sodium 500 Mg Tablet.) 500 mg PO BEDTIME [facility] Last Admin: 01/16/25 21:19 Dose: Not Given Docusate Sodium (Docusate Sodium 100 Mg Capsule) 100 mg PO BID [facility] Last Admin: 01/17/25 12:49 Dose: Not Given Hydroxyzine HCl (Hydroxyzine Hcl 25 Mg Tablet) 25 mg PO Q6H PRN PRN Reason: mild anxiety Magnesium Hydroxide (Milk Of Magnesia 30 Ml Oral.Susp) 30 ml PO DAILY PRN PRN Reason: Constipation Olanzapine (Olanzapine Odt 10 Mg Tab.Rapdis) 20 mg TRANSLINGU BEDTIME [facility] Last Admin: 01/16/25 21:17 Dose: 20 mg Olanzapine (Olanzapine 10 Mg Vial) 10 mg IM BID PRN PRN Reason: if refuses oral per court Olanzapine (Olanzapine Odt 10 Mg Tab.Rapdis) 5 mg TRANSLINGU DAILY [facility] Last Admin: 01/17/25 12:45 Dose: 5 mg Omeprazole (Omeprazole 20 Mg Capsule.) 20 mg PO DAILY@0630 [facility] Last Admin: 01/17/25 06:40 Dose: Not Given Polyethylene Glycol (Polyethylene Glycol 3350 17 Gm Powd.Pack) 17 gm PO DAILY [facility] Last Admin: 01/17/25 12:44 Dose: 17 gm Trazodone HCl (Trazodone Hcl 50 Mg Tablet) 50 mg PO BEDTIME MRX1 PRN PRN Reason: Insomnia Allergies Allergies Allergy/AdvReac Type Severity Reaction Status Date / Time blueberry [Blueberry] Allergy Severe SWELLING Verified 12/25/24 13:30 lisinopril Allergy Intermediate cough Verified 12/25/24 13:30 mushroom Allergy Intermediate SWELLING Verified 12/25/24 13:30 shellfish derived Allergy Unknown UNKNOWN Verified 12/25/24 13:30 [SHELLFISH DERIVED] thioridazine Allergy Unknown Unknown Verified 12/25/24 13:30 tomato [TOMATO] Allergy Unknown UNKNOWN Verified 12/25/24 13:30 CHOCOLATE Allergy Intermediate ITCHING Uncoded 09/04/24 12:35 From MELLARIL Allergy Intermediate SHORTNESS Uncoded 09/04/24 12:35 OF BREATH From THORAZINE Allergy Intermediate SHORTNESS Uncoded 09/04/24 12:35 OF BREATH Assessment & Plan Assessment & Plan (1) Schizophrenia: Qualifiers: Schizophrenia type: undifferentiated schizophrenia Qualified Code(s): F20.3 - Undifferentiated schizophrenia Status: Acute Code(s): F20.9 - Schizophrenia, unspecified (2) HTN (hypertension): Qualifiers: Hypertension type: essential hypertension Qualified Code(s): I10 - Essential (primary) hypertension Status: Acute Code(s): I10 - Essential (primary) hypertension Plan Ms. Smith is a 74 year-old woman with hx of schizophrenia. She was initially assessed by [facility] in the community due to refusing medications, not accepting support for grocery shopping from ACCS team. In the ED, pt found to be hypertensive SBP 230/110, she was started on nifedipine. She was admitted to on 12/26 but had episode of syncope with BP of 89/46, admitted medically, off ani-hypertensive medications now. She does have a kev's and a guardian. Will restart olanzapine with back IM per fariha. PLAN 01/01 continue tx. BP elevated this AM, seen by hospitalist. 01/04 continue tx. 01/05 continue tx. 01/06 continues with delusions of being . No aggression. reports some abdominal discomfort, will add KUB to r/o constipation. 01/07: mod/severe stool burden per XRAY. miralax daily PRN, one dose NOW. otherwise continue current mgmt. 01/08: refused VPA. hypersexual. took zyprexa. continue current mgmt. 01/09/2025: No changes to primary team treatment plan 01/10: increase depakote to 500 mg nightly 01/11 continue tx. capsaisin for right index finger pain. 01/12 continue tx. 01/13 sent email to [facility] disability attorney to amend fariha to include CINTRON. 01/14 continue tx. 01/15 continue tx. d/c 01/19/2501/16: continue current management and treatment plan. 01/17: Checked Xray right hand. Finger splint. continue current management and treatment plan. Reason for continued inpatient stay Substantial Risk for: inability to function and rapid decompensation Time Spent With Patient Time: Total time managing care of this patient today ____ minutes.
[2025-01-17 20:00] VITALS: BP 184/98; PULSE 83; RESP 14; TEMP 36.5; O2SAT 98
[2025-01-17] MEDS: OLANZapine ODT 10 MG TAB.RAPDIS 20 MG TRANSLINGU (20:55)
[2025-01-18 08:00] VITALS: RESP 16; TEMP 36.3
[2025-01-18] MEDS: OLANZapine ODT 10 MG TAB.RAPDIS 5 MG TRANSLINGU (08:33)
--- NOTE | 2025-01-18 09:35 | HO.PSYCHPN ---
Subjective Subjective Date of Service: 01/18/25 Reason For Visit: psychosis Interim History: Pt wants to leave a list with the nursing staff that has her belongings in it. She also has numbers to the disability office written down that she says she has to call. Patient told it is a holiday weekend and the disability office is closed. Has a finger splint on her right fifth finger. SHe is sleeping and eating well. She is taking her Zyprexa but declines other medications. Appears internally preoccupied at times. Denies SI/HI. No behavioral concerns. Review of Systems Review of Systems Patient appears to be in no apparent distress skin warm and dry Yes all other systems are reviewed and are negative and Unobtainable due to mental status Mental Status Exam Mental Status Exam Narrative: Appearance: wearing casual clothing, fair hygiene, in NAD Behavior: cooperative Psychomotor: no agitation or retardation noted Speech: mumbles, difficult to understand at times, regular tone, spontaneous TP: disorganized at times TC: wanting to go home Mood: fine Affect: slightly expansive SI: denies HI: denies VH/AH: internally preoccupied Delusions: delusions of being , Insight/judgment: impaired x 2. Memory/cog: alert, oriented to place, month year not situation. Patient Appearance: Well Grooomed Patient Orientation: Person, Place, Time and Situation Level of Consciousness: Alert Patient Behavior: Appropriate and Talkative Affect Description: Cheerful Patient Cognition Impaired: No Ability to Follow Directions: Good Speech Pattern: Poor Articulation Memory Description: Intact Diagnostics Vital Signs (24Hr): Vital Signs - 24 hr 01/17/25 20:00 01/18/25 08:00 Temperature 97.7 F 97.4 F Pulse Rate 83 Respiratory Rate 14 16 Blood Pressure 184/98 H Pulse Oximetry 98 Oxygen Delivery Method Room Air BMI result Body Mass Index 34.1 Imaging Radiology Impressions: ITS Impressions KUB X-Ray 01/06/25 16:35 IMPRESSION: Moderate to large amount of stool throughout the colon. Electronically signed by: Kevin Leonard MD 01/07/2025 07:59 AM EDT RP Medications Medications Current Medications Acetaminophen (Acetaminophen 325 Mg Tablet) 650 mg PO Q6H PRN PRN Reason: Headache/Pain, Scale 1-10 Last Admin: 01/01/25 00:25 Dose: 650 mg Al Hydroxide/Mg Hydroxide (Magnesium Hydrox/Alum Hydrox 30 Ml Oral.Susp) 30 ml PO Q6H PRN PRN Reason: Heartburn/Nausea Last Admin: 01/15/25 17:06 Dose: 30 ml Artificial Tears (Artificial Tears 15 Ml Drops) 2 drop EYE-BOTH Q4H PRN PRN Reason: Dry Eyes Last Admin: 01/16/25 21:18 Dose: 2 drop Atorvastatin Calcium (Atorvastatin Calcium 80 Mg Tablet) 80 mg PO DAILY [facility] Last Admin: 01/18/25 09:13 Dose: Not Given Capsaicin (Capsaicin 0.025% Cream 60 Gm Tube) 1 appl TOPICAL TID PRN; Protocol PRN Reason: right index Clonidine (Clonidine 0.1 Mg Patch.Tdwk) 0.1 mg TRANSDERMA Th@0900 [facility]; Protocol Last Admin: 01/14/25 12:55 Dose: 0.1 mg Divalproex Sodium (Divalproex Sodium 500 Mg Tablet.) 500 mg PO BEDTIME [facility] Last Admin: 01/17/25 20:57 Dose: Not Given Docusate Sodium (Docusate Sodium 100 Mg Capsule) 100 mg PO BID [facility] Last Admin: 01/18/25 09:13 Dose: Not Given Hydroxyzine HCl (Hydroxyzine Hcl 25 Mg Tablet) 25 mg PO Q6H PRN PRN Reason: mild anxiety Magnesium Hydroxide (Milk Of Magnesia 30 Ml Oral.Susp) 30 ml PO DAILY PRN PRN Reason: Constipation Olanzapine (Olanzapine Odt 10 Mg Tab.Rapdis) 20 mg TRANSLINGU BEDTIME [facility] Last Admin: 01/17/25 20:55 Dose: 20 mg Olanzapine (Olanzapine 10 Mg Vial) 10 mg IM BID PRN PRN Reason: if refuses oral per court Olanzapine (Olanzapine Odt 10 Mg Tab.Rapdis) 5 mg TRANSLINGU DAILY [facility] Last Admin: 01/18/25 08:33 Dose: 5 mg Omeprazole (Omeprazole 20 Mg Capsule.) 20 mg PO DAILY@0630 [facility] Last Admin: 01/18/25 05:59 Dose: Not Given Polyethylene Glycol (Polyethylene Glycol 3350 17 Gm Powd.Pack) 17 gm PO DAILY [facility] Last Admin: 01/18/25 09:13 Dose: Not Given Trazodone HCl (Trazodone Hcl 50 Mg Tablet) 50 mg PO BEDTIME MRX1 PRN PRN Reason: Insomnia Allergies Allergies Allergy/AdvReac Type Severity Reaction Status Date / Time blueberry [Blueberry] Allergy Severe SWELLING Verified 12/25/24 13:30 lisinopril Allergy Intermediate cough Verified 12/25/24 13:30 mushroom Allergy Intermediate SWELLING Verified 12/25/24 13:30 shellfish derived Allergy Unknown UNKNOWN Verified 12/25/24 13:30 [SHELLFISH DERIVED] thioridazine Allergy Unknown Unknown Verified 12/25/24 13:30 tomato [TOMATO] Allergy Unknown UNKNOWN Verified 12/25/24 13:30 CHOCOLATE Allergy Intermediate ITCHING Uncoded 09/04/24 12:35 From MELLARIL Allergy Intermediate SHORTNESS Uncoded 09/04/24 12:35 OF BREATH From THORAZINE Allergy Intermediate SHORTNESS Uncoded 09/04/24 12:35 OF BREATH Assessment & Plan Assessment & Plan (1) Schizophrenia: Qualifiers: Schizophrenia type: undifferentiated schizophrenia Qualified Code(s): F20.3 - Undifferentiated schizophrenia Status: Acute Code(s): F20.9 - Schizophrenia, unspecified (2) HTN (hypertension): Qualifiers: Hypertension type: essential hypertension Qualified Code(s): I10 - Essential (primary) hypertension Status: Acute Code(s): I10 - Essential (primary) hypertension Plan Ms. Smith is a 74 year-old woman with hx of schizophrenia. She was initially assessed by [facility] in the community due to refusing medications, not accepting support for grocery shopping from ACCS team. In the ED, pt found to be hypertensive SBP 230/110, she was started on nifedipine. She was admitted to [facility] on 12/26 but had episode of syncope with BP of 89/46, admitted medically, off ani-hypertensive medications now. She does have a kev's and a guardian. Will restart olanzapine with back IM per fariha. PLAN 01/01 continue tx. BP elevated this AM, seen by hospitalist. 01/04 continue tx. 01/05 continue tx. 01/06 continues with delusions of being . No aggression. reports some abdominal discomfort, will add KUB to r/o constipation. 01/07: mod/severe stool burden per XRAY. miralax daily PRN, one dose NOW. otherwise continue current mgmt. 01/08: refused VPA. hypersexual. took zyprexa. continue current mgmt. 01/09/2025: No changes to primary team treatment plan 01/10: increase depakote to 500 mg nightly 01/11 continue tx. capsaisin for right index finger pain. 01/12 continue tx. 01/13 sent email to [facility] claims attorney to amend fariha to include CINTRON. 01/14 continue tx. 01/15 continue tx. d/c 01/19/2501/16: continue current management and treatment plan. 01/17: Checked Xray right hand. Finger splint to fifth finger due to fracture. continue current management and treatment plan. 01/18: continue current management and treatment plan. ?if she needs to be seen by ortho for the fracture or the splint is enough. Defer to primary team. Reason for continued inpatient stay Substantial Risk for: inability to function and rapid decompensation Time Spent With Patient Time: Total time managing care of this patient today ____ minutes.
[2025-01-18] MEDS: OLANZapine ODT 10 MG TAB.RAPDIS 20 MG TRANSLINGU (21:07)
[2025-01-18] MEDS: Docusate Sodium 100 MG CAPSULE PO (21:07)
[2025-01-19] MEDS: Omeprazole 20 MG CAPSULE.DR PO (05:34)
[2025-01-19 08:00] VITALS: BP 183/87; PULSE 88; RESP 16; TEMP 36.3; O2SAT 98
[2025-01-19] MEDS: Artificial Tears 15 ML DROPS 2 DROP EYE-BOTH (08:36)
[2025-01-19 08:37] VITALS: BP 183/87
[2025-01-19] MEDS: amLODIPine Besylate 5 MG TABLET PO (08:37)
[2025-01-19] MEDS: Docusate Sodium 100 MG CAPSULE PO (08:38)
[2025-01-19] MEDS: OLANZapine ODT 10 MG TAB.RAPDIS 5 MG TRANSLINGU (08:38)
[2025-01-19 09:42] VITALS: BP 183/87
--- NOTE | 2025-01-19 10:22 | P.DS_ITS ---
DS: Providers Provider Date of Service: 01/19/25 Date of admission: 12/29/24 14:24 Date of discharge: 01/19/25 Primary care physician: Bradley Zimmer MD Consults: 01/01/25 08:52 Consult to Hospitalist Routine Comment: Consulting Provider: [facility] Hospitalists Reason For Exam: HTN, recent hotn after bp meds Discharging clinician: Swathi Moe DS: Diagnosis Discharge Diagnosis (1) Schizophrenia: Status: Acute (2) HTN (hypertension): Status: Acute DS: Medications Discharge Medications Home Medications: Home Medications ?Medication ?Instructions ?Recorded ?Confirmed olanzapine 5 mg disintegrating 5 mg PO DAILY 12/27/24 12/29/24 tablet Previous Rx's ?Medication ?Instructions ?Recorded divalproex 250 mg tablet,delayed 250 mg PO BEDTIME 30 days #30 tabs 10/05/24 release docusate sodium 100 mg capsule 100 mg PO DAILY PRN constipation 10/05/24 30 days #30 caps olanzapine 20 mg disintegrating 20 mg PO BEDTIME #30 tabs 10/05/24 tablet omeprazole 20 mg capsule,delayed 20 mg PO DAILY@0630 #90 caps 10/05/24 release peg [id number] 1 2 drp ophthalmic (eye) Q4H PRN Dry 10/05/24 %-0.2 %-0.2 % eye drops Eyes 30 days #15 mL (Artificial Tears ([id number])) atorvastatin 80 mg tablet 80 mg PO DAILY #90 tabs 11/08/24 acetaminophen 325 mg tablet 650 mg (2 x 325 mg) PO Q6H PRN 12/26/24 Headache/Pain, Scale 1-10 #0 tabs trazodone 50 mg tablet 50 mg PO BEDTIME MRX1 PRN Insomnia 12/26/24 #0 tabs Mental Status Exam Mental Status Exam Narrative: Appearance: wearing casual clothing, fair hygiene, in NAD Behavior: cooperative Psychomotor: no agitation or retardation noted Speech: mumbles, difficult to understand at times, regular tone, spontaneous TP: disorganized at times TC: wanting to go home Mood: fine Affect: slightly expansive SI: denies HI: denies VH/AH: internally preoccupied Delusions: delusions of being , Insight/judgment: impaired x 2. Memory/cog: alert, oriented to place, month year not situation. Data Imaging Diagnostic Imaging Impressions KUB X-Ray 01/06/25 16:35 IMPRESSION: Moderate to large amount of stool throughout the colon. Electronically signed by: Kevin Leonard MD 01/07/2025 07:59 AM EDT RP DS: Summary Hospital Course Hospital Course: Ms. Smith is a 74 year-old woman with hx of schizophrenia who was assessed in the community by [facility] due to concerns in terms of increase paranoid, agitation, refusing medications. Pt was brought on a sect 12a. In the ED, pt presented as combative with staff. Her blood pressure was elevated with SBP in the ED of 231/123, refusing medications. She was started on Nifedipine 60mg po daily in the ED. However, when she was transferred to the psychiatric unit on 12/26, she had syncopal episode and BP found to be 89/46, BS 140. She was transferred to medical floor. Nifedipine was stopped. On the unit, pt presents as calmer. She reports she does not know why outpatient team brought her to the hospital. She reports she was doing fine. She reports she may be and she does not know who the father is. She talks about several years ago being in the back of the car with a male. She denies SI/HI. She denies any physical concerns. She reports she is sleeping and eating well. She does not provide explanation as to why she stopped her medications. She asks if she can go home soon as she reports she has medical appointments and boyfriend waiting for her. She does have a dario's which has been extended until 2025 that includes: olanzapine Past Psychiatric History: [facility] client, dario's order and guardian. Schizoaffective D/O Dx per [facility] hosps: [facility] in 1988, [facility] 2013, Wing fall 2015. outpt: [facility] Medical Evaluation Reviewed: Yes HOSPITAL COURSE On the unit, pt was admitted on a sect 12b. Pt presented with delusions of being . She also did not think she had any medical conditions that needed to be treated such as hypertension. She denied SI/HI. She did not show any signs of aggression towards self or others. She appeared internally preoccupied. She was restarted on olanzapine per Dario's order. She declined depakote. She did not take consistently medication for HTN, despite multiple effords to provide education. She was sleeping and eating well. Her SBP was high in the 180's. She was tried on clonidine patch but removed it. She was also started on amlodipine 5mg po daily. She took amlodipine inconsistently. Discussed with ACCS team and [facility] community health nurse staff need to amend Dario's to include CINTRON as pt continues to stop taking antipsychotic once discharged. Will differ to her outpatient provider Jesika Dexter APRN to further admend Dario's. Pt is prone to movement disorder, therefore, I would consider medications like abilify or invega sustenna although efficacy of these medications is unknown for Ms. Smith. Status at Discharge Cognitive/behavioral status at discharge: Pt with bright, non labile affect. Well groomed. No SI/HI. No aggression towards self or others. residual delusions of being and focused on finding romantic partner. She did not show any sexualized nor inappropriate behaviors while on the unit. Sleeping and eating well. Functional status at discharge: independent ambulation Overall status at discharge: patient is progressing back to baseline Time Spent with Patient Time attestation: Total time managing care of this patient today ____ minutes. Discharge Plan Discharge Anticipated Discharge Date/Time: 01/19/25 10:40 Patient Disposition: Home, Self-Care Discharge Diagnosis: Schizoaffective disorder Referrals: Mehnaz Bah (Therapist) [Other] - 01/28/25 11:00 am (You will see Mehnaz on January 28 at 11:00 AM. This will be an in person appoint and if you need to cancel or reschedule please call the number listed.) Terrell Martin [Outside] - 1 Day (Terrell martin will restart after discharge) Bradley Zimmer MD [Primary Care Provider] - 01/29/25 2:00 pm (You will see january 29 at 2:00pm. If you need to reschedule or cancel the appointment please call the number listed.) Sydney Dexter APRN [Advanced Practice Nurse] - 03/01/25 11:00 am (You will see Jesika in person March 01 at 11:00 AM. this will be an in person appointment. If you need to cancel or change the appointment time please call the number listed.) Discharge Medications: New atorvastatin 80 mg Tablet 80 mg PO DAILY Qty: 30 0RF amlodipine 5 mg Tablet 5 mg PO DAILY Qty: 30 0RF Protocol: Hold for SBP< HOLD for SBP < : 90 divalproex 500 mg Tablet,Delayed Release (Dr/Ec) 500 mg PO BEDTIME Qty: 30 0RF olanzapine 20 mg tablet 20 mg PO BEDTIME Qty: 30 0RF polyethylene glycol 3350 17 gram Powder In Packet 17 g PO DAILY Qty: 30 0RF docusate sodium 100 mg Capsule 100 mg PO BID Qty: 60 0RF omeprazole 20 mg Capsule,Delayed Release(Dr/Ec) 20 mg PO DAILY@0630 Qty: 30 0RF Continued olanzapine 5 mg tablet,disintegrating 5 mg PO DAILY Qty: 30 0RF Artificial Tears(vz-[id number]) 1-0.2-0.2 % Drops 2 drp ophthalmic (eye) Q4H PRN (Reason: Dry Eyes) 30 Days Qty: 15 0RF Discontinued atorvastatin 80 mg tablet 80 mg PO DAILY Qty: 90 0RF acetaminophen 325 mg Tablet 650 mg PO Q6H PRN (Reason: Headache/Pain, Scale 1-10) Qty: 0 0RF trazodone 50 mg Tablet 50 mg PO BEDTIME MRX1 PRN (Reason: Insomnia) Qty: 0 0RF olanzapine 20 mg tablet,disintegrating 20 mg PO BEDTIME Qty: 30 1RF divalproex 250 mg Tablet,Delayed Release (Dr/Ec) 250 mg PO BEDTIME 30 Days Qty: 30 0RF docusate sodium 100 mg capsule 100 mg PO DAILY PRN (Reason: constipation) 30 Days Qty: 30 0RF omeprazole 20 mg capsule,delayed release(DR/EC) 20 mg PO DAILY@0630 Qty: 90 3RF Discharge Orders: Discharge Order (Routine); Ordered 01/19/25 Ordered By: Swathi Moe Diet: Low salt diet Activity on Discharge: As tolerated Stand Alone Forms: Patient Portal Discharge page Print Language: Thai Care Plan Goals: 1. maintain mood 2. No SI/HI 3. No aggression towards self or others Health Concerns: Follow up with PCP for routine care. Mainly HTN Plan of Treatment: 1. take medications as prescribed. 2. Go to nearest ED or call 911 in event of emergency Assessment: Pt with bright, non labile affect. No SI/HI. less psychosis, residual delusions of being . No insight into mental illness or medical conditions. Sleeping and eating well.
--- NOTE | 2025-01-19 14:21 | PC.NURSE ---
Pt was aware of discharge, reported readiness for discharge. D/C instructions given to the patient. Reji left the hospital at 14:15, took her belongings with her. Accompanied by her health care worker,
== END 2025-01-19 14:15 | disposition home or self-care (01) | DRG 885 ==
PROVIDERS: Admitting Provider Social Worker; PCP Internal Medicine; Visit Provider Social Worker
DX: F20.3 Undifferentiated schizophrenia (principal); I10 Essential (primary) hypertension; E13.9 Other specified diabetes mellitus without complications; Z87.891 Personal history of nicotine dependence; Z79.899 Other long term (current) drug therapy
CPT/HCPCS: 73120; 74018

== ENCOUNTER → 2024-12-29 14:24 | Outpatient (BNV) | payer OTHER, SELFPAY | PROVIDERS: Admitting Provider Social Worker; PCP Internal Medicine; Visit Provider Nurse Practitioner Family | DX: I10 Essential (primary) hypertension (principal) | CPT/HCPCS: 99222; 99499 ==

== ENCOUNTER → 2024-12-29 14:24 | Outpatient (BNV) | payer OTHER, SELFPAY | PROVIDERS: Admitting Provider Social Worker; PCP Internal Medicine; Visit Provider Social Worker | DX: F20.3 Undifferentiated schizophrenia (principal); I10 Essential (primary) hypertension | CPT/HCPCS: 90792; 99231; 99232 ==

== ENCOUNTER 2025-01-29 11:41 | Outpatient (AMB) | payer OTHER, SELFPAY ==
--- OUTSIDE RECORDS SUMMARY | 2025-01-29 12:22 | XMS_ITS | Encounter Summary ---
Author Organization [email or web address] [facility] Address [address] [place] [address] Care Team Providers Care Staffing Associate Name Role Phone Unavailable Primary Care Provider Unavailabl e Encounter Details Date Type Department Care Team (Latest Contact Info) Description 03/25/2019 Abstract [facility] CONVERSIONS Dental, Provider, DDS Social History [...]
--- NOTE | 2025-01-29 12:32 | MHC.PC.OV ---
Vital Signs 01/29/25 12:33 Height 5 ft 6 in Weight 212 lb 2 oz BMI 34.2 BP 134/82 Blood Pressure Location Lt brachial Position Sitting Pulse 91 Pulse Source Pulse Oximeter Pulse Oximetry (%) 96 Oxygen Delivery Method Room Air Intake Visit Reasons: Psych discharge 01/19 Director Of Content Marketing Required: No Accompanied by: Self / Same As Patient Allergies blueberry [Blueberry] Allergy (Severe, Verified 01/29/25 12:33) SWELLING lisinopril Allergy (Intermediate, Verified 01/29/25 12:33) cough mushroom Allergy (Intermediate, Verified 01/29/25 12:33) SWELLING shellfish derived [SHELLFISH DERIVED] Allergy (Unknown, Verified 01/29/25 12:33) UNKNOWN thioridazine Allergy (Unknown, Verified 01/29/25 12:33) Unknown tomato [TOMATO] Allergy (Unknown, Verified 01/29/25 12:33) UNKNOWN CHOCOLATE Allergy (Intermediate, Uncoded 01/29/25 12:33) ITCHING From MELLARIL Allergy (Intermediate, Uncoded 01/29/25 12:33) SHORTNESS OF BREATH From THORAZINE Allergy (Intermediate, Uncoded 01/29/25 12:33) SHORTNESS OF BREATH Tobacco use date assessed: 01/29/25 Fall risk assessment: 2 + Falls in past year Last assessed Fall Risk: 01/29/25 Dental Screening Dental Screen Date: 01/29/25 Did you have a dental visit in the last 12 months?: Yes Did you have a dental problem in the last 6 months where you did not have access to dental care?: No Was dental information given to patient?: Patient has dentist HPI HPI Comments History of Present Illness Details 74 y/o Female patient with PMHx of schizophrenia, HTN, and HLD presents to the clinic for HDF. Pt was admitted at [facility] on 12/26 for evaluation and treatment of syncope secondary to Hypotension. Pt has h/o Schizophernia and presented to the Emergency room with Altered mental status, elevated BP and poor medication compliancy. Patient was likely not taking her HTN medication - Nifedipine and this was restarted and patient became hypotensive and this is likely the cause of her syncope. She did have an Echo-cardiogram which showed EF of 70% no acute valvular abnormalities. Pt was Norvasc 5 mg post-discharge but it was D/C due to not taking it. She is currently on Clonidine patch weekly. Patient c/o Abdominal cramping associated with Constipation. Appointments: Mehnaz Bah (Therapist) - 01/28/25 11:00 am (Not clear if Patient attended the appointment). Terrell Martin - Pt to call and schedule appointment. Sydney Dexter APRN [Advanced Practice Nurse] - 03/01/25 11:00 am [facility] Medical History (Updated 01/29/25 @ 13:46 by Ladan Varghese NP) Constipation Schizophrenia Diabetes 1.5, managed as type 2 Schatzki's ring Glaucoma GERD (gastroesophageal reflux disease) Hyperlipidemia Bipolar 1 disorder Surgical History History of cataract surgery History of total abdominal hysterectomy History of section Family History Father No problems noted. Mother No problems noted. Social History Household Members: None Household Members Other:: Per ED pt lives with one roommate in [facility] managed apartment. Housing: Apartment Housing Other:: question of an eviction notice Do you presently have visiting nurse or other home services: Yes Unable to assess alcohol history related to: Refusing to respond Alcohol intake: never Comment: 02/2024 Patient Tobacco Use Status: Former Tobacco user Tobacco use type: Cigarette e-Cigarette/Vaping Use: Former Use Second Hand Smoke Exposure: No service: No Current occupational status: disabled Sexual orientation: Straight/Heterosexual Cognitive needs: Yes Hearing needs: Yes Vision needs: Yes Questionnaire PHQ-9 Over the last 2 weeks, how often have you been bothered by any of the following problems? 1. Little interest or pleasure in doing things: not at all 2. Feeling down, depressed, or hopeless: not at all 3. Trouble falling or staying asleep, or sleeping too much: not at all 4. Feeling tired or having little energy: not at all 5. Poor appetite or overeating: not at all 6. Feeling bad about yourself - or that you are a failure or have let yourself or your family down: not at all 7. Trouble concentrating on things, such as reading the newspaper or watching television: not at all 8. Moving or speaking so slowly that other people could have noticed. Or the opposite - being so fidgety or restless that you have been moving around a lot more than usual: not at all 9. Thoughts that you would be better off or of hurting yourself in some way: not at all Total score: 0 Depression Screening Interpretation: Negative Depression Screening Done: Yes Source: Developed by Drs. Kevin Murray, Vivian Mclain, Henrique Elise and colleagues, with an educational ankit from [id number]. Thrive Questionnaire Date Thrive assessed: 01/29/25 I am a: Patient What is your living situation today?: I have a steady place to live Within the past 12 months, did the food you bought not last and you didn't have the money to get more?: Never true Within the past 12 months, did you worry whether your food would run out before you got money to buy more?: Never true Do you have trouble paying for medicines?: No Do you have trouble getting transportation to medical appointments?: No Do you have trouble paying your heating and electricity bill?: No Do you have trouble taking care of your child, family member or friend?: No Do you have trouble with day-to-day activities such as bathing, preparing meals, shopping, managing finances, etc.?: No Are you currently unemployed and looking for a job?: Yes Are you interested in more education?: No Please select the resources that you would like help with: None Currently or been in a relationship where the following occur: No concerns reported THRIVE Score: 0 AUDIT C Alcohol Use Questionnaire (AUDIT-C) 1. How often do you have a drink containing alcohol?: Never 3. How often do you have six or more drinks on one occasion?: Never Total Score: 0 DELFINO-7 AMB Questionnaire DELFINO-7 Date DELFINO - 7 assessed: 01/29/25 Feeling nervous, anxious, or on edge: 0 = Not at all Not being able to stop or control worryin = Not at all Worrying too much about different things: 0 = Not at all Trouble relaxin = Not at all Being so restless that it is hard to sit still: 0 = Not at all Becoming easily annoyed or irritable: 0 = Not at all Feeling afraid as if something awful might happen: 0 = Not at all Total DELFINO-7 score (0-4 normal; 5-9 mild; 10-14 moderate; 15-21 severe): 0 Source: Developed by Drs. Kevin Murray, Vivian Mclain, Henrique Elise and colleagues, with an educational ankit from [id number]. Review of Systems Const All systems reviewed & are unremarkable except as noted in HPI and below Physical exam (Primary Care) Vital Signs: Last Vital Signs Pulse 91 01/29/25 12:33 BP 134/82 01/29/25 12:33 Pulse Ox 96 01/29/25 12:33 Oxygen Delivery Method Room Air 01/29/25 12:33 BMI result Body Mass Index 34.2 Tobacco/Smoking Status: Tobacco use Status Tobacco use date assessed 01/29/25 01/29/25 12:35 Patient Tobacco Use Status Former Tobacco user 01/29/25 12:35 Tobacco use type Cigarette 01/29/25 12:35 e-Cigarette/Vaping Use Former Use 01/29/25 12:35 PHQ-9: PHQ-9 Score PHQ-9: Total score 0 01/29/25 12:40 Depression Screening Interpretation: Negative Thrive Assessment: Date of Thrive Assessment Date Thrive assessed 01/29/25 01/29/25 12:35 Currently or been in a relationship where the following occur: No concerns reported Const General: no acute distress Nutritional Appearance: obese Orientation/consciousness: patient oriented x3 GI Inspection: Yes Abdominal panniculus present and Yes obesity Palpation (GI): Soft to palpation, not firm, nontender, no guarding, not rigid and No hepatosplenomegaly present Auscultation: normal bowel sounds Neuro General: patient oriented x3, gait normal and moves all extremities Coding Level of Care Code Est Pt Level 4 (67905) Diagnoses 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 Essential hypertension I10 Hypertension type: essential hypertension Slow transit constipation K59.01 Constipation type: slow transit constipation Time Spent (min) 20 Assessment & Plan Assessment & Plan (1) Schizophrenia: Code(s): F20.9 - Schizophrenia, unspecified Category: Medical Qualifiers: Schizophrenia type: undifferentiated schizophrenia Qualified Code(s): F20.3 - Undifferentiated schizophrenia Plan: Managed by Psych (2) HTN (hypertension): Code(s): I10 - Essential (primary) hypertension Category: Medical Qualifiers: Hypertension type: essential hypertension Qualified Code(s): I10 - Essential (primary) hypertension Plan: Continue on current regiment. (3) Constipation: Code(s): K59.00 - Constipation, unspecified Category: Medical Qualifiers: Constipation type: slow transit constipation Qualified Code(s): K59.01 - Slow transit constipation Plan: Ordered Stool softeners. Medications: New sennosides (Senokot) 8.6 mg PO BEDTIME 30 tabs 0RF K59.01 - Slow transit constipation Refilled polyethylene glycol 3350 17 grams PO DAILY 30 ea 0RF K59.01 - Slow transit constipation
[2025-01-29 12:33] VITALS: BP 134/82; PULSE 91; O2SAT 96; BMI 34.2
== END 2025-01-29 13:33 | disposition home or self-care (01) ==
LOC: HO.HMCH 11:41
PROVIDERS: PCP Internal Medicine; Visit Provider Nurse Practitioner Family
DX: F20.3 Undifferentiated schizophrenia (principal); I10 Essential (primary) hypertension; K59.01 Slow transit constipation

== ENCOUNTER → 2025-01-29 11:41 | Outpatient (BNVA) | payer OTHER, SELFPAY | PROVIDERS: PCP Internal Medicine; Visit Provider Nurse Practitioner Family | DX: F20.3 Undifferentiated schizophrenia (principal); I10 Essential (primary) hypertension; E78.5 Hyperlipidemia, unspecified; R41.82 Altered mental status, unspecified; K59.01 Slow transit constipation | CPT/HCPCS: 96127; 99212 ==

== ENCOUNTER 2025-04-10 23:06 | Inpatient (IN) | payer OTHER, SELFPAY ==
--- NOTE | 2025-04-10 23:28 | ED.PSYCH ---
HPI - Psych General Chief Complaint: Psychiatric Symptoms Stated Complaint: Sect 12, not acting right per chd/resident Source: EMS Mode of arrival: EMS Limitations: other History of Present Illness ED Provider: Dr. Francheska Tee HPI Narrative: patient comes to the emergency room via ambulance. According to EMS, seems that neighbors called for a wellness check. patient lives in a [facility] community apartment building. Patient locked herself in the bathroom for over half an hour. That is why they called PD to make sure she was okay. PD had to open the door and for the patient now. Patient has not been talking at all. Playing possum. patient refusing to talk. On arrival, patient is awake, alert. When I went to talk to the patient, patient started playing possum again Related Data Home Medications ?Medication ?Instructions ?Recorded ?Confirmed amlodipine 5 mg tablet 5 mg PO DAILY 04/12/25 04/12/25 atorvastatin 80 mg tablet 80 mg PO BEDTIME 04/12/25 04/12/25 calcium carbonate 500 mg PO DAILY 04/12/25 04/12/25 cholecalciferol (vitamin D3) 50 100 mcg PO DAILY 04/12/25 04/12/25 mcg (2,000 unit) tablet (Vitamin D3) divalproex 500 mg tablet,delayed 500 mg PO BEDTIME 04/12/25 04/12/25 release docusate sodium 100 mg capsule 100 mg PO DAILY PRN Constipation 04/12/25 04/12/25 nifedipine 60 mg tablet,extended 60 mg PO DAILY 04/12/25 04/12/25 release 24 hr olanzapine 5 mg tablet 5 mg PO DAILY 04/12/25 04/12/25 omeprazole 20 mg capsule,delayed 20 mg PO DAILY@0630 04/12/25 04/12/25 release peg [id number] 1 2 drp ophthalmic (eye) Q4H PRN Dry 04/12/25 04/12/25 %-0.2 %-0.2 % eye drops Eye(S) (Artificial Tears ([id number])) simethicone 80 mg chewable tablet 80 mg PO DAILY PRN Constipation 04/12/25 04/12/25 valsartan 160 1 tab PO DAILY 04/12/25 04/12/25 mg-hydrochlorothiazide 12.5 mg tablet Previous Rx's ?Medication ?Instructions ?Recorded olanzapine 20 mg tablet 20 mg PO BEDTIME #30 tabs 01/19/25 Allergies Allergy/AdvReac Type Severity Reaction Status Date / Time blueberry (Blueberry) Allergy Severe SWELLING Verified 04/10/25 23:30 lisinopril Allergy Intermediate cough Verified 04/10/25 23:30 mushroom Allergy Intermediate SWELLING Verified 04/10/25 23:30 shellfish derived (SHELLFISH Allergy Unknown UNKNOWN Verified 04/10/25 23:30 DERIVED) thioridazine Allergy Unknown Unknown Verified 04/10/25 23:30 tomato (TOMATO) Allergy Unknown UNKNOWN Verified 04/10/25 23:30 CHOCOLATE Allergy Intermediate ITCHING Uncoded 04/10/25 23:30 From MELLARIL Allergy Intermediate SHORTNESS Uncoded 04/10/25 23:30 OF BREATH From THORAZINE Allergy Intermediate SHORTNESS Uncoded 04/10/25 23:30 OF BREATH Review of Systems Review of Systems: Yes Other PMFSH Past Medical History Medical History Constipation Schizophrenia Diabetes 1.5, managed as type 2 Schatzki's ring Glaucoma GERD (gastroesophageal reflux disease) Hyperlipidemia Bipolar 1 disorder Surgical History History of cataract surgery History of total abdominal hysterectomy History of section Family History Family History Father No problems noted. Mother No problems noted. Social History Social History Household Members: None Household Members Other:: Per ED pt lives with one roommate in [facility] managed apartment. Housing: Apartment Housing Other:: question of an eviction notice Do you presently have visiting nurse or other home services: Yes Unable to assess alcohol history related to: Unknown Alcohol intake: never Comment: 02/2024 Patient Tobacco Use Status: Former Tobacco user Tobacco use type: Cigarette e-Cigarette/Vaping Use: Former Use Second Hand Smoke Exposure: No Advance Directives: No Nutrition Risks: No Nutritional Risk service: No Current occupational status: disabled Sexual orientation: Straight/Heterosexual Cognitive needs: Yes Hearing needs: Yes Vision needs: Yes Physical Exam Exam: Exam: Appearance: Alert. when no one is around the patient, patient is awake and alert. When anyone tox to her, patient plays possum and does not answering any questions. Patient's seems unharmed Eyes: Pupils equal, round and reactive to light. ENT: Pharynx normal. Neck: Normal inspection. Neck supple. No lymph nodes noted. No crepitus CVS: Normal heart rate and rhythm. Pulses normal. Normal S1 and S2 Respiratory: No respiratory distress. Breath sounds normal. No Wheezing. No rales Abdomen: Soft and nontender. No rigidity. No distention. Skin: Skin warm and dry. Normal skin color. Normal skin turgor. Extremities: No lower extremity edema. No Lacerations. No Rash Neuro: patient's seems to be moving all extremities Psych: patient playing possum, not answering any questions. However, when patient is alone, she is awake and alert Vital Signs: Vital Signs: Last Vital Signs Pulse 106 H 04/10/25 23:29 Resp 16 04/13/25 07:20 Pulse Ox 94 04/10/25 23:29 O2 Del Method Room Air 04/10/25 23:29 BMI result Body Mass Index 40.3 Course Course Course Narrative: I reviewed patient's medical records, patient was in the psychiatric floor for almost 1 month in December. Patient has history of schizophrenia, bipolar disorder. Patient was brought in on a Section 12 all of patient's labs spent care team consult pending physician observation started at 23:30 Reevaluation(s) Reevaluation #1: DR. Valente's progress note 04/11/2025 9:00. VSS, calm, continue with section 12, bed search is underway, will continue with physician observation. Time: 09:00 Reevaluation #2: Time: 08:52 Date: 04/12/25 Provider: Cara Archibald, DO Patient in physician observation for psychiatric evaluation.? No acute events reported overnight. No current complaints. VS stable.? Patient is in bed search status. Will continue to monitor. Reevaluation #3: DR. Valente's progress note; 04/13/2025. 10;00. VSS, no events overnight reported by the nurse, under section 12, continue physician observation. bed search is underway. Time: 10:00 Consultations Consultation #1: Discontinue physician observation, patient has been admitted to S1. Time: 11:30 Medications Administered Discontinued Medications Generic Name Dose Route Start Last Admin Trade Name Divya PRN Reason Stop Dose Admin Melatonin 6 mg 04/12/25 00:27 04/12/25 00:37 Melatonin 3 Mg Tablet PO 04/12/25 00:28 6 mg ONCE ONE Administration Olanzapine 10 mg 04/11/25 01:05 04/11/25 06:36 Olanzapine 10 Mg Tablet PO 04/11/25 01:06 Not Given ONCE ONE Medical Decision Making Differential Diagnosis Differential Diagnoses: The differential diagnosis associated with the presentation includes ( depression, anxiety, bipolar disorder, schizophrenia, medication noncompliance) Admission/Observation Consideration of admission/observation: Escalation of care including admission/observation considered ( patient will likely need inpatient level of care) Lab Data Labs: Lab Results 04/11/25 04/11/25 Range/Units 01:01 01:02 Urine Color Yellow Urine Appearance Clear Urine pH 6.5 (5.0-9.0) Ur Specific [place] 1.010 (1.005-1.025) Urine Protein Negative (Neg-Trace) mg/dL Urine Glucose (UA) Negative (Negative) mg/dL Urine Ketones Negative (Negative) mg/dL Urine Blood Negative (Negative) Urine Nitrite Negative (Negative) Ur Leukocyte Esterase Negative (Negative) Urine Opiates Screen Not Detected (Not Detect) Ur Buprenorphine Scrn Not Detected (Not Detect) ng/mL Ur Oxycodone Screen Not Detected (Not Detect) ng/mL Urine Methadone Screen Not Detected (Not Detect) ng/mL Urine Fentanyl Screen Not Detected (Not Detect) Ur Barbiturates Screen Not Detected (Not Detect) Ur Phencyclidine Scrn Not Detected (Not Detect) Ur Amphetamines Screen Not Detected (Not Detect) U Benzodiazepines Scrn Not Detected (Not Detect) Urine Cocaine Screen Not Detected (Not Detect) U Marijuana (THC) Screen Not Detected (Not Detect) Critical Care Time Critical Care Time Critical Care Time: Yes Total Critical Care Time: 35 Attestation: I have personally provided critical care time. Time includes review of lab data, radiology results, discussion with consultants, and monitoring for potential decompensation. Intervention performed as documented. Discharge Plan Discharge Clinical Impression: Schizophrenia Qualifiers: Schizophrenia type: undifferentiated schizophrenia Qualified Code(s): F20.3 - Undifferentiated schizophrenia Patient Disposition: Admitted As Inpatient Interventions: [place]-Suicide Risk Severity Scale Last Done: 04/13/25 02:00 Admission Worksheet (ED) Last Done: 04/13/25 12:29
[2025-04-10 23:29] VITALS: PULSE 106; RESP 18; O2SAT 94; BMI 40.3
--- OUTSIDE RECORDS SUMMARY | 2025-04-10 23:57 | XMS_ITS | Clinical Summary ---
Author Organization [facility] Address [address] [place] [address] Phone Care Team Providers Care Dulite Machine Bluer Name Role Phone Bradley Zimmer MD Primary Care Provider [phone] Allergies Active Allergy Reactions Criticality Noted Date [...] of 1 - PCV) 02/09/1998 Influenza Vaccine (#1) 2025 Hepatitis B Vaccine Aged Out No longe r eligible based on patient's age to complete this topic Insurance [facility] ([id number]) [facility] ([id number]) Care Teams Dulite Machine Bluer Relationship Specialty Start Date End Date Bradley Zimmer MD [facility] [id number] [place], [place] PCP - General Internal Medicine 12/23/20
[2025-04-11 01:11] LABS: Appearance Urine Clear; Glucose Urine UA Negative (Negative); PH 6.5 (5.0-9.0); Specific Gravity - Urine 1.010 (1.005-1.025)
[2025-04-11 01:27] LABS: Cannabinoid Screen Urine Not Detected (Not Detect)
--- NOTE | 2025-04-11 02:47 | PC.NURSE ---
RN to bedside in an attempt to medicate the pt per MAR. The pt was found seated in the room on chair, when head handing down, hands folded in her lap and respirations even and unlabored. The pt did not respond to this RN's verbal and/or light stimuli. Upon EDT arrival to bedside to inform her of plan and need for blood work to be obtained the pt woke up at which point she was alert, verbal, skin warm and dry, calm and cooperative without distress noted. The pt is difficult to understand however this is noted to be her baseline per staff who are familiar with her. This RN attempted to complete the necessary safety questions without much success at this time, worklist differed
--- NOTE | 2025-04-11 05:01 | PC.NURSE ---
remains awake, sitting in chair in room. ambulating independently throughout room.
--- NOTE | 2025-04-11 07:51 | MHC.EDTECH ---
pt refused vitals and lab work @ [id number]
--- NOTE | 2025-04-11 08:04 | PC.NURSE ---
Addendum entered by Jolene Sage RN 04/11/25 08:06: Patient is a 74 year-old woman with hx of schizophrenia who was assessed in the community by [facility] due to concerns in terms of increase paranoid, agitation, refusing medications, apparently had locked herself in the bathroom and refused to open the door requiring police intervention. Pt was brought on a sect 12a. Upon arrival, patient refused to engage with staff or provider. Resting quietly at this time. Respirations even and non-labored. No distress noted. CARE team eval pending. Original Note: Medical History Constipation Schizophrenia Diabetes 1.5, managed as type 2 Schatzki's ring Glaucoma GERD (gastroesophageal reflux disease) Hyperlipidemia Bipolar 1 disorder
--- NOTE | 2025-04-11 08:28 | PC.NURSE ---
CARE team at the bedside to provide an eval.
[2025-04-11 08:34] VITALS: RESP 20
--- NOTE | 2025-04-11 15:34 | MHC.EDTECH ---
patient refused having her blood drawn
[2025-04-12 06:09] VITALS: RESP 16
--- NOTE | 2025-04-12 06:16 | PC.NURSE ---
Pt calm and cooperative with several voice increases to herself at times. Did not sleep throughout the night. Melatonin administered with no effect. Pt refused to lay down on the bed as pt states the bed is too hard and walked around the milieu for most of the night and sat on the chairs in a calm manner. Did not offer any complaints. Made needs known and needs were met. Monitoring is ongoing.
--- NOTE | 2025-04-12 07:53 | PC.NURSE ---
Assumed care of patient at 0645, patient appears to be in no apparent distress this am, ambulating with steady gait around BH pod, calm and cooperative. Continue plan of care for magali IPLOC
[2025-04-12 08:31] VITALS: RESP 16
--- NOTE | 2025-04-12 11:13 | PC.NURSE ---
pt refusing EKG and blood work at this time
--- NOTE | 2025-04-12 15:04 | PHA.MEDREC ---
Addendum entered by Lisset Cuellar RPh 04/12/25 15:57: REVIEWED BY PHARMACIST Original Note: Pharmacy Consult ? Medication Reconciliation Pharmacy has completed the medication reconciliation. Utilized list from [facility].
--- NOTE | 2025-04-12 19:41 | PC.NURSE ---
assumed care for pt at 1900. pt calm and cooperative resting in chair quietly. Introduced my self to pt and updated pt on plan of care. Pt refusing VS and lab work at this time. pt given toothbrush, toothpaste and mouth wash per request. plan of care on going
[2025-04-12 19:43] VITALS: RESP 17
--- NOTE | 2025-04-13 02:55 | MHC.EDTECH ---
PT CONTINUES TO REFUSE LAB WORK AND EKG. RN AND PROVIDER AWARE.
[2025-04-13 07:20] VITALS: RESP 16
--- NOTE | 2025-04-13 07:21 | PC.NURSE ---
Assumed care of patient at 0645, patient appears to be in no apparent distress this am, ambulating with steady gait around BH pod, calm and cooperative. Continue plan of care for IPLOC magali
--- NOTE | 2025-04-13 12:46 | HO.PSYADMNOT ---
HPI Date of Service: 04/13/25 Chief Complaint: Psychosis HPI Narrative: per CARE team medardo, pt was seen by community crisis and referred for admission. pt's neighbors reportedly contacted crisis requesting an evaluation as pt had begun to behave strangely, had locked herself in her bathroom for more than 30 minutes and was not responding to attempts to communicate with her. pt has outpt freid and guardian. in ED pt was not cooperative with evaluation, refusing lab tests, VS, and studies. some intrusive and agitated behaviors in the ED, sleeping only upright in chair. referred for magali admission and accepted. on interview with MD on the unit pt loud, argumentative, oppositional. stated she wants to discharge now and that she will not take medications. MD explained legal basis for forced medication. pt demanding to see her room and take a shower, ultimately unable to engage patient in traditional psychiatric interview. pt was informed that per court order if she refused her olanzapine PO, it would be given IM. Past Psychiatric History: [facility] client, kev's order and guardian. Schizoaffective D/O Dx per [facility] hosps: numerous prior, recent series at [facility] [place] [facility] [place] [facility] [place], Wing fall 2015. outpt: [facility] for meds [facility] Medical Evaluation Reviewed: Yes [facility] Medical History Constipation Schizophrenia Diabetes 1.5, managed as type 2 Schatzki's ring Glaucoma GERD (gastroesophageal reflux disease) Hyperlipidemia Bipolar 1 disorder Surgical History History of cataract surgery History of total abdominal hysterectomy History of section Family History: unknown Social History: lives in her own apartment. 2 adult children. born in [place]. moved to [place] in 1997. Substance History: utox NEG. no known drug Hx. Trauma History: none reported. Diagnostics Vital Signs (24Hr): Vital Signs - 24 hr 04/12/25 19:43 04/13/25 07:20 Respiratory Rate 17 16 BMI result Body Mass Index 40.3 Labs Labs: refusing EKG EKG Comment: refusing Meds/Allergies Meds Home Medications ?Medication ?Instructions ?Recorded ?Confirmed ?Type amlodipine 5 mg tablet 5 mg PO DAILY 04/12/25 04/12/25 History atorvastatin 80 mg tablet 80 mg PO BEDTIME 04/12/25 04/12/25 History calcium carbonate 500 mg PO DAILY 04/12/25 04/12/25 History cholecalciferol (vitamin D3) 50 100 mcg PO DAILY 04/12/25 04/12/25 History mcg (2,000 unit) tablet (Vitamin D3) divalproex 500 mg tablet,delayed 500 mg PO BEDTIME 04/12/25 04/12/25 History release docusate sodium 100 mg capsule 100 mg PO DAILY PRN Constipation 04/12/25 04/12/25 History nifedipine 60 mg tablet,extended 60 mg PO DAILY 04/12/25 04/12/25 History release 24 hr olanzapine 5 mg tablet 5 mg PO DAILY 04/12/25 04/12/25 History omeprazole 20 mg capsule,delayed 20 mg PO DAILY@0630 04/12/25 04/12/25 History release peg [id number] 1 2 drp ophthalmic (eye) Q4H PRN Dry 04/12/25 04/12/25 History %-0.2 %-0.2 % eye drops Eye(S) (Artificial Tears ([id number])) simethicone 80 mg chewable tablet 80 mg PO DAILY PRN Constipation 04/12/25 04/12/25 History valsartan 160 1 tab PO DAILY 04/12/25 04/12/25 History mg-hydrochlorothiazide 12.5 mg tablet Allergies Allergies Allergy/AdvReac Type Severity Reaction Status Date / Time blueberry (Blueberry) Allergy Severe SWELLING Verified 04/10/25 23:30 lisinopril Allergy Intermediate cough Verified 04/10/25 23:30 mushroom Allergy Intermediate SWELLING Verified 04/10/25 23:30 shellfish derived (SHELLFISH Allergy Unknown UNKNOWN Verified 04/10/25 23:30 DERIVED) thioridazine Allergy Unknown Unknown Verified 04/10/25 23:30 tomato (TOMATO) Allergy Unknown UNKNOWN Verified 04/10/25 23:30 CHOCOLATE Allergy Intermediate ITCHING Uncoded 04/10/25 23:30 From MELLARIL Allergy Intermediate SHORTNESS Uncoded 04/10/25 23:30 OF BREATH From THORAZINE Allergy Intermediate SHORTNESS Uncoded 04/10/25 23:30 OF BREATH Mental Status Exam Mental Status Exam Narrative: hospital attire, adequately groomed. not cooperative with staff. PMA of shifting weight between legs, agitated loud voice directed at MD. hyperverbal. thoughts disorganized. affect constricted, hyper-intense, labile. mood not assessed. SI/HI/AVH not assessed. Assessment & Plan Assessment & Plan (1) Schizophrenia: Status: Acute Qualifiers: Schizophrenia type: undifferentiated schizophrenia Qualified Code(s): F20.3 - Undifferentiated schizophrenia Code(s): F20.9 - Schizophrenia, unspecified (2) HTN (hypertension): Status: Acute Qualifiers: Hypertension type: essential hypertension Qualified Code(s): I10 - Essential (primary) hypertension Code(s): I10 - Essential (primary) hypertension Plan enforce kev's medications with IMs. zyprexa 10/20 with 10 mg IM back-up. otherwise continue outpt regimen. Patient educated on: other (legal) Reason for continued inpatient stay Substantial Risk for: harm to self, harm to others and inability to function Statement Statement: I have reviewed the history and physical and performed a pertinent examination on my patient. No changes have occurred unless specified. If the History and Physical was not performed prior to admission, the Hospitalist's service will be consulted for completing the admission physical. Time Spent With Patient Time: Total time managing care of this patient today __55__ minutes.
[2025-04-13 14:03] VITALS: BMI 33.0
--- NOTE | 2025-04-13 17:09 | PC.ADMIT ---
Reji is a 75 yr old with a dx of psychosis and differential dx of depression, anxiety, bipolar, schizophrenia and medication noncompliance. She has a guardian and Jack order, she lives in [facility] housing and at least 2x/wk will refuse to answer the door for the [facility]. The neighbors called 911 due to her acting strange. She had locked herself in the bathroom for a period of time and wasn't willing to talk. She has refused to have her EKG as well as her blood work. She has isolated herself in her room refusing to eat. She is presently on a section 12b. All she will say is she want to go home.
[2025-04-13 20:00] VITALS: RESP 16
[2025-04-13] MEDS: OLANZapine ODT 10 MG TAB.RAPDIS TRANSLINGU (21:04)
[2025-04-13] MEDS: OLANZapine ODT 10 MG TAB.RAPDIS 20 MG TRANSLINGU (21:05)
--- NOTE | 2025-04-14 01:26 | PC.NURSE ---
Pt declined HS medication except for Zypreza despite being educated by TW.
[2025-04-14 08:00] VITALS: BP 169/98; PULSE 99; RESP 18; O2SAT 98
[2025-04-14] MEDS: NIFEdipine ER 60 MG TAB.ER.24 PO (09:05)
--- NOTE | 2025-04-14 14:35 | HO.PSYCHPN ---
Subjective Subjective Date of Service: 04/14/25 Reason For Visit: Psychosis Subjective Notes: Jack Caitlyn Medical Problems Affecting Mental Status: No Interim History: Medical record and nursing notes reviewed; case discussed during rounds with team/nursing staff, and met with patient for supportive therapy/psychoeducation, as well as medication management. Patient only slept for 4 hours, difficulty falling asleep, refused medication except for Zyprexa at bedtime last night. When this provider asked if she has slept well she say very clearly yes, and also reports eating well. Patient is mumbling, not understandable what she was saying majority of the time during assessment. When asked her to take medication as prescribed, she say what medications. And then when I mentioned the Depakote, he she asked what is that for . Educate patient on Depakote's indications. Patient is receptive and not her head will taking medication. She wedding the hat, visible on the unit, no angry outbursts. Per nursing, she tried to refused medication in the morning, but took them with encouragement except vitamins. She reports back pain, and pain all over the body as I walk a lot Medication Compliance: Intermittent Side effects from medications: No Attending Groups: No Review of Systems Acute medical concerns: No Medical Review of Systems: unchanged Review of Systems Review of Systems No shortness of breath. No cough or breathing issue. Reports pain over her body /10. Yes all other systems are reviewed and are negative Mental Status Exam Mental Status Exam Narrative: Wearing casual attire, adequately groomed, aler and awake, visible. She is mostly quiet, engaged and cooperative. Appear to be disorganized. affect constricted, hyper-intense, she is calm, and pleasant. No SI/HI/AVH expressed. Speech is hard to understand but somewhat understandable. Appeared to be mumbling to herself. Diagnostics Vital Signs (24Hr): Vital Signs - 24 hr 04/13/25 20:00 04/14/25 08:00 Pulse Rate 99 Respiratory Rate 16 18 Blood Pressure 169/98 H Pulse Oximetry 98 Oxygen Delivery Method Room Air BMI result Body Mass Index 33.0 Medications Medications Current Medications Acetaminophen (Acetaminophen 325 Mg Tablet) 650 mg PO Q6H PRN PRN Reason: Headache/Pain, Scale 1-10 Al Hydroxide/Mg Hydroxide (Magnesium Hydrox/Alum Hydrox 30 Ml Oral.Susp) 30 ml PO Q6H PRN PRN Reason: Heartburn/Nausea Amlodipine Besylate (Amlodipine Besylate 5 Mg Tablet) 5 mg PO DAILY [facility]; Protocol Last Admin: 04/14/25 09:02 Dose: 5 mg Artificial Tears (Artificial Tears 15 Ml Drops) 2 drop EYE-BOTH Q4H PRN PRN Reason: Dry Eye(S) Atorvastatin Calcium (Atorvastatin Calcium 80 Mg Tablet) 80 mg PO BEDTIME [facility] Last Admin: 04/13/25 22:28 Dose: Not Given Calcium Carbonate (Calcium Oyster Shell Elemental 500 Mg Tablet) 500 mg PO DAILY [facility] Last Admin: 04/14/25 09:06 Dose: Not Given Valsartan 160 mg/ (Hydrochlorothiazide 12.5 mg) 0 mg PO DAILY [facility] Last Admin: 04/14/25 09:07 Dose: Not Given Divalproex Sodium (Divalproex Sodium 500 Mg Tablet.) 500 mg PO BEDTIME [facility] Last Admin: 04/13/25 22:28 Dose: Not Given Docusate Sodium (Docusate Sodium 100 Mg Capsule) 100 mg PO DAILY PRN PRN Reason: Constipation Magnesium Hydroxide (Milk Of Magnesia 30 Ml Oral.Susp) 30 ml PO DAILY PRN PRN Reason: Constipation Nifedipine (Nifedipine Er 60 Mg Tab.Er.24) 60 mg PO DAILY [facility]; Protocol Last Admin: 04/14/25 09:05 Dose: 60 mg Olanzapine (Olanzapine Odt 10 Mg Tab.Rapdis) 10 mg TRANSLINGU DAILY [facility] Last Admin: 04/13/25 21:04 Dose: 10 mg Olanzapine (Olanzapine Odt 10 Mg Tab.Rapdis) 20 mg TRANSLINGU BEDTIME [facility] Last Admin: 04/13/25 21:05 Dose: 20 mg Olanzapine (Olanzapine 10 Mg Vial) 10 mg IM BID PRN PRN Reason: refusal of PO. per fariha. Omeprazole (Omeprazole 20 Mg Capsule.) 20 mg PO DAILY@0630 [facility] Last Admin: 04/14/25 06:13 Dose: Not Given Simethicone (Simethicone 80 Mg Tab.Chew) 80 mg PO DAILY PRN PRN Reason: Constipation Trazodone HCl (Trazodone Hcl 50 Mg Tablet) 50 mg PO BEDTIME MRX1 PRN PRN Reason: Insomnia Vitamin D (Cholecalciferol (Vitamin D3) 25 Mcg Tablet) 100 mcg PO DAILY [facility] Last Admin: 04/14/25 09:07 Dose: Not Given Allergies Allergies Allergy/AdvReac Type Severity Reaction Status Date / Time blueberry (Blueberry) Allergy Severe SWELLING Verified 04/10/25 23:30 lisinopril Allergy Intermediate cough Verified 04/10/25 23:30 mushroom Allergy Intermediate SWELLING Verified 04/10/25 23:30 shellfish derived (SHELLFISH Allergy Unknown UNKNOWN Verified 04/10/25 23:30 DERIVED) thioridazine Allergy Unknown Unknown Verified 04/10/25 23:30 tomato (TOMATO) Allergy Unknown UNKNOWN Verified 04/10/25 23:30 CHOCOLATE Allergy Intermediate ITCHING Uncoded 04/10/25 23:30 From MELLARIL Allergy Intermediate SHORTNESS Uncoded 04/10/25 23:30 OF BREATH From THORAZINE Allergy Intermediate SHORTNESS Uncoded 04/10/25 23:30 OF BREATH Assessment & Plan Assessment & Plan (1) Schizophrenia: Qualifiers: Schizophrenia type: undifferentiated schizophrenia Qualified Code(s): F20.3 - Undifferentiated schizophrenia Status: Acute Code(s): F20.9 - Schizophrenia, unspecified (2) HTN (hypertension): Qualifiers: Hypertension type: essential hypertension Qualified Code(s): I10 - Essential (primary) hypertension Status: Acute Code(s): I10 - Essential (primary) hypertension Plan enforce kev's medications with IMs. zyprexa 10/20 with 10 mg IM back-up. otherwise continue outpt regimen. 04/14/25: Patient only slept for 4 hours, difficulty falling asleep, refused medication except for Zyprexa at bedtime last night. When this provider asked if she has slept well she say very clearly yes, and also reports eating well. Patient is mumbling, not understandable what she was saying majority of the time during assessment. When asked her to take medication as prescribed, she says what medications?. And then when I mentioned the Depakote, he she asked what is that for . Educate patient on Depakote's indications. Patient is receptive and nod her head that she will take medication. She is wearing the hat, visible on the unit, no angry outbursts. Per nursing, she tried to refused medication in the morning, but took them with encouragement except vitamins. She reports back pain, and pain all over the body as I walk a lot . No other safety concerns. Patient educated on: medication risk/benefits and therapeutic strategies Informed Consent: further education needed Reason for continued inpatient stay Substantial Risk for: med/psych decompensation Time Spent With Patient Time: Total time managing care of this patient today ____ minutes.
[2025-04-14 20:00] VITALS: BP 161/78; PULSE 96; RESP 18; TEMP 36.6; O2SAT 99
[2025-04-14] MEDS: OLANZapine ODT 10 MG TAB.RAPDIS 20 MG TRANSLINGU (20:14)
[2025-04-15 08:00] VITALS: BP 183/74; PULSE 100; RESP 18; TEMP 36.6; O2SAT 96
[2025-04-15] MEDS: Calcium Oyster Shell Elemental 500 MG TABLET PO (08:44)
[2025-04-15] MEDS: OLANZapine ODT 10 MG TAB.RAPDIS TRANSLINGU (08:44)
[2025-04-15 08:46] VITALS: BP 183/74
[2025-04-15] MEDS: NIFEdipine ER 60 MG TAB.ER.24 PO (08:46)
[2025-04-15] MEDS: Valsartan 160 MG, hydroCHLOROthiazide 12.5 MG PO (08:59)
--- NOTE | 2025-04-15 10:24 | HO.PSYCHPN ---
Subjective Subjective Date of Service: 04/15/25 Reason For Visit: Psychosis Interim History: lying in bed awake, at first no response. eventually begins speaking and offers a non-stop disorganized monologue. talking about calcification of bones, needing someone to find her certificate, saying someone doesn't like the color of her hand. per staff, eating. selective with medications. irritable at times. mostly ignoring staff. slept well overnight. 12b up tomorrow. Mental Status Exam Mental Status Exam Narrative: hospital attire, adequately groomed, lying in bed. not cooperative with staff. no PMA/PMR. hyperverbal. thoughts disorganized. affect constricted, normo-intense, non-labile. mood not assessed. SI/HI/AVH not assessed. Diagnostics Vital Signs (24Hr): Vital Signs - 24 hr 04/14/25 20:00 04/15/25 08:00 04/15/25 08:46 Temperature 98 F 97.8 F Pulse Rate 96 100 Respiratory Rate 18 18 Blood Pressure 161/78 H 183/74 H 183/74 H Pulse Oximetry 99 96 Oxygen Delivery Method Room Air Room Air 04/15/25 08:46 Temperature Pulse Rate Respiratory Rate Blood Pressure 183/74 H Pulse Oximetry Oxygen Delivery Method BMI result Body Mass Index 33.0 Medications Medications Current Medications Acetaminophen (Acetaminophen 325 Mg Tablet) 650 mg PO Q6H PRN PRN Reason: Headache/Pain, Scale 1-10 Al Hydroxide/Mg Hydroxide (Magnesium Hydrox/Alum Hydrox 30 Ml Oral.Susp) 30 ml PO Q6H PRN PRN Reason: Heartburn/Nausea Amlodipine Besylate (Amlodipine Besylate 5 Mg Tablet) 5 mg PO DAILY REPLACED BY [facility]; Protocol Last Admin: 04/15/25 08:46 Dose: 5 mg Artificial Tears (Artificial Tears 15 Ml Drops) 2 drop EYE-BOTH Q4H PRN PRN Reason: Dry Eye(S) Atorvastatin Calcium (Atorvastatin Calcium 80 Mg Tablet) 80 mg PO BEDTIME REPLACED BY [facility] Last Admin: 04/14/25 20:14 Dose: 80 mg Calcium Carbonate (Calcium Oyster Shell Elemental 500 Mg Tablet) 500 mg PO DAILY REPLACED BY [facility] Last Admin: 04/15/25 08:44 Dose: 500 mg Valsartan 160 mg/ (Hydrochlorothiazide 12.5 mg) 0 mg PO DAILY REPLACED BY [facility] Last Admin: 04/15/25 08:59 Dose: 160 tablet Divalproex Sodium (Divalproex Sodium 500 Mg Tablet.) 500 mg PO BEDTIME REPLACED BY [facility] Last Admin: 04/14/25 20:14 Dose: 500 mg Docusate Sodium (Docusate Sodium 100 Mg Capsule) 100 mg PO DAILY PRN PRN Reason: Constipation Magnesium Hydroxide (Milk Of Magnesia 30 Ml Oral.Susp) 30 ml PO DAILY PRN PRN Reason: Constipation Nifedipine (Nifedipine Er 60 Mg Tab.Er.24) 60 mg PO DAILY REPLACED BY [facility]; Protocol Last Admin: 04/15/25 08:46 Dose: 60 mg Olanzapine (Olanzapine Odt 10 Mg Tab.Rapdis) 10 mg TRANSLINGU DAILY REPLACED BY [facility] Last Admin: 04/15/25 08:44 Dose: 10 mg Olanzapine (Olanzapine Odt 10 Mg Tab.Rapdis) 20 mg TRANSLINGU BEDTIME REPLACED BY [facility] Last Admin: 04/14/25 20:14 Dose: 20 mg Olanzapine (Olanzapine 10 Mg Vial) 10 mg IM BID PRN PRN Reason: refusal of PO. per fariha. Omeprazole (Omeprazole 20 Mg Capsule.) 20 mg PO DAILY@0630 REPLACED BY [facility] Last Admin: 04/15/25 06:34 Dose: 20 mg Simethicone (Simethicone 80 Mg Tab.Chew) 80 mg PO DAILY PRN PRN Reason: Constipation Trazodone HCl (Trazodone Hcl 50 Mg Tablet) 50 mg PO BEDTIME MRX1 PRN PRN Reason: Insomnia Vitamin D (Cholecalciferol (Vitamin D3) 25 Mcg Tablet) 100 mcg PO DAILY REPLACED BY [facility] Last Admin: 04/15/25 08:44 Dose: 100 mcg Allergies Allergies Allergy/AdvReac Type Severity Reaction Status Date / Time blueberry (Blueberry) Allergy Severe SWELLING Verified 04/10/25 23:30 lisinopril Allergy Intermediate cough Verified 04/10/25 23:30 mushroom Allergy Intermediate SWELLING Verified 04/10/25 23:30 shellfish derived (SHELLFISH Allergy Unknown UNKNOWN Verified 04/10/25 23:30 DERIVED) thioridazine Allergy Unknown Unknown Verified 04/10/25 23:30 tomato (TOMATO) Allergy Unknown UNKNOWN Verified 04/10/25 23:30 CHOCOLATE Allergy Intermediate ITCHING Uncoded 04/10/25 23:30 From MELLARIL Allergy Intermediate SHORTNESS Uncoded 04/10/25 23:30 OF BREATH From THORAZINE Allergy Intermediate SHORTNESS Uncoded 04/10/25 23:30 OF BREATH Assessment & Plan Assessment & Plan (1) Schizophrenia: Qualifiers: Schizophrenia type: undifferentiated schizophrenia Qualified Code(s): F20.3 - Undifferentiated schizophrenia Status: Acute Code(s): F20.9 - Schizophrenia, unspecified (2) HTN (hypertension): Qualifiers: Hypertension type: essential hypertension Qualified Code(s): I10 - Essential (primary) hypertension Status: Acute Code(s): I10 - Essential (primary) hypertension Plan 04/13: enforce kev's medications with IMs. zyprexa 06/14 with 10 mg IM back-up. otherwise continue outpt regimen. 04/14/25: Patient only slept for 4 hours, difficulty falling asleep, refused medication except for Zyprexa at bedtime last night. When this provider asked if she has slept well she say very clearly yes, and also reports eating well. Patient is mumbling, not understandable what she was saying majority of the time during assessment. When asked her to take medication as prescribed, she says what medications?. And then when I mentioned the Depakote, he she asked what is that for . Educate patient on Depakote's indications. Patient is receptive and nod her head that she will take medication. She is wearing the hat, visible on the unit, no angry outbursts. Per nursing, she tried to refused medication in the morning, but took them with encouragement except vitamins. She reports back pain, and pain all over the body as I walk a lot . No other safety concerns. 04/15: lying in bed, disorganized. slective with meds. slept well. 12b up tomorrow. Reason for continued inpatient stay Substantial Risk for: inability to function and rapid decompensation Time Spent With Patient Time: Total time managing care of this patient today __25__ minutes.
[2025-04-15] MEDS: Magnesium Hydrox/Alum Hydrox 30 ML ORAL.SUSP PO (14:52)
[2025-04-15 20:00] VITALS: RESP 18
[2025-04-15] MEDS: OLANZapine ODT 10 MG TAB.RAPDIS 20 MG TRANSLINGU (20:12)
[2025-04-16 06:55] LABS: Glucose, Whole Blood 101 mg/dL (60-115)
[2025-04-16 11:40] VITALS: BP 119/56; PULSE 92; RESP 14; O2SAT 96
[2025-04-16] MEDS: Valsartan 160 MG, hydroCHLOROthiazide 12.5 MG PO (11:43)
[2025-04-16] MEDS: OLANZapine ODT 10 MG TAB.RAPDIS TRANSLINGU (11:44)
[2025-04-16] MEDS: NIFEdipine ER 60 MG TAB.ER.24 PO (11:44)
--- NOTE | 2025-04-16 12:02 | PM.PSYDC ---
DS: Providers Provider Date of Service: 04/16/25 Date of admission: 04/13/25 11:18 Date of discharge: 04/16/25 Primary care physician: Unknown Physician DS: Diagnosis Discharge Diagnosis (1) Schizophrenia: Status: Acute (2) HTN (hypertension): Status: Acute DS: Medications Discharge Medications Home Medications: Previous Rx's ?Medication ?Instructions ?Recorded amlodipine 5 mg tablet 5 mg PO DAILY 30 days #30 tabs 04/16/25 atorvastatin 80 mg tablet 80 mg PO BEDTIME 30 days #30 tabs 04/16/25 calcium carbonate 500 mg PO DAILY 30 days #30 tabs 04/16/25 cholecalciferol (vitamin D3) 50 100 mcg (2 x 50 mcg (2,000 unit)) 04/16/25 mcg (2,000 unit) tablet (Vitamin PO DAILY 30 days #60 tabs D3) divalproex 500 mg tablet,delayed 500 mg PO BEDTIME 30 days #30 tabs 04/16/25 release docusate sodium 100 mg capsule 100 mg PO DAILY PRN Constipation 04/16/25 30 days #30 caps nifedipine 60 mg tablet,extended 60 mg PO DAILY 30 days #30 tabs 04/16/25 release 24 hr olanzapine 20 mg tablet 20 mg PO BEDTIME 30 days #30 tabs 04/16/25 olanzapine 5 mg tablet 10 mg (2 x 5 mg) PO DAILY 30 days 04/16/25 #60 tabs omeprazole 20 mg capsule,delayed 20 mg PO DAILY@0630 30 days #30 04/16/25 release caps peg [id number] 1 2 drp ophthalmic (eye) Q4H PRN Dry 04/16/25 %-0.2 %-0.2 % eye drops Eye(S) 30 days #15 mL (Artificial Tears ([id number])) simethicone 80 mg chewable tablet 80 mg PO DAILY PRN Constipation 30 04/16/25 days #30 tabs valsartan 160 1 tab PO DAILY 30 days #30 tabs 04/16/25 mg-hydrochlorothiazide 12.5 mg tablet Mental Status Exam Mental Status Exam Narrative: hospital attire, adequately groomed, up and about. cooperative with staff. no PMA/PMR. hyperverbal. thoughts disorganized. affect constricted, normo-intense, non-labile. mood not assessed. no SI/HI/AVH expressed. Data Data Completed and Pending Completed studies during hospitalization [Text1]: 04/11/25 04/11/25 04/16/25 01:01 01:02 06:46 POC Glucose 101 Urine Color Yellow Urine Appearance Clear Urine pH 6.5 Ur Specific [place] 1.010 Urine Protein Negative Urine Glucose (UA) Negative Urine Ketones Negative Urine Blood Negative Urine Nitrite Negative Ur Leukocyte Esterase Negative Urine Opiates Screen Not Detected Ur Buprenorphine Scrn Not Detected Ur Oxycodone Screen Not Detected Urine Methadone Screen Not Detected Urine Fentanyl Screen Not Detected Ur Barbiturates Screen Not Detected Ur Phencyclidine Scrn Not Detected Ur Amphetamines Screen Not Detected U Benzodiazepines Scrn Not Detected Urine Cocaine Screen Not Detected U Marijuana (THC) Screen Not Detected DS: Summary Hospital Course Hospital Course: per 04/13 admission note: HPI Narrative: per CARE team medardo, pt was seen by community crisis and referred for admission. pt's neighbors reportedly contacted crisis requesting an evaluation as pt had begun to behave strangely, had locked herself in her bathroom for more than 30 minutes and was not responding to attempts to communicate with her. pt has outpt fried and guardian. in ED pt was not cooperative with evaluation, refusing lab tests, VS, and studies. some intrusive and agitated behaviors in the ED, sleeping only upright in chair. referred for magali admission and accepted. on interview with MD on the unit pt loud, argumentative, oppositional. stated she wants to discharge now and that she will not take medications. MD explained legal basis for forced medication. pt demanding to see her room and take a shower, ultimately unable to engage patient in traditional psychiatric interview. pt was informed that per court order if she refused her olanzapine PO, it would be given IM. Past Psychiatric History: [facility] client, kev's order and guardian. Schizoaffective D/O Dx per [facility]ps: numerous prior, [place] [facility] [facility] [place], [facility] [place], [facility]. outpt: [facility] Evaluation Reviewed: Yes [facility] Medical History Constipation Schizophrenia Diabetes 1.5, managed as type 2 Schatzki's ring Glaucoma GERD (gastroesophageal reflux disease) Hyperlipidemia Bipolar 1 disorder Surgical History History of cataract surgery History of total abdominal hysterectomy History of section Family History: unknown Social History: lives in her own apartment. 2 adult children. born in [place]. moved to [place] in 1997. Substance History: utox NEG. no known drug Hx. Trauma History: none reported. Precis: 04/13: enforce kev's medications with IMs. zyprexa 06/14 with 10 mg IM back-up. otherwise continue outpt regimen. 04/14/25: Patient only slept for 4 hours, difficulty falling asleep, refused medication except for Zyprexa at bedtime last night. When this provider asked if she has slept well she say very clearly yes, and also reports eating well. Patient is mumbling, not understandable what she was saying majority of the time during assessment. When asked her to take medication as prescribed, she says what medications?. And then when I mentioned the Depakote, he she asked what is that for . Educate patient on Depakote's indications. Patient is receptive and nod her head that she will take medication. She is wearing the hat, visible on the unit, no angry outbursts. Per nursing, she tried to refused medication in the morning, but took them with encouragement except vitamins. She reports back pain, and pain all over the body as I walk a lot . No other safety concerns. 04/15: lying in bed, disorganized. selective with meds. slept well. 12b up tomorrow. 04/16: up and about. has taken meds since 04/14. less labile. 12b up today, pt is not currently committable. behaviors have been under good control in the hospital, pt requesting discharge. per chart review, there are insufficient grounds to hold pt in hospital any longer against her will. meds reviewed, reconciled, prescribed. pt discharged to home with outpt F/U. Time Spent with Patient Time attestation: Total time managing care of this patient today __35__ minutes. Discharge Plan Discharge Anticipated Discharge Date/Time: 04/16/25 13:45 Patient Disposition: Home, Self-Care Discharge Diagnosis: Schizophrenia Hypertension Referrals: Physician,Unknown J [Primary Care Provider, Medical] - 1 Week Discharge Medications: Continued atorvastatin 80 mg Tablet 80 mg PO BEDTIME 30 Days Qty: 30 0RF valsartan-hydrochlorothiazide 160-12.5 mg tablet 1 tab PO DAILY 30 Days Qty: 30 0RF amlodipine 5 mg Tablet 5 mg PO DAILY 30 Days Qty: 30 0RF divalproex 500 mg Tablet,Delayed Release (Dr/Ec) 500 mg PO BEDTIME 30 Days Qty: 30 0RF calcium carbonate 500 mg calcium (1,250 mg) Tablet 500 mg PO DAILY 30 Days Qty: 30 0RF nifedipine 60 mg Tablet Extended Release 24hr 60 mg PO DAILY 30 Days Qty: 30 0RF docusate sodium 100 mg Capsule 100 mg PO DAILY PRN (Reason: Constipation) 30 Days Qty: 30 0RF omeprazole 20 mg Capsule,Delayed Release(Dr/Ec) 20 mg PO DAILY@0630 30 Days Qty: 30 0RF olanzapine 20 mg tablet 20 mg PO BEDTIME 30 Days Qty: 30 0RF simethicone 80 mg Tablet,Chewable 80 mg PO DAILY PRN (Reason: Constipation) 30 Days Qty: 30 0RF Artificial Tears(ca-ryky-exmg) 1-0.2-0.2 % Drops 2 drp OPHTHALMIC (EYE) Q4H PRN (Reason: Dry Eye(S)) 30 Days Qty: 15 0RF cholecalciferol (vitamin D3) [Vitamin D3] 50 mcg (2,000 unit) Tablet 100 mcg PO DAILY 30 Days Qty: 60 0RF Changed olanzapine 5 mg Tablet 10 mg PO DAILY 30 Days Qty: 60 0RF Discharge Orders: Discharge Order (Routine); Ordered 04/16/25 Ordered By: Remy Galeano Diet: Advance to usual diet Activity on Discharge: As tolerated Stand Alone Forms: Patient Portal Discharge page Print Language: Citizen Of [place] Care Plan Goals: remain safe and stable in the outpatient treatment setting Health Concerns: hypertension Plan of Treatment: take medications as prescribed, attend appointments as scheduled Assessment: not at imminent risk of harm to self or others due to mental illness
== END 2025-04-16 14:25 | disposition home or self-care (01) | DRG 885 ==
LOC: HO.ED 04-11 00:52 → HO.PGERI 04-13 11:29
PROVIDERS: Admitting Provider Psychiatry & Neurology Psychiatry; Emergency Provider Emergency Medicine; Visit Provider Psychiatry & Neurology Psychiatry
DX: F20.9 Schizophrenia, unspecified (principal); I10 Essential (primary) hypertension; Z87.891 Personal history of nicotine dependence; Z79.899 Other long term (current) drug therapy
CPT/HCPCS: 80307; 81003; 82947; 99285; S9485

== ENCOUNTER → 2025-04-13 11:18 | Outpatient (BNV) | payer OTHER, SELFPAY | PROVIDERS: Admitting Provider Psychiatry & Neurology Psychiatry; Emergency Provider Emergency Medicine; Visit Provider Psychiatry & Neurology Psychiatry | DX: F20.3 Undifferentiated schizophrenia (principal); I10 Essential (primary) hypertension | CPT/HCPCS: 90792; 99239 ==

== ENCOUNTER → 2025-08-13 17:52 | Outpatient (BNV) | payer OTHER, SELFPAY | PROVIDERS: Emergency Provider Emergency Medicine Emergency Medical Services; Visit Provider Radiology Diagnostic Radiology | DX: R41.82 Altered mental status, unspecified (principal) | CPT/HCPCS: 71045 ==

== ENCOUNTER → 2025-08-16 00:47 | Outpatient (BNV) | payer OTHER, SELFPAY | PROVIDERS: Emergency Provider Emergency Medicine Emergency Medical Services; Visit Provider Internal Medicine Cardiovascular Disease | DX: R94.31 Abnormal electrocardiogram [ECG] [EKG] (principal); I95.9 Hypotension, unspecified | CPT/HCPCS: 93010 ==

== ENCOUNTER → 2025-08-16 02:20 | Outpatient (BNV) | payer OTHER, SELFPAY | PROVIDERS: Emergency Provider Emergency Medicine Emergency Medical Services; Visit Provider Radiology Diagnostic Radiology | DX: R41.82 Altered mental status, unspecified (principal) | CPT/HCPCS: 70450; 71045 ==

== ENCOUNTER → 2025-08-16 11:57 | Outpatient (BNV) | payer OTHER, SELFPAY | PROVIDERS: Admitting Provider Social Worker; Emergency Provider Emergency Medicine Emergency Medical Services; Visit Provider Psychiatry & Neurology Psychiatry | DX: F20.3 Undifferentiated schizophrenia (principal); Z91.148 Patient's other noncompliance with medication regimen for other reason; I10 Essential (primary) hypertension; E78.00 Pure hypercholesterolemia, unspecified; E66.9 Obesity, unspecified; K21.9 Gastro-esophageal reflux disease without esophagitis; M51.369 Other intervertebral disc degeneration, lumbar region without mention of lumbar back pain or lower extremity pain | CPT/HCPCS: 99231 ==

== ENCOUNTER → 2025-08-16 11:57 | Outpatient (BNV) | payer OTHER, SELFPAY | PROVIDERS: Admitting Provider Social Worker; Emergency Provider Emergency Medicine Emergency Medical Services; Visit Provider Psychiatry & Neurology Forensic Psychiatry | DX: F25.9 Schizoaffective disorder, unspecified (principal); I10 Essential (primary) hypertension; F20.3 Undifferentiated schizophrenia; E78.00 Pure hypercholesterolemia, unspecified; E66.9 Obesity, unspecified; K21.9 Gastro-esophageal reflux disease without esophagitis | CPT/HCPCS: 90792; 99231; 99232 ==

== ENCOUNTER → 2025-08-16 11:57 | Outpatient (BNV) | payer OTHER, SELFPAY | PROVIDERS: Admitting Provider Social Worker; Emergency Provider Emergency Medicine Emergency Medical Services; Visit Provider Nurse Practitioner Family | DX: I10 Essential (primary) hypertension (principal) | CPT/HCPCS: 99221 ==